=== PATIENT | male | born 1950 | race Caucasian/White ===

== ENCOUNTER 2017-02-06 16:23 | Emergency (ER) | payer MEDICARE ==
[2017-02-06] MEDS ORDERED: PANTOPRAZOLE 40 MG/10 ML VIAL IVP STA (17:04)
[2017-02-06] MEDS ORDERED: SODIUM CHLORIDE 0.9% 1,000 ML IV STA (17:04)
[2017-02-06] MEDS ORDERED: SODIUM CHLORIDE 0.9% 500 ML IV STA (17:04)
[2017-02-06] MEDS ORDERED: ONDANSETRON 4 MG/2 ML VIAL IVP STA (17:04)
[2017-02-06 17:19] LABS: Basophils % (A) 1 %; CH 29.4; CHCM 33.3; Eosinophils # (A) 0.2 k/uL (0-0.7); Eosinophils % (A) 2 %; HCT 31.4 % (39.0-53.0); HDW 3.28; HGB 10.1 gm/dL (13.0-17.5); Luc # (Auto) 0.22; Luc % (Auto) 4; Lymphocytes # (A) 1.2 k/uL (1.0-4.8); Lymphocytes % (A) 19 %; MCH 28.5 pg (25.0-35.0); MCHC 32.2 g/dL (31.0-37.0); MCV 88.4 fL (80.0-100.0); Mean Platelet Volume 10.5; Monocytes # (A) 0.4 k/uL (0-1.0); Monocytes % (A) 7 %; Neutrophils # (A) 4.3 k/uL (1.3-7.7); Neutrophils % (A) 68 %; RBC 3.55 m/uL (4.30-5.90); RDW 14.8 % (11.5-15.5); WBC 6.3 k/uL (3.8-10.6); WBC (Perox) 6.31
[2017-02-06 17:27] LABS: ALT 29 U/L (21-72); AST 24 U/L (17-59); Alkaline Phosphatase 73 U/L (38-126); Anion Gap 9 mmol/L; Blood Urea Nitrogen 15 mg/dL (9-20); Calcium 9.2 mg/dL (8.4-10.2); Carbon Dioxide 25 mmol/L (22-30); Chloride 107 mmol/L (98-107); Glucose 209 mg/dL (74-99); Non-African American GFR(MDRD) >60 (>60 ml/min/1.73 sqM); Potassium 4.3 mmol/L (3.5-5.1); Sodium 141 mmol/L (137-145); Total Bilirubin 0.2 mg/dL (0.2-1.3); Total Protein 6.6 g/dL (6.3-8.2)
[2017-02-06 17:33] LABS: INR 0.9 (<1.2); Prothrombin Time 9.7 sec (9.0-12.0)
[2017-02-06 17:42] LABS: Partial Thromboplastin Time 21.7 sec (22.0-30.0)
[2017-02-06 17:44] LABS: Creatine Kinase 50 U/L (55-170)
[2017-02-06 17:57] LABS: Creatine Kinase MB 0.3 ng/mL (0.0-2.4); Troponin I <0.012 ng/mL (0.000-0.034)
[2017-02-06 18:50] VITALS: RESP 18
[2017-02-06 20:03] VITALS: BP 155/94; PULSE 93; TEMP 97.7
--- NOTE | 2017-02-06 20:08 | ED ---
GI Bleed HPI - General Chief complaint: GI Bleed Stated complaint: Rectal Bleeding Time Seen by Provider: 02/06/17 17:03 Source: patient Mode of arrival: ambulatory Limitations: no limitations - History of Present Illness Initial comments: This 66-year-old white male presents complaining of a GI bleed. He apparently started having blood in his J-tube approximately 3-4 days ago. He states that he lost a fairly significant amount of blood but it is difficult to quantify. He stopped his Plavix and the bleeding stopped yesterday. He apparently has had several incidents that were quite similar stopped once he stopped his Plavix. He is on his Plavix due to previous CVA. He does have a history of previous colitis requiring colectomy and that is why he has the J-tube. He apparently has an appointment with Dr. Webb from gastroenterology tomorrow morning. He apparently has had some fatigue and has been sleeping more than normal. He is somewhat lightheaded with standing. He denies any chest pain or shortness of breath. He has not had any further bleeding since yesterday. No other complaints or modifying factors. - Related Data Home Medications Medication Instructions Recorded Confirmed Atorvastatin [Lipitor] 40 mg PO DAILY 02/06/17 02/06/17 Calcium Polycarbophil [Fibercon] 625 mg PO HS 02/06/17 02/06/17 DULoxetine HCL [Cymbalta] 60 mg PO DAILY 02/06/17 02/06/17 Fexofenadine HCl [Lu Allergy] 180 mg PO DAILY 02/06/17 02/06/17 Finasteride [Proscar] 5 mg PO DAILY 02/06/17 02/06/17 Insulin Glargine [Lantus] 36 unit SQ 02/06/17 02/06/17 L.acidoph,Paracasei, B.lactis 1 cap PO DAILY 02/06/17 02/06/17 [Probiotic] Linagliptin [Tradjenta] 5 mg PO DAILY 02/06/17 02/06/17 Losartan [Cozaar] 50 mg PO DAILY 02/06/17 02/06/17 Metoprolol Succinate [Toprol XL] 100 mg PO QAM 02/06/17 02/06/17 Multivit-Min/FA/Lycopen/Lutein 1 cap PO DAILY 02/06/17 02/06/17 [Centrum Silver Men Tablet] Tamsulosin [Flomax] 0.4 mg PO HS 02/06/17 02/06/17 Trospium Chloride [Sanctura] 20 mg PO BID 02/06/17 02/06/17 amLODIPine [Norvasc] 10 mg PO HS 02/06/17 02/06/17 Allergies Allergy/AdvReac Type Severity Reaction Status Date / Time codeine Allergy Rash/Hives Verified 02/06/17 16:46 morphine Allergy Rash/Hives Verified 02/06/17 16:46 Review of Systems ROS Statement: Those systems with pertinent positive or pertinent negative responses have been documented in the HPI. ROS Other: All systems not noted in ROS Statement are negative. Past Medical History Past Medical History: CVA/TIA, Diabetes Mellitus, Hypertension History of Any Multi-Drug Resistant Organisms: None Reported Past Surgical History: Joint Replacement Additional Past Surgical History / Comment(s): J pouch, left partial knee replacement Past Psychological History: Depression Smoking Status: Former smoker Past Alcohol Use History: Rare Past Drug Use History: None Reported General Exam - General Exam Comments Initial Comments: GENERAL: The patient is well nourished and well hydrated. VITAL SIGNS: Heart rate, blood pressure, respiratory rate reviewed as recorded in nurse's notes. EYES: Pupils are round and reactive. Extraocular movements are intact. No conjunctival / lid redness or swelling. ENT: No external evidence of injury, swelling, or ecchymosis. Airway is patent. Throat is clear. NECK: Nontender. No swelling or evidence of injury. No subcutaneous emphysema. Trachea is midline. No thyroid mass. HEART: Regular rate and rhythm. Good peripheral pulses. LUNGS/CHEST: Breath sounds clear and equal bilaterally. No rales, rhonchi, or wheezes. No ecchymosis, subcutaneous emphysema, or tenderness. ABDOMEN: Abdomen soft without tenderness. No palpable masses or organomegaly. No peritoneal signs. No abdominal wall swelling or ecchymosis. The patient has a J-tube in the right abdomen. EXTREMITIES: No extremity tenderness. Normal muscle tone and function. No thoracolumbar tenderness. NEUROLOGIC: Sensation is grossly intact. Cranial nerve exam reveals face is symmetrical, tongue is midline, speech is clear. SKIN: No abrasions or ecchymosis is noted. No induration or masses noted. PSYCHIATRIC: Alert and oriented. Appropriate behavior and judgment. Limitations: no limitations Course Vital Signs 02/06/17 02/06/17 02/06/17 16:33 18:50 20:00 Temperature 97.9 F 97.7 F Pulse Rate 86 74 93 Respiratory 16 18 18 Rate Blood Pressure 111/75 140/81 155/94 O2 Sat by Pulse 97 95 95 Oximetry Medical Decision Making - Medical Decision Making The patient was seen and examined. All diagnostics were reviewed. The laboratory does show an anemia with a hemoglobin of 10.1. There are no old for comparison. The family is unsure of what his previous hemoglobin was. He does receive some fluids in the emergency department and is feeling much improved. He is requesting to be discharged from the ER. Admission was discussed but he states that he does not want to stay in the hospital and has an appointment with a specialist in the morning. Overall, it is felt as though this is fairly reasonable. Return parameters are discussed. It is felt as though he would need a workup as to why he is having this GI bleeding. He is to discuss further Plavix dosing with his specialist and her primary doctor. He leaves in no identifiable distress. - Lab Data Result diagrams: 02/06/17 17:08 02/06/17 17:08 Lab Results 02/06/17 02/06/17 02/06/17 Range/Units 17:08 17:08 17:08 WBC 6.3 (3.8-10.6) k/uL RBC 3.55 L (4.30-5.90) m/uL Hgb 10.1 L (13.0-17.5) gm/dL Hct 31.4 L (39.0-53.0) % MCV 88.4 (80.0-100.0) fL MCH 28.5 (25.0-35.0) pg MCHC 32.2 (31.0-37.0) g/dL RDW 14.8 (11.5-15.5) % Plt Count 185 (150-450) k/uL Neutrophils % 68 % Lymphocytes % 19 % Monocytes % 7 % Eosinophils % 2 % Basophils % 1 % Neutrophils # 4.3 (1.3-7.7) k/uL Lymphocytes # 1.2 (1.0-4.8) k/uL Monocytes # 0.4 (0-1.0) k/uL Eosinophils # 0.2 (0-0.7) k/uL Basophils # 0.0 (0-0.2) k/uL PT (9.0-12.0) sec INR (<1.2) APTT (22.0-30.0) sec Sodium 141 (137-145) mmol/L Potassium 4.3 (3.5-5.1) mmol/L Chloride 107 (98-107) mmol/L Carbon Dioxide 25 (22-30) mmol/L Anion Gap 9 mmol/L BUN 15 (9-20) mg/dL Creatinine 0.90 (0.66-1.25) mg/dL Est GFR (MDRD) Af Amer >60 (>60 ml/min/1.73 sqM) Est GFR (MDRD) Non-Af >60 (>60 ml/min/1.73 sqM) Glucose 209 H (74-99) mg/dL Calcium 9.2 (8.4-10.2) mg/dL Total Bilirubin 0.2 (0.2-1.3) mg/dL AST 24 (17-59) U/L ALT 29 (21-72) U/L Alkaline Phosphatase 73 (38-126) U/L Total Creatine Kinase 50 L (55-170) U/L CK-MB (CK-2) 0.3 (0.0-2.4) ng/mL CK-MB (CK-2) Rel Index 0.6 Troponin I <0.012 (0.000-0.034) ng/mL Total Protein 6.6 (6.3-8.2) g/dL Albumin 4.1 (3.5-5.0) g/dL TSH (0.465-4.680) mIU/L 02/06/17 02/06/17 Range/Units 17:08 17:08 WBC (3.8-10.6) k/uL RBC (4.30-5.90) m/uL Hgb (13.0-17.5) gm/dL Hct (39.0-53.0) % MCV (80.0-100.0) fL MCH (25.0-35.0) pg MCHC (31.0-37.0) g/dL RDW (11.5-15.5) % Plt Count (150-450) k/uL Neutrophils % % Lymphocytes % % Monocytes % % Eosinophils % % Basophils % % Neutrophils # (1.3-7.7) k/uL Lymphocytes # (1.0-4.8) k/uL Monocytes # (0-1.0) k/uL Eosinophils # (0-0.7) k/uL Basophils # (0-0.2) k/uL PT 9.7 (9.0-12.0) sec INR 0.9 (<1.2) APTT 21.7 L (22.0-30.0) sec Sodium (137-145) mmol/L Potassium (3.5-5.1) mmol/L Chloride (98-107) mmol/L Carbon Dioxide (22-30) mmol/L Anion Gap mmol/L BUN (9-20) mg/dL Creatinine (0.66-1.25) mg/dL Est GFR (MDRD) Af Amer (>60 ml/min/1.73 sqM) Est GFR (MDRD) Non-Af (>60 ml/min/1.73 sqM) Glucose (74-99) mg/dL Calcium (8.4-10.2) mg/dL Total Bilirubin (0.2-1.3) mg/dL AST (17-59) U/L ALT (21-72) U/L Alkaline Phosphatase (38-126) U/L Total Creatine Kinase (55-170) U/L CK-MB (CK-2) (0.0-2.4) ng/mL CK-MB (CK-2) Rel Index Troponin I (0.000-0.034) ng/mL Total Protein (6.3-8.2) g/dL Albumin (3.5-5.0) g/dL TSH 1.820 (0.465-4.680) mIU/L Disposition Clinical Impression: GI bleed, Anemia, Fatigue Disposition: HOME SELF-CARE Condition: Fair Instructions: Gastrointestinal Bleeding (ED) Additional Instructions: Please follow-up with your GI specialist tomorrow as scheduled and return if symptoms do reoccur or worsen. Referrals: Miguel Bautista MD [Primary Care Provider] - 1-2 days Leonora Escoto MD [STAFF PHYSICIAN] - 1-2 days Time of Disposition: 20:07 Decision Date: 02/06/17 Decision Time: 20:07
== END 2017-02-06 20:20 | disposition home or self-care (01) ==
LOC: EC 16:23
DX: K92.2 Gastrointestinal hemorrhage, unspecified (principal); D64.9 Anemia, unspecified; I10 Essential (primary) hypertension; E11.9 Type 2 diabetes mellitus without complications; F32.9 Major depressive disorder, single episode, unspecified; Z87.891 Personal history of nicotine dependence; Z79.02 Long term (current) use of antithrombotics/antiplatelets; Z79.4 Long term (current) use of insulin; Z79.84 Long term (current) use of oral hypoglycemic drugs; Z79.899 Other long term (current) drug therapy; Z88.5 Allergy status to narcotic agent; Z86.73 Personal history of transient ischemic attack (TIA), and cerebral infarction without residual deficits; Z93.4 Other artificial openings of gastrointestinal tract status; Z53.20 Procedure and treatment not carried out because of patient's decision for unspecified reasons
CPT/HCPCS: 36415; 80053; 84443; 82550; 82553; 84484; 85025; 85610; 85730; 99284; 96374; 96361 ×3; C9113

== ENCOUNTER → 2017-02-09 | Outpatient (CLI) | payer MEDICARE ==
[2017-02-09 12:34] LABS: CH 28.1; CHCM 32.5; HCT 30.5 % (39.0-53.0); HDW 3.47; HGB 10.1 gm/dL (13.0-17.5); Hypochromasia Slight; MCH 28.7 pg (25.0-35.0); MCHC 33.1 g/dL (31.0-37.0); MCV 86.8 fL (80.0-100.0); Mean Platelet Volume 9.9; Poikilocytosis Slight; RBC 3.52 m/uL (4.30-5.90); WBC 6.5 k/uL (3.8-10.6)
[2017-02-09 12:50] LABS: % Iron Saturation 9.2 % (20-50)
[2017-02-09 13:21] LABS: Erythrocyte Sedimentation Rate 21 mm/hr (0-15)
== END | disposition home or self-care (01) ==
LOC: LABWHC1 11:50
PROVIDERS: ATTEND Physician Assistant
DX: D64.9 Anemia, unspecified (principal)
CPT/HCPCS: 36415; 82728; 83540; 83550; 85027; 85652

== ENCOUNTER 2017-02-28 01:23 | Emergency (ER) | payer MEDICARE, OTHER ==
[2017-02-28 01:32] VITALS: RESP 18; TEMP 97.1
[2017-02-28] MEDS ORDERED: RX INFO: IV CONTRAST WAS GIVEN 1 EACH MISC MISCELLANE PRN (01:34)
[2017-02-28] MEDS ORDERED: SODIUM CHLORIDE 0.9% 1,000 ML IV STA (01:34)
--- NOTE | 2017-02-28 01:58 | ED ---
Abdominal Pain HPI - General Chief Complaint: Abdominal Pain Stated Complaint: abd pain Time Seen by Provider: 02/28/17 01:33 Source: patient, family, RN notes reviewed Mode of arrival: ambulatory Limitations: no limitations - History of Present Illness Initial Comments: This is a 66-year-old male presents emergency Department with chief complaint of abdominal pain, unable to urinate or have a bowel movement. Patient states that he is not fully urinated since 2:00 issue afternoon. Patient states that he has to frequently go her only gets a few dribbles out. Patient went of severe right-sided abdominal pain. Patient is concerned that she's had a bowel resection 20 years ago and has a J-pouch. Patient states he normally has frequent bowel movements but states he has not had any bowel movement. Patient' s had a bowel obstruction shortly after his initial surgery was states that he has not had any recent complications. Patient states that he has been admitted to Hospital recently and is currently seen GI physician for rectal bleeding. Patient states that he scheduled this Monday for an upper and lower scope. Patient states that the bleeding has not worsened usual states it comes and goes. - Related Data Home Medications Medication Instructions Recorded Confirmed Atorvastatin [Lipitor] 40 mg PO DAILY 02/06/17 02/28/17 Calcium Polycarbophil [Fibercon] 625 mg PO HS 02/06/17 02/28/17 DULoxetine HCL [Cymbalta] 60 mg PO DAILY 02/06/17 02/28/17 Fexofenadine HCl [Lu Allergy] 180 mg PO DAILY 02/06/17 02/28/17 Finasteride [Proscar] 5 mg PO DAILY 02/06/17 02/28/17 Insulin Glargine [Lantus] 36 unit SQ HS 02/06/17 02/28/17 L.acidoph,Paracasei, B.lactis 1 cap PO DAILY 02/06/17 02/28/17 [Probiotic] Linagliptin [Tradjenta] 5 mg PO DAILY 02/06/17 02/28/17 Losartan [Cozaar] 50 mg PO DAILY 02/06/17 02/28/17 Metoprolol Succinate [Toprol XL] 100 mg PO QAM 02/06/17 02/28/17 Multivit-Min/FA/Lycopen/Lutein 1 cap PO DAILY 02/06/17 02/28/17 [Centrum Silver Men Tablet] Tamsulosin [Flomax] 0.4 mg PO HS 02/06/17 02/28/17 Trospium Chloride [Sanctura] 20 mg PO BID 02/06/17 02/28/17 amLODIPine [Norvasc] 10 mg PO HS 02/06/17 02/28/17 Dicyclomine [Bentyl] 10 mg PO TID 02/28/17 02/28/17 Previous Rx's Medication Instructions Recorded Hydrocodone/Acetaminophen [Banks 1 tab PO Q6HR PRN #20 tab 02/28/17 5-325] Ondansetron Odt [Zofran Odt] 4 mg PO Q8HR PRN #10 tab 02/28/17 Tamsulosin [Flomax] 0.4 mg PO DAILY #7 cap 02/28/17 Allergies Allergy/AdvReac Type Severity Reaction Status Date / Time codeine Allergy Rash/Hives Verified 02/28/17 01:31 morphine Allergy Rash/Hives Verified 02/28/17 01:31 Review of Systems ROS Statement: Those systems with pertinent positive or pertinent negative responses have been documented in the HPI. ROS Other: All systems not noted in ROS Statement are negative. Past Medical History Past Medical History: CVA/TIA, Diabetes Mellitus, Hypertension History of Any Multi-Drug Resistant Organisms: None Reported Past Surgical History: Appendectomy, Hernia Repair, Joint Replacement Additional Past Surgical History / Comment(s): J pouch, left partial knee replacement Past Psychological History: Depression Smoking Status: Former smoker Past Alcohol Use History: Rare Past Drug Use History: None Reported General Exam Limitations: no limitations General appearance: alert, in no apparent distress Head exam: Present: atraumatic, normocephalic, normal inspection Respiratory exam: Present: normal lung sounds bilaterally. Absent: respiratory distress, wheezes, rales, rhonchi, stridor Cardiovascular Exam: Present: regular rate, normal rhythm, normal heart sounds. Absent: systolic murmur, diastolic murmur, rubs, gallop, clicks GI/Abdominal exam: Present: soft, tenderness (Moderate right-sided abdominal tenderness), normal bowel sounds. Absent: distended, guarding, rebound, rigid Back exam: Absent: CVA tenderness (R), CVA tenderness (L) Neurological exam: Present: alert, oriented X3, CN II-XII intact Skin exam: Present: warm, dry, intact, normal color. Absent: rash Course Vital Signs 02/28/17 02/28/17 01:26 03:42 Temperature 97.1 F L Pulse Rate 85 81 Respiratory 18 18 Rate Blood Pressure 156/95 130/80 O2 Sat by Pulse 99 97 Oximetry Medical Decision Making - Medical Decision Making 66-year-old male presented for right abdominal pain, unable to urinate. Patient has a 7 mm UVJ stone. Patient states his painimproved at this time. Patient will need to follow up with urology secondary to size of the stone along with the hydronephrosis. Patient was informed that he had slight acute kidney injury related to the stone. Patient states he feels much improved after IV fluids. Patient will return if symptoms worsen. - Lab Data Result diagrams: 02/28/17 02:03 02/28/17 02:03 Lab Results 02/28/17 02/28/17 02/28/17 Range/Units 02:03 02:03 02:03 WBC 9.9 (3.8-10.6) k/uL RBC 3.75 L (4.30-5.90) m/uL Hgb 10.3 L (13.0-17.5) gm/dL Hct 31.2 L (39.0-53.0) % MCV 83.2 (80.0-100.0) fL MCH 27.3 (25.0-35.0) pg MCHC 32.9 (31.0-37.0) g/dL RDW 14.8 (11.5-15.5) % Plt Count 182 (150-450) k/uL Neutrophils % 81 % Lymphocytes % 9 % Monocytes % 6 % Eosinophils % 2 % Basophils % 1 % Neutrophils # 8.0 H (1.3-7.7) k/uL Lymphocytes # 0.9 L (1.0-4.8) k/uL Monocytes # 0.6 (0-1.0) k/uL Eosinophils # 0.2 (0-0.7) k/uL Basophils # 0.1 (0-0.2) k/uL Hypochromasia Slight Poikilocytosis Slight PT (9.0-12.0) sec INR (<1.2) APTT (22.0-30.0) sec Sodium 140 (137-145) mmol/L Potassium 4.0 (3.5-5.1) mmol/L Chloride 107 (98-107) mmol/L Carbon Dioxide 22 (22-30) mmol/L Anion Gap 11 mmol/L BUN 21 H (9-20) mg/dL Creatinine 1.50 H (0.66-1.25) mg/dL Est GFR (MDRD) Af Amer 56 (>60 ml/min/1.73 sqM) Est GFR (MDRD) Non-Af 47 (>60 ml/min/1.73 sqM) Glucose 157 H (74-99) mg/dL Plasma Lactic Acid Chris 1.0 (0.7-2.0) mmol/L Calcium 9.1 (8.4-10.2) mg/dL Total Bilirubin 0.3 (0.2-1.3) mg/dL AST 24 (17-59) U/L ALT 36 (21-72) U/L Alkaline Phosphatase 94 (38-126) U/L Total Protein 6.9 (6.3-8.2) g/dL Albumin 4.2 (3.5-5.0) g/dL Amylase 49 (30-110) U/L Lipase 153 (23-300) U/L Urine Color Urine Appearance (Clear) Urine pH (5.0-8.0) Ur Specific Unity (1.001-1.035) Urine Protein (Negative) Urine Glucose (UA) (Negative) Urine Ketones (Negative) Urine Blood (Negative) Urine Nitrite (Negative) Urine Bilirubin (Negative) Urine Urobilinogen (<2.0) mg/dL Ur Leukocyte Esterase (Negative) Urine RBC (0-5) /hpf Urine WBC (0-5) /hpf Urine Mucus (None) /hpf 02/28/17 02/28/17 Range/Units 02:03 02:51 WBC (3.8-10.6) k/uL RBC (4.30-5.90) m/uL Hgb (13.0-17.5) gm/dL Hct (39.0-53.0) % MCV (80.0-100.0) fL MCH (25.0-35.0) pg MCHC (31.0-37.0) g/dL RDW (11.5-15.5) % Plt Count (150-450) k/uL Neutrophils % % Lymphocytes % % Monocytes % % Eosinophils % % Basophils % % Neutrophils # (1.3-7.7) k/uL Lymphocytes # (1.0-4.8) k/uL Monocytes # (0-1.0) k/uL Eosinophils # (0-0.7) k/uL Basophils # (0-0.2) k/uL Hypochromasia Poikilocytosis PT 10.0 (9.0-12.0) sec INR 1.0 (<1.2) APTT 22.7 (22.0-30.0) sec Sodium (137-145) mmol/L Potassium (3.5-5.1) mmol/L Chloride (98-107) mmol/L Carbon Dioxide (22-30) mmol/L Anion Gap mmol/L BUN (9-20) mg/dL Creatinine (0.66-1.25) mg/dL Est GFR (MDRD) Af Amer (>60 ml/min/1.73 sqM) Est GFR (MDRD) Non-Af (>60 ml/min/1.73 sqM) Glucose (74-99) mg/dL Plasma Lactic Acid Chris (0.7-2.0) mmol/L Calcium (8.4-10.2) mg/dL Total Bilirubin (0.2-1.3) mg/dL AST (17-59) U/L ALT (21-72) U/L Alkaline Phosphatase (38-126) U/L Total Protein (6.3-8.2) g/dL Albumin (3.5-5.0) g/dL Amylase (30-110) U/L Lipase (23-300) U/L Urine Color Yellow Urine Appearance Clear (Clear) Urine pH 6.0 (5.0-8.0) Ur Specific Unity 1.009 (1.001-1.035) Urine Protein Negative (Negative) Urine Glucose (UA) Negative (Negative) Urine Ketones Negative (Negative) Urine Blood Moderate H (Negative) Urine Nitrite Negative (Negative) Urine Bilirubin Negative (Negative) Urine Urobilinogen <2.0 (<2.0) mg/dL Ur Leukocyte Esterase Negative (Negative) Urine RBC 64 H (0-5) /hpf Urine WBC 2 (0-5) /hpf Urine Mucus Rare H (None) /hpf Disposition Clinical Impression: Ureteral calculi, Acute kidney injury Disposition: HOME SELF-CARE Condition: Stable Instructions: Kidney Stones (ED) Additional Instructions: Please return to the Emergency Department if symptoms worsen or any other concerns. Prescriptions: Hydrocodone/Acetaminophen [Banks 5-325] 1 tab PO Q6HR PRN #20 tab PRN Reason: Pain Ondansetron Odt [Zofran Odt] 4 mg PO Q8HR PRN #10 tab PRN Reason: Nausea Tamsulosin [Flomax] 0.4 mg PO DAILY #7 cap Referrals: Miguel Bautista MD [Primary Care Provider] - 1-2 days Suleman David MD [STAFF PHYSICIAN] - 1-2 days Time of Disposition: 04:06
[2017-02-28 02:12] LABS: Basophils # (A) 0.1 k/uL (0-0.2); Basophils % (A) 1 %; CH 27.7; CHCM 33.4; Eosinophils # (A) 0.2 k/uL (0-0.7); Eosinophils % (A) 2 %; HCT 31.2 % (39.0-53.0); HDW 3.59; HGB 10.3 gm/dL (13.0-17.5); Hypochromasia Slight; Luc # (Auto) 0.18; Luc % (Auto) 2; Lymphocytes # (A) 0.9 k/uL (1.0-4.8); Lymphocytes % (A) 9 %; MCH 27.3 pg (25.0-35.0); MCHC 32.9 g/dL (31.0-37.0); MCV 83.2 fL (80.0-100.0); Monocytes # (A) 0.6 k/uL (0-1.0); Monocytes % (A) 6 %; Neutrophils % (A) 81 %; Poikilocytosis Slight; RBC 3.75 m/uL (4.30-5.90); RDW 14.8 % (11.5-15.5); WBC 9.9 k/uL (3.8-10.6); WBC (Perox) 10.16
[2017-02-28 02:20] LABS: Calcium 9.1 mg/dL (8.4-10.2); Partial Thromboplastin Time 22.7 sec (22.0-30.0); Total Bilirubin 0.3 mg/dL (0.2-1.3); Total Protein 6.9 g/dL (6.3-8.2)
[2017-02-28 03:04] LABS: Appearance,Urine Clear (Clear); Bilirubin,Urine Negative (Negative); Glucose,Urine (UA) Negative (Negative); Ketones,Urine Negative (Negative); Leukocyte Esterase,Urine Negative (Negative); Mucus,Urine Rare /hpf; Nitrite,Urine Negative (Negative); Particle Count 584; Protein,Urine Negative (Negative); RBC,Urine 64 /hpf (0-5); Specific Gravity,Urine 1.009 (1.001-1.035); UA Billing (MACRO vs. MICRO) MICRO; Urobilinogen,Urine <2.0 mg/dL (<2.0); WBC,Urine 2 /hpf (0-5)
[2017-02-28 03:44] VITALS: BP 130/80; PULSE 81
--- NOTE | 2017-02-28 04:03 | CT ---
EXAM: CT Abdomen and Pelvis Without Intravenous Contrast CLINICAL HISTORY: Right flank pain. TECHNIQUE: Axial computed tomography images of the abdomen and pelvis without intravenous contrast. DLP is 793.70 mGy-cm. This CT exam was performed using one or more of the following dose reduction techniques: automated exposure control, adjustment of the mA and/or kV according to patient size, and/or use of iterative reconstruction technique. COMPARISON: No relevant prior studies available. FINDINGS: Lower thorax: Dependent and linear atelectatic changes are seen involving both lower lobes and the lingula. ABDOMEN: Liver: Unremarkable. Gallbladder and bile ducts: Unremarkable. No calcified stones. No ductal dilation. Pancreas: Unremarkable. No ductal dilation. Spleen: Unremarkable. No splenomegaly. Adrenals: Unremarkable. No mass. Kidneys and ureters: There is a 0.7 cm stone in the distal right UVJ resulting in mild right-sided hydroureteronephrosis and perinephric fat stranding (series 3, image 145). A 0.7 cm nonobstructing stone is seen in the lower pole of the right kidney. At least 2 hypodense lesions are seen in the left kidney, measuring up to 2.5 cm, likely representing cysts. Stomach and bowel: Postoperative changes are seen involving the bowel, suboptimally evaluated on this noncontrast study. Correlate clinically with patient's surgical history. No obstruction. No mucosal thickening. PELVIS: Bladder: Unremarkable. No stones. Reproductive: Unremarkable as visualized. ABDOMEN and PELVIS: Intraperitoneal space: Unremarkable. No free air. No significant fluid collection. Bones/joints: Mild/moderate degenerative changes are seen throughout the osseous structures. No acute fracture. No dislocation. Soft tissues: Postoperative changes are seen involving anterior abdominal wall. Vasculature: Moderate atherosclerotic vascular calcifications involving the intra-abdominal aorta and its branches. No abdominal aortic aneurysm. Lymph nodes: Prominent right lower quadrant mesenteric lymph nodes are seen, measuring up to 1.5 cm in short axis, of unknown significance. Prominent portal caval and cathy hepatic lymph nodes, measuring up to 1.6 cm in diameter, of unknown significance. Lymph nodes are suboptimally evaluated on non-IV contrast studies. IMPRESSION: 1. A 0.7 cm stone in the distal right UVJ resulting in mild right-sided hydroureteronephrosis and perinephric fat stranding. 2. Right nephrolithiasis. 3. Postoperative changes involving the bowel and anterior abdominal wall, suboptimally evaluate on this noncontrast study. Correlate clinically with patient's surgical history. 4. Other nonacute findings, as above.
[2017-02-28] MEDS ORDERED: traMADol 50 MG STARTER PACK 3 TAB BTL PO STA (04:10)
== END 2017-02-28 04:18 | disposition home or self-care (01) ==
LOC: EC 01:23
DX: N20.1 Calculus of ureter (principal); N17.9 Acute kidney failure, unspecified; E11.9 Type 2 diabetes mellitus without complications; I10 Essential (primary) hypertension; F32.9 Major depressive disorder, single episode, unspecified; Z90.49 Acquired absence of other specified parts of digestive tract; Z87.891 Personal history of nicotine dependence; Z98.890 Other specified postprocedural states; Z88.5 Allergy status to narcotic agent; Z79.4 Long term (current) use of insulin; Z79.84 Long term (current) use of oral hypoglycemic drugs; Z79.899 Other long term (current) drug therapy
CPT/HCPCS: 36415; 51798; 74176; 80053; 81001; 82150; 83605; 83690; 85025; 85610; 85730; 96360; 96361; 99284

== ENCOUNTER 2017-03-03 07:04 | Day surgery (SDC) | payer MEDICARE, OTHER ==
[2017-03-02 08:44] VITALS: BMI 28.7
[~2017-03-03 07:04] MED LIST: LACTATED RINGERS 1,000 ML IV SCH; LIDOCAINE 1% 20 ML VIAL (10MG/ML) FOR IV START INTRADERMA PRN
[2017-03-03 07:16] VITALS: RESP 18; TEMP 98
[2017-03-03] MEDS ORDERED: LIDOCAINE 1% 20 ML VIAL (10MG/ML) FOR IV START INTRADERMA ONE (07:18)
[2017-03-03] MEDS ORDERED: LACTATED RINGERS 1,000 ML IV ONE (07:18)
[2017-03-03 07:28] LABS: Glucose,Whole Blood 111 mg/dL (75-99)
[2017-03-03] MEDS ORDERED: LIDOCAINE 1% INJ 10MG/ML (20 ML MDV) ONE (09:10)
[2017-03-03] MEDS ORDERED: PROPOFOL 10 MG/ML 20 ML VIAL IV ONE (09:10)
--- NOTE | 2017-03-03 09:44 | P.PCN ---
Date of Procedure: 03/03/17 Procedure(s) Performed: Brief history: Patient is a pleasant 66-year-old white male, scheduled for an elective upper endoscopy as well as pouchoscopy as a part of evaluation of abdominal pain and intermittent rectal bleeding. 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 Recently has been having rectal bleeding and about 2 weeks ago at significant amount of rectal bleeding that lasted for 2 days. His last pouchoscopy was done at [facility] a year ago and was told that he has a polyp that is being watched closely. Procedure performed: Esophagogastroduodenoscopy with biopsy Pouchoscopy with snare polypectomy and biopsy Preoperative diagnosis: Abdominal pain Rectal bleeding Anesthesia: MAC Procedure: After informed consent was obtained from the patient was brought into the endoscopy unit and IV sedation was administered by anesthesia under continuous monitoring. Initially upper endoscopy was done. The Olympus GF 160 video endoscope was inserted inserted into the mouth and esophagus intubated without any difficulty and was gradually advanced into the stomach and duodenum and carefully examined. The bulb and second part of the duodenum appeared normal. The scope was then withdrawn into the stomach adequately insufflated with air and upon careful examination the antrum had mild gastritis and biopsies were done from this area. The body, cardia and fundus appeared normal. The scope was then withdrawn into the esophagus. The GE junction was located at 40 cm to the incisors. It appeared regular with no erythema erosions or ulcerations. Rest of the esophagus appeared normal. Patient tolerated the procedure well. At this time the patient continued to remain sedation. Initial digital rectal examination was normal. Olympus CF 160 video colonoscope was then inserted into the and there was 5 cm of rectum identified. The anastomosis was identified at this area that appeared slightly narrowed. The ileal pouch was noted which appeared normal. It was a 2-3 cm polyp noted in the distal part of the ileal pouch with some oozing which is partially removed by snare polypectomy admission there was significant oozing and subsequent to stop by placement of a resolution clip. Adjacent to this area there were several small polyps measuring 5-6 cm in size all of which were removed by snare polypectomy. Scope was advanced with a 6 cm into the distal ileum that appeared normal except in one area which was in the distal part of the pouch with is some mild inflammation identified and biopsies were done from this area. Retroflexion was performed in the rectum and no lesions were noted. Patient tolerated the procedure well. Impression: 1.Upper endoscopy revealed mild antral gastritis but no evidence of esophagitis or peptic ulcer disease 2.Pouchoscopy revealed a 2-3 cm polyp in the distal part of the pouch with some oozing status post partial snare polypectomy followed by resolution clip placement to stop the bleeding also there were several small polyps measuring 5- 6 mm in size which were removed by snare polypectomy. 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 He was advised to follow with the biopsy results and he'll be seen in the office in 2 weeks. We'll plan a repeat pouchoscopy in one year based on the biopsy results
[2017-03-03 10:13] LABS: Glucose,Whole Blood 99 mg/dL (75-99)
[2017-03-03] MEDS ORDERED: ONDANSETRON 4 MG/2 ML VIAL IVP ONE (10:30)
[2017-03-03 10:55] VITALS: BP 123/75; PULSE 69
== END 2017-03-03 11:10 | disposition home or self-care (01) ==
LOC: ORWHC2ENDO 07:04
PROVIDERS: ATTEND Internal Medicine Gastroenterology
DX: K63.3 Ulcer of intestine (principal); K51.90 Ulcerative colitis, unspecified, without complications; Z90.49 Acquired absence of other specified parts of digestive tract; Z98.0 Intestinal bypass and anastomosis status; Z86.73 Personal history of transient ischemic attack (TIA), and cerebral infarction without residual deficits; E11.9 Type 2 diabetes mellitus without complications; Z79.4 Long term (current) use of insulin; Z87.19 Personal history of other diseases of the digestive system; Z79.899 Other long term (current) drug therapy
CPT/HCPCS: 88305; 88342; 43239; 44386; J2405; J2001; J2704; C1819; 45331; 45334; 45338

== ENCOUNTER → 2017-06-20 | Outpatient (CLI) | payer MEDICARE ==
[2017-06-20 16:24] LABS: ALT 33 U/L (21-72); AST 23 U/L (17-59); Albumin 4.4 g/dL (3.5-5.0); Alkaline Phosphatase 91 U/L (38-126); Anion Gap 13 mmol/L; Blood Urea Nitrogen 23 mg/dL (9-20); Calcium 9.8 mg/dL (8.4-10.2); Carbon Dioxide 26 mmol/L (22-30); Chloride 105 mmol/L (98-107); Glucose 99 mg/dL (74-99); Potassium 4.7 mmol/L (3.5-5.1); Sodium 144 mmol/L (137-145); Total Bilirubin 0.3 mg/dL (0.2-1.3); Total Protein 7.5 g/dL (6.3-8.2)
[2017-06-20 17:40] LABS: Anisocytosis Slight; HCT 39.8 % (39.0-53.0); HGB 12.2 gm/dL (13.0-17.5); Hypochromasia Moderate; MCH 25.8 pg (25.0-35.0); MCHC 30.6 g/dL (31.0-37.0); MCV 84.5 fL (80.0-100.0); Mean Platelet Volume 11.3; Microcytosis Slight; Platelet Count 176 k/uL (150-450); RBC 4.71 m/uL (4.30-5.90); RDW 19.6 % (11.5-15.5); WBC 6.7 k/uL (3.8-10.6)
[2017-06-20 18:38] LABS: Band Neutrophils % 1 %; Eosinophils # (M) 0.13 k/uL (0-0.7); Lymphocytes # (M) 1.41 k/uL (1.0-4.8); Monocytes # (M) 0.47 k/uL (0-1.0); Neutrophils % (M) 69 %; Nucleated Red Blood Cells 0 /100 WBC (0-0); Ovalocytes Present; Total Cells Counted 100
[2017-06-20 19:50] LABS: Erythrocyte Sedimentation Rate 16 mm/hr (0-15)
[2017-06-21 11:34] LABS: Iron Saturation 7.69 (15.00-50.00)
== END | disposition home or self-care (01) ==
LOC: LABWHC1 15:32
PROVIDERS: ATTEND Internal Medicine Gastroenterology
DX: D50.9 Iron deficiency anemia, unspecified (principal)
CPT/HCPCS: 36415; 80053; 82728; 83516; 83540; 83550; 85025; 85652; 86141

== ENCOUNTER 2017-07-21 08:01 | Day surgery (SDC) | payer MEDICARE, OTHER ==
[2017-07-20 14:14] VITALS: BMI 26.8
[~2017-07-21 08:01] MED LIST changes: -LIDOCAINE 1% 20 ML VIAL (10MG/ML) FOR IV START INTRADERMA PRN
[2017-07-21 08:28] VITALS: RESP 18; TEMP 98.5
[2017-07-21] MEDS ORDERED: LIDOCAINE 1% 20 ML VIAL (10MG/ML) FOR IV START INTRADERMA ONE (08:50)
[2017-07-21] MEDS ORDERED: LIDOCAINE 1% INJ 10MG/ML (20 ML MDV) ONE (08:53)
[2017-07-21] MEDS ORDERED: PROPOFOL 10 MG/ML 20 ML VIAL IV ONE (08:53)
[2017-07-21 08:55] LABS: Glucose,Whole Blood 151 mg/dL (75-99)
--- NOTE | 2017-07-21 09:36 | P.PCN ---
Date of Procedure: 07/21/17 Procedure(s) Performed: BRIEF HISTORY: Patient is a 67-year-old pleasant white male scheduled for an elective pouchoscopy as a part of evaluation of severe rectal bleeding for the last 2 weeks' duration. Patient has a history of ulcerative colitis for which she underwent total proctocolectomy with ileal pouch anal anastomosis several years ago. He had a fpouchoscopy performed in February 2017 and was noted to havea 2-3 cm friable polyp in the distal part of the pouch which was partially removed and the biopsy revealed inflammatory polyp. 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 Because of the severe bleeding is scheduled for repeat Pouchoscopy today. PROCEDURE PERFORMED: Pouchoscopy with snare polypectomy and argon plasma coagulation. PREOPERATIVE DIAGNOSIS: severe rectal bleeding of 2 days' duration. IV sedation per Anesthesia. PROCEDURE: After informed consent was obtained, the patient, was brought into the endoscopy unit. IV sedation was administered by Anesthesia under continuous monitoring. Digital rectal examination was normal. Initially the Olympus CF- 160 flexible video colonoscope was then inserted into the pouch and the scope was advanced at least 30 cm into the distal ileum. There was no active bleeding identified. At 15 cm from the anal verge there was some friability noted with mucosal erythema at the anastomosis and this was coagulated with argon plasma. At 10 cm from the anal verge there was a 2-3 cm very friable polyp with no active bleeding identified. As this was thought to be the source of bleeding I proceeded with snare polypectomy. Following polypectomy there was small oozing identified but it stopped spontaneously. The distal pouch appeared normal. There was no evidence of active pouchitis.. The patient tolerated the procedure well. IMPRESSION: 2- 3 cm polyp in the distal pouch at approximately 10 cm from the anal verge status post snare polypectomy. Mild erythema with friability noted at the anastomosis at 15 cm from the anal verge status post argon plasma coagulation RECOMMENDATIONS: Findings of this examination were discussed with the patient as well as his family. He was advised to hold off on aspirin for 2 weeks. He will notify me if he has any rectal bleeding. 67
[2017-07-21 10:44] VITALS: BP 144/77; PULSE 76
[2017-07-21 11:10] LABS: Anisocytosis Slight; Basophils % (A) 0 %; Eosinophils % (A) 0 %; HCT 31.8 % (39.0-53.0); Hypochromasia Marked; Lymphocytes # (A) 1.2 k/uL (1.0-4.8); Lymphocytes % (A) 14 %; MCH 25.1 pg (25.0-35.0); MCHC 29.8 g/dL (31.0-37.0); MCV 84.2 fL (80.0-100.0); Mean Platelet Volume 9.6; Monocytes # (A) 0.9 k/uL (0-1.0); Monocytes % (A) 10 %; Neutrophils # (A) 6.2 k/uL (1.3-7.7); Neutrophils % (A) 72 %; Platelet Count 222 k/uL (150-450); RBC 3.78 m/uL (4.30-5.90); RDW 17.5 % (11.5-15.5); WBC 8.5 k/uL (3.8-10.6)
[2017-07-21 11:24] LABS: HGB 9.5 gm/dL (13.0-17.5)
== END 2017-07-21 11:03 | disposition home or self-care (01) ==
LOC: ORWHC2ENDO 08:01
PROVIDERS: ATTEND Internal Medicine Gastroenterology
DX: K63.5 Polyp of colon (principal); K91.850 Pouchitis; Z90.49 Acquired absence of other specified parts of digestive tract; Z87.19 Personal history of other diseases of the digestive system; I10 Essential (primary) hypertension; E78.5 Hyperlipidemia, unspecified; E11.9 Type 2 diabetes mellitus without complications; Z86.73 Personal history of transient ischemic attack (TIA), and cerebral infarction without residual deficits; Z79.82 Long term (current) use of aspirin; Z79.4 Long term (current) use of insulin; Z79.899 Other long term (current) drug therapy; Z88.5 Allergy status to narcotic agent
CPT/HCPCS: 88305; 85025; 44799; 44386; J2001; J2704; 45338; 45346; 45386

== ENCOUNTER 2017-11-19 13:17 | Inpatient (IN) | payer MEDICARE, OTHER ==
[2017-11-19] MEDS ORDERED: cefTRIAXone IN SWFI 2,000 MG/20 ML SYRINGE IVP STA (14:18)
[2017-11-19] MEDS: SODIUM CHLORIDE 0.9% 500 ML IV SCH ×3 (14:55→15:00)
[2017-11-19 15:00] LABS: Basophils % (A) 0 %; Eosinophils # (A) 0.1 k/uL (0-0.7); Eosinophils % (A) 1 %; HCT 35.6 % (39.0-53.0); Lymphocytes # (A) 0.5 k/uL (1.0-4.8); Lymphocytes % (A) 3 %; MCH 28.9 pg (25.0-35.0); MCHC 33.7 g/dL (31.0-37.0); MCV 85.8 fL (80.0-100.0); Mean Platelet Volume 8.5; Monocytes # (A) 0.4 k/uL (0-1.0); Monocytes % (A) 3 %; Neutrophils # (A) 13.7 k/uL (1.3-7.7); Neutrophils % (A) 93 %; Platelet Count 130 k/uL (150-450); RBC 4.15 m/uL (4.30-5.90); RDW 15.7 % (11.5-15.5); WBC 14.8 k/uL (3.8-10.6)
[2017-11-19 15:08] LABS: ALT 32 U/L (21-72); AST 22 U/L (17-59); Albumin 3.9 g/dL (3.5-5.0); Alkaline Phosphatase 58 U/L (38-126); Anion Gap 15 mmol/L; Blood Urea Nitrogen 17 mg/dL (9-20); Calcium 9.5 mg/dL (8.4-10.2); Carbon Dioxide 21 mmol/L (22-30); Chloride 104 mmol/L (98-107); Glucose 146 mg/dL (74-99); Potassium 3.7 mmol/L (3.5-5.1); Sodium 140 mmol/L (137-145); Total Bilirubin 0.5 mg/dL (0.2-1.3); Total Protein 5.9 g/dL (6.3-8.2)
[2017-11-19 15:08] LABS: Appearance,Urine Turbid (Clear); Bacteria,Urine Rare /hpf; Bilirubin,Urine Negative (Negative); Blood,Urine Moderate (Negative); Color,Urine Yellow; Glucose,Urine (UA) Negative (Negative); Ketones,Urine Trace (Negative); Leukocyte Esterase,Urine Large (Negative); Mucus,Urine Many /hpf; Nitrite,Urine Negative (Negative); PH, Urine 5.5 (5.0-8.0); Protein,Urine 2+ (Negative); RBC,Urine 62 /hpf (0-5); Specific Gravity,Urine 1.024 (1.001-1.035); WBC,Urine >182 /hpf (0-5)
[2017-11-19 15:15] LABS: Prothrombin Time 9.6 sec (9.0-12.0)
[2017-11-19 15:23] LABS: Partial Thromboplastin Time 20.7 sec (22.0-30.0)
--- NOTE | 2017-11-19 15:39 | XR ---
EXAMINATION TYPE: XR abdomen acute w cxr DATE OF EXAM: 11/19/2017 COMPARISON: NONE HISTORY: Chest pain and abdominal pain with fever TECHNIQUE: Single view chest radiograph and 2 view abdominal radiographs were performed FINDINGS: Chest: No focal consolidation, pleural effusion or pneumothorax. Left basilar subsegmental linear atelectasis is seen. Descending thoracic aorta is tortuous. Cardiomediastinal silhouette is wi thin normal limits. Osseous structures appear intact. ABDOMEN: The cecum is mildly enlarged measuring 10.0 cm. Surgical clips are scattered throughout the right lower quadrant and right mid abdomen as well as the left upper quadrant with surgical sutures i n the right mid abdomen. There is lack of haustration of the colon with mild prominence. No dilated c olon. No dilated loops of small bowel. Surgical sutures are noted within the pelvis. 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 Nonspecific sclerotic focus within the right femur. IMPRESSION: 1. Minimal left basilar subsegmental atelectasis. 2. Mildly enlarged cecum and lack of haustration within the nondilated colon. Findings could represen t underlying colitis colonic ileus.
[2017-11-19] MEDS ORDERED: ONDANSETRON 4 MG/2 ML VIAL IVP PRN (16:13)
[2017-11-19] MEDS ORDERED: NALOXONE 0.4 MG/ML 1 ML VIAL IV PRN (16:13)
--- NOTE | 2017-11-19 16:13 | ED ---
General Adult HPI - General Chief complaint: Urogenital Stated complaint: Male Gu, Fever Time Seen by Provider: 11/19/17 13:42 Source: patient Mode of arrival: wheelchair Limitations: no limitations - History of Present Illness Initial comments: 67 years old gentleman comes in with difficulty voiding headache generalized weakness dysuria and he noticed some violent kind of shakes, rigors. He has a quite a complex medical history he had ulcerative colitis him he had a colectomy done he is diabetic her multiple abdominal surgeries and history of bowel obstruction transient atrial fibrillation. He headache earlier now it has resolved no neck stiffness no chest pain or shortness of breath no abdominal pain as such fever or chills right worse no signs of any TIA or CVA - Related Data Home Medications Medication Instructions Recorded Confirmed Atorvastatin [Lipitor] 40 mg PO HS 02/06/17 11/19/17 DULoxetine HCL [Cymbalta] 60 mg PO DAILY 02/06/17 11/19/17 Fexofenadine HCl [Lu Allergy] 180 mg PO BID PRN 02/06/17 11/19/17 Finasteride [Proscar] 5 mg PO DAILY 02/06/17 11/19/17 Linagliptin [Tradjenta] 5 mg PO DAILY 02/06/17 11/19/17 Losartan [Cozaar] 25 mg PO DAILY 02/06/17 11/19/17 Metoprolol Succinate [Toprol XL] 100 mg PO QAM 02/06/17 11/19/17 Multivit-Min/FA/Lycopen/Lutein 1 cap PO DAILY 02/06/17 11/19/17 [Centrum Silver Men Tablet] Tamsulosin [Flomax] 0.4 mg PO HS 02/06/17 11/19/17 Trospium Chloride [Sanctura] 20 mg PO BID 02/06/17 11/19/17 amLODIPine [Norvasc] 10 mg PO HS 02/06/17 11/19/17 Dicyclomine [Bentyl] 10 mg PO QID PRN 02/28/17 11/19/17 Aspirin [Adult Low Dose Aspirin EC] 81 mg PO MOWEFR 07/20/17 11/19/17 Diphenox-Atrop 2.5-0.025 mg 1 - 2 tab PO QID PRN 07/20/17 11/19/17 [Lomotil] Meloxicam 15 mg PO DAILY 07/20/17 11/19/17 Omeprazole 20 mg PO DAILY 07/20/17 11/19/17 Cholecalciferol [Vitamin D3] 5,000 unit PO DAILY 11/19/17 11/19/17 Ferrous Sulfate [Iron (65 MG 325 mg PO HS 11/19/17 11/19/17 Elemental)] Insulin Glargine,Hum.rec.anlog 15 unit SQ HS 11/19/17 11/19/17 [Basaglar Kwikpen U-100] Allergies Allergy/AdvReac Type Severity Reaction Status Date / Time codeine Allergy Rash/Hives Verified 11/19/17 14:02 morphine Allergy Rash/Hives Verified 11/19/17 14:02 Review of Systems ROS Statement: Those systems with pertinent positive or pertinent negative responses have been documented in the HPI. ROS Other: All systems not noted in ROS Statement are negative. Past Medical History Past Medical History: CVA/TIA, Diabetes Mellitus, Eye Disorder, Hearing Disorder / Deafness, Hyperlipidemia, Hypertension, Prostate Disorder Additional Past Medical History / Comment(s): 05/2015 CVA, continues to have occasional balance issues. BLOOD IN STOOL ON/OFF., Ulcerative Colitis, hx kidney stone. BPH. hs J-pouch. History of Any Multi-Drug Resistant Organisms: None Reported Past Surgical History: Appendectomy, Bowel Resection, Hernia Repair, Joint Replacement Additional Past Surgical History / Comment(s): APPENDEX RUPTURE, HAS J pouch. Left partial knee replacement. COLONOSCOPY, bilateral cataract extraction with lens implants Past Anesthesia/Blood Transfusion Reactions: No Reported Reaction Past Psychological History: Depression Smoking Status: Former smoker Past Alcohol Use History: Rare Past Drug Use History: None Reported - Past Family History Mother Family Medical History: Cancer Additional Family Medical History / Comment(s): COLON CA General Exam Limitations: no limitations Course Vital Signs 11/19/17 11/19/17 13:26 15:40 Temperature 98.5 F Pulse Rate 105 H 94 Respiratory 18 16 Rate Blood Pressure 115/75 119/70 O2 Sat by Pulse 98 97 Oximetry Upon reassessment noticed white count is 16 with a left shift lactate is 2.2 urinalysis is significant with a severe cystitis probably this is what caused the urosepsis or sepsis. Chest x-ray and abdominal x-rays were unremarkable these findings were discussed with the patient and was advised that we admit him with the IV antibiotics and IV fluids she agreed with the patient be admitted to Dr. Chavez service EKG Findings - EKG Comments: EKG Findings:: EKG is sinus tachycardia ventricular rate 75 NM interval is 190 QRS duration is 90 QT/QTC 320/422 and aVF this EKG does not reveal any ST elevation or ST depression Medical Decision Making - Lab Data Result diagrams: 11/19/17 14:45 11/19/17 14:45 Lab Results 11/19/17 11/19/17 11/19/17 Range/Units 14:45 14:45 14:45 WBC 14.8 H (3.8-10.6) k/uL RBC 4.15 L (4.30-5.90) m/uL Hgb 12.0 L (13.0-17.5) gm/dL Hct 35.6 L (39.0-53.0) % MCV 85.8 (80.0-100.0) fL MCH 28.9 (25.0-35.0) pg MCHC 33.7 (31.0-37.0) g/dL RDW 15.7 H (11.5-15.5) % Plt Count 130 L (150-450) k/uL Neutrophils % 93 % Lymphocytes % 3 % Monocytes % 3 % Eosinophils % 1 % Basophils % 0 % Neutrophils # 13.7 H (1.3-7.7) k/uL Lymphocytes # 0.5 L (1.0-4.8) k/uL Monocytes # 0.4 (0-1.0) k/uL Eosinophils # 0.1 (0-0.7) k/uL Basophils # 0.0 (0-0.2) k/uL PT (9.0-12.0) sec INR (<1.2) APTT (22.0-30.0) sec Sodium 140 (137-145) mmol/L Potassium 3.7 (3.5-5.1) mmol/L Chloride 104 (98-107) mmol/L Carbon Dioxide 21 L (22-30) mmol/L Anion Gap 15 mmol/L BUN 17 (9-20) mg/dL Creatinine 0.70 (0.66-1.25) mg/dL Est GFR (CKD-EPI)AfAm >90 (>60 ml/min/1.73 sqM) Est GFR (CKD-EPI)NonAf >90 (>60 ml/min/1.73 sqM) Glucose 146 H (74-99) mg/dL Plasma Lactic Acid Chris 2.2 H* (0.7-2.0) mmol/L Calcium 9.5 (8.4-10.2) mg/dL Total Bilirubin 0.5 (0.2-1.3) mg/dL AST 22 (17-59) U/L ALT 32 (21-72) U/L Alkaline Phosphatase 58 (38-126) U/L Troponin I (0.000-0.034) ng/mL Total Protein 5.9 L (6.3-8.2) g/dL Albumin 3.9 (3.5-5.0) g/dL Urine Color Urine Appearance (Clear) Urine pH (5.0-8.0) Ur Specific [place] (1.001-1.035) Urine Protein (Negative) Urine Glucose (UA) (Negative) Urine Ketones (Negative) Urine Blood (Negative) Urine Nitrite (Negative) Urine Bilirubin (Negative) Urine Urobilinogen (<2.0) mg/dL Ur Leukocyte Esterase (Negative) Urine RBC (0-5) /hpf Urine WBC (0-5) /hpf Urine WBC Clumps (None) /hpf Urine Bacteria (None) /hpf Urine Mucus (None) /hpf 11/19/17 11/19/17 11/19/17 Range/Units 14:45 14:45 14:57 WBC (3.8-10.6) k/uL RBC (4.30-5.90) m/uL Hgb (13.0-17.5) gm/dL Hct (39.0-53.0) % MCV (80.0-100.0) fL MCH (25.0-35.0) pg MCHC (31.0-37.0) g/dL RDW (11.5-15.5) % Plt Count (150-450) k/uL Neutrophils % % Lymphocytes % % Monocytes % % Eosinophils % % Basophils % % Neutrophils # (1.3-7.7) k/uL Lymphocytes # (1.0-4.8) k/uL Monocytes # (0-1.0) k/uL Eosinophils # (0-0.7) k/uL Basophils # (0-0.2) k/uL PT 9.6 (9.0-12.0) sec INR 1.0 (<1.2) APTT 20.7 L (22.0-30.0) sec Sodium (137-145) mmol/L Potassium (3.5-5.1) mmol/L Chloride (98-107) mmol/L Carbon Dioxide (22-30) mmol/L Anion Gap mmol/L BUN (9-20) mg/dL Creatinine (0.66-1.25) mg/dL Est GFR (CKD-EPI)AfAm (>60 ml/min/1.73 sqM) Est GFR (CKD-EPI)NonAf (>60 ml/min/1.73 sqM) Glucose (74-99) mg/dL Plasma Lactic Acid Chris (0.7-2.0) mmol/L Calcium (8.4-10.2) mg/dL Total Bilirubin (0.2-1.3) mg/dL AST (17-59) U/L ALT (21-72) U/L Alkaline Phosphatase (38-126) U/L Troponin I <0.012 (0.000-0.034) ng/mL Total Protein (6.3-8.2) g/dL Albumin (3.5-5.0) g/dL Urine Color Yellow Urine Appearance Turbid (Clear) Urine pH 5.5 (5.0-8.0) Ur Specific [place] 1.024 (1.001-1.035) Urine Protein 2+ H (Negative) Urine Glucose (UA) Negative (Negative) Urine Ketones Trace H (Negative) Urine Blood Moderate H (Negative) Urine Nitrite Negative (Negative) Urine Bilirubin Negative (Negative) Urine Urobilinogen 3.0 (<2.0) mg/dL Ur Leukocyte Esterase Large H (Negative) Urine RBC 62 H (0-5) /hpf Urine WBC >182 H (0-5) /hpf Urine WBC Clumps Few H (None) /hpf Urine Bacteria Rare H (None) /hpf Urine Mucus Many H (None) /hpf Disposition Clinical Impression: Sepsis, UTI (urinary tract infection), Generalized weakness Disposition: ADMITTED IP TO THIS [facility] Condition: Good Referrals: Miguel Bautista MD [Primary Care Provider] - 1-2 days
[2017-11-19] MEDS ORDERED: DICYCLOMINE 10 MG CAP PO PRN (16:17)
[2017-11-19] MEDS ORDERED: DIPHENOX-ATROP 2.5-0.025 MG 1 EACH TAB PO PRN (16:17)
[2017-11-19] MEDS ORDERED: LORATADINE 10 MG TAB PO PRN (16:17)
[2017-11-19] MEDS: ACETAMINOPHEN TAB 325 MG TAB PO PRN (16:43)
[2017-11-19] MEDS: SODIUM CHLORIDE 0.9% 1,000 ML IV SCH (17:00)
[2017-11-19 17:18] LABS: Glucose,Whole Blood 100 mg/dL (75-99)
[2017-11-19 20:58] LABS: Glucose,Whole Blood 193 mg/dL (75-99)
[2017-11-19] MEDS: ATORVASTATIN 40 MG TAB PO SCH (21:13)
[2017-11-19] MEDS: FERROUS SULFATE 325 MG TAB PO SCH (21:13)
[2017-11-19] MEDS: TAMSULOSIN 0.4 MG CAP.ER.24H PO SCH (21:13)
[2017-11-19] MEDS: amLODIPine 10 MG TAB PO SCH (21:14)
[2017-11-19] MEDS: INSULIN DETEMIR 100 UNIT/ML 10 ML VIAL SQ SCH (21:15)
[2017-11-20] MEDS ORDERED: SODIUM CHLORIDE 0.65% NASAL SPRAY 44 ML BTL NASAL PRN (05:56)
[2017-11-20] MEDS: ACETAMINOPHEN TAB 325 MG TAB PO PRN ×2 (06:16→20:01)
[2017-11-20] MEDS: SODIUM CHLORIDE 0.9% 1,000 ML IV SCH ×3 (06:17→21:45)
[2017-11-20 07:35] LABS: Glucose,Whole Blood 134 mg/dL (75-99)
[2017-11-20] MEDS: METOPROLOL SUCCINATE (ER) 100 MG TAB.ER.24H PO SCH (08:32)
[2017-11-20] MEDS: MELOXICAM 7.5 MG TAB PO SCH (08:32)
[2017-11-20] MEDS: LINAGLIPTIN 5 MG TABLET PO SCH (08:32)
[2017-11-20] MEDS: OXYBUTYNIN XL 5 MG TAB.ER.24 PO SCH (08:32)
[2017-11-20] MEDS: FINASTERIDE 5 MG TAB PO SCH (08:33)
[2017-11-20] MEDS: DULoxetine HCL 60 MG CAPSULE.DR PO SCH (08:33)
[2017-11-20] MEDS: LOSARTAN 25 MG TAB PO SCH (08:33)
[2017-11-20] MEDS: CHOLECALCIFEROL 1,000 UNIT TAB PO SCH (08:33)
[2017-11-20] MEDS: PANTOPRAZOLE 40 MG TABLET PO SCH (08:33)
[2017-11-20] MEDS ORDERED: ASPIRIN 81 MG PO SCH (09:00)
[2017-11-20] MEDS: cefTRIAXone IN SWFI 1,000 MG/10 ML SYRINGE IVP SCH ×2 (10:12→21:44)
--- NOTE | 2017-11-20 11:16 | US ---
EXAMINATION TYPE: US renals and bladder DATE OF EXAM: 11/20/2017 COMPARISON: CT 2017 CLINICAL HISTORY: pyelonephritis. Pyelonephritis, history of kidney stones EXAM MEASUREMENTS: Right Kidney: 10.8 x 5.9 x 5.6 cm Left Kidney: 11.8 x 6.3 x 6.1 cm Right Kidney: 0.9cm echogenic shadowing focus inferior pole Left Kidney: multiple hypoechoic simple appearing cystic areas seen with largest in lateral mid pole measuring 2.6 x 2.6 x 2.3cm Bladder: not fully distended, appears wnl as seen Bilateral Jets seen: no IMPRESSION: 1. Left renal cysts. 2. Shadowing echogenic foci within the right kidney may be a inferior pole right renal stone without hydronephrosis.
[2017-11-20] MEDS ORDERED: MULTIVITAMINS, THERA 1 EACH TAB PO SCH (12:00)
[2017-11-20 12:33] LABS: Glucose,Whole Blood 110 mg/dL (75-99)
--- NOTE | 2017-11-20 14:26 | P.HPIM ---
History of Present Illness H&P Date: 11/20/17 Chief Complaint: Difficulty voiding, dysuria, fever and rigors This is a 67-year-old male patient of Dr. Bautista with past medical history of benign prostatic hypertrophy, CVA in 2015 and 2018, diabetes mellitus type 2, hyperlipidemia, hypertension, ulcerative colitis, history of kidney stones. Patient complains of difficulty starting urine flow, painful urination was very severe as well as fever, chills, rigors, back discomfort. He states his left for about one hour his symptoms started at that time. He is never had these symptoms before. He came into [facility] emergency center for evaluation. He was found to have a white count of 14.8, hemoglobin 12, platelet count 130, creatinine 17 and BUN 0.7. Blood sugar was 146. Initial lactic acid is 2.2 and repeat of 1.4. Troponin was negative. Urinalysis was turbid, blood moderate, nitrate negative, leukoesterase large, RBC 62, WBC greater than 182, bacteria rare. Abdominal x- ray showed minimal left basilar subsegmental atelectasis. Mildly enlarged cecum and lack of haustration within the nondilated colon. Findings could represent colitis, colonic ileus. EKG was sinus tachycardia. Patient was given a dose of ceftriaxone and 3 L of IV fluid. Patient was admitted to the [facility] floor and started on 1 dose of IV ceftriaxone in the emergency center. Temperature max has been 100.3. He subsequently underwent ultrasound of the renals and bladder that showed left renal cyst. Shadowing echogenic foci within the left kidney may represent inferior pole right renal stone without hydronephrosis.Patient now states he has no flank pain, burning with urination has resolved. He does feel weak and tired. Review of Systems All systems: negative Constitutional: Reports chills, Reports fatigue, Reports fever, Reports lethargy , Reports malaise, Reports poor appetite Eyes: denies blurred vision, denies pain Ears, nose, mouth and throat: Denies dental pain, Denies headache, Denies mouth pain, Denies sore throat Cardiovascular: Denies chest pain, Denies decreased exercise tolerance, Denies dyspnea on exertion, Denies edema, Denies leg edema, Denies lightheadedness, Denies shortness of breath, Denies syncope Respiratory: Denies cough, Denies cough with sputum, Denies dyspnea, Denies excessive sputum, Denies hemoptysis, Denies home oxygen, Denies wheezing Gastrointestinal: Denies abdominal pain, Denies diarrhea, Denies nausea, Denies vomiting Genitourinary: Reports dysuria, Reports flank pain, Reports urinary frequency, Reports urinary hesitancy, Denies urinary retention Musculoskeletal: Denies myalgias Integumentary: Denies pruritus, Denies rash, Denies wounds Neurological: Denies numbness, Denies weakness Psychiatric: Denies anxiety, Denies depression Endocrine: Denies fatigue, Denies weight change Past Medical History Past Medical History: CVA/TIA, Diabetes Mellitus, Eye Disorder, Hearing Disorder / Deafness, Hyperlipidemia, Hypertension, Prostate Disorder Additional Past Medical History / Comment(s): 05/2015 CVA and 08/2017, continues to have occasional balance issues. BLOOD IN STOOL ON/OFF., Ulcerative Colitis, hx kidney stone. BPH. hs J-pouch. History of Any Multi-Drug Resistant Organisms: None Reported Past Surgical History: Appendectomy, Bowel Resection, Hernia Repair, Joint Replacement Additional Past Surgical History / Comment(s): APPENDEX RUPTURE, HAS J pouch. Left partial knee replacement. COLONOSCOPY, bilateral cataract extraction with lens implants, mesh with hernia repair Past Anesthesia/Blood Transfusion Reactions: No Reported Reaction Past Psychological History: Depression Smoking Status: Former smoker Past Alcohol Use History: Rare Additional Past Alcohol Use History / Comment(s): SMOKED BRIEFLY, QUIT 1974. No illicit drug use. Patient lives at home with his . Past Drug Use History: None Reported - Past Family History Mother Family Medical History: Cancer, Diabetes Mellitus Additional Family Medical History / Comment(s): COLON CA Father Additional Family Medical History / Comment(s): Father is with history of coronary artery disease. Patient has 4 children that are healthy with no major medical problems. Medications and Allergies Home Medications Medication Instructions Recorded Confirmed Type Atorvastatin [Lipitor] 40 mg PO HS 02/06/17 11/19/17 History DULoxetine HCL [Cymbalta] 60 mg PO DAILY 02/06/17 11/19/17 History Fexofenadine HCl [Lu Allergy] 180 mg PO BID PRN 02/06/17 11/19/17 History Finasteride [Proscar] 5 mg PO DAILY 02/06/17 11/19/17 History Linagliptin [Tradjenta] 5 mg PO DAILY 02/06/17 11/19/17 History Losartan [Cozaar] 25 mg PO DAILY 02/06/17 11/19/17 History Metoprolol Succinate [Toprol XL] 100 mg PO QAM 02/06/17 11/19/17 History Multivit-Min/FA/Lycopen/Lutein 1 cap PO DAILY 02/06/17 11/19/17 History [Centrum Silver Men Tablet] Tamsulosin [Flomax] 0.4 mg PO HS 02/06/17 11/19/17 History Trospium Chloride [Sanctura] 20 mg PO BID 02/06/17 11/19/17 History amLODIPine [Norvasc] 10 mg PO HS 02/06/17 11/19/17 History Dicyclomine [Bentyl] 10 mg PO QID PRN 02/28/17 11/19/17 History Aspirin [Adult Low Dose Aspirin EC] 81 mg PO MOWEFR 07/20/17 11/19/17 History Diphenox-Atrop 2.5-0.025 mg 1 - 2 tab PO QID PRN 07/20/17 11/19/17 History [Lomotil] Meloxicam 15 mg PO DAILY 07/20/17 11/19/17 History Budesonide [Budesonide EC] 9 mg PO QAM 11/19/17 11/19/17 History Cholecalciferol [Vitamin D3] 5,000 unit PO DAILY 11/19/17 11/19/17 History Ferrous Sulfate [Iron (65 MG 325 mg PO HS 11/19/17 11/19/17 History Elemental)] Insulin Glargine,Hum.rec.anlog 15 unit SQ 11/19/17 11/19/17 History [Basaglar Kwikpen U-100] Allergies Allergy/AdvReac Type Severity Reaction Status Date / Time codeine Allergy Rash/Hives Verified 11/19/17 14:02 morphine Allergy Rash/Hives Verified 11/19/17 14:02 Physical Exam Vitals: Vital Signs Temp Pulse Pulse Resp BP BP BP 11/20/17 06:12 99.5 F 96 20 143/77 11/19/17 23:00 99 F 89 20 103/59 11/19/17 21:24 97.0 F L 11/19/17 17:22 99.4 F 98 16 119/66 11/19/17 16:40 100.3 F H 97 16 108/65 11/19/17 15:40 94 16 119/70 11/19/17 13:26 98.5 F 105 H 18 115/75 Pulse Ox 11/20/17 06:12 92 L 11/19/17 23:00 96 11/19/17 21:24 11/19/17 17:22 96 11/19/17 16:40 95 11/19/17 15:40 97 11/19/17 13:26 98 Intake and Output 11/19/17 11/20/17 11/20/17 22:59 06:59 14:59 Intake Total 200 100 Balance 200 100 Intake: Oral 200 100 Other: # Voids 3 4 - Constitutional General appearance: average body habitus - EENT Eyes: PERRLA, no poor dentition, normal appearance - Neck Neck: no lymphadenopathy, normal ROM, no rigidity, no stridor, no thyromegaly - Respiratory Respiratory: bilateral: CTA, negative: diminished, dullness, rales, rhonchi, wheezing, prolonged expiration, prolonged inspiration - Cardiovascular Heart sounds: normal: S1, S2 - Gastrointestinal General gastrointestinal: no absent bowel sounds, no decreased bowel sounds, no distended, no hepatomegaly, no hyperactive bowel sounds, normal bowel sounds, no organomegaly, no rigid, soft, no splenomegaly, no tenderness - Integumentary Integumentary: no ulcer - Neurologic Neurologic: CNII-XII intact - Musculoskeletal Musculoskeletal: gait normal, no generalized weakness, strength equal bilaterally - Psychiatric Psychiatric: A&O x's 3, appropriate affect, intact judgment & insight Results CBC & Chem 7: 11/19/17 14:45 11/19/17 14:45 Labs: Abnormal Lab Results - Last 24 Hours (Table) 11/19/17 11/19/17 11/19/17 Range/Units 14:45 14:45 14:45 WBC 14.8 H (3.8-10.6) k/uL RBC 4.15 L (4.30-5.90) m/uL Hgb 12.0 L (13.0-17.5) gm/dL Hct 35.6 L (39.0-53.0) % RDW 15.7 H (11.5-15.5) % Plt Count 130 L (150-450) k/uL Neutrophils # 13.7 H (1.3-7.7) k/uL Lymphocytes # 0.5 L (1.0-4.8) k/uL APTT (22.0-30.0) sec Carbon Dioxide 21 L (22-30) mmol/L Glucose 146 H (74-99) mg/dL POC Glucose (mg/dL) (75-99) mg/dL Plasma Lactic Acid Chris 2.2 H* (0.7-2.0) mmol/L Total Protein 5.9 L (6.3-8.2) g/dL Urine Protein (Negative) Urine Ketones (Negative) Urine Blood (Negative) Ur Leukocyte Esterase (Negative) Urine RBC (0-5) /hpf Urine WBC (0-5) /hpf Urine WBC Clumps (None) /hpf Urine Bacteria (None) /hpf Urine Mucus (None) /hpf 11/19/17 11/19/17 11/19/17 Range/Units 14:45 14:57 17:14 WBC (3.8-10.6) k/uL RBC (4.30-5.90) m/uL Hgb (13.0-17.5) gm/dL Hct (39.0-53.0) % RDW (11.5-15.5) % Plt Count (150-450) k/uL Neutrophils # (1.3-7.7) k/uL Lymphocytes # (1.0-4.8) k/uL APTT 20.7 L (22.0-30.0) sec Carbon Dioxide (22-30) mmol/L Glucose (74-99) mg/dL POC Glucose (mg/dL) 100 H (75-99) mg/dL Plasma Lactic Acid Chris (0.7-2.0) mmol/L Total Protein (6.3-8.2) g/dL Urine Protein 2+ H (Negative) Urine Ketones Trace H (Negative) Urine Blood Moderate H (Negative) Ur Leukocyte Esterase Large H (Negative) Urine RBC 62 H (0-5) /hpf Urine WBC >182 H (0-5) /hpf Urine WBC Clumps Few H (None) /hpf Urine Bacteria Rare H (None) /hpf Urine Mucus Many H (None) /hpf 11/19/17 11/19/17 11/20/17 Range/Units 18:15 20:53 07:29 WBC (3.8-10.6) k/uL RBC (4.30-5.90) m/uL Hgb (13.0-17.5) gm/dL Hct (39.0-53.0) % RDW (11.5-15.5) % Plt Count (150-450) k/uL Neutrophils # (1.3-7.7) k/uL Lymphocytes # (1.0-4.8) k/uL APTT (22.0-30.0) sec Carbon Dioxide (22-30) mmol/L Glucose (74-99) mg/dL POC Glucose (mg/dL) 193 H 134 H (75-99) mg/dL Plasma Lactic Acid Chris 2.1 H* (0.7-2.0) mmol/L Total Protein (6.3-8.2) g/dL Urine Protein (Negative) Urine Ketones (Negative) Urine Blood (Negative) Ur Leukocyte Esterase (Negative) Urine RBC (0-5) /hpf Urine WBC (0-5) /hpf Urine WBC Clumps (None) /hpf Urine Bacteria (None) /hpf Urine Mucus (None) /hpf Microbiology - Last 24 Hours (Table) 11/19/17 14:57 Urine Culture - Preliminary Urine,Voided Thrombosis Risk Factor Assmnt - DVT/VTE Prophylaxis DVT/VTE Prophylaxis: Pharmacologic Prophylaxis ordered - Choose All That Apply Each Factor Represents 1 point: Obesity (BMI >25) Each Risk Factor Represents 2 Points: Age 61-74 years Thrombosis Risk Factor Assessment Total Risk Factor Score: 3 Thrombosis Risk Factor Assessment Level: Moderate Risk Assessment and Plan Plan: 1. Pyelonephritis. Patient will be continued on Rocephin 1 g every 12 hours. Urine culture is in process. 2. Benign prostatic hypertrophy. Continue finasteride 5 mg daily and Flomax 0.4 mg daily. 3. Diabetes mellitus type 2. Continue Claritin on insulin 15 units at bedtime , try gentle 5 mg daily and Humalog scale before meals and at bedtime. 4. Hyperlipidemia. Continue atorvastatin daily. 5. History of ulcerative colitis. Continue Lomotil as needed and trospium 20mg twice daily. 6. Hypertension. Continue Toprol-XL 100 mg daily, losartan 25 mg daily, Norvasc 10 mg at bedtime. 7. Recurrent depression. Continue Cymbalta 60 mg daily. 8. History of CVA. Continue aspirin 81 mg daily, Lipitor 40 mg at bedtime for secondary prevention. 9. Gastric intestinal prophylaxis. Protonix. 10. DVT prophylaxis. Lovenox subcu. Patient will be admitted to the hospital for a minimum of 2 night stay. Discharge plan: Return home Impression and plan of care have been directed as dictated by the signing physician. Azucena Goode nurse practitioner acting as scribe for signing physician.
[2017-11-20 17:12] LABS: Glucose,Whole Blood 122 mg/dL (75-99)
[2017-11-20] MEDS: INSULIN ASPART 100 UNIT/ML 1 ML 10 ML VIAL SQ SCH ×2 (17:17→21:45)
[2017-11-20] MEDS: FERROUS SULFATE 325 MG TAB PO SCH (20:03)
[2017-11-20] MEDS: ATORVASTATIN 40 MG TAB PO SCH (20:03)
[2017-11-20] MEDS: amLODIPine 10 MG TAB PO SCH (20:03)
[2017-11-20] MEDS: TAMSULOSIN 0.4 MG CAP.ER.24H PO SCH (20:03)
[2017-11-20 20:41] LABS: Hemoglobin A1C 6.5 % (4.0-6.0)
[2017-11-20 21:29] LABS: Glucose,Whole Blood 153 mg/dL (75-99)
[2017-11-20] MEDS: INSULIN DETEMIR 100 UNIT/ML 10 ML VIAL SQ SCH (21:45)
[2017-11-21 01:52] VITALS: RESP 18
[2017-11-21] MEDS: ACETAMINOPHEN TAB 325 MG TAB PO PRN (03:42)
[2017-11-21 06:11] VITALS: BP 117/67; PULSE 86; TEMP 98.9
[2017-11-21 07:16] LABS: Glucose,Whole Blood 118 mg/dL (75-99)
[2017-11-21] MEDS: INSULIN ASPART 100 UNIT/ML 1 ML 10 ML VIAL SQ SCH (08:14)
[2017-11-21] MEDS: PANTOPRAZOLE 40 MG TABLET PO SCH (08:16)
[2017-11-21] MEDS: cefTRIAXone IN SWFI 1,000 MG/10 ML SYRINGE IVP SCH (08:16)
[2017-11-21] MEDS: FINASTERIDE 5 MG TAB PO SCH (08:17)
[2017-11-21] MEDS: OXYBUTYNIN XL 5 MG TAB.ER.24 PO SCH (08:17)
[2017-11-21] MEDS: DULoxetine HCL 60 MG CAPSULE.DR PO SCH (08:17)
[2017-11-21] MEDS: MELOXICAM 7.5 MG TAB PO SCH (08:17)
[2017-11-21] MEDS: LINAGLIPTIN 5 MG TABLET PO SCH (08:17)
[2017-11-21] MEDS: LOSARTAN 25 MG TAB PO SCH (08:18)
[2017-11-21] MEDS: METOPROLOL SUCCINATE (ER) 100 MG TAB.ER.24H PO SCH (08:18)
[2017-11-21] MEDS: CHOLECALCIFEROL 1,000 UNIT TAB PO SCH (08:34)
[2017-11-21] MEDS: SODIUM CHLORIDE 0.9% 1,000 ML IV SCH (08:36)
--- NOTE | 2017-11-21 09:33 | P.DS ---
Providers Date of admission: 11/19/17 16:13 Expected date of discharge: 11/21/17 Attending physician: Miguel Bautista Primary care physician: [facility] Course: This is a 67-year-old male patient of Dr. Bautista with past medical history of benign prostatic hypertrophy, CVA in 2015 and 2018, diabetes mellitus type 2, hyperlipidemia, hypertension, ulcerative colitis, history of kidney stones. Patient complains of difficulty starting urine flow, painful urination was very severe as well as fever, chills, rigors, back discomfort. He states his left for about one hour his symptoms started at that time. He is never had these symptoms before. He came into [facility] emergency center for evaluation. He was found to have a white count of 14.8, hemoglobin 12, platelet count 130, creatinine 17 and BUN 0.7. Blood sugar was 146. Initial lactic acid is 2.2 and repeat of 1.4. Troponin was negative. Urinalysis was turbid, blood moderate, nitrate negative, leukoesterase large, RBC 62, WBC greater than 182, bacteria rare. Abdominal x- ray showed minimal left basilar subsegmental atelectasis. Mildly enlarged cecum and lack of haustration within the nondilated colon. Findings could represent colitis, colonic ileus. EKG was sinus tachycardia. Patient was given a dose of ceftriaxone and 3 L of IV fluid. [facility] and started on 1 dose of IV ceftriaxone in the emergency center. Temperature max has been 100.3. He subsequently underwent ultrasound of the renals and bladder that showed left renal cyst. Shadowing echogenic foci within the left kidney may represent inferior pole right renal stone without hydronephrosis.Patient now states he has no flank pain, burning with urination has resolved. He does feel weak and tired. 11/21: Urine culture is showing gram-negative bacilli. Patient is currently symptom free. He denies any pain or burning with urination. No flank pain. He is anxious to be discharged home. Patient has received ceftriaxone with improvement of his symptoms. We'll plan to use cefuroxime until urine culture is finalized most likely will be tomorrow. Patient will be discharged home today in stable condition. Discharge diagnoses: 1. Pyelonephritis. 2. Benign prostatic hypertrophy. 3. Diabetes mellitus type 2. 4. Hyperlipidemia. 5. History of ulcerative colitis. 6. Hypertension. 7. Recurrent depression. 8. History of CVA. Discharge plan: Return home Impression and plan of care have been directed as dictated by the signing physician. Azucena Goode nurse practitioner acting as scribe for signing physician. Patient Condition at Discharge: Good Plan - Discharge Summary New Discharge Prescriptions: New Cefuroxime Axetil [Cefuroxime] 500 mg PO BID #24 tab Continue Multivit-Min/FA/Lycopen/Lutein [Centrum Silver Men Tablet] 1 cap PO DAILY Fexofenadine HCl [Lu Allergy] 180 mg PO BID PRN PRN Reason: Allergy Symptoms DULoxetine HCL [Cymbalta] 60 mg PO DAILY Trospium Chloride [Sanctura] 20 mg PO BID Tamsulosin [Flomax] 0.4 mg PO HS Finasteride [Proscar] 5 mg PO DAILY amLODIPine [Norvasc] 10 mg PO HS Metoprolol Succinate [Toprol XL] 100 mg PO QAM Losartan [Cozaar] 25 mg PO DAILY Linagliptin [Tradjenta] 5 mg PO DAILY Atorvastatin [Lipitor] 40 mg PO HS Dicyclomine [Bentyl] 10 mg PO QID PRN PRN Reason: Gi Upset Aspirin [Adult Low Dose Aspirin EC] 81 mg PO MOWEFR Meloxicam 15 mg PO DAILY Diphenox-Atrop 2.5-0.025 mg [Lomotil] 1 - 2 tab PO QID PRN PRN Reason: Diarrhea Ferrous Sulfate [Iron (65 MG Elemental)] 325 mg PO HS Cholecalciferol [Vitamin D3] 5,000 unit PO DAILY Insulin Glargine,Hum.rec.anlog [Basaglar Kwikpen U-100] 15 unit SQ HS Budesonide [Budesonide EC] 9 mg PO QAM Discharge Medication List Atorvastatin [Lipitor] 40 mg PO HS 02/06/17 [History] DULoxetine HCL [Cymbalta] 60 mg PO DAILY 02/06/17 [History] Fexofenadine HCl [Lu Allergy] 180 mg PO BID PRN 02/06/17 [History] Finasteride [Proscar] 5 mg PO DAILY 02/06/17 [History] Linagliptin [Tradjenta] 5 mg PO DAILY 02/06/17 [History] Losartan [Cozaar] 25 mg PO DAILY 02/06/17 [History] Metoprolol Succinate [Toprol XL] 100 mg PO QAM 02/06/17 [History] Multivit-Min/FA/Lycopen/Lutein [Centrum Silver Men Tablet] 1 cap PO DAILY [History] Tamsulosin [Flomax] 0.4 mg PO HS 02/06/17 [History] Trospium Chloride [Sanctura] 20 mg PO BID 02/06/17 [History] amLODIPine [Norvasc] 10 mg PO HS 02/06/17 [History] Dicyclomine [Bentyl] 10 mg PO QID PRN 02/28/17 [History] Aspirin [Adult Low Dose Aspirin EC] 81 mg PO MOWEFR 07/20/17 [History] Diphenox-Atrop 2.5-0.025 mg [Lomotil] 1 - 2 tab PO QID PRN 07/20/17 [History] Meloxicam 15 mg PO DAILY 07/20/17 [History] Budesonide [Budesonide EC] 9 mg PO QAM 11/19/17 [History] Cholecalciferol [Vitamin D3] 5,000 unit PO DAILY 11/19/17 [History] Ferrous Sulfate [Iron (65 MG Elemental)] 325 mg PO HS 11/19/17 [History] Insulin Glargine,Hum.rec.anlog [Basaglar Kwikpen U-100] 15 unit SQ HS 11/19/17 [ History] Cefuroxime Axetil [Cefuroxime] 500 mg PO BID #24 tab 11/21/17 [Rx] Follow up Appointment(s)/Referral(s): Miguel Bautista MD [Primary Care Provider] - 1 Week Discharge Disposition: HOME SELF-CARE
--- NOTE | 2017-11-30 12:56 | CDI ---
Last Revision, May 2017 Documentation Clarification Form Date: 11/30/17 From: Effie Tyson Keyanna Galindo, [employer] Hours-8:30 am & 5 pm M-F Admit Date: 11/19/2017 4:13:00 PM Patient Name: Steve Morse Visit Number: [id number] Discharge Date: 11/21/17 ATTENTION: The Clinical Documentation Specialists (CDI) and [facility] Coding Staff appreciate your assistance in clarifying documentation. Please respond to the clarification below the line at the bottom and electronically sign. The CDI & [facility] Coding staff will review the response and follow-up if needed. Please note: Queries are made part of the Legal Health Record. If you have any questions, please contact the author of this message via ITS. Dr. Lucas Cast Conflicting documentation has been found in the medical record. EDNote documents under Course: Upon reassessment noticed white count is 16 with a left shift, lactate is 2.2, urinalysis is significant with severe cystitis probably this is what caused the urosepsis or sepsis. Admitted for IV antibiotics. In your opinion what is the most clinically appropriate diagnosis for this patient? Sepsis ruled in Sepsis ruled out Other explanation of clinical findings Unable to determine (no explanation for clinical findings) Please continue to document in your progress notes and discharge summary in order to capture severity of illness and risk of mortality. Include clinical findings that support your diagnosis. sepsis ruled in ___ MTDD
== END 2017-11-21 11:05 | disposition home or self-care (01) | DRG 872 ==
LOC: EC 13:17 → 4MS4W 16:13
PROVIDERS: ADMIT Internal Medicine Geriatric Medicine; ATTEND Internal Medicine Geriatric Medicine
DX: A41.9 Sepsis, unspecified organism (principal); N12 Tubulo-interstitial nephritis, not specified as acute or chronic; K51.90 Ulcerative colitis, unspecified, without complications; F33.9 Major depressive disorder, recurrent, unspecified; N40.0 Benign prostatic hyperplasia without lower urinary tract symptoms; E78.5 Hyperlipidemia, unspecified; I10 Essential (primary) hypertension; H91.90 Unspecified hearing loss, unspecified ear; N28.1 Cyst of kidney, acquired; E11.9 Type 2 diabetes mellitus without complications; Z79.82 Long term (current) use of aspirin; Z79.4 Long term (current) use of insulin; Z79.899 Other long term (current) drug therapy; Z96.1 Presence of intraocular lens; Z86.73 Personal history of transient ischemic attack (TIA), and cerebral infarction without residual deficits; Z98.41 Cataract extraction status, right eye; Z98.42 Cataract extraction status, left eye; Z87.891 Personal history of nicotine dependence; Z87.442 Personal history of urinary calculi; Z96.659 Presence of unspecified artificial knee joint; Z90.49 Acquired absence of other specified parts of digestive tract; Z88.5 Allergy status to narcotic agent; Z80.0 Family history of malignant neoplasm of digestive organs; Z82.49 Family history of ischemic heart disease and other diseases of the circulatory system; Z83.3 Family history of diabetes mellitus
CPT/HCPCS: 36415; 74022; 76770; 80053; 81001; 83036; 83605; 84484; 85025; 85610; 85730; 87040; 87077; 87086; 87186; 87324; 93005; 96361; 96374; 99284

== ENCOUNTER → 2017-12-05 | Outpatient (CLI) | payer MEDICARE, OTHER ==
[2017-12-05 17:13] LABS: Hepatitis B Core IgM Non-Reactive (Non-Reactive); Hepatitis B Surface AB- Quant 3.5 mIU/mL; Hepatitis C IgG Antibody Non-Reactive (Non-Reactive)
== END | disposition home or self-care (01) ==
LOC: LABWHC1 10:28
PROVIDERS: ATTEND Internal Medicine
DX: K52.9 Noninfective gastroenteritis and colitis, unspecified (principal)
CPT/HCPCS: 36415; 86704; 86705; 86706; 86803; 87340

== ENCOUNTER → 2017-12-18 | Outpatient (CLI) | payer MEDICARE, OTHER ==
[~2017-12-18] MED LIST changes: +INFLIXIMAB-DYYB 400 MG in SODIUM CHLORIDE 0.9% 250 ML IV NR; -LACTATED RINGERS 1,000 ML IV SCH; +SODIUM CHLORIDE 0.9% 500 ML in EMPTY BAG 1 BAG IV PRN
[2017-12-18 08:36] VITALS: RESP 16; TEMP 98.2
[2017-12-18 10:19] VITALS: BP 137/81; PULSE 78
== END ==
LOC: PROCWHC3 08:03
PROVIDERS: ATTEND Physician Assistant
DX: K50.812 Crohn's disease of both small and large intestine with intestinal obstruction (principal)
CPT/HCPCS: 96361; 96413; 96415; 36415; Q5103

== ENCOUNTER → 2018-01-17 | Outpatient (CLI) | payer MEDICARE, OTHER ==
[2018-01-17 10:43] LABS: Basophils % (A) 1 %; Eosinophils # (A) 0.1 k/uL (0-0.7); Eosinophils % (A) 2 %; HCT 38.4 % (39.0-53.0); HGB 12.4 gm/dL (13.0-17.5); Lymphocytes # (A) 1.2 k/uL (1.0-4.8); Lymphocytes % (A) 22 %; MCH 29.2 pg (25.0-35.0); MCHC 32.4 g/dL (31.0-37.0); MCV 90.2 fL (80.0-100.0); Monocytes # (A) 0.6 k/uL (0-1.0); Monocytes % (A) 11 %; Neutrophils # (A) 3.4 k/uL (1.3-7.7); Neutrophils % (A) 61 %; Platelet Count 180 k/uL (150-450); RBC 4.26 m/uL (4.30-5.90); RDW 15.6 % (11.5-15.5); WBC 5.6 k/uL (3.8-10.6)
[2018-01-17 11:15] LABS: ALT 32 U/L (21-72); AST 24 U/L (17-59); Alkaline Phosphatase 69 U/L (38-126); Anion Gap 7 mmol/L; Blood Urea Nitrogen 13 mg/dL (9-20); C Reactive Protein 7.3 mg/L (<10.0); Calcium 9.3 mg/dL (8.4-10.2); Carbon Dioxide 28 mmol/L (22-30); Chloride 106 mmol/L (98-107); Glucose 101 mg/dL (74-99); Potassium 4.2 mmol/L (3.5-5.1); Sodium 141 mmol/L (137-145); Total Bilirubin 0.6 mg/dL (0.2-1.3); Total Protein 6.4 g/dL (6.3-8.2)
== END | disposition home or self-care (01) ==
LOC: LABWHC1 09:56
PROVIDERS: ATTEND Internal Medicine
DX: D58.2 Other hemoglobinopathies (principal); K50.812 Crohn's disease of both small and large intestine with intestinal obstruction
CPT/HCPCS: 36415; 80053; 85025; 86140

== ENCOUNTER 2018-01-30 01:37 | Inpatient (IN) | payer MEDICARE, OTHER ==
[2018-01-30] MEDS ORDERED: PANTOPRAZOLE 40 MG/10 ML VIAL IVP STA (02:17)
[2018-01-30] MEDS ORDERED: SODIUM CHLORIDE 0.9% 500 ML IV STA (02:17)
--- NOTE | 2018-01-30 02:21 | ED ---
GI Bleed HPI - General Chief complaint: GI Bleed Stated complaint: GI BLEED Time Seen by Provider: 01/30/18 02:06 Source: patient Mode of arrival: ambulatory Limitations: no limitations - History of Present Illness Initial comments: 67-year-old male patient presents to the emergency department today for evaluation of GI bleed. Patient states that for the last couple days he has been having small amounts of blood in his stool. Patient states that today he started to have large amounts of blood. Patient states he has been having diarrhea chronically over the last year. Patient states he has a history of ulcerative colitis and he's been having a flare since last January. States he is currently taking Remicade in an attempt to treat the flareup however doesn't seem to be helping. Patient is seeing a Building Operator at [facility]. Patient states he has been feeling weak and fatigued. He denies any chest pain or shortness of breath with this. He denies any dizziness. Patient states he does have some mild discomfort to his lower abdomen. Denies any nausea or vomiting. Patient denies any recent rash, fever, chills, back pain, numbness, tingling, dizziness, weakness, hematuria, dysuria, urinary urgency, urinary frequency, headache, visual changes, or any other complaints. He denies any use of anticoagulants. - Related Data Home Medications Medication Instructions Recorded Confirmed Atorvastatin [Lipitor] 40 mg PO HS 02/06/17 01/02/18 DULoxetine HCL [Cymbalta] 60 mg PO DAILY 02/06/17 01/02/18 Fexofenadine HCl [Lu Allergy] 180 mg PO BID PRN 02/06/17 01/02/18 Finasteride [Proscar] 5 mg PO DAILY 02/06/17 01/02/18 Linagliptin [Tradjenta] 5 mg PO DAILY 02/06/17 01/02/18 Losartan [Cozaar] 25 mg PO DAILY 02/06/17 01/02/18 Metoprolol Succinate [Toprol XL] 100 mg PO QA 02/06/17 01/02/18 Multivit-Min/FA/Lycopen/Lutein 1 cap PO DAILY 02/06/17 01/02/18 [Centrum Silver Men Tablet] Tamsulosin [Flomax] 0.4 mg PO HS 02/06/17 01/02/18 Trospium Chloride [Sanctura] 20 mg PO BID 02/06/17 01/02/18 Aspirin [Adult Low Dose Aspirin EC] 81 mg PO MOWEFR 07/20/17 01/02/18 Diphenox-Atrop 2.5-0.025 mg 1 - 2 tab PO QID PRN 07/20/17 01/02/18 [Lomotil] Meloxicam 15 mg PO DAILY 07/20/17 01/02/18 Budesonide [Budesonide EC] 9 mg PO QAM 11/19/17 01/02/18 Cholecalciferol [Vitamin D3] 5,000 unit PO DAILY 11/19/17 01/02/18 Insulin Glargine,Hum.rec.anlog 15 unit SQ HS 11/19/17 01/02/18 [Basaglar Kwikpen U-100] Apriso 0.375 mg PO DAILY 12/18/17 01/02/18 Ferrous Sulfate [Feosol] 325 mg PO HS 12/18/17 01/02/18 Allergies Allergy/AdvReac Type Severity Reaction Status Date / Time codeine Allergy Rash/Hives Verified 01/02/18 08:17 morphine Allergy Rash/Hives Verified 01/02/18 08:17 Review of Systems ROS Statement: Those systems with pertinent positive or pertinent negative responses have been documented in the HPI. ROS Other: All systems not noted in ROS Statement are negative. Past Medical History Past Medical History: CVA/TIA, Diabetes Mellitus, Eye Disorder, Hearing Disorder / Deafness, Hyperlipidemia, Hypertension, Prostate Disorder Additional Past Medical History / Comment(s): 05/2015 CVA and 08/2017, continues to have occasional balance issues. BLOOD IN STOOL ON/OFF., Ulcerative Colitis, hx kidney stone. BPH. hs J-pouch. Detached retina (gas bubble in eye) NO ANESTHESIA GAS History of Any Multi-Drug Resistant Organisms: None Reported Past Surgical History: Appendectomy, Bowel Resection, Hernia Repair, Joint Replacement Additional Past Surgical History / Comment(s): APPENDEX RUPTURE, HAS J pouch. Left partial knee replacement. COLONOSCOPY, bilateral cataract extraction with lens implants, mesh with hernia repair Past Anesthesia/Blood Transfusion Reactions: No Reported Reaction Past Psychological History: Depression Smoking Status: Former smoker - Past Family History Mother Family Medical History: Cancer, Diabetes Mellitus Additional Family Medical History / Comment(s): COLON CA Father Additional Family Medical History / Comment(s): Father is with history of coronary artery disease. Patient has 4 children that are healthy with no major medical problems. General Exam Limitations: no limitations General appearance: alert, in no apparent distress, other (This is a well- developed, well-nourished adult male patient in no acute distress. Vital signs upon presentation are temperature 98.3F, pulse 84, respirations 18, blood pressure 131/92, pulse ox 98% on room air.) Eye exam: Present: normal appearance, PERRL, EOMI. Absent: scleral icterus, conjunctival injection, periorbital swelling ENT exam: Present: normal exam, normal oropharynx, mucous membranes moist Respiratory exam: Present: normal lung sounds bilaterally. Absent: respiratory distress, wheezes, rales, rhonchi, stridor Cardiovascular Exam: Present: regular rate, normal rhythm, normal heart sounds. Absent: systolic murmur, diastolic murmur, rubs, gallop, clicks GI/Abdominal exam: Present: soft, normal bowel sounds. Absent: distended, tenderness, guarding, rebound, rigid Rectal exam: Present: heme (+) stool, bloody stool Neurological exam: Present: alert, oriented X3, CN II-XII intact Psychiatric exam: Present: normal affect, normal mood Skin exam: Present: warm, dry, intact, normal color. Absent: rash Course Vital Signs 01/30/18 01/30/18 01/30/18 01:56 02:51 04:02 Temperature 98.3 F Pulse Rate 84 75 Respiratory 18 16 16 Rate Blood Pressure 131/92 141/76 O2 Sat by Pulse 98 96 Oximetry Medical Decision Making - Medical Decision Making 67-year-old male patient with past medical history significant for ulcerative colitis presents the emergency department today for evaluation of GI bleeding. Patient states that he had a large amount of maroon colored diarrhea tonight. Physical examination was relatively unremarkable, abdomen soft and nontender. Stool was positive for blood. Labs reviewed and hemoglobin was 11.6. Patient is hemodynamically stable at this time. Patient will be admitted to the hospital for further evaluation. His GI specialist is at [facility] however patient agrees to be admitted here in to see Dr. Escoto who he has seen in the past. Patient be given protonix. Patient is due for Remicade dosing tomorrow. - Lab Data Result diagrams: 01/30/18 02:40 01/30/18 02:40 Lab Results 01/30/18 01/30/18 01/30/18 Range/Units 02:40 02:40 02:40 WBC 8.5 (3.8-10.6) k/uL RBC 4.05 L (4.30-5.90) m/uL Hgb 11.6 L (13.0-17.5) gm/dL Hct 36.9 L (39.0-53.0) % MCV 91.1 (80.0-100.0) fL MCH 28.6 (25.0-35.0) pg MCHC 31.4 (31.0-37.0) g/dL RDW 15.1 (11.5-15.5) % Plt Count 187 (150-450) k/uL Neutrophils % 76 % Lymphocytes % 12 % Monocytes % 9 % Eosinophils % 1 % Basophils % 0 % Neutrophils # 6.4 (1.3-7.7) k/uL Lymphocytes # 1.0 (1.0-4.8) k/uL Monocytes # 0.7 (0-1.0) k/uL Eosinophils # 0.1 (0-0.7) k/uL Basophils # 0.0 (0-0.2) k/uL PT (9.0-12.0) sec INR (<1.2) APTT (22.0-30.0) sec Sodium 143 (137-145) mmol/L Potassium 4.1 (3.5-5.1) mmol/L Chloride 111 H (98-107) mmol/L Carbon Dioxide 24 (22-30) mmol/L Anion Gap 8 mmol/L BUN 20 (9-20) mg/dL Creatinine 0.79 (0.66-1.25) mg/dL Est GFR (CKD-EPI)AfAm >90 (>60 ml/min/1.73 sqM) Est GFR (CKD-EPI)NonAf >90 (>60 ml/min/1.73 sqM) Glucose 101 H (74-99) mg/dL Calcium 9.3 (8.4-10.2) mg/dL Total Bilirubin 0.5 (0.2-1.3) mg/dL AST 24 (17-59) U/L ALT 30 (21-72) U/L Alkaline Phosphatase 64 (38-126) U/L Total Creatine Kinase 34 L (55-170) U/L CK-MB (CK-2) 0.5 (0.0-2.4) ng/mL CK-MB (CK-2) Rel Index 1.5 Troponin I <0.012 (0.000-0.034) ng/mL Total Protein 6.5 (6.3-8.2) g/dL Albumin 3.8 (3.5-5.0) g/dL Stool Occult Blood (Negative) Blood Type Blood Type Recheck Antibody Screen Spec Expiration Date 01/30/18 01/30/18 01/30/18 Range/Units 02:40 02:40 02:40 WBC (3.8-10.6) k/uL RBC (4.30-5.90) m/uL Hgb (13.0-17.5) gm/dL Hct (39.0-53.0) % MCV (80.0-100.0) fL MCH (25.0-35.0) pg MCHC (31.0-37.0) g/dL RDW (11.5-15.5) % Plt Count (150-450) k/uL Neutrophils % % Lymphocytes % % Monocytes % % Eosinophils % % Basophils % % Neutrophils # (1.3-7.7) k/uL Lymphocytes # (1.0-4.8) k/uL Monocytes # (0-1.0) k/uL Eosinophils # (0-0.7) k/uL Basophils # (0-0.2) k/uL PT 9.7 (9.0-12.0) sec INR 1.0 (<1.2) APTT 22.2 (22.0-30.0) sec Sodium (137-145) mmol/L Potassium (3.5-5.1) mmol/L Chloride (98-107) mmol/L Carbon Dioxide (22-30) mmol/L Anion Gap mmol/L BUN (9-20) mg/dL Creatinine (0.66-1.25) mg/dL Est GFR (CKD-EPI)AfAm (>60 ml/min/1.73 sqM) Est GFR (CKD-EPI)NonAf (>60 ml/min/1.73 sqM) Glucose (74-99) mg/dL Calcium (8.4-10.2) mg/dL Total Bilirubin (0.2-1.3) mg/dL AST (17-59) U/L ALT (21-72) U/L Alkaline Phosphatase (38-126) U/L Total Creatine Kinase (55-170) U/L CK-MB (CK-2) (0.0-2.4) ng/mL CK-MB (CK-2) Rel Index Troponin I (0.000-0.034) ng/mL Total Protein (6.3-8.2) g/dL Albumin (3.5-5.0) g/dL Stool Occult Blood Positive (Negative) Blood Type O Positive Blood Type Recheck CABO Indicated Antibody Screen NEGATIVE Spec Expiration Date 02/02/2018 5725 - EKG Data -: EKG Interpreted by Mo EKG Comments: EKG obtained at 02 50 shows sinus rhythm with first-degree AV block. The jugular to 77, W[place] interval 232, QRS duration 88, QT 366, QTC 414. No evidence of ST elevation or depression. Disposition Clinical Impression: GI bleed, Ulcerative colitis Disposition: ADMITTED IP TO THIS [facility] Condition: Serious Referrals: Miguel Bautista MD [Primary Care Provider] - 1-2 days Decision to Admit Reason: Admit from EC Decision Date: 01/30/18 Decision Time: 03:52
[2018-01-30 02:50] LABS: Basophils % (A) 0 %; Eosinophils # (A) 0.1 k/uL (0-0.7); Eosinophils % (A) 1 %; HCT 36.9 % (39.0-53.0); HGB 11.6 gm/dL (13.0-17.5); Lymphocytes % (A) 12 %; MCH 28.6 pg (25.0-35.0); MCHC 31.4 g/dL (31.0-37.0); MCV 91.1 fL (80.0-100.0); Monocytes # (A) 0.7 k/uL (0-1.0); Monocytes % (A) 9 %; Neutrophils # (A) 6.4 k/uL (1.3-7.7); Neutrophils % (A) 76 %; Platelet Count 187 k/uL (150-450); RBC 4.05 m/uL (4.30-5.90); RDW 15.1 % (11.5-15.5); WBC 8.5 k/uL (3.8-10.6)
[2018-01-30 02:58] LABS: ALT 30 U/L (21-72); AST 24 U/L (17-59); Albumin 3.8 g/dL (3.5-5.0); Alkaline Phosphatase 64 U/L (38-126); Anion Gap 8 mmol/L; Blood Urea Nitrogen 20 mg/dL (9-20); Calcium 9.3 mg/dL (8.4-10.2); Carbon Dioxide 24 mmol/L (22-30); Chloride 111 mmol/L (98-107); Glucose 101 mg/dL (74-99); Potassium 4.1 mmol/L (3.5-5.1); Sodium 143 mmol/L (137-145); Total Bilirubin 0.5 mg/dL (0.2-1.3); Total Protein 6.5 g/dL (6.3-8.2)
[2018-01-30 03:05] LABS: Partial Thromboplastin Time 22.2 sec (22.0-30.0); Prothrombin Time 9.7 sec (9.0-12.0)
[2018-01-30 03:10] LABS: Creatine Kinase 34 U/L (55-170)
[2018-01-30 03:23] LABS: Creatine Kinase MB 0.5 ng/mL (0.0-2.4); Troponin I <0.012 ng/mL (0.000-0.034)
[2018-01-30] MEDS ORDERED: NALOXONE 0.4 MG/ML 1 ML VIAL IV PRN (03:53)
[2018-01-30] MEDS: SODIUM CHLORIDE 0.9% 1,000 ML IV SCH (04:04)
[2018-01-30 07:04] LABS: Glucose,Whole Blood 112 mg/dL (75-99)
[2018-01-30] MEDS: PANTOPRAZOLE 40 MG/10 ML VIAL IVP SCH (09:01)
--- NOTE | 2018-01-30 09:51 | P.CONS ---
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 Bleeding is painless started yesterday past more than 10 blood tinged bowel movements describes them reddish orange in color. No fever or chills. Denies hematemesis or melena. Past 4-5-like blood tinged bowel movements through the night. Hospitalized at [facility]'s past spring followed by Dr. Faria with suspected obstruction and pouchitis colonoscopy was planned however not completed. Patient states there is concern he may have Crohn's. He has been maintained on mesalamine, Endocort and Remicade for several weeks has not seen improvement in his bowel movements normally averages 6-10 nonbloody bowel movements a day. Colonoscopy July [address] Escoto; 2-3 similar polyp in the distal pouch status post polypectomy with mild erythema friability noted at anastomosis at 15 cm from the anal verge status post APC. Admission hemoglobin 11.6 previously 12.4 2 weeks ago. White count 8.5. BUN 20 creatinine 0.7. INR 1.0. Stool occult blood positive. Review of Systems Constitutional: Denies fever, chills, sweats, weight gain, progressive weight loss last several months stabilized over the last few months.. HEENT: Negative for migraines, blurred vision or loss, earaches, drainage, tinnitus, oral mucosal lesions, dysphagia, or odynophagia. Cardiac: Negative for chest pain, arrhythmias, or palpitation. Respiratory: Negative for shortness of breath, hemoptysis, cough, or sputum production. Gastrointestinal: See HPI for pertinent findings. Genitourinary: Negative for hematuria, urgency, frequency, polyuria, dysuria, or penile discharge. Musculoskeletal: Negative for muscle aches, swelling, arthritis, and arthralgias. Neurologic: Negative for stroke or TIA. Endocrine: Negative for thyroid problems. Skin: Negative for rash or itching. Psychiatric: Negative history for depression and anxiety Past Medical History Past Medical History: CVA/TIA, Diabetes Mellitus, Eye Disorder, Hearing Disorder / Deafness, Hyperlipidemia, Hypertension, Prostate Disorder Additional Past Medical History / Comment(s): Ulcerative colitis with "flare" and has had chronic diarrhea since January 2017 (pt receiving remicade and due either today or tomorrow), pt follows with GE at [facility], bowel obstruction with surgery/Jpouch 30 yrs ago, 05/2015 and 08/2017 CVAs with balance issues, pyelonephritis, BPH, IDDM type II, nephrolithiasis (passed stones on his own), L eye detached retina with surgery and now has a gas bubble-visual disturbance, [place] L ear, sinus problems. History of Any Multi-Drug Resistant Organisms: None Reported Past Surgical History: Appendectomy, Bowel Resection, Hernia Repair, Joint Replacement Additional Past Surgical History / Comment(s): Bowel resection with J pouch, colonoscopies, ruptured appendix/surgery, abdominal hernia with mesh, L partial knee replacement, bilateral cataract removals with lens implants, L eye surgery for detached retina and now has gas bubble in eye. Past Anesthesia/Blood Transfusion Reactions: No Reported Reaction Additional Past Anesthesia/Blood Transfusion Reaction / Comm: PATIENT HAD SURGERY FOR LEFT EYE DETACHED RETINA AND DEVELOPED GAS BUBBLE IN L EYE. HE WAS INSTRUCTED TO NOT RECEIVE NITROUS OXIDE OR RIDE IN A PLANE UNTIL GAS BUBBLE IS GONE. Smoking Status: Former smoker - Past Family History Mother Family Medical History: Cancer, Diabetes Mellitus Additional Family Medical History / Comment(s): [place] Father Additional Family Medical History / Comment(s): Father is with history of coronary artery disease. Patient has 4 children that are healthy with no major medical problems. Brother(s) Additional Family Medical History / Comment(s): Patient has 4 brothers. Two at the age of 44 from coronary artery disease with history of tobacco use and alcohol dependence. One from aneurysm in the chest. Medications and Allergies Home Medications Medication Instructions Recorded Confirmed Type Atorvastatin [Lipitor] 40 mg PO HS 02/06/17 02/01/18 History DULoxetine HCL [Cymbalta] 60 mg PO DAILY 02/06/17 02/01/18 History Finasteride [Proscar] 5 mg PO DAILY 02/06/17 02/01/18 History Linagliptin [Tradjenta] 5 mg PO DAILY 02/06/17 02/01/18 History Losartan [Cozaar] 50 mg PO DAILY 02/06/17 02/01/18 History Metoprolol Succinate [Toprol XL] 100 mg PO DAILY 02/06/17 02/01/18 History Multivit-Min/FA/Lycopen/Lutein 1 cap PO DAILY 02/06/17 02/01/18 History [Centrum Silver Men Tablet] Tamsulosin [Flomax] 0.4 mg PO HS 02/06/17 02/01/18 History Trospium Chloride [Sanctura] 20 mg PO BID 02/06/17 02/01/18 History Diphenox-Atrop 2.5-0.025 mg 1 tab PO BID 07/20/17 02/01/18 History [Lomotil] Budesonide [Budesonide EC] 9 mg PO DAILY 11/19/17 02/01/18 History Cholecalciferol [Vitamin D3] 5,000 unit PO DAILY 11/19/17 02/01/18 History Insulin Glargine,Hum.rec.anlog 32 unit SQ HS 11/19/17 02/01/18 History [Basaglar Kwikpen U-100] Apriso 0.375 mg PO DAILY 12/18/17 02/01/18 History Ferrous Sulfate [Iron (65 MG 325 mg PO HS 12/18/17 02/01/18 History Elemental)] Calcium Polycarbophil [Fibercon] 625 mg PO DAILY 01/30/18 02/01/18 History Fexofenadine HCl [Lu Allergy] 60 mg PO BID PRN 01/30/18 02/01/18 History Menthol/Zinc Oxide [Calmoseptine 1 gm RECTAL DAILY PRN 01/30/18 02/01/18 History Ointment] Mesalamine [Asacol Hd] 800 mg PO DAILY 01/30/18 02/01/18 History Omeprazole 20 mg PO DAILY 01/30/18 02/01/18 History Vsl #3 112.5 1 cap PO DAILY 01/30/18 02/01/18 History amLODIPine [Norvasc] 5 mg PO DAILY 01/30/18 02/01/18 History Allergies Allergy/AdvReac Type Severity Reaction Status Date / Time codeine Allergy Rash/Hives Verified 02/01/18 10:29 morphine Allergy Rash/Hives Verified 02/01/18 10:29 Physical Exam Vitals: Vital Signs Temp Pulse Pulse Resp BP BP Pulse Ox 01/30/18 09:22 98.5 F 94 16 134/84 97 01/30/18 04:02 75 16 141/76 96 01/30/18 02:51 16 01/30/18 01:56 98.3 F 84 18 131/92 98 Intake and Output 01/29/18 01/30/18 01/30/18 22:59 06:59 14:59 Other: Weight 83.007 kg General appearance: The patient is alert, oriented, in no acute distress. HET: Head is normocephalic and atraumatic. Pupils are equal and reactive. Oropharynx is clear without lesions. Neck: Supple without lymphadenopathy. Trachea midline. Heart: S1 S2. Regular rate and rhythm. Lungs: No crackles or wheezes are heard. Abdomen: Soft, nontender, nondistended with bowel sounds. No peritoneal signs. No palpable organomegaly or masses. Extremities: Normal skin color and turgor. No cyanosis, rash, ulceration, clubbing, or edema. Radial and pedal pulses are 2/4 bilaterally. Neurological: No focal deficits. Strength and sensation are grossly intact. Results CBC & Chem 7: 01/31/18 01:07 01/31/18 01:07 Labs: Abnormal Lab Results - Last 24 Hours (Table) 01/30/18 01/30/18 01/30/18 Range/Units 02:40 02:40 02:40 RBC 4.05 L (4.30-5.90) m/uL Hgb 11.6 L (13.0-17.5) gm/dL Hct 36.9 L (39.0-53.0) % Chloride 111 H (98-107) mmol/L Glucose 101 H (74-99) mg/dL POC Glucose (mg/dL) (75-99) mg/dL Total Creatine Kinase 34 L (55-170) U/L 01/30/18 Range/Units 07:02 RBC (4.30-5.90) m/uL Hgb (13.0-17.5) gm/dL Hct (39.0-53.0) % Chloride (98-107) mmol/L Glucose (74-99) mg/dL POC Glucose (mg/dL) 112 H (75-99) mg/dL Total Creatine Kinase (55-170) U/L Assessment and Plan (1) GI bleed Narrative/Plan: 67-year-old gentleman with a long-standing history of ulcerative colitis subsequent total proctocolectomy ileal pouch anal anastamosis maintained on mesalamine Entocort and Remicade presents with painless rectal bleeding 1 day. Presently being followed in the outpatient setting at [facility]. Etiology of bleeding possible exacerbation of inflammatory bowel disease possible pouchitis possible bleeding from anastomosis previously seen in July 2017 per colonoscopy requiring APC. Status: Acute Code(s): K92.2 - GASTROINTESTINAL HEMORRHAGE, UNSPECIFIED SNOMED Code(s): 57722160 (2) Anemia Narrative/Plan: Component of acute blood loss Status: Acute Code(s): D64.9 - ANEMIA, UNSPECIFIED SNOMED Code(s): 677561033 (3) Ulcerative colitis Status: Chronic Code(s): K51.90 - ULCERATIVE COLITIS, UNSPECIFIED, WITHOUT COMPLICATIONS SNOMED Code(s): 36412353 Plan: 1. Patient has verbalized he wants to continue his Remicade on schedule and is open to discharge if agreeable with medicine and GI service. 2. From a GI standpoint agreeable for discharge if hemoglobin remains stable; abdomen is benign nontender. CBC monitoring in the outpatient setting. Reschedule Remicade in the next 24-48 hours. Continue with Endocort on discharge as it is not formulary inpatient. Mesalamine/Asacol as previously advised. Patient may benefit from topical therapy such as Rowasa enema or Canasa suppository daily; will discuss with him and his . Will follow with you. 3. General surgical consult. 4. Clear liquids. Thank you for this kind referral and the opportunity to participate in the care of your patient. This consultation was discussed with Dr. Lopez. The impression and plan of care have been directed as dictated. <Sergio Lopez - Last Filed: 02/02/18 10:25> Results CBC & Chem 7: 01/31/18 07:03 01/31/18 01:07 Assessment and Plan Plan: The patient has been seen and evaluated, and the plan of care discussed. I agree with the above recommendations and assessment and plan.
[2018-01-30 11:52] LABS: HCT 32.9 % (39.0-53.0); HGB 10.7 gm/dL (13.0-17.5); MCHC 32.4 g/dL (31.0-37.0); MCV 92.4 fL (80.0-100.0); Mean Platelet Volume 8.7; Platelet Count 158 k/uL (150-450); RBC 3.56 m/uL (4.30-5.90); RDW 14.9 % (11.5-15.5)
[2018-01-30 12:23] LABS: Glucose,Whole Blood 93 mg/dL (75-99)
[2018-01-30] MEDS: INSULIN ASPART 100 UNIT/ML 1 ML 10 ML VIAL SQ SCH ×3 (12:43→21:42)
--- NOTE | 2018-01-30 13:32 | P.HPIM ---
History of Present Illness H&P Date: 01/30/18 Chief Complaint: Rectal bleeding This is a 67-year-old male patient of Dr. Bautista with past medical history of benign prostatic hypertrophy, CVA in 2015 and TIA in 2018, diabetes mellitus type 2, hyperlipidemia, hypertension, ulcerative colitis, history of kidney stones. 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 Webb as well as [facility]. He was recently started on Remicade and has completed 2 doses which are given every 4 weeks. He is due for his next dose tomorrow. They have not noticed any significant improvement. His diarrhea is 15-20 times per day and he is incontinent 4-5 times per day and it significantly impacting his lifestyle. On they noticed bleeding in his stool just a little bit at that time and it worsened last evening and he came into [facility] emergency center for evaluation. He was found to have hemoglobin 11.6 , platelet count 187, creatinine 20 and BUN 0.79. Blood sugar was 101. Troponin was negative. Occult blood positive. Patient was started on IV fluids and [facility] with [facility] for GI. GI recommends discharge of the patient in order to receive Remicade infusion tomorrow. Patient and his are in agreement. Repeat hemoglobin this afternoon is 10.7. Plan to recheck lab work in the morning and discharge in time for Remicade infusion. Review of Systems All systems: negative Constitutional: Reports fatigue, Reports poor appetite, Reports weakness, Denies chills, Denies fever Eyes: denies blurred vision, denies pain Ears, nose, mouth and throat: Denies headache, Denies sore throat, Denies vertigo Cardiovascular: Denies chest pain, Denies shortness of breath Respiratory: Denies cough Gastrointestinal: Reports diarrhea, Reports loss of appetite, Reports melena, Denies abdominal pain, Denies nausea, Denies vomiting Musculoskeletal: Denies myalgias Integumentary: Denies pruritus, Denies rash Neurological: Denies numbness, Denies weakness Psychiatric: Denies anxiety, Denies depression Endocrine: Denies fatigue, Denies weight change Past Medical History Past Medical History: CVA/TIA, Diabetes Mellitus, Eye Disorder, Hearing Disorder / Deafness, Hyperlipidemia, Hypertension, Prostate Disorder Additional Past Medical History / Comment(s): Ulcerative colitis with "flare" and has had chronic diarrhea since January 2017 (pt receiving remicade and due either today or tomorrow), [facility] bowel obstruction with surgery/Jpouch 30 yrs ago, 05/2015 CVA and 08/2017 TIA with balance issues, pyelonephritis, BPH, IDDM type II, nephrolithiasis (passed stones on his own), L eye detached retina with surgery and now has a gas bubble-visual disturbance, [place] L ear, sinus problems. History of Any Multi-Drug Resistant Organisms: None Reported Past Surgical History: Appendectomy, Bowel Resection, Hernia Repair, Joint Replacement Additional Past Surgical History / Comment(s): Bowel resection with J pouch, colonoscopies, ruptured appendix/surgery, abdominal hernia with mesh, L partial knee replacement, bilateral cataract removals with lens implants, L eye surgery for detached retina and now has gas bubble in eye. Past Anesthesia/Blood Transfusion Reactions: No Reported Reaction Additional Past Anesthesia/Blood Transfusion Reaction / Comment(s): PATIENT HAD SURGERY FOR LEFT EYE DETACHED RETINA AND DEVELOPED GAS BUBBLE IN L EYE. HE WAS INSTRUCTED TO NOT RECEIVE NITROUS OXIDE OR RIDE IN A PLANE UNTIL GAS BUBBLE IS GONE. Smoking Status: Former smoker Additional Past Alcohol Use History / Comment(s): Patient was a smoker greater than 1 pack per day for only 3 years and quit in 1974. No illicit drug use. Patient lives at home with his . - Past Family History Mother Family Medical History: Cancer, Diabetes Mellitus Additional Family Medical History / Comment(s): Mother at age 84 from [place] Father Additional Family Medical History / Comment(s): Father is at age 67 from myocardial infarction. Patient has 4 children, 3 girls and one boy, healthy with no major medical problems. Brother(s) Additional Family Medical History / Comment(s): Patient has 4 brothers. Two at the age of 44 from coronary artery disease with history of tobacco use and alcohol dependence. One from aneurysm in the chest. Medications and Allergies Home Medications Medication Instructions Recorded Confirmed Type Atorvastatin [Lipitor] 40 mg PO HS 02/06/17 01/30/18 History DULoxetine HCL [Cymbalta] 60 mg PO DAILY 02/06/17 01/30/18 History Finasteride [Proscar] 5 mg PO DAILY 02/06/17 01/30/18 History Linagliptin [Tradjenta] 5 mg PO DAILY 02/06/17 01/30/18 History Losartan [Cozaar] 50 mg PO DAILY 02/06/17 01/30/18 History Metoprolol Succinate [Toprol XL] 100 mg PO DAILY 02/06/17 01/30/18 History Multivit-Min/FA/Lycopen/Lutein 1 cap PO DAILY 02/06/17 01/30/18 History [Centrum Silver Men Tablet] Tamsulosin [Flomax] 0.4 mg PO HS 02/06/17 01/30/18 History Trospium Chloride [Sanctura] 20 mg PO BID 02/06/17 01/30/18 History Aspirin [Adult Low Dose Aspirin EC] 81 mg PO DAILY 07/20/17 01/30/18 History Diphenox-Atrop 2.5-0.025 mg 1 tab PO BID 07/20/17 01/30/18 History [Lomotil] Meloxicam 15 mg PO DAILY 07/20/17 01/30/18 History Budesonide [Budesonide EC] 9 mg PO DAILY 11/19/17 01/30/18 History Cholecalciferol [Vitamin D3] 5,000 unit PO DAILY 11/19/17 01/30/18 History Insulin Glargine,Hum.rec.anlog 32 unit SQ HS 11/19/17 01/30/18 History [Basaglar Kwikpen U-100] Apriso 0.375 mg PO DAILY 12/18/17 01/30/18 History Ferrous Sulfate [Feosol] 325 mg PO HS 12/18/17 01/02/18 History Calcium Polycarbophil [Fibercon] 625 mg PO DAILY 01/30/18 01/30/18 History Fexofenadine HCl [Lu Allergy] 60 mg PO BID PRN 01/30/18 01/30/18 History Menthol/Zinc Oxide [Calmoseptine 1 gm RECTAL DAILY PRN 01/30/18 01/30/18 History Ointment] Mesalamine [Asacol Hd] 800 mg PO DAILY 01/30/18 01/30/18 History Omeprazole 20 mg PO DAILY 01/30/18 01/30/18 History Vsl #3 112.5 1 cap PO DAILY 01/30/18 01/30/18 History amLODIPine [Norvasc] 5 mg PO DAILY 01/30/18 01/30/18 History Allergies Allergy/AdvReac Type Severity Reaction Status Date / Time codeine Allergy Rash/Hives Verified 01/30/18 08:55 morphine Allergy Rash/Hives Verified 01/30/18 08:55 Physical Exam Vitals: Vital Signs Temp Pulse Pulse Resp BP BP Pulse Ox 01/30/18 09:22 98.5 F 94 16 134/84 97 01/30/18 04:02 75 16 141/76 96 01/30/18 02:51 16 01/30/18 01:56 98.3 F 84 18 131/92 98 Intake and Output 01/29/18 01/30/18 01/30/18 22:59 06:59 14:59 Other: Weight 83.007 kg General appearance: average body habitus - EENT Eyes: PERRLA, no poor dentition, normal appearance - Neck Neck: no lymphadenopathy, normal ROM, no rigidity, no stridor, no thyromegaly - Respiratory Respiratory: bilateral: CTA, negative: diminished, dullness, rales, rhonchi, wheezing, prolonged expiration, prolonged inspiration - Cardiovascular Heart sounds: normal: S1, S2 - Gastrointestinal General gastrointestinal: no absent bowel sounds, no decreased bowel sounds, no distended, no hepatomegaly, no hyperactive bowel sounds, normal bowel sounds, no organomegaly, no rigid, soft, no splenomegaly, no tenderness - Integumentary Integumentary: no ulcer - Neurologic Neurologic: CNII-XII intact - Musculoskeletal Musculoskeletal: gait normal, no generalized weakness, strength equal bilaterally - Psychiatric Psychiatric: A&O x's 3, appropriate affect, intact judgment & insight Results CBC & Chem 7: 01/30/18 11:41 01/30/18 02:40 Labs: Abnormal Lab Results - Last 24 Hours (Table) 01/30/18 01/30/18 01/30/18 Range/Units 02:40 02:40 02:40 RBC 4.05 L (4.30-5.90) m/uL Hgb 11.6 L (13.0-17.5) gm/dL Hct 36.9 L (39.0-53.0) % Chloride 111 H (98-107) mmol/L Glucose 101 H (74-99) mg/dL POC Glucose (mg/dL) (75-99) mg/dL Total Creatine Kinase 34 L (55-170) U/L 01/30/18 Range/Units 07:02 RBC (4.30-5.90) m/uL Hgb (13.0-17.5) gm/dL Hct (39.0-53.0) % Chloride (98-107) mmol/L Glucose (74-99) mg/dL POC Glucose (mg/dL) 112 H (75-99) mg/dL Total Creatine Kinase (55-170) U/L Thrombosis Risk Factor Assmnt - DVT/VTE Prophylaxis DVT/VTE Prophylaxis: Mechanical Prophylaxis ordered - Choose All That Apply Any of the Below Risk Factors Present?: Yes Each Factor Represents 1 point: Hx of IBD Other Risk Factors: Yes Each Risk Factor Represents 2 Points: Age 61-74 years Other congenital or acquired thrombophilia - If yes, enter type in comment: No Thrombosis Risk Factor Assessment Total Risk Factor Score: 3 Thrombosis Risk Factor Assessment Level: Moderate Risk Assessment and Plan Plan: 1. Acute GI bleed with stable hemoglobin. We will plan to recheck hemoglobin in the morning. Continue IV fluids, Protonix, GI consult appreciated. Aspirin and meloxicam on hold 2. Ulcerative colitis under the care of Dr. Webb and [facility]. Patient will be discharged tomorrow morning to receive his Remicade as scheduled. 3. Benign prostatic hypertrophy. Continue finasteride 5 mg daily and Flomax 0.4 mg daily. 4. Diabetes mellitus type 2. Hold insulin for now and continue Humalog scale before meals and at bedtime. 5. Hyperlipidemia. Continue atorvastatin daily. 6. Hypertension. Continue Toprol-XL 100 mg daily, losartan 50 mg daily, Norvasc 5 mg daily. 7. Recurrent depression. Continue Cymbalta 60 mg daily. 8. History of CVA and TIA. Hold aspirin. Continue Lipitor 40 mg at bedtime for secondary prevention. 9. Gastric intestinal prophylaxis. Protonix. 10. DVT prophylaxis. Lovenox subcu. Patient will be admitted to the hospital for a minimum of 2 night stay. Discharge plan: Return home in the morning Impression and plan of care have been directed as dictated by the signing physician. Azucena Goode nurse practitioner acting as scribe for signing physician.
[2018-01-30 16:52] LABS: Glucose,Whole Blood 102 mg/dL (75-99)
[2018-01-30] MEDS ORDERED: BALSALAZIDE DISODIUM 750 MG CAPSULE PO SCH (17:30)
[2018-01-30 20:12] LABS: Glucose,Whole Blood 188 mg/dL (75-99)
[2018-01-30] MEDS ORDERED: ATORVASTATIN 40 MG TAB PO SCH (21:00)
[2018-01-30] MEDS ORDERED: FERROUS SULFATE 325 MG TAB PO SCH (21:00)
[2018-01-30] MEDS ORDERED: TAMSULOSIN 0.4 MG CAP.ER.24H PO SCH (21:00)
[2018-01-30] MEDS: DIPHENOX-ATROP 2.5-0.025 MG 1 EACH TAB PO SCH (21:41)
[2018-01-30] MEDS: TROSPIUM CHLORIDE 20 MG TABLET PO SCH (22:37)
[2018-01-31 01:22] LABS: Glucose,Whole Blood 83 mg/dL (75-99)
[2018-01-31 01:51] LABS: Glucose,Whole Blood 136 mg/dL (75-99)
[2018-01-31] MEDS: TROSPIUM CHLORIDE 20 MG TABLET PO SCH ×2 (02:02→09:18)
[2018-01-31] MEDS: SODIUM CHLORIDE 0.9% 1,000 ML IV SCH (02:03)
[2018-01-31 02:15] LABS: HCT 36.6 % (39.0-53.0); HGB 11.8 gm/dL (13.0-17.5); MCH 29.6 pg (25.0-35.0); MCHC 32.3 g/dL (31.0-37.0); MCV 91.8 fL (80.0-100.0); Mean Platelet Volume 8.4; Platelet Count 171 k/uL (150-450); RBC 3.99 m/uL (4.30-5.90); RDW 14.9 % (11.5-15.5); WBC 5.7 k/uL (3.8-10.6)
[2018-01-31 02:38] LABS: Monocytes # (M) 0.57 k/uL (0-1.0); Neutrophils # (M) 3.93 k/uL (1.3-7.7); Neutrophils % (M) 69 %; Nucleated Red Blood Cells 0 /100 WBC (0-0); Total Cells Counted 100
[2018-01-31 02:39] LABS: Large Platelets Present
[2018-01-31 02:41] LABS: Anisocytosis (M) Present
[2018-01-31 06:47] LABS: Glucose,Whole Blood 101 mg/dL (75-99)
[2018-01-31 07:21] VITALS: BP 123/81; PULSE 97; RESP 16; TEMP 98.5
[2018-01-31 07:24] LABS: Basophils % (A) 1 %; Eosinophils # (A) 0.1 k/uL (0-0.7); Eosinophils % (A) 2 %; HCT 35.4 % (39.0-53.0); HGB 11.5 gm/dL (13.0-17.5); Lymphocytes % (A) 21 %; MCH 29.4 pg (25.0-35.0); MCHC 32.5 g/dL (31.0-37.0); MCV 90.6 fL (80.0-100.0); Mean Platelet Volume 8.7; Monocytes # (A) 0.4 k/uL (0-1.0); Monocytes % (A) 9 %; Neutrophils # (A) 2.8 k/uL (1.3-7.7); Neutrophils % (A) 63 %; Platelet Count 168 k/uL (150-450); RBC 3.91 m/uL (4.30-5.90); RDW 14.8 % (11.5-15.5); WBC 4.5 k/uL (3.8-10.6)
[2018-01-31] MEDS ORDERED: BALSALAZIDE DISODIUM 750 MG CAPSULE PO SCH (07:30)
--- NOTE | 2018-01-31 08:49 | P.PN ---
<Ashley Rosas - Last Filed: 01/31/18 08:46> Subjective Progress Note Date: 01/31/18 Principal diagnosis: GI bleed Bleeding subsided. Denies abdominal pain. Afebrile. Hemoglobin stable 11.5. Objective - Vital Signs Vital signs: Vital Signs Temp 98.5 F 01/31/18 07:20 Pulse 97 01/31/18 07:20 Resp 16 01/31/18 07:20 BP 123/81 01/31/18 07:20 Pulse Ox 97 01/31/18 07:20 Intake & Output 01/30/18 01/31/18 01/31/18 18:59 06:59 18:59 Intake Total 240 1560 Balance 240 1560 Intake: Intake, IV Titration 300 Amount Sodium Chloride 0.9% 1, 300 000 ml @ 50 mls/hr IV . Q20H KRISTIN Rx#:[id number] Oral 240 1260 Other: Voiding Method Toilet # Voids 1 3 # Bowel Movements 2 - Exam General appearance: The patient is alert, oriented, in no acute distress. Heart: S1 S2. Regular rate and rhythm. Lungs: No crackles or wheezes are heard. Abdomen: Soft, nontender, nondistended with bowel sounds. No peritoneal signs. No palpable organomegaly or masses. - Labs CBC & Chem 7: 01/31/18 07:03 01/31/18 01:07 Labs: Abnormal Lab Results - Last 24 Hours (Table) 01/30/18 01/30/18 01/30/18 Range/Units 11:41 16:44 20:04 RBC 3.56 L (4.30-5.90) m/uL Hgb 10.7 L (13.0-17.5) gm/dL Hct 32.9 L (39.0-53.0) % POC Glucose (mg/dL) 102 H 188 H (75-99) mg/dL 01/31/18 01/31/18 01/31/18 Range/Units 01:07 01:49 06:43 RBC 3.99 L (4.30-5.90) m/uL Hgb 11.8 L (13.0-17.5) gm/dL Hct 36.6 L (39.0-53.0) % POC Glucose (mg/dL) 136 H 101 H (75-99) mg/dL 01/31/18 Range/Units 07:03 RBC 3.91 L (4.30-5.90) m/uL Hgb 11.5 L (13.0-17.5) gm/dL Hct 35.4 L (39.0-53.0) % POC Glucose (mg/dL) (75-99) mg/dL Assessment and Plan (1) GI bleed Narrative/Plan: 67-year-old gentleman with a long-standing history of ulcerative colitis subsequent total proctocolectomy ileal pouch anal anastamosis maintained on mesalamine Entocort and Remicade presents with painless rectal bleeding 1 day. Presently being followed in the outpatient setting at [facility]. Etiology of bleeding possible exacerbation of inflammatory bowel disease possible pouchitis possible bleeding from anastomosis previously seen in July 2017 per colonoscopy requiring APC. Status: Acute Code(s): K92.2 - GASTROINTESTINAL HEMORRHAGE, UNSPECIFIED SNOMED Code(s): 56000408 (2) Anemia Narrative/Plan: Component of acute blood loss Status: Acute Code(s): D64.9 - ANEMIA, UNSPECIFIED SNOMED Code(s): 793567830 (3) Ulcerative colitis Status: Chronic Code(s): K51.90 - ULCERATIVE COLITIS, UNSPECIFIED, WITHOUT COMPLICATIONS SNOMED Code(s): 80267115 Plan: 1. Dr. Lopez spoke with [facility] automotive internet sales consultant GI physician yesterday evening regarding patient's clinical presentation and history. From a GI standpoint agreeable for discharge today. Bleeding seems to have subsided , denies abdominal pain. Continue with home medications as previously advised. Remicade rescheduled for tomorrow. Soft diet as tolerated. CBC monitoring in the outpatient setting. Patient verbalized he has a follow-up appointment at [facility] early February with Dr. Faria. Assessment and plan of care discussed with Dr. Lopez <Sergio Lopez - Last Filed: 02/02/18 10:26> Objective - Vital Signs Vital signs: Vital Signs Temp 98.5 F 01/31/18 07:20 Pulse 97 01/31/18 07:20 Resp 16 01/31/18 07:20 BP 123/81 01/31/18 07:20 Pulse Ox 97 01/31/18 07:20 - Labs CBC & Chem 7: 01/31/18 07:03 08/22/18 01:07 Assessment and Plan Plan: The patient has been seen and evaluated, and the plan of care discussed. I agree with the above recommendations and assessment and plan.
[2018-01-31] MEDS ORDERED: LOSARTAN 50 MG TAB PO SCH (09:00)
[2018-01-31] MEDS ORDERED: NON-FORMULARY DRUG (Omeprazole [Omeprazole] 20 MG) PO SCH (09:00)
[2018-01-31] MEDS ORDERED: FINASTERIDE 5 MG TAB PO SCH (09:00)
[2018-01-31] MEDS ORDERED: BUDESONIDE 9 MG PO SCH (09:00)
[2018-01-31] MEDS ORDERED: DULoxetine HCL 60 MG CAPSULE.DR PO SCH (09:00)
[2018-01-31] MEDS ORDERED: amLODIPine 10 MG TAB PO SCH (09:00)
[2018-01-31] MEDS ORDERED: METOPROLOL SUCCINATE (ER) 100 MG TAB.ER.24H PO SCH (09:00)
[2018-01-31] MEDS: INSULIN ASPART 100 UNIT/ML 1 ML 10 ML VIAL SQ SCH (09:17)
[2018-01-31] MEDS: DIPHENOX-ATROP 2.5-0.025 MG 1 EACH TAB PO SCH (09:18)
[2018-01-31] MEDS: PANTOPRAZOLE 40 MG/10 ML VIAL IVP SCH (09:20)
--- NOTE | 2018-01-31 14:04 | P.DS ---
Providers Date of admission: 01/30/18 03:52 Expected date of discharge: 01/31/18 Attending physician: Miguel Bautista Consults: 01/30/18 03:53 Consult Physician Routine Consulting Provider: Leonora Escoto Consult Reason/Comments: GI Bleed; Ulcerative Colitis Do you want consulting provider notified?: Yes Primary care physician: [facility] Course: This is a 67-year-old male patient of Dr. Bautista with past medical history of benign prostatic hypertrophy, CVA in 2015 and TIA in 2018, diabetes mellitus type 2, hyperlipidemia, hypertension, ulcerative colitis, history of kidney stones. 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 Webb as well as [facility]. He was recently started on Remicade and has completed 2 doses which are given every 4 weeks. He is due for his next dose tomorrow. They have not noticed any significant improvement. His diarrhea is 15-20 times per day and he is incontinent 4-5 times per day and it significantly impacting his lifestyle. On they noticed bleeding in his stool just a little bit at that time and it worsened last evening and he came into [facility] emergency center for evaluation. He was found to have hemoglobin 11.6 , platelet count 187, creatinine 20 and BUN 0.79. Blood sugar was 101. Troponin was negative. Occult blood positive. Patient was started on IV fluids and [facility] with consult for GI. GI recommends discharge of the patient in order to receive Remicade infusion tomorrow. Patient and his are in agreement. Repeat hemoglobin this afternoon is 10.7. Plan to recheck lab work in the morning and discharge in time for Remicade infusion. 01/31: Repeat hemoglobin this morning is 11.5. Patient will be discharged this morning as planned speak and follow up and have Remicade infusion today at the [facility]. Noted the patient's blood sugars continued to be on the low side running 83-136. Patient has been instructed to hold diabetic medications until blood sugars recover consistently. Patient will be discharged in stable condition. Discharge diagnoses: 1. Acute GI bleed with stable hemoglobin. 2. Ulcerative colitis under the care of Dr. Webb and [facility]. 3. Benign prostatic hypertrophy. 4. Diabetes mellitus type 2. 5. Hyperlipidemia. 6. Hypertension. 7. Recurrent depression. 8. History of CVA and TIA. Discharge plan: Return home Impression and plan of care have been directed as dictated by the signing physician. Azucena Goode nurse practitioner acting as scribe for signing physician. Patient Condition at Discharge: Good Plan - Discharge Summary Discharge Rx Participant: No New Discharge Prescriptions: Continue Multivit-Min/FA/Lycopen/Lutein [Centrum Silver Men Tablet] 1 cap PO DAILY DULoxetine HCL [Cymbalta] 60 mg PO DAILY Trospium Chloride [Sanctura] 20 mg PO BID Tamsulosin [Flomax] 0.4 mg PO HS Finasteride [Proscar] 5 mg PO DAILY Metoprolol Succinate [Toprol XL] 100 mg PO DAILY Losartan [Cozaar] 50 mg PO DAILY Linagliptin [Tradjenta] 5 mg PO DAILY Atorvastatin [Lipitor] 40 mg PO HS Diphenox-Atrop 2.5-0.025 mg [Lomotil] 1 tab PO BID Cholecalciferol [Vitamin D3] 5,000 unit PO DAILY Insulin Glargine,Hum.rec.anlog [Basaglar Kwikpen U-100] 32 unit SQ HS Budesonide [Budesonide EC] 9 mg PO DAILY Ferrous Sulfate [Iron (65 MG Elemental)] 325 mg PO HS Apriso 0.375 mg PO DAILY amLODIPine [Norvasc] 5 mg PO DAILY Calcium Polycarbophil [Fibercon] 625 mg PO DAILY Fexofenadine HCl [Lu Allergy] 60 mg PO BID PRN PRN Reason: Allergy Symptoms Menthol/Zinc Oxide [Calmoseptine Ointment] 1 gm RECTAL DAILY PRN PRN Reason: Pain Mesalamine [Asacol Hd] 800 mg PO DAILY Omeprazole 20 mg PO DAILY Vsl #3 112.5 1 cap PO DAILY Discontinued Aspirin [Adult Low Dose Aspirin EC] 81 mg PO DAILY Meloxicam 15 mg PO DAILY Discharge Medication List Atorvastatin [Lipitor] 40 mg PO HS 02/06/17 [History] DULoxetine HCL [Cymbalta] 60 mg PO DAILY 02/06/17 [History] Finasteride [Proscar] 5 mg PO DAILY 02/06/17 [History] Linagliptin [Tradjenta] 5 mg PO DAILY 02/06/17 [History] Losartan [Cozaar] 50 mg PO DAILY 02/06/17 [History] Metoprolol Succinate [Toprol XL] 100 mg PO DAILY 02/06/17 [History] Multivit-Min/FA/Lycopen/Lutein [Centrum Silver Men Tablet] 1 cap PO DAILY [History] Tamsulosin [Flomax] 0.4 mg PO HS 02/06/17 [History] Trospium Chloride [Sanctura] 20 mg PO BID 02/06/17 [History] Diphenox-Atrop 2.5-0.025 mg [Lomotil] 1 tab PO BID 07/20/17 [History] Budesonide [Budesonide EC] 9 mg PO DAILY 11/19/17 [History] Cholecalciferol [Vitamin D3] 5,000 unit PO DAILY 11/19/17 [History] Insulin Glargine,Hum.rec.anlog [Basaglar Kwikpen U-100] 32 unit SQ HS 11/19/17 [ History] Apriso 0.375 mg PO DAILY 12/18/17 [History] Ferrous Sulfate [Iron (65 MG Elemental)] 325 mg PO HS 12/18/17 [History] Calcium Polycarbophil [Fibercon] 625 mg PO DAILY 01/30/18 [History] Fexofenadine HCl [Lu Allergy] 60 mg PO BID PRN 01/30/18 [History] Menthol/Zinc Oxide [Calmoseptine Ointment] 1 gm RECTAL DAILY PRN 01/30/18 [ History] Mesalamine [Asacol Hd] 800 mg PO DAILY 01/30/18 [History] Omeprazole 20 mg PO DAILY 01/30/18 [History] Vsl #3 112.5 1 cap PO DAILY 01/30/18 [History] amLODIPine [Norvasc] 5 mg PO DAILY 01/30/18 [History] Follow up Appointment(s)/Referral(s): Miguel Bautista MD [Primary Care Provider] - 02/01/18 2:30 pm Patient Instructions/Handouts: Gastrointestinal Bleeding (DC), Low Fiber Diet ( DC), Low Fiber Diet (GEN) Activity/Diet/Wound Care/Special Instructions: Rony Chase and insulin at home until blood sugars are recovered. Discharge Disposition: HOME SELF-CARE
== END 2018-01-31 10:19 | disposition home or self-care (01) | DRG 386 ==
LOC: EC 01:37 → 3SUR 03:52
PROVIDERS: ADMIT Internal Medicine Geriatric Medicine; ATTEND Internal Medicine Geriatric Medicine
DX: K51.911 Ulcerative colitis, unspecified with rectal bleeding (principal); D62 Acute posthemorrhagic anemia; F33.9 Major depressive disorder, recurrent, unspecified; R15.9 Full incontinence of feces; I69.998 Other sequelae following unspecified cerebrovascular disease; E11.9 Type 2 diabetes mellitus without complications; E78.5 Hyperlipidemia, unspecified; H91.90 Unspecified hearing loss, unspecified ear; I10 Essential (primary) hypertension; N40.0 Benign prostatic hyperplasia without lower urinary tract symptoms; Z79.4 Long term (current) use of insulin; Z79.82 Long term (current) use of aspirin; Z79.899 Other long term (current) drug therapy; Z88.5 Allergy status to narcotic agent; Z87.442 Personal history of urinary calculi; Z87.891 Personal history of nicotine dependence; Z98.41 Cataract extraction status, right eye; Z98.42 Cataract extraction status, left eye; Z96.1 Presence of intraocular lens; Z96.652 Presence of left artificial knee joint; Z90.49 Acquired absence of other specified parts of digestive tract; Z80.0 Family history of malignant neoplasm of digestive organs; Z82.49 Family history of ischemic heart disease and other diseases of the circulatory system; Z83.3 Family history of diabetes mellitus
CPT/HCPCS: 36415; 80053; 82272; 82550; 82553; 82947; 83036; 84484; 85025; 85027; 85610; 85730; 86850; 86900; 86901; 87324; 93005; 96374; 99285

== ENCOUNTER 2018-05-15 01:15 | Emergency (ER) | payer MEDICARE, OTHER ==
[2018-05-15 01:22] VITALS: TEMP 98.5
[2018-05-15] MEDS: SODIUM CHLORIDE 0.9% 500 ML 500 ML IV SCH (02:31)
[2018-05-15 02:55] LABS: Basophils % (A) 0 %; Eosinophils # (A) 0.2 k/uL (0-0.7); Eosinophils % (A) 1 %; HCT 42.4 % (39.0-53.0); HGB 14.1 gm/dL (13.0-17.5); Lymphocytes # (A) 0.8 k/uL (1.0-4.8); Lymphocytes % (A) 5 %; MCH 30.1 pg (25.0-35.0); MCHC 33.3 g/dL (31.0-37.0); MCV 90.4 fL (80.0-100.0); Mean Platelet Volume 9.3; Monocytes # (A) 0.7 k/uL (0-1.0); Monocytes % (A) 5 %; Neutrophils # (A) 12.7 k/uL (1.3-7.7); Neutrophils % (A) 87 %; Platelet Count 141 k/uL (150-450); RBC 4.69 m/uL (4.30-5.90); WBC 14.6 k/uL (3.8-10.6)
[2018-05-15 03:00] LABS: Albumin 4.8 g/dL (3.5-5.0); Calcium 10.7 mg/dL (8.4-10.2); Potassium 4.7 mmol/L (3.5-5.1); Total Bilirubin 0.4 mg/dL (0.2-1.3); Total Protein 7.9 g/dL (6.3-8.2)
[2018-05-15 03:06] LABS: Partial Thromboplastin Time 24.4 sec (22.0-30.0); Prothrombin Time 9.6 sec (9.0-12.0)
--- NOTE | 2018-05-15 03:35 | ED ---
Abdominal Pain HPI - General Source: patient Mode of arrival: ambulatory Limitations: no limitations <Inez Oliveira - Last Filed: 05/15/18 04:04> <Micki Narayanan - Last Filed: 05/16/18 02:50> - General Chief Complaint: Abdominal Pain Stated Complaint: post-op complications Time Seen by Provider: 05/15/18 01:56 - History of Present Illness Initial Comments: 67-year-old male past medical history of CVA, GI bleed, ulcerative colitis status post ileostomy placement 03/19/2018 presenting today for chief complaint of increased watery ostomy output, and left upper quadrant abdominal pain. Patient states that he had an ileostomy placed following GI bleed in March at [facility] Dr. Rivas. Patient states surgery went well, he had upper endoscopy to evaluate ulcers of the duodenum last week, he has appointment Monday to review the results. Patient states that today around 6 :00 PM he began noticing watery profuse output from ostomy bag. 2000mL over course of ~3 hours. He states this is different from his usual oatmeal-like consistency. In addition patient had one episode of vomiting and noted left upper quadrant pain/cramping sensation. Patient denies hematemesis, blood or darkening of ostomy output. Patient denies fever, chills or night sweats. Patient states abdominal pain has resolved upon arrival. Patient denies any additional episodes of emesis. Upon arrival patient heart rate elevated, he appears well nontoxic. No signs of acute distress. Afebrile. Remainder of ROS negative, patient denies any recent shortness of breath, chest pain, back pain, numbness or tingling, dysuria or hematuria, headaches or visual changes, or any other complaints. (Inez Oliveira) - Related Data Home Medications Medication Instructions Recorded Confirmed Atorvastatin [Lipitor] 40 mg PO HS 02/06/17 02/01/18 DULoxetine HCL [Cymbalta] 60 mg PO DAILY 02/06/17 02/01/18 Finasteride [Proscar] 5 mg PO DAILY 02/06/17 02/01/18 Linagliptin [Tradjenta] 5 mg PO DAILY 02/06/17 02/01/18 Losartan [Cozaar] 50 mg PO DAILY 02/06/17 02/01/18 Metoprolol Succinate [Toprol XL] 100 mg PO DAILY 02/06/17 02/01/18 Multivit-Min/FA/Lycopen/Lutein 1 cap PO DAILY 02/06/17 02/01/18 [Centrum Silver Men Tablet] Tamsulosin [Flomax] 0.4 mg PO HS 02/06/17 02/01/18 Trospium Chloride [Sanctura] 20 mg PO BID 02/06/17 02/01/18 Diphenox-Atrop 2.5-0.025 mg 1 tab PO BID 07/20/17 02/01/18 [Lomotil] Budesonide [Budesonide EC] 9 mg PO DAILY 11/19/17 02/01/18 Cholecalciferol [Vitamin D3] 5,000 unit PO DAILY 11/19/17 02/01/18 Insulin Glargine,Hum.rec.anlog 32 unit SQ 11/19/17 02/01/18 [Basaglar Kwikpen U-100] Apriso 0.375 mg PO DAILY 12/18/17 02/01/18 Ferrous Sulfate [Iron (65 MG 325 mg PO HS 12/18/17 02/01/18 Elemental)] Calcium Polycarbophil [Fibercon] 625 mg PO DAILY 01/30/18 02/01/18 Fexofenadine HCl [Lu Allergy] 60 mg PO BID PRN 01/30/18 02/01/18 Menthol/Zinc Oxide [Calmoseptine 1 gm RECTAL DAILY PRN 01/30/18 02/01/18 Ointment] Mesalamine [Asacol Hd] 800 mg PO DAILY 01/30/18 02/01/18 Omeprazole 20 mg PO DAILY 01/30/18 02/01/18 Vsl #3 112.5 1 cap PO DAILY 01/30/18 02/01/18 amLODIPine [Norvasc] 5 mg PO DAILY 01/30/18 02/01/18 Allergies Allergy/AdvReac Type Severity Reaction Status Date / Time codeine Allergy Rash/Hives Verified 05/15/18 01:22 morphine Allergy Rash/Hives Verified 05/15/18 01:22 Review of Systems ROS Other: All systems not noted in ROS Statement are negative. Constitutional: Denies: fever, chills, night sweats Eyes: Denies: eye pain ENT: Denies: ear pain, throat pain Respiratory: Denies: as per HPI, cough, dyspnea, wheezes, hemoptysis, stridor Cardiovascular: Denies: chest pain, palpitations Endocrine: Denies: fatigue Gastrointestinal: Reports: abdominal pain, nausea, vomiting, diarrhea (ostomy output waterfy/profuse). Denies: constipation, hematemesis, melena, hematochezia Genitourinary: Denies: urgency, dysuria, frequency, hematuria Musculoskeletal: Denies: back pain Skin: Denies: rash, lesions Neurological: Denies: headache, numbness, paresthesias, confusion, abnormal gait <Inez Oliveira L - Last Filed: 05/15/18 04:04> ROS Other: All systems not noted in ROS Statement are negative. <Micki Narayanan P - Last Filed: 05/16/18 02:50> ROS Statement: Those systems with pertinent positive or pertinent negative responses have been documented in the HPI. Past Medical History Past Medical History: CVA/TIA, Diabetes Mellitus, Eye Disorder, Hearing Disorder / Deafness, Hyperlipidemia, Hypertension, Prostate Disorder Additional Past Medical History / Comment(s): 05/2015 CVA and 08/2017, continues to have occasional balance issues. BLOOD IN STOOL ON/OFF., Ulcerative Colitis, hx kidney stone. BPH. illeostomy placed March 19, 2018 History of Any Multi-Drug Resistant Organisms: None Reported Past Surgical History: Appendectomy, Bowel Resection, Hernia Repair, Joint Replacement Additional Past Surgical History / Comment(s): APPENDEX RUPTURE, HAS J pouch. Left partial knee replacement. 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 HE WAS INSTRUCTED TO NOT RECEIVE NITROUS OXIDE OR RIDE IN A PLANE UNTIL GAS BUBBLE IS GONE. Past Psychological History: Depression Smoking Status: Former smoker Past Alcohol Use History: Rare Past Drug Use History: None Reported - Past Family History Mother Family Medical History: Cancer, Diabetes Mellitus Additional Family Medical History / Comment(s): COLON CA Father Additional Family Medical History / Comment(s): Father is with history of coronary artery disease. Patient has 4 children that are healthy with no major medical problems. Brother(s) Additional Family Medical History / Comment(s): Patient has 4 brothers. Two at the age of 44 from coronary artery disease with history of tobacco use and alcohol dependence. One from aneurysm in the chest. <Inez Oliveira - Last Filed: 05/15/18 04:04> General Exam Limitations: no limitations <Inez Oliveira L - Last Filed: 05/15/18 04:04> <NarayananMicki P - Last Filed: 05/16/18 02:50> - General Exam Comments Initial Comments: General: The patient is awake and alert, in no distress, and does not appear acutely ill. Eye: Pupils are equal, round and reactive to light, extra-ocular movements are intact. No nystagmus. There is normal conjunctiva bilaterally. No signs of icterus. Ears, nose, mouth and throat: There are moist mucous membranes and no oral lesions. Neck: The neck is supple, there is no tenderness or JVD. Cardiovascular: There is a regular rate and rhythm. No murmur, rub or gallop is appreciated. Respiratory: Lungs are clear to auscultation, respirations are non-labored, breath sounds are equal. No wheezes, stridor, rales, or rhonchi. Gastrointestinal: No noted diaphoresis, jaundice, pallor, protecting postures or squirming. Symmetrical pigmentation of abdomen without signs of inflammation. Umbilicus mildline, inverted without swelling. The ostomy bag in place, no inflammatory changes of stoma noted. Watery output present in bag, no blood. No dilated veins. No noted abdominal distention. No visible masses. No peristalsis, aortic pulsations, or ventral hernia. Bowel sounds audible in all 4 quadrants, unremarkable. No friction rubs or venous hums. No epigastic, hepatic or abdominal bruits. No tenderness to light or deep palpation of the abdomen/ pelvis. Liver edge, not palpable. Spleen edge, right and left kidney not palpable. Superior bladder margin non-tender. Special Testing: Negative [place], Rovsing, McBurney, Ruddy, cutaneous hyperesthesia. Iliopsoas and obturator tests negative bilaterally. Negative Heel Jar test/ champ sign. No CVA tenderness. Digital rectal exam deferred. Negative booth turners or cullens sign Musculoskeletal: Normal ROM, no tenderness. Strength 5/5. Sensation intact. Radial pulses equal bilaterally 2+. Neurological: A&O x 3. CN II-XII intact, There are no obvious motor or sensory deficits. Coordination appears grossly intact. Speech is normal. Skin: Skin is warm and dry and no rashes or lesions are noted. Psychiatric: Cooperative, appropriate mood & affect, normal judgment. (Inez Oliveira) Vital Signs 05/15/18 05/15/18 05/15/18 01:18 03:00 03:30 Temperature 98.5 F Pulse Rate 114 H 101 H 102 H Respiratory 18 20 18 Rate Blood Pressure 128/87 126/89 112/87 O2 Sat by Pulse 99 95 96 Oximetry 05/15/18 05/15/18 05/15/18 04:00 04:30 06:08 Temperature Pulse Rate 96 Respiratory 16 Rate Blood Pressure 118/85 118/85 117/83 O2 Sat by Pulse 98 Oximetry 05/15/18 06:10 Temperature Pulse Rate Respiratory Rate Blood Pressure 117/83 O2 Sat by Pulse Oximetry Medical Decision Making - Lab Data Result diagrams: 05/15/18 02:30 05/15/18 02:30 <Inez Oliveira - Last Filed: 05/15/18 04:04> - Lab Data Result diagrams: 05/15/18 02:30 05/15/18 02:30 <Micki Narayanan - Last Filed: 05/16/18 02:50> - Medical Decision Making 67yo male with cc of increased watery output of ostomy bag, isolated episode of vomiting/LUQ pain concerning for infection, c. dif infection. Laboratory studies revealed elevated WBC and lactic. Lactic 3.8. Pt given 1L bolus. Stool culture pending. Pt started on PO vancymycin given suspicion for c. diff infection. CT pending, case discussed at this time with Dr. Narayanan who will continue pt care/evaluate patient. (Inez Oliveira) The history and physical exam were done by the midlevel provider. I was consulted for this patient's care. I reviewed the case with the midlevel provider and based on their presentation of the patient, I agree with the assessment, medical decision making and plan of care as documented. I reevaluated the patient after IV fluid bolus, patient reports feeling significantly improved, he reports his ileostomy output has decreased significantly. He reports his abdominal cramping is resolved. At this time the patient states he feels comfortable with the plan for discharge home as he doesn't feel there is any need to go to [facility] where he had his previous surgery. Based on my physical exam I do feel the patient is stable for discharge home. Repeat labs to reveal significant improvement in his lactic acidosis after IV fluids. All questions pertaining care were answered best my ability return parameters were discussed and the patient was discharged home in stable condition. (Micki Narayanan) - Lab Data Lab Results 05/15/18 05/15/18 05/15/18 Range/Units 02:30 02:30 02:30 WBC 14.6 H (3.8-10.6) k/uL RBC 4.69 (4.30-5.90) m/uL Hgb 14.1 (13.0-17.5) gm/dL Hct 42.4 (39.0-53.0) % MCV 90.4 (80.0-100.0) fL MCH 30.1 (25.0-35.0) pg MCHC 33.3 (31.0-37.0) g/dL RDW 15.0 (11.5-15.5) % Plt Count 141 L (150-450) k/uL Neutrophils % 87 % Lymphocytes % 5 % Monocytes % 5 % Eosinophils % 1 % Basophils % 0 % Neutrophils # 12.7 H (1.3-7.7) k/uL Lymphocytes # 0.8 L (1.0-4.8) k/uL Monocytes # 0.7 (0-1.0) k/uL Eosinophils # 0.2 (0-0.7) k/uL Basophils # 0.0 (0-0.2) k/uL PT (9.0-12.0) sec INR (<1.2) APTT (22.0-30.0) sec Sodium 139 (137-145) mmol/L Potassium 4.7 (3.5-5.1) mmol/L Chloride 108 H (98-107) mmol/L Carbon Dioxide 18 L (22-30) mmol/L Anion Gap 13 mmol/L BUN 18 (9-20) mg/dL Creatinine 1.07 (0.66-1.25) mg/dL Est GFR (CKD-EPI)AfAm 82 (>60 ml/min/1.73 sqM) Est GFR (CKD-EPI)NonAf 71 (>60 ml/min/1.73 sqM) Glucose 163 H (74-99) mg/dL Lactic Ac Sepsis Rflx Plasma Lactic Acid Chris 3.4 H* (0.7-2.0) mmol/L Calcium 10.7 H (8.4-10.2) mg/dL Total Bilirubin 0.4 (0.2-1.3) mg/dL AST 44 (17-59) U/L ALT 38 (21-72) U/L Alkaline Phosphatase 64 (38-126) U/L Total Protein 7.9 (6.3-8.2) g/dL Albumin 4.8 (3.5-5.0) g/dL C. difficile (EIA) Intrp (Negative) 05/15/18 05/15/18 05/15/18 Range/Units 02:30 03:06 03:10 WBC (3.8-10.6) k/uL RBC (4.30-5.90) m/uL Hgb (13.0-17.5) gm/dL Hct (39.0-53.0) % MCV (80.0-100.0) fL MCH (25.0-35.0) pg MCHC (31.0-37.0) g/dL RDW (11.5-15.5) % Plt Count (150-450) k/uL Neutrophils % % Lymphocytes % % Monocytes % % Eosinophils % % Basophils % % Neutrophils # (1.3-7.7) k/uL Lymphocytes # (1.0-4.8) k/uL Monocytes # (0-1.0) k/uL Eosinophils # (0-0.7) k/uL Basophils # (0-0.2) k/uL PT 9.6 (9.0-12.0) sec INR 1.0 (<1.2) APTT 24.4 (22.0-30.0) sec Sodium (137-145) mmol/L Potassium (3.5-5.1) mmol/L Chloride (98-107) mmol/L Carbon Dioxide (22-30) mmol/L Anion Gap mmol/L BUN (9-20) mg/dL Creatinine (0.66-1.25) mg/dL Est GFR (CKD-EPI)AfAm (>60 ml/min/1.73 sqM) Est GFR (CKD-EPI)NonAf (>60 ml/min/1.73 sqM) Glucose (74-99) mg/dL Lactic Ac Sepsis Rflx Y Plasma Lactic Acid Chris (0.7-2.0) mmol/L Calcium (8.4-10.2) mg/dL Total Bilirubin (0.2-1.3) mg/dL AST (17-59) U/L ALT (21-72) U/L Alkaline Phosphatase (38-126) U/L Total Protein (6.3-8.2) g/dL Albumin (3.5-5.0) g/dL C. difficile (EIA) Intrp Negative (Negative) 05/15/18 05/15/18 Range/Units 05:02 05:54 WBC (3.8-10.6) k/uL RBC (4.30-5.90) m/uL Hgb (13.0-17.5) gm/dL Hct (39.0-53.0) % MCV (80.0-100.0) fL MCH (25.0-35.0) pg MCHC (31.0-37.0) g/dL RDW (11.5-15.5) % Plt Count (150-450) k/uL Neutrophils % % Lymphocytes % % Monocytes % % Eosinophils % % Basophils % % Neutrophils # (1.3-7.7) k/uL Lymphocytes # (1.0-4.8) k/uL Monocytes # (0-1.0) k/uL Eosinophils # (0-0.7) k/uL Basophils # (0-0.2) k/uL PT (9.0-12.0) sec INR (<1.2) APTT (22.0-30.0) sec Sodium (137-145) mmol/L Potassium (3.5-5.1) mmol/L Chloride (98-107) mmol/L Carbon Dioxide (22-30) mmol/L Anion Gap mmol/L BUN (9-20) mg/dL Creatinine (0.66-1.25) mg/dL Est GFR (CKD-EPI)AfAm (>60 ml/min/1.73 sqM) Est GFR (CKD-EPI)NonAf (>60 ml/min/1.73 sqM) Glucose (74-99) mg/dL Lactic Ac Sepsis Rflx Y Plasma Lactic Acid Chris 2.1 H* (0.7-2.0) mmol/L Calcium (8.4-10.2) mg/dL Total Bilirubin (0.2-1.3) mg/dL AST (17-59) U/L ALT (21-72) U/L Alkaline Phosphatase (38-126) U/L Total Protein (6.3-8.2) g/dL Albumin (3.5-5.0) g/dL C. difficile (EIA) Intrp (Negative) - EKG Data EKG Comments: A 12-lead EKG was performed and shows the following: Rate is 103bpm, and rhythm is normal sinus. There are normal QRS complexes and normal R-wave progression. ST segments have no elevation or depression, and [place] segments appear normal. (Inez Oliveira) Disposition <Inez Oliveira - Last Filed: 05/15/18 04:04> Is patient prescribed a controlled substance at d/c from ED?: No Time of Disposition: 06:18 <Micki Narayanan - Last Filed: 05/16/18 02:50> Clinical Impression: Enteritis, Increased ileostomy output Disposition: HOME SELF-CARE Condition: Good Instructions: Ileostomy Care (ED), Ileostomy Diet (ED) Referrals: Miguel Bautista MD [Primary Care Provider] - 1-2 days
--- NOTE | 2018-05-15 04:17 | CT ---
EXAMINATION TYPE: CT abdomen pelvis w con DATE OF EXAM: 05/15/2018 COMPARISON: 02/28/2017 HISTORY: abd pain CT DLP: 883.1 mGycm Automated exposure control for dose reduction was used. TECHNIQUE: Helical acquisition of images was performed from the lung bases through the pelvis. CONTRAST: Performed without Oral Contrast and with IV Contrast, patient injected with 100 mL of Isovue 300. FINDINGS: Lung bases are clear of consolidation. There is no pleural effusion. There is small area of atelectas is in the lingula left upper lobe. There is no pericardial effusion. Liver appears normal. Gallbladder appears normal. Bile ducts are not dilated. Spleen appears normal. Stomach is normal. There is no pancreatic mass. There are clips in the right upper quadrant. There is some mild fat stranding in the right upper quadrant. There is ileostomy in the right upper quadrant. There is apparent total colectomy. There is postsurgical changes in the pelvis. There are multiple s urgical clips in the right mid abdomen. There is some mild small bowel distention with fluid-filled l oops that measure up to 3.5 cm in the lower abdomen. There is no adrenal mass. There are left renal cortical cysts that measure up to 2.6 cm. There is a 1 cm calculus in the lower pole right kidney. There is no hydronephrosis. Ureters are not dilated. Abd ominal aorta is atheromatous. There is no retroperitoneal adenopathy. Bladder distends smoothly. Ther e is prostatic calcification. There is no inguinal hernia. There is small ventral hernia in the mid a bdomen that contains fat. There are spondylotic changes in the lumbar spine. I see no bony destructiv e process. The bony pelvis appears intact. IMPRESSION: EXTENSIVE ABDOMINAL SURGERY WITH TOTAL COLECTOMY AND ADDITIONAL EXTENSIVE SMALL BOWEL SURGERY. THERE ARE SOME MILDLY DILATED SMALL BOWEL IN THE LOWER ABDOMEN BUT I DO NOT THINK THERE IS A MECHANICAL OBS TRUCTION. THIS IS MORE LIKELY RELATED TO ILEUS. POSTSURGICAL CHANGES AND FAT STRANDING IN THE PELVIS. THERE IS ALSO LOCALIZED FAT STRANDING IN THE RIGHT UPPER QUADRANT POSTERIOR TO THE DISTAL ILEUM NEAR THE ILEOSTOMY. CLINICAL SIGNIFICANCE IS NOT CLEAR.
[2018-05-15] MEDS ORDERED: VANCOMYCIN ORAL SOLUTION 250 MG/5 ML BOTTLE PO SCH (06:00)
[2018-05-15 06:08] VITALS: BP 117/83; PULSE 96; RESP 16
== END 2018-05-15 06:29 | disposition home or self-care (01) ==
LOC: EC 01:15
DX: K52.9 Noninfective gastroenteritis and colitis, unspecified (principal); K94.19 Other complications of enterostomy; D72.829 Elevated white blood cell count, unspecified; E87.2 Acidosis; R00.0 Tachycardia, unspecified; E11.9 Type 2 diabetes mellitus without complications; E78.5 Hyperlipidemia, unspecified; I10 Essential (primary) hypertension; F32.9 Major depressive disorder, single episode, unspecified; Z86.73 Personal history of transient ischemic attack (TIA), and cerebral infarction without residual deficits; Z87.19 Personal history of other diseases of the digestive system; Z87.442 Personal history of urinary calculi; Z87.438 Personal history of other diseases of male genital organs; Z90.49 Acquired absence of other specified parts of digestive tract; Z98.890 Other specified postprocedural states; Z96.652 Presence of left artificial knee joint; Z87.891 Personal history of nicotine dependence; Z79.52 Long term (current) use of systemic steroids; Z79.4 Long term (current) use of insulin; Z79.899 Other long term (current) drug therapy; Z88.5 Allergy status to narcotic agent
CPT/HCPCS: 99284; 36415; 93005; 80053; 83605; 85025; 85610; 85730; 87040; 87324; 74177; Q9967

== ENCOUNTER 2018-12-05 13:05 | Inpatient (IN) | payer MEDICARE, OTHER ==
[2018-12-05] MEDS ORDERED: SODIUM CHLORIDE 0.9% 1,000 ML IV STA ×2 (13:52→14:55)
[2018-12-05] MEDS ORDERED: ONDANSETRON 4 MG/2 ML VIAL IVP STA (13:52)
--- NOTE | 2018-12-05 13:55 | ED ---
General Adult HPI - General Chief complaint: Nausea/Vomiting/Diarrhea Stated complaint: vomiting Time Seen by Provider: 12/05/18 13:15 Source: patient Mode of arrival: wheelchair Limitations: no limitations - History of Present Illness Initial comments: Patient is a 68-year-old male presents emergency Department with nausea or vomiting x1 day. Patient reports he returned yesterday from a 5 day trip to [facility]. Patient states that he accidentally swallowed some ocean water while in the trip. Patient states that he has an ileostomy bag. Patient reports he was able to keep small amounts of liquids but no solid foods. Patient denies diarrhea but states the smell of feces has drastically changed. Patient denies taking any medication to alleviate the pain. Patient denies fever, abdominal pain, back pain, chest pain, chest palpitations, chest tightness or headache. - Related Data Home Medications Medication Instructions Recorded Confirmed Atorvastatin [Lipitor] 40 mg PO HS 02/06/17 12/05/18 DULoxetine HCL [Cymbalta] 60 mg PO DAILY 02/06/17 12/05/18 Finasteride [Proscar] 5 mg PO DAILY 02/06/17 12/05/18 Linagliptin [Tradjenta] 5 mg PO DAILY 02/06/17 12/05/18 Multivit-Min/FA/Lycopen/Lutein 1 cap PO DAILY 02/06/17 12/05/18 [Centrum Silver Men Tablet] Tamsulosin [Flomax] 0.4 mg PO HS 02/06/17 12/05/18 Trospium Chloride [Sanctura] 20 mg PO BID 02/06/17 12/05/18 Diphenox-Atrop 2.5-0.025 mg 1 tab PO BID 07/20/17 12/05/18 [Lomotil] Cholecalciferol [Vitamin D3 (25 5,000 unit PO DAILY 11/19/17 12/05/18 Mcg = 1000 Iu)] Insulin Glargine,Hum.rec.anlog 30 unit SQ HS 11/19/17 12/05/18 [Basaglar Kwikpen U-100] Ferrous Sulfate [Iron (65 MG 325 mg PO HS 12/18/17 12/05/18 Elemental)] Fexofenadine HCl [Lu Allergy] 60 mg PO DAILY 01/30/18 12/05/18 Baclofen [Lioresal] 10 mg PO QID PRN 12/05/18 12/05/18 Celecoxib [CeleBREX] 200 mg PO DAILY 12/05/18 12/05/18 Losartan [Cozaar] 25 mg PO DAILY 12/05/18 12/05/18 Metoprolol Succinate (ER) [Toprol 50 mg PO DAILY 12/05/18 12/05/18 Xl] Omeprazole 40 mg PO DAILY 12/05/18 12/05/18 amLODIPine [Norvasc] 5 mg PO DAILY 12/05/18 12/05/18 Allergies Allergy/AdvReac Type Severity Reaction Status Date / Time codeine Allergy Rash/Hives Verified 12/05/18 13:25 morphine Allergy Rash/Hives Verified 12/05/18 13:25 Review of Systems ROS Statement: Those systems with pertinent positive or pertinent negative responses have been documented in the HPI. ROS Other: All systems not noted in ROS Statement are negative. Past Medical History Past Medical History: CVA/TIA, Diabetes Mellitus, Eye Disorder, Hearing Disorder / Deafness, Hyperlipidemia, Hypertension, Prostate Disorder Additional Past Medical History / Comment(s): 05/2015 CVA and 08/2017, continues to have occasional balance issues. BLOOD IN STOOL ON/OFF., Ulcerative Colitis, hx kidney stone. BPH. illeostomy placed March 19, 2018 History of Any Multi-Drug Resistant Organisms: None Reported Past Surgical History: Appendectomy, Bowel Resection, Hernia Repair, Joint Replacement Additional Past Surgical History / Comment(s): APPENDEX RUPTURE, HAS J pouch. Left partial knee replacement. 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 HE WAS INSTRUCTED TO NOT RECEIVE NITROUS OXIDE OR RIDE IN A PLANE UNTIL GAS BUBBLE IS GONE. Past Psychological History: Depression Smoking Status: Former smoker Past Alcohol Use History: Rare Past Drug Use History: None Reported - Past Family History Mother Family Medical History: Cancer, Diabetes Mellitus Additional Family Medical History / Comment(s): COLON CA Father Additional Family Medical History / Comment(s): Father is with history of coronary artery disease. Patient has 4 children that are healthy with no major medical problems. Brother(s) Additional Family Medical History / Comment(s): Patient has 4 brothers. Two at the age of 44 from coronary artery disease with history of tobacco use and alcohol dependence. One from aneurysm in the chest. General Exam Limitations: no limitations General appearance: alert, in no apparent distress Head exam: Present: atraumatic, normocephalic, normal inspection Eye exam: Present: normal appearance, PERRL, EOMI Pupils: Present: normal accommodation ENT exam: Present: normal exam, normal oropharynx, mucous membranes moist, normal external ear exam Neck exam: Present: normal inspection, full ROM. Absent: tenderness, lymphadenopathy Respiratory exam: Present: normal lung sounds bilaterally Cardiovascular Exam: Present: regular rate, tachycardia, normal heart sounds GI/Abdominal exam: Present: soft, other (Ileostomy bag). Absent: distended Extremities exam: Present: normal inspection, full ROM Back exam: Present: normal inspection, full ROM. Absent: CVA tenderness (R), CVA tenderness (L) Neurological exam: Present: alert, oriented X3 Psychiatric exam: Present: normal affect, normal mood Skin exam: Present: warm, intact, normal color Course Vital Signs 12/05/18 12/05/18 12/05/18 13:09 15:02 15:24 Temperature 98.5 F Pulse Rate 119 H 110 H 103 H Respiratory 18 20 18 Rate Blood Pressure 92/65 99/62 107/52 O2 Sat by Pulse 99 92 L 97 Oximetry 12/05/18 17:19 Temperature Pulse Rate 72 Respiratory 18 Rate Blood Pressure 98/67 O2 Sat by Pulse 99 Oximetry Medical Decision Making - Medical Decision Making Patient is a 68-year-old male presents emergency Department with nausea or vomiting. Basic labs were collected which show an elevated potassium level (6.6). Calcium gluconate , 2 L of fluids, 10 mg of regular insulin, D50 and Zofran were administered. Repeat labs show potassium levels of 4.6. Patient will be admitted for further observation in telemetry. Potassium labs will be drawn every 6 hours. The admitting physician is Dr. Bautista. Case discussed with Dr. James was examine the patient and is in agreement with the treatment plan. - Lab Data Result diagrams: 12/05/18 14:00 12/05/18 16:13 Lab Results 12/05/18 12/05/18 12/05/18 Range/Units 14:00 14:00 16:13 WBC 8.5 (3.8-10.6) k/uL RBC 5.07 (4.30-5.90) m/uL Hgb 15.3 (13.0-17.5) gm/dL Hct 45.5 (39.0-53.0) % MCV 89.8 (80.0-100.0) fL MCH 30.2 (25.0-35.0) pg MCHC 33.6 (31.0-37.0) g/dL RDW 13.0 (11.5-15.5) % Plt Count 172 (150-450) k/uL Sodium 131 L 133 L (137-145) mmol/L Potassium 6.6 H* 4.9 (3.5-5.1) mmol/L Chloride 103 109 H (98-107) mmol/L Carbon Dioxide 11 L 14 L (22-30) mmol/L Anion Gap 17 10 mmol/L BUN 43 H 40 H (9-20) mg/dL Creatinine 1.93 H 1.54 H (0.66-1.25) mg/dL Est GFR (CKD-EPI)AfAm 40 52 (>60 ml/min/1.73 sqM) Est GFR (CKD-EPI)NonAf 34 45 (>60 ml/min/1.73 sqM) Glucose 207 H 136 H (74-99) mg/dL Calcium 9.9 9.0 (8.4-10.2) mg/dL Total Bilirubin 0.8 0.6 (0.2-1.3) mg/dL AST 45 38 (17-59) U/L ALT 46 34 (21-72) U/L Alkaline Phosphatase 85 64 (38-126) U/L Total Protein 8.3 H 6.5 (6.3-8.2) g/dL Albumin 5.1 H 4.0 (3.5-5.0) g/dL Disposition Clinical Impression: Hyperkalemia, Nausea & vomiting Disposition: ADMITTED IP TO THIS HOSP Condition: Stable Instructions (If sedation given, give patient instructions): Acute Nausea and Vomiting (ED) Additional Instructions: Patient will be admitted to telemetry. Is patient prescribed a controlled substance at d/c from ED?: No Referrals: Miguel Bautista MD [Primary Care Provider] - 1-2 days Time of Disposition: 18:17
[2018-12-05 14:25] LABS: HCT 45.5 % (39.0-53.0); HGB 15.3 gm/dL (13.0-17.5); MCH 30.2 pg (25.0-35.0); MCHC 33.6 g/dL (31.0-37.0); MCV 89.8 fL (80.0-100.0); Mean Platelet Volume 9.6; Platelet Count 172 k/uL (150-450); RBC 5.07 m/uL (4.30-5.90); WBC 8.5 k/uL (3.8-10.6)
[2018-12-05 14:32] LABS: Albumin 5.1 g/dL (3.5-5.0); Calcium 9.9 mg/dL (8.4-10.2); Total Bilirubin 0.8 mg/dL (0.2-1.3); Total Protein 8.3 g/dL (6.3-8.2)
[2018-12-05 14:41] LABS: Potassium 6.6 mmol/L (3.5-5.1)
[2018-12-05] MEDS ORDERED: INSULIN REGULAR 100 UNIT/ML VIAL IV ONE (14:57)
[2018-12-05] MEDS ORDERED: DEXTROSE 50% SYRINGE 50 ML IVP STA (14:58)
[2018-12-05] MEDS ORDERED: CALCIUM GLUCONATE 1 GM in SODIUM CHLORIDE 0.9% 100 ML IVPB ONE (15:15)
[2018-12-05 16:35] LABS: Potassium 4.9 mmol/L (3.5-5.1); Total Bilirubin 0.6 mg/dL (0.2-1.3); Total Protein 6.5 g/dL (6.3-8.2)
[2018-12-05] MEDS ORDERED: NALOXONE 0.4 MG/ML 1 ML VIAL IV PRN (17:58)
[2018-12-06 06:46] LABS: Glucose,Whole Blood 170 mg/dL (75-99)
[2018-12-06 09:40] LABS: Albumin 4.5 g/dL (3.5-5.0); Calcium 9.5 mg/dL (8.4-10.2); Total Bilirubin 0.8 mg/dL (0.2-1.3); Total Protein 7.4 g/dL (6.3-8.2)
[2018-12-06 09:43] LABS: Potassium 5.3 mmol/L (3.5-5.1)
[2018-12-06] MEDS ORDERED: BACLOFEN 10 MG TAB PO PRN (10:57)
[2018-12-06] MEDS ORDERED: DEXTROSE 5%-0.9% NACL 1,000 ML IV SCH (11:45)
[2018-12-06] MEDS: METOPROLOL SUCCINATE (ER) 50 MG TAB.ER.24H PO SCH (11:53)
[2018-12-06] MEDS: DULoxetine HCL 60 MG CAPSULE.DR PO SCH (11:53)
[2018-12-06] MEDS: amLODIPine 5 MG TAB PO SCH (11:53)
[2018-12-06 11:59] LABS: Glucose,Whole Blood 198 mg/dL (75-99)
[2018-12-06] MEDS: INSULIN ASPART (NovoLOG) 100 UNIT/ML VIAL SQ SCH ×3 (12:29→20:51)
[2018-12-06] MEDS: SODIUM BICARBONATE TAB 650 MG TAB PO SCH ×2 (12:30→20:43)
--- NOTE | 2018-12-06 14:03 | P.HPIM ---
History of Present Illness H&P Date: 12/06/18 Chief Complaint: Vomiting This is a 68-year-old male patient of with past medical history of ulcerative colitis with ileostomy, CVA in 2015 and TIA in 2018, diabetes mellitus type 2, benign prostatic hypertrophy, nephrolithiasis, hypertension, hyperlipidemia. The patient states that he was in the [place] for 5 days and was feeling fine while he was there. On his first night there, he did use local water brushes teeth but denies any other local water exposure. He returned to the [place] on Monday evening and started having vomiting. H e denies that any other traveler's have been sick. He does have chronic liquid stool from the ileostomy which did not seem to change. He denies any blood in his stools. He came into [facility] emergency center for evaluation. He was found to have a BUN of 43 creatinine of 1.93. Baseline creatinine is at 1. CBC was within normal limits. Sodium 131, potassium 6.6, chloride 103 and CO2 17. Repeat lab work this morning reveals a sodium of 136, potassium 5.3, chloride 108, CO2 14, BUN 35 and creatinine 1.45. Blood sugars up and running anywhere from 136-207. C. difficile toxin was negative. Patient is status post 50% dextrose, regular insulin and calcium gluconate. He has received 2 L of IV fluids in the emergency center. Patient was placed on the observation unit and we have requested consult with nephrology. Patient states at the time of this evaluation he is feeling well and vomiting has resolved. Review of Systems Constitutional: Reports fatigue, Reports malaise, Reports weakness, Denies anorexia, Denies chills, Denies fever, Denies poor appetite Ears, nose, mouth and throat: Denies dysphagia, Denies headache, Denies sore throat, Denies vertigo Cardiovascular: Denies chest pain, Denies decreased exercise tolerance, Denies dyspnea on exertion, Denies edema, Denies leg edema, Denies lightheadedness, Denies palpitations, Denies shortness of breath, Denies syncope Respiratory: Denies cough, Denies cough with sputum, Denies dyspnea, Denies excessive sputum, Denies hemoptysis, Denies home oxygen, Denies respiratory infections Gastrointestinal: Reports vomiting, Denies abdominal pain, Denies constipation, Denies diarrhea, Denies loss of appetite, Denies nausea Genitourinary: Denies dysuria, Denies urinary retention Musculoskeletal: Denies frequent falls, Denies gait dysfunction, Denies muscle weakness, Denies myalgias Integumentary: Denies pruritus, Denies rash, Denies wounds Neurological: Denies aphasia, Denies change in mentation, Denies change in speech, Denies numbness, Denies seizures, Denies weakness Psychiatric: Denies anxiety, Denies depression Endocrine: Denies fatigue, Denies weight change Past Medical History Past Medical History: CVA/TIA, Diabetes Mellitus, Eye Disorder, Hearing Disorder / Deafness, Hyperlipidemia, Hypertension, Prostate Disorder Additional Past Medical History / Comment(s): 05/2015 CVA and 08/2017, continues to have occasional balance issues. BLOOD IN STOOL ON/OFF., Ulcerative Colitis, hx kidney stone. BPH. illeostomy placed March 19, 2018 History of Any Multi-Drug Resistant Organisms: None Reported Past Surgical History: Appendectomy, Bowel Resection, Hernia Repair, Joint Replacement Additional Past Surgical History / Comment(s): APPENDEX RUPTURE, HAD J pouch. Left partial knee replacement. 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 HE WAS INSTRUCTED TO NOT RECEIVE NITROUS OXIDE OR RIDE IN A PLANE UNTIL GAS BUBBLE IS GONE. Smoking Status: Former smoker Additional Past Alcohol Use History / Comment(s): Patient was a smoker greater than 1 pack per day for only 3 years and quit in 1974. No illicit drug use. Patient lives at home with his . - Past Family History Mother Family Medical History: Cancer, Diabetes Mellitus Additional Family Medical History / Comment(s): Mother at age 84 from COLON [place] Father Additional Family Medical History / Comment(s): Father is with history of coronary artery disease. Patient has 4 children that are healthy with no umer or medical problems. Brother(s) Additional Family Medical History / Comment(s): Patient has 4 brothers. Two at the age of 44 from coronary artery disease with history of tobacco use and alcohol dependence. One from aneurysm in the chest. Medications and Allergies Home Medications Medication Instructions Recorded Confirmed Type Atorvastatin [Lipitor] 40 mg PO HS 08/28/17 06/26/19 History DULoxetine HCL [Cymbalta] 60 mg PO DAILY 02/06/17 12/05/18 History Finasteride [Proscar] 5 mg PO DAILY 02/06/17 12/05/18 History Linagliptin [Tradjenta] 5 mg PO DAILY 02/06/17 12/05/18 History Multivit-Min/FA/Lycopen/Lutein 1 cap PO DAILY 02/06/17 12/05/18 History [Centrum Silver Men Tablet] Tamsulosin [Flomax] 0.4 mg PO HS 02/06/17 12/05/18 History Trospium Chloride [Sanctura] 20 mg PO BID 02/06/17 12/05/18 History Diphenox-Atrop 2.5-0.025 mg 1 tab PO BID 07/20/17 12/05/18 History [Lomotil] Cholecalciferol [Vitamin D3 (25 5,000 unit PO DAILY 11/19/17 12/05/18 History Mcg = 1000 Iu)] Ferrous Sulfate [Iron (65 MG 65 mg PO HS 12/18/17 12/05/18 History Elemental)] Baclofen [Lioresal] 10 mg PO QID PRN 12/05/18 12/05/18 History Celecoxib [CeleBREX] 200 mg PO DAILY 12/05/18 12/05/18 History Losartan [Cozaar] 25 mg PO DAILY 12/05/18 12/05/18 History Metoprolol Succinate (ER) [Toprol 50 mg PO DAILY 12/05/18 12/05/18 History Xl] Omeprazole 20 mg PO DAILY 12/05/18 12/05/18 History amLODIPine [Norvasc] 5 mg PO DAILY 12/05/18 12/05/18 History Allergies Allergy/AdvReac Type Severity Reaction Status Date / Time codeine Allergy Rash/Hives Verified 12/05/18 21:39 morphine Allergy Rash/Hives Verified 12/05/18 21:39 Physical Exam Vitals: Vital Signs Temp Pulse Pulse Resp BP BP BP 12/06/18 07:35 97.4 F L 87 18 96/67 12/06/18 03:10 16 12/05/18 23:58 16 12/05/18 23:57 98.1 F 108 H 15 108/70 12/05/18 20:59 98.9 F 104 H 18 115/77 12/05/18 20:00 98.0 F 65 18 107/68 12/05/18 18:53 101 H 18 115/80 12/05/18 17:19 72 18 98/67 12/05/18 15:24 103 H 18 107/52 12/05/18 15:02 110 H 20 99/62 12/05/18 13:09 98.5 F 119 H 18 92/65 Pulse Ox 12/06/18 07:35 97 12/06/18 03:10 12/05/18 23:58 12/05/18 23:57 98 12/05/18 20:59 98 12/05/18 20:00 95 12/05/18 18:53 97 12/05/18 17:19 99 12/05/18 15:24 97 12/05/18 15:02 92 L 12/05/18 13:09 99 Intake and Output 12/05/18 12/06/18 12/06/18 22:59 06:59 14:59 Intake Total 240 Balance 240 Intake: Oral 240 Other: # Voids 1 General appearance: average body habitus - EENT Eyes: PERRLA, no poor dentition, normal appearance - Neck Neck: no lymphadenopathy, normal ROM, no rigidity, no stridor, no thyromegaly - Respiratory Respiratory: bilateral: CTA, negative: diminished, dullness, rales, rhonchi, wheezing, prolonged expiration, prolonged inspiration - Cardiovascular Heart sounds: normal: S1, S2 - Gastrointestinal General gastrointestinal: no absent bowel sounds, no decreased bowel sounds, no distended, no hepatomegaly, no hyperactive bowel sounds, normal bowel sounds, no organomegaly, no rigid, soft, no splenomegaly, no tenderness, ileostomy in place - Integumentary Integumentary: no ulcer, no rash - Neurologic Neurologic: CNII-XII intact - Musculoskeletal Musculoskeletal: gait normal, no generalized weakness, strength equal bilaterally - Psychiatric Psychiatric: A&O x's 3, appropriate affect, intact judgment & insight Results CBC & Chem 7: 12/05/18 14:00 12/06/18 08:17 Labs: Abnormal Lab Results - Last 24 Hours (Table) 06/26/19 06/26/19 06/27/19 Range/Units 14:00 16:13 06:43 Sodium 131 L 133 L (137-145) mmol/L Potassium 6.6 H* (3.5-5.1) mmol/L Chloride 109 H (98-107) mmol/L Carbon Dioxide 11 L 14 L (22-30) mmol/L BUN 43 H 40 H (9-20) mg/dL Creatinine 1.93 H 1.54 H (0.66-1.25) mg/dL Glucose 207 H 136 H (74-99) mg/dL POC Glucose (mg/dL) 170 H (75-99) mg/dL AST (17-59) U/L Total Protein 8.3 H (6.3-8.2) g/dL Albumin 5.1 H (3.5-5.0) g/dL 12/06/18 Range/Units 08:17 Sodium 136 L (137-145) mmol/L Potassium 5.3 H (3.5-5.1) mmol/L Chloride 108 H (98-107) mmol/L Carbon Dioxide 14 L (22-30) mmol/L BUN 35 H (9-20) mg/dL Creatinine 1.45 H (0.66-1.25) mg/dL Glucose 169 H (74-99) mg/dL POC Glucose (mg/dL) (75-99) mg/dL AST 60 H (17-59) U/L Total Protein (6.3-8.2) g/dL Albumin (3.5-5.0) g/dL Microbiology - Last 24 Hours (Table) 12/05/18 20:45 Stool Culture - Preliminary Stool Thrombosis Risk Factor Assmnt - DVT/VTE Prophylaxis DVT/VTE Prophylaxis: Pharmacologic Prophylaxis ordered - Choose All That Apply Each Risk Factor Represents 2 Points: Age 61-74 years Thrombosis Risk Factor Assessment Total Risk Factor Score: 2 Thrombosis Risk Factor Assessment Level: Low Risk Assessment and Plan Plan: 1. Acute kidney injury secondary to vomiting and poor oral intake. Continue IV fluids changed to D5 normal saline at 100 mL per hour. Hold losartan, Celebrex and Sanctura. Consult with nephrology. 2. Vomiting secondary to gastroenteritis, resolved. Continue IV fluids. 3. Ulcerative colitis under the care of Dr. Webb and [facility]. Patient is status post ileostomy 4. Benign prostatic hypertrophy. Continue finasteride 5 mg daily and Flomax 0.4 mg daily. 5. Diabetes mellitus type 2. Continue Tradjenta 5mg daily and continue Humalog scale before meals and at bedtime. 6. Hyperlipidemia. Continue atorvastatin daily. 7. Hypertension. Continue Toprol-XL 50 mg daily, Norvasc 5 mg daily. Losartan on hold. 8. Recurrent depression. Continue Cymbalta 60 mg daily. 9. History of CVA and TIA. Continue Lipitor 40 mg at bedtime for secondary prevention. 10. Gastric intestinal prophylaxis. Protonix. 11. DVT prophylaxis. Early ambulation, SCDs and BRADEN hose Patient will be admitted to the hospital for a minimum of 2 night stay. Discharge plan: Return home Impression and plan of care have been directed as dictated by the signing physician. Azucena Goode nurse practitioner acting as scribe for signing physician.
--- NOTE | 2018-12-06 15:47 | P.NPCON ---
History of Present Illness - Reason for Consult acute renal failure - History of Present Illness Reason for consultation: Acute kidney injury History of present illness: Patient is a 68-year-old male seen in renal consultation for acute kidney injury. His baseline creatinine is 1 and was elevated at 1.93 on admission yesterday. Patient is maintained on IV fluids to D5 normal saline running at 100 mL an hour. Patient was noted to be quite acidotic with a bicarb level of 11 and also hyperkalemic with a potassium level of 6.6 on admission. This was medically treated and potassium level subsequently normalized. He remains acidotic with a bicarbonate level of 14. Patient presented to the hospital with nausea and vomiting. Patient also has history of ulcerative colitis and has an ileostomy which was placed March 2018. Patient states he returned from [facility] last Monday. Since then he's developed nausea and vomiting and decided to come to the hospital. Patient denies sick contacts. He denies hematuria or dysuria. C. diff has been negative. Overall he started to feel better and is now tolerating oral intake. No significant abdominal pain. He does take Celebrex on a daily basis. Denies family history of renal disease. Hemodynamically stable. Patient was seen and examined in the observation unit. Vital signs are stable. General: The patient appeared well nourished and normally developed. HEENT: Head exam is unremarkable. Neck is without jugular venous distension. LUNGS: Lungs are clear to auscultation and percussion. Breath sounds decreased. HEART: Rate and Rhythm are regular. First and second heart sounds normal. No murmurs, rubs or gallops. ABDOMEN: Abdominal exam reveals normal bowel sounds. Non-tender and non- distended. No evidence of peritonitis. EXTREMITITES: No clubbing, cyanosis, or edema. Past Medical History Past Medical History: CVA/TIA, Diabetes Mellitus, Eye Disorder, Hearing Disorder / Deafness, Hyperlipidemia, Hypertension, Prostate Disorder Additional Past Medical History / Comment(s): 05/2015 CVA and 08/2017, continues to have occasional balance issues. BLOOD IN STOOL ON/OFF., Ulcerative Colitis, hx kidney stone. BPH. illeostomy placed March 19, 2018 History of Any Multi-Drug Resistant Organisms: None Reported Past Surgical History: Appendectomy, Bowel Resection, Hernia Repair, Joint Replacement Additional Past Surgical History / Comment(s): APPENDEX RUPTURE, HAD J pouch. Left partial knee replacement. 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 HE WAS INSTRUCTED TO NOT RECEIVE NITROUS OXIDE OR RIDE IN A PLANE UNTIL GAS BUBBLE IS GONE. Smoking Status: Former smoker Additional Past Alcohol Use History / Comment(s): Patient was a smoker greater than 1 pack per day for only 3 years and quit in 1974. No illicit drug use. Patient lives at home with his . - Past Family History Mother Family Medical History: Cancer, Diabetes Mellitus Additional Family Medical History / Comment(s): Mother at age 84 from [place] Father Additional Family Medical History / Comment(s): Father is with history of coronary artery disease. Patient has 4 children that are healthy with no major medical problems. Brother(s) Additional Family Medical History / Comment(s): Patient has 4 brothers. Two at the age of 44 from coronary artery disease with history of tobacco use and alcohol dependence. One from aneurysm in the chest. Medications and Allergies Home Medications Medication Instructions Recorded Confirmed Type Atorvastatin [Lipitor] 40 mg PO HS 02/06/17 12/05/18 History DULoxetine HCL [Cymbalta] 60 mg PO DAILY 02/06/17 12/05/18 History Finasteride [Proscar] 5 mg PO DAILY 02/06/17 12/05/18 History Linagliptin [Tradjenta] 5 mg PO DAILY 02/06/17 12/05/18 History Multivit-Min/FA/Lycopen/Lutein 1 cap PO DAILY 02/06/17 12/05/18 History [Centrum Silver Men Tablet] Tamsulosin [Flomax] 0.4 mg PO HS 02/06/17 12/05/18 History Trospium Chloride [Sanctura] 20 mg PO BID 02/06/17 12/05/18 History Diphenox-Atrop 2.5-0.025 mg 1 tab PO BID 07/20/17 12/05/18 History [Lomotil] Cholecalciferol [Vitamin D3 (25 5,000 unit PO DAILY 11/19/17 12/05/18 History Mcg = 1000 Iu)] Ferrous Sulfate [Iron (65 MG 65 mg PO HS 12/18/17 12/05/18 History Elemental)] Baclofen [Lioresal] 10 mg PO QID PRN 12/05/18 12/05/18 History Celecoxib [CeleBREX] 200 mg PO DAILY 12/05/18 12/05/18 History Losartan [Cozaar] 25 mg PO DAILY 12/05/18 12/05/18 History Metoprolol Succinate (ER) [Toprol 50 mg PO DAILY 12/05/18 12/05/18 History Xl] Omeprazole 20 mg PO DAILY 12/05/18 12/05/18 History amLODIPine [Norvasc] 5 mg PO DAILY 12/05/18 12/05/18 History Allergies Allergy/AdvReac Type Severity Reaction Status Date / Time codeine Allergy Rash/Hives Verified 12/05/18 21:39 morphine Allergy Rash/Hives Verified 12/05/18 21:39 Physical Exam Vitals: Vital Signs Temp Pulse Pulse Resp BP BP BP 12/06/18 07:35 97.4 F L 87 18 96/67 12/06/18 03:10 16 12/05/18 23:58 16 12/05/18 23:57 98.1 F 108 H 15 108/70 12/05/18 20:59 98.9 F 104 H 18 115/77 12/05/18 20:00 98.0 F 65 18 107/68 12/05/18 18:53 101 H 18 115/80 12/05/18 17:19 72 18 98/67 Pulse Ox 12/06/18 07:35 97 12/06/18 03:10 12/05/18 23:58 12/05/18 23:57 98 12/05/18 20:59 98 12/05/18 20:00 95 12/05/18 18:53 97 12/05/18 17:19 99 Intake and Output 12/06/18 12/06/18 12/06/18 06:59 14:59 22:59 Intake Total 440 Balance 440 Intake: Oral 240 Other 200 Other: # Voids 1 Results - Lab Results Most recent lab results Calcium 9.5 mg/dL (8.4-10.2) 12/06/18 08:17 12/05/18 14:00 12/06/18 08:17 Assessment and Plan Plan: Assessment: 1. Acute kidney injury mostly prerenal secondary to intravascular volume depletion from vomiting and further worsened with the use of nonsteroidals. Creatinine 1.93 on admission and is down to 1.45 today. Baseline creatinine near 1. 2. Nausea and vomiting. Possibly related to food poisoning versus just enteri tis. C. diff negative. 3. Metabolic acidosis secondary to acute kidney injury and GI losses. 4. Hyperkalemia secondary to acute kidney injury, metabolic acidosis and further worsened with the use of nonsteroidals as well as losartan. 5. Benign hypertension. Currently blood pressures are on the lower end. 6. History of ulcerative colitis status post ileostomy. Plan: I will change IV fluids to isotonic sodium bicarbonate drip to be run at 100 mL an hour. Check urinalysis. Hold antihypertensives for systolic blood pressure less than 120. Repeat electrolytes in the morning. Follow-up cultures. Thank you for the consultation. I will continue to follow the patient with you during his hospital stay.
[2018-12-06 17:08] LABS: Glucose,Whole Blood 163 mg/dL (75-99)
[2018-12-06] MEDS: DEXTROSE 5% IN WATER 1,000 ML with SODIUM BICARB (1 MEQ/ML) 150 ML IV SCH (17:54)
[2018-12-06 20:52] LABS: Glucose,Whole Blood 160 mg/dL (75-99)
[2018-12-06] MEDS ORDERED: ATORVASTATIN 40 MG TAB PO SCH (21:00)
[2018-12-06] MEDS ORDERED: TAMSULOSIN 0.4 MG CAP.ER.24H PO SCH (21:00)
[2018-12-06] MEDS ORDERED: FERROUS SULFATE 325 MG TAB PO SCH (21:00)
[2018-12-07] MEDS: DEXTROSE 5% IN WATER 1,000 ML with SODIUM BICARB (1 MEQ/ML) 150 ML IV SCH (01:19)
[2018-12-07 07:11] LABS: Glucose,Whole Blood 203 mg/dL (75-99)
[2018-12-07] MEDS ORDERED: PANTOPRAZOLE 40 MG TABLET PO SCH (07:30)
--- NOTE | 2018-12-07 07:59 | P.PN ---
Subjective Patient is seen in follow-up for acute kidney injury. Creatinine was 1.93 on admission and was down to 1.45 as of yesterday. Patient presented with nausea and vomiting after returning from [facility] 3 days ago. Patient states output from the ileostomy is more formed. He also denies any vomiting. Oral intake is good. Vital signs are stable. General: The patient appeared well nourished and normally developed. HEENT: Head exam is unremarkable. Neck is without jugular venous distension. LUNGS: Lungs are clear to auscultation and percussion. Breath sounds decreased. HEART: Rate and Rhythm are regular. First and second heart sounds normal. No murmurs, rubs or gallops. ABDOMEN: Abdominal exam reveals normal bowel sounds. Non-tender and non- distended. No evidence of peritonitis. EXTREMITITES: No clubbing, cyanosis, or edema. Objective - Vital Signs Vital signs: Vital Signs Temp 98.6 F 12/06/18 23:41 Pulse 89 12/06/18 23:41 Resp 18 12/07/18 03:15 BP 98/65 12/06/18 23:41 Pulse Ox 94 L 12/06/18 23:41 Intake & Output 12/06/18 12/07/18 12/07/18 18:59 06:59 18:59 Intake Total 860 Output Total 225 Balance 635 Intake: Oral 660 Other 200 Output: Urine 225 Other: # Voids 2 - Labs CBC & Chem 7: 12/05/18 14:00 12/06/18 08:17 Labs: Abnormal Lab Results - Last 24 Hours (Table) 12/06/18 12/06/18 12/06/18 Range/Units 08:17 11:47 16:32 Sodium 136 L (137-145) mmol/L Potassium 5.3 H (3.5-5.1) mmol/L Chloride 108 H (98-107) mmol/L Carbon Dioxide 14 L (22-30) mmol/L BUN 35 H (9-20) mg/dL Creatinine 1.45 H (0.66-1.25) mg/dL Glucose 169 H (74-99) mg/dL POC Glucose (mg/dL) 198 H 163 H (75-99) mg/dL AST 60 H (17-59) U/L 06/27/19 06/28/19 Range/Units 20:49 07:09 Sodium (137-145) mmol/L Potassium (3.5-5.1) mmol/L Chloride (98-107) mmol/L Carbon Dioxide (22-30) mmol/L BUN (9-20) mg/dL Creatinine (0.66-1.25) mg/dL Glucose (74-99) mg/dL POC Glucose (mg/dL) 160 H 203 H (75-99) mg/dL AST (17-59) U/L Assessment and Plan Plan: Assessment: 1. Acute kidney injury mostly prerenal secondary to intravascular volume depletion from vomiting and further worsened with the use of nonsteroidals. Creatinine 1.93 on admission and is down to 1.45 as of yesterday. Baseline creatinine near 1. 2. Nausea and vomiting. Possibly related to food poisoning versus viral gastroenteritis. C. diff negative. 3. Metabolic acidosis secondary to acute kidney injury and GI losses. 4. Hyperkalemia secondary to acute kidney injury, metabolic acidosis and further worsened with the use of nonsteroidals as well as losartan. Improved with medical management. 5. Benign hypertension. Currently blood pressures are on the lower end. 6. History of ulcerative colitis status post ileostomy. Plan: Maintain isotonic sodium bicarbonate drip at 100 mL an hour. Follow-up urinalysis. Hold antihypertensives for systolic blood pressure less than 120. If renal function is improved today, he can be discharged home from nephrology standpoint. Follow up outpatient in the next 2 weeks.
[2018-12-07 08:03] VITALS: BP 122/84; PULSE 101; RESP 16; TEMP 98.3
[2018-12-07] MEDS: DULoxetine HCL 60 MG CAPSULE.DR PO SCH (08:22)
[2018-12-07] MEDS: METOPROLOL SUCCINATE (ER) 50 MG TAB.ER.24H PO SCH (08:22)
[2018-12-07] MEDS: amLODIPine 5 MG TAB PO SCH (08:22)
[2018-12-07] MEDS: INSULIN ASPART (NovoLOG) 100 UNIT/ML VIAL SQ SCH (08:22)
[2018-12-07] MEDS: SODIUM BICARBONATE TAB 650 MG TAB PO SCH (08:23)
[2018-12-07 08:26] LABS: Magnesium 1.9 mg/dL (1.6-2.3); Potassium 4.3 mmol/L (3.5-5.1)
[2018-12-07] MEDS ORDERED: LINAGLIPTIN 5 MG TABLET PO SCH (09:00)
[2018-12-07] MEDS ORDERED: MULTIVITAMINS, THERA 1 EACH TAB PO SCH (09:00)
[2018-12-07] MEDS ORDERED: FINASTERIDE 5 MG TAB PO SCH (09:00)
[2018-12-07] MEDS ORDERED: SODIUM CHLORIDE 0.9% 1,000 ML IV SCH (10:00)
[2018-12-07 10:25] LABS: Appearance,Urine Clear (Clear); Bilirubin,Urine Negative (Negative); Blood,Urine Negative (Negative); Color,Urine Light Yellow; Glucose,Urine (UA) Trace (Negative); Ketones,Urine Negative (Negative); Leukocyte Esterase,Urine Negative (Negative); Nitrite,Urine Negative (Negative); Protein,Urine Negative (Negative); Specific Gravity,Urine 1.009 (1.001-1.035); Urobilinogen,Urine <2.0 mg/dL (<2.0)
--- NOTE | 2018-12-07 13:01 | P.DS ---
Providers Date of admission: 12/06/18 13:34 Expected date of discharge: 12/07/18 Attending physician: Miguel Bautista Consults: 12/06/18 11:31 Consult Physician Routine Consulting Provider: Roby Vogt Consult Reason/Comments: DOM Do you want consulting provider notified?: Yes Primary care physician: [facility] Course: This is a 68-year-old male patient of with past medical history of ulcerative colitis with ileostomy, CVA in 2015 and TIA in 2018, diabetes mellitus type 2, benign prostatic hypertrophy, nephrolithiasis, hypertension, hyperlipidemia. The patient states that he was in the [place] for 5 days and was feeling fine while he was there. On his first night there, he did use local water brushes teeth but denies any other local water exposure. He returned to the [place] on Monday evening and started having vomiting. He denies that any other traveler's have been sick. He does have chronic liquid stool from the ileostomy which did not seem to change. He denies any blood in his stools. He came into [facility] emergency center for evaluation. He was found to have a BUN of 43 creatinine of 1.93. Baseline creatinine is at 1. CBC was within normal limits. Sodium 131, potassium 6.6, chloride 103 and CO2 17. Repeat lab work this morning reveals a sodium of 136, potassium 5.3, chloride 108, CO2 14, BUN 35 and creatinine 1.45. Blood sugars up and running anywhere from 136-207. C. difficile toxin was negative. Patient is status post 50% dextrose, regular insulin and calcium gluconate. He has received 2 L of IV fluids in the emergency center. Patient was placed on the observation unit and we have requested consult with nephrology. Patient states at the time of this evaluation he is feeling well and vomiting has resolved. 12/07: The patient was seen by Dr. Vogt and initially placed on bicarb drip which has been transitioned to normal saline. He has been cleared for discharge home. Repeat labs this morning reveal BUN of 26 and creatinine 1.15. Blood sugars are running between 160 and 271, urinalysis was clear with trace glucose, magnesium 1.9. Patient will be discharged home today in stable condition. Discharge diagnoses: 1. Acute kidney injury secondary to vomiting and poor oral intake. 2. Vomiting secondary to gastroenteritis, resolved. 3. Ulcerative colitis under the care of Dr. Webb and [facility]. Patient is status post ileostomy 4. Benign prostatic hypertrophy. 5. Diabetes mellitus type 2. 6. Hyperlipidemia. 7. Hypertension. 8. Recurrent depression. 9. History of CVA and TIA. Discharge plan: Return home Impression and plan of care have been directed as dictated by the signing physician. Azucena Goode nurse practitioner acting as scribe for signing physician. Patient Condition at Discharge: Good Plan - Discharge Summary New Discharge Prescriptions: New Sodium Bicarbonate Tab 650 mg PO BID #60 tab Continue Multivit-Min/FA/Lycopen/Lutein [Centrum Silver Men Tablet] 1 cap PO DAILY DULoxetine HCL [Cymbalta] 60 mg PO DAILY Trospium Chloride [Sanctura] 20 mg PO BID Tamsulosin [Flomax] 0.4 mg PO HS Finasteride [Proscar] 5 mg PO DAILY Linagliptin [Tradjenta] 5 mg PO DAILY Atorvastatin [Lipitor] 40 mg PO HS Diphenox-Atrop 2.5-0.025 mg [Lomotil] 1 tab PO BID Cholecalciferol [Vitamin D3 (25 Mcg = 1000 Iu)] 5,000 unit PO DAILY Ferrous Sulfate [Iron (65 MG Elemental)] 65 mg PO HS amLODIPine [Norvasc] 5 mg PO DAILY Baclofen [Lioresal] 10 mg PO QID PRN PRN Reason: Muscle Spasm Metoprolol Succinate (ER) [Toprol XL] 50 mg PO DAILY Omeprazole 20 mg PO DAILY Discontinued Celecoxib [CeleBREX] 200 mg PO DAILY Losartan [Cozaar] 25 mg PO DAILY Discharge Medication List Atorvastatin [Lipitor] 40 mg PO HS 02/06/17 [History] DULoxetine HCL [Cymbalta] 60 mg PO DAILY 02/06/17 [History] Finasteride [Proscar] 5 mg PO DAILY 02/06/17 [History] Linagliptin [Tradjenta] 5 mg PO DAILY 02/06/17 [History] Multivit-Min/FA/Lycopen/Lutein [Centrum Silver Men Tablet] 1 cap PO DAILY 02/06/17 [History] Tamsulosin [Flomax] 0.4 mg PO HS 02/06/17 [History] Trospium Chloride [Sanctura] 20 mg PO BID 02/06/17 [History] Diphenox-Atrop 2.5-0.025 mg [Lomotil] 1 tab PO BID 07/20/17 [History] Cholecalciferol [Vitamin D3 (25 Mcg = 1000 Iu)] 5,000 unit PO DAILY 11/19/17 [History] Ferrous Sulfate [Iron (65 MG Elemental)] 65 mg PO HS 12/18/17 [History] Baclofen [Lioresal] 10 mg PO QID PRN 12/05/18 [History] Metoprolol Succinate (ER) [Toprol XL] 50 mg PO DAILY 12/05/18 [History] Omeprazole 20 mg PO DAILY 12/05/18 [History] amLODIPine [Norvasc] 5 mg PO DAILY 12/05/18 [History] Sodium Bicarbonate Tab 650 mg PO BID #60 tab 12/07/18 [Rx] Follow up Appointment(s)/Referral(s): Miguel Bautista MD [Primary Care Provider] - 1 Week Roby Vogt DO [STAFF PHYSICIAN] - 1 Week Patient Instructions/Handouts: Acute Kidney Injury (DC), Acute Nausea and Vomiting (ED) Discharge Disposition: HOME SELF-CARE
== END 2018-12-07 12:10 | disposition home or self-care (01) | DRG 683 ==
LOC: EC 13:05 → 1SOBS 18:21 → OBSVTOIN 12-06 13:34
PROVIDERS: ADMIT Internal Medicine Geriatric Medicine; ATTEND Internal Medicine Geriatric Medicine
DX: N17.9 Acute kidney failure, unspecified (principal); K51.90 Ulcerative colitis, unspecified, without complications; E87.2 Acidosis; F33.9 Major depressive disorder, recurrent, unspecified; I10 Essential (primary) hypertension; K52.9 Noninfective gastroenteritis and colitis, unspecified; H91.90 Unspecified hearing loss, unspecified ear; E78.5 Hyperlipidemia, unspecified; E11.9 Type 2 diabetes mellitus without complications; N42.9 Disorder of prostate, unspecified; E86.9 Volume depletion, unspecified; Z96.652 Presence of left artificial knee joint; Z96.1 Presence of intraocular lens; N40.0 Benign prostatic hyperplasia without lower urinary tract symptoms; E87.5 Hyperkalemia; T39.395A Adverse effect of other nonsteroidal anti-inflammatory drugs [NSAID], initial encounter; Z93.2 Ileostomy status; Z87.442 Personal history of urinary calculi; Z79.1 Long term (current) use of non-steroidal anti-inflammatories (NSAID); Z79.84 Long term (current) use of oral hypoglycemic drugs; Z79.899 Other long term (current) drug therapy; Z88.5 Allergy status to narcotic agent; Z90.49 Acquired absence of other specified parts of digestive tract; Z87.891 Personal history of nicotine dependence; Z86.73 Personal history of transient ischemic attack (TIA), and cerebral infarction without residual deficits; Z98.890 Other specified postprocedural states; Z98.42 Cataract extraction status, left eye; Z98.41 Cataract extraction status, right eye; Z83.3 Family history of diabetes mellitus; Z80.0 Family history of malignant neoplasm of digestive organs; Z82.49 Family history of ischemic heart disease and other diseases of the circulatory system
CPT/HCPCS: 36415; 80048; 80053; 81003; 83735; 85027; 87045; 87046; 87324; 96361; 96365; 96366; 96375; 99285

== ENCOUNTER → 2019-04-16 | Outpatient (CLI) | payer MEDICARE, OTHER ==
[2019-04-16 12:59] LABS: Appearance,Urine Clear (Clear); Bilirubin,Urine Negative (Negative); Blood,Urine Negative (Negative); Color,Urine Yellow; Glucose,Urine (UA) Negative (Negative); Ketones,Urine Negative (Negative); Leukocyte Esterase,Urine Negative (Negative); Nitrite,Urine Negative (Negative); PH, Urine 5.5 (5.0-8.0); Protein,Urine Trace (Negative); Specific Gravity,Urine 1.022 (1.001-1.035); Urobilinogen,Urine <2.0 mg/dL (<2.0)
[2019-04-16 13:42] LABS: HCT 44.2 % (39.0-53.0); HGB 14.8 gm/dL (13.0-17.5); MCH 31.2 pg (25.0-35.0); MCHC 33.6 g/dL (31.0-37.0); Mean Platelet Volume 9.8; Platelet Count 158 k/uL (150-450); RBC 4.75 m/uL (4.30-5.90); WBC 6.6 k/uL (3.8-10.6)
[2019-04-16 20:18] LABS: % Iron Saturation 27.78 (15.00-50.00); African American GFR (CKD) 58.6 (60.0-200.0); Albumin 5.2 g/dL (3.80-4.90); Albumin/Globulin Ratio 2.74 (1.60-3.17); Anion Gap 11.9 mmol/L (4.00-12.00); BUN/Creat Ratio 17.86 Ratio (12.00-20.00); Calcium 9.7 mg/dL (8.7-10.3); Carbon Dioxide 16.1 mmol/L (21.6-31.8); Globulin 1.9 g/dL (1.6-3.3); Magnesium 2.3 mg/dL (1.5-2.4); Phosphorus 3.6 mg/dL (2.4-5.1); Potassium 5.2 mmol/L (3.5-5.5); Total Bilirubin 0.6 mg/dL (0.3-1.2); Total Protein 7.1 g/dL (6.2-8.2); Uric Acid 8.7 mg/dL (3.7-8.7)
== END | disposition home or self-care (01) ==
LOC: LABWHC1 11:32
PROVIDERS: ATTEND Internal Medicine
DX: N17.9 Acute kidney failure, unspecified (principal); N18.9 Chronic kidney disease, unspecified; D63.1 Anemia in chronic kidney disease; N39.0 Urinary tract infection, site not specified; N25.81 Secondary hyperparathyroidism of renal origin; E55.9 Vitamin D deficiency, unspecified; M10.9 Gout, unspecified
CPT/HCPCS: 36415; 80053; 81003; 82043; 82570; 82728; 83540; 83550; 83735; 83970; 84100; 84550; 85027

== ENCOUNTER → 2020-03-11 | Outpatient (CLI) | payer MEDICARE, OTHER ==
[2020-03-11 10:17] LABS: Basophils % (A) 0 %; Eosinophils # (A) 0.2 k/uL (0-0.7); Eosinophils % (A) 3 %; HCT 43.9 % (39.0-53.0); HGB 14.5 gm/dL (13.0-17.5); Lymphocytes # (A) 1.2 k/uL (1.0-4.8); Lymphocytes % (A) 20 %; MCH 29.7 pg (25.0-35.0); Mean Platelet Volume 10.7; Monocytes # (A) 0.5 k/uL (0-1.0); Monocytes % (A) 8 %; Neutrophils # (A) 3.9 k/uL (1.3-7.7); Neutrophils % (A) 66 %; Platelet Count 124 k/uL (150-450); RBC 4.88 m/uL (4.30-5.90); WBC 5.9 k/uL (3.8-10.6)
[2020-03-11 22:21] LABS: African American GFR (CKD) 70.1 (60.0-200.0); Albumin 4.7 g/dL (3.80-4.90); Albumin/Globulin Ratio 2.61 (1.60-3.17); Anion Gap 12.9 mmol/L (4.00-12.00); BUN/Creat Ratio 15.83 Ratio (12.00-20.00); Calcium 9.3 mg/dL (8.7-10.3); Carbon Dioxide 18.1 mmol/L (21.6-31.8); Chol/HDL Ratio 3.47; Globulin 1.8 g/dL (1.6-3.3); LDL Cholesterol,Calculated 26.6 mg/dL (0.0-131.0); Non-African American GFR(CKD) 60.5 (60.0-200.0); Potassium 4.6 mmol/L (3.5-5.5); Total Bilirubin 0.5 mg/dL (0.2-1.2); Total Protein 6.5 g/dL (6.2-8.2); VLDL Calculation 52.4 mg/dL (5.00-40.00)
[2020-03-12 00:17] LABS: Hemoglobin A1C 7.8 % (4.0-6.0)
== END | disposition home or self-care (01) ==
LOC: LABWHC1 08:59
PROVIDERS: ATTEND Internal Medicine Geriatric Medicine
DX: E11.22 Type 2 diabetes mellitus with diabetic chronic kidney disease (principal); N18.9 Chronic kidney disease, unspecified; I48.91 Unspecified atrial fibrillation; I63.9 Cerebral infarction, unspecified; E78.2 Mixed hyperlipidemia; E11.65 Type 2 diabetes mellitus with hyperglycemia
CPT/HCPCS: 36415; 80053; 80061; 83036; 84443; 85025

== ENCOUNTER → 2020-03-13 | Outpatient (CLI) | payer MEDICARE, OTHER ==
--- NOTE | 2020-03-13 10:08 | ECHOF ---
Referral Reason:I48.91 A fib MEASUREMENTS -------- HEIGHT: 182.9 cm WEIGHT: 87.1 kg BP: RVIDd: 4.6 cm (< 3.3) IVSd: 1.7 cm (0.6 - 1.1) LVIDd: 3.7 cm (3.9 - 5.3) LVPWd: 1.9 cm (0.6 - 1.1) IVSs: 1.9 cm LVIDs: 2.7 cm LVPWs: 2.4 cm LAESV Index (A-L): 32.74 ml/m Ao Diam: 3.9 cm (2.0 - 3.7) AV Cusp: 2.0 cm (1.5 - 2.6) MV EXCURSION: 15.228 mm (> 18.000) MV EF SLOPE: 60 mm/s (70 - 150) EPSS: 1.0 cm MV E Cory: 0.87 m/s MV DecT: 150 ms MV A Cory: 1.42 m/s MV E/A Ratio: 0.61 RAP: 5.00 mmHg RVSP: 27.07 mmHg FINDINGS -------- This was a technically adequate study. The left ventricular size is normal. There is moderate concentric left ventricular hypertrophy. O verall left ventricular systolic function is low-normal with, an EF between 50 - 55 %. The right ventricle is mild to moderately enlarged. LA is midly dilated 29-33ml/m2. The right atrial size is normal. Interatrial and interventricular septum intact. The aortic valve is trileaflet and appears structurally normal. Trace amount of aortic regurgitatio n. There is no evidence of aortic stenosis. There is trace to mild mitral regurgitation. Mild tricuspid regurgitation present. There is no evidence of pulmonary hypertension. The right v entricular systolic pressure, as measured by Doppler, is 27.07mmHg. There is no pulmonic regurgitation present. The aortic root size is normal. IVC Not well visulized. There is no pericardial effusion. CONCLUSIONS -------- 1. The left ventricular size is normal. 2. There is moderate concentric left ventricular hypertrophy. 3. Overall left ventricular systolic function is low-normal with, an EF between 50 - 55 %. 4. The right ventricle is mild to moderately enlarged. 5. LA is midly dilated 29-33ml/m2. 6. Trace amount of aortic regurgitation. 7. There is trace to mild mitral regurgitation. 8. Mild tricuspid regurgitation present. [employer]: Kareen Lindsay RDCS
--- NOTE | 2020-03-13 11:29 | US ---
EXAMINATION TYPE: US carotid duplex BILAT DATE OF EXAM: 03/13/2020 COMPARISON: NONE CLINICAL HISTORY: I63.9 Stroke. EXAM MEASUREMENTS: RIGHT: Peak Systolic Velocity (PSV) cm/sec ----- Right CCA: 84.2 ----- Right ICA: 68.1 ----- Right ECA: 62.8 ICA/CCA ratio: 0.8 RIGHT: End Diastole cm/sec ----- Right CCA: 14.9 ----- Right ICA: 17.2 ----- Right ECA: 12.6 LEFT: Peak Systolic Velocity (PSV) cm/sec ----- Left CCA: 60.2 ----- Left ICA: 20.6 ----- Left ECA: 9.1 ICA/CCA ratio: 0.9 LEFT: End Diastole cm/sec ----- Left CCA: 14.8 ----- Left ICA: 20.6 ----- Left ECA: 9.1 VERTEBRALS (direction of flow): Right Vertebral: Antegrade Left Vertebral: Antegrade Rhythm: Normal Grayscale, color Doppler, spectral Doppler imaging performed of the carotid arteries. Waveform analys is does not show significant stenosis of the internal carotid arteries. Mild atherosclerotic changes, bilateral ICA's dive at 90 degree angle. No evidence of significant stenosis. IMPRESSION: No hemodynamic significant stenosis of the proximal internal carotid arteries bilaterall y by Doppler criteria, an indirect measurement of carotid stenosis Criteria for Assigning % of Stenosis / Diameter reduction (Estimation based on the indirect measurements of the internal carotid artery velocities (ICA PSV). 1. Normal (no stenosis)=ICA PSV < 125 cm/s: ratio < 2.0: ICA EDV<40 cm/s. 2. Less than 50% stenosis=ICA PSV < 125 cm/s: ratio < 2.0: ICA EDV<40 cm/s. 3. 50 to 69% stenosis=ICA PSV of 125 to 230 cm/s: ration 2.0 ? 4.0: ICA EDV 40-100 cm/s. 4. Greater than 70% stenosis to near occlusion= ICA PSV > 230 cm/s: ratio > 4.0: ICA EDV > 100 cm/s. 5. Near occlusion= ICA PSV velocities may be low or undetectable: variable ratio and ICA EDV. 6. Total occlusion=unable to detect flow.
== END | disposition home or self-care (01) ==
LOC: RADECHMAIN 08:28
PROVIDERS: ATTEND Internal Medicine Geriatric Medicine
DX: I08.1 Rheumatic disorders of both mitral and tricuspid valves (principal); I63.9 Cerebral infarction, unspecified
CPT/HCPCS: 93306; 93880

== ENCOUNTER → 2020-07-10 | Outpatient (CLI) | payer MEDICARE ==
[2020-07-10 15:12] LABS: Basophils # (A) 0.1 k/uL (0-0.2); Basophils % (A) 1 %; Eosinophils # (A) 0.2 k/uL (0-0.7); Eosinophils % (A) 3 %; HGB 13.9 gm/dL (13.0-17.5); Lymphocytes # (A) 1.5 k/uL (1.0-4.8); Lymphocytes % (A) 20 %; MCHC 33.2 g/dL (31.0-37.0); MCV 90.4 fL (80.0-100.0); Mean Platelet Volume 10.8; Monocytes # (A) 0.5 k/uL (0-1.0); Monocytes % (A) 7 %; Neutrophils # (A) 4.9 k/uL (1.3-7.7); Neutrophils % (A) 66 %; Platelet Count 157 k/uL (150-450); RBC 4.65 m/uL (4.30-5.90); RDW 13.9 % (11.5-15.5); WBC 7.3 k/uL (3.8-10.6)
== END | disposition home or self-care (01) ==
LOC: LABWHC1 13:47
PROVIDERS: ATTEND Internal Medicine Geriatric Medicine
DX: I48.0 Paroxysmal atrial fibrillation (principal)
CPT/HCPCS: 36415; 85025

== ENCOUNTER 2020-08-29 20:24 | Inpatient (IN) | payer MEDICARE, OTHER ==
[2020-08-29] MEDS ORDERED: ONDANSETRON 4 MG/2 ML VIAL IVP STA (20:47)
[2020-08-29] MEDS ORDERED: SODIUM CHLORIDE 0.9% 1,000 ML IV STA (20:47)
--- NOTE | 2020-08-29 20:50 | ED ---
Abdominal Pain HPI - General Chief Complaint: Abdominal Pain Stated Complaint: Bowel Obstruction Time Seen by Provider: 08/29/20 20:38 Source: patient Mode of arrival: ambulatory - History of Present Illness Initial Comments: 70-year-old male with history of ulcerative colitis presents to emergency Department with chief complaint abdominal pain. Patient states he feels like th ere is an abdominal obstruction. Patient has had a small bowel obstruction previously in feels exactly like it. Patient has a colostomy bag which has not been draining since 5:00. Patient reports he ate prior to 5:00. He also reports nausea with some vomiting prior to arrival. He reports mild right-sided abdominal pain. Denies any chest pain back pain shortness of breath. - Related Data Home Medications Medication Instructions Recorded Confirmed Atorvastatin [Lipitor] 40 mg PO HS 02/06/17 12/05/18 DULoxetine HCL [Cymbalta] 60 mg PO DAILY 02/06/17 12/05/18 Finasteride [Proscar] 5 mg PO DAILY 02/06/17 12/05/18 Linagliptin [Tradjenta] 5 mg PO DAILY 02/06/17 12/05/18 Multivit-Min/FA/Lycopen/Lutein 1 cap PO DAILY 02/06/17 12/05/18 [Centrum Silver Men Tablet] Tamsulosin [Flomax] 0.4 mg PO HS 02/06/17 12/05/18 Trospium Chloride [Sanctura] 20 mg PO BID 02/06/17 12/05/18 Diphenox-Atrop 2.5-0.025 mg 1 tab PO BID 07/20/17 12/05/18 [Lomotil] Cholecalciferol [Vitamin D3 (25 5,000 unit PO DAILY 11/19/17 12/05/18 Mcg = 1000 Iu)] Ferrous Sulfate [Iron (65 MG 65 mg PO HS 12/18/17 12/05/18 Elemental)] Baclofen [Lioresal] 10 mg PO QID PRN 12/05/18 12/05/18 Metoprolol Succinate (ER) [Toprol 50 mg PO DAILY 12/05/18 12/05/18 XL] Omeprazole 20 mg PO DAILY 12/05/18 12/05/18 amLODIPine [Norvasc] 5 mg PO DAILY 12/05/18 12/05/18 Previous Rx's Medication Instructions Recorded Sodium Bicarbonate Tab 650 mg PO BID #60 tab 12/07/18 Allergies Allergy/AdvReac Type Severity Reaction Status Date / Time codeine Allergy Rash/Hives Verified 08/29/20 20:34 morphine Allergy Rash/Hives Verified 08/29/20 20:34 Review of Systems ROS Statement: Those systems with pertinent positive or pertinent negative responses have been documented in the HPI. ROS Other: All systems not noted in ROS Statement are negative. Past Medical History Past Medical History: CVA/TIA, Diabetes Mellitus, Eye Disorder, Hearing Disorder / Deafness, Hyperlipidemia, Hypertension, Prostate Disorder Additional Past Medical History / Comment(s): 05/2015 CVA and 08/2017, continues to have occasional balance issues. BLOOD IN STOOL ON/OFF., Ulcerative Colitis, hx kidney stone. BPH. illeostomy placed March 19, 2018 History of Any Multi-Drug Resistant Organisms: None Reported Past Surgical History: Appendectomy, Bowel Resection, Hernia Repair, Joint Replacement Additional Past Surgical History / Comment(s): APPENDEX RUPTURE, HAD J pouch. Left partial knee replacement. COLONOSCOPY, bilateral cataract extraction with lens implants, mesh with hernia repair, exama, Past Anesthesia/Blood Transfusion Reactions: No Reported Reaction Additional Past Anesthesia/Blood Transfusion Reaction / Comment(s): PATIENT HAD SURGERY FOR LEFT EYE DETACHED RETINA AND DEVELOPED GAS BUBBLE IN L EYE. HE WAS INSTRUCTED TO NOT RECEIVE NITROUS OXIDE OR RIDE IN A PLANE UNTIL GAS BUBBLE IS GONE. Past Psychological History: Depression Smoking Status: Never smoker Past Alcohol Use History: Rare Past Drug Use History: None Reported - Past Family History Mother Family Medical History: Cancer, Diabetes Mellitus Additional Family Medical History / Comment(s): Mother at age 84 from [place] Father Additional Family Medical History / Comment(s): Father is with history of coronary artery disease. Patient has 4 children that are healthy with no major medical problems. Brother(s) Additional Family Medical History / Comment(s): Patient has 4 brothers. Two at the age of 44 from coronary artery disease with history of tobacco use and alcohol dependence. One from aneurysm in the chest. General Exam Limitations: no limitations General appearance: alert, in no apparent distress Head exam: Present: atraumatic, normocephalic, normal inspection Eye exam: Present: normal appearance, PERRL, EOMI Pupils: Present: normal accommodation ENT exam: Present: normal exam, normal oropharynx, mucous membranes moist Neck exam: Present: normal inspection, full ROM. Absent: tenderness Respiratory exam: Present: normal lung sounds bilaterally. Absent: respiratory distress, rhonchi, stridor, chest wall tenderness, accessory muscle use Cardiovascular Exam: Present: regular rate, normal rhythm, normal heart sounds GI/Abdominal exam: Present: soft, tenderness (Mild right-sided abdominal tenderness. Colostomy bag). Absent: distended, guarding, rebound, rigid Extremities exam: Present: normal inspection, full ROM. Absent: tenderness Back exam: Present: normal inspection, full ROM. Absent: tenderness Neurological exam: Present: alert, oriented X3, normal gait Psychiatric exam: Present: normal affect, normal mood Skin exam: Present: warm, dry, intact, normal color Course Vital Signs 08/29/20 20:32 Temperature 99.3 F Pulse Rate 98 Respiratory 18 Rate Blood Pressure 186/108 O2 Sat by Pulse 98 Oximetry Medical Decision Making - Medical Decision Making 70-year-old male presents to emergency Department with a chief complaint of abdominal pain. On physical examination, right-sided abdominal tenderness. Right CVA tenderness. Laboratory work reveals mild leukocytosis which I suspect is secondary to vomiting. UA reveals blood in the urine but no signs of urinary tract infection. Trace amount of ketones. Acetone pending. Anion gap of 13 likely due to Lactic acid of 2.6. I do not suspect this is infectious at this time. CMP reveals increased BUN and creatinine which I suspect is secondary to hydroureter. Patient also has a blood glucose of 300. Will be started on sliding scale. CT of abdomen and pelvis reveals a large 13 mm stone in the right mid ureter. Hydroureter noted. I spoke with Dr.Rahabar zapienrding the case. Dr Arana spoke to Dr Andre who will admit with Dr Wilson on consult. - Lab Data Result diagrams: 08/29/20 20:58 08/29/20 20:58 Lab Results 08/29/20 08/29/20 08/29/20 Range/Units 20:58 20:58 20:58 WBC 11.2 H (3.8-10.6) k/uL RBC 4.82 (4.30-5.90) m/uL Hgb 15.1 (13.0-17.5) gm/dL Hct 43.2 (39.0-53.0) % MCV 89.5 (80.0-100.0) fL MCH 31.4 (25.0-35.0) pg MCHC 35.1 (31.0-37.0) g/dL RDW 13.6 (11.5-15.5) % Plt Count 128 L (150-450) k/uL MPV 10.6 Neutrophils % 80 % Lymphocytes % 9 % Monocytes % 7 % Eosinophils % 1 % Basophils % 0 % Neutrophils # 9.0 H (1.3-7.7) k/uL Lymphocytes # 1.0 (1.0-4.8) k/uL Monocytes # 0.8 (0-1.0) k/uL Eosinophils # 0.2 (0-0.7) k/uL Basophils # 0.0 (0-0.2) k/uL Sodium 136 L (137-145) mmol/L Potassium 4.8 (3.5-5.1) mmol/L Chloride 101 (98-107) mmol/L Carbon Dioxide 22 (22-30) mmol/L Anion Gap 13 mmol/L BUN 23 H (9-20) mg/dL Creatinine 1.36 H (0.66-1.25) mg/dL Est GFR (CKD-EPI)AfAm 60 (>60 ml/min/1.73 sqM) Est GFR (CKD-EPI)NonAf 52 (>60 ml/min/1.73 sqM) Glucose 302 H (74-99) mg/dL POC Glucose (mg/dL) (75-99) mg/dL POC Glu Optical Instrument Assembly Supervisor ID Plasma Lactic Acid Chris 2.6 H* (0.7-2.0) mmol/L Calcium 9.7 (8.4-10.2) mg/dL Total Bilirubin 0.8 (0.2-1.3) mg/dL AST 70 H (17-59) U/L ALT 52 H (4-49) U/L Alkaline Phosphatase 77 (38-126) U/L Total Protein 7.6 (6.3-8.2) g/dL Albumin 4.8 (3.5-5.0) g/dL Lipase 114 (23-300) U/L Urine Color Urine Appearance (Clear) Urine pH (5.0-8.0) Ur Specific [place]ford (1.001-1.035) Urine Protein (Negative) Urine Glucose (UA) (Negative) Urine Ketones (Negative) Urine Blood (Negative) Urine Nitrite (Negative) Urine Bilirubin (Negative) Urine Urobilinogen (<2.0) mg/dL Ur Leukocyte Esterase (Negative) Urine RBC (0-5) /hpf Urine WBC (0-5) /hpf Urine Mucus (None) /hpf 08/29/20 08/29/20 Range/Units 20:58 22:23 WBC (3.8-10.6) k/uL RBC (4.30-5.90) m/uL Hgb (13.0-17.5) gm/dL Hct (39.0-53.0) % MCV (80.0-100.0) fL MCH (25.0-35.0) pg MCHC (31.0-37.0) g/dL RDW (11.5-15.5) % Plt Count (150-450) k/uL MPV Neutrophils % % Lymphocytes % % Monocytes % % Eosinophils % % Basophils % % Neutrophils # (1.3-7.7) k/uL Lymphocytes # (1.0-4.8) k/uL Monocytes # (0-1.0) k/uL Eosinophils # (0-0.7) k/uL Basophils # (0-0.2) k/uL Sodium (137-145) mmol/L Potassium (3.5-5.1) mmol/L Chloride (98-107) mmol/L Carbon Dioxide (22-30) mmol/L Anion Gap mmol/L BUN (9-20) mg/dL Creatinine (0.66-1.25) mg/dL Est GFR (CKD-EPI)AfAm (>60 ml/min/1.73 sqM) Est GFR (CKD-EPI)NonAf (>60 ml/min/1.73 sqM) Glucose (74-99) mg/dL POC Glucose (mg/dL) 312 H (75-99) mg/dL POC Glu Optical Instrument Assembly Supervisor ID Lilia Turner Plasma Lactic Acid Chris (0.7-2.0) mmol/L Calcium (8.4-10.2) mg/dL Total Bilirubin (0.2-1.3) mg/dL AST (17-59) U/L ALT (4-49) U/L Alkaline Phosphatase (38-126) U/L Total Protein (6.3-8.2) g/dL Albumin (3.5-5.0) g/dL Lipase (23-300) U/L Urine Color Yellow Urine Appearance Clear (Clear) Urine pH 5.0 (5.0-8.0) Ur Specific [place] 1.009 (1.001-1.035) Urine Protein Negative (Negative) Urine Glucose (UA) 4+ H (Negative) Urine Ketones Trace H (Negative) Urine Blood Moderate H (Negative) Urine Nitrite Negative (Negative) Urine Bilirubin Negative (Negative) Urine Urobilinogen <2.0 (<2.0) mg/dL Ur Leukocyte Esterase Negative (Negative) Urine RBC 39 H (0-5) /hpf Urine WBC <1 (0-5) /hpf Urine Mucus Rare H (None) /hpf Disposition Clinical Impression: Abdominal pain, Renal stone, Hydroureter Disposition: ADMITTED IP TO THIS [facility] Condition: Good Instructions (If sedation given, give patient instructions): Abdominal Pain (ED) Is patient prescribed a controlled substance at d/c from ED?: No Referrals: Miguel Bautista MD [Primary Care Provider] - 1-2 days Time of Disposition: 23:30
[2020-08-29 21:00] LABS: Glucose,Whole Blood 312 mg/dL (75-99)
[2020-08-29 21:18] LABS: Basophils % (A) 0 %; Eosinophils # (A) 0.2 k/uL (0-0.7); Eosinophils % (A) 1 %; HCT 43.2 % (39.0-53.0); HGB 15.1 gm/dL (13.0-17.5); Lymphocytes % (A) 9 %; MCH 31.4 pg (25.0-35.0); MCHC 35.1 g/dL (31.0-37.0); MCV 89.5 fL (80.0-100.0); Mean Platelet Volume 10.6; Monocytes # (A) 0.8 k/uL (0-1.0); Monocytes % (A) 7 %; Neutrophils % (A) 80 %; Platelet Count 128 k/uL (150-450); RBC 4.82 m/uL (4.30-5.90); RDW 13.6 % (11.5-15.5); WBC 11.2 k/uL (3.8-10.6)
--- NOTE | 2020-08-29 21:32 | XR ---
EXAMINATION TYPE: XR KUB DATE OF EXAM: 08/29/2020 COMPARISON: 11/19/2017 HISTORY: Abdominal pain TECHNIQUE: FINDINGS: There is no evidence of intestinal obstruction or pneumoperitoneum. There is however a rela tive lack of bowel gas. Fecal pattern is normal. There is no sign of a mass. There are clips in the r ight lower quadrant. Lung bases are clear. IMPRESSION: Nonacute abdomen. No significant bowel gas seen of uncertain significance.
[2020-08-29 21:36] LABS: Albumin 4.8 g/dL (3.5-5.0); Calcium 9.7 mg/dL (8.4-10.2); Potassium 4.8 mmol/L (3.5-5.1); Total Bilirubin 0.8 mg/dL (0.2-1.3); Total Protein 7.6 g/dL (6.3-8.2)
[2020-08-29] MEDS ORDERED: HYDROmorphone 0.5 MG/0.5 ML SYRINGE IVP STA (22:12)
--- NOTE | 2020-08-29 22:53 | CT ---
EXAMINATION TYPE: CT abdomen pelvis w con DATE OF EXAM: 08/29/2020 COMPARISON: 05/15/2018 HISTORY: Right lower quadrant abdominal pain. CT DLP: 1382 mGycm Automated exposure control for dose reduction was used. CONTRAST: Performed with IV Contrast, patient injected with 80ml mL of Isovue 300. The lung bases are clear. There is no pleural effusion. There is mild fatty infiltration of the liver . Heart size is normal. There is no pericardial effusion. Spleen is intact. There is no pancreatic ma ss. The stomach is intact. Gallbladder appears normal. There is no adrenal mass. The right kidney shows hydronephrosis with perinephric edema. There is righ t-sided hydroureter. There is 13 mm calculus in the mid right ureter. Bladder distends smoothly. Ther e is no free fluid in the pelvis. There is no evidence of a pelvic mass. There is previous surgery on the: Left rectal stump. There is ileostomy on the right side of the abdomen. There is apparent total colectomy. There are left side renal cysts measuring up to 3 cm. Lumbar vertebra have normal alignment. Posterior elements are intact. There is no compression fractur e. Facet joints are intact. The bony pelvis is intact. There is no evidence of a bowel obstruction. There is no mesenteric edema. There is no ascites or amilcar e air. IMPRESSION: Large obstructing calculus in the mid right ureter with hydronephrosis and hydroureter. Obstruction i s new compared to old exam.
[2020-08-29 23:06] LABS: Appearance,Urine Clear (Clear); Bilirubin,Urine Negative (Negative); Blood,Urine Moderate (Negative); Color,Urine Yellow; Glucose,Urine (UA) 4+ (Negative); Ketones,Urine Trace (Negative); Leukocyte Esterase,Urine Negative (Negative); Mucus,Urine Rare /hpf; Nitrite,Urine Negative (Negative); Protein,Urine Negative (Negative); RBC,Urine 39 /hpf (0-5); Specific Gravity,Urine 1.009 (1.001-1.035); Urobilinogen,Urine <2.0 mg/dL (<2.0); WBC,Urine <1 /hpf (0-5)
[2020-08-29] MEDS ORDERED: LORazepam 2 MG/ML INJ IV PRN (23:14)
[2020-08-29] MEDS ORDERED: NALOXONE 0.4 MG/ML 1 ML VIAL IV PRN (23:14)
[2020-08-30] MEDS: SODIUM CHLORIDE 0.9% 1,000 ML IV SCH ×2 (00:07→15:53)
[2020-08-30 01:58] LABS: Glucose,Whole Blood 264 mg/dL (75-99)
[2020-08-30] MEDS: HYDROmorphone 1 MG/ML 1 ML SYRINGE IVP PRN ×2 (03:02→07:24)
[2020-08-30 07:36] LABS: Glucose,Whole Blood 205 mg/dL (75-99)
[2020-08-30] MEDS ORDERED: PROPOFOL 10 MG/ML 20 ML VIAL IV ONE (08:11)
[2020-08-30] MEDS ORDERED: PHENYLEPHRINE-0.9% NACL SYG 1,000 MCG/10 ML SYRINGE ONE (08:11)
[2020-08-30] MEDS ORDERED: LIDOCAINE 1% INJ 10MG/ML (20 ML MDV) ONE (08:11)
[2020-08-30] MEDS ORDERED: fentaNYL (PF) 50 MCG/ML 2 ML AMP ONE (08:11)
[2020-08-30] MEDS ORDERED: SUCCINYLCHOLINE CHLORIDE 100 MG/5 ML SYR IV ONE (08:11)
[2020-08-30] MEDS ORDERED: DEXAMETHASONE SOD PHOS (MDV) 100 MG/10 ML VIAL ONE (08:11)
[2020-08-30] MEDS ORDERED: ONDANSETRON 4 MG/2 ML VIAL ONE (08:11)
--- NOTE | 2020-08-30 08:15 | P.GSCN ---
History of Present Illness Consult date: 08/30/20 Reason for Consult: right sided ureteral stone History of present illness: Mr Allen is a 70 yo male that presented to the ED with right-sided abdominal pain. He underwent a CT on presentation that showed an evidence of 1.3 cm right midureteral stone with hydronephrosis. Denies any dysuria, gross hematuria, fevers or chills this a.m. he still symptomatic from his stone. His vital signs are within normal limits, his UA is negative for a UTI. Discussed with him given his symptoms and the size of the stone I recommend proceeding with s urgical intervention. Discussed with him given his negative UA stable vitals we can proceed with a right-sided ureteroscopy. If there is signs of infection or impaction that we will only be able to proceed with stent placement. Discussed potential that given the size of the stone and if we are not able to advance a wire past the stone then he might need a nephrostomy tube. Discussed with him t he risk and benefit of the procedure. He understood all the risk and agreed to proceed with a cystoscopy, right ureteroscopy, holmium laser lithotripsy, stone basketing and stent placement Review of Systems - Constitutional Denies fever, Denies weight loss - EENT Ears, nose, mouth and throat: Reports as per HPI - Cardiovascular Denies chest pain, Denies shortness of breath - Respiratory Denies cough, Denies 7 - Gastrointestinal Reports as per HPI - Genitourinary Reports flank pain, Reports kidney stones - Integumentary Denies rash, Denies unusual bruising - Neurological Denies headaches, Denies syncope Past Medical History Past Medical History: Atrial Fibrillation, CVA/TIA, Diabetes Mellitus, Eye Disor harmeet, Hearing Disorder / Deafness, Hyperlipidemia, Hypertension, Sleep Apnea/CPAP/BIPAP Additional Past Medical History / Comment(s): 05/2015 CVA and 08/2017, continues to have occasional balance issues. ., Ulcerative Colitis, hx kidney stone. BPH. illeostomy placed March 19, 2018 uses cpap at home for sleep apnea History of Any Multi-Drug Resistant Organisms: None Reported Past Surgical History: Appendectomy, Bowel Resection, Hernia Repair, Joint Replacement Additional Past Surgical History / Comment(s): APPENDEX RUPTURE, HAD J pouch. Left partial knee replacement. COLONOSCOPY, bilateral cataract extraction with lens implants, mesh with hernia repair, exama, colectomy with ileostomy Past Anesthesia/Blood Transfusion Reactions: No Reported Reaction Additional Past Anesthesia/Blood Transfusion Reaction / Comm: PATIENT HAD SURGERY FOR LEFT EYE DETACHED RETINA AND DEVELOPED GAS BUBBLE IN L EYE. HE WAS INSTRUCTED TO NOT RECEIVE NITROUS OXIDE OR RIDE IN A PLANE UNTIL GAS BUBBLE IS GONE. Past Psychological History: Depression Additional Psychological History / Comment(s): Pt resides with his spouse. He is independent. Smoking Status: Never smoker Past Alcohol Use History: Rare Additional Past Alcohol Use History / Comment(s): Patient was a smoker greater than 1 pack per day for only 3 years and quit in 1974. No illicit drug use. Patient lives at home with his . Past Drug Use History: None Reported - Past Family History Mother Family Medical History: Cancer, Diabetes Mellitus Additional Family Medical History / Comment(s): Mother at age 84 from [place] Father Additional Family Medical History / Comment(s): Father is with history of coronary artery disease. Patient has 4 children that are healthy with no major medical problems. Brother(s) Additional Family Medical History / Comment(s): Patient has 4 brothers. Two at the age of 44 from coronary artery disease with history of tobacco use and alcohol dependence. One from aneurysm in the chest. Medications and Allergies Home Medications Medication Instructions Recorded Confirmed Type Atorvastatin [Lipitor] 40 mg PO HS 02/06/17 08/29/20 History DULoxetine HCL [Cymbalta] 60 mg PO DAILY 02/06/17 08/29/20 History Finasteride [Proscar] 5 mg PO DAILY 02/06/17 08/29/20 History Multivit-Min/FA/Lycopen/Lutein 1 cap PO DAILY 02/06/17 08/29/20 History [Centrum Silver Men Tablet] Tamsulosin [Flomax] 0.4 mg PO HS 02/06/17 08/29/20 History Trospium Chloride [Sanctura] 20 mg PO BID 02/06/17 08/29/20 History Cholecalciferol [Vitamin D3 (25 1,000 unit PO DAILY 11/19/17 08/29/20 History Mcg = 1000 Iu)] Ferrous Sulfate [Iron (65 MG 65 mg PO HS 12/18/17 08/29/20 History Elemental)] Metoprolol Succinate (ER) [Toprol 50 mg PO HS 12/05/18 08/29/20 History XL] Omeprazole 40 mg PO DAILY 12/05/18 08/29/20 History Apixaban [Eliquis] 5 mg PO BID 08/29/20 08/29/20 History Ascorbic Acid [Vitamin C] 1,000 mg PO DAILY 08/29/20 08/29/20 History Cranberry 450mg 1 tab PO HS 08/29/20 08/29/20 History Guar Gum (Unknown Strength) 1 tab PO BID@0200,1400 08/29/20 08/29/20 History Insulin Glargine,Hum.rec.anlog 60 unit SQ HS 08/29/20 08/29/20 History [Toujeo Max Solostar] Loratadine [Claritin] 10 mg PO BID PRN 08/29/20 08/29/20 History Pioglitazone [Actos] 30 mg PO DAILY 08/29/20 08/29/20 History Turmeric Root Extract [Turmeric] 2,000 mg PO BID 08/29/20 08/29/20 History Allergies Allergy/AdvReac Type Severity Reaction Status Date / Time codeine Allergy Rash/Hives Verified 08/29/20 23:42 morphine Allergy Rash/Hives Verified 08/29/20 23:42 Surgical - Exam Vital Signs Temp Pulse Resp BP Pulse Ox 99.3 F 98 18 186/108 98 08/29/20 20:32 08/29/20 20:32 08/29/20 20:32 08/29/20 20:32 08/29/20 20:32 - General well developed, well nourished, no distress, moderate pain - Eyes PERRL, normal ocular movement - ENT normal nares, normal mucosa - Respiratory normal expansion, normal respiratory effort - Psychiatric oriented to time, oriented to person, oriented to place, speech is normal Results - Labs 08/29/20 20:58 08/29/20 20:58 Abnormal Lab Results - Last 24 Hours (Table) 08/29/20 08/29/20 08/29/20 Range/Units 20:58 20:58 20:58 WBC 11.2 H (3.8-10.6) k/uL Plt Count 128 L (150-450) k/uL Neutrophils # 9.0 H (1.3-7.7) k/uL Sodium 136 L (137-145) mmol/L BUN 23 H (9-20) mg/dL Creatinine 1.36 H (0.66-1.25) mg/dL Glucose 302 H (74-99) mg/dL POC Glucose (mg/dL) (75-99) mg/dL Plasma Lactic Acid Chris 2.6 H* (0.7-2.0) mmol/L AST 70 H (17-59) U/L ALT 52 H (4-49) U/L Urine Glucose (UA) (Negative) Urine Ketones (Negative) Urine Blood (Negative) Urine RBC (0-5) /hpf Urine Mucus (None) /hpf 08/29/20 08/29/20 08/30/20 Range/Units 20:58 22:23 00:20 WBC (3.8-10.6) k/uL Plt Count (150-450) k/uL Neutrophils # (1.3-7.7) k/uL Sodium (137-145) mmol/L BUN (9-20) mg/dL Creatinine (0.66-1.25) mg/dL Glucose (74-99) mg/dL POC Glucose (mg/dL) 312 H (75-99) mg/dL Plasma Lactic Acid Chris 2.8 H* (0.7-2.0) mmol/L AST (17-59) U/L ALT (4-49) U/L Urine Glucose (UA) 4+ H (Negative) Urine Ketones Trace H (Negative) Urine Blood Moderate H (Negative) Urine RBC 39 H (0-5) /hpf Urine Mucus Rare H (None) /hpf 08/30/20 08/30/20 08/30/20 Range/Units 01:53 04:08 06:07 WBC (3.8-10.6) k/uL Plt Count (150-450) k/uL Neutrophils # (1.3-7.7) k/uL Sodium (137-145) mmol/L BUN (9-20) mg/dL Creatinine (0.66-1.25) mg/dL Glucose (74-99) mg/dL POC Glucose (mg/dL) 264 H (75-99) mg/dL Plasma Lactic Acid Chris 2.4 H* 2.4 H* (0.7-2.0) mmol/L AST (17-59) U/L ALT (4-49) U/L Urine Glucose (UA) (Negative) Urine Ketones (Negative) Urine Blood (Negative) Urine RBC (0-5) /hpf Urine Mucus (None) /hpf 08/30/20 Range/Units 07:33 WBC (3.8-10.6) k/uL Plt Count (150-450) k/uL Neutrophils # (1.3-7.7) k/uL Sodium (137-145) mmol/L BUN (9-20) mg/dL Creatinine (0.66-1.25) mg/dL Glucose (74-99) mg/dL POC Glucose (mg/dL) 205 H (75-99) mg/dL Plasma Lactic Acid Chris (0.7-2.0) mmol/L AST (17-59) U/L ALT (4-49) U/L Urine Glucose (UA) (Negative) Urine Ketones (Negative) Urine Blood (Negative) Urine RBC (0-5) /hpf Urine Mucus (None) /hpf Diabetes panel 08/29/20 Range/Units 20:58 Sodium 136 L (137-145) mmol/L Potassium 4.8 (3.5-5.1) mmol/L Chloride 101 (98-107) mmol/L Carbon Dioxide 22 (22-30) mmol/L BUN 23 H (9-20) mg/dL Creatinine 1.36 H (0.66-1.25) mg/dL Glucose 302 H (74-99) mg/dL Calcium 9.7 (8.4-10.2) mg/dL AST 70 H (17-59) U/L ALT 52 H (4-49) U/L Alkaline Phosphatase 77 (38-126) U/L Total Protein 7.6 (6.3-8.2) g/dL Albumin 4.8 (3.5-5.0) g/dL Calcium panel 08/29/20 Range/Units 20:58 Calcium 9.7 (8.4-10.2) mg/dL Albumin 4.8 (3.5-5.0) g/dL Pituitary panel 08/29/20 Range/Units 20:58 Sodium 136 L (137-145) mmol/L Potassium 4.8 (3.5-5.1) mmol/L Chloride 101 (98-107) mmol/L Carbon Dioxide 22 (22-30) mmol/L BUN 23 H (9-20) mg/dL Creatinine 1.36 H (0.66-1.25) mg/dL Glucose 302 H (74-99) mg/dL Calcium 9.7 (8.4-10.2) mg/dL Adrenal panel 08/29/20 Range/Units 20:58 Sodium 136 L (137-145) mmol/L Potassium 4.8 (3.5-5.1) mmol/L Chloride 101 (98-107) mmol/L Carbon Dioxide 22 (22-30) mmol/L BUN 23 H (9-20) mg/dL Creatinine 1.36 H (0.66-1.25) mg/dL Glucose 302 H (74-99) mg/dL Calcium 9.7 (8.4-10.2) mg/dL Total Bilirubin 0.8 (0.2-1.3) mg/dL AST 70 H (17-59) U/L ALT 52 H (4-49) U/L Alkaline Phosphatase 77 (38-126) U/L Total Protein 7.6 (6.3-8.2) g/dL Albumin 4.8 (3.5-5.0) g/dL Assessment and Plan Assessment: 70 yo male with hx of 1.3 cm right sided ureteral stone -OR for right sided ureteroscopy with holmium laser, stone basketting and stent placement
[2020-08-30] MEDS ORDERED: IV FLUID CONTINUATION 1,000 ML IV ONE (08:16)
[2020-08-30] MEDS ORDERED: SODIUM CHLORIDE 0.9% 100 ML with GENTAMICIN 80 MG IV ONE ×2 (08:34)
[2020-08-30] MEDS ORDERED: IOPAMIDOL-370 50ML BTL MISCELLANE ONE (08:43)
[2020-08-30] MEDS ORDERED: SODIUM CHLORIDE 0.9% 1,000 ML IV ONE (09:12)
[2020-08-30] MEDS ORDERED: LORATADINE 10 MG TAB PO PRN (09:39)
[2020-08-30 10:17] LABS: Glucose,Whole Blood 203 mg/dL (75-99)
--- NOTE | 2020-08-30 10:21 | FL ---
Fluoroscopy INDICATION: Pain FINDINGS: Fluoroscopy time: 0 seconds. Images obtained: 1. IMPRESSIONS: 1. Documentation of fluoroscopy.
--- NOTE | 2020-08-30 10:42 | P.OP ---
Date of Procedure: 08/30/20 Preoperative Diagnosis: Right-sided ureteral stone Postoperative Diagnosis: Same Procedure(s) Performed: Cystoscopy, right retrograde pyelogram ureteroscopy, holmium laser lithotripsy, stone basketing and stent placement Implants: 6-Filipino by 26 cm stent Anesthesia: DEMETRI Surgeon: Mitesh Wilson Estimated Blood Loss (ml): 5 Pathology: other (right ureteral stone) Condition: stable Disposition: PACU Indications for Procedure: Mr Allen is a 70 yo male that presented to the ED with right-sided abdominal pain. He underwent a CT on presentation that showed an evidence of 1.3 cm right midureteral stone with hydronephrosis. Denies any dysuria, gross hematuria, fevers or chills this a.m. he still symptomatic from his stone. His vital signs are within normal limits, his UA is negative for a UTI. Discussed with him given his symptoms and the size of the stone I recommend proceeding with surgical intervention. Discussed with him given his negative UA stable vitals we can proceed with a right-sided ureteroscopy. If there is signs of infection or impaction that we will only be able to proceed with stent placement. Discussed potential that given the size of the stone and if we are not able to advance a wire past the stone then he might need a nephrostomy tube. Discussed with him the risk and benefit of the procedure. He understood all the risk and agreed to proceed with a cystoscopy, right ureteroscopy, holmium laser lithotripsy, stone basketing and stent placement Operative Findings: 2 large right-sided ureteral stone impacted in the mid ureter Description of Procedure: Patient was brought to the operating room, general anesthesia was induced. He was prepped and draped in sterile fashion a placemed in dorsal lithotimy position. Cystoscopy was performed which showed no abnormality within the bladder. Of note patient had bilateral obstructive prostate Lateral lobes. Attention was then carried to the right ureteral orifice, attempted to advance the wire through the ureteral orifice but resistance was met at the level of the stone. At this time an open-ended catheter was passed in retrograde pyelogram was performed which showed minimal contrast going up past stone. At this time the cystoscope was withdrawn and a semirigid ureteroscope was inserted. I was able to advance scope to the level of stone, at this time I was able to navigate a wire past the stone and up into the collecting system. I attempted to laser the stone using the rigid ureteroscope but the angle of the scope did not allow lasering of the stone. At this time a second wire was advanced past the stone into the collecting system and the ureteroscope was withdrawn with the wire in place. Next an open-ended catheter was passed over the wire and there was a clear urine return from the open ended catheter. Next a flexible ureteroscope was passed over the wire and the stone was visualized. Using the holmium laser the stone was fragmented into small fragments, it appeared to be two stones in the mid ureter . Sizable fragments were removed using the stone basket. One of the larger fragments migrated up to the kidney. At this time the ureteroscope was withdrawn and a ureteral access sheath was passed over the wire under fluoroscopy. The proximal ureteroscope was reinserted and using the holmium laser the fragments was dusted into small fragments, sizable fragments were removed using a stone basket. Repeat renoscopy showed no sizable fragments or injury to the kidney. Pullback ureteroscopy showed no injury to the ureter or any evidence of ureteral stone. At this time a ureteroscope was withdrawn and a cystoscope was inserted, the right ureteral orifice was intubated with a sensor wire. Next a ureteral stent was passed over the wire, the proximal curl was visualized on fluoroscopy and distal curl was visualized using the cystoscope. The bladder was emptied at the end of the case. Patient tolerated the procedure well was taken to PACU in stable condition
[2020-08-30] MEDS: INSULIN ASPART (NovoLOG) 100 UNIT/ML VIAL SQ SCH ×4 (11:06→20:39)
[2020-08-30 11:57] LABS: Glucose,Whole Blood 264 mg/dL (75-99)
[2020-08-30] MEDS: DULoxetine HCL 60 MG CAPSULE.DR PO SCH (12:09)
[2020-08-30] MEDS: FINASTERIDE 5 MG TAB PO SCH (12:10)
--- NOTE | 2020-08-30 14:50 | P.HPIM ---
History of Present Illness H&P Date: 08/30/20 Chief Complaint: Right lower abdominal pain This is a 70-year-old male patient of Dr. Bautista with past medical history of ulcerative colitis with ileostomy 2018 , CVA in 2015 and TIA in 2018, diabetes mellitus type 2, benign prostatic hypertrophy, nephrolithiasis, hypertension, hyperlipidemia. He presented to the emergency room secondary to right lower quadrant abdominal pain, which started a few hours prior to admission, this was nonradiating, not accompanied by any dysuria hematuria, has some nausea and vomiting, pain persisted for which now he was seen in emergency room. He does have a chronic ileostomy bag which hasn't been emptying since 5 PM, and he feels like he has a small bowel obstruction similar to the previous episodes. Incidentally when he imaged in the emergency room CAT scan shows a large obstructing 13 mm right mid ureteral stone he does have microscopic hematuria. There is no gross hematuria, next Emergency room, CAT scan shows large obstructing calculus right midureter, with hydronephrosis hydroureter, 13 mm, with no bladder distention, there is no free fluid in the pelvis, no evidence of pelvic mass. Ileostomy on the right side of the abdomen without any evidence of bowel obstruction. Patient was seen by Dr. Wilson for which she underwent on August 30 day laser lithotripsy. Right-sided uresteroscopy with baskeing of stone, and stent placement right side t. He is on adequate, we have discontinued the Jai for the next few days, and monitor for ongoing gross hematuria. IV for hydration, most likely to be ischarged in morning, Review of Systems Constitutional: Reports as per HPI, Denies anorexia, Denies chills, Denies chronic headaches, Denies chronic pain, Denies daytime sleepiness, Denies fatigue, Denies fever, Denies lethargy, Denies malaise, Denies night sweats, Denies poor appetite, Denies sweats, Denies weakness, Denies weight gain, Denies weight loss Ears, nose, mouth and throat: Reports as per HPI, Denies ant. neck pain, Denies bleeding gums, Denies dental pain, Denies dysphagia, Denies epistaxis, Denies headache, Denies hoarseness, Denies mouth pain, Denies nasal congestion, Denies nasal discharge, Denies neck fullness/pressure, Denies neck lump, Denies nose pain, Denies odynophagia, Denies post-nasal drip, Denies sinus pain, Denies sinus pressure, Denies swelling in mouth, Denies swelling in throat, Denies sore throat, Denies vertigo, Denies voice changes Cardiovascular: Reports as per HPI, Denies chest pain, Denies claudication, Denies decreased exercise tolerance, Denies dyspnea on exertion, Denies edema, Denies high blood pressure, Denies irregular heart beat, Denies leg edema, Denies lightheadedness, Denies orthopnea, Denies palpitations, Denies paroxysmal nocturnal dyspnea, Denies phlebitis, Denies rapid heart beat, Denies shortness of breath, Denies syncope Respiratory: Reports as per HPI Gastrointestinal: Reports as per HPI Genitourinary: Reports as per HPI, Reports hematuria Musculoskeletal: Reports as per HPI, Denies arm numbness/tingling, Denies atrophy, Denies fractures, Denies frequent falls, Denies gait dysfunction, Denies hot joints, Denies leg numbness/tingling, Denies limitation of motion, Denies loss of height, Denies low back pain, Denies morning stiffness, Denies muscle cramps, Denies muscle weakness, Denies myalgias, Denies neck pain, Denies neck stiffness, Denies prior amputations, Denies redness of joints, Denies shooting arm pain, Denies shooting leg pain Integumentary: Reports as per HPI Neurological: Reports as per HPI Psychiatric: Reports as per HPI, Denies anhedonia, Denies anxiety, Denies anxiety attacks, Denies change in appetite, Denies change in libido, Denies ch albina in sleep habits, Denies confusion, Denies depression, Denies difficulty concentrating, Denies disorientation, Denies hallucinations, Denies hopelessness, Denies hypersomnia, Denies insomnia, Denies irritability, Denies memory loss, Denies mood swings, Denies paranoia, Denies sadness/tearfulness, Denies sleep disturbances, Denies suicidal ideation Endocrine: Reports as per HPI, Denies cold intolerance, Denies deepening of the voice, Denies excessive sweating, Denies excessive thirst, Denies fatigue, Denies flushing, Denies heat intolerance, Denies high blood sugars, Denies increase in ring/shoe/hat size, Denies low blood sugars, Denies nocturia, Denies palpitations, Denies polydipsia, Denies polyphagia, Denies polyuria, Denies proptosis, Denies recent glucocorticoid use, Denies thyroid mass, Denies weight change Hematologic/Lymphatic: Reports as per HPI Allergic/Immunologic: Reports as per HPI, Denies allergic rhinitis, Denies anaphylaxis, Denies angioedema, Denies gluten intolerance, Denies persistent inf ections, Denies seasonal allergies, Denies urticaria, Denies wheezing Past Medical History Past Medical History: Atrial Fibrillation, CVA/TIA, Diabetes Mellitus, Eye Disorder, Hearing Disorder / Deafness, Hyperlipidemia, Hypertension, Sleep Apnea/CPAP/BIPAP Additional Past Medical History / Comment(s): 05/2015 CVA and 08/2017, continues to have occasional balance issues. ., Ulcerative Colitis, hx kidney stone. BPH. illeostomy placed March 19, 2018 uses cpap at home for sleep apnea History of Any Multi-Drug Resistant Organisms: None Reported Past Surgical History: Appendectomy, Bowel Resection, Hernia Repair, Joint Replacement Additional Past Surgical History / Comment(s): APPENDEX RUPTURE, HAD J pouch. Left partial knee replacement. 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 HE WAS INSTRUCTED TO NOT RECEIVE NITROUS OXIDE OR RIDE IN A PLANE UNTIL GAS BUBBLE IS GONE. Past Psychological History: Depression Additional Psychological History / Comment(s): Pt resides with his spouse. He is independent. Smoking Status: Never smoker Past Alcohol Use History: Rare Additional Past Alcohol Use History / Comment(s): Patient was a smoker greater than 1 pack per day for only 3 years and quit in 1974. No illicit drug use. Patient lives at home with his . Past Drug Use History: None Reported - Past Family History Mother Family Medical History: Cancer, Diabetes Mellitus Additional Family Medical History / Comment(s): Mother at age 84 from [place] Father Additional Family Medical History / Comment(s): Father is with history of coronary artery disease. Patient has 4 children that are healthy with no major medical problems. Brother(s) Additional Family Medical History / Comment(s): Patient has 4 brothers. Two at the age of 44 from coronary artery disease with history of tobacco use and alcohol dependence. One from aneurysm in the chest. Medications and Allergies Home Medications Medication Instructions Recorded Confirmed Type Atorvastatin [Lipitor] 40 mg PO HS 02/06/17 08/29/20 History DULoxetine HCL [Cymbalta] 60 mg PO DAILY 02/06/17 08/29/20 History Finasteride [Proscar] 5 mg PO DAILY 02/06/17 08/29/20 History Multivit-Min/FA/Lycopen/Lutein 1 cap PO DAILY 02/06/17 08/29/20 History [Centrum Silver Men Tablet] Tamsulosin [Flomax] 0.4 mg PO HS 02/06/17 08/29/20 History Trospium Chloride [Sanctura] 20 mg PO BID 02/06/17 08/29/20 History Cholecalciferol [Vitamin D3 (25 1,000 unit PO DAILY 11/19/17 08/29/20 History Mcg = 1000 Iu)] Ferrous Sulfate [Iron (65 MG 65 mg PO HS 12/18/17 08/29/20 History Elemental)] Metoprolol Succinate (ER) [Toprol 50 mg PO HS 12/05/18 08/29/20 History XL] Omeprazole 40 mg PO DAILY 12/05/18 08/29/20 History Apixaban [Eliquis] 5 mg PO BID 08/29/20 08/29/20 History Ascorbic Acid [Vitamin C] 1,000 mg PO DAILY 08/29/20 08/29/20 History Cranberry 450mg 1 tab PO HS 08/29/20 08/29/20 History Guar Gum (Unknown Strength) 1 tab PO BID@0200,1400 08/29/20 08/29/20 History Insulin Glargine,Hum.rec.anlog 60 unit SQ HS 08/29/20 08/29/20 History [Toujeo Max Solostar] Loratadine [Claritin] 10 mg PO BID PRN 08/29/20 08/29/20 History Pioglitazone [Actos] 30 mg PO DAILY 08/29/20 08/29/20 History Turmeric Root Extract [Turmeric] 2,000 mg PO BID 03/20/21 03/20/21 History Allergies Allergy/AdvReac Type Severity Reaction Status Date / Time codeine Allergy Rash/Hives Verified 08/29/20 23:42 morphine Allergy Rash/Hives Verified 08/29/20 23:42 Physical Exam Vitals: Vital Signs Temp Pulse Pulse Pulse Resp BP BP 08/30/20 10:37 84 16 149/82 08/30/20 10:24 87 16 150/84 08/30/20 10:09 97.3 F L 94 16 143/83 08/30/20 05:39 98.4 F 99 20 156/85 08/30/20 02:00 98.4 F 58 L 20 144/99 08/29/20 23:56 98.1 F 93 16 149/91 08/29/20 23:44 98.1 F 72 18 164/107 08/29/20 20:32 99.3 F 98 18 186/108 Pulse Ox 08/30/20 10:37 98 08/30/20 10:24 96 08/30/20 10:09 94 L 08/30/20 05:39 94 L 08/30/20 02:00 94 L 08/29/20 23:56 95 08/29/20 23:44 95 08/29/20 20:32 98 Intake and Output 08/29/20 08/30/20 08/30/20 22:59 06:59 14:59 Intake Total 0 902 Output Total 5 Balance 0 897 Intake: IV 902 Oral 0 Output: Estimated Blood Loss 5 Other: # Voids 1 Weight 92.986 kg 92.986 kg - Constitutional General appearance: cooperative - EENT Eyes: anicteric sclerae, dentition normal ENT: hearing grossly normal, NA/AT, normal oropharynx - Neck Neck: normal ROM - Respiratory Respiratory: bilateral: CTA, negative: diminished, dullness - Cardiovascular Rhythm: regular Heart sounds: normal: S1, S2 Abnormal Heart Sounds: no systolic murmur, no diastolic murmur, no rub, no S3 Gallop, no S4 Gallop, no click, no other - Gastrointestinal General gastrointestinal: normal bowel sounds, soft - Integumentary Integumentary: decreased turgor, normal - Neurologic Neurologic: CNII-XII intact - Musculoskeletal Musculoskeletal: gait normal, strength equal bilaterally - Psychiatric Psychiatric: A&O x's 3, appropriate affect Results CBC & Chem 7: 08/29/20 20:58 08/29/20 20:58 Labs: Abnormal Lab Results - Last 24 Hours (Table) 08/29/20 08/29/20 08/29/20 Range/Units 20:58 20:58 20:58 WBC 11.2 H (3.8-10.6) k/uL Plt Count 128 L (150-450) k/uL Neutrophils # 9.0 H (1.3-7.7) k/uL Sodium 136 L (137-145) mmol/L BUN 23 H (9-20) mg/dL Creatinine 1.36 H (0.66-1.25) mg/dL Glucose 302 H (74-99) mg/dL POC Glucose (mg/dL) (75-99) mg/dL Plasma Lactic Acid Chris 2.6 H* (0.7-2.0) mmol/L AST 70 H (17-59) U/L ALT 52 H (4-49) U/L Urine Glucose (UA) (Negative) Urine Ketones (Negative) Urine Blood (Negative) Urine RBC (0-5) /hpf Urine Mucus (None) /hpf 08/29/20 08/29/20 08/30/20 Range/Units 20:58 22:23 00:20 WBC (3.8-10.6) k/uL Plt Count (150-450) k/uL Neutrophils # (1.3-7.7) k/uL Sodium (137-145) mmol/L BUN (9-20) mg/dL Creatinine (0.66-1.25) mg/dL Glucose (74-99) mg/dL POC Glucose (mg/dL) 312 H (75-99) mg/dL Plasma Lactic Acid Chris 2.8 H* (0.7-2.0) mmol/L AST (17-59) U/L ALT (4-49) U/L Urine Glucose (UA) 4+ H (Negative) Urine Ketones Trace H (Negative) Urine Blood Moderate H (Negative) Urine RBC 39 H (0-5) /hpf Urine Mucus Rare H (None) /hpf 08/30/20 08/30/20 08/30/20 Range/Units 01:53 04:08 06:07 WBC (3.8-10.6) k/uL Plt Count (150-450) k/uL Neutrophils # (1.3-7.7) k/uL Sodium (137-145) mmol/L BUN (9-20) mg/dL Creatinine (0.66-1.25) mg/dL Glucose (74-99) mg/dL POC Glucose (mg/dL) 264 H (75-99) mg/dL Plasma Lactic Acid Chris 2.4 H* 2.4 H* (0.7-2.0) mmol/L AST (17-59) U/L ALT (4-49) U/L Urine Glucose (UA) (Negative) Urine Ketones (Negative) Urine Blood (Negative) Urine RBC (0-5) /hpf Urine Mucus (None) /hpf 08/30/20 08/30/20 08/30/20 Range/Units 07:33 10:14 11:20 WBC (3.8-10.6) k/uL Plt Count (150-450) k/uL Neutrophils # (1.3-7.7) k/uL Sodium (137-145) mmol/L BUN (9-20) mg/dL Creatinine (0.66-1.25) mg/dL Glucose (74-99) mg/dL POC Glucose (mg/dL) 205 H 203 H (75-99) mg/dL Plasma Lactic Acid Chris 2.7 H* (0.7-2.0) mmol/L AST (17-59) U/L ALT (4-49) U/L Urine Glucose (UA) (Negative) Urine Ketones (Negative) Urine Blood (Negative) Urine RBC (0-5) /hpf Urine Mucus (None) /hpf Laboratory Results WBC 11.2 k/uL (3.8-10.6) H 08/29/20 20:58 RBC 4.82 m/uL (4.30-5.90) 08/29/20 20:58 Hgb 15.1 gm/dL (13.0-17.5) 08/29/20 20:58 Hct 43.2 % (39.0-53.0) 08/29/20 20:58 MCV 89.5 fL (80.0-100.0) 08/29/20 20:58 MCH 31.4 pg (25.0-35.0) 08/29/20 20:58 MCHC 35.1 g/dL (31.0-37.0) 08/29/20 20:58 RDW 13.6 % (11.5-15.5) 08/29/20 20:58 Plt Count 128 k/uL (150-450) L 08/29/20 20:58 MPV 10.6 08/29/20 20:58 Neutrophils % 80 % 08/29/20 20:58 Lymphocytes % 9 % 08/29/20 20:58 Monocytes % 7 % 08/29/20 20:58 Eosinophils % 1 % 08/29/20 20:58 Basophils % 0 % 08/29/20 20:58 Neutrophils # 9.0 k/uL (1.3-7.7) H 08/29/20 20:58 Lymphocytes # 1.0 k/uL (1.0-4.8) 08/29/20 20:58 Monocytes # 0.8 k/uL (0-1.0) 08/29/20 20:58 Eosinophils # 0.2 k/uL (0-0.7) 08/29/20 20:58 Basophils # 0.0 k/uL (0-0.2) 08/29/20 20:58 Sodium 136 mmol/L (137-145) L 08/29/20 20:58 Potassium 4.8 mmol/L (3.5-5.1) 08/29/20 20:58 Chloride 101 mmol/L (98-107) 08/29/20 20:58 Carbon Dioxide 22 mmol/L (22-30) 08/29/20 20:58 Anion Gap 13 mmol/L 08/29/20 20:58 BUN 23 mg/dL (9-20) H 08/29/20 20:58 Creatinine 1.36 mg/dL (0.66-1.25) H 08/29/20 20:58 Est GFR (CKD-EPI)AfAm 60 (>60 ml/min/1.73 sqM) 08/29/20 20:58 Est GFR (CKD-EPI)NonAf 52 (>60 ml/min/1.73 sqM) 08/29/20 20:58 Glucose 302 mg/dL (74-99) H 08/29/20 20:58 POC Glucose (mg/dL) 264 mg/dL (75-99) H 08/30/20 11:56 POC Glu [employer] ID Micki Jones 08/30/20 11:56 Lactic Ac Sepsis Rflx Y 08/30/20 11:47 Plasma Lactic Acid Chris 2.7 mmol/L (0.7-2.0) H* 08/30/20 11:20 Calcium 9.7 mg/dL (8.4-10.2) 08/29/20 20:58 Total Bilirubin 0.8 mg/dL (0.2-1.3) 08/29/20 20:58 AST 70 U/L (17-59) H 08/29/20 20:58 ALT 52 U/L (4-49) H 08/29/20 20:58 Alkaline Phosphatase 77 U/L (38-126) 08/29/20 20:58 Total Protein 7.6 g/dL (6.3-8.2) 08/29/20 20:58 Albumin 4.8 g/dL (3.5-5.0) 08/29/20 20:58 Lipase 114 U/L (23-300) 08/29/20 20:58 Urine Color Yellow 08/29/20 22:23 Urine Appearance Clear (Clear) 08/29/20 22:23 Urine pH 5.0 (5.0-8.0) 08/29/20 22:23 Ur Specific [place] 1.009 (1.001-1.035) 08/29/20 22:23 Urine Protein Negative (Negative) 08/29/20 22:23 Urine Glucose (UA) 4+ (Negative) H 08/29/20 22:23 Urine Ketones Trace (Negative) H 08/29/20 22:23 Urine Blood Moderate (Negative) H 08/29/20 22:23 Urine Nitrite Negative (Negative) 08/29/20 22:23 Urine Bilirubin Negative (Negative) 08/29/20 22:23 Urine Urobilinogen <2.0 mg/dL (<2.0) 08/29/20 22:23 Ur Leukocyte Esterase Negative (Negative) 08/29/20 22:23 Urine RBC 39 /hpf (0-5) H 08/29/20 22:23 Urine WBC <1 /hpf (0-5) 08/29/20 22:23 Urine Mucus Rare /hpf (None) H 08/29/20 22:23 Acetone, Qual Negative (Negative) 08/29/20 20:58 Coronavirus (PCR) Not Detected (Not Detectd) 08/29/20 23:44 Thrombosis Risk Factor Assmnt - DVT/VTE Prophylaxis DVT/VTE Prophylaxis: Pharmacologic Prophylaxis ordered - Choose All That Apply Each Risk Factor Represents 3 Points: Age 75 years or older Thrombosis Risk Factor Assessment Total Risk Factor Score: 3 Thrombosis Risk Factor Assessment Level: Moderate Risk Assessment and Plan Plan: 1. Acute obstructive uropathy secondary to a large obstructing stone with hydronephrosis, right mid ureter, status post laser lithotripsy, on 08/30/2020, by Dr. Wilson, along with urethroscopy, and stent placement right side. IV fluids for hydration, monitor for gross hematuria as the patient is on factor X a inhibition. 2. Acute kidney insufficiency secondary to obstructive uropathy right side, with current creatinine of 1.3, baseline is 1.15 IV hydration, status post laser ablation of the right ureteral stone as above. 3. Prior history of nephrolithiasis, this will be his second episode of renal colic , follows with urology, outpatient follow-up for renal stone management 4. Chronic atrial fibrillation, onliquis these is currently held 5Long-term anticoagulation for atrial fibrillation, Ahlquist is on hold starting today, August 30, and will be helpful daily secondary to urology procedure 6. Presence of right-sided ileostomy bag, no evidence of obstruction 7 Ulcerative colitis under the care of Dr. Webb and [facility]. Patient is status post ileostomy status post total colectomy 8 Benign prostatic hypertrophy. Continue finasteride 5 mg daily and Flomax 0.4 mg daily. 9 Diabetes mellitus type 2. Continue Tradjenta 5mg daily and continue Humalog scale before meals and at bedtime. 10 Hyperlipidemia. Continue atorvastatin daily. 11. Hypertension. Continue Toprol-XL 50 mg daily, Norvasc 5 mg daily. Losartan on hold. 12 Recurrent depression. Continue Cymbalta 60 mg daily. 13 History of CVA and TIA. Continue Lipitor 40 mg at bedtime for secondary prevention. 14 Gastric intestinal prophylaxis. Protonix. 15. DVT prophylaxis. Early ambulation, SCDs and BRADEN hose Patient will be admitted to the hospital for a minimum of 2 night stay. Discharge plan: Return home
[2020-08-30 17:39] LABS: Glucose,Whole Blood 333 mg/dL (75-99)
[2020-08-30 20:22] VITALS: RESP 16
[2020-08-30 20:25] LABS: Glucose,Whole Blood 368 mg/dL (75-99)
[2020-08-30] MEDS: TROSPIUM CHLORIDE 20 MG TABLET PO SCH (20:39)
[2020-08-30] MEDS ORDERED: INSULIN DETEMIR (LEVEMIR) 100 UNIT/ML SYR SQ SCH (21:00)
[2020-08-30] MEDS ORDERED: TAMSULOSIN 0.4 MG CAP.ER.24H PO SCH (21:00)
[2020-08-30] MEDS ORDERED: APIXABAN 5 MG TAB PO SCH (21:00)
[2020-08-30] MEDS ORDERED: METOPROLOL SUCCINATE (ER) 50 MG TAB.ER.24H PO SCH (21:00)
[2020-08-30] MEDS ORDERED: ATORVASTATIN 40 MG TAB PO SCH (21:00)
[2020-08-30] MEDS ORDERED: FERROUS SULFATE 325 MG TAB PO SCH (21:00)
[2020-08-31 05:09] VITALS: BP 127/72; PULSE 78; TEMP 97.9
[2020-08-31 07:04] LABS: Glucose,Whole Blood 87 mg/dL (75-99)
[2020-08-31] MEDS: INSULIN ASPART (NovoLOG) 100 UNIT/ML VIAL SQ SCH (07:30)
[2020-08-31] MEDS ORDERED: PANTOPRAZOLE 40 MG TABLET PO SCH (07:30)
[2020-08-31] MEDS: DULoxetine HCL 60 MG CAPSULE.DR PO SCH (07:34)
[2020-08-31] MEDS: TROSPIUM CHLORIDE 20 MG TABLET PO SCH (07:35)
[2020-08-31] MEDS: FINASTERIDE 5 MG TAB PO SCH (07:35)
[2020-08-31] MEDS ORDERED: CHOLECALCIFEROL 25 MCG (1000 IU) TABLET PO SCH (09:00)
[2020-08-31] MEDS ORDERED: MULTIVITAMINS, THERA 1 EACH TAB PO SCH (09:00)
[2020-08-31] MEDS ORDERED: ASCORBIC ACID 500 MG TAB PO SCH (09:00)
[2020-08-31] MEDS ORDERED: PIOGLITAZONE 30 MG TAB PO SCH (09:00)
[2020-08-31 09:27] LABS: African American GFR (CKD) 86.8 (60.0-200.0); Anion Gap 12.2 mmol/L (4.00-12.00); Calcium 8.7 mg/dL (8.7-10.3); Carbon Dioxide 22.8 mmol/L (21.6-31.8); Non-African American GFR(CKD) 74.9 (60.0-200.0); Potassium 3.8 mmol/L (3.5-5.5)
--- NOTE | 2020-08-31 09:32 | P.DS ---
Providers Date of admission: 08/29/20 23:07 Expected date of discharge: 08/31/20 Attending physician: Miguel Bautista Consults: 08/29/20 23:14 Consult Physician Stat Consulting Provider: Mitesh Wilson Consult Reason/Comments: 13 mm renal stone, hydroureter Do you want consulting provider notified?: Yes Primary care physician: [facility] Course: This is a 70-year-old male patient of Dr. Bautista with past medical history of ulcerative colitis with ileostomy 2018 , CVA in 2015 and TIA in 2018, diabetes mellitus type 2, benign prostatic hypertrophy, nephrolithiasis, hypertension, hyperlipidemia. He presented to the emergency room secondary to right lower quadrant abdominal pain, which started a few hours prior to admission, this was nonradiating, not accompanied by any dysuria hematuria, has some nausea and vomiting, pain persisted for which now he was seen in emergency room. He does have a chronic ileostomy bag which hasn't been emptying since 5 PM, and he feels like he has a small bowel obstruction similar to the previous episodes. Incidentally when he imaged in the emergency room CAT scan shows a large obstructing 13 mm right mid ureteral stone he does have microscopic hematuria. There is no gross hematuria, next Emergency room, CAT scan shows large obstructing calculus right midureter, with hydronephrosis hydroureter, 13 mm, with no bladder distention, there is no free fluid in the pelvis, no evidence of pelvic mass. Ileostomy on the right side of the abdomen without any evidence of bowel obstruction. Patient was seen by Dr. Wilson for which she underwent on August 30 day laser lithotripsy. Right-sided uresteroscopy with baskeing of stone, and stent placement right side t. He is on adequate, we have discontinued the Jai for the next few days, and monitor for ongoing gross hematuria. IV for hydration, most likely to be ischarged in morning, 08/31: Patient has been seen by urology this morning cleared for discharge. H ematuria has also cleared and patient will be resumed on eliquis at home. Patient has been afebrile, heart rate 78, blood pressure 122/72, pulse ox 95% on room air. Repeat blood work reveals W BC 9.8, hemoglobin 12.5, platelet count 116. Electrolytes normal, BUN 18 and creatinine 1. Patient will be discharged home today in stable condition. DISCHARGE DIAGNOSES 1. Acute obstructive uropathy secondary to a large obstructing stone with hydronephrosis, right mid ureter, status post laser lithotripsy, on 08/30/2020, by Dr. Wilson, along with urethroscopy, and stent placement right side. 2. Acute kidney injury, ckd 2. 3. Prior history of nephrolithiasis, this will be his second episode of renal colic 4. Chronic atrial fibrillation 5. Long-term anticoagulation for atrial fibrillation, 6. Presence of right-sided ileostomy bag, no evidence of obstruction 7. Ulcerative colitis under the care of Dr. Escoto and [facility]. 8. Benign prostatic hypertrophy. 9. Diabetes mellitus type 2. 10 Hyperlipidemia. 11. Hypertension. 12. Recurrent depression. 13. History of CVA and TIA. 14. Thrombocytopenia. DISCHARGE PLAN Home Impression and plan of care have been directed as dictated by the signing physician. Azucena Goode nurse practitioner acting as scribe for signing physician. Patient Condition at Discharge: Good Plan - Discharge Summary Discharge Rx Participant: Yes New Discharge Prescriptions: Continue Multivit-Min/FA/Lycopen/Lutein [Centrum Silver Men Tablet] 1 cap PO DAILY DULoxetine HCL [Cymbalta] 60 mg PO DAILY Trospium Chloride [Sanctura] 20 mg PO BID Tamsulosin [Flomax] 0.4 mg PO HS Finasteride [Proscar] 5 mg PO DAILY Atorvastatin [Lipitor] 40 mg PO HS Cholecalciferol [Vitamin D3 (25 Mcg = 1000 Iu)] 1,000 unit PO DAILY Ferrous Sulfate [Iron (65 MG Elemental)] 65 mg PO HS Metoprolol Succinate (ER) [Toprol XL] 50 mg PO HS Omeprazole 40 mg PO DAILY Cranberry 450mg 1 tab PO HS Ascorbic Acid [Vitamin C] 1,000 mg PO DAILY Insulin Glargine,Hum.rec.anlog [Toujeo Max Solostar] 60 unit SQ HS Apixaban [Eliquis] 5 mg PO BID Loratadine [Claritin] 10 mg PO BID PRN PRN Reason: Allergy Symptoms Guar Gum (Unknown Strength) 1 tab PO BID@0200,1400 Pioglitazone [Actos] 30 mg PO DAILY Turmeric Root Extract [Turmeric] 2,000 mg PO BID Discharge Medication List Atorvastatin [Lipitor] 40 mg PO HS 02/06/17 [History] DULoxetine HCL [Cymbalta] 60 mg PO DAILY 02/06/17 [History] Finasteride [Proscar] 5 mg PO DAILY 02/06/17 [History] Multivit-Min/FA/Lycopen/Lutein [Centrum Silver Men Tablet] 1 cap PO DAILY 02/06/17 [History] Tamsulosin [Flomax] 0.4 mg PO HS 02/06/17 [History] Trospium Chloride [Sanctura] 20 mg PO BID 02/06/17 [History] Cholecalciferol [Vitamin D3 (25 Mcg = 1000 Iu)] 1,000 unit PO DAILY 11/19/17 [History] Ferrous Sulfate [Iron (65 MG Elemental)] 65 mg PO HS 12/18/17 [History] Metoprolol Succinate (ER) [Toprol XL] 50 mg PO HS 12/05/18 [History] Omeprazole 40 mg PO DAILY 12/05/18 [History] Apixaban [Eliquis] 5 mg PO BID 08/29/20 [History] Ascorbic Acid [Vitamin C] 1,000 mg PO DAILY 08/29/20 [History] Cranberry 450mg 1 tab PO HS 08/29/20 [History] Guar Gum (Unknown Strength) 1 tab PO BID@0200,1400 08/29/20 [History] Insulin Glargine,Hum.rec.anlog [Toujeo Max Solostar] 60 unit SQ HS 08/29/20 [History] Loratadine [Claritin] 10 mg PO BID PRN 08/29/20 [History] Pioglitazone [Actos] 30 mg PO DAILY 08/29/20 [History] Turmeric Root Extract [Turmeric] 2,000 mg PO BID 08/29/20 [History] Follow up Appointment(s)/Referral(s): Mitesh Wilson MD [STAFF PHYSICIAN] - 09/07/20 11:00 am (Stent removal September 07 11:00) Miguel Bautista MD [Primary Care Provider] - 09/10/20 11:15 am Patient Instructions/Handouts: Kidney Stones (DC), Abdominal Pain (ED), Ure teral Stones (DC) Activity/Diet/Wound Care/Special Instructions: per Dr. Wilson, may restart eliquis tomorrow Discharge Disposition: HOME SELF-CARE
[2020-08-31] MEDS: SODIUM CHLORIDE 0.9% 1,000 ML IV SCH (09:33)
[2020-08-31 10:44] LABS: Basophils # (A) 0.02 X 10*3/uL (0.00-0.10); Basophils % (A) 0.2 %; Eosinophils # (A) 0.01 X 10*3/uL (0.04-0.35); Eosinophils % (A) 0.1 %; HCT 37.6 % (39.6-50.0); HGB 12.5 g/dL (13.0-17.0); Lymphocytes # (A) 1.01 X 10*3/uL (0.90-5.00); Lymphocytes % (A) 10.3 %; MCH 30.6 pg (27.0-32.0); MCHC 33.2 g/dL (32.0-37.0); MCV 91.9 fL (80.0-97.0); Mean Platelet Volume 13.8 fL (9.5-12.2); Monocytes # (A) 1.19 X 10*3/uL (0.20-1.00); Monocytes % (A) 12.1 %; Neutrophils # (A) 7.53 X 10*3/uL (1.80-7.70); Neutrophils % (A) 76.7 %; Platelet Count 116 X 10*3/uL (140-440); RBC 4.09 X 10*6/uL (4.40-5.60); RDW 13.5 % (11.5-14.5); WBC 9.82 X 10*3/uL (4.50-10.00)
--- NOTE | 2020-08-31 12:47 | P.PN ---
Subjective Progress Note Date: 08/31/20 POD #1 S/P right ureteroscopy with holmium laser and stent placement. Pain is controlled this am, indicates his hematuria is resolving. Objective - Vital Signs Vital signs: Vital Signs Temp 97.9 F 08/31/20 02:00 Pulse 78 08/31/20 02:00 Resp 16 08/31/20 02:00 BP 127/72 08/31/20 02:00 Pulse Ox 95 08/31/20 02:00 Intake & Output 08/30/20 08/31/20 08/31/20 18:59 06:59 18:59 Intake Total 902 Output Total 5 Balance 897 Intake: IV 902 Output: Estimated Blood Loss 5 Other: Voiding Method Urinal Toilet # Voids 3 2 - Constitutional General appearance: Present: no acute distress - Psychiatric Psychiatric: Present: A&O x's 3 - Labs CBC & Chem 7: 08/31/20 04:46 08/31/20 04:46 Labs: Abnormal Lab Results - Last 24 Hours (Table) 08/30/20 08/30/20 08/30/20 Range/Units 15:27 17:36 19:40 RBC (4.40-5.60) X 10*6/uL Hgb (13.0-17.0) g/dL Hct (39.6-50.0) % Plt Count (140-440) X 10*3/uL Plt Count Comment MPV (9.5-12.2) fL Immature Gran # (0.00-0.04) X 10*3/uL Monocytes # (0.20-1.00) X 10*3/uL Eosinophils # (0.04-0.35) X 10*3/uL Anion Gap (4.00-12.00) mmol/L POC Glucose (mg/dL) 333 H (75-99) mg/dL Plasma Lactic Acid Chris 4.7 H* 4.4 H* (0.7-2.0) mmol/L 08/30/20 08/30/20 08/31/20 Range/Units 20:23 22:51 04:46 RBC 4.09 L (4.40-5.60) X 10*6/uL Hgb 12.5 L (13.0-17.0) g/dL Hct 37.6 L (39.6-50.0) % Plt Count 116 L (140-440) X 10*3/uL Plt Count Comment DECREASED A MPV 13.8 H (9.5-12.2) fL Immature Gran # 0.06 H (0.00-0.04) X 10*3/uL Monocytes # 1.19 H (0.20-1.00) X 10*3/uL Eosinophils # 0.01 L (0.04-0.35) X 10*3/uL Anion Gap (4.00-12.00) mmol/L POC Glucose (mg/dL) 368 H (75-99) mg/dL Plasma Lactic Acid Chris 3.4 H* (0.7-2.0) mmol/L 08/31/ Range/Units 04:46 RBC (4.40-5.60) X 10*6/uL Hgb (13.0-17.0) g/dL Hct (39.6-50.0) % Plt Count (140-440) X 10*3/uL Plt Count Comment MPV (9.5-12.2) fL Immature Gran # (0.00-0.04) X 10*3/uL Monocytes # (0.20-1.00) X 10*3/uL Eosinophils # (0.04-0.35) X 10*3/uL Anion Gap 12.20 H (4.00-12.00) mmol/L POC Glucose (mg/dL) (75-99) mg/dL Plasma Lactic Acid Chris (0.7-2.0) mmol/L Assessment and Plan Assessment: 70 yo male with hx of 1.3 cm right sided ureteral stone S/P right URS -Ok for discharge from urology standpoint -F/U 1-2 weeks for stent removal
== END 2020-08-31 10:41 | disposition home or self-care (01) | DRG 660 ==
LOC: EC 20:24 → 5NMEDONC 23:07
PROVIDERS: ADMIT Internal Medicine Geriatric Medicine; ATTEND Internal Medicine Geriatric Medicine
PROC: BT1D1ZZ Fluoroscopy of Right Kidney, Ureter and Bladder using Low Osmolar Contrast (ICD-10-PCS; principal; 2020-08-30 08:30)
PROC: 0TC68ZZ Extirpation of Matter from Right Ureter, Via Natural or Artificial Opening Endoscopic (ICD-10-PCS; principal; 2020-08-30 08:30)
PROC: 0T768DZ Dilation of Right Ureter with Intraluminal Device, Via Natural or Artificial Opening Endoscopic (ICD-10-PCS; principal; 2020-08-30 08:30)
DX: N13.2 Hydronephrosis with renal and ureteral calculous obstruction (principal); I48.20 Chronic atrial fibrillation, unspecified; F33.9 Major depressive disorder, recurrent, unspecified; K51.90 Ulcerative colitis, unspecified, without complications; N17.9 Acute kidney failure, unspecified; D69.6 Thrombocytopenia, unspecified; Z43.2 Encounter for attention to ileostomy; Z79.4 Long term (current) use of insulin; E11.22 Type 2 diabetes mellitus with diabetic chronic kidney disease; Z20.822 Contact with and (suspected) exposure to COVID-19; N18.2 Chronic kidney disease, stage 2 (mild); I12.9 Hypertensive chronic kidney disease with stage 1 through stage 4 chronic kidney disease, or unspecified chronic kidney disease; N40.0 Benign prostatic hyperplasia without lower urinary tract symptoms; E78.5 Hyperlipidemia, unspecified; G47.30 Sleep apnea, unspecified; H91.90 Unspecified hearing loss, unspecified ear; Z79.01 Long term (current) use of anticoagulants; Z79.899 Other long term (current) drug therapy; Z87.442 Personal history of urinary calculi; Z87.891 Personal history of nicotine dependence; Z87.19 Personal history of other diseases of the digestive system; Z90.49 Acquired absence of other specified parts of digestive tract; Z86.73 Personal history of transient ischemic attack (TIA), and cerebral infarction without residual deficits; Z96.1 Presence of intraocular lens; Z98.41 Cataract extraction status, right eye; Z98.42 Cataract extraction status, left eye; Z96.652 Presence of left artificial knee joint; Z86.69 Personal history of other diseases of the nervous system and sense organs; Z98.890 Other specified postprocedural states; Z88.5 Allergy status to narcotic agent; Z83.3 Family history of diabetes mellitus; Z80.0 Family history of malignant neoplasm of digestive organs; Z82.49 Family history of ischemic heart disease and other diseases of the circulatory system; Z81.1 Family history of alcohol abuse and dependence; Z81.2 Family history of tobacco abuse and dependence
CPT/HCPCS: 36415; 74018; 74177; 74420; 80048; 80053; 81001; 82009; 83605; 83690; 85025; 87635; 96374; 96375; 99285

== ENCOUNTER → 2020-09-04 | Outpatient (CLI) | payer MEDICARE ==
[2020-09-04 16:59] LABS: Bacteria,Urine Moderate /hpf; RBC,Urine >182 /hpf (0-5); WBC,Urine 66 /hpf (0-5)
[2020-09-04 17:00] LABS: Appearance,Urine Bloody (Clear); Color,Urine Red
[2020-09-05 02:14] LABS: African American GFR (CKD) 69.6 (60.0-200.0); Albumin 4.8 g/dL (3.80-4.90); Albumin/Globulin Ratio 2.4 (1.60-3.17); Anion Gap 11.9 mmol/L (4.00-12.00); Calcium 9.7 mg/dL (8.7-10.3); Carbon Dioxide 19.1 mmol/L (21.6-31.8); Non-African American GFR(CKD) 60.1 (60.0-200.0); Potassium 4.4 mmol/L (3.5-5.5); Total Bilirubin 0.6 mg/dL (0.2-1.2); Total Protein 6.8 g/dL (6.2-8.2)
[2020-09-05 02:17] LABS: HCT 41.7 % (39.6-50.0); MCH 30.5 pg (27.0-32.0); MCHC 33.6 g/dL (32.0-37.0); MCV 90.8 fL (80.0-97.0); Mean Platelet Volume 14.2 fL (9.5-12.2); Platelet Count 145 X 10*3/uL (140-440); RBC 4.59 X 10*6/uL (4.40-5.60); RDW 13.3 % (11.5-14.5); WBC 7.37 X 10*3/uL (4.50-10.00)
== END | disposition home or self-care (01) ==
LOC: LABWHC1 15:55
PROVIDERS: ATTEND Nurse Practitioner Gerontology
DX: N18.9 Chronic kidney disease, unspecified (principal); R30.0 Dysuria
CPT/HCPCS: 36415; 80053; 81001; 85027; 87086

== ENCOUNTER → 2020-10-27 | Outpatient (CLI) | payer MEDICARE ==
--- NOTE | 2020-10-27 09:10 | MR ---
EXAMINATION TYPE: MR brain wo/w con DATE OF EXAM: 10/27/2020 8:37 AM COMPARISON: NONE HISTORY: Memory loss, Lt side weakness, Loss of balance CONTRAST: Patient received 9 mL intravenous Gadavist gadolinium contrast. Multiplanar and multispin-echo imaging of the brain was performed . Pre and post contrast enhanced i mages are obtained. The ventricles, basal cisterns and sulci overlying the cerebral convexities are mildly enlarged. There is evidence of moderate periventricular white matter ischemic demyelination. Moderate Remote deep white matter insults are also noted. No acute edema is seen on diffusion weighted imaging. There is no evidence for midline shift or mass effect. Acute intracranial hemorrhage or extra-axial collection is not evident. No enhancing lesions are seen. The paranasal sinuses and mastoid air cells are well-aerated. IMPRESSION: Age-related atrophic and chronic small vessel ischemic change. No acute intracranial process at this time. No enhancing lesions are seen.
== END | disposition home or self-care (01) ==
LOC: RADMRIMAIN 07:29
PROVIDERS: ATTEND Nurse Practitioner Family
DX: I67.82 Cerebral ischemia (principal); G31.9 Degenerative disease of nervous system, unspecified
CPT/HCPCS: 70553; A9585

== ENCOUNTER → 2021-01-27 | Outpatient (CLI) | payer MEDICARE ==
[2021-01-27 11:02] LABS: HCT 45.5 % (39.0-53.0); HGB 15.3 gm/dL (13.0-17.5); MCHC 33.6 g/dL (31.0-37.0); MCV 95.1 fL (80.0-100.0); Mean Platelet Volume 10.5; Platelet Count 135 k/uL (150-450); RBC 4.79 m/uL (4.30-5.90); RDW 13.3 % (11.5-15.5); WBC 7.2 k/uL (3.8-10.6)
[2021-01-27 11:21] LABS: Potassium 5.2 mmol/L (3.5-5.1)
== END | disposition home or self-care (01) ==
LOC: LABPAT 10:16
PROVIDERS: ATTEND Internal Medicine Interventional Cardiology
DX: Z01.812 Encounter for preprocedural laboratory examination (principal); R07.9 Chest pain, unspecified; R06.02 Shortness of breath
CPT/HCPCS: 36415; 80051; 82565; 84520; 85027

== ENCOUNTER 2021-02-03 10:27 | Day surgery (SDC) | payer MEDICARE ==
[2021-02-01 10:19] VITALS: BMI 25.7
[~2021-02-03 10:27] MED LIST changes: +ALPRAZolam 0.25 MG TAB PO PRN; +ALPRAZolam 0.5 MG TAB PO PRN; +ASPIRIN 325 MG TAB PO STA; +ATORVASTATIN 80 MG TAB PO STA; -INFLIXIMAB-DYYB 400 MG in SODIUM CHLORIDE 0.9% 250 ML IV NR; +NITROGLYCERIN SL TABS 0.4 MG TAB SUBLINGUAL PRN; +SODIUM CHLORIDE 0.9% 1,000 ML in EMPTY BAG 1 BAG IV ONE; -SODIUM CHLORIDE 0.9% 500 ML in EMPTY BAG 1 BAG IV PRN
[2021-02-03] MEDS ORDERED: SODIUM CHLORIDE 0.9% 1,000 ML IV ONE (10:45)
[2021-02-03 10:56] LABS: Glucose,Whole Blood 151 mg/dL (75-99)
[2021-02-03 11:00] LABS: Mean Platelet Volume 10.3; Platelet Count 167 k/uL (150-450)
[2021-02-03] MEDS ORDERED: VERAPAMIL 2.5 MG/ML 2 ML AMP ONE (11:03)
[2021-02-03] MEDS ORDERED: HEPARIN SODIUM 1,000 UN/ML (10ML VL) ONE (11:04)
[2021-02-03] MEDS ORDERED: LIDOCAINE 1% INJ 10MG/ML (20 ML MDV) ONE (11:04)
[2021-02-03 11:10] VITALS: RESP 18; TEMP 98.5
[2021-02-03] MEDS ORDERED: MIDAZOLAM 2 MG/2 ML VIAL IV ONE (11:34)
[2021-02-03] MEDS ORDERED: LIDOCAINE 1% INJ 10MG/ML (20 ML MDV) SQ ONE (11:35)
[2021-02-03] MEDS: VERAPAMIL SYRINGE (5 MG/10 ML) INTRAARTER ONE ×2 (11:38→12:00)
[2021-02-03] MEDS ORDERED: HEPARIN SODIUM 1,000 UN/ML (10ML VL) IV ONE (11:39)
[2021-02-03] MEDS ORDERED: IOPAMIDOL-370 100ML BTL INJ ONE (12:01)
[2021-02-03] MEDS ORDERED: RX INFO: IV CONTRAST WAS GIVEN 1 EACH MISC MISCELLANE PRN (12:19)
[2021-02-03] MEDS ORDERED: SODIUM CHLORIDE 0.9% 1,000 ML IV SCH (12:30)
--- NOTE | 2021-02-03 12:48 | CC ---
CARDIAC CATHETERIZATION REPORT DATE OF SERVICE: 02/03/2021 PROCEDURE: Left heart catheterization and coronary angiography. PERFORMED BY: Dr. Israel Gaitan. Moderate conscious sedation time was 27 minutes. Patient was administered Versed. Oxygen saturation, hemodynamics and EKG were monitored closely. 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 He has ulcerative colitis, for which he had a J- pouch for a long time, and in 2017 he went on to have an ileostomy, which he is very much adjusted to, and it is functioning well. He has had episodes of dehydration from time to time. He had a TIA in Jul 2017 of unclear etiology. He did not have any documented atrial fibrillation, but he has been on Eliquis 5 mg b.i.d. He had episodes of unstable angina and a recent echo revealed wall motion abnormality in the anterior wall with ejection fraction in the 40% range. He was advised cardiac catheterization because of a high suspicion index for significant CAD, given his symptoms and wall motion abnormality. Risks, benefits, options and rationale were explained to the patient and his , and he was brought in for the procedure electively. PROCEDURE NOTE: Under local anesthesia and strict aseptic precautions, a 6-Serbian introducer was placed in the right radial artery. Using JL3.5 and JR4 catheters, I performed coronary angiography. The same right catheter was used to check LV pressures, but LV gram was not performed. Patient tolerated the procedure well. The sheath was taken out and TR band applied as per protocol. Saturation in the fingers of the right hand was 96%. CARDIAC CATHETERIZATION FINDINGS: The left ventricular end-diastolic pressure was 6 mmHg without any gradient across the aortic valve. CORONARY ANGIOGRAPHY FINDINGS: RIGHT CORONARY ARTERY: This is a very dominant vessel, has no significant disease in the proximal portion. In the mid portion there is a 30% to 40% narrowing. The caliber then improves and bifurcates into a larger PLV and small PDA. The PLV is a large- caliber vessel. In the mid portion of the PLV there is an 80% narrowing noted, best seen in the AP cranial projection. This seems to be a significant lesion, and beyond it the caliber of the vessel is good and appears to be graftable. LEFT MAIN CORONARY ARTERY: This is a short patent vessel. At the ostium there is no significant disease. Distally before bifurcation there is a 60% to 70% narrowing of the left main and then it trifurcates into circumflex, LAD and ramus intermedius. The ramus in some views looks almost like a diagonal branch as well. The left main therefore has a 65% to 70% distal lesion before bifurcation. LEFT ANTERIOR DESCENDING CORONARY ARTERY: Good-caliber vessel, has a mid lesion of about 80% which is camouflaged by a septal branch and appears to be a significant lesion which is long, and there is a long area of calcification as well. Proximal LAD gives off very small diagonal and septal branch, then there is a long lesion of about 80%, and septal branch comes off from this. Then the vessel runs all the way to the apex. The caliber of the vessel is somewhat small and appears to be diffusely diseased. The diagonal branch that comes off from the LAD which almost looks like a ramus also has some diffuse disease in it and appears to be graftable. LEFT POSTERIOR CIRCUMFLEX CORONARY ARTERY: Technically this is a nondominant vessel that runs in the AV groove and gives off a small distal posterolateral branch. The circumflex does not appear to be an easily graftable vessel and appears to run posteriorly. Left ventriculogram was not performed. FINAL IMPRESSION: This patient has normal filling pressures. No gradient across the aortic valve. He has a right-dominant system with a PLV branch of RCA having 80% stenosis. Left main has about a 65% to 70% narrowing. LAD has a mid 80% lesion. The diagonal has diffuse 60% disease proximally. Circumflex that runs in the AV groove has diffuse disease but no focal stenosis. LV gram was not performed. RECOMMENDATIONS: I am recommending aortocoronary bypass surgery with a graft to the LAD, diagonal/ramus, possibly to the circumflex and to the PLV branch of RCA. Details were discussed with the patient and his and family members. He will have a carotid Doppler and a limited echo again today, and I have spoken to Dr. Ajay Dhillon, who will see him in the office tomorrow. MMODL / KALEYN: [id number] / MTDD
[2021-02-03] MEDS ORDERED: [UNRECOGNIZED DRUG - OTHER] PO SCH (14:00)
[2021-02-03 14:20] LABS: Basophils % (A) 0 %; Eosinophils # (A) 0.2 k/uL (0-0.7); Eosinophils % (A) 3 %; HCT 41.2 % (39.0-53.0); HGB 14.3 gm/dL (13.0-17.5); Lymphocytes # (A) 1.2 k/uL (1.0-4.8); Lymphocytes % (A) 18 %; MCH 32.6 pg (25.0-35.0); MCHC 34.6 g/dL (31.0-37.0); MCV 94.5 fL (80.0-100.0); Mean Platelet Volume 10.1; Monocytes # (A) 0.4 k/uL (0-1.0); Monocytes % (A) 7 %; Neutrophils # (A) 4.6 k/uL (1.3-7.7); Neutrophils % (A) 70 %; Platelet Count 116 k/uL (150-450); RBC 4.37 m/uL (4.30-5.90); WBC 6.5 k/uL (3.8-10.6)
[2021-02-03 14:35] LABS: Partial Thromboplastin Time 25.7 sec (22.0-30.0); Prothrombin Time 10.6 sec (9.0-12.0)
[2021-02-03 14:40] LABS: Albumin 4.3 g/dL (3.5-5.0); Calcium 9.4 mg/dL (8.4-10.2); Magnesium 2.2 mg/dL (1.6-2.3); Potassium 4.6 mmol/L (3.5-5.1); Total Bilirubin 0.5 mg/dL (0.2-1.3); Total Protein 6.9 g/dL (6.3-8.2)
[2021-02-03 15:55] LABS: Appearance,Urine Clear (Clear); Bilirubin,Urine Negative (Negative); Blood,Urine Negative (Negative); Color,Urine Yellow; Glucose,Urine (UA) Negative (Negative); Ketones,Urine Negative (Negative); Leukocyte Esterase,Urine Negative (Negative); Nitrite,Urine Negative (Negative); PH, Urine 5.5 (5.0-8.0); Protein,Urine Negative (Negative); Specific Gravity,Urine 1.051 (1.001-1.035); Urobilinogen,Urine <2.0 mg/dL (<2.0)
--- NOTE | 2021-02-03 16:09 | US ---
EXAMINATION TYPE: US carotid duplex BILAT DATE OF EXAM: 02/03/2021 COMPARISON: NONE CLINICAL HISTORY: R/O Stenosis. pre op cardiac surgery. dizziness EXAM MEASUREMENTS: RIGHT: Peak Systolic Velocity (PSV) cm/sec ----- Right CCA: 87.7 ----- Right ICA: 86.4 ----- Right ECA: 84.3 ICA/CCA ratio: 0.76 RIGHT: End Diastole cm/sec ----- Right CCA: 26.0 ----- Right ICA: 24.2 ----- Right ECA: 7.2 LEFT: Peak Systolic Velocity (PSV) cm/sec ----- Left CCA: 101 ----- Left ICA: 70.8 ----- Left ECA: 87.7 ICA/CCA ratio: 0.74 LEFT: End Diastole cm/sec ----- Left CCA: 27.5 ----- Left ICA: 75.2 ----- Left ECA: 24.0 VERTEBRALS (direction of flow): Right Vertebral: Antegrade Left Vertebral: Antegrade Rhythm: Normal A scale, color Doppler, spectral Doppler imaging performed of the carotid arteries. Waveform analysis does not show significant stenosis of the internal carotid arteries. Mild plaque bilateral bifurcati ons. No evidence of increased velocities IMPRESSION: No hemodynamic significant stenosis of the proximal internal carotid arteries by Doppler criteria, an indirect measurement of carotid stenosis NASCET criteria was used in interpretation of this exam? Criteria for Assigning % of Stenosis / Diameter reduction (Estimation based on the indirect measurements of the internal carotid artery velocities (ICA PSV). 1. Normal (no stenosis)=ICA PSV < 125 cm/s: ratio < 2.0: ICA EDV<40 cm/s. 2. Less than 50% stenosis=ICA PSV < 125 cm/s: ratio < 2.0: ICA EDV<40 cm/s. 3. 50 to 69% stenosis=ICA PSV of 125 to 230 cm/s: ration 2.0 ? 4.0: ICA EDV 40-100 cm/s. 4. Greater than 70% stenosis to near occlusion= ICA PSV > 230 cm/s: ratio > 4.0: ICA EDV > 100 cm/s. 5. Near occlusion= ICA PSV velocities may be low or undetectable: variable ratio and ICA EDV. 6. Total occlusion=unable to detect flow.
[2021-02-03 17:44] VITALS: BP 100/70; PULSE 78
[2021-02-03] MEDS ORDERED: ATORVASTATIN 40 MG TAB PO SCH (21:00)
[2021-02-03] MEDS ORDERED: FERROUS SULFATE 325 MG TAB PO SCH (21:00)
[2021-02-03] MEDS ORDERED: METOPROLOL SUCCINATE (ER) 50 MG TAB.ER.24H PO SCH (21:00)
[2021-02-03] MEDS ORDERED: NON FORMULARY DRUG (Turmeric Root Extract [Turmeric] 500 MG Capsule) PO SCH (21:00)
[2021-02-03] MEDS ORDERED: TROSPIUM CHLORIDE 20 MG TABLET PO SCH (21:00)
[2021-02-03] MEDS ORDERED: TAMSULOSIN 0.4 MG CAP.ER.24H PO SCH (21:00)
[2021-02-03] MEDS ORDERED: INSULIN DETEMIR (LEVEMIR) 100 UNIT/ML SYR SQ SCH (21:00)
--- NOTE | 2021-02-03 22:30 | XR ---
EXAMINATION TYPE: XR chest 2V DATE OF EXAM: 02/03/2021 CLINICAL HISTORY: PreOp Cardiac Surgery. TECHNIQUE: Frontal and lateral view of the chest. COMPARISON: None FINDINGS: The cardiomediastinal silhouette is within normal limits for size. Pulmonary vasculature i s normal. There is no focal air space opacity. No pleural effusion. No pneumothorax seen. No acute d isplaced osseous fracture. IMPRESSION: No acute cardiopulmonary process.
[2021-02-03 22:48] LABS: Hemoglobin A1C 8.6 % (4.0-6.0)
[2021-02-04 00:49] LABS: Hepatitis A Antibody IgM Non-Reactive (Non-Reactive); Hepatitis B Core IgM Non-Reactive (Non-Reactive); Hepatitis B Surface Antigen Non-Reactive (Non-Reactive); Hepatitis C IgG Antibody Non-Reactive (Non-Reactive)
[2021-02-04] MEDS ORDERED: PANTOPRAZOLE 40 MG TABLET PO SCH (07:30)
--- NOTE | 2021-02-04 07:44 | ECHOF ---
Referral Reason:MR and Wall Motion MEASUREMENTS -------- HEIGHT: 182.9 cm WEIGHT: 85.3 kg BP: 116/81 IVSd: 1.4 cm (0.6 - 1.1) LVIDd: 4.0 cm (3.9 - 5.3) LVPWd: 1.4 cm (0.6 - 1.1) IVSs: 1.8 cm LVIDs: 3.2 cm LVPWs: 1.7 cm FINDINGS -------- Sinus rhythm. This was a technically difficult study with suboptimal apical views. Limited Study The left ventricular size is normal. There is moderate concentric left ventricular hypertrophy. O verall left ventricular systolic function is mild-moderately impaired with, an EF between 40 - 45 %. Apical anterior LV wall motion is hypokinetic. Apical septum LV wall motion is hypokinetic. There is trace mitral regurgitation. There is no pericardial effusion. CONCLUSIONS -------- 1. The left ventricular size is normal. 2. There is moderate concentric left ventricular hypertrophy. 3. Overall left ventricular systolic function is mild-moderately impaired with, an EF between 40 - 45 %. 4. Apical anterior LV wall motion is hypokinetic. 5. Apical septum LV wall motion is hypokinetic. 6. There is trace mitral regurgitation. [employer]: Katrin Sawant RDCS
[2021-02-04] MEDS ORDERED: FINASTERIDE 5 MG TAB PO SCH (09:00)
[2021-02-04] MEDS ORDERED: LORATADINE 10 MG TAB PO SCH (09:00)
[2021-02-04] MEDS ORDERED: MULTIVITAMINS, THERA 1 EACH TAB PO SCH (09:00)
[2021-02-04] MEDS ORDERED: ASCORBIC ACID 500 MG TAB PO SCH (09:00)
[2021-02-04] MEDS ORDERED: CHOLECALCIFEROL 25 MCG (1000 IU) TABLET PO SCH (09:00)
[2021-02-04] MEDS ORDERED: NON FORMULARY DRUG (Cranberry Fruit Extract [Cranberry] 200 MG Capsule) PO SCH (09:00)
[2021-02-04] MEDS ORDERED: Dulaglutide [Trulicity] 1.5 MG/0.5 ML Each SQ SCH (09:00)
[2021-02-04] MEDS ORDERED: DULoxetine HCL 30 MG CAPSULE.DR PO SCH (09:00)
--- NOTE | 2021-02-04 10:52 | P.GSCN ---
History of Present Illness Consult date: 02/03/21 Reason for Consult: Coronary artery disease with left main disease, evaluation for myocardial revascularization surgery. Requesting physician: Nadeen Gaitan History of present illness: This is a 70-year-old gentleman who follows with Dr. Miguel Bautista on an outpatient basis for his primary care service. He also follows with Dr. DEDE Gaitan for his cardiology care. He has a complex past medical history significant for hypertension, hyperlipidemia, insulin-dependent diabetes mellitus type 2, ulcerative colitis with colectomy and ileostomy pouch placement, obstructive sleep apnea with home CPAP use, a family history of early onset coronary artery disease with his father having a heart attack less than 55 years of age, 2 previous CVA, his first CVA was in 2014 in which he had speech disturbance and a second CVA in 2018 where he developed left-sided weakness. He denies any further residual deficits from the stroke. The patient also takes Eliquis 5 mg by mouth twice a day, although the patient is unclear why he is taking the Eliquis. Recently, the patient has had complaints of feeling fatigued and while doing yardwork around one week ago developed complaints of dizziness with feeling like he was going to pass out, shortness of breath and became diaphoretic. The patient reports that the episode of shortness of breath lasted for 2-3 minutes and resolved with rest. He denies any complaints of chest pain, chest pressure, recent fever, chills, nausea, vomiting, headache, diarrhea, orthopnea or syncope. Subsequently, due to the above-mentioned symptoms he was seen and examined by Dr. DEDE Gaitan and the patient underwent a transthoracic 2-D echocardiogram. The results of the 2-D echocardiogram are not available but according to Dr. Gaitan's notes it showed severe hypokinesia of the mid to distal anterior septal wall and adjoining apex with an ejection fraction of 40%, with moderate concentric left hypertrophy noted. For further evaluation the patient underwent a cardiac catheterization today 02/03/2021 which demonstrated a 60-70% stenosis to his left main coronary artery, and 80% stenosis to his mid left anterior descending coronary artery, a 40% stenosis to his proximal left anterior descending coronary artery, and an 80% stenosis to his PLV branch of his right coronary artery. Due to the findings on the heart catheterization and the patient's presenting symptoms a consult was placed to Dr. Ajay Dhillon from cardiothoracic surgery for further evaluation and treatment recommendations including myocardial revascularization surgery. Review of Systems A 14 point review of systems was completed was negative except as mentioned in the HPI. Past Medical History Past Medical History: Atrial Fibrillation, CVA/TIA, Diabetes Mellitus, Eye Disorder, GI Bleed, Hearing Disorder / Deafness, Hyperlipidemia, Hypertension, O steoarthritis (OA), Renal Disease, Sleep Apnea/CPAP/BIPAP Additional Past Medical History / Comment(s): 05/2015 CVA and 08/2017, continues to have occasional balance issues, Ulcerative Colitis, hx kidney stone. BPH. illeostomy placed March 19, 2018 uses cpap at home for sleep apnea, SOB w/exertion & fatigue History of Any Multi-Drug Resistant Organisms: None Reported Past Surgical History: Appendectomy, Bowel Resection, Heart Catheterization, Hernia Repair, Joint Replacement Additional Past Surgical History / Comment(s): APPENDEX RUPTURE, HAD J pouch. Left partial knee replacement. repair detached retina left eye, COLONOSCOPY, bilateral cataract extraction with lens implants, mesh with hernia repair, colectomy with ileostomy Past Anesthesia/Blood Transfusion Reactions: No Reported Reaction Additional Past Anesthesia/Blood Transfusion Reaction / Comm: PATIENT HAD SURGERY FOR LEFT EYE DETACHED RETINA AND DEVELOPED GAS BUBBLE IN L EYE. HE WAS INSTRUCTED TO NOT RECEIVE NITROUS OXIDE OR RIDE IN A PLANE UNTIL GAS BUBBLE IS GONE. Past Psychological History: No Psychological Hx Reported Smoking Status: Former smoker (Quit smoking over 40 years ago.) Past Alcohol Use History: Rare Past Drug Use History: None Reported - Past Family History Mother Family Medical History: Cancer, Diabetes Mellitus Additional Family Medical History / Comment(s): Mother at age 84 from [place] Father Additional Family Medical History / Comment(s): Father is with history of coronary artery disease. Patient has 4 children that are healthy with no major medical problems. Brother(s) Additional Family Medical History / Comment(s): Patient has 4 brothers. Two at the age of 44 from coronary artery disease with history of tobacco use and alcohol dependence. One from aneurysm in the chest. Medications and Allergies Home Medications Medication Instructions Recorded Confirmed Type Atorvastatin [Lipitor] 40 mg PO HS 02/06/17 02/03/21 History DULoxetine HCL [Cymbalta] 90 mg PO DAILY 02/06/17 02/03/21 History Finasteride [Proscar] 5 mg PO DAILY 02/06/17 02/03/21 History Multivit-Min/FA/Lycopen/Lutein 1 cap PO DAILY 02/06/17 02/03/21 History [Centrum Silver Men Tablet] Tamsulosin [Flomax] 0.4 mg PO HS 02/06/17 02/03/21 History Trospium Chloride [Sanctura] 20 mg PO BID 02/06/17 02/03/21 History Cholecalciferol [Vitamin D3 (25 1,000 unit PO DAILY 11/19/17 02/03/21 History Mcg = 1000 Iu)] Ferrous Sulfate [Iron (65 MG 25 mg PO HS 12/18/17 02/03/21 History Elemental)] Metoprolol Succinate (ER) [Toprol 50 mg PO HS 12/05/18 02/03/21 History XL] Omeprazole 40 mg PO DAILY 12/05/18 02/03/21 History Apixaban [Eliquis] 5 mg PO BID 08/29/20 02/03/21 History Ascorbic Acid [Vitamin C] 1,000 mg PO DAILY 08/29/20 02/03/21 History Cranberry Fruit Extract [Cranberry] 450 mg PO DAILY #0 08/29/20 02/03/21 History Guar Gum (Unknown Strength) 2 tab PO BID@0200,1400 08/29/20 02/03/21 History Loratadine [Claritin] 10 mg PO DAILY 08/29/20 02/03/21 History Turmeric Root Extract [Turmeric] 1,000 mg PO BID 08/29/20 02/03/21 History Dulaglutide [Trulicity] 1.5 mg SQ 02/01/21 02/03/21 History Insulin Glargine,Hum.rec.anlog 60 unit SQ 02/01/21 02/03/21 History [Basaglar Kwikpen U-100] Allergies Allergy/AdvReac Type Severity Reaction Status Date / Time codeine Allergy Rash/Hives Verified 02/03/21 10:48 morphine Allergy Rash/Hives Verified 02/03/21 10:48 Surgical - Exam Vital Signs Temp Pulse Resp BP Pulse Ox 98.5 F 90 18 116/81 96 02/03/21 10:45 02/03/21 10:45 02/03/21 10:45 02/03/21 10:45 02/03/21 10:45 - General well developed, well nourished, no distress, no pain - Eyes PERRL, normal ocular movement, no pale, no icteric - ENT normal pinna, normal nares, normal mucosa, no hearing loss, no congestion - Neck Neck is supple, No lymphadenopathy. no masses, no bruits, trachea midline, no venous distension - Respiratory Lung sounds essentially clear throughout. Respirations are symmetrical and nonlabored. No wheezes, rhonchi or crackles. - Cardiovascular Regular rhythm and rate. S1 and S2 present, negative for S3, gallop or murmur. No edema present. Peripheral pulses palpable. - Abdomen Abdomen is soft, nontender and nondistended. Active bowel sounds all 4 abdominal quadrants. No guarding or rigidity. Right lower quadrant abdomen ileostomy. - Genitourinary Deferred - Rectum Deferred - Integumentary no rash, no growths, no abnormal pigmentation - Neurologic Cranial nerves II through XII intact. No focal deficits. normal coordination, normal sensation - Musculoskeletal Moves all 4 extremities with equal strength bilateral. - Psychiatric oriented to time, oriented to person, oriented to place, speech is normal, memory intact Results - Labs 02/03/21 14:06 02/03/21 14:06 Abnormal Lab Results - Last 24 Hours (Table) 02/03/21 02/03/21 Range/Units 10:45 10:45 Potassium 5.2 H (3.5-5.1) mmol/L POC Glucose (mg/dL) 151 H (75-99) mg/dL Diabetes panel 02/03/21 Range/Units 10:45 Potassium 5.2 H (3.5-5.1) mmol/L Pituitary panel 02/03/21 Range/Units 10:45 Potassium 5.2 H (3.5-5.1) mmol/L Adrenal panel 02/03/21 Range/Units 10:45 Potassium 5.2 H (3.5-5.1) mmol/L - Imaging Additional studies: Cardiac catheterization results reviewed. Assessment and Plan Assessment: 1. Coronary artery disease with left main disease 2. Hypertension 3. Insulin-dependent diabetes mellitus type 2 4. Dyslipidemia 5. Family history of coronary artery disease less than 55 years of age 6. History of ulcerative colitis with colectomy and ileostomy pouch placement 7. Obstructive sleep apnea with home CPAP use 8. History of GI bleed 9. 2 previous CVAs in 2015 and in 2018 with no residual deficits Plan: The patient was seen and examined has bedside in the extended stay unit. His chart and diagnostics were reviewed. His case was discussed in detail with Dr. Ajay Dhillon from cardiothoracic surgery. Preoperative testing and preoperative teaching has been initiated. The patient has been scheduled follow-up as an outpatient with Dr. Dhillon in the office tomorrow 02/04/2021 at 5 PM. A bedside FEV1 was completed which showed a predicted value of 89% with a volume of 2.61 L. A 5 m walk test will be completed preoperatively. Continue to optimize medical management with aspirin, statin and beta oscar. Once the patient's preoperative testing has been completed an STS risk score will be calculated and discussed with the patient. More recommendations to follow based on patient's clinical course with his follow-up appointment with Dr. Ajay Dhillon. Thank you Dr. Gaitan for this consult and we look forward to working with you in the care of this patient. Time with Patient: Greater than 30
[2021-02-04 12:16] LABS: Chol/HDL Ratio 2.96; LDL Cholesterol,Calculated 7.8 mg/dL (0.0-131.0); VLDL Calculation 47.2 mg/dL (5.00-40.00)
== END 2021-02-03 17:56 | disposition home or self-care (01) ==
LOC: CATHCVL 10:27
PROVIDERS: ATTEND Internal Medicine Interventional Cardiology
DX: R07.9 Chest pain, unspecified (principal); R06.02 Shortness of breath; E11.9 Type 2 diabetes mellitus without complications; I10 Essential (primary) hypertension; E78.00 Pure hypercholesterolemia, unspecified; G47.33 Obstructive sleep apnea (adult) (pediatric); E78.5 Hyperlipidemia, unspecified; I48.91 Unspecified atrial fibrillation; I25.110 Atherosclerotic heart disease of native coronary artery with unstable angina pectoris; N40.1 Benign prostatic hyperplasia with lower urinary tract symptoms; R35.1 Nocturia; I34.0 Nonrheumatic mitral (valve) insufficiency; K51.90 Ulcerative colitis, unspecified, without complications; M19.90 Unspecified osteoarthritis, unspecified site; Z93.2 Ileostomy status; Z79.01 Long term (current) use of anticoagulants; Z79.82 Long term (current) use of aspirin; Z79.4 Long term (current) use of insulin; Z79.899 Other long term (current) drug therapy; Z86.73 Personal history of transient ischemic attack (TIA), and cerebral infarction without residual deficits; Z83.3 Family history of diabetes mellitus; Z87.442 Personal history of urinary calculi; Z87.891 Personal history of nicotine dependence; Z90.49 Acquired absence of other specified parts of digestive tract; Z82.49 Family history of ischemic heart disease and other diseases of the circulatory system
CPT/HCPCS: 93458; 94150; 80061; 80053; 80074; 84443; 83735; 84132; 85025; 85049; 85610; 85730; 81003; 87070; 83036; 71046; 93970; 93922; 93880; C8924; C1894; J2250; J2001; J1644; Q9950; Q9967; 93308

== ENCOUNTER 2021-02-09 05:39 | Inpatient (IN) | payer MEDICARE ==
[~2021-02-09 05:39] MED LIST changes: +ALBUMIN HUMAN 25% 50 ML IV ONE; +ALBUMIN HUMAN 5% 500 ML IVPB ONE; -ALPRAZolam 0.25 MG TAB PO PRN; -ALPRAZolam 0.5 MG TAB PO PRN; +ASPIRIN 325 MG TAB PO ONE; -ASPIRIN 325 MG TAB PO STA; +ATORVASTATIN 10 MG TAB PO ONE; -ATORVASTATIN 80 MG TAB PO STA; +CALCIUM CHLORIDE 100 MG/ML 10 ML SYRINGE IV ONE; +CARDIOPLEGIC SOLN (K+ 16 MEQ/L 1,000 ML with SODIUM BICARB (1 MEQ/ML) 20 ML, LIDOCAINE ... PERFUSION ONE; +CHLORHEXIDINE GLUCONATE 15 ML CUP MUCOUS MEM ONE; +CLEVIDIPINE BUTYRATE 25 MG in EMPTY BAG 1 BAG IV ONE; +HEPARIN SODIUM 1,000 UN/ML (10ML VL) IV ONE; +HEPARIN SODIUM,PORCINE 5,000 UNIT in SODIUM CHLORIDE 0.9% 500 ML 500 ML IV ONE; +INSULIN REGULAR 100 UNIT in SODIUM CHLORIDE 0.9% 100 ML IV ONE; +LACTATED RINGERS 1,000 ML IV ONE; +LACTATED RINGERS 1,000 ML IV SCH; +MAGNESIUM SULFATE MG 500 MG/ML IV ONE; +MANNITOL 25% 12.5 GM/50 ML VIAL IV ONE; +METOPROLOL TARTRATE 12.5 MG TAB PO ONE; +MIDAZOLAM 2 MG/2 ML VIAL IV PRN; +NITROGLYCERIN SL TABS 0.4 MG TAB SUBLINGUAL ONE; -NITROGLYCERIN SL TABS 0.4 MG TAB SUBLINGUAL PRN; +NITROGLYCERIN-D5W PMX 25 MG/250 ML BTL IV ONE; +NITROGLYCERIN-D5W PMX 50 MG in DEXTROSE/WATER 1 250ML.BAG IV ONE; +NOREPINEPHRINE 4 MG in SODIUM CHLORIDE 0.9% 250 ML IV ONE; +PAPAVERINE 360 MG in SODIUM CHLORIDE 0.9% 90 ML IV ONE; +PHENYLEPHRINE 10 MG/ML VIAL IV ONE; +PHENYLEPHRINE 40 MG in SODIUM CHLORIDE 0.9% 250 ML IV ONE; +PROTAMINE SULFATE 10 MG/ML 25 ML VIAL IV ONE; +PROTAMINE SULFATE 250 MG in EMPTY BAG 1 BAG IV ONE; +SODIUM BICARB 8.4% 50 ML SYR (1 MEQ/ML) IV ONE; +SODIUM CHLORIDE 0.9% 1,000 ML IV ONE; -SODIUM CHLORIDE 0.9% 1,000 ML in EMPTY BAG 1 BAG IV ONE; +TRANEXAMIC ACID 2,000 MG in SODIUM CHLORIDE 0.9% 80 ML IV ONE; +ceFAZolin 1,000 MG in SODIUM CHLORIDE 0.9% IRRIGATIO 1,000 ML IRRIGATION ONE; +propofoL 1,000 MG/100 ML VIAL IV ONE
[2021-02-09] MEDS ORDERED: LIDOCAINE 1% (10MG/ML) FOR IV START INTRADERMA ONE (06:20)
[2021-02-09 06:25] LABS: Glucose,Whole Blood 164 mg/dL (75-99)
[2021-02-09] MEDS ORDERED: SODIUM CHLORIDE 0.9% 100 ML BAG ONE (07:50)
[2021-02-09] MEDS ORDERED: ALBUMIN HUMAN 5% (25gm) 500 ML VIAL IVPB ONE (07:50)
[2021-02-09] MEDS ORDERED: SODIUM CHLORIDE 0.9% IRRIG 1,000 ML BTL IRRIGATION ONE (07:50)
[2021-02-09] MEDS ORDERED: PROPOFOL 10 MG/ML 20 ML VIAL IV ONE (07:50)
[2021-02-09] MEDS ORDERED: ceFAZolin 1,000 MG VIAL ONE (07:50)
[2021-02-09] MEDS ORDERED: VECURONIUM 10 MG VIAL IV ONE (07:50)
[2021-02-09] MEDS ORDERED: fentaNYL (PF) 50 MCG/ML 50 ML VIAL ONE (07:50)
[2021-02-09] MEDS ORDERED: NITROGLYCERIN-D5W PMX 50 MG/250 ML BOTTLE IV ONE (07:50)
[2021-02-09] MEDS ORDERED: MIDAZOLAM 2 MG/2 ML VIAL ONE (07:50)
[2021-02-09] MEDS ORDERED: HEPARIN SODIUM,PORCINE 10,000 UNIT/ML 1 ML VIAL ONE (07:50)
[2021-02-09] MEDS ORDERED: PHENYLEPHRINE-0.9% NACL SYG 1,000 MCG/10 ML SYRINGE ONE (07:50)
[2021-02-09] MEDS ORDERED: PROTAMINE SULFATE 10 MG/ML 5 ML VIAL IV ONE (07:50)
[2021-02-09] MEDS ORDERED: SODIUM BICARB 8.4% 50 ML SYR (1 MEQ/ML) ONE (07:50)
[2021-02-09] MEDS ORDERED: AMIODARONE 360 MG in DEXTROSE 5% IN WATER 200 ML IV PRN ×2 (13:12)
[2021-02-09] MEDS ORDERED: ONDANSETRON 4 MG/2 ML VIAL IVP PRN (13:12)
[2021-02-09] MEDS ORDERED: BENZOCAINE/MENTHOL LOZENG 1 EACH LOZENGE MUCOUS MEM PRN (13:12)
[2021-02-09] MEDS ORDERED: AMIODARONE 450 MG in DEXTROSE 5% IN WATER 250 ML IV PRN ×2 (13:12)
[2021-02-09] MEDS ORDERED: CALCIUM GLUCONATE 2 GM in SODIUM CHLORIDE 0.9% 100 ML IVPB PRN (13:12)
[2021-02-09] MEDS ORDERED: Phosphorus Replacement Protoco 1 EACH MISC MISCELLANE PRN (13:12)
[2021-02-09] MEDS ORDERED: Magnesium Replacement Protocol 1 EACH MISC MISCELLANE PRN (13:12)
[2021-02-09] MEDS ORDERED: Potassium Replacement Protocol 1 EACH MISC MISCELLANE PRN (13:12)
[2021-02-09] MEDS ORDERED: DEXTROSE 5% IN WATER 100 ML with AMIODARONE 150 MG IV PRN (13:12)
[2021-02-09] MEDS ORDERED: hydrALAZINE HCL 20 MG/ML 1 ML VIAL IVP PRN (13:12)
[2021-02-09] MEDS ORDERED: METOCLOPRAMIDE 5 MG/ML 2 ML VIAL IVP PRN (13:12)
[2021-02-09] MEDS ORDERED: IPRATROPIUM-ALBUTEROL 3 ML NEB INHALATION PRN (13:12)
[2021-02-09] MEDS ORDERED: INSULIN REGULAR 100 UNIT in SODIUM CHLORIDE 0.9% 100 ML IV SCH (13:30)
[2021-02-09] MEDS ORDERED: NITROGLYCERIN-D5W PMX 50 MG in DEXTROSE/WATER 1 250ML.BAG IV SCH (13:30)
[2021-02-09] MEDS ORDERED: DEXMEDETOMIDINE/0.9% NACL(PMX) 400 MCG in EMPTY BAG 1 BAG IV SCH (13:30)
[2021-02-09 13:43] LABS: Glucose,Whole Blood 139 mg/dL (75-99)
[2021-02-09 13:59] LABS: Basophils % (A) 0 %; Eosinophils # (A) 0.1 k/uL (0-0.7); Eosinophils % (A) 1 %; HCT 29.1 % (39.0-53.0); HGB 10.5 gm/dL (13.0-17.5); Lymphocytes # (A) 1.1 k/uL (1.0-4.8); Lymphocytes % (A) 11 %; MCH 32.8 pg (25.0-35.0); MCV 91.2 fL (80.0-100.0); Mean Platelet Volume 10.9; Monocytes # (A) 0.6 k/uL (0-1.0); Monocytes % (A) 6 %; Neutrophils # (A) 8.5 k/uL (1.3-7.7); Neutrophils % (A) 81 %; Platelet Count 102 k/uL (150-450); RBC 3.19 m/uL (4.30-5.90); RDW 13.9 % (11.5-15.5); WBC 10.5 k/uL (3.8-10.6)
[2021-02-09 13:59] LABS: Glucose,Whole Blood 157 mg/dL (75-99)
--- NOTE | 2021-02-09 14:01 | P.OP ---
Date of Procedure: 02/09/21 Preoperative Diagnosis: coronary artery disease Postoperative Diagnosis: same Procedure(s) Performed: off-pump CABG 4 with ABBOTT to LAD, vein graft ABBOTT to high diagonal, sequential vein graft to PDA and SANDRA. Epi-aortic ultrasound. Ligation of the left atrial appendage with a 35 mm AtriCure clip. Endovascular vein harvest. Implants: 35mm AtriCure clamp Anesthesia: GETA Surgeon: Ajay Dhillon Book Editor #1: Maurilio Jolley Estimated Blood Loss (ml): 300 IV fluids (ml): 2,000 Urine output (ml): 500 Pathology: none sent Condition: stable Disposition: ICU Indications for Procedure: 70-year-old male presents with fatigue and anginal symptomatology. He is noted to have left main and right coronary artery disease. The right coronary artery is dominant and the circumflex is very small. Coronary bypass grafting was recommended by Dr. Gaitan. Dr. Gaitan also requested we clipped his left atrial appendage due to history of stroke in the past. Operative Findings: left ventricular function was normal. There was no evidence of intracardiac thrombus by JULIAN. Coronaries were diffusely diseased particularly the diagonal and posterior descending coronary arteries. Circumflex coronary artery did not lead to a significant obtuse marginal branch. Conduit was excellent. Epi- aortic ultrasound revealed no significant atheroma in the ascending aorta. Description of Procedure: patient was brought to the operating room, placed supine on the operating table, anesthetized and intubated. [place] catheter and arterial line had been placed in the preop holding area. General anesthesia was induced and Melvin catheter was placed in JULIAN probe was placed. The anterior torso and lower extremities were sterilely prepped and draped in standard fashion. Greater saphenous vein was harvested from mid calf to groin on the left. It was an excellent conduit. Simultaneous sternotomy was performed a left hemisternum was retracted upwards and the left internal mammary artery was harvested on a vascularized pedicle left intact on its origin from the subclavian and divided distally. It was a good conduit. Left pleural space was drained with a 32- [place] chest tube. Standard sternal retractor was placed and the pericardium was opened in the midline. Heart was exposed with pericardial sutures. Patient was systemically heparinizedand ACTs were maintained greater than 250 during grafting. Left atrial appendage was exposed. A 35 mm AtriCure clip was placed on the base of the left atrial appendage. ABBOTT was tunneled into the pericardium from the pleural space. We began by examining the LAD and diagonal. The diagonal was a diseased vessel which was very high on the anterior wall.given the angulation of diagonal and the LAD did not appear to sequential graft would lie well. Rather we decided to cut the BEV to appropriately to reach the mid LAD and then junk the remaining portion of the ABBOTT off the main body of the ABBOTT as a T graft for the diagonal. Bulldog clamps were placed proximally and distally on the ABBOTT after preparing the distal LAD and the distal most portion and divided ABBOTT was anastomosed side to end to the main body of the ABBOTT right as it entered the pericardium.this was performed with running 8-0 Prolene suture. On completion of the anastomosis excellent pulsatile flow was noted out both branches of the resultant T graft. We now proceeded to the ABBOTT to LAD anastomosis. The LAD was stabilized at the junction of the proximal and middle third. Here it was a 2 mm soft vessel. It was opened and blood flow control with a 2 mm flow through. End to side anastomosis between the main body of the ABBOTT and the LAD was performed with running 8-0 Prolene suture. Completion of the anastomosis the flow through was removed effectively probing the proximal distal portion of the anastomosis. Suture was tied with good result and hemostasis and the inflow was open. I made pedicle was tacked surrounding epicardium with 6-0 silk sutures. Next the diagonal coronary artery was stabilized and opened. It was a 1.5 mm vessel with diffuse disease present. Flow was controlled 1.5 mm flow through. End to side anastomosis between the T graft portion of the ABBOTT to the diagonal was performed with running 8-0 Prolene suture. Completion anastomosis flow through was removed 50 probe the proximal distal portion of the anastomosis. Suture was tied with good resultant hemostasis. Inflow was open and the graft was noted to lay well and there were no leaks present. Next the inferior wall of the heart was exposed. The posterior lateral branch was very large vessel that ran right along the obtuse margin of the heart. There was stabilized and opened proximally. It accepted a 2 mm probe and blood flow was controlled with a 2 mm flow through. Saphenous vein was anastomosed in end-to-side fashion with running 7-0 Prolene suture. The anastomosisflow through was removed 50 probe t he proximal distal portion anastomosis. Suture was tied with good result and hemostasis. Good backbleeding was noted into the vein graft. This was controlled with a bulldog clamp. Next the posterior descending coronary artery was stabilized and explored. This was a diseased vessel with a good size lumen. It was opened and blood flow control with a 1.5 mm flow through. [id number] anastomosis between the saphenous vein to the posterior descending coronary artery was performed with 7-0 Prolene suture. On completion anastomosis the flow through was removed 50 probe the proximal distal portion anastomosis. Good backbleeding was noted into the vein graft. Bulldog clamp was removed from distally proximally the heart was lowered into anatomic position. The vein was cut to appropriately to reach the mid ascending aorta. Epi-aortic ultrasonography was performed with findings as noted above. Partial-occlusion clamp was placed on the ascending aorta after careful control of blood pressure by anesthesia. 4 mm punch hole was created in the ascending aorta and the proximal anastomosis constructed with running 6-0 Prolene suture. Completion anastomosis it was de-aired by backbleeding suture was tied and the partial occlusion clamp was removed. Good hemostasis was now noted in all surgical sites throughout. Heparin was reversed with protamine. Mediastinum was drained with 36-[place] chest tube. Mediastinum was irrigated with antibiotic solution. After assuring good hemostasis and good lie of all the grafts sternum was closed with 8 sternal wires. Fascia was closed with 0 Ethibond. Subcutaneous and subcuticular layers of malignant chest were closed with layers of Vicryl suture. Dry sterile dressings were applied the patient was transferred to the ICU in stable condition.
[2021-02-09 14:03] LABS: ABG Base Excess -3.1 mmol/L; ABG HCO3 23 mmol/L (21-25); ABG Oxygen Saturation 99.9 % (94-97); ABG PCO2 48 mmHg (35-45); ABG PO2 397 mmHg (83-108); ABG TCO2 25 mmol/L (19-24)
[2021-02-09 14:03] LABS: INR 1.2 (<1.2); Ionized Calcium 5.1 mg/dL (4.5-5.3); Partial Thromboplastin Time 24.8 sec (22.0-30.0); Prothrombin Time 12.5 sec (9.0-12.0)
[2021-02-09 14:05] LABS: Allen Test Performed? no
[2021-02-09 14:09] LABS: ABG PCO2 40 mmHg (35-45); ABG PH 7.28 (7.35-7.45); ABG PO2 364 mmHg (83-108); Allen Test Performed? Yes
[2021-02-09 14:10] LABS: ABG HCO3 19 mmol/L (21-25); ABG TCO2 20 mmol/L (19-24)
[2021-02-09 14:11] LABS: ABG Base Excess -7.5 mmol/L
[2021-02-09 14:12] LABS: ABG HCO3 21 mmol/L (21-25); ABG PCO2 42 mmHg (35-45); ABG PO2 119 mmHg (83-108); Allen Test Performed? Yes
[2021-02-09 14:13] LABS: ALT 30 U/L (4-49); AST 56 U/L (17-59); African American GFR (CKD) >90 (>60 ml/min/1.73 sqM); Albumin 3.4 g/dL (3.5-5.0); Alkaline Phosphatase 36 U/L (38-126); Anion Gap 8 mmol/L; Blood Urea Nitrogen 27 mg/dL (9-20); Calcium 8.4 mg/dL (8.4-10.2); Carbon Dioxide 21 mmol/L (22-30); Chloride 109 mmol/L (98-107); Glucose 128 mg/dL (74-99); Magnesium 1.8 mg/dL (1.6-2.3); Non-African American GFR(CKD) 80 (>60 ml/min/1.73 sqM); Potassium 4.2 mmol/L (3.5-5.1); Sodium 138 mmol/L (137-145); Total Bilirubin 0.9 mg/dL (0.2-1.3); Total Protein 5.3 g/dL (6.3-8.2)
[2021-02-09 14:13] LABS: ABG Base Excess -5.3 mmol/L; ABG Oxygen Saturation 98.8 % (94-97); ABG TCO2 22 mmol/L (19-24)
[2021-02-09 14:14] LABS: ABG HCO3 23 mmol/L (21-25); ABG PCO2 39 mmHg (35-45); ABG PH 7.38 (7.35-7.45); ABG PO2 84 mmHg (83-108); Allen Test Performed? Yes
[2021-02-09 14:15] LABS: Allen Test Performed? Yes
[2021-02-09 14:15] LABS: ABG Base Excess -1.7 mmol/L; ABG TCO2 24 mmol/L (19-24)
[2021-02-09 14:16] LABS: ABG Base Excess -3.3 mmol/L; ABG HCO3 21 mmol/L (21-25); ABG Oxygen Saturation 98.3 % (94-97); ABG PCO2 35 mmHg (35-45); ABG PH 7.39 (7.35-7.45); ABG PO2 95 mmHg (83-108); ABG TCO2 22 mmol/L (19-24)
[2021-02-09 14:17] LABS: ABG HCO3 21 mmol/L (21-25); ABG PCO2 36 mmHg (35-45); ABG PH 7.38 (7.35-7.45); ABG PO2 110 mmHg (83-108); ABG TCO2 22 mmol/L (19-24); Allen Test Performed? Yes
[2021-02-09 14:18] LABS: ABG Base Excess -3.7 mmol/L; ABG Oxygen Saturation 98.8 % (94-97)
[2021-02-09 14:20] LABS: Allen Test Performed? Yes
[2021-02-09 14:21] LABS: ABG Base Excess -3.5 mmol/L; ABG HCO3 21 mmol/L (21-25); ABG PCO2 37 mmHg (35-45); ABG PH 7.37 (7.35-7.45); ABG PO2 112 mmHg (83-108); ABG TCO2 23 mmol/L (19-24)
[2021-02-09] MEDS: LACTATED RINGERS 1,000 ML IV SCH (14:21)
[2021-02-09 14:22] LABS: ABG HCO3 20 mmol/L (21-25); ABG PCO2 38 mmHg (35-45); ABG PH 7.33 (7.35-7.45); ABG PO2 89 mmHg (83-108); Allen Test Performed? Yes
[2021-02-09 14:23] LABS: ABG Base Excess -5.4 mmol/L; ABG Ionized Calcium 4.8 mg/dL (4.5-5.3); ABG Oxygen Saturation 97.3 % (94-97); ABG TCO2 21 mmol/L (19-24)
[2021-02-09 14:23] LABS: ABG Ionized Calcium 4.7 mg/dL (4.5-5.3)
[2021-02-09 14:24] LABS: ABG Ionized Calcium 4.5 mg/dL (4.5-5.3)
[2021-02-09 14:24] LABS: ABG Ionized Calcium 4.7 mg/dL (4.5-5.3)
[2021-02-09 14:24] LABS: ABG Ionized Calcium 4.4 mg/dL (4.5-5.3)
[2021-02-09 14:25] LABS: ABG Ionized Calcium 4.5 mg/dL (4.5-5.3)
[2021-02-09 14:26] LABS: ABG Base Excess -7.5 mmol/L; ABG HCO3 19 mmol/L (21-25); ABG PCO2 40 mmHg (35-45); ABG PH 7.28 (7.35-7.45); ABG PO2 364 mmHg (83-108); ABG TCO2 20 mmol/L (19-24); Allen Test Performed? Yes
--- NOTE | 2021-02-09 14:38 | XR ---
EXAMINATION TYPE: XR chest 1V portable DATE OF EXAM: 02/09/2021 COMPARISON: Chest x-ray 02/03/2021 HISTORY: Postop cardiac surgery TECHNIQUE: Single frontal view of the chest is obtained. FINDINGS: Patient is post median sternotomy and left atrial appendage clip placement. Endotracheal t ube, NG tube, left chest tube, right jugular central venous sheath and coaxial [place]-Ken[place] catheter, me diastinal drain are overlying appropriate positions, the side port of the NG tube is cephalad to the gastroesophageal junction. Subsegmental basilar atelectatic changes are present. There is no sizable pneumothorax or pleural effusion. Cardiomediastinal silhouette within normal limits for postop change . Aorta is dense. Exam is expiratory. IMPRESSION: NG tube shows the side port cephalad to the gastroesophageal junction. Subsegmental basi lar atelectatic changes, postop change as described.
[2021-02-09 14:43] LABS: Glucose,Whole Blood 175 mg/dL (75-99)
[2021-02-09] MEDS: CLEVIDIPINE BUTYRATE 25 MG in EMPTY BAG 1 BAG IV SCH (14:54)
[2021-02-09] MEDS ORDERED: IPRATROPIUM-ALBUTEROL 3 ML NEB INHALATION SCH (16:00)
[2021-02-09 16:03] LABS: Glucose,Whole Blood 165 mg/dL (75-99)
[2021-02-09 16:42] LABS: Basophils % (A) 0 %; Eosinophils % (A) 0 %; HCT 31.4 % (39.0-53.0); HGB 11.1 gm/dL (13.0-17.5); Lymphocytes # (A) 0.8 k/uL (1.0-4.8); Lymphocytes % (A) 7 %; MCH 32.4 pg (25.0-35.0); MCHC 35.3 g/dL (31.0-37.0); MCV 91.8 fL (80.0-100.0); Mean Platelet Volume 10.9; Monocytes # (A) 0.7 k/uL (0-1.0); Monocytes % (A) 6 %; Neutrophils # (A) 10.6 k/uL (1.3-7.7); Neutrophils % (A) 85 %; Platelet Count 133 k/uL (150-450); RBC 3.43 m/uL (4.30-5.90); RDW 14.1 % (11.5-15.5); WBC 12.4 k/uL (3.8-10.6)
[2021-02-09 17:04] LABS: Glucose,Whole Blood 150 mg/dL (75-99)
[2021-02-09] MEDS: HEPARIN SODIUM,PORCINE/PF 5,000 UNIT/0.5 ML SYRINGE SQ SCH (17:11)
[2021-02-09] MEDS: ACETAMINOPHEN IV (For NPO) 1,000 MG in EMPTY BAG 1 BAG IVPB SCH (17:33)
[2021-02-09 17:35] LABS: ABG Base Excess -3.1 mmol/L; ABG HCO3 23 mmol/L (21-25); ABG Oxygen Saturation 99.6 % (94-97); ABG PCO2 44 mmHg (35-45); ABG PH 7.33 (7.35-7.45); ABG PO2 170 mmHg (83-108); ABG TCO2 24 mmol/L (19-24); Allen Test Performed? Yes
[2021-02-09 18:05] LABS: Glucose,Whole Blood 138 mg/dL (75-99)
[2021-02-09 18:58] LABS: Glucose,Whole Blood 139 mg/dL (75-99)
[2021-02-09 20:03] LABS: Basophils % (A) 0 %; Eosinophils % (A) 0 %; HCT 33.1 % (39.0-53.0); HGB 11.1 gm/dL (13.0-17.5); Lymphocytes # (A) 0.5 k/uL (1.0-4.8); Lymphocytes % (A) 4 %; MCH 31.7 pg (25.0-35.0); MCHC 33.6 g/dL (31.0-37.0); MCV 94.3 fL (80.0-100.0); Mean Platelet Volume 11.5; Monocytes # (A) 0.8 k/uL (0-1.0); Monocytes % (A) 7 %; Neutrophils # (A) 10.5 k/uL (1.3-7.7); Neutrophils % (A) 88 %; Platelet Count 103 k/uL (150-450); Poikilocytosis Slight; RBC 3.51 m/uL (4.30-5.90); RDW 14.6 % (11.5-15.5); WBC 11.9 k/uL (3.8-10.6)
[2021-02-09 20:05] LABS: Glucose,Whole Blood 135 mg/dL (75-99)
[2021-02-09] MEDS ORDERED: METOPROLOL TARTRATE 25 MG TAB PO STA (21:00)
[2021-02-09] MEDS: IPRATROPIUM-ALBUTEROL 3 ML NEB INHALATION SCH (21:10)
[2021-02-09 21:12] LABS: Glucose,Whole Blood 134 mg/dL (75-99)
[2021-02-09] MEDS ORDERED: MUPIROCIN 2% OINT 22 GM TUBE NASAL ONE (21:15)
[2021-02-09] MEDS: FERROUS SULFATE 325 MG TAB PO SCH (21:46)
[2021-02-09] MEDS: PANTOPRAZOLE 40 MG/10 ML VIAL IVP SCH (21:46)
[2021-02-09] MEDS: ATORVASTATIN 40 MG TAB PO SCH (21:46)
[2021-02-09 22:24] LABS: Glucose,Whole Blood 132 mg/dL (75-99)
[2021-02-09 23:06] LABS: Glucose,Whole Blood 142 mg/dL (75-99)
[2021-02-10] MEDS: HEPARIN SODIUM,PORCINE/PF 5,000 UNIT/0.5 ML SYRINGE SQ SCH ×3 (00:26→16:07)
[2021-02-10] MEDS: ACETAMINOPHEN IV (For NPO) 1,000 MG in EMPTY BAG 1 BAG IVPB SCH (00:26)
[2021-02-10 00:27] LABS: Glucose,Whole Blood 126 mg/dL (75-99)
[2021-02-10 01:04] LABS: Glucose,Whole Blood 120 mg/dL (75-99)
[2021-02-10] MEDS ORDERED: HYDROcodone/APAP 5-325MG 1 EACH TAB PO PRN (01:07)
[2021-02-10] MEDS: HYDROcodone/APAP 5-325MG 1 EACH TAB PO PRN ×4 (01:56→22:03)
[2021-02-10 02:07] LABS: Glucose,Whole Blood 123 mg/dL (75-99)
[2021-02-10 03:19] LABS: Glucose,Whole Blood 121 mg/dL (75-99)
[2021-02-10 04:10] LABS: Glucose,Whole Blood 121 mg/dL (75-99)
[2021-02-10 04:32] LABS: Basophils % (A) 0 %; Eosinophils % (A) 0 %; HCT 30.3 % (39.0-53.0); HGB 10.7 gm/dL (13.0-17.5); Lymphocytes # (A) 0.7 k/uL (1.0-4.8); Lymphocytes % (A) 7 %; MCH 33.5 pg (25.0-35.0); MCHC 35.5 g/dL (31.0-37.0); MCV 94.4 fL (80.0-100.0); Mean Platelet Volume 10.4; Monocytes # (A) 0.8 k/uL (0-1.0); Monocytes % (A) 8 %; Neutrophils # (A) 8.6 k/uL (1.3-7.7); Neutrophils % (A) 83 %; Platelet Count 124 k/uL (150-450); Poikilocytosis Slight; RBC 3.21 m/uL (4.30-5.90); RDW 14.5 % (11.5-15.5); WBC 10.3 k/uL (3.8-10.6)
[2021-02-10 04:41] LABS: Ionized Calcium 4.9 mg/dL (4.5-5.3)
[2021-02-10 05:12] LABS: Glucose,Whole Blood 127 mg/dL (75-99)
[2021-02-10 05:23] LABS: ALT 28 U/L (4-49); AST 52 U/L (17-59); African American GFR (CKD) >90 (>60 ml/min/1.73 sqM); Albumin 3.3 g/dL (3.5-5.0); Alkaline Phosphatase 34 U/L (38-126); Anion Gap 9 mmol/L; Blood Urea Nitrogen 19 mg/dL (9-20); Calcium 8.4 mg/dL (8.4-10.2); Carbon Dioxide 22 mmol/L (22-30); Chloride 105 mmol/L (98-107); Glucose 116 mg/dL (74-99); Magnesium 1.7 mg/dL (1.6-2.3); Non-African American GFR(CKD) 84 (>60 ml/min/1.73 sqM); Potassium 4.2 mmol/L (3.5-5.1); Sodium 136 mmol/L (137-145); Total Bilirubin 0.7 mg/dL (0.2-1.3); Total Protein 5.3 g/dL (6.3-8.2)
[2021-02-10] MEDS: MAGNESIUM SULFATE-D5W PMX 1 GM in DEXTROSE/WATER 1 100ML.BAG IVPB SCH ×2 (06:19→09:38)
[2021-02-10] MEDS: ALBUMIN HUMAN 5% 250 ML in EMPTY BAG 1 BAG IVPB PRN ×5 (06:34→17:05)
[2021-02-10 07:15] LABS: Glucose,Whole Blood 145 mg/dL (75-99)
--- NOTE | 2021-02-10 08:26 | P.PN ---
Subjective Progress Note Date: 02/10/21 Principal diagnosis: Coronary artery disease with left main disease. Previous medical history of hypertension, hyperlipidemia, insulin-dependent diabetes, CVA in 2015 and 2018 without residual deficits, previous tobacco dependence, obstructive sleep apnea with home CPAP use, GI bleed, ulcerative colitis with colectomy and ileostomy pouch placement, remote history of pneumonia, preoperative thrombocytopenia, and family history of premature coronary artery disease. Vaccinated against coated with Moderna vaccine POD #1 off-pump coronary artery bypass graft 4 with left internal mammary artery to the left anterior descending artery, reverse saphenous vein graft from the left internal mammary artery to the high diagonal, sequential vein graft to the PDA and SANDRA. Epi-aortic ultrasound. Ligation of the left atrial appendage with a 35 mm AtriCure clip. Endovascular vein harvest of the right greater saphenous vein from the mid calf to the groin Postoperative acute blood loss anemia and thrombocytopenia, expected given the hemodilution and preoperative thrombocytopenia The patient's currently sitting up in a recliner in the intensive care unit in no acute distress. He was successfully extubated last night at 18:20. States pain is controlled on current medication regimen, denies shortness of breath. Currently in normal sinus rhythm and hemodynamically stable on no inotropes or pressors. Attempting incentive spirometry use but only achieving 500 mL. Oxyge nating in the mid 90s on 4 L nasal cannula. Right internal jugular [place]ord[place], right radial arterial line, mediastinal and left pleural chest tubes all remain. Urine output adequate. No other new concerns. Objective - Vital Signs Vital signs: Vital Signs Temp 96.9 F L 02/09/21 06:10 Pulse 90 02/10/21 07:00 Resp 19 02/10/21 07:00 BP 114/71 02/10/21 07:00 Pulse Ox 96 02/10/21 07:00 Intake & Output 02/09/21 02/10/21 02/10/21 18:59 06:59 18:59 Intake Total 326.012 7959.906 59 Output Total 2215 948 95 Balance -1671.630 254.906 -36 Weight 88.1 kg Intake: IV 518 888 59 .9 NS pressure bag 45 108 9 CO/CI 170 180 Lactated Ringers 1,000 ml 250 600 50 @ 20 mls/hr IV .Q24H [facility] Rx#:[id number] Intake, IV Titration 25.370 14.906 Amount Insulin Regular 100 unit 12.036 14.906 In Sodium Chloride 0.9% 100 ml @ Per Protocol IV .Q0M [facility] Rx#:[id number] propofoL 1,000 mg In 13.334 Empty Bag 1 bag @ Titrate IV .Q0M [facility] Rx#: [id number] Oral 300 Output: Chest Tube Drainage 210 305 70 Chest Tube Left Pleural/ 210 305 70 Mediastinal Drainage 60 Right Calf 60 Urine 1045 493 25 Stool 150 Estimated Blood Loss 900 Other: Voiding Method Indwelling Catheter Indwelling Catheter ABP, PAP, CO, CI - Last Documented Arterial Blood Pressure 108/49 Pulmonary Artery Pressure 26/7 Cardiac Output 4.6 Cardiac Index 2.2 - Exam CONSTITUTIONAL: Appears comfortable, cooperative, no acute distress RESPIRATORY: Lungs sounds diminished bilaterally. Respirations even, nonlabored. Currently on 4 L nasal cannula with oxygen saturation 96%. Only able to achieve 500 mL on incentive spirometry. Weak nonproductive cough. CARDIOVASCULAR: S1, S2 present. Regular rate and rhythm, sinus rhythm on telemetry. Sternum stable. Palpable peripheral pulses bilaterally. No edema present. No calf pain or tenderness noted. Heart hugger in place with patient demonstrating appropriate use. Antiembolism stockings, SCDs present. GASTROINTESTINAL: Abdomen soft, nontender, nondistended. Active bowel sounds present 4 quadrants. Tolerating clear liquid diet. Positive stool in right sided ileostomy. GENITOURINARY: Melvin present draining clear, yellow urine. Output overnight 35-70 mL per hour INTEGUMENTARY: Skin is warm and dry with evidence of good perfusion. Anterior chest incision well approximated and covered with dry intact dressing. Right lower extremity EVH site well approximated, BRE drain present with minimal drainage NEUROLOGIC: Cranial nerves II through XII intact MUSKULOSKELETAL: Able to move all extremities, strength equal bilaterally PSYCHIATRIC: Alert and oriented to person place and time, appropriate affect, intact judgment and insight INVASIVE LINES AND TUBES: Mediastinal/left pleural chest tubes present and connected to wall suction, no air leaks present, 155 mL serosanguineous drainage overnight, 600 mL since surgery. Right internal jugular [place]ord[place], right radial arterial line present. Last CO/CI 4.6/2.2, PA 23/8, CVP 4. - Allied health notes Allied health notes reviewed: nursing - Labs CBC & Chem 7: 02/10/21 04:00 02/10/21 04:00 Labs: Abnormal Lab Results - Last 24 Hours (Table) 02/08/21 02/09/21 02/09/21 Range/Units 10:04 08:34 08:34 WBC (3.8-10.6) k/uL RBC (4.30-5.90) m/uL Hgb (13.0-17.5) gm/dL Hct (39.0-53.0) % Plt Count (150-450) k/uL Neutrophils # (1.3-7.7) k/uL Lymphocytes # (1.0-4.8) k/uL PT (9.0-12.0) sec INR (<1.2) ABG pH 7.28 L 7.28 L (7.35-7.45) ABG pCO2 (35-45) mmHg ABG pO2 364 H 364 H (83-108) mmHg ABG HCO3 19 L 19 L (21-25) mmol/L ABG Total CO2 (19-24) mmol/L ABG O2 Saturation 100.0 H 100.0 H (94-97) % ABG Ionized Calcium (4.5-5.3) mg/dL Sodium (137-145) mmol/L Chloride (98-107) mmol/L Carbon Dioxide (22-30) mmol/L BUN (9-20) mg/dL Glucose (74-99) mg/dL POC Glucose (mg/dL) (75-99) mg/dL Alkaline Phosphatase (38-126) U/L Total Protein (6.3-8.2) g/dL Albumin (3.5-5.0) g/dL Crossmatch See Detail 02/09/21 02/09/21 02/09/21 Range/Units 09:27 10:35 11:04 WBC (3.8-10.6) k/uL RBC (4.30-5.90) m/uL Hgb (13.0-17.5) gm/dL Hct (39.0-53.0) % Plt Count (150-450) k/uL Neutrophils # (1.3-7.7) k/uL Lymphocytes # (1.0-4.8) k/uL PT (9.0-12.0) sec INR (<1.2) ABG pH 7.30 L (7.35-7.45) ABG pCO2 (35-45) mmHg ABG pO2 119 H 110 H (83-108) mmHg ABG HCO3 (21-25) mmol/L ABG Total CO2 (19-24) mmol/L ABG O2 Saturation 98.8 H 98.3 H 98.8 H (94-97) % ABG Ionized Calcium 4.4 L (4.5-5.3) mg/dL Sodium (137-145) mmol/L Chloride (98-107) mmol/L Carbon Dioxide (22-30) mmol/L BUN (9-20) mg/dL Glucose (74-99) mg/dL POC Glucose (mg/dL) (75-99) mg/dL Alkaline Phosphatase (38-126) U/L Total Protein (6.3-8.2) g/dL Albumin (3.5-5.0) g/dL Crossmatch 02/09/21 02/09/21 02/09/21 Range/Units 11:36 12:33 13:41 WBC (3.8-10.6) k/uL RBC 3.19 L (4.30-5.90) m/uL Hgb 10.5 L D (13.0-17.5) gm/dL Hct 29.1 L (39.0-53.0) % Plt Count 102 L (150-450) k/uL Neutrophils # 8.5 H (1.3-7.7) k/uL Lymphocytes # (1.0-4.8) k/uL PT (9.0-12.0) sec INR (<1.2) ABG pH 7.33 L (7.35-7.45) ABG pCO2 (35-45) mmHg ABG pO2 112 H (83-108) mmHg ABG HCO3 20 L (21-25) mmol/L ABG Total CO2 (19-24) mmol/L ABG O2 Saturation 99.0 H 97.3 H (94-97) % ABG Ionized Calcium (4.5-5.3) mg/dL Sodium (137-145) mmol/L Chloride (98-107) mmol/L Carbon Dioxide (22-30) mmol/L BUN (9-20) mg/dL Glucose (74-99) mg/dL POC Glucose (mg/dL) (75-99) mg/dL Alkaline Phosphatase (38-126) U/L Total Protein (6.3-8.2) g/dL Albumin (3.5-5.0) g/dL Crossmatch 02/09/21 02/09/21 02/09/21 Range/Units 13:41 13:41 13:42 WBC (3.8-10.6) k/uL RBC (4.30-5.90) m/uL Hgb (13.0-17.5) gm/dL Hct (39.0-53.0) % Plt Count (150-450) k/uL Neutrophils # (1.3-7.7) k/uL Lymphocytes # (1.0-4.8) k/uL PT 12.5 H (9.0-12.0) sec INR 1.2 H (<1.2) ABG pH (7.35-7.45) ABG pCO2 (35-45) mmHg ABG pO2 (83-108) mmHg ABG HCO3 (21-25) mmol/L ABG Total CO2 (19-24) mmol/L ABG O2 Saturation (94-97) % ABG Ionized Calcium (4.5-5.3) mg/dL Sodium (137-145) mmol/L Chloride 109 H (98-107) mmol/L Carbon Dioxide 21 L (22-30) mmol/L BUN 27 H (9-20) mg/dL Glucose 128 H (74-99) mg/dL POC Glucose (mg/dL) 139 H (75-99) mg/dL Alkaline Phosphatase 36 L (38-126) U/L Total Protein 5.3 L (6.3-8.2) g/dL Albumin 3.4 L (3.5-5.0) g/dL Crossmatch 02/09/21 02/09/21 02/09/21 Range/Units 13:58 13:59 14:42 WBC (3.8-10.6) k/uL RBC (4.30-5.90) m/uL Hgb (13.0-17.5) gm/dL Hct (39.0-53.0) % Plt Count (150-450) k/uL Neutrophils # (1.3-7.7) k/uL Lymphocytes # (1.0-4.8) k/uL PT (9.0-12.0) sec INR (<1.2) ABG pH 7.30 L (7.35-7.45) ABG pCO2 48 H (35-45) mmHg ABG pO2 397 H (83-108) mmHg ABG HCO3 (21-25) mmol/L ABG Total CO2 25 H (19-24) mmol/L ABG O2 Saturation 99.9 H (94-97) % ABG Ionized Calcium (4.5-5.3) mg/dL Sodium (137-145) mmol/L Chloride (98-107) mmol/L Carbon Dioxide (22-30) mmol/L BUN (9-20) mg/dL Glucose (74-99) mg/dL POC Glucose (mg/dL) 157 H 175 H (75-99) mg/dL Alkaline Phosphatase (38-126) U/L Total Protein (6.3-8.2) g/dL Albumin (3.5-5.0) g/dL Crossmatch 02/09/21 02/09/21 02/09/21 Range/Units 16:01 16:30 17:02 WBC 12.4 H (3.8-10.6) k/uL RBC 3.43 L (4.30-5.90) m/uL Hgb 11.1 L (13.0-17.5) gm/dL Hct 31.4 L (39.0-53.0) % Plt Count 133 L (150-450) k/uL Neutrophils # 10.6 H (1.3-7.7) k/uL Lymphocytes # 0.8 L (1.0-4.8) k/uL PT (9.0-12.0) sec INR (<1.2) ABG pH (7.35-7.45) ABG pCO2 (35-45) mmHg ABG pO2 (83-108) mmHg ABG HCO3 (21-25) mmol/L ABG Total CO2 (19-24) mmol/L ABG O2 Saturation (94-97) % ABG Ionized Calcium (4.5-5.3) mg/dL Sodium (137-145) mmol/L Chloride (98-107) mmol/L Carbon Dioxide (22-30) mmol/L BUN (9-20) mg/dL Glucose (74-99) mg/dL POC Glucose (mg/dL) 165 H 150 H (75-99) mg/dL Alkaline Phosphatase (38-126) U/L Total Protein (6.3-8.2) g/dL Albumin (3.5-5.0) g/dL Crossmatch 02/09/21 02/09/21 02/09/21 Range/Units 17:32 18:04 18:56 WBC (3.8-10.6) k/uL RBC (4.30-5.90) m/uL Hgb (13.0-17.5) gm/dL Hct (39.0-53.0) % Plt Count (150-450) k/uL Neutrophils # (1.3-7.7) k/uL Lymphocytes # (1.0-4.8) k/uL PT (9.0-12.0) sec INR (<1.2) ABG pH 7.33 L (7.35-7.45) ABG pCO2 (35-45) mmHg ABG pO2 170 H (83-108) mmHg ABG HCO3 (21-25) mmol/L ABG Total CO2 (19-24) mmol/L ABG O2 Saturation 99.6 H (94-97) % ABG Ionized Calcium (4.5-5.3) mg/dL Sodium (137-145) mmol/L Chloride (98-107) mmol/L Carbon Dioxide (22-30) mmol/L BUN (9-20) mg/dL Glucose (74-99) mg/dL POC Glucose (mg/dL) 138 H 139 H (75-99) mg/dL Alkaline Phosphatase (38-126) U/L Total Protein (6.3-8.2) g/dL Albumin (3.5-5.0) g/dL Crossmatch 02/09/21 02/09/21 02/09/21 Range/Units 19:58 20:03 21:10 WBC 11.9 H (3.8-10.6) k/uL RBC 3.51 L (4.30-5.90) m/uL Hgb 11.1 L (13.0-17.5) gm/dL Hct 33.1 L (39.0-53.0) % Plt Count 103 L (150-450) k/uL Neutrophils # 10.5 H (1.3-7.7) k/uL Lymphocytes # 0.5 L (1.0-4.8) k/uL PT (9.0-12.0) sec INR (<1.2) ABG pH (7.35-7.45) ABG pCO2 (35-45) mmHg ABG pO2 (83-108) mmHg ABG HCO3 (21-25) mmol/L ABG Total CO2 (19-24) mmol/L ABG O2 Saturation (94-97) % ABG Ionized Calcium (4.5-5.3) mg/dL Sodium (137-145) mmol/L Chloride (98-107) mmol/L Carbon Dioxide (22-30) mmol/L BUN (9-20) mg/dL Glucose (74-99) mg/dL POC Glucose (mg/dL) 135 H 134 H (75-99) mg/dL Alkaline Phosphatase (38-126) U/L Total Protein (6.3-8.2) g/dL Albumin (3.5-5.0) g/dL Crossmatch 02/09/21 02/09/21 02/10/21 Range/Units 22:23 23:04 00:25 WBC (3.8-10.6) k/uL RBC (4.30-5.90) m/uL Hgb (13.0-17.5) gm/dL Hct (39.0-53.0) % Plt Count (150-450) k/uL Neutrophils # (1.3-7.7) k/uL Lymphocytes # (1.0-4.8) k/uL PT (9.0-12.0) sec INR (<1.2) ABG pH (7.35-7.45) ABG pCO2 (35-45) mmHg ABG pO2 (83-108) mmHg ABG HCO3 (21-25) mmol/L ABG Total CO2 (19-24) mmol/L ABG O2 Saturation (94-97) % ABG Ionized Calcium (4.5-5.3) mg/dL Sodium (137-145) mmol/L Chloride (98-107) mmol/L Carbon Dioxide (22-30) mmol/L BUN (9-20) mg/dL Glucose (74-99) mg/dL POC Glucose (mg/dL) 132 H 142 H 126 H (75-99) mg/dL Alkaline Phosphatase (38-126) U/L Total Protein (6.3-8.2) g/dL Albumin (3.5-5.0) g/dL Crossmatch 02/10/21 02/10/21 02/10/21 Range/Units 01:04 02:06 03:16 WBC (3.8-10.6) k/uL RBC (4.30-5.90) m/uL Hgb (13.0-17.5) gm/dL Hct (39.0-53.0) % Plt Count (150-450) k/uL Neutrophils # (1.3-7.7) k/uL Lymphocytes # (1.0-4.8) k/uL PT (9.0-12.0) sec INR (<1.2) ABG pH (7.35-7.45) ABG pCO2 (35-45) mmHg ABG pO2 (83-108) mmHg ABG HCO3 (21-25) mmol/L ABG Total CO2 (19-24) mmol/L ABG O2 Saturation (94-97) % ABG Ionized Calcium (4.5-5.3) mg/dL Sodium (137-145) mmol/L Chloride (98-107) mmol/L Carbon Dioxide (22-30) mmol/L BUN (9-20) mg/dL Glucose (74-99) mg/dL POC Glucose (mg/dL) 120 H 123 H 121 H (75-99) mg/dL Alkaline Phosphatase (38-126) U/L Total Protein (6.3-8.2) g/dL Albumin (3.5-5.0) g/dL Crossmatch 02/10/21 02/10/21 02/10/21 Range/Units 04:00 04:00 04:08 WBC (3.8-10.6) k/uL RBC 3.21 L (4.30-5.90) m/uL Hgb 10.7 L (13.0-17.5) gm/dL Hct 30.3 L (39.0-53.0) % Plt Count 124 L (150-450) k/uL Neutrophils # 8.6 H (1.3-7.7) k/uL Lymphocytes # 0.7 L (1.0-4.8) k/uL PT (9.0-12.0) sec INR (<1.2) ABG pH (7.35-7.45) ABG pCO2 (35-45) mmHg ABG pO2 (83-108) mmHg ABG HCO3 (21-25) mmol/L ABG Total CO2 (19-24) mmol/L ABG O2 Saturation (94-97) % ABG Ionized Calcium (4.5-5.3) mg/dL Sodium 136 L (137-145) mmol/L Chloride (98-107) mmol/L Carbon Dioxide (22-30) mmol/L BUN (9-20) mg/dL Glucose 116 H (74-99) mg/dL POC Glucose (mg/dL) 121 H (75-99) mg/dL Alkaline Phosphatase 34 L (38-126) U/L Total Protein 5.3 L (6.3-8.2) g/dL Albumin 3.3 L (3.5-5.0) g/dL Crossmatch 02/10/21 02/10/21 Range/Units 05:10 07:12 WBC (3.8-10.6) k/uL RBC (4.30-5.90) m/uL Hgb (13.0-17.5) gm/dL Hct (39.0-53.0) % Plt Count (150-450) k/uL Neutrophils # (1.3-7.7) k/uL Lymphocytes # (1.0-4.8) k/uL PT (9.0-12.0) sec INR (<1.2) ABG pH (7.35-7.45) ABG pCO2 (35-45) mmHg ABG pO2 (83-108) mmHg ABG HCO3 (21-25) mmol/L ABG Total CO2 (19-24) mmol/L ABG O2 Saturation (94-97) % ABG Ionized Calcium (4.5-5.3) mg/dL Sodium (137-145) mmol/L Chloride (98-107) mmol/L Carbon Dioxide (22-30) mmol/L BUN (9-20) mg/dL Glucose (74-99) mg/dL POC Glucose (mg/dL) 127 H 145 H (75-99) mg/dL Alkaline Phosphatase (38-126) U/L Total Protein (6.3-8.2) g/dL Albumin (3.5-5.0) g/dL Crossmatch - Imaging and Cardiology Chest x-ray: image reviewed Assessment and Plan Assessment: 1. Coronary artery disease with left main disease, status post off-pump three- vessel CABG 2. History of hypertension 3. Hyperlipidemia, treated, cholesterol 83, LDL 8 4. Insulin-dependent diabetes, uncontrolled with hyperglycemia, preop hemoglobin A1c 8.6% 5. CVA in 2015 and 2018 without residual deficits 6. Previous tobacco dependence, preoperative FEV1 89% of predicted 7. Ostructive sleep apnea with home CPAP use 8. GI bleed 9. Ulcerative colitis with colectomy and ileostomy pouch placement 10. Remote history of pneumonia 11. Preoperative thrombocytopenia 12. Family history of premature coronary artery disease. Vaccinated against coated with Moderna vaccine 13. Postoperative acute blood loss anemia and thrombocytopenia, expected Plan: 1. Continue aspirin, statin, Plavix, beta oscar therapy. Will increase beta oscar as tolerated. 2. Wean O2 as tolerated. Encourage incentive spirometry 10 times every hour while awake. Bronchodilators per pulmonology 3. Increase activity, ambulate as tolerated. PT/OT/cardiac rehab consulted 4. Will monitor daily labs and x-rays. Electrolyte replacement per protocol 5. GI/DVT prophylaxis 6. Pain control with current medication regimen 7. Insulin management per primary care service. Patient needs tight blood sugar control to promote sternal union and prevent infection 8. Discontinue [place]. Connect Cordis to continuous CVP monitoring 9. Discontinue right EVH BRE 10. Continue mediastinal, left pleural chest tubes for another 24 hours 11. Continue Melvin catheter for another 24 hours for strict accurate intake and output. Daily weights 12. Will add home meds as tolerated 13. More recommendations to follow Time with Patient: Greater than 30
[2021-02-10] MEDS: METOPROLOL TARTRATE 25 MG TAB PO SCH ×2 (08:27→22:03)
[2021-02-10] MEDS: CLOPIDOGREL 75 MG TAB PO SCH (08:27)
[2021-02-10] MEDS: ASCORBIC ACID 500 MG TAB PO SCH (08:29)
[2021-02-10] MEDS: CHOLECALCIFEROL 25 MCG (1000 IU) TABLET PO SCH (08:29)
[2021-02-10] MEDS: MULTIVITAMINS, THERA 1 EACH TAB PO SCH (08:29)
[2021-02-10 08:33] LABS: Glucose,Whole Blood 200 mg/dL (75-99)
[2021-02-10] MEDS: PANTOPRAZOLE 40 MG/10 ML VIAL IVP SCH ×2 (08:39→22:03)
[2021-02-10] MEDS: ASPIRIN 81 MG PO SCH (08:40)
[2021-02-10] MEDS: FINASTERIDE 5 MG TAB PO SCH (08:41)
[2021-02-10] MEDS: DULoxetine HCL 30 MG CAPSULE.DR PO SCH (08:42)
[2021-02-10] MEDS ORDERED: METOPROLOL TARTRATE 12.5 MG TAB PO SCH (09:00)
[2021-02-10] MEDS ORDERED: PANTOPRAZOLE 40 MG/10 ML VIAL IVP SCH (09:00)
[2021-02-10] MEDS ORDERED: ASPIRIN 325 MG TAB PO SCH (09:00)
[2021-02-10] MEDS ORDERED: MAGNESIUM HYDROXIDE 2,400 MG/10 ML CUP PO PRN (09:00)
[2021-02-10] MEDS ORDERED: bisacodyL 10 MG SUPP RECTAL PRN (09:00)
[2021-02-10] MEDS: IPRATROPIUM-ALBUTEROL 3 ML NEB INHALATION SCH ×4 (09:14→19:49)
--- NOTE | 2021-02-10 09:15 | XR ---
EXAMINATION TYPE: XR chest 1V portable DATE OF EXAM: 02/10/2021 COMPARISON: Chest x-ray 02/09/2021 HISTORY: Postop cardiac surgery, chest tube TECHNIQUE: Single frontal view of the chest is obtained. FINDINGS: Endotracheal tube and NG tube have been removed. Patient is post median sternotomy and lef t atrial appendage clip placement. Left chest tube, right jugular central venous catheter are again n oted, distal tip of the catheter is overlying the interlobar artery. Heart is enlarged. Prominence of the region of the thoracic aorta, patient is rotated. Patchy basilar density is noted. There are ove rlying artifacts. No sizable pneumothorax. Median sternal drain is in place. IMPRESSION: Interval extubation. Probable atelectasis, postop changes
[2021-02-10] MEDS: TROSPIUM CHLORIDE 20 MG TABLET PO SCH ×2 (09:23→22:02)
[2021-02-10 09:28] LABS: Glucose,Whole Blood 156 mg/dL (75-99)
[2021-02-10] MEDS: KETOROLAC 15 MG/ML 1 ML VIAL IVP SCH ×3 (09:28→18:00)
[2021-02-10] MEDS: LACTATED RINGERS 1,000 ML IV SCH (09:33)
--- NOTE | 2021-02-10 09:35 | P.CNPUL ---
History of Present Illness Consult date: 02/10/21 Requesting physician: Ajay Dhillon Reason for consult: other Chief complaint: Coronary artery disease, off-pump CABG 4 History of present illness: This is a 70-year-old white male of Dr. Bautista, with past medical history of hypertension, hyperlipidemia, diabetes mellitus2 on insulin, ulcerative colitis with history of colectomy and ileostomy placement, obstructive sleep apnea on home CPAP, family history of early onset coronary artery disease, history of 2 previous CVA in 2014 and 2018, with residual left-sided weakness. Patient was recently hospitalized when she came in for evaluation cough with fatigue, shortness of breath, and diaphoresis. Patient had a cardiac catheterization on 02/03/2021 which demonstrated a 60-70% stenosis of his left main coronary artery, 80% stenosis to his mid LAD, 40% stenosis to his proximal LAD, 80% stenosis to his PLV branch of the right coronary artery. Outpatient echocardiogram showed severe hypokinesia of the mid to distal anterior septal wall and adjoining apex with an ejection fraction of 40% and moderate concentric LVH. Patient was referred to cardiothoracic surgery for surgical intervention. FEV1 was completed showing a predicted value of 89% of predicted with a volume of 2.61 L. On 02/09/2021. Patient underwent off-pump CABG 4 with ABBOTT to the LAD, vein graft ABBOTT to high diagonal, sequential vein graft to PDA and SANDRA, appendectomy aortic ultrasound, and ligation of the left atrial appendage with a 35 mm AtriCure clip. Postoperative chest x-ray showed endotracheal tube, NG tube, left chest, right IJ Cordis, [place] catheter, and mediastinal chest tube in appropriate position. Subsegmental basilar atelectatic changes were present, there was no sizable pneumothorax or pleural effusion. Postoperative blood gas showed pO2 of 397, pCO2 40, and pH 7.30. Stop her blood work has been reviewed, Levoxyl, was 10.5, hemoglobin is 10.5, INR is 1.2, sodium is 138, potassium is 4.2, chloride is 109, CO2 is 21, BUN is 27, creatinine 0.95. Hemodynamically patient has been stable. He was successfully weaned and extubated within 5 hours of OR exit time. This morning he seen in intensive care unit. He is awake and alert, oriented 3, he sitting up in a recliner, he is on 2 L of oxygen pulse ox of 97%, he is on lactated Ringer's at 30 mL an hour, insulin infusion is at 4 units per hour, no other drips. Hemodynamically he is stable, in sinus mechanism with a rate of 89. His PEEP pressure is 20 over 4. CVP is 1, he received 15% albumin. Cardiac output is 4.6 and cardiac index is 2.2. He is breathing comfortably, he is working on her incentive spirometer, 1 mediastinal and left pleural chest tube connected together, with a total of 600 mL of thin serosanguineous output since surgery. No air leak. Today's chest x-ray shows interval extubation, and probable atelectasis. Today's blood work was reviewed, hemoglobin is 10.7, white blood cell count is 10.3, electrolytes and renal profile were unremarkable. Review of Systems All systems: negative Constitutional: Denies chills, Denies fever Eyes: denies blurred vision, denies pain Ears, nose, mouth and throat: Denies headache, Denies sore throat Cardiovascular: Denies chest pain, Denies shortness of breath Respiratory: Reports dyspnea, Denies cough Gastrointestinal: Denies abdominal pain, Denies diarrhea, Denies nausea, Denies vomiting Musculoskeletal: Denies myalgias Integumentary: Denies pruritus, Denies rash Neurological: Denies numbness, Denies weakness Psychiatric: Denies anxiety, Denies depression Endocrine: Denies fatigue, Denies weight change Past Medical History Past Medical History: Atrial Fibrillation, CVA/TIA, Diabetes Mellitus, Eye Disorder, Hearing Disorder / Deafness, Hyperlipidemia, Hypertension, Sleep Apnea/CPAP/BIPAP Additional Past Medical History / Comment(s): 05/2015 CVA and 08/2017, continues to have occasional balance issues. ., Ulcerative Colitis, hx kidney stone. BPH. illeostomy placed March 19, 2018 uses cpap at home for sleep apnea History of Any Multi-Drug Resistant Organisms: None Reported Past Surgical History: Appendectomy, Bowel Resection, Heart Catheterization, Hernia Repair, Joint Replacement Additional Past Surgical History / Comment(s): APPENDEX RUPTURE, HAD J pouch. Left partial knee replacement. 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 HE WAS INSTRUCTED TO NOT RECEIVE NITROUS OXIDE OR RIDE IN A PLANE UNTIL GAS BUBBLE IS GONE. Smoking Status: Former smoker - Past Family History Mother Family Medical History: Cancer, Diabetes Mellitus Additional Family Medical History / Comment(s): Mother at age 84 from [place] Father Additional Family Medical History / Comment(s): Father is with history of coronary artery disease. Patient has 4 children that are healthy with no major medical problems. Brother(s) Additional Family Medical History / Comment(s): Patient has 4 brothers. Two at the age of 44 from coronary artery disease with history of tobacco use and alcohol dependence. One from aneurysm in the chest. Medications and Allergies Home Medications Medication Instructions Recorded Confirmed Type Atorvastatin [Lipitor] 40 mg PO HS 02/06/17 02/09/21 History DULoxetine HCL [Cymbalta] 90 mg PO DAILY 02/06/17 02/09/21 History Finasteride [Proscar] 5 mg PO DAILY 02/06/17 02/09/21 History Multivit-Min/FA/Lycopen/Lutein 1 cap PO DAILY 02/06/17 02/09/21 History [Centrum Silver Men Tablet] Tamsulosin [Flomax] 0.4 mg PO HS 02/06/17 02/09/21 History Trospium Chloride [Sanctura] 20 mg PO BID 02/06/17 02/09/21 History Cholecalciferol [Vitamin D3 (25 1,000 unit PO DAILY 11/19/17 02/09/21 History Mcg = 1000 Iu)] Ferrous Sulfate [Iron (65 MG 25 mg PO HS 12/18/17 02/09/21 History Elemental)] Metoprolol Succinate (ER) [Toprol 50 mg PO QAM 12/05/18 02/09/21 History XL] Omeprazole 40 mg PO DAILY 12/05/18 02/09/21 History Ascorbic Acid [Vitamin C] 1,000 mg PO DAILY 08/29/20 02/09/21 History Cranberry Fruit Extract [Cranberry] 450 mg PO DAILY #0 08/29/20 02/09/21 History Guar Gum (Unknown Strength) 2 tab PO BID@0200,1400 08/29/20 02/09/21 History Loratadine [Claritin] 10 mg PO DAILY 08/29/20 02/09/21 History Turmeric Root Extract [Turmeric] 1,000 mg PO BID 08/29/20 02/09/21 History Dulaglutide [Trulicity] 1.5 mg SQ TH 02/01/21 02/09/21 History Insulin Glargine,Hum.rec.anlog 45 unit SQ HS 02/01/21 02/09/21 History [Basaglar Kwikpen U-100] Aspirin 81 mg PO DAILY 02/08/21 02/09/21 History INSULIN LISPRO (HumaLOG) [humaLOG] 4 units SQ AC-BID 02/08/21 02/09/21 History Allergies Allergy/AdvReac Type Severity Reaction Status Date / Time codeine Allergy Rash/Hives Verified 02/09/21 06:12 morphine Allergy Rash/Hives Verified 02/09/21 06:12 Physical Exam Vitals: Vital Signs Pulse Resp BP Pulse Ox 02/10/21 09:00 85 19 97 02/10/21 08:00 88 20 95 02/10/21 07:00 90 19 114/71 96 02/10/21 06:00 89 27 H 97 02/10/21 05:00 90 12 98 02/10/21 04:00 88 13 108/75 96 02/10/21 03:00 90 17 98 02/10/21 02:00 96 12 95 02/10/21 01:00 96 16 108/75 97 02/10/21 00:28 98 02/10/21 00:00 100 14 116/79 97 02/09/21 23:00 105 H 15 97 02/09/21 22:00 106 H 18 98 02/09/21 21:19 110 H 02/09/21 21:10 109 H 02/09/21 21:00 108 H 16 97 02/09/21 20:00 108 H 14 108/70 97 02/09/21 19:00 106 H 15 108/70 97 02/09/21 18:30 106 H 16 98 02/09/21 18:00 106 H 12 97 02/09/21 17:30 108 H 18 96 02/09/21 17:00 107 H 15 96 02/09/21 16:45 107 H 15 96 02/09/21 16:30 108 H 17 96 02/09/21 16:21 104 H 02/09/21 16:15 106 H 11 L 98 02/09/21 16:04 105 H 02/09/21 16:00 106 H 22 108/72 96 02/09/21 15:45 106 H 12 96 02/09/21 15:30 106 H 24 99/78 98 02/09/21 15:15 103 H 17 97 02/09/21 15:00 104 H 17 97 02/09/21 14:45 103 H 17 98 02/09/21 14:30 102 H 12 97 02/09/21 14:15 102 H 12 98 02/09/21 14:00 102 H 12 97 02/09/21 13:45 101 H 12 122/82 99 Intake and Output 02/09/21 02/10/21 02/10/21 22:59 06:59 14:59 Intake Total 1014.004 576.906 108.858 Output Total 913 655 200 Balance 101.004 -78.094 -91.142 Intake: IV 702 562 98 .9 NS pressure bag 72 72 18 CO/CI 230 90 Lactated Ringers 1,000 ml 400 400 80 @ 20 mls/hr IV .Q24H KRISTIN Rx#:[id number] Intake, IV Titration 12.004 14.906 10.858 Amount Insulin Regular 100 unit 11.001 14.906 10.858 In Sodium Chloride 0.9% 100 ml @ Per Protocol IV .Q0M KRISTIN Rx#:[id number] propofoL 1,000 mg In 1.003 Empty Bag 1 bag @ Titrate IV .Q0M KRISTIN Rx#: [id number] Oral 300 Output: Chest Tube Drainage 285 155 150 Chest Tube Left Pleural/ 285 155 150 Mediastinal Drainage 60 Right Calf 60 Urine 568 350 50 Stool 150 Other: Voiding Method Indwelling Catheter Indwelling Catheter Weight 88.1 kg ABP, PAP, CO, CI - Last 8 Hours Arterial Blood Pressure 107/50 Arterial Blood Pressure 111/50 Arterial Blood Pressure 108/49 Arterial Blood Pressure 103/56 Arterial Blood Pressure 111/57 Arterial Blood Pressure 116/58 Arterial Blood Pressure 125/63 Arterial Blood Pressure 121/63 Pulmonary Artery Pressure 20/3 Pulmonary Artery Pressure 23/5 Pulmonary Artery Pressure 26/7 Pulmonary Artery Pressure 26/9 Pulmonary Artery Pressure 35/17 Pulmonary Artery Pressure 25/9 Pulmonary Artery Pressure 25/9 Pulmonary Artery Pressure 34/17 Cardiac Output 6.5 Cardiac Output 4.6 Cardiac Output 5 Cardiac Index 3.2 Cardiac Index 2.2 Cardiac Index 2.4 GENERAL EXAM: Alert, very pleasant, 70-year-old white male, sitting up in the recliner, on 2 L oxygen pulse ox of 97% comfortable in no apparent distress. HEAD: Normocephalic/atraumatic. EYES: Normal reaction of pupils, equal size. Conjunctiva pink, sclera white. NOSE: Clear with pink turbinates. THROAT: No erythema or exudates. NECK: No masses, no JVD, no thyroid enlargement, no adenopathy. Right IJ Cordis and [place] catheter present CHEST: No chest wall deformity. Symmetrical expansion. Midsternal incision is clean dry and intact, 1 pleural and one mediastinal chest tubes connected together, with total of 600 mL of thin sero-sanguineous output in the Pleur- evac. Chest tubes connected to suction, there is no evidence of air leak. LUNGS: Equal air entry with no crackles, wheeze, rhonchi or dullness. CVS: Regular rate and rhythm, normal S1 and S2, no gallops, no murmurs, no rubs ABDOMEN: Soft, nontender. No hepatosplenomegaly, normal bowel sounds, no guarding or rigidity. EXTREMITIES: No clubbing, no edema, no cyanosis, 2+ pulses and upper and lower extremities. he has SCDs on bilateral lower extremities MUSCULOSKELETAL: Muscle strength and tone normal. SPINE: No scoliosis or deformity SKIN: No rashes, right lower leg incision is clean dry and intact CENTRAL NERVOUS SYSTEM: Alert and oriented -3. No focal deficits, tone is normal in all 4 extremities. PSYCHIATRIC: Alert and oriented -3. Appropriate affect. Intact judgment and insight. Results - Laboratory Findings CBC and BMP: 02/10/21 04:00 02/10/21 04:00 ABG ABG pH 7.33 (7.35-7.45) L 02/09/21 17:32 ABG pCO2 44 mmHg (35-45) 02/09/21 17:32 ABG pO2 170 mmHg (83-108) H 02/09/21 17:32 ABG O2 Saturation 99.6 % (94-97) H 02/09/21 17:32 PT/INR, D-dimer PT 12.5 sec (9.0-12.0) H 02/09/21 13:41 INR 1.2 (<1.2) H 02/09/21 13:41 Abnormal lab findings: Abnormal Labs 02/08/21 02/09/21 02/09/21 10:04 06:22 08:34 WBC RBC Hgb Hct Plt Count Neutrophils # Lymphocytes # PT INR ABG pH 7.28 L ABG pCO2 ABG pO2 364 H ABG HCO3 19 L ABG Total CO2 ABG O2 Saturation 100.0 H ABG Ionized Calcium Sodium Chloride Carbon Dioxide BUN Glucose POC Glucose (mg/dL) 164 H Alkaline Phosphatase Total Protein Albumin Crossmatch See Detail 02/09/21 02/09/21 02/09/21 08:34 09:27 10:35 WBC RBC Hgb Hct Plt Count Neutrophils # Lymphocytes # PT INR ABG pH 7.28 L 7.30 L ABG pCO2 ABG pO2 364 H 119 H ABG HCO3 19 L ABG Total CO2 ABG O2 Saturation 100.0 H 98.8 H 98.3 H ABG Ionized Calcium Sodium Chloride Carbon Dioxide BUN Glucose POC Glucose (mg/dL) Alkaline Phosphatase Total Protein Albumin Crossmatch 02/09/21 02/09/21 02/09/21 11:04 11:36 12:33 WBC RBC Hgb Hct Plt Count Neutrophils # Lymphocytes # PT INR ABG pH 7.33 L ABG pCO2 ABG pO2 110 H 112 H ABG HCO3 20 L ABG Total CO2 ABG O2 Saturation 98.8 H 99.0 H 97.3 H ABG Ionized Calcium 4.4 L Sodium Chloride Carbon Dioxide BUN Glucose POC Glucose (mg/dL) Alkaline Phosphatase Total Protein Albumin Crossmatch 02/09/21 02/09/21 02/09/21 13:41 13:41 13:41 WBC RBC 3.19 L Hgb 10.5 L D Hct 29.1 L Plt Count 102 L Neutrophils # 8.5 H Lymphocytes # PT 12.5 H INR 1.2 H ABG pH ABG pCO2 ABG pO2 ABG HCO3 ABG Total CO2 ABG O2 Saturation ABG Ionized Calcium Sodium Chloride 109 H Carbon Dioxide 21 L BUN 27 H Glucose 128 H POC Glucose (mg/dL) Alkaline Phosphatase 36 L Total Protein 5.3 L Albumin 3.4 L Crossmatch 02/09/21 02/09/21 02/09/21 13:42 13:58 13:59 WBC RBC Hgb Hct Plt Count Neutrophils # Lymphocytes # PT INR ABG pH 7.30 L ABG pCO2 48 H ABG pO2 397 H ABG HCO3 ABG Total CO2 25 H ABG O2 Saturation 99.9 H ABG Ionized Calcium Sodium Chloride Carbon Dioxide BUN Glucose POC Glucose (mg/dL) 139 H 157 H Alkaline Phosphatase Total Protein Albumin Crossmatch 02/09/21 02/09/21 02/09/21 14:42 16:01 16:30 WBC 12.4 H RBC 3.43 L Hgb 11.1 L Hct 31.4 L Plt Count 133 L Neutrophils # 10.6 H Lymphocytes # 0.8 L PT INR ABG pH ABG pCO2 ABG pO2 ABG HCO3 ABG Total CO2 ABG O2 Saturation ABG Ionized Calcium Sodium Chloride Carbon Dioxide BUN Glucose POC Glucose (mg/dL) 175 H 165 H Alkaline Phosphatase Total Protein Albumin Crossmatch 02/09/21 02/09/21 02/09/21 17:02 17:32 18:04 WBC RBC Hgb Hct Plt Count Neutrophils # Lymphocytes # PT INR ABG pH 7.33 L ABG pCO2 ABG pO2 170 H ABG HCO3 ABG Total CO2 ABG O2 Saturation 99.6 H ABG Ionized Calcium Sodium Chloride Carbon Dioxide BUN Glucose POC Glucose (mg/dL) 150 H 138 H Alkaline Phosphatase Total Protein Albumin Crossmatch 02/09/21 02/09/21 02/09/21 18:56 19:58 20:03 WBC 11.9 H RBC 3.51 L Hgb 11.1 L Hct 33.1 L Plt Count 103 L Neutrophils # 10.5 H Lymphocytes # 0.5 L PT INR ABG pH ABG pCO2 ABG pO2 ABG HCO3 ABG Total CO2 ABG O2 Saturation ABG Ionized Calcium Sodium Chloride Carbon Dioxide BUN Glucose POC Glucose (mg/dL) 139 H 135 H Alkaline Phosphatase Total Protein Albumin Crossmatch 02/09/21 02/09/21 02/09/21 21:10 22:23 23:04 WBC RBC Hgb Hct Plt Count Neutrophils # Lymphocytes # PT INR ABG pH ABG pCO2 ABG pO2 ABG HCO3 ABG Total CO2 ABG O2 Saturation ABG Ionized Calcium Sodium Chloride Carbon Dioxide BUN Glucose POC Glucose (mg/dL) 134 H 132 H 142 H Alkaline Phosphatase Total Protein Albumin Crossmatch 02/10/21 02/10/21 02/10/21 00:25 01:04 02:06 WBC RBC Hgb Hct Plt Count Neutrophils # Lymphocytes # PT INR ABG pH ABG pCO2 ABG pO2 ABG HCO3 ABG Total CO2 ABG O2 Saturation ABG Ionized Calcium Sodium Chloride Carbon Dioxide BUN Glucose POC Glucose (mg/dL) 126 H 120 H 123 H Alkaline Phosphatase Total Protein Albumin Crossmatch 02/10/21 02/10/21 02/10/21 03:16 04:00 04:00 WBC RBC 3.21 L Hgb 10.7 L Hct 30.3 L Plt Count 124 L Neutrophils # 8.6 H Lymphocytes # 0.7 L PT INR ABG pH ABG pCO2 ABG pO2 ABG HCO3 ABG Total CO2 ABG O2 Saturation ABG Ionized Calcium Sodium 136 L Chloride Carbon Dioxide BUN Glucose 116 H POC Glucose (mg/dL) 121 H Alkaline Phosphatase 34 L Total Protein 5.3 L Albumin 3.3 L Crossmatch 02/10/21 02/10/21 02/10/21 04:08 05:10 07:12 WBC RBC Hgb Hct Plt Count Neutrophils # Lymphocytes # PT INR ABG pH ABG pCO2 ABG pO2 ABG HCO3 ABG Total CO2 ABG O2 Saturation ABG Ionized Calcium Sodium Chloride Carbon Dioxide BUN Glucose POC Glucose (mg/dL) 121 H 127 H 145 H Alkaline Phosphatase Total Protein Albumin Crossmatch 02/10/21 08:13 WBC RBC Hgb Hct Plt Count Neutrophils # Lymphocytes # PT INR ABG pH ABG pCO2 ABG pO2 ABG HCO3 ABG Total CO2 ABG O2 Saturation ABG Ionized Calcium Sodium Chloride Carbon Dioxide BUN Glucose POC Glucose (mg/dL) 200 H Alkaline Phosphatase Total Protein Albumin Crossmatch - Diagnostic Findings Chest x-ray: report reviewed, image reviewed Assessment and Plan Plan: Assessment: #1. Coronary artery disease, symptomatic, status post off-pump CABG 4, with the ABBOTT to LAD, vein graft ABBOTT to high diagonal, sequential vein graft to PDA and SANDRA. Ligation of the left atrial appendage with a 35 mm AtriCure clip on 0 02/09/2021 #2. Routine postop ventilator management, patient was successfully weaned and extubated on postoperative day #0, on 02/09/2021 within 5 hours of OR exit time #3. Hypertension #4. Hyperlipidemia #5. Diabetes mellitus type 2 #6. Family history of early onset coronary artery disease #7. Previous history of CVA 2 with residual left-sided weakness and balance issues #8. Ulcerative colitis, with history of bowel resection and ileostomy on 03/19/2018 #9. Obstructive sleep apnea on home CPAP #10. Former smoker, with preop FEV1 value of 2.61 L #11. Osteoarthritis Plan: Patient tolerating extubation quite well so far This morning's chest x-ray has been reviewed showing atelectasis Encourage deep breathing and coughing Incentive spirometry use Hemodynamically stable Increase activity as tolerated No acute issues overnight We'll continue to follow I performed a history & physical examination of the patient and discussed their management with my nurse practitioner, Pamela Dumont. I reviewed the nurse practitioner's note and agree with the documented findings and plan of care. Lung sounds are positive for clear breath sounds throughout the lung galo. The findings and the impression was discussed with the patient. I attest to the documentation by the nurse practitioner. Time with Patient: Greater than 30
[2021-02-10 09:55] VITALS: BMI 26.3
[2021-02-10 10:07] LABS: Glucose,Whole Blood 137 mg/dL (75-99)
--- NOTE | 2021-02-10 10:16 | P.CRDCN ---
History of Present Illness History of present illness: HISTORY OF PRESENTING ILLNESS This is a pleasant 70-year-old male past medical history significant for type 2 diabetes requiring insulin, hypertension, hyperlipidemia, ulcerative colitis s/p ileostomy at [facility] in 2018, previous total colectomy and lysis of adhesions, CVA with speech disturbance in 2014, CVA with left sided weakness in 2018 unclear etiology (started on Eliquis 5mg BID no documented atrial fibrillation). He follows in the office with Dr. Gaitan. We have been asked to see in consultation for post operative management. Patient had episodes of unstable angina and recent echocardiogram on 01/26/2021 revealed EF 40%, severe hypokinesia of mid to distal anteroseptal wall and joining apex, no pulmonary hypertension, moderate concentric LVH. Cardiac catheterization was advised. He underwent cardiac catheterization with Dr. Gaitan on 02/03, which revealed 60-70% stenosis to his left main coronary artery, and 80% stenosis to his mid left anterior descending coronary artery, a 40% stenosis to his proximal left anterior descending coronary artery, and an 80% stenosis to his PLV branch of his right coronary artery. Coronary artery bypass graft was recommended and patient followed up with CT surgery. On 02/09/21 patient underwent off-pump CABG 4 with ABBOTT to LAD, vein graft ABBOTT to high diagonal, sequential vein graft to PDA and SANDRA, Ligation of the left atrial appendage with a 35 mm AtriCure clip, Endovascular vein harvest with Dr. Dhillon. 02/10/21 Patient seen and examined in the intensive care unit. He is POD #1. He is sitting up in the bedside chair, he is doing well. He was extubated 02/09 night. His pain is controlled. He is maintaining sinus mechanism. He is hemodynamically stable. He is using his incentive spirometer with volumes around 500mL. Laborat ory data WBC 23, hemoglobin 10.7, platelets 124, sodium 136, potassium 4.2, BUN 19, serum creatinine 0.91, magnesium 1.7. He's currently maintained on aspirin 81mg daily, atorvastatin 40 mg nightly, Plavix 75 mg daily, metoprolol tartrate 25 mg twice a day which was increased today. Patient also receiving IV albumin. REVIEW OF SYSTEMS At the time of my exam: CONSTITUTIONAL: Denies fever or chills. CARDIOVASCULAR: +incisional pain. Denies chest pain, shortness of breath, orthopnea, PND or palpitations. RESPIRATORY: Denies cough. GASTROINTESTINAL: Denies abdominal pain, diarrhea, constipation, nausea or vomiting. MUSCULOSKELETAL: Denies myalgias. NEUROLOGIC: Denies numbness, tingling, headacbe or weakness. ENDOCRINE: Denies fatigue, weight change, polydipsia or polyurina. GENITOURINARY: Denies burning, hematuria or urgency with micturation. HEMATOLOGIC: Denies history of anemia or bleeding. PHYSICAL EXAMINATION Blood pressure 107/50 heart rate 85 afebrile and maintaining oxygen saturation 97% on 3L nasal cannula CONSTITUTIONAL: No apparent distress. HEENT: Head is normocephalic. Pupils are equal, round. Sclerae anicteric. Mucous membranes of the mouth are moist. No JVD. No carotid bruit. CHEST EXAMINATION: Lungs are diminished bases bilaterally to auscultation. No chest wall tenderness is noted on palpation or with deep breathing. Right internal jugular Mifflin/Cordis, mediastinal and left pleural chest tubes present. HEART EXAMINATION: Regular rate and rhythm. S1, S2 heard. No murmurs, gallops or rub. ABDOMEN: Soft, nontender. Positive bowel sounds. : Melvin with yellow urine. 3.1L urine output over the past 24 hours. EXTREMITIES: 2+ peripheral pulses, no lower extremity edema and no calf tenderness. Right radial arterial line in place. NEUROLOGIC EXAMINATION: Patient is awake, alert and oriented x3. ASSESSMENT Coronary artery disease Status post coronary artery bypass graft x 4 with ABBOTT to LAD, vein graft ABBOTT to high diagonal, sequential vein graft to PDA and SANDRA and Ligation of the left atrial appendage Type 2 diabetes requiring insulin Hypertension Hyperlipidemia History of ulcerative colitis s/p ileostomy at [facility] in 2018, previous total colectomy and lysis of adhesions History of CVA with speech disturbance in 2015 and CVA with left sided weakness in 2018 PLAN No acute events overnight, patient is hemodynamically stable Beta oscar increased today Continue aspirin, statin, Plavix, beta oscar therapy Encourage incentive spirometry 10 times every hour while awake. Wean O2 as tolerated Post operative management per CT surgery Will continue to follow On discharge, patient will follow up with Dr. Gaitan Further recommendations based on clinical course Nurse Practitioner note has been reviewed, I agree with a documented findings and plan of care. Patient was seen and examined. Past Medical History Past Medical History: Atrial Fibrillation, CVA/TIA, Diabetes Mellitus, Eye Disorder, Hearing Disorder / Deafness, Hyperlipidemia, Hypertension, Sleep Apnea/CPAP/BIPAP Additional Past Medical History / Comment(s): 05/2015 CVA and 08/2017, continues to have occasional balance issues. ., Ulcerative Colitis, hx kidney stone. BPH. illeostomy placed March 19, 2018 uses cpap at home for sleep apnea History of Any Multi-Drug Resistant Organisms: None Reported Past Surgical History: Appendectomy, Bowel Resection, Heart Catheterization, Hernia Repair, Joint Replacement Additional Past Surgical History / Comment(s): APPENDEX RUPTURE, HAD J pouch. Left partial knee replacement. 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 HE WAS INSTRUCTED TO NOT RECEIVE NITROUS OXIDE OR RIDE IN A PLANE UNTIL GAS BUBBLE IS GONE. Smoking Status: Former smoker - Past Family History Mother Family Medical History: Cancer, Diabetes Mellitus Additional Family Medical History / Comment(s): Mother at age 84 from [place] Father Additional Family Medical History / Comment(s): Father is with history of coronary artery disease. Patient has 4 children that are healthy with no major medical problems. Brother(s) Additional Family Medical History / Comment(s): Patient has 4 brothers. Two at the age of 44 from coronary artery disease with history of tobacco use and alcohol dependence. One from aneurysm in the chest. Medications and Allergies Home Medications Medication Instructions Recorded Confirmed Type Atorvastatin [Lipitor] 40 mg PO HS 02/06/17 02/09/21 History DULoxetine HCL [Cymbalta] 90 mg PO DAILY 02/06/17 02/09/21 History Finasteride [Proscar] 5 mg PO DAILY 02/06/17 02/09/21 History Multivit-Min/FA/Lycopen/Lutein 1 cap PO DAILY 02/06/17 02/09/21 History [Centrum Silver Men Tablet] Tamsulosin [Flomax] 0.4 mg PO HS 02/06/17 02/09/21 History Trospium Chloride [Sanctura] 20 mg PO BID 02/06/17 02/09/21 History Cholecalciferol [Vitamin D3 (25 1,000 unit PO DAILY 11/19/17 02/09/21 History Mcg = 1000 Iu)] Ferrous Sulfate [Iron (65 MG 25 mg PO HS 12/18/17 02/09/21 History Elemental)] Metoprolol Succinate (ER) [Toprol 50 mg PO QAM 12/05/18 02/09/21 History XL] Omeprazole 40 mg PO DAILY 12/05/18 02/09/21 History Ascorbic Acid [Vitamin C] 1,000 mg PO DAILY 08/29/20 02/09/21 History Cranberry Fruit Extract [Cranberry] 450 mg PO DAILY #0 08/29/20 02/09/21 History Guar Gum (Unknown Strength) 2 tab PO BID@0200,1400 08/29/20 02/09/21 History Loratadine [Claritin] 10 mg PO DAILY 08/29/20 02/09/21 History Turmeric Root Extract [Turmeric] 1,000 mg PO BID 08/29/20 02/09/21 History Dulaglutide [Trulicity] 1.5 mg SQ TH 02/01/21 02/09/21 History Insulin Glargine,Hum.rec.anlog 45 unit SQ HS 02/01/21 02/09/21 History [Basaglar Kwikpen U-100] Aspirin 81 mg PO DAILY 02/08/21 02/09/21 History INSULIN LISPRO (HumaLOG) [humaLOG] 4 units SQ AC-BID 02/08/21 02/09/21 History Allergies Allergy/AdvReac Type Severity Reaction Status Date / Time codeine Allergy Rash/Hives Verified 02/09/21 06:12 morphine Allergy Rash/Hives Verified 02/09/21 06:12 Physical Exam Vitals: Vital Signs Temp Pulse Resp BP BP Pulse Ox 02/09/21 06:10 96.9 F L 96 16 119/87 125/83 97 Intake and Output 02/08/21 02/09/21 02/09/21 22:59 06:59 14:59 Intake Total 100 53 Output Total 1500 Balance 100 -1447 Intake: IV 100 53 Output: Urine 600 Estimated Blood Loss 900 Other: Weight 83.6 kg Results 02/10/21 04:00 02/10/21 04:00 Current Medications Generic Name Dose Route Start Last Admin Trade Name Freq PRN Reason Stop Dose Admin Hydrocodone Bitart/Acetaminophen 2 each 02/10/21 01:07 Hydrocodone/Apap 5-325mg 1 Each Tab PO Q4HR PRN Severe Pain Hydrocodone Bitart/Acetaminophen 1 each 02/10/21 01:07 Hydrocodone/Apap 5-325mg 1 Each Tab PO Q4HR PRN Moderate Pain Albuterol/Ipratropium 3 ml 02/09/21 13:12 Ipratropium-Albuterol 3 Ml Neb INHALATION RT-Q2H PRN Shortness Of Breath Or Wheezing Albuterol/Ipratropium 3 ml 02/09/21 16:00 Ipratropium-Albuterol 3 Ml Neb INHALATION 02/09/21 19:08 RT-Q4H KRISTIN Albuterol/Ipratropium 3 ml 02/09/21 20:00 Ipratropium-Albuterol 3 Ml Neb INHALATION RT-QID [facility] Ascorbic Acid 1,000 mg 02/10/21 09:00 Ascorbic Acid 500 Mg Tab PO DAILY [facility] Aspirin 325 mg 02/10/21 09:00 Aspirin 325 Mg Tab PO DAILY [facility] Atorvastatin Calcium 40 mg 02/09/21 21:00 Atorvastatin 40 Mg Tab PO HS [facility] Benzocaine/Menthol 1 each 02/09/21 13:12 Benzocaine/Menthol Lozeng 1 Each Lozenge MUCOUS MEM Q2H PRN Sore Throat Bisacodyl 10 mg 02/10/21 09:00 Bisacodyl 10 Mg Supp RECTAL DAILY PRN Constipation Cholecalciferol 25 mcg 02/10/21 09:00 Cholecalciferol 25 Mcg (1000 Iu) Tablet PO DAILY [facility] Clopidogrel Bisulfate 75 mg 02/10/21 09:00 Clopidogrel 75 Mg Tab PO DAILY [facility] Duloxetine HCl 90 mg 02/10/21 09:00 Duloxetine Hcl 30 Mg Capsule.Dr PO DAILY [facility] Ferrous Sulfate 325 mg 02/09/21 21:00 Ferrous Sulfate 325 Mg Tab PO HS [facility] Finasteride 5 mg 02/10/21 09:00 Finasteride 5 Mg Tab PO DAILY [facility] Heparin Sodium (Porcine) 5,000 unit 02/09/21 16:00 Heparin Sodium,Porcine/Pf 5,000 Unit/0.5 Ml Syringe SQ Q8HR [facility] Hydralazine HCl 10 mg 02/09/21 13:12 Hydralazine Hcl 20 Mg/Ml 1 Ml Vial IVP Q1H PRN Blood Pressure - High Amiodarone HCl 150 mg/ 103 mls @ 618 mls/hr 02/09/21 13:12 Dextrose/Water IV .Q10M PRN A.FIB/FLUTTER Protocol Amiodarone HCl 360 mg/ 207.2 mls @ 34.533 mls/hr 02/09/21 13:12 Dextrose/Water IV .Q6H PRN A.FIB/FLUTTER Protocol 1 MG/MIN Albumin Human 250 ml/ IV 250 mls @ 250 mls/hr 02/09/21 13:12 Solution IVPB 02/11/21 13:13 Q1HR PRN For Volume Acetaminophen 1,000 mg/ IV 100 mls @ 400 mls/hr 02/09/21 18:00 Solution IVPB 02/10/21 00:14 Q6HR KRISTIN Clevidipine 25 mg/ IV Solution 50 mls @ 2 mls/hr 02/09/21 13:30 IV .Q24H KRISTIN Protocol 1 MG/HR Nitroglycerin/Dextrose 50 mg/ 250 mls @ 1.5 mls/hr 02/09/21 13:30 IV Solution IV .Q24H KRISTIN 5 MCG/MIN Amiodarone HCl 450 mg/ 250 mls @ 16.667 mls/hr 02/09/21 13:12 Dextrose/Water IV .Q15H PRN A.FIB/FLUTTER Protocol 0.5 MG/MIN Lactated Ringer's 1,000 mls @ 50 mls/hr 02/09/21 13:15 Lactated Ringers IV .Q20H KRISTIN Propofol 1,000 mg/ IV Solution 100 mls @ 0 mls/hr 02/09/21 13:30 IV .Q0M KRISTIN Protocol Titrate Dexmedetomidine HCl 400 mcg/ 100 mls @ 0 mls/hr 02/09/21 13:30 IV Solution IV 02/10/21 13:31 .Q0M KRISTIN Protocol Titrate Cefazolin Sodium 2 gm/ Sodium 50 mls @ 100 mls/hr 02/09/21 16:00 Chloride IVPB 02/10/21 08:29 Q8HR KRISTIN Calcium Gluconate 2 gm/ Sodium 120 mls @ 100 mls/hr 02/09/21 13:12 Chloride IVPB 02/16/21 13:13 ONCE PRN Ionized Calcium less than 4.4 Insulin Human Regular 100 unit 101 mls @ 0 mls/hr 02/09/21 13:30 / Sodium Chloride IV .Q0M KRISTIN Protocol Per Protocol Magnesium Hydroxide 2,400 mg 02/10/21 09:00 Magnesium Hydroxide 2,400 Mg/10 Ml Cup PO BID PRN Constipation Metoclopramide HCl 10 mg 02/09/21 13:12 Metoclopramide 5 Mg/Ml 2 Ml Vial IVP Q4H PRN Nausea And Vomiting Metoprolol Tartrate 12.5 mg 02/10/21 09:00 Metoprolol Tartrate 12.5 Mg Tab PO BID [facility] Miscellaneous Information 1 each 02/09/21 13:12 Potassium Replacement Protocol 1 Each Misc MISCELLANE DAILY PRN Per Protocol Protocol Miscellaneous Information 1 each 02/09/21 13:12 Magnesium Replacement Protocol 1 Each Misc MISCELLANE DAILY PRN Per Protocol Protocol Miscellaneous Information 1 each 02/09/21 13:12 Phosphorus Replacement Protoco 1 Each Misc MISCELLANE DAILY PRN Per Protocol Protocol Multivitamins 1 each 02/10/21 09:00 Multivitamins, Thera 1 Each Tab PO DAILY KRISTIN Ondansetron HCl 4 mg 02/09/21 13:12 Ondansetron 4 Mg/2 Ml Vial IVP Q6HR PRN Nausea And Vomiting Oxycodone HCl 10 mg 02/09/21 13:12 Oxycodone Hcl 5 Mg Tab PO 02/10/21 01:07 Q4H PRN Severe Pain Oxycodone HCl 5 mg 02/09/21 13:12 Oxycodone Hcl 5 Mg Tab PO 02/10/21 01:07 Q4H PRN Moderate Pain Pantoprazole Sodium 40 mg 02/10/21 09:00 Pantoprazole 40 Mg/10 Ml Vial IVP DAILY KRISTIN Senna/Docusate Sodium 2 each 02/10/21 21:00 Sennosides-Docusate Sodium 1 Each Tab PO HS KRISTIN Sodium Chloride 10 ml 02/09/21 21:00 Sodium Chloride 0.9% Flush 10 Ml Syringe IV BID KRISTIN Tamsulosin HCl 0.4 mg 02/10/21 21:00 Tamsulosin 0.4 Mg Cap.Er.24h PO HS [facility] Trospium 20 mg 02/10/21 09:00 Trospium Chloride 20 Mg Tablet PO BID [facility] Intake and Output 02/08/21 02/09/21 02/09/21 22:59 06:59 14:59 Intake Total 100 53 Output Total 1500 Balance 100 -1447 Intake: IV 100 53 Output: Urine 600 Estimated Blood Loss 900 Other: Weight 83.6 kg
[2021-02-10 11:40] LABS: Glucose,Whole Blood 122 mg/dL (75-99)
--- NOTE | 2021-02-10 12:00 | P.CONS ---
History of Present Illness - Reason for Consult Consult date: 02/09/21 Medical management, CAD, type 2 diabetes on insulin, coagulopathy and quest Requesting physician: Ajay Dhillon - Chief Complaint History of CAD post CABG, question blood A. fib, type 2 diabetes and coliti - History of Present Illness HISTORY OF PRESENT ILLNESS 70-year-old male one of my office patient known to me for many years with history of ulcerative colitis, recurrent kidney stone, hypertension, hyperlipidemia and type 2 diabetes on insulin with the blood to have recurrent sinus symptom of shortness of breath along with chest pain and tightness. Patient was scheduled for stress test originally his symptom becomes slightly worse was seen Dr. DEDE blum and decision to go for heart cath was done and shows three-vessel disease. Patient was seen Dr. Dhillon and scheduled for elective bypass surgery which was done successfully today patient was extubated in intensive care unit feeling well with no pain and hemodynamically stable. Blood sugar has been slightly but elevated patient was seen his neighbor Dr. Asha blum who started him on shorter acting insulin before meals meals plus continue glucose monitor was placed last week and showing his blood sugar running below 200. Patient also still on long acting insulin around 44 units daily along with Trulicity 1.5 mg injection a week. Patient had CVA in 2018 and the time had atypical arrhythmia with his recurrent blood clot and having more than 2 DVT along with arrhythmia was started on anticoagulation which patient has been on since. Apparently cardiology are planning to take him off anticoagulation completely and do coagulopathy study if need. With Dr. Dhillon patient had 4 vessel bypass which is ABBOTT to the LAD, vein graft ABBOTT to high diagonal, vein graft to PDA and SANDRA also patient had left atrial appendage with 35mm AtrialCure clip to reduce any type of thrombus from A. fib if it ever happened. Patient was transferred to the ICU as I mentioned shortly was extubated successfully doing well able to answer his question properly. Blood sugar is mildly elevated patient required 2 unit of insulin drip and hour to keep his blood sugar below 120. REVIEW OF SYSTEMS Constitutional: No fever, no chills, no night sweats. No weight change. Mild weakness fatigue and lethargy following his surgery and extubation. EENT: No headache. No blurred vision or double vision, no loss of vision. No loss of Hearing, no ringing in the ears, no dizziness. No nasal drainage or congestion. No epistaxis. No sore throat. Lungs: Slight shortness of breath still have chest tube in no major cough and mild dyspnea. Cardiovascular: Positive chest pain from his incision from his surgery no lower extremity edema no PND or orthopnea still have slight dyspnea on and off no palpitation pulse rate is running well and no major change in blood pressure currently. Abdominal: No abdominal pain. No nausea, vomiting. No diarrhea. No constipation. No bloody or tarry stools.. No loss of appetite. Genitourinary: No dysuria, increased frequency, urgency. No urinary retention, still have catheter at this point. Musculoskeletal: No myalgias. No muscle weakness, no gait dysfunction, no frequent falls. No back pain. No neck pain. Integumentary: No wounds, no lesions. No rash or pruritus. No unusual bruising. No change in hair or nails. Neurologic: No aphasia. No facial droop. No change in mentation. No head injury. No headache. No paralysis. No paresthesia. Psychiatric: No depression. No anxiety. No mood swings. Endocrine: No abnormal blood sugars. No weight change. No excessive sweating or thirst. No cold intolerance. SOCIAL HISTORY Patient smokes for few years he quit back in 1974, no alcohol abuse, no illicit drug use, no use of marijuana does not use oxygen at home the patient has obstructive sleep apnea his using CPAP since 2018. FAMILY HISTORY His mother age 84 from colon cancer she was diabetic, father from coronary artery disease, patient had 4 brothers 2 of them had has one at age 44 from coronary artery disease and one from a thoracic aneurysm rupture. Patient has 4 children with no major medical problem. PHYSICAL EXAMINATION Gen: This is a well-developed laying in bed shortly after extubation mildly exha usted does not look in any respiratory distress still have nasal cannula for oxygen running around 4 L at the time. HEENT: Head is atraumatic, normocephalic. Pupils equal, round. Sclerae is anicteric. NECK: Supple. No JVD. No lymphadenopathy. No thyromegaly. Hanover-Kenyatta catheter in the right side. LUNGS: Decreased expansion bilaterally specially in the left side positive fine rhonchi with no crackles chest wall incision looks fine with 2 chest tube. . HEART: Regular rate and rhythm. No murmur. ABDOMEN: Soft. Bowel sounds are present. No masses. No tenderness. EXTREMITIES: No pedal edema. No calf tenderness. NEUROLOGICAL: Patient is awake, alert and oriented x3. Cranial nerves 2 through 12 are grossly intact. ASSESSMENT AND PLAN 1. CAD with multiple coronary artery disease post 4 vessel bypass surgery patient is doing well continue current management still in the ICU was extubated successfully he is not on any vasopressors at this point. 2 history of atrophy fibrillation: Post at 3L appendage with AtrialCure clip doing well so far pulse rates under control with no sign of A. fib. 3 type 2 diabetes: Has been on insulin and Tradjenta along with Trulicity, continue insulin drip through the night with switch him tomorrow to 25 units of Lantus at night along with 5 units of NovoLog before meals meals plus sliding scales coverage every 4 hours and try to titrate Lantus to keep the blood sugar below 120. Patient apparently has continue glucose monitor which will be place back on tomorrow. 4 history of ulcerative colitis with multiple complication up till patient had subtotal colectomy and has been doing well since no sign of anemia or any active bleed. 5 history of hypertension: Has been on losartan 25 mg a day along with amlodipine 5 mg daily and Toprol-XL 50 mg a day we will start patient medication tomorrow. 6 BPH: Remain on Proscar and Flomax watch for any urinary retention. 7 hyperlipidemia: Remain on atorvastatin 40 mg a day. 8 chronic diarrhea: Patient had short bowel syndrome along with lifelong history of colitis has been on Lomotil on as-needed basis. 9 chronic history of iron deficiency anemia: Remain on iron supplement daily. 10 severe GERD: Resume omeprazole at 20 mg daily. 11 history of sleep apnea: Has been using CPAP. 12 GI prophylaxis: Remain on omeprazole. CODE STATUS: Full code. Dr. Dhillon thank you very much for the consult if I can be any further help to please let me know. Past Medical History Past Medical History: Atrial Fibrillation, CVA/TIA, Diabetes Mellitus, Eye Disorder, Hearing Disorder / Deafness, Hyperlipidemia, Hypertension, Sleep Apnea/CPAP/BIPAP Additional Past Medical History / Comment(s): 05/2015 CVA and 08/2017, continues to have occasional balance issues. ., Ulcerative Colitis, hx kidney stone. BPH. illeostomy placed March 19, 2018 uses cpap at home for sleep apnea History of Any Multi-Drug Resistant Organisms: None Reported Past Surgical History: Appendectomy, Bowel Resection, Heart Catheterization, Hernia Repair, Joint Replacement Additional Past Surgical History / Comment(s): APPENDEX RUPTURE, HAD J pouch. Left partial knee replacement. COLONOSCOPY, bilateral cataract extraction with lens implants, mesh with hernia repair, exama, colectomy with ileostomy Past Anesthesia/Blood Transfusion Reactions: No Reported Reaction Additional Past Anesthesia/Blood Transfusion Reaction / Comm: PATIENT HAD SURGERY FOR LEFT EYE DETACHED RETINA AND DEVELOPED GAS BUBBLE IN L EYE. HE WAS INSTRUCTED TO NOT RECEIVE NITROUS OXIDE OR RIDE IN A PLANE UNTIL GAS BUBBLE IS GONE. Smoking Status: Former smoker - Past Family History Mother Family Medical History: Cancer, Diabetes Mellitus Additional Family Medical History / Comment(s): Mother at age 84 from COLON CA Father Additional Family Medical History / Comment(s): Father is with history of coronary artery disease. Patient has 4 children that are healthy with no major medical problems. Brother(s) Additional Family Medical History / Comment(s): Patient has 4 brothers. Two at the age of 44 from coronary artery disease with history of tobacco use and alcohol dependence. One from aneurysm in the chest. Medications and Allergies Home Medications Medication Instructions Recorded Confirmed Type Atorvastatin [Lipitor] 40 mg PO HS 02/06/17 02/09/21 History DULoxetine HCL [Cymbalta] 90 mg PO DAILY 02/06/17 02/09/21 History Finasteride [Proscar] 5 mg PO DAILY 02/06/17 02/09/21 History Multivit-Min/FA/Lycopen/Lutein 1 cap PO DAILY 02/06/17 02/09/21 History [Centrum Silver Men Tablet] Tamsulosin [Flomax] 0.4 mg PO HS 02/06/17 02/09/21 History Trospium Chloride [Sanctura] 20 mg PO BID 02/06/17 02/09/21 History Cholecalciferol [Vitamin D3 (25 1,000 unit PO DAILY 11/19/17 02/09/21 History Mcg = 1000 Iu)] Ferrous Sulfate [Iron (65 MG 25 mg PO HS 12/18/17 02/09/21 History Elemental)] Metoprolol Succinate (ER) [Toprol 50 mg PO QAM 12/05/18 02/09/21 History XL] Omeprazole 40 mg PO DAILY 12/05/18 02/09/21 History Ascorbic Acid [Vitamin C] 1,000 mg PO DAILY 08/29/20 02/09/21 History Cranberry Fruit Extract [Cranberry] 450 mg PO DAILY #0 08/29/20 02/09/21 History Guar Gum (Unknown Strength) 2 tab PO BID@0200,1400 08/29/20 02/09/21 History Loratadine [Claritin] 10 mg PO DAILY 08/29/20 02/09/21 History Turmeric Root Extract [Turmeric] 1,000 mg PO BID 08/29/20 02/09/21 History Dulaglutide [Trulicity] 1.5 mg SQ TH 02/01/21 02/09/21 History Insulin Glargine,Hum.rec.anlog 45 unit SQ HS 02/01/21 02/09/21 History [Basaglar Kwikpen U-100] Aspirin 81 mg PO DAILY 02/08/21 02/09/21 History INSULIN LISPRO (HumaLOG) [humaLOG] 4 units SQ AC-BID 02/08/21 02/09/21 History Allergies Allergy/AdvReac Type Severity Reaction Status Date / Time codeine Allergy Rash/Hives Verified 02/09/21 06:12 morphine Allergy Rash/Hives Verified 02/09/21 06:12 Physical Exam Vitals: Vital Signs Temp Pulse Pulse Resp BP BP BP 02/09/21 23:00 105 H 15 02/09/21 22:00 106 H 18 02/09/21 21:19 110 H 02/09/21 21:10 109 H 02/09/21 21:00 108 H 16 02/09/21 20:00 108 H 14 108/70 02/09/21 19:00 106 H 15 108/70 02/09/21 18:30 106 H 16 02/09/21 18:00 106 H 12 02/09/21 17:30 108 H 18 02/09/21 17:00 107 H 15 02/09/21 16:45 107 H 15 02/09/21 16:30 108 H 17 02/09/21 16:21 104 H 02/09/21 16:15 106 H 11 L 02/09/21 16:04 105 H 02/09/21 16:00 106 H 22 108/72 02/09/21 15:45 106 H 12 02/09/21 15:30 106 H 24 99/78 02/09/21 15:15 103 H 17 02/09/21 15:00 104 H 17 02/09/21 14:45 103 H 17 02/09/21 14:30 102 H 12 02/09/21 14:15 102 H 12 02/09/21 14:00 102 H 12 02/09/21 13:45 101 H 12 122/82 02/09/21 06:10 96.9 F L 96 16 119/87 125/83 Pulse Ox 02/09/21 23:00 97 02/09/21 22:00 98 02/09/21 21:19 02/09/21 21:10 02/09/21 21:00 97 02/09/21 20:00 97 02/09/21 19:00 97 02/09/21 18:30 98 02/09/21 18:00 97 02/09/21 17:30 96 02/09/21 17:00 96 02/09/21 16:45 96 02/09/21 16:30 96 02/09/21 16:21 02/09/21 16:15 98 02/09/21 16:04 02/09/21 16:00 96 02/09/21 15:45 96 02/09/21 15:30 98 02/09/21 15:15 97 02/09/21 15:00 97 02/09/21 14:45 98 02/09/21 14:30 97 02/09/21 14:15 98 02/09/21 14:00 97 02/09/21 13:45 99 02/09/21 06:10 97 Intake and Output 02/09/21 02/09/21 02/10/21 14:59 22:59 06:59 Intake Total 011.978 5480.004 69.201 Output Total 1595 913 90 Balance -1439.634 101.004 -20.799 Intake: IV 142 702 59 .9 NS pressure bag 9 72 9 CO/CI 30 230 Lactated Ringers 1,000 ml 50 400 50 @ 50 mls/hr IV .Q20H ON LICENSE OF [facility] Rx#:[id number] Intake, IV Titration 13.366 12.004 10.201 Amount Insulin Regular 100 unit 1.035 11.001 10.201 In Sodium Chloride 0.9% 100 ml @ Per Protocol IV .Q0M ON LICENSE OF [facility] Rx#:[id number] propofoL 1,000 mg In 12.331 1.003 Empty Bag 1 bag @ Titrate IV .Q0M ON LICENSE OF [facility] Rx#: [id number] Oral 300 Output: Chest Tube Drainage 75 285 20 Chest Tube Left Pleural/ 75 285 20 Mediastinal Drainage 60 Right Calf 60 Urine 620 568 70 Estimated Blood Loss 900 Other: Voiding Method Indwelling Catheter ABP, PAP, CO, CI - Last 8 Hours Arterial Blood Pressure 111/61 Arterial Blood Pressure 123/65 Arterial Blood Pressure 109/65 Arterial Blood Pressure 105/62 Arterial Blood Pressure 94/57 Arterial Blood Pressure 109/63 Arterial Blood Pressure 96/62 Arterial Blood Pressure 104/67 Arterial Blood Pressure 101/65 Arterial Blood Pressure 107/64 Arterial Blood Pressure 94/64 Arterial Blood Pressure 99/66 Pulmonary Artery Pressure 23/8 Pulmonary Artery Pressure 22/12 Pulmonary Artery Pressure 23/10 Pulmonary Artery Pressure 23/11 Pulmonary Artery Pressure 21/7 Pulmonary Artery Pressure 24/10 Pulmonary Artery Pressure 27/15 Pulmonary Artery Pressure 27/17 Pulmonary Artery Pressure 28/16 Pulmonary Artery Pressure 28/15 Pulmonary Artery Pressure 28/15 Pulmonary Artery Pressure 26/15 Cardiac Output 4.8 Cardiac Output 5 Cardiac Output 5.2 Cardiac Output 5.4 Cardiac Output 5.7 Cardiac Index 2.3 Cardiac Index 2.4 Cardiac Index 2.5 Cardiac Index 2.6 Cardiac Index 2.8 Results CBC & Chem 7: 02/10/21 04:00 02/10/21 04:00 Labs: Abnormal Lab Results - Last 24 Hours (Table) 02/08/21 02/09/21 02/09/21 Range/Units 10:04 06:22 08:34 WBC (3.8-10.6) k/uL RBC (4.30-5.90) m/uL Hgb (13.0-17.5) gm/dL Hct (39.0-53.0) % Plt Count (150-450) k/uL Neutrophils # (1.3-7.7) k/uL Lymphocytes # (1.0-4.8) k/uL PT (9.0-12.0) sec INR (<1.2) ABG pH 7.28 L (7.35-7.45) ABG pCO2 (35-45) mmHg ABG pO2 364 H (83-108) mmHg ABG HCO3 19 L (21-25) mmol/L ABG Total CO2 (19-24) mmol/L ABG O2 Saturation 100.0 H (94-97) % ABG Ionized Calcium (4.5-5.3) mg/dL Chloride (98-107) mmol/L Carbon Dioxide (22-30) mmol/L BUN (9-20) mg/dL Glucose (74-99) mg/dL POC Glucose (mg/dL) 164 H (75-99) mg/dL Alkaline Phosphatase (38-126) U/L Total Protein (6.3-8.2) g/dL Albumin (3.5-5.0) g/dL Crossmatch See Detail 02/09/21 02/09/21 02/09/21 Range/Units 08:34 09:27 10:35 WBC (3.8-10.6) k/uL RBC (4.30-5.90) m/uL Hgb (13.0-17.5) gm/dL Hct (39.0-53.0) % Plt Count (150-450) k/uL Neutrophils # (1.3-7.7) k/uL Lymphocytes # (1.0-4.8) k/uL PT (9.0-12.0) sec INR (<1.2) ABG pH 7.28 L 7.30 L (7.35-7.45) ABG pCO2 (35-45) mmHg ABG pO2 364 H 119 H (83-108) mmHg ABG HCO3 19 L (21-25) mmol/L ABG Total CO2 (19-24) mmol/L ABG O2 Saturation 100.0 H 98.8 H 98.3 H (94-97) % ABG Ionized Calcium (4.5-5.3) mg/dL Chloride (98-107) mmol/L Carbon Dioxide (22-30) mmol/L BUN (9-20) mg/dL Glucose (74-99) mg/dL POC Glucose (mg/dL) (75-99) mg/dL Alkaline Phosphatase (38-126) U/L Total Protein (6.3-8.2) g/dL Albumin (3.5-5.0) g/dL Crossmatch 02/09/21 02/09/21 02/09/21 Range/Units 11:04 11:36 12:33 WBC (3.8-10.6) k/uL RBC (4.30-5.90) m/uL Hgb (13.0-17.5) gm/dL Hct (39.0-53.0) % Plt Count (150-450) k/uL Neutrophils # (1.3-7.7) k/uL Lymphocytes # (1.0-4.8) k/uL PT (9.0-12.0) sec INR (<1.2) ABG pH 7.33 L (7.35-7.45) ABG pCO2 (35-45) mmHg ABG pO2 110 H 112 H (83-108) mmHg ABG HCO3 20 L (21-25) mmol/L ABG Total CO2 (19-24) mmol/L ABG O2 Saturation 98.8 H 99.0 H 97.3 H (94-97) % ABG Ionized Calcium 4.4 L (4.5-5.3) mg/dL Chloride (98-107) mmol/L Carbon Dioxide (22-30) mmol/L BUN (9-20) mg/dL Glucose (74-99) mg/dL POC Glucose (mg/dL) (75-99) mg/dL Alkaline Phosphatase (38-126) U/L Total Protein (6.3-8.2) g/dL Albumin (3.5-5.0) g/dL Crossmatch 02/09/21 02/09/21 02/09/21 Range/Units 13:41 13:41 13:41 WBC (3.8-10.6) k/uL RBC 3.19 L (4.30-5.90) m/uL Hgb 10.5 L D (13.0-17.5) gm/dL Hct 29.1 L (39.0-53.0) % Plt Count 102 L (150-450) k/uL Neutrophils # 8.5 H (1.3-7.7) k/uL Lymphocytes # (1.0-4.8) k/uL PT 12.5 H (9.0-12.0) sec INR 1.2 H (<1.2) ABG pH (7.35-7.45) ABG pCO2 (35-45) mmHg ABG pO2 (83-108) mmHg ABG HCO3 (21-25) mmol/L ABG Total CO2 (19-24) mmol/L ABG O2 Saturation (94-97) % ABG Ionized Calcium (4.5-5.3) mg/dL Chloride 109 H (98-107) mmol/L Carbon Dioxide 21 L (22-30) mmol/L BUN 27 H (9-20) mg/dL Glucose 128 H (74-99) mg/dL POC Glucose (mg/dL) (75-99) mg/dL Alkaline Phosphatase 36 L (38-126) U/L Total Protein 5.3 L (6.3-8.2) g/dL Albumin 3.4 L (3.5-5.0) g/dL Crossmatch 02/09/21 02/09/21 02/09/21 Range/Units 13:42 13:58 13:59 WBC (3.8-10.6) k/uL RBC (4.30-5.90) m/uL Hgb (13.0-17.5) gm/dL Hct (39.0-53.0) % Plt Count (150-450) k/uL Neutrophils # (1.3-7.7) k/uL Lymphocytes # (1.0-4.8) k/uL PT (9.0-12.0) sec INR (<1.2) ABG pH 7.30 L (7.35-7.45) ABG pCO2 48 H (35-45) mmHg ABG pO2 397 H (83-108) mmHg ABG HCO3 (21-25) mmol/L ABG Total CO2 25 H (19-24) mmol/L ABG O2 Saturation 99.9 H (94-97) % ABG Ionized Calcium (4.5-5.3) mg/dL Chloride (98-107) mmol/L Carbon Dioxide (22-30) mmol/L BUN (9-20) mg/dL Glucose (74-99) mg/dL POC Glucose (mg/dL) 139 H 157 H (75-99) mg/dL Alkaline Phosphatase (38-126) U/L Total Protein (6.3-8.2) g/dL Albumin (3.5-5.0) g/dL Crossmatch 02/09/21 02/09/21 02/09/21 Range/Units 14:42 16:01 16:30 WBC 12.4 H (3.8-10.6) k/uL RBC 3.43 L (4.30-5.90) m/uL Hgb 11.1 L (13.0-17.5) gm/dL Hct 31.4 L (39.0-53.0) % Plt Count 133 L (150-450) k/uL Neutrophils # 10.6 H (1.3-7.7) k/uL Lymphocytes # 0.8 L (1.0-4.8) k/uL PT (9.0-12.0) sec INR (<1.2) ABG pH (7.35-7.45) ABG pCO2 (35-45) mmHg ABG pO2 (83-108) mmHg ABG HCO3 (21-25) mmol/L ABG Total CO2 (19-24) mmol/L ABG O2 Saturation (94-97) % ABG Ionized Calcium (4.5-5.3) mg/dL Chloride (98-107) mmol/L Carbon Dioxide (22-30) mmol/L BUN (9-20) mg/dL Glucose (74-99) mg/dL POC Glucose (mg/dL) 175 H 165 H (75-99) mg/dL Alkaline Phosphatase (38-126) U/L Total Protein (6.3-8.2) g/dL Albumin (3.5-5.0) g/dL Crossmatch 02/09/21 02/09/21 02/09/21 Range/Units 17:02 17:32 18:04 WBC (3.8-10.6) k/uL RBC (4.30-5.90) m/uL Hgb (13.0-17.5) gm/dL Hct (39.0-53.0) % Plt Count (150-450) k/uL Neutrophils # (1.3-7.7) k/uL Lymphocytes # (1.0-4.8) k/uL PT (9.0-12.0) sec INR (<1.2) ABG pH 7.33 L (7.35-7.45) ABG pCO2 (35-45) mmHg ABG pO2 170 H (83-108) mmHg ABG HCO3 (21-25) mmol/L ABG Total CO2 (19-24) mmol/L ABG O2 Saturation 99.6 H (94-97) % ABG Ionized Calcium (4.5-5.3) mg/dL Chloride (98-107) mmol/L Carbon Dioxide (22-30) mmol/L BUN (9-20) mg/dL Glucose (74-99) mg/dL POC Glucose (mg/dL) 150 H 138 H (75-99) mg/dL Alkaline Phosphatase (38-126) U/L Total Protein (6.3-8.2) g/dL Albumin (3.5-5.0) g/dL Crossmatch 02/09/21 02/09/21 02/09/21 Range/Units 18:56 19:58 20:03 WBC 11.9 H (3.8-10.6) k/uL RBC 3.51 L (4.30-5.90) m/uL Hgb 11.1 L (13.0-17.5) gm/dL Hct 33.1 L (39.0-53.0) % Plt Count 103 L (150-450) k/uL Neutrophils # 10.5 H (1.3-7.7) k/uL Lymphocytes # 0.5 L (1.0-4.8) k/uL PT (9.0-12.0) sec INR (<1.2) ABG pH (7.35-7.45) ABG pCO2 (35-45) mmHg ABG pO2 (83-108) mmHg ABG HCO3 (21-25) mmol/L ABG Total CO2 (19-24) mmol/L ABG O2 Saturation (94-97) % ABG Ionized Calcium (4.5-5.3) mg/dL Chloride (98-107) mmol/L Carbon Dioxide (22-30) mmol/L BUN (9-20) mg/dL Glucose (74-99) mg/dL POC Glucose (mg/dL) 139 H 135 H (75-99) mg/dL Alkaline Phosphatase (38-126) U/L Total Protein (6.3-8.2) g/dL Albumin (3.5-5.0) g/dL Crossmatch 02/09/21 02/09/21 02/09/21 Range/Units 21:10 22:23 23:04 WBC (3.8-10.6) k/uL RBC (4.30-5.90) m/uL Hgb (13.0-17.5) gm/dL Hct (39.0-53.0) % Plt Count (150-450) k/uL Neutrophils # (1.3-7.7) k/uL Lymphocytes # (1.0-4.8) k/uL PT (9.0-12.0) sec INR (<1.2) ABG pH (7.35-7.45) ABG pCO2 (35-45) mmHg ABG pO2 (83-108) mmHg ABG HCO3 (21-25) mmol/L ABG Total CO2 (19-24) mmol/L ABG O2 Saturation (94-97) % ABG Ionized Calcium (4.5-5.3) mg/dL Chloride (98-107) mmol/L Carbon Dioxide (22-30) mmol/L BUN (9-20) mg/dL Glucose (74-99) mg/dL POC Glucose (mg/dL) 134 H 132 H 142 H (75-99) mg/dL Alkaline Phosphatase (38-126) U/L Total Protein (6.3-8.2) g/dL Albumin (3.5-5.0) g/dL Crossmatch
[2021-02-10] MEDS ORDERED: INSULIN ASPART (NovoLOG) 100 UNIT/ML VIAL SQ SCH (12:30)
[2021-02-10 13:11] LABS: Glucose,Whole Blood 215 mg/dL (75-99)
[2021-02-10] MEDS: CLEVIDIPINE BUTYRATE 25 MG in EMPTY BAG 1 BAG IV SCH (13:35)
[2021-02-10 14:15] LABS: Glucose,Whole Blood 209 mg/dL (75-99)
[2021-02-10 15:10] LABS: Glucose,Whole Blood 167 mg/dL (75-99)
--- NOTE | 2021-02-10 15:27 | P.PN ---
Subjective Progress Note Date: 02/10/21 HISTORY OF PRESENT ILLNESS 70-year-old male one of my office patient known to me for many years with history of ulcerative colitis, recurrent kidney stone, hypertension, hyperlipi demia and type 2 diabetes on insulin with the blood to have recurrent sinus symptom of shortness of breath along with chest pain and tightness. Patient was scheduled for stress test originally his symptom becomes slightly worse was seen Dr. DEDE blum and decision to go for heart cath was done and shows three-vessel disease. Patient was seen Dr. Dhillon and scheduled for elective bypass surgery which was done successfully today patient was extubated in intensive care unit feeling well with no pain and hemodynamically stable. Blood sugar has been slightly but elevated patient was seen his neighbor Dr. Asha blum who started him on shorter acting insulin before meals meals plus continue glucose monitor was placed last week and showing his blood sugar running below 200. Patient also still on long acting insulin around 44 units daily along with Trulicity 1.5 mg injection a week. Patient had CVA in 2018 and the time had atypical arrhythmia with his recurrent blood clot and having more than 2 DVT along with arrhythmia was started on anticoagulation which patient has been on since. Apparently cardiology are planning to take him off anticoagulation completely and do coagulopathy study if need. With Dr. Dhillon patient had 4 vessel bypass which is ABBOTT to the LAD, vein graft ABBOTT to high diagonal, vein graft to PDA and SANDRA also patient had left atrial appendage with 35mm AtrialCure clip to reduce any type of thrombus from A. fib if it ever happened. Patient was transferred to the ICU as I mentioned shortly was extubated successfully doing well able to answer his question properly. Blood sugar is mildly elevated patient required 2 unit of insulin drip and hour to keep his blood sugar below 120. 02/10: Patient is seen today in the intensive care unit. Patient has gotten up to the bedside chair and is seen ambulating in the hallway with physical therapy. Patient states that this is the first time he has been up out of bed. He remains with one mediastinal and left pleural chest tubes in place with serosanguineous output. No air leak. Sodium 136, potassium 4.2, chloride 105, CO2 22, BUN 19 and creatinine 0.91. Blood sugars are running in the 120s to 160s. Repeat chest x-ray reveals REVIEW OF SYSTEMS Constitutional: No fever, no chills, no night sweats. No weight change. Mild weakness fatigue and lethargy following his surgery and extubation. EENT: No headache. No blurred vision or double vision, no loss of vision. No loss of Hearing, no ringing in the ears, no dizziness. No nasal drainage or congestion. No epistaxis. No sore throat. Lungs: Slight shortness of breath still have chest tube in no major cough and mild dyspnea. Cardiovascular: Positive chest pain from his incision from his surgery no lower extremity edema no PND or orthopnea still have slight dyspnea on and off no palpitation pulse rate is running well and no major change in blood pressure currently. Abdominal: No abdominal pain. No nausea, vomiting. No diarrhea. No constipation. No bloody or tarry stools.. No loss of appetite. Genitourinary: No dysuria, increased frequency, urgency. No urinary retention, still have catheter at this point. Musculoskeletal: No myalgias. No muscle weakness, no gait dysfunction, no frequent falls. No back pain. No neck pain. Integumentary: No wounds, no lesions. No rash or pruritus. No unusual bruising. No change in hair or nails. Neurologic: No aphasia. No facial droop. No change in mentation. No head injury. No headache. No paralysis. No paresthesia. Psychiatric: No depression. No anxiety. No mood swings. Endocrine: No abnormal blood sugars. No weight change. No excessive sweating or thirst. No cold intolerance. PHYSICAL EXAMINATION Gen: This is a well-developed 70-year-old male. Patient is resting in chair at the bedside and appears to be comfortable. Patient is observed ambulating in the hallway with physical therapy as well. HEENT: Head is atraumatic, normocephalic. Pupils equal, round. Sclerae is anicteric. NECK: Supple. No JVD. No lymphadenopathy. No thyromegaly. Standish-Kenyatta catheter in the right side. LUNGS: Decreased expansion bilaterally specially in the left side positive fine rhonchi with no crackles chest wall incision looks fine with 2 chest tube. HEART: Regular rate and rhythm. No murmur. ABDOMEN: Soft. Bowel sounds are present. No masses. No tenderness. EXTREMITIES: No pedal edema. No calf tenderness. Dorsalis pedis +[address] NEUROLOGICAL: Patient is awake, alert and oriented x3. Cranial nerves 2 through 12 are grossly intact. ASSESSMENT AND PLAN 1. CAD with multiple coronary artery disease post 4 vessel bypass surgery patient is doing well continue current management still in the ICU was extubated successfully he is not on any vasopressors at this point. 2 history of atrial fibrillation: Post AtrialCure clip doing well so far pulse rates under control with no sign of A. fib. 3 type 2 diabetes: Has been on insulin and Tradjenta along with fran Blackinue insulin drip transitioned to Levemir 20 g at bedtime, NovoLog 4 units scheduled before meals and at bedtime along with scale. 4 history of ulcerative colitis with multiple complication up till patient had subtotal colectomy and has been doing well since no sign of anemia or any active bleed. 5 history of hypertension: Has been on losartan 25 mg a day along with amlodipine 5 mg daily and Toprol-XL 50 mg a day we will start patient medication tomorrow. 6 BPH: Remain on Proscar and Flomax watch for any urinary retention. 7 hyperlipidemia: Remain on atorvastatin 40 mg a day. 8 chronic diarrhea: Patient had short bowel syndrome along with lifelong history of colitis has been on Lomotil on as-needed basis. 9 chronic history of iron deficiency anemia: Remain on iron supplement daily. 10 severe GERD: Resume omeprazole at 20 mg daily. 11 history of sleep apnea: Has been using CPAP. 12 GI prophylaxis: Remain on omeprazole. CODE STATUS: Full code. Dr. Dhillon thank you very much for the consult if I can be any further help to please let me know. Impression and plan of care have been directed as dictated by the signing physician. Azucena Goode nurse practitioner acting as scribe for signing physician. Objective - Vital Signs Vital signs: Vital Signs Temp 96.9 F L 02/09/21 06:10 Pulse 80 02/10/21 10:00 Resp 21 02/10/21 10:00 BP 114/71 02/10/21 07:00 Pulse Ox 98 02/10/21 10:00 Intake & Output 02/09/21 02/10/21 02/10/21 18:59 06:59 18:59 Intake Total 345.369 3158.906 265.138 Output Total 2215 948 270 Balance -1671.630 254.906 -4.862 Weight 88.1 kg 88.1 kg Intake: IV 518 888 147 .9 NS pressure bag 45 108 27 CO/CI 170 180 10 Lactated Ringers 1,000 ml 250 600 110 @ 20 mls/hr IV .Q24H KRISTIN Rx#:[id number] Intake, IV Titration 25.370 14.906 118.138 Amount Insulin Regular 100 unit 12.036 14.906 18.138 In Sodium Chloride 0.9% 100 ml @ Per Protocol IV .Q0M KRISTIN Rx#:[id number] Magnesium Sulfate-D5w Pmx 100 1 gm In Dextrose/Water 1 100ml.bag @ 100 mls/hr IVPB Q1H KRISTIN Rx#: [id number] propofoL 1,000 mg In 13.334 Empty Bag 1 bag @ Titrate IV .Q0M KRISTIN Rx#: [id number] Oral 300 Output: Chest Tube Drainage 210 305 180 Chest Tube Left Pleural/ 210 305 180 Mediastinal Drainage 60 Right Calf 60 Urine 1045 493 90 Stool 150 Estimated Blood Loss 900 Other: Voiding Method Indwelling Catheter Indwelling Catheter ABP, PAP, CO, CI - Last Documented Arterial Blood Pressure 102/49 Pulmonary Artery Pressure 20/5 Cardiac Output 6.5 Cardiac Index 3.2 - Labs CBC & Chem 7: 02/10/21 04:00 02/10/21 04:00 Labs: Abnormal Lab Results - Last 24 Hours (Table) 02/08/21 02/09/21 02/09/21 Range/Units 10:04 08:34 08:34 WBC (3.8-10.6) k/uL RBC (4.30-5.90) m/uL Hgb (13.0-17.5) gm/dL Hct (39.0-53.0) % Plt Count (150-450) k/uL Neutrophils # (1.3-7.7) k/uL Lymphocytes # (1.0-4.8) k/uL PT (9.0-12.0) sec INR (<1.2) ABG pH 7.28 L 7.28 L (7.35-7.45) ABG pCO2 (35-45) mmHg ABG pO2 364 H 364 H (83-108) mmHg ABG HCO3 19 L 19 L (21-25) mmol/L ABG Total CO2 (19-24) mmol/L ABG O2 Saturation 100.0 H 100.0 H (94-97) % ABG Ionized Calcium (4.5-5.3) mg/dL Sodium (137-145) mmol/L Chloride (98-107) mmol/L Carbon Dioxide (22-30) mmol/L BUN (9-20) mg/dL Glucose (74-99) mg/dL POC Glucose (mg/dL) (75-99) mg/dL Alkaline Phosphatase (38-126) U/L Total Protein (6.3-8.2) g/dL Albumin (3.5-5.0) g/dL Crossmatch See Detail 02/09/21 02/09/21 02/09/21 Range/Units 09:27 10:35 11:04 WBC (3.8-10.6) k/uL RBC (4.30-5.90) m/uL Hgb (13.0-17.5) gm/dL Hct (39.0-53.0) % Plt Count (150-450) k/uL Neutrophils # (1.3-7.7) k/uL Lymphocytes # (1.0-4.8) k/uL PT (9.0-12.0) sec INR (<1.2) ABG pH 7.30 L (7.35-7.45) ABG pCO2 (35-45) mmHg ABG pO2 119 H 110 H (83-108) mmHg ABG HCO3 (21-25) mmol/L ABG Total CO2 (19-24) mmol/L ABG O2 Saturation 98.8 H 98.3 H 98.8 H (94-97) % ABG Ionized Calcium 4.4 L (4.5-5.3) mg/dL Sodium (137-145) mmol/L Chloride (98-107) mmol/L Carbon Dioxide (22-30) mmol/L BUN (9-20) mg/dL Glucose (74-99) mg/dL POC Glucose (mg/dL) (75-99) mg/dL Alkaline Phosphatase (38-126) U/L Total Protein (6.3-8.2) g/dL Albumin (3.5-5.0) g/dL Crossmatch 02/09/21 02/09/21 02/09/21 Range/Units 11:36 12:33 13:41 WBC (3.8-10.6) k/uL RBC 3.19 L (4.30-5.90) m/uL Hgb 10.5 L D (13.0-17.5) gm/dL Hct 29.1 L (39.0-53.0) % Plt Count 102 L (150-450) k/uL Neutrophils # 8.5 H (1.3-7.7) k/uL Lymphocytes # (1.0-4.8) k/uL PT (9.0-12.0) sec INR (<1.2) ABG pH 7.33 L (7.35-7.45) ABG pCO2 (35-45) mmHg ABG pO2 112 H (83-108) mmHg ABG HCO3 20 L (21-25) mmol/L ABG Total CO2 (19-24) mmol/L ABG O2 Saturation 99.0 H 97.3 H (94-97) % ABG Ionized Calcium (4.5-5.3) mg/dL Sodium (137-145) mmol/L Chloride (98-107) mmol/L Carbon Dioxide (22-30) mmol/L BUN (9-20) mg/dL Glucose (74-99) mg/dL POC Glucose (mg/dL) (75-99) mg/dL Alkaline Phosphatase (38-126) U/L Total Protein (6.3-8.2) g/dL Albumin (3.5-5.0) g/dL Crossmatch 02/09/21 02/09/21 02/09/21 Range/Units 13:41 13:41 13:42 WBC (3.8-10.6) k/uL RBC (4.30-5.90) m/uL Hgb (13.0-17.5) gm/dL Hct (39.0-53.0) % Plt Count (150-450) k/uL Neutrophils # (1.3-7.7) k/uL Lymphocytes # (1.0-4.8) k/uL PT 12.5 H (9.0-12.0) sec INR 1.2 H (<1.2) ABG pH (7.35-7.45) ABG pCO2 (35-45) mmHg ABG pO2 (83-108) mmHg ABG HCO3 (21-25) mmol/L ABG Total CO2 (19-24) mmol/L ABG O2 Saturation (94-97) % ABG Ionized Calcium (4.5-5.3) mg/dL Sodium (137-145) mmol/L Chloride 109 H (98-107) mmol/L Carbon Dioxide 21 L (22-30) mmol/L BUN 27 H (9-20) mg/dL Glucose 128 H (74-99) mg/dL POC Glucose (mg/dL) 139 H (75-99) mg/dL Alkaline Phosphatase 36 L (38-126) U/L Total Protein 5.3 L (6.3-8.2) g/dL Albumin 3.4 L (3.5-5.0) g/dL Crossmatch 02/09/21 02/09/21 02/09/21 Range/Units 13:58 13:59 14:42 WBC (3.8-10.6) k/uL RBC (4.30-5.90) m/uL Hgb (13.0-17.5) gm/dL Hct (39.0-53.0) % Plt Count (150-450) k/uL Neutrophils # (1.3-7.7) k/uL Lymphocytes # (1.0-4.8) k/uL PT (9.0-12.0) sec INR (<1.2) ABG pH 7.30 L (7.35-7.45) ABG pCO2 48 H (35-45) mmHg ABG pO2 397 H (83-108) mmHg ABG HCO3 (21-25) mmol/L ABG Total CO2 25 H (19-24) mmol/L ABG O2 Saturation 99.9 H (94-97) % ABG Ionized Calcium (4.5-5.3) mg/dL Sodium (137-145) mmol/L Chloride (98-107) mmol/L Carbon Dioxide (22-30) mmol/L BUN (9-20) mg/dL Glucose (74-99) mg/dL POC Glucose (mg/dL) 157 H 175 H (75-99) mg/dL Alkaline Phosphatase (38-126) U/L Total Protein (6.3-8.2) g/dL Albumin (3.5-5.0) g/dL Crossmatch 0802/09/21 02/09/21 Range/Units 16:01 16:30 17:02 WBC 12.4 H (3.8-10.6) k/uL RBC 3.43 L (4.30-5.90) m/uL Hgb 11.1 L (13.0-17.5) gm/dL Hct 31.4 L (39.0-53.0) % Plt Count 133 L (150-450) k/uL Neutrophils # 10.6 H (1.3-7.7) k/uL Lymphocytes # 0.8 L (1.0-4.8) k/uL PT (9.0-12.0) sec INR (<1.2) ABG pH (7.35-7.45) ABG pCO2 (35-45) mmHg ABG pO2 (83-108) mmHg ABG HCO3 (21-25) mmol/L ABG Total CO2 (19-24) mmol/L ABG O2 Saturation (94-97) % ABG Ionized Calcium (4.5-5.3) mg/dL Sodium (137-145) mmol/L Chloride (98-107) mmol/L Carbon Dioxide (22-30) mmol/L BUN (9-20) mg/dL Glucose (74-99) mg/dL POC Glucose (mg/dL) 165 H 150 H (75-99) mg/dL Alkaline Phosphatase (38-126) U/L Total Protein (6.3-8.2) g/dL Albumin (3.5-5.0) g/dL Crossmatch 02/09/21 02/09/21 02/09/21 Range/Units 17:32 18:04 18:56 WBC (3.8-10.6) k/uL RBC (4.30-5.90) m/uL Hgb (13.0-17.5) gm/dL Hct (39.0-53.0) % Plt Count (150-450) k/uL Neutrophils # (1.3-7.7) k/uL Lymphocytes # (1.0-4.8) k/uL PT (9.0-12.0) sec INR (<1.2) ABG pH 7.33 L (7.35-7.45) ABG pCO2 (35-45) mmHg ABG pO2 170 H (83-108) mmHg ABG HCO3 (21-25) mmol/L ABG Total CO2 (19-24) mmol/L ABG O2 Saturation 99.6 H (94-97) % ABG Ionized Calcium (4.5-5.3) mg/dL Sodium (137-145) mmol/L Chloride (98-107) mmol/L Carbon Dioxide (22-30) mmol/L BUN (9-20) mg/dL Glucose (74-99) mg/dL POC Glucose (mg/dL) 138 H 139 H (75-99) mg/dL Alkaline Phosphatase (38-126) U/L Total Protein (6.3-8.2) g/dL Albumin (3.5-5.0) g/dL Crossmatch 02/09/21 02/09/21 02/09/21 Range/Units 19:58 20:03 21:10 WBC 11.9 H (3.8-10.6) k/uL RBC 3.51 L (4.30-5.90) m/uL Hgb 11.1 L (13.0-17.5) gm/dL Hct 33.1 L (39.0-53.0) % Plt Count 103 L (150-450) k/uL Neutrophils # 10.5 H (1.3-7.7) k/uL Lymphocytes # 0.5 L (1.0-4.8) k/uL PT (9.0-12.0) sec INR (<1.2) ABG pH (7.35-7.45) ABG pCO2 (35-45) mmHg ABG pO2 (83-108) mmHg ABG HCO3 (21-25) mmol/L ABG Total CO2 (19-24) mmol/L ABG O2 Saturation (94-97) % ABG Ionized Calcium (4.5-5.3) mg/dL Sodium (137-145) mmol/L Chloride (98-107) mmol/L Carbon Dioxide (22-30) mmol/L BUN (9-20) mg/dL Glucose (74-99) mg/dL POC Glucose (mg/dL) 135 H 134 H (75-99) mg/dL Alkaline Phosphatase (38-126) U/L Total Protein (6.3-8.2) g/dL Albumin (3.5-5.0) g/dL Crossmatch 02/09/21 02/09/21 02/10/21 Range/Units 22:23 23:04 00:25 WBC (3.8-10.6) k/uL RBC (4.30-5.90) m/uL Hgb (13.0-17.5) gm/dL Hct (39.0-53.0) % Plt Count (150-450) k/uL Neutrophils # (1.3-7.7) k/uL Lymphocytes # (1.0-4.8) k/uL PT (9.0-12.0) sec INR (<1.2) ABG pH (7.35-7.45) ABG pCO2 (35-45) mmHg ABG pO2 (83-108) mmHg ABG HCO3 (21-25) mmol/L ABG Total CO2 (19-24) mmol/L ABG O2 Saturation (94-97) % ABG Ionized Calcium (4.5-5.3) mg/dL Sodium (137-145) mmol/L Chloride (98-107) mmol/L Carbon Dioxide (22-30) mmol/L BUN (9-20) mg/dL Glucose (74-99) mg/dL POC Glucose (mg/dL) 132 H 142 H 126 H (75-99) mg/dL Alkaline Phosphatase (38-126) U/L Total Protein (6.3-8.2) g/dL Albumin (3.5-5.0) g/dL Crossmatch 02/10/21 02/10/21 02/10/21 Range/Units 01:04 02:06 03:16 WBC (3.8-10.6) k/uL RBC (4.30-5.90) m/uL Hgb (13.0-17.5) gm/dL Hct (39.0-53.0) % Plt Count (150-450) k/uL Neutrophils # (1.3-7.7) k/uL Lymphocytes # (1.0-4.8) k/uL PT (9.0-12.0) sec INR (<1.2) ABG pH (7.35-7.45) ABG pCO2 (35-45) mmHg ABG pO2 (83-108) mmHg ABG HCO3 (21-25) mmol/L ABG Total CO2 (19-24) mmol/L ABG O2 Saturation (94-97) % ABG Ionized Calcium (4.5-5.3) mg/dL Sodium (137-145) mmol/L Chloride (98-107) mmol/L Carbon Dioxide (22-30) mmol/L BUN (9-20) mg/dL Glucose (74-99) mg/dL POC Glucose (mg/dL) 120 H 123 H 121 H (75-99) mg/dL Alkaline Phosphatase (38-126) U/L Total Protein (6.3-8.2) g/dL Albumin (3.5-5.0) g/dL Crossmatch 02/10/21 02/10/21 02/10/21 Range/Units 04:00 04:00 04:08 WBC (3.8-10.6) k/uL RBC 3.21 L (4.30-5.90) m/uL Hgb 10.7 L (13.0-17.5) gm/dL Hct 30.3 L (39.0-53.0) % Plt Count 124 L (150-450) k/uL Neutrophils # 8.6 H (1.3-7.7) k/uL Lymphocytes # 0.7 L (1.0-4.8) k/uL PT (9.0-12.0) sec INR (<1.2) ABG pH (7.35-7.45) ABG pCO2 (35-45) mmHg ABG pO2 (83-108) mmHg ABG HCO3 (21-25) mmol/L ABG Total CO2 (19-24) mmol/L ABG O2 Saturation (94-97) % ABG Ionized Calcium (4.5-5.3) mg/dL Sodium 136 L (137-145) mmol/L Chloride (98-107) mmol/L Carbon Dioxide (22-30) mmol/L BUN (9-20) mg/dL Glucose 116 H (74-99) mg/dL POC Glucose (mg/dL) 121 H (75-99) mg/dL Alkaline Phosphatase 34 L (38-126) U/L Total Protein 5.3 L (6.3-8.2) g/dL Albumin 3.3 L (3.5-5.0) g/dL Crossmatch 02/10/21 02/10/21 02/10/21 Range/Units 05:10 07:12 08:13 WBC (3.8-10.6) k/uL RBC (4.30-5.90) m/uL Hgb (13.0-17.5) gm/dL Hct (39.0-53.0) % Plt Count (150-450) k/uL Neutrophils # (1.3-7.7) k/uL Lymphocytes # (1.0-4.8) k/uL PT (9.0-12.0) sec INR (<1.2) ABG pH (7.35-7.45) ABG pCO2 (35-45) mmHg ABG pO2 (83-108) mmHg ABG HCO3 (21-25) mmol/L ABG Total CO2 (19-24) mmol/L ABG O2 Saturation (94-97) % ABG Ionized Calcium (4.5-5.3) mg/dL Sodium (137-145) mmol/L Chloride (98-107) mmol/L Carbon Dioxide (22-30) mmol/L BUN (9-20) mg/dL Glucose (74-99) mg/dL POC Glucose (mg/dL) 127 H 145 H 200 H (75-99) mg/dL Alkaline Phosphatase (38-126) U/L Total Protein (6.3-8.2) g/dL Albumin (3.5-5.0) g/dL Crossmatch 02/10/21 02/10/21 Range/Units 09:26 10:05 WBC (3.8-10.6) k/uL RBC (4.30-5.90) m/uL Hgb (13.0-17.5) gm/dL Hct (39.0-53.0) % Plt Count (150-450) k/uL Neutrophils # (1.3-7.7) k/uL Lymphocytes # (1.0-4.8) k/uL PT (9.0-12.0) sec INR (<1.2) ABG pH (7.35-7.45) ABG pCO2 (35-45) mmHg ABG pO2 (83-108) mmHg ABG HCO3 (21-25) mmol/L ABG Total CO2 (19-24) mmol/L ABG O2 Saturation (94-97) % ABG Ionized Calcium (4.5-5.3) mg/dL Sodium (137-145) mmol/L Chloride (98-107) mmol/L Carbon Dioxide (22-30) mmol/L BUN (9-20) mg/dL Glucose (74-99) mg/dL POC Glucose (mg/dL) 156 H 137 H (75-99) mg/dL Alkaline Phosphatase (38-126) U/L Total Protein (6.3-8.2) g/dL Albumin (3.5-5.0) g/dL Crossmatch
[2021-02-10 16:06] LABS: Glucose,Whole Blood 180 mg/dL (75-99)
[2021-02-10 17:12] LABS: Glucose,Whole Blood 205 mg/dL (75-99)
[2021-02-10 18:08] LABS: Glucose,Whole Blood 193 mg/dL (75-99)
[2021-02-10 19:10] LABS: Glucose,Whole Blood 158 mg/dL (75-99)
[2021-02-10] MEDS ORDERED: METOPROLOL TARTRATE 25 MG TAB PO SCH (21:00)
[2021-02-10] MEDS ORDERED: SENNOSIDES-DOCUSATE SODIUM 1 EACH TAB PO SCH (21:00)
[2021-02-10] MEDS ORDERED: INSULIN DETEMIR (LEVEMIR) 100 UNIT/ML SYR SQ SCH (21:00)
[2021-02-10 21:01] LABS: Glucose,Whole Blood 206 mg/dL (75-99)
[2021-02-10] MEDS: TAMSULOSIN 0.4 MG CAP.ER.24H PO SCH (22:03)
[2021-02-10] MEDS: ATORVASTATIN 40 MG TAB PO SCH (22:03)
[2021-02-10] MEDS: FERROUS SULFATE 325 MG TAB PO SCH (22:03)
[2021-02-10 22:15] LABS: Glucose,Whole Blood 276 mg/dL (75-99)
[2021-02-10] MEDS: INSULIN ASPART (NovoLOG) 100 UNIT/ML VIAL SQ SCH ×2 (22:22)
[2021-02-11] MEDS: HEPARIN SODIUM,PORCINE/PF 5,000 UNIT/0.5 ML SYRINGE SQ SCH (00:33)
[2021-02-11] MEDS: KETOROLAC 15 MG/ML 1 ML VIAL IVP SCH (00:33)
[2021-02-11] MEDS: HYDROcodone/APAP 5-325MG 1 EACH TAB PO PRN (03:27)
[2021-02-11 05:18] LABS: HCT 20.3 % (39.0-53.0); MCH 33.6 pg (25.0-35.0); MCHC 35.6 g/dL (31.0-37.0); MCV 94.3 fL (80.0-100.0); Mean Platelet Volume 11.4; Poikilocytosis Slight; RBC 2.16 m/uL (4.30-5.90); RDW 14.8 % (11.5-15.5); WBC 5.7 k/uL (3.8-10.6)
[2021-02-11 05:19] LABS: HGB 7.2 gm/dL (13.0-17.5)
[2021-02-11 05:41] LABS: Band Neutrophils % 2 %; Eosinophils # (M) 0.17 k/uL (0-0.7); Lymphocytes # (M) 0.51 k/uL (1.0-4.8); Monocytes # (M) 0.57 k/uL (0-1.0); Neutrophils % (M) 76 %; Nucleated Red Blood Cells 0 /100 WBC (0-0); Total Cells Counted 100
[2021-02-11 05:42] LABS: Platelet Count 68 k/uL (150-450)
[2021-02-11 06:04] LABS: Albumin 3.2 g/dL (3.5-5.0); Calcium 8.3 mg/dL (8.4-10.2); Magnesium 2.1 mg/dL (1.6-2.3); Total Bilirubin 0.4 mg/dL (0.2-1.3)
[2021-02-11 06:30] LABS: HGB 7.6 gm/dL (13.0-17.5); MCH 32.5 pg (25.0-35.0); MCHC 34.4 g/dL (31.0-37.0); MCV 94.4 fL (80.0-100.0); Mean Platelet Volume 11.7; RBC 2.33 m/uL (4.30-5.90); RDW 14.1 % (11.5-15.5)
[2021-02-11 06:32] LABS: Platelet Count 70 k/uL (150-450)
[2021-02-11] MEDS ORDERED: SENNOSIDES-DOCUSATE SODIUM 1 EACH TAB PO PRN (06:50)
[2021-02-11 07:20] LABS: Glucose,Whole Blood 186 mg/dL (75-99)
[2021-02-11] MEDS: INSULIN ASPART (NovoLOG) 100 UNIT/ML VIAL SQ SCH ×8 (07:28→20:42)
[2021-02-11] MEDS: IPRATROPIUM-ALBUTEROL 3 ML NEB INHALATION SCH ×4 (07:40→19:03)
[2021-02-11] MEDS: CLOPIDOGREL 75 MG TAB PO SCH ×2 (08:16→15:59)
--- NOTE | 2021-02-11 08:16 | XR ---
EXAMINATION TYPE: XR chest 1V portable DATE OF EXAM: 02/11/2021 COMPARISON: Chest x-ray 02/10/2021 HISTORY: Chest tube, postop cardiac surgery TECHNIQUE: Single frontal view of the chest is obtained. FINDINGS: Left-sided chest tube, median sternal drain remain in place, patient is post median sterno asad and left atrial appendage clip placement. The right jugular central venous catheter has been rem ward, sheath remains in place. There is no evident pneumothorax. There are overlying artifacts. Cardi ac mediastinal silhouette shows a similar appearance. There is some mild prominence and central vascu larity and interstitium, patchy bibasilar density again noted. IMPRESSION: Correlate for interstitial edema, subsegmental basilar atelectatic changes.
[2021-02-11] MEDS: CHOLECALCIFEROL 25 MCG (1000 IU) TABLET PO SCH (08:20)
[2021-02-11] MEDS: ASCORBIC ACID 500 MG TAB PO SCH (08:20)
[2021-02-11] MEDS: ASPIRIN 81 MG PO SCH (08:20)
[2021-02-11] MEDS: MULTIVITAMINS, THERA 1 EACH TAB PO SCH (08:20)
[2021-02-11] MEDS: METOPROLOL TARTRATE 25 MG TAB PO SCH ×3 (08:21→20:41)
[2021-02-11] MEDS: DULoxetine HCL 30 MG CAPSULE.DR PO SCH (08:21)
[2021-02-11] MEDS: FINASTERIDE 5 MG TAB PO SCH (08:21)
[2021-02-11] MEDS: FONDAPARINUX 2.5 MG/0.5 ML SYRINGE SQ SCH (08:27)
[2021-02-11] MEDS: PANTOPRAZOLE 40 MG/10 ML VIAL IVP SCH (08:27)
--- NOTE | 2021-02-11 08:28 | P.PN ---
Subjective Progress Note Date: 02/11/21 Principal diagnosis: Coronary artery disease with left main disease. Previous medical history of hypertension, hyperlipidemia, insulin-dependent diabetes, CVA in 2015 and 2018 without residual deficits, previous tobacco dependence, obstructive sleep apnea with home CPAP use, history of GI bleed, ulcerative colitis with colectomy and ileostomy pouch placement, remote history of pneumonia, preoperative thrombocytopenia, and family history of premature coronary artery disease. Vaccinated against coated with Moderna vaccine POD #2 off-pump coronary artery bypass graft 4 with left internal mammary artery to the left anterior descending artery, reverse saphenous vein graft from the left internal mammary artery to the high diagonal, sequential vein graft to the PDA and SANDRA. Epi-aortic ultrasound. Ligation of the left atrial appendage with a 35 mm AtriCure clip. Endovascular vein harvest of the right greater saphenous vein from the mid calf to the groin Postoperative acute blood loss anemia and thrombocytopenia, expected given the hemodilution and preoperative thrombocytopenia The patient's currently sitting up in a recliner in the intensive care unit in no acute distress eating breakfast. States pain is controlled on current medication regimen, denies shortness of breath. Currently in normal sinus rhythm to sinus tach, systolic blood pressure has been a bit on the low side but mean pressure has been adequate, on no inotropes or pressors. Attempting in centive spirometry use but only achieving 750 mL. Oxygenating in the mid 90s on 3 L nasal cannula. Right internal jugular Cordis, right radial arterial line, mediastinal and left pleural chest tubes all remain. Urine output adequate. Hemoglobin 7.6 this morning was 10.7 yesterday, platelet count 70,000, was 1 24,000 yesterday. Patient has no evidence of acute bleed. He did get several IV albumin boluses and was given IV Toradol yesterday for better pain control. He did ambulate in the hallway yesterday with assistance by physical therapy, denies any weakness or dizziness. Objective - Vital Signs Vital signs: Vital Signs Temp 36.5 F L 02/11/21 04:00 Pulse 92 02/11/21 06:00 Resp 20 02/11/21 06:00 BP 101/58 02/11/21 06:00 Pulse Ox 96 02/11/21 06:00 Intake & Output 02/10/21 02/11/21 02/11/21 18:59 06:59 18:59 Intake Total 1337.758 558.893 Output Total 730 1000 Balance 607.758 -441.107 Weight 88.1 kg 89.7 kg Intake: IV 1184 432 .9 NS pressure bag 84 72 Albumin Human 5% 250 ml 750 In Empty Bag 1 bag @ 250 mls/hr IVPB Q1HR PRN Rx#: [id number] CO/CI 10 Lactated Ringers 1,000 ml 340 360 @ 20 mls/hr IV .Q24H KRISTIN Rx#:[id number] Intake, IV Titration 153.758 6.893 Amount Insulin Regular 100 unit 53.758 6.893 In Sodium Chloride 0.9% 100 ml @ Per Protocol IV .Q0M KRISTIN Rx#:[id number] Magnesium Sulfate-D5w Pmx 100 1 gm In Dextrose/Water 1 100ml.bag @ 100 mls/hr IVPB Q1H KRISTIN Rx#: [id number] Oral 120 Output: Chest Tube Drainage 300 180 Chest Tube Left Pleural/ 300 180 Mediastinal Drainage 80 Right Calf 80 Urine 430 740 Other: Voiding Method Indwelling Catheter Indwelling Catheter ABP, PAP, CO, CI - Last Documented Arterial Blood Pressure 116/53 Pulmonary Artery Pressure 20/5 Cardiac Output 6.5 Cardiac Index 3.2 - Exam CONSTITUTIONAL: Appears comfortable, cooperative, no acute distress RESPIRATORY: Lungs sounds diminished bilaterally. Respirations even, nonlabored. Currently on 3 L nasal cannula with oxygen saturation 95%. Able to achieve 750 mL on incentive spirometry. Strong cough. CARDIOVASCULAR: S1, S2 present. Regular rate and rhythm, sinus rhythm to sinus tach on telemetry with heart rate in the high 90s to low 100s. Sternum stable. Palpable peripheral pulses bilaterally. No edema present. No calf pain or tenderness noted. Heart hugger in place with patient demonstrating appropriate use. Antiembolism stockings, SCDs present. GASTROINTESTINAL: Abdomen soft, nontender, nondistended. Active bowel sounds present 4 quadrants. Tolerating clear liquid diet. Positive stool in right sided ileostomy. GENITOURINARY: Melvin present draining clear, yellow urine. Output overnight 35-75 mL per hour, 1170 mL in the last 24 hours INTEGUMENTARY: Skin is warm and dry with evidence of good perfusion. Anterior chest incision well approximated and covered with dry intact dressing. Right lower extremity EVH site well approximated NEUROLOGIC: Cranial nerves II through XII intact MUSKULOSKELETAL: Able to move all extremities, strength equal bilaterally PSYCHIATRIC: Alert and oriented to person place and time, appropriate affect, intact judgment and insight INVASIVE LINES AND TUBES: Mediastinal/left pleural chest tubes present and connected to wall suction, intermittent air leak was present yesterday but no longer present, 120 mL serosanguineous drainage overnight, 300 mL in the last 24 hours. Right internal jugular cordis, right radial arterial line present. CVP 8-10. - Allied health notes Allied health notes reviewed: nursing - Labs CBC & Chem 7: 02/11/21 11:53 02/11/21 04:40 Labs: Abnormal Lab Results - Last 24 Hours (Table) 02/10/21 02/10/21 02/10/21 Range/Units 08:13 09:26 10:05 RBC (4.30-5.90) m/uL Hgb (13.0-17.5) gm/dL Hct (39.0-53.0) % Plt Count (150-450) k/uL Lymphocytes # (Manual) (1.0-4.8) k/uL Sodium (137-145) mmol/L BUN (9-20) mg/dL Glucose (74-99) mg/dL POC Glucose (mg/dL) 200 H 156 H 137 H (75-99) mg/dL Calcium (8.4-10.2) mg/dL Alkaline Phosphatase (38-126) U/L Total Protein (6.3-8.2) g/dL Albumin (3.5-5.0) g/dL 02/10/21 02/10/21 02/10/21 Range/Units 11:37 13:09 14:12 RBC (4.30-5.90) m/uL Hgb (13.0-17.5) gm/dL Hct (39.0-53.0) % Plt Count (150-450) k/uL Lymphocytes # (Manual) (1.0-4.8) k/uL Sodium (137-145) mmol/L BUN (9-20) mg/dL Glucose (74-99) mg/dL POC Glucose (mg/dL) 122 H 215 H 209 H (75-99) mg/dL Calcium (8.4-10.2) mg/dL Alkaline Phosphatase (38-126) U/L Total Protein (6.3-8.2) g/dL Albumin (3.5-5.0) g/dL 02/10/21 02/10/21 02/10/21 Range/Units 15:08 16:03 17:10 RBC (4.30-5.90) m/uL Hgb (13.0-17.5) gm/dL Hct (39.0-53.0) % Plt Count (150-450) k/uL Lymphocytes # (Manual) (1.0-4.8) k/uL Sodium (137-145) mmol/L BUN (9-20) mg/dL Glucose (74-99) mg/dL POC Glucose (mg/dL) 167 H 180 H 205 H (75-99) mg/dL Calcium (8.4-10.2) mg/dL Alkaline Phosphatase (38-126) U/L Total Protein (6.3-8.2) g/dL Albumin (3.5-5.0) g/dL 02/10/21 02/10/21 02/10/21 Range/Units 18:06 19:08 20:58 RBC (4.30-5.90) m/uL Hgb (13.0-17.5) gm/dL Hct (39.0-53.0) % Plt Count (150-450) k/uL Lymphocytes # (Manual) (1.0-4.8) k/uL Sodium (137-145) mmol/L BUN (9-20) mg/dL Glucose (74-99) mg/dL POC Glucose (mg/dL) 193 H 158 H 206 H (75-99) mg/dL Calcium (8.4-10.2) mg/dL Alkaline Phosphatase (38-126) U/L Total Protein (6.3-8.2) g/dL Albumin (3.5-5.0) g/dL 02/10/21 02/11/21 02/11/21 Range/Units 22:14 04:40 04:40 RBC 2.16 L (4.30-5.90) m/uL Hgb 7.2 L D (13.0-17.5) gm/dL Hct 20.3 L (39.0-53.0) % Plt Count 68 L (150-450) k/uL Lymphocytes # (Manual) 0.51 L (1.0-4.8) k/uL Sodium 131 L (137-145) mmol/L BUN 22 H (9-20) mg/dL Glucose 157 H (74-99) mg/dL POC Glucose (mg/dL) 276 H (75-99) mg/dL Calcium 8.3 L (8.4-10.2) mg/dL Alkaline Phosphatase 32 L (38-126) U/L Total Protein 5.0 L (6.3-8.2) g/dL Albumin 3.2 L (3.5-5.0) g/dL 02/11/21 02/11/21 Range/Units 06:12 07:19 RBC 2.33 L (4.30-5.90) m/uL Hgb 7.6 L (13.0-17.5) gm/dL Hct 22.0 L (39.0-53.0) % Plt Count 70 L (150-450) k/uL Lymphocytes # (Manual) (1.0-4.8) k/uL Sodium (137-145) mmol/L BUN (9-20) mg/dL Glucose (74-99) mg/dL POC Glucose (mg/dL) 186 H (75-99) mg/dL Calcium (8.4-10.2) mg/dL Alkaline Phosphatase (38-126) U/L Total Protein (6.3-8.2) g/dL Albumin (3.5-5.0) g/dL - Imaging and Cardiology Chest x-ray: image reviewed Assessment and Plan Assessment: 1. Coronary artery disease with left main disease, status post off-pump three- vessel CABG 2. History of hypertension 3. Hyperlipidemia, treated, cholesterol 83, LDL 8 4. Insulin-dependent diabetes, uncontrolled with hyperglycemia, preop hemoglobin A1c 8.6% 5. CVA in 2015 and 2018 without residual deficits 6. Previous tobacco dependence, preoperative FEV1 89% of predicted 7. Ostructive sleep apnea with home CPAP use 8. History of GI bleed 9. Ulcerative colitis with colectomy and ileostomy pouch placement 10. Remote history of pneumonia 11. Preoperative thrombocytopenia 12. Family history of premature coronary artery disease. 13. Postoperative acute blood loss anemia and thrombocytopenia, expected Plan: 1. Continue low-dose aspirin, statin, Plavix, beta oscar therapy. Will increase beta oscar as tolerated. 2. Wean O2 as tolerated. Encourage incentive spirometry 10 times every hour while awake. Bronchodilators per pulmonology 3. Increase activity, ambulate as tolerated. PT/OT/cardiac rehab consulted 4. Will monitor daily labs and x-rays. Electrolyte replacement per protocol. No transfusion today. Monitor for signs of active bleed 5. GI/DVT prophylaxis, will discontinue subcu heparin, Arixtra ordered. HIT panel ordered. Continue Protonix IV twice a day 6. Pain control with current medication regimen. Toradol discontinued 7. Insulin management per primary care service. Patient needs tight blood sugar control to promote sternal union and prevent infection 8. Continue Cordis to continuous CVP monitoring 9. Will discontinue chest tubes 10. Discontinue Melvin catheter. May bladder scan and straight cath for greater then 300 mL residual 11. Strict accurate intake and output. Daily weights 12. More recommendations to follow Time with Patient: Greater than 30
--- NOTE | 2021-02-11 08:48 | P.PN ---
Subjective Progress Note Date: 02/11/21 Principal diagnosis: This is a very pleasant 70-year-old gentleman who was admitted to the hospital and underwent elective CABG 4 with ABBOTT to LAD and vein graft to diagonal and a lso vein graft to PDA and PLV. This is postoperative elevation day #2. The patient remains hemodynamically stable. His hemoglobin dropped 3 g but still above 7. His platelets also dropped down. For that reason I will suggest holding the Plavix at this point. Hit to be ruled out. The patient clinically is looking good. The chest x-ray was reviewed and showed small left pleural effusion. He is maintaining normal sinus mechanism. Objective - Vital Signs Vital signs: Vital Signs Temp 36.5 F L 02/11/21 04:00 Pulse 92 02/11/21 06:00 Resp 20 02/11/21 06:00 BP 101/58 02/11/21 06:00 Pulse Ox 96 02/11/21 06:00 Intake & Output 02/10/21 02/11/21 02/11/21 18:59 06:59 18:59 Intake Total 1337.758 558.893 Output Total 730 1000 Balance 607.758 -441.107 Weight 88.1 kg 89.7 kg Intake: IV 1184 432 .9 NS pressure bag 84 72 Albumin Human 5% 250 ml 750 In Empty Bag 1 bag @ 250 mls/hr IVPB Q1HR PRN Rx#: [id number] CO/CI 10 Lactated Ringers 1,000 ml 340 360 @ 20 mls/hr IV .Q24H KRISTIN Rx#:[id number] Intake, IV Titration 153.758 6.893 Amount Insulin Regular 100 unit 53.758 6.893 In Sodium Chloride 0.9% 100 ml @ Per Protocol IV .Q0M KRISTIN Rx#:[id number] Magnesium Sulfate-D5w Pmx 100 1 gm In Dextrose/Water 1 100ml.bag @ 100 mls/hr IVPB Q1H KRISTIN Rx#: [id number] Oral 120 Output: Chest Tube Drainage 300 180 Chest Tube Left Pleural/ 300 180 Mediastinal Drainage 80 Right Calf 80 Urine 430 740 Other: Voiding Method Indwelling Catheter Indwelling Catheter ABP, PAP, CO, CI - Last Documented Arterial Blood Pressure 116/53 Pulmonary Artery Pressure 20/5 Cardiac Output 6.5 Cardiac Index 3.2 - Constitutional General appearance: Present: no acute distress - Respiratory Respiratory: bilateral: CTA - Cardiovascular Rhythm: regular Heart sounds: normal: S1, S2 - Labs CBC & Chem 7: 02/11/21 06:12 02/11/21 04:40 Labs: Abnormal Lab Results - Last 24 Hours (Table) 02/10/21 02/10/21 02/10/21 Range/Units 09:26 10:05 11:37 RBC (4.30-5.90) m/uL Hgb (13.0-17.5) gm/dL Hct (39.0-53.0) % Plt Count (150-450) k/uL Lymphocytes # (Manual) (1.0-4.8) k/uL Sodium (137-145) mmol/L BUN (9-20) mg/dL Glucose (74-99) mg/dL POC Glucose (mg/dL) 156 H 137 H 122 H (75-99) mg/dL Calcium (8.4-10.2) mg/dL Alkaline Phosphatase (38-126) U/L Total Protein (6.3-8.2) g/dL Albumin (3.5-5.0) g/dL 02/10/21 02/10/21 02/10/21 Range/Units 13:09 14:12 15:08 RBC (4.30-5.90) m/uL Hgb (13.0-17.5) gm/dL Hct (39.0-53.0) % Plt Count (150-450) k/uL Lymphocytes # (Manual) (1.0-4.8) k/uL Sodium (137-145) mmol/L BUN (9-20) mg/dL Glucose (74-99) mg/dL POC Glucose (mg/dL) 215 H 209 H 167 H (75-99) mg/dL Calcium (8.4-10.2) mg/dL Alkaline Phosphatase (38-126) U/L Total Protein (6.3-8.2) g/dL Albumin (3.5-5.0) g/dL 02/10/21 02/10/21 02/10/21 Range/Units 16:03 17:10 18:06 RBC (4.30-5.90) m/uL Hgb (13.0-17.5) gm/dL Hct (39.0-53.0) % Plt Count (150-450) k/uL Lymphocytes # (Manual) (1.0-4.8) k/uL Sodium (137-145) mmol/L BUN (9-20) mg/dL Glucose (74-99) mg/dL POC Glucose (mg/dL) 180 H 205 H 193 H (75-99) mg/dL Calcium (8.4-10.2) mg/dL Alkaline Phosphatase (38-126) U/L Total Protein (6.3-8.2) g/dL Albumin (3.5-5.0) g/dL 02/10/21 02/10/21 02/10/21 Range/Units 19:08 20:58 22:14 RBC (4.30-5.90) m/uL Hgb (13.0-17.5) gm/dL Hct (39.0-53.0) % Plt Count (150-450) k/uL Lymphocytes # (Manual) (1.0-4.8) k/uL Sodium (137-145) mmol/L BUN (9-20) mg/dL Glucose (74-99) mg/dL POC Glucose (mg/dL) 158 H 206 H 276 H (75-99) mg/dL Calcium (8.4-10.2) mg/dL Alkaline Phosphatase (38-126) U/L Total Protein (6.3-8.2) g/dL Albumin (3.5-5.0) g/dL 02/11/21 02/11/21 02/11/21 Range/Units 04:40 04:40 06:12 RBC 2.16 L 2.33 L (4.30-5.90) m/uL Hgb 7.2 L D 7.6 L (13.0-17.5) gm/dL Hct 20.3 L 22.0 L (39.0-53.0) % Plt Count 68 L 70 L (150-450) k/uL Lymphocytes # (Manual) 0.51 L (1.0-4.8) k/uL Sodium 131 L (137-145) mmol/L BUN 22 H (9-20) mg/dL Glucose 157 H (74-99) mg/dL POC Glucose (mg/dL) (75-99) mg/dL Calcium 8.3 L (8.4-10.2) mg/dL Alkaline Phosphatase 32 L (38-126) U/L Total Protein 5.0 L (6.3-8.2) g/dL Albumin 3.2 L (3.5-5.0) g/dL 02/11/21 Range/Units 07:19 RBC (4.30-5.90) m/uL Hgb (13.0-17.5) gm/dL Hct (39.0-53.0) % Plt Count (150-450) k/uL Lymphocytes # (Manual) (1.0-4.8) k/uL Sodium (137-145) mmol/L BUN (9-20) mg/dL Glucose (74-99) mg/dL POC Glucose (mg/dL) 186 H (75-99) mg/dL Calcium (8.4-10.2) mg/dL Alkaline Phosphatase (38-126) U/L Total Protein (6.3-8.2) g/dL Albumin (3.5-5.0) g/dL Assessment and Plan Assessment: Assessment #1 coronary artery disease and status post CABG #2 multiple comorbid conditions including diabetes and hypertension and dyslip idemia #3 history of CVA Plan #1 continue the current medical regimen #2 I will suggest holding the Plavix at this point #3 continue monitoring the hemoglobin #4 blood transfusion if the hemoglobin drop below 7 #5 follow-up with the patient
--- NOTE | 2021-02-11 10:30 | P.PN ---
Subjective Progress Note Date: 02/11/21 Principal diagnosis: CAD, status post off-pump CABG This is a 70-year-old white male of Dr. Bautista, with past medical history of hypertension, hyperlipidemia, diabetes mellitus2 on insulin, ulcerative colitis with history of colectomy and ileostomy placement, obstructive sleep apnea on home CPAP, family history of early onset coronary artery disease, history of 2 previous CVA in 2015 and 2018, with residual left-sided weakness. Patient was recently hospitalized when she came in for evaluation cough with fatigue, shortness of breath, and diaphoresis. Patient had a cardiac catheterization on 02/03/2021 which demonstrated a 60-70% stenosis of his left main coronary artery, 80% stenosis to his mid LAD, 40% stenosis to his proximal LAD, 80% stenosis to his PLV branch of the right coronary artery. Outpatient echocardiogram showed severe hypokinesia of the mid to distal anterior septal wall and adjoining apex with an ejection fraction of 40% and moderate concentric LVH. Patient was referred to cardiothoracic surgery for surgical intervention. FEV1 was completed showing a predicted value of 89% of predicted with a volume of 2.61 L. On 02/09/2021. Patient underwent off-pump CABG 4 with ABBOTT to the LAD, vein graft ABBOTT to high diagonal, sequential vein graft to PDA and SANDRA, appendectomy aortic ultrasound, and ligation of the left atrial appendage with a 35 mm AtriCure clip. Postoperative chest x-ray showed endotracheal tube, NG tube, left chest, right IJ Cordis, Anthony-Kenyatta catheter, and mediastinal chest tube in appropriate position. Subsegmental basilar atelectatic changes were present, there was no sizable pneumothorax or pleural effusion. Postoperative blood gas showed pO2 of 397, pCO2 40, and pH 7.30. Stop her blood work has been reviewed, Levoxyl, was 10.5, hemoglobin is 10.5, INR is 1.2, sodium is 138, potassium is 4.2, chloride is 109, CO2 is 21, BUN is 27, creatinine 0.95. Hemodynamically patient has been stable. He was successfully weaned and extubated within 5 hours of OR exit time. This morning he seen in intensive care unit. He is awake and alert, oriented 3, he sitting up in a recliner, he is on 2 L of oxygen pulse ox of 97%, he is on lactated Ringer's at 30 mL an hour, insulin infusion is at 4 units per hour, no other drips. Hemodynamically he is stable, in sinus mechanism with a rate of 89. His PEEP pressure is 20 o ti 4. CVP is 1, he received 15% albumin. Cardiac output is 4.6 and cardiac index is 2.2. He is breathing comfortably, he is working on her incentive spirometer, 1 mediastinal and left pleural chest tube connected together, with a total of 600 mL of thin serosanguineous output since surgery. No air leak. Today's chest x-ray shows interval extubation, and probable atelectasis. Today's blood work was reviewed, hemoglobin is 10.7, white blood cell count is 10.3, electrolytes and renal profile were unremarkable. On 02/11/2021 patient seen in follow-up in intensive care unit, today is postop erative day #2, status post off-pump CABG 4. Patient is doing well, sitting up in the recliner, he is on 3 L of oxygen, breathing comfortably socks is 98%. He is working on incentive spirometer, there is no other drips other than lactated Ringer's at 30 ML per hour, hemodynamically patient is stable, he is in sinus mechanism the rate is controlled. PA catheter was removed. He still has medias tinal and left pleural chest tube in place, with 480 mL of thin serosanguineous output in the last 24 hours. No evidence of air leak, today's chest x-ray showing interstitial edema, subsegmental basilar atelectatic changes. Patient denies any pain, denies any complaints. Midsternal incision, chest tube sites, right lower leg saphenous venous graft incision site clean dry and intact. His labs have been reviewed, we'll globin is 7.6, platelet count is 70. Sodium is 131, depressive electrolytes are within normal limits, BUN is 22, and creatinine is 1.23. Objective - Vital Signs Vital signs: Vital Signs Temp 36.5 F L 02/11/21 04:00 Pulse 91 02/11/21 10:00 Resp 22 02/11/21 10:00 BP 91/64 02/11/21 10:00 Pulse Ox 97 02/11/21 10:00 Intake & Output 09/01/21 09/02/21 09/02/21 18:59 06:59 18:59 Intake Total 1337.758 558.893 344 Output Total 730 1000 530 Balance 607.758 -441.107 -186 Weight 88.1 kg 89.7 kg Intake: IV 1184 432 144 .9 NS pressure bag 84 72 24 Albumin Human 5% 250 ml 750 In Empty Bag 1 bag @ 250 mls/hr IVPB Q1HR PRN Rx#: [id number] CO/CI 10 Lactated Ringers 1,000 ml 340 360 120 @ 20 mls/hr IV .Q24H KRISTIN Rx#:[id number] Intake, IV Titration 153.758 6.893 Amount Insulin Regular 100 unit 53.758 6.893 In Sodium Chloride 0.9% 100 ml @ Per Protocol IV .Q0M KRISTIN Rx#:[id number] Magnesium Sulfate-D5w Pmx 100 1 gm In Dextrose/Water 1 100ml.bag @ 100 mls/hr IVPB Q1H KRISTIN Rx#: [id number] Oral 120 200 Output: Chest Tube Drainage 300 180 Chest Tube Left Pleural/ 300 180 Mediastinal Drainage 80 Right Calf 80 Urine 430 740 180 Stool 350 Other: Voiding Method Indwelling Catheter Indwelling Catheter Indwelling Catheter ABP, PAP, CO, CI - Last Documented Arterial Blood Pressure 116/53 Pulmonary Artery Pressure 20/5 Cardiac Output 6.5 Cardiac Index 3.2 - Exam GENERAL EXAM: Alert, very pleasant, 70-year-old white male, sitting up in the recliner, on 3 L oxygen pulse ox of 97% comfortable in no apparent distress. HEAD: Normocephalic/atraumatic. EYES: Normal reaction of pupils, equal size. Conjunctiva pink, sclera white. NOSE: Clear with pink turbinates. THROAT: No erythema or exudates. NECK: No masses, no JVD, no thyroid enlargement, no adenopathy. Right IJ Cordis and Anthony-Kenyatta catheter present CHEST: No chest wall deformity. Symmetrical expansion. Midsternal incision is clean dry and intact, 1 pleural and one mediastinal chest tubes connected together, with total of 600 mL of thin sero-sanguineous output in the Pleur- evac. Chest tubes connected to suction, there is no evidence of air leak. LUNGS: Equal air entry with no crackles, wheeze, rhonchi or dullness. CVS: Regular rate and rhythm, normal S1 and S2, no gallops, no murmurs, no rubs ABDOMEN: Soft, nontender. No hepatosplenomegaly, normal bowel sounds, no guarding or rigidity. EXTREMITIES: No clubbing, no edema, no cyanosis, 2+ pulses and upper and lower extremities. he has SCDs on bilateral lower extremities MUSCULOSKELETAL: Muscle strength and tone normal. SPINE: No scoliosis or deformity SKIN: No rashes, right lower leg incision is clean dry and intact CENTRAL NERVOUS SYSTEM: Alert and oriented -3. No focal deficits, tone is normal in all 4 extremities. PSYCHIATRIC: Alert and oriented -3. Appropriate affect. Intact judgment and insight. - Labs CBC & Chem 7: 02/11/21 06:12 02/11/21 04:40 Labs: Abnormal Lab Results - Last 24 Hours (Table) 02/10/21 02/10/21 02/10/21 Range/Units 11:37 13:09 14:12 RBC (4.30-5.90) m/uL Hgb (13.0-17.5) gm/dL Hct (39.0-53.0) % Plt Count (150-450) k/uL Lymphocytes # (Manual) (1.0-4.8) k/uL Sodium (137-145) mmol/L BUN (9-20) mg/dL Glucose (74-99) mg/dL POC Glucose (mg/dL) 122 H 215 H 209 H (75-99) mg/dL Calcium (8.4-10.2) mg/dL Alkaline Phosphatase (38-126) U/L Total Protein (6.3-8.2) g/dL Albumin (3.5-5.0) g/dL 02/10/21 02/10/21 02/10/21 Range/Units 15:08 16:03 17:10 RBC (4.30-5.90) m/uL Hgb (13.0-17.5) gm/dL Hct (39.0-53.0) % Plt Count (150-450) k/uL Lymphocytes # (Manual) (1.0-4.8) k/uL Sodium (137-145) mmol/L BUN (9-20) mg/dL Glucose (74-99) mg/dL POC Glucose (mg/dL) 167 H 180 H 205 H (75-99) mg/dL Calcium (8.4-10.2) mg/dL Alkaline Phosphatase (38-126) U/L Total Protein (6.3-8.2) g/dL Albumin (3.5-5.0) g/dL 02/10/21 02/10/21 02/10/21 Range/Units 18:06 19:08 20:58 RBC (4.30-5.90) m/uL Hgb (13.0-17.5) gm/dL Hct (39.0-53.0) % Plt Count (150-450) k/uL Lymphocytes # (Manual) (1.0-4.8) k/uL Sodium (137-145) mmol/L BUN (9-20) mg/dL Glucose (74-99) mg/dL POC Glucose (mg/dL) 193 H 158 H 206 H (75-99) mg/dL Calcium (8.4-10.2) mg/dL Alkaline Phosphatase (38-126) U/L Total Protein (6.3-8.2) g/dL Albumin (3.5-5.0) g/dL 02/10/21 02/11/21 02/11/21 Range/Units 22:14 04:40 04:40 RBC 2.16 L (4.30-5.90) m/uL Hgb 7.2 L D (13.0-17.5) gm/dL Hct 20.3 L (39.0-53.0) % Plt Count 68 L (150-450) k/uL Lymphocytes # (Manual) 0.51 L (1.0-4.8) k/uL Sodium 131 L (137-145) mmol/L BUN 22 H (9-20) mg/dL Glucose 157 H (74-99) mg/dL POC Glucose (mg/dL) 276 H (75-99) mg/dL Calcium 8.3 L (8.4-10.2) mg/dL Alkaline Phosphatase 32 L (38-126) U/L Total Protein 5.0 L (6.3-8.2) g/dL Albumin 3.2 L (3.5-5.0) g/dL 02/11/21 02/11/21 Range/Units 06:12 07:19 RBC 2.33 L (4.30-5.90) m/uL Hgb 7.6 L (13.0-17.5) gm/dL Hct 22.0 L (39.0-53.0) % Plt Count 70 L (150-450) k/uL Lymphocytes # (Manual) (1.0-4.8) k/uL Sodium (137-145) mmol/L BUN (9-20) mg/dL Glucose (74-99) mg/dL POC Glucose (mg/dL) 186 H (75-99) mg/dL Calcium (8.4-10.2) mg/dL Alkaline Phosphatase (38-126) U/L Total Protein (6.3-8.2) g/dL Albumin (3.5-5.0) g/dL Assessment and Plan Plan: Assessment: #1. Coronary artery disease, symptomatic, status post off-pump CABG 4, with the ABBOTT to LAD, vein graft ABBOTT to high diagonal, sequential vein graft to PDA and SANDRA. Ligation of the left atrial appendage with a 35 mm AtriCure clip on 02/09/2021 #2. Routine postop ventilator management, patient was successfully weaned and extubated on postoperative day #0, on 02/09/2021 within 5 hours of OR exit time #3. Hypertension #4. Hyperlipidemia #5. Diabetes mellitus type 2 #6. Family history of early onset coronary artery disease #7. Previous history of CVA 2 with residual left-sided weakness and balance issues #8. Ulcerative colitis, with history of bowel resection and ileostomy on 03/19/2018 #9. Obstructive sleep apnea on home CPAP #10. Former smoker, with preop FEV1 value of 2.61 L #11. Osteoarthritis Plan: This morning's chest x-ray has been reviewed showing subsegmental basilar atelectasis Encourage deep breathing and coughing Incentive spirometry use Hemodynamically stable Increase activity as tolerated No acute issues overnight We'll continue to follow I performed a history & physical examination of the patient and discussed their management with my nurse practitioner, Pamela Dumont. I reviewed the nurse practitioner's note and agree with the documented findings and plan of care. Lung sounds are positive for clear breath sounds throughout the lung galo. The findings and the impression was discussed with the patient. I attest to the documentation by the nurse practitioner. Time with Patient: Less than 30
[2021-02-11] MEDS: ACETAMINOPHEN TAB 325 MG TAB PO PRN ×2 (11:05→15:48)
[2021-02-11 11:48] LABS: Glucose,Whole Blood 211 mg/dL (75-99)
[2021-02-11] MEDS: LACTATED RINGERS 1,000 ML IV SCH (12:12)
--- NOTE | 2021-02-11 12:30 | P.PN ---
Subjective Progress Note Date: 02/11/21 HISTORY OF PRESENT ILLNESS 70-year-old male one of my office patient known to me for many years with history of ulcerative colitis, recurrent kidney stone, hypertension, hyperlipi demia and type 2 diabetes on insulin with the blood to have recurrent sinus symptom of shortness of breath along with chest pain and tightness. Patient was scheduled for stress test originally his symptom becomes slightly worse was seen Dr. DEDE blum and decision to go for heart cath was done and shows three-vessel disease. Patient was seen Dr. Dhillon and scheduled for elective bypass surgery which was done successfully today patient was extubated in intensive care unit feeling well with no pain and hemodynamically stable. Blood sugar has been slightly but elevated patient was seen his neighbor Dr. Asha blum who started him on shorter acting insulin before meals meals plus continue glucose monitor was placed last week and showing his blood sugar running below 200. Patient also still on long acting insulin around 44 units daily along with Trulicity 1.5 mg injection a week. Patient had CVA in 2018 and the time had atypical arrhythmia with his recurrent blood clot and having more than 2 DVT along with arrhythmia was started on anticoagulation which patient has been on since. Apparently cardiology are planning to take him off anticoagulation completely and do coagulopathy study if need. With Dr. Dhillon patient had 4 vessel bypass which is ABBOTT to the LAD, vein graft ABBOTT to high diagonal, vein graft to PDA and SANDRA also patient had left atrial appendage with 35mm AtrialCure clip to reduce any type of thrombus from A. fib if it ever happened. Patient was transferred to the ICU as I mentioned shortly was extubated successfully doing well able to answer his question properly. Blood sugar is mildly elevated patient required 2 unit of insulin drip and hour to keep his blood sugar below 120. 02/10: Patient is seen today in the intensive care unit. Patient has gotten up to the bedside chair and is seen ambulating in the hallway with physical therapy. Patient states that this is the first time he has been up out of bed. He remains with one mediastinal and left pleural chest tubes in place with serosanguineous output. No air leak. Sodium 136, potassium 4.2, chloride 105, CO2 22, BUN 19 and creatinine 0.91. Blood sugars are running in the 120s to 160s. Repeat chest x-ray reveals 02/11: Patient remains in the intensive care unit, chest tubes are in place, he is seen today sitting up in a recliner and appears to be comfortable. Blood sugars are on the higher side and Levemir will be increased to 25 units at bedtime. Repeat chest x-ray reveals considered for interstitial edema, subsegmental basilar atelectatic changes. Cardiology is suggesting holding Plavix at this time due to hemoglobin drop. Repeat blood work reveals hemoglobin 7.6, platelet count 70, wbc's 6. Sodium 131, potassium 4, chloride 102, CO2 23, BUN 22 and creatinine 1.23. Blood sugars are running between 157 and 276. Liver function tests are normal. REVIEW OF SYSTEMS Constitutional: No fever, no chills, no night sweats. No weight change. Mild weakness fatigue and lethargy following his surgery and extubation. EENT: No headache. No blurred vision or double vision, no loss of vision. No loss of Hearing, no ringing in the ears, no dizziness. No nasal drainage or congestion. No epistaxis. No sore throat. Lungs: Slight shortness of breath still have chest tube in no major cough and mild dyspnea. Cardiovascular: Positive chest pain from his incision from his surgery no lower extremity edema no PND or orthopnea still have slight dyspnea on and off no palpitation pulse rate is running well and no major change in blood pressure currently. Abdominal: No abdominal pain. No nausea, vomiting. No diarrhea. No constipation. No bloody or tarry stools.. No loss of appetite. Genitourinary: No dysuria, increased frequency, urgency. No urinary retention, still have catheter at this point. Musculoskeletal: No myalgias. No muscle weakness, no gait dysfunction, no frequent falls. No back pain. No neck pain. Integumentary: Surgical wounds, no lesions. No rash or pruritus. No unusual bruising. No change in hair or nails. Neurologic: No aphasia. No facial droop. No change in mentation. No head injury. No headache. No paralysis. No paresthesia. Psychiatric: No depression. No anxiety. No mood swings. Endocrine: No abnormal blood sugars. No weight change. No excessive sweating or thirst. No cold intolerance. PHYSICAL EXAMINATION Gen: This is a well-developed 70-year-old male. Patient is resting in chair at the bedside and appears to be comfortable. HEENT: Head is atraumatic, normocephalic. Pupils equal, round. Sclerae is anicteric. NECK: Supple. No JVD. No lymphadenopathy. No thyromegaly. LUNGS: Decreased expansion bilaterally specially in the left side positive fine rhonchi with no crackles chest wall incision looks fine with 2 chest tube. HEART: Regular rate and rhythm. No murmur. ABDOMEN: Soft. Bowel sounds are present. No masses. No tenderness. EXTREMITIES: No pedal edema. No calf tenderness. Dorsalis pedis +[address] NEUROLOGICAL: Patient is awake, alert and oriented x3. Cranial nerves 2 through 12 are grossly intact. ASSESSMENT AND PLAN 1. CAD with multiple coronary artery disease post 4 vessel bypass surgery patient is doing well continue current management still in the ICU was extubated successfully. 2 history of atrial fibrillation: Post AtrialCure clip doing well so far pulse rates under control with no sign of A. fib. 3 type 2 diabetes: Has been on insulin and Tradjenta along with Trulicity, con tinue Levemir increased to 25 units at bedtime, continue NovoLog 4 units scheduled before meals and at bedtime along with scale. 4 history of ulcerative colitis with multiple complication up till patient had subtotal colectomy and has been doing well since no sign of anemia or any active bleed. 5 history of hypertension. Continue Lopressor 25 mg every 12 hours. 6 BPH: Remain on Proscar and Flomax watch for any urinary retention. 7 hyperlipidemia: Remain on atorvastatin 40 mg a day. 8 chronic diarrhea: Patient had short bowel syndrome along with lifelong history of colitis has been on Lomotil on as-needed basis. 9 chronic history of iron deficiency anemia: Remain on iron supplement daily. 10 severe GERD: Resume omeprazole at 20 mg daily. 11 history of sleep apnea: Has been using CPAP. 12 GI prophylaxis: Remain on omeprazole. CODE STATUS: Full code. Dr. Dhillon thank you very much for the consult if I can be any further help to please let me know. DISCHARGE PLAN tbd Impression and plan of care have been directed as dictated by the signing physician. Azucena Goode nurse practitioner acting as scribe for signing physician. Objective - Vital Signs Vital signs: Vital Signs Temp 97.9 F 02/11/21 08:00 Pulse 90 02/11/21 11:04 Resp 28 H 02/11/21 11:04 BP 100/62 02/11/21 11:04 Pulse Ox 96 02/11/21 11:04 Intake & Output 02/10/21 02/11/21 02/11/21 18:59 06:59 18:59 Intake Total 1337.758 558.893 580 Output Total 730 1000 650 Balance 607.758 -441.107 -70 Weight 88.1 kg 89.7 kg Intake: IV 1184 432 180 .9 NS pressure bag 84 72 30 Albumin Human 5% 250 ml 750 In Empty Bag 1 bag @ 250 mls/hr IVPB Q1HR PRN Rx#: [id number] CO/CI 10 Lactated Ringers 1,000 ml 340 360 150 @ 20 mls/hr IV .Q24H KRISTIN Rx#:[id number] Intake, IV Titration 153.758 6.893 Amount Insulin Regular 100 unit 53.758 6.893 In Sodium Chloride 0.9% 100 ml @ Per Protocol IV .Q0M KRISTIN Rx#:[id number] Magnesium Sulfate-D5w Pmx 100 1 gm In Dextrose/Water 1 100ml.bag @ 100 mls/hr IVPB Q1H KRISTIN Rx#: [id number] Oral 120 400 Output: Chest Tube Drainage 300 180 60 Chest Tube Left Pleural/ 300 180 60 Mediastinal Drainage 80 Right Calf 80 Urine 430 740 240 Stool 350 Other: Voiding Method Indwelling Catheter Indwelling Catheter Indwelling Catheter ABP, PAP, CO, CI - Last Documented Arterial Blood Pressure 110/49 Pulmonary Artery Pressure 20/5 Cardiac Output 6.5 Cardiac Index 3.2 - Labs CBC & Chem 7: 02/11/21 06:12 02/11/21 04:40 Labs: Abnormal Lab Results - Last 24 Hours (Table) 02/10/21 02/10/21 02/10/21 Range/Units 13:09 14:12 15:08 RBC (4.30-5.90) m/uL Hgb (13.0-17.5) gm/dL Hct (39.0-53.0) % Plt Count (150-450) k/uL Lymphocytes # (Manual) (1.0-4.8) k/uL Sodium (137-145) mmol/L BUN (9-20) mg/dL Glucose (74-99) mg/dL POC Glucose (mg/dL) 215 H 209 H 167 H (75-99) mg/dL Calcium (8.4-10.2) mg/dL Alkaline Phosphatase (38-126) U/L Total Protein (6.3-8.2) g/dL Albumin (3.5-5.0) g/dL 02/10/21 02/10/21 02/10/21 Range/Units 16:03 17:10 18:06 RBC (4.30-5.90) m/uL Hgb (13.0-17.5) gm/dL Hct (39.0-53.0) % Plt Count (150-450) k/uL Lymphocytes # (Manual) (1.0-4.8) k/uL Sodium (137-145) mmol/L BUN (9-20) mg/dL Glucose (74-99) mg/dL POC Glucose (mg/dL) 180 H 205 H 193 H (75-99) mg/dL Calcium (8.4-10.2) mg/dL Alkaline Phosphatase (38-126) U/L Total Protein (6.3-8.2) g/dL Albumin (3.5-5.0) g/dL 02/10/21 02/10/21 02/10/21 Range/Units 19:08 20:58 22:14 RBC (4.30-5.90) m/uL Hgb (13.0-17.5) gm/dL Hct (39.0-53.0) % Plt Count (150-450) k/uL Lymphocytes # (Manual) (1.0-4.8) k/uL Sodium (137-145) mmol/L BUN (9-20) mg/dL Glucose (74-99) mg/dL POC Glucose (mg/dL) 158 H 206 H 276 H (75-99) mg/dL Calcium (8.4-10.2) mg/dL Alkaline Phosphatase (38-126) U/L Total Protein (6.3-8.2) g/dL Albumin (3.5-5.0) g/dL 02/11/21 02/11/21 02/11/21 Range/Units 04:40 04:40 06:12 RBC 2.16 L 2.33 L (4.30-5.90) m/uL Hgb 7.2 L D 7.6 L (13.0-17.5) gm/dL Hct 20.3 L 22.0 L (39.0-53.0) % Plt Count 68 L 70 L (150-450) k/uL Lymphocytes # (Manual) 0.51 L (1.0-4.8) k/uL Sodium 131 L (137-145) mmol/L BUN 22 H (9-20) mg/dL Glucose 157 H (74-99) mg/dL POC Glucose (mg/dL) (75-99) mg/dL Calcium 8.3 L (8.4-10.2) mg/dL Alkaline Phosphatase 32 L (38-126) U/L Total Protein 5.0 L (6.3-8.2) g/dL Albumin 3.2 L (3.5-5.0) g/dL 02/11/21 Range/Units 07:19 RBC (4.30-5.90) m/uL Hgb (13.0-17.5) gm/dL Hct (39.0-53.0) % Plt Count (150-450) k/uL Lymphocytes # (Manual) (1.0-4.8) k/uL Sodium (137-145) mmol/L BUN (9-20) mg/dL Glucose (74-99) mg/dL POC Glucose (mg/dL) 186 H (75-99) mg/dL Calcium (8.4-10.2) mg/dL Alkaline Phosphatase (38-126) U/L Total Protein (6.3-8.2) g/dL Albumin (3.5-5.0) g/dL
[2021-02-11 12:46] LABS: HCT 21.6 % (39.0-53.0); HGB 7.5 gm/dL (13.0-17.5); MCH 32.6 pg (25.0-35.0); MCHC 34.7 g/dL (31.0-37.0); MCV 94.1 fL (80.0-100.0); Mean Platelet Volume 11.5; RDW 14.3 % (11.5-15.5); WBC 6.8 k/uL (3.8-10.6)
[2021-02-11 14:21] LABS: Platelet Count 87 k/uL (150-450)
[2021-02-11] MEDS: SODIUM FERRIC GLUCONAT-SUCROSE 125 MG in SODIUM CHLORIDE 0.9% 100 ML IVPB SCH (15:48)
[2021-02-11 16:52] LABS: Glucose,Whole Blood 218 mg/dL (75-99)
[2021-02-11] MEDS: PANTOPRAZOLE 40 MG TABLET PO SCH (17:25)
[2021-02-11 20:38] LABS: Glucose,Whole Blood 261 mg/dL (75-99)
[2021-02-11] MEDS: TAMSULOSIN 0.4 MG CAP.ER.24H PO SCH (20:41)
[2021-02-11] MEDS: ATORVASTATIN 40 MG TAB PO SCH (20:41)
[2021-02-11] MEDS: FERROUS SULFATE 325 MG TAB PO SCH (20:41)
[2021-02-11] MEDS ORDERED: INSULIN DETEMIR (LEVEMIR) 100 UNIT/ML SYR SQ SCH (21:00)
[2021-02-12 04:11] LABS: Basophils % (A) 0 %; Eosinophils # (A) 0.1 k/uL (0-0.7); Eosinophils % (A) 1 %; HGB 7.3 gm/dL (13.0-17.5); Hypochromasia Slight; Lymphocytes # (A) 0.7 k/uL (1.0-4.8); Lymphocytes % (A) 10 %; MCH 33.2 pg (25.0-35.0); MCHC 34.8 g/dL (31.0-37.0); MCV 95.5 fL (80.0-100.0); Mean Platelet Volume 11.2; Monocytes # (A) 0.6 k/uL (0-1.0); Monocytes % (A) 8 %; Neutrophils # (A) 5.5 k/uL (1.3-7.7); Neutrophils % (A) 78 %; Poikilocytosis Moderate; RDW 15.3 % (11.5-15.5); WBC 7.1 k/uL (3.8-10.6)
[2021-02-12 04:15] LABS: Platelet Count 81 k/uL (150-450)
[2021-02-12 04:29] LABS: Albumin 3.2 g/dL (3.5-5.0); Calcium 8.9 mg/dL (8.4-10.2); Potassium 4.4 mmol/L (3.5-5.1); Total Bilirubin 0.6 mg/dL (0.2-1.3); Total Protein 5.3 g/dL (6.3-8.2)
[2021-02-12 06:09] LABS: Glucose,Whole Blood 176 mg/dL (75-99)
[2021-02-12] MEDS: INSULIN ASPART (NovoLOG) 100 UNIT/ML VIAL SQ SCH ×8 (06:18→20:33)
[2021-02-12] MEDS: PANTOPRAZOLE 40 MG TABLET PO SCH ×2 (06:18→18:07)
[2021-02-12] MEDS ORDERED: MELATONIN 5 MG TABLET PO PRN (07:09)
--- NOTE | 2021-02-12 07:21 | P.PN ---
Subjective Progress Note Date: 02/12/21 Principal diagnosis: Coronary artery disease with left main disease. Previous medical history of hypertension, hyperlipidemia, insulin-dependent diabetes, CVA in 2015 and 2018 without residual deficits, previous tobacco dependence, obstructive sleep apnea with home CPAP use, history of GI bleed, ulcerative colitis with colectomy and ileostomy pouch placement, remote history of pneumonia, preoperative thrombocytopenia, and family history of premature coronary artery disease. Vaccinated against coated with Moderna vaccine POD #3 off-pump coronary artery bypass graft 4 with left internal mammary artery to the left anterior descending artery, reverse saphenous vein graft from the left internal mammary artery to the high diagonal, sequential vein graft to the PDA and SANDRA. Epi-aortic ultrasound. Ligation of the left atrial appendage with a 35 mm AtriCure clip. Endovascular vein harvest of the right greater saphenous vein from the mid calf to the groin Postoperative acute blood loss anemia and thrombocytopenia, expected given the hemodilution and preoperative thrombocytopenia The patient's currently sitting up in a recliner in the intensive care unit in no acute distress. States pain is controlled on current medication regimen, has taken no narcotics in >24 hours, denies shortness of breath. Does complain of being tired this morning, states he didn't sleep well last night. Currently in normal sinus rhythm to sinus tach, systolic blood pressure continues to be on the low side but mean pressure have been adequate, on no inotropes or pressors. Attempting incentive spirometry use but only achieving 750 mL. Oxygenating in the mid 90s on 2 L nasal cannula. Right internal jugular Cordis, right radial arterial line remain. Urine output adequate, voiding after hall removal yesterday. Hemaglobin 7.3, platelet 81,000, HIT panel pending. IV iron x [address] Gaitan. He has ambulated in the hallway several times with assistance, denies any weakness or dizziness. Objective - Vital Signs Vital signs: Vital Signs Temp 98.5 F 02/12/21 04:00 Pulse 111 H 02/12/21 06:00 Resp 15 02/12/21 06:00 BP 85/69 02/12/21 06:00 Pulse Ox 95 02/12/21 06:00 Intake & Output 02/11/21 02/12/21 02/12/21 18:59 06:59 18:59 Intake Total 1182 682 Output Total 1025 1490 Balance 157 -808 Weight 90.5 kg Intake: IV 432 432 .9 NS pressure bag 72 72 Lactated Ringers 1,000 ml 360 360 @ 20 mls/hr IV .Q[facility]H [facility] Rx#:[id number] Oral 750 250 Output: Chest Tube Drainage 60 Chest Tube Left Pleural/ 60 Mediastinal Urine 615 1090 Stool 350 400 Other: Voiding Method Indwelling Catheter Urinal # Voids 0 ABP, PAP, CO, CI - Last Documented Arterial Blood Pressure 108/77 Pulmonary Artery Pressure 20/5 Cardiac Output 6.5 Cardiac Index 3.2 - Exam CONSTITUTIONAL: Appears comfortable, cooperative, no acute distress RESPIRATORY: Lungs sounds diminished bilaterally. Respirations even, nonlabored. Currently on 2 L nasal cannula with oxygen saturation 95%. Able to achieve 750 mL on incentive spirometry. Strong cough. CARDIOVASCULAR: S1, S2 present. Regular rate and rhythm, sinus rhythm to sinus tach on telemetry with heart rate in the high 90s to low 100s. Sternum stable. Palpable peripheral pulses bilaterally. Trace right lower extremity edema present. No calf pain or tenderness noted. Heart hugger in place with patient demonstrating appropriate use. Antiembolism stockings, SCDs present. GASTROINTESTINAL: Abdomen soft, nontender, nondistended. Active bowel sounds present 4 quadrants. Tolerating diet. Positive stool in right sided ileostomy, 400 mL overnight. GENITOURINARY: Hall discontinued yesterday, patient has been voiding 200-500 mL at a time. Output 1705 mL in the last 24 hours INTEGUMENTARY: Skin is warm and dry with evidence of good perfusion. Anterior chest incision well approximated and covered with dry intact dressing. Right lower extremity EVH site well approximated, very eccymotic and sore proximal medial thigh, outlined and josh wrapped NEUROLOGIC: Cranial nerves II through XII intact MUSKULOSKELETAL: Able to move all extremities, strength equal bilaterally PSYCHIATRIC: Alert and oriented to person place and time, appropriate affect, intact judgment and insight INVASIVE LINES AND TUBES: Right internal jugular cordis, right radial arterial line present. - Allied health notes Allied health notes reviewed: nursing - Labs CBC & Chem 7: 02/12/21 03:27 02/12/21 03:27 Labs: Abnormal Lab Results - Last 24 Hours (Table) 02/11/21 02/11/21 02/11/21 Range/Units 07:19 11:46 11:53 RBC 2.30 L (4.30-5.90) m/uL Hgb 7.5 L (13.0-17.5) gm/dL Hct 21.6 L (39.0-53.0) % Plt Count 87 L (150-450) k/uL Lymphocytes # (1.0-4.8) k/uL Sodium (137-145) mmol/L Glucose (74-99) mg/dL POC Glucose (mg/dL) 186 H 211 H (75-99) mg/dL Total Protein (6.3-8.2) g/dL Albumin (3.5-5.0) g/dL 02/11/21 02/11/21 02/12/21 Range/Units 16:50 20:36 03:27 RBC 2.20 L (4.30-5.90) m/uL Hgb 7.3 L (13.0-17.5) gm/dL Hct 21.0 L (39.0-53.0) % Plt Count 81 L (150-450) k/uL Lymphocytes # 0.7 L (1.0-4.8) k/uL Sodium (137-145) mmol/L Glucose (74-99) mg/dL POC Glucose (mg/dL) 218 H 261 H (75-99) mg/dL Total Protein (6.3-8.2) g/dL Albumin (3.5-5.0) g/dL 02/12/21 02/12/21 Range/Units 03:27 06:07 RBC (4.30-5.90) m/uL Hgb (13.0-17.5) gm/dL Hct (39.0-53.0) % Plt Count (150-450) k/uL Lymphocytes # (1.0-4.8) k/uL Sodium 132 L (137-145) mmol/L Glucose 149 H (74-99) mg/dL POC Glucose (mg/dL) 176 H (75-99) mg/dL Total Protein 5.3 L (6.3-8.2) g/dL Albumin 3.2 L (3.5-5.0) g/dL - Imaging and Cardiology Chest x-ray: image reviewed Assessment and Plan Assessment: 1. Coronary artery disease with left main disease, status post off-pump three-vessel CABG 2. History of hypertension 3. Hyperlipidemia, treated, cholesterol 83, LDL 8 4. Insulin-dependent diabetes, uncontrolled with hyperglycemia, preop hemoglobin A1c 8.6% 5. CVA in 2015 and 2018 without residual deficits 6. Previous tobacco dependence, preoperative FEV1 89% of predicted 7. Ostructive sleep apnea with home CPAP use 8. History of GI bleed 9. Ulcerative colitis with colectomy and ileostomy pouch placement 10. Remote history of pneumonia 11. Preoperative thrombocytopenia 12. Family history of premature coronary artery disease. 13. Postoperative acute blood loss anemia and thrombocytopenia, expected Plan: 1. Continue low-dose aspirin, statin, Plavix, beta oscar therapy. Will increase beta oscar as tolerated, increased to 50 mg BID today 2. Wean O2 as tolerated. Encourage incentive spirometry 10 times every hour while awake. Bronchodilators per pulmonology 3. Increase activity, ambulate as tolerated. PT/OT/cardiac rehab following 4. Will monitor daily labs and x-rays. Electrolyte replacement per protocol. No transfusion today. 5. GI/DVT prophylaxis. HIT panel pending. Continue Protonix IV twice a day 6. Pain control with current medication regimen. Narcotics discontinued 7. Insulin management per primary care service. Patient needs tight blood sugar control to promote sternal union and prevent infection 8. Will discontinue cordis, arterial line 9. Keep right lower extremity josh-wrapped, may use heat packs, monitor eccymosis 10. Strict accurate intake and output. Daily weights 11. Will place transfer orders for [address] [place] [address] cardiac step down unit. May transfer when bed available 12. Discharge planning in progress. Anticipate discharge to home with home care soon 13. More recommendations to follow Time with Patient: Greater than 30
[2021-02-12] MEDS: IPRATROPIUM-ALBUTEROL 3 ML NEB INHALATION SCH ×4 (07:37→19:50)
--- NOTE | 2021-02-12 07:41 | P.PN ---
Subjective Progress Note Date: 02/12/21 Principal diagnosis: Coronary artery disease and status post CABG This is a very pleasant 70-year-old gentleman who was admitted to the hospital and underwent elective CABG 4 with ABBOTT to LAD and vein graft to diagonal and also vein graft to PDA and PLV. This is postoperative patient day #3. The platelets are slightly lower. HIT antibody sent yesterday. Otherwise clinically he is stable and not on any vasopressors. He continues to be on dual antiplatelet therapy. He is on a statin as well. He is also on beta oscar. The chest x-ray was reviewed and showed left pleural effusion. He is feeling slightly tired today compared to yesterday. Objective - Vital Signs Vital signs: Vital Signs Temp 98.5 F 02/12/21 04:00 Pulse 96 02/12/21 07:00 Resp 26 H 02/12/21 07:00 BP 104/67 02/12/21 07:00 Pulse Ox 95 02/12/21 07:36 Intake & Output 02/11/21 02/12/21 02/12/21 18:59 06:59 18:59 Intake Total 1182 682 36 Output Total 1025 1490 0 Balance 157 -808 36 Weight 90.5 kg Intake: IV 432 432 36 .9 NS pressure bag 72 72 6 Lactated Ringers 1,000 ml 360 360 30 @ 20 mls/hr IV .Q24H [facility] Rx#:[id number] Oral 750 250 Output: Chest Tube Drainage 60 Chest Tube Left Pleural/ 60 Mediastinal Urine 615 1090 0 Stool 350 400 Other: Voiding Method Indwelling Catheter Urinal # Voids 0 0 ABP, PAP, CO, CI - Last Documented Arterial Blood Pressure 101/42 Pulmonary Artery Pressure 20/5 Cardiac Output 6.5 Cardiac Index 3.2 - Constitutional General appearance: Present: no acute distress - Respiratory Respiratory: bilateral: diminished - Cardiovascular Rhythm: regular Heart sounds: normal: S1, S2 - Labs CBC & Chem 7: 02/12/21 03:27 02/12/21 03:27 Labs: Abnormal Lab Results - Last 24 Hours (Table) 02/11/21 02/11/21 02/11/21 Range/Units 11:46 11:53 16:50 RBC 2.30 L (4.30-5.90) m/uL Hgb 7.5 L (13.0-17.5) gm/dL Hct 21.6 L (39.0-53.0) % Plt Count 87 L (150-450) k/uL Lymphocytes # (1.0-4.8) k/uL Sodium (137-145) mmol/L Glucose (74-99) mg/dL POC Glucose (mg/dL) 211 H 218 H (75-99) mg/dL Total Protein (6.3-8.2) g/dL Albumin (3.5-5.0) g/dL 02/11/21 02/12/21 02/12/21 Range/Units 20:36 03:27 03:27 RBC 2.20 L (4.30-5.90) m/uL Hgb 7.3 L (13.0-17.5) gm/dL Hct 21.0 L (39.0-53.0) % Plt Count 81 L (150-450) k/uL Lymphocytes # 0.7 L (1.0-4.8) k/uL Sodium 132 L (137-145) mmol/L Glucose 149 H (74-99) mg/dL POC Glucose (mg/dL) 261 H (75-99) mg/dL Total Protein 5.3 L (6.3-8.2) g/dL Albumin 3.2 L (3.5-5.0) g/dL 02/12/21 Range/Units 06:07 RBC (4.30-5.90) m/uL Hgb (13.0-17.5) gm/dL Hct (39.0-53.0) % Plt Count (150-450) k/uL Lymphocytes # (1.0-4.8) k/uL Sodium (137-145) mmol/L Glucose (74-99) mg/dL POC Glucose (mg/dL) 176 H (75-99) mg/dL Total Protein (6.3-8.2) g/dL Albumin (3.5-5.0) g/dL Assessment and Plan Assessment: Assessment #1 coronary artery disease and status post CABG #2 multiple comorbid conditions including diabetes and hypertension and dyslipidemia #3 history of CVA Plan #1 continue the current medical regimen #2 continue monitor the platelet as well as hemoglobin #3 consider blood transfusion the hemoglobin drop below 7 #4 follow-up with the patient
--- NOTE | 2021-02-12 08:37 | XR ---
EXAMINATION TYPE: XR chest 1V portable DATE OF EXAM: 02/12/2021 COMPARISON: Chest x-ray 02/11/2021 HISTORY: Status post cardiac surgery, chest tube removal TECHNIQUE: Single frontal view of the chest is obtained. FINDINGS: Left-sided chest tube has been removed in the interval. There is no evident pneumothorax. Postop changes are again noted. There are overlying artifacts. Probable subsegmental basilar atelecta tic changes are noted, cardiomediastinal silhouette shows no significant change accounting for differ ences in technique. Central venous sheath remains in place in the right jugular location. Median ster nal drain is no longer seen. IMPRESSION: No evident complication status post chest tubes removed
[2021-02-12] MEDS: ASCORBIC ACID 500 MG TAB PO SCH (09:13)
[2021-02-12] MEDS: METOPROLOL TARTRATE 50 MG TAB PO SCH ×2 (09:13→20:32)
[2021-02-12] MEDS: ASPIRIN 81 MG PO SCH (09:13)
[2021-02-12] MEDS: SODIUM FERRIC GLUCONAT-SUCROSE 125 MG in SODIUM CHLORIDE 0.9% 100 ML IVPB SCH (09:13)
[2021-02-12] MEDS: FINASTERIDE 5 MG TAB PO SCH (09:14)
[2021-02-12] MEDS: DULoxetine HCL 30 MG CAPSULE.DR PO SCH (09:14)
[2021-02-12] MEDS: FONDAPARINUX 2.5 MG/0.5 ML SYRINGE SQ SCH (09:14)
[2021-02-12] MEDS: CHOLECALCIFEROL 25 MCG (1000 IU) TABLET PO SCH (09:19)
[2021-02-12] MEDS: MULTIVITAMINS, THERA 1 EACH TAB PO SCH (09:19)
[2021-02-12] MEDS: CLOPIDOGREL 75 MG TAB PO SCH (09:19)
--- NOTE | 2021-02-12 10:57 | P.PN ---
Subjective Progress Note Date: 02/12/21 Principal diagnosis: CAD, status post off-pump CABG This is a 70-year-old white male of Dr. Bautista, with past medical history of hypertension, hyperlipidemia, diabetes mellitus2 on insulin, ulcerative colitis with history of colectomy and ileostomy placement, obstructive sleep apnea on home CPAP, family history of early onset coronary artery disease, history of 2 previous CVA in 2015 and 2018, with residual left-sided weakness. Patient was recently hospitalized when she came in for evaluation cough with fatigue, shortness of breath, and diaphoresis. Patient had a cardiac catheterization on 02/03/2021 which demonstrated a 60-70% stenosis of his left main coronary artery, 80% stenosis to his mid LAD, 40% stenosis to his proximal LAD, 80% stenosis to his PLV branch of the right coronary artery. Outpatient echocardiogram showed severe hypokinesia of the mid to distal anterior septal wall and adjoining apex with an ejection fraction of 40% and moderate concentric LVH. Patient was referred to cardiothoracic surgery for surgical intervention. FEV1 was completed showing a predicted value of 89% of predicted with a volume of 2.61 L. On 02/09/2021. Patient underwent off-pump CABG 4 with ABBOTT to the LAD, vein graft ABBOTT to high diagonal, sequential vein graft to PDA and SANDRA, appendectomy aortic ultrasound, and ligation of the left atrial appendage with a 35 mm AtriCure clip. Postoperative chest x-ray showed endotracheal tube, NG tube, left chest, right IJ Cordis, Bivalve-Kenyatta catheter, and mediastinal chest tube in appropriate position. Subsegmental basilar atelectatic changes were present, there was no sizable pneumothorax or pleural effusion. Postoperative blood gas showed pO2 of 397, pCO2 40, and pH 7.30. Stop her blood work has been reviewed, Levoxyl, was 10.5, hemoglobin is 10.5, INR is 1.2, sodium is 138, potassium is 4.2, chloride is 109, CO2 is 21, BUN is 27, creatinine 0.95. Hemodynamically patient has been stable. He was successfully weaned and extubated within 5 hours of OR exit time. This morning he seen in intensive care unit. He is awake and alert, oriented 3, he sitting up in a recliner, he is on 2 L of oxygen pulse ox of 97%, he is on lactated Ringer's at 30 mL an hour, insulin infusion is at 4 units per hour, no other drips. Hemodynamically he is stable, in sinus mechanism with a rate of 89. His PEEP pressure is 20 o ti 4. CVP is 1, he received 15% albumin. Cardiac output is 4.6 and cardiac index is 2.2. He is breathing comfortably, he is working on her incentive spirometer, 1 mediastinal and left pleural chest tube connected together, with a total of 600 mL of thin serosanguineous output since surgery. No air leak. Today's chest x-ray shows interval extubation, and probable atelectasis. Today's blood work was reviewed, hemoglobin is 10.7, white blood cell count is 10.3, electrolytes and renal profile were unremarkable. On 02/11/2021 patient seen in follow-up in intensive care unit, today is postop erative day #2, status post off-pump CABG 4. Patient is doing well, sitting up in the recliner, he is on 3 L of oxygen, breathing comfortably socks is 98%. He is working on incentive spirometer, there is no other drips other than lactated Ringer's at 30 ML per hour, hemodynamically patient is stable, he is in sinus mechanism the rate is controlled. PA catheter was removed. He still has medias tinal and left pleural chest tube in place, with 480 mL of thin serosanguineous output in the last 24 hours. No evidence of air leak, today's chest x-ray showing interstitial edema, subsegmental basilar atelectatic changes. Patient denies any pain, denies any complaints. Midsternal incision, chest tube sites, right lower leg saphenous venous graft incision site clean dry and intact. His labs have been reviewed, we'll globin is 7.6, platelet count is 70. Sodium is 131, depressive electrolytes are within normal limits, BUN is 22, and creatinine is 1.23. On 02/13/2021 patient seen in follow-up in the intensive care unit, today's postoperative day #3, status post four-vessel off-pump CABG. Patient is doing very well, sitting up in the recliner, currently on 2 L of oxygen pulse ox 95%, incentive spirometer effort is 500 mL. His breathing comfortably, chest tubes have been discontinued, right IJ Cordis discontinued. He still has a line in place. Melvin catheter has been discontinued, and patient has been voiding. Is in -432 mL net fluid balance over the last 24 hours. Reports no acute events overnight, today's chest x-ray has been reviewed showing no thorax, there is some probable subsegmental basilar atelectatic changes. His labs have been noted. Objective - Vital Signs Vital signs: Vital Signs Temp 98.0 F 02/12/21 08:00 Pulse 100 02/12/21 08:00 Resp 15 02/12/21 08:00 BP 106/75 02/12/21 08:00 Pulse Ox 95 02/12/21 08:00 Intake & Output 02/11/21 02/12/21 02/12/21 18:59 06:59 18:59 Intake Total 1182 682 72 Output Total 1025 1490 0 Balance 157 -808 72 Weight 90.5 kg Intake: IV 432 432 72 .9 NS pressure bag 72 72 12 Lactated Ringers 1,000 ml 360 360 60 @ 20 mls/hr IV .Q24H [facility] Rx#:[id number] Oral 750 250 Output: Chest Tube Drainage 60 Chest Tube Left Pleural/ 60 Mediastinal Urine 615 1090 0 Stool 350 400 Other: Voiding Method Indwelling Catheter Urinal # Voids 0 0 ABP, PAP, CO, CI - Last Documented Arterial Blood Pressure 107/54 Pulmonary Artery Pressure 20/5 Cardiac Output 6.5 Cardiac Index 3.2 - Exam GENERAL EXAM: Alert, very pleasant, 70-year-old white male, sitting up in the recliner, on 2 L oxygen pulse ox of 95% comfortable in no apparent distress. HEAD: Normocephalic/atraumatic. EYES: Normal reaction of pupils, equal size. Conjunctiva pink, sclera white. NOSE: Clear with pink turbinates. THROAT: No erythema or exudates. NECK: No masses, no JVD, no thyroid enlargement, no adenopathy. Right IJ Cordis and Bivalve-Kenyatta catheter present CHEST: No chest wall deformity. Symmetrical expansion. Midsternal incision is clean dry and intact, pleural and mediastinal chest tubes have been disco ntinued. LUNGS: Equal air entry with no crackles, wheeze, rhonchi or dullness. CVS: Regular rate and rhythm, normal S1 and S2, no gallops, no murmurs, no rubs ABDOMEN: Soft, nontender. No hepatosplenomegaly, normal bowel sounds, no guarding or rigidity. EXTREMITIES: No clubbing, no edema, no cyanosis, 2+ pulses and upper and lower extremities. he has SCDs on bilateral lower extremities MUSCULOSKELETAL: Muscle strength and tone normal. SPINE: No scoliosis or deformity SKIN: No rashes, right lower leg incision is clean dry and intact CENTRAL NERVOUS SYSTEM: Alert and oriented -3. No focal deficits, tone is normal in all 4 extremities. PSYCHIATRIC: Alert and oriented -3. Appropriate affect. Intact judgment and insight. - Labs CBC & Chem 7: 02/12/21 03:27 02/12/21 03:27 Labs: Abnormal Lab Results - Last 24 Hours (Table) 02/11/21 02/11/21 02/11/21 Range/Units 11:46 11:53 16:50 RBC 2.30 L (4.30-5.90) m/uL Hgb 7.5 L (13.0-17.5) gm/dL Hct 21.6 L (39.0-53.0) % Plt Count 87 L (150-450) k/uL Lymphocytes # (1.0-4.8) k/uL Sodium (137-145) mmol/L Glucose (74-99) mg/dL POC Glucose (mg/dL) 211 H 218 H (75-99) mg/dL Total Protein (6.3-8.2) g/dL Albumin (3.5-5.0) g/dL 02/11/21 02/12/21 02/12/21 Range/Units 20:36 03:27 03:27 RBC 2.20 L (4.30-5.90) m/uL Hgb 7.3 L (13.0-17.5) gm/dL Hct 21.0 L (39.0-53.0) % Plt Count 81 L (150-450) k/uL Lymphocytes # 0.7 L (1.0-4.8) k/uL Sodium 132 L (137-145) mmol/L Glucose 149 H (74-99) mg/dL POC Glucose (mg/dL) 261 H (75-99) mg/dL Total Protein 5.3 L (6.3-8.2) g/dL Albumin 3.2 L (3.5-5.0) g/dL 02/12/21 Range/Units 06:07 RBC (4.30-5.90) m/uL Hgb (13.0-17.5) gm/dL Hct (39.0-53.0) % Plt Count (150-450) k/uL Lymphocytes # (1.0-4.8) k/uL Sodium (137-145) mmol/L Glucose (74-99) mg/dL POC Glucose (mg/dL) 176 H (75-99) mg/dL Total Protein (6.3-8.2) g/dL Albumin (3.5-5.0) g/dL Assessment and Plan Plan: Assessment: #1. Coronary artery disease, symptomatic, status post off-pump CABG 4, with the ABBOTT to LAD, vein graft ABBOTT to high diagonal, sequential vein graft to PDA and SANDRA. Ligation of the left atrial appendage with a 35 mm AtriCure clip on 02/09/2021 #2. Routine postop ventilator management, patient was successfully weaned and extubated on postoperative day #0, on 02/09/2021 within 5 hours of OR exit time #3. Hypertension #4. Hyperlipidemia #5. Diabetes mellitus type 2 #6. Family history of early onset coronary artery disease #7. Previous history of CVA 2 with residual left-sided weakness and balance issues #8. Ulcerative colitis, with history of bowel resection and ileostomy on 03/19 #9. Obstructive sleep apnea on home CPAP #10. Former smoker, with preop FEV1 value of 2.61 L #11. Osteoarthritis #12. Acute blood loss anemia, expected outcome of sternotomy, and coronary artery bypass grafting surgery. Plan: This morning's chest x-ray has been reviewed showing subsegmental basilar atelectasis Chest tubes have been discontinued, No evidence of pneumothorax Encourage deep breathing and coughing Incentive spirometry use Hemodynamically stable Increase activity as tolerated No acute issues overnight We'll continue to follow I performed a history & physical examination of the patient and discussed their management with my nurse practitioner, Pamela Dumont. I reviewed the nurse practitioner's note and agree with the documented findings and plan of care. Lung sounds are positive for clear breath sounds throughout the lung galo. The findings and the impression was discussed with the patient. I attest to the documentation by the nurse practitioner. Time with Patient: Less than 30
[2021-02-12 11:56] LABS: Glucose,Whole Blood 206 mg/dL (75-99)
--- NOTE | 2021-02-12 12:01 | P.PN ---
Subjective Progress Note Date: 02/12/21 HISTORY OF PRESENT ILLNESS 70-year-old male one of my office patient known to me for many years with history of ulcerative colitis, recurrent kidney stone, hypertension, hyperlipi demia and type 2 diabetes on insulin with the blood to have recurrent sinus symptom of shortness of breath along with chest pain and tightness. Patient was scheduled for stress test originally his symptom becomes slightly worse was seen Dr. DEDE blum and decision to go for heart cath was done and shows three-vessel disease. Patient was seen Dr. Dhillon and scheduled for elective bypass surgery which was done successfully today patient was extubated in intensive care unit feeling well with no pain and hemodynamically stable. Blood sugar has been slightly but elevated patient was seen his neighbor Dr. Asha blum who started him on shorter acting insulin before meals meals plus continue glucose monitor was placed last week and showing his blood sugar running below 200. Patient also still on long acting insulin around 44 units daily along with Trulicity 1.5 mg injection a week. Patient had CVA in 2018 and the time had atypical arrhythmia with his recurrent blood clot and having more than 2 DVT along with arrhythmia was started on anticoagulation which patient has been on since. Apparently cardiology are planning to take him off anticoagulation completely and do coagulopathy study if need. With Dr. Dhillon patient had 4 vessel bypass which is ABBOTT to the LAD, vein graft ABBOTT to high diagonal, vein graft to PDA and SANDRA also patient had left atrial appendage with 35mm AtrialCure clip to reduce any type of thrombus from A. fib if it ever happened. Patient was transferred to the ICU as I mentioned shortly was extubated successfully doing well able to answer his question properly. Blood sugar is mildly elevated patient required 2 unit of insulin drip and hour to keep his blood sugar below 120. 02/10: Patient is seen today in the intensive care unit. Patient has gotten up to the bedside chair and is seen ambulating in the hallway with physical therapy. Patient states that this is the first time he has been up out of bed. He remains with one mediastinal and left pleural chest tubes in place with serosanguineous output. No air leak. Sodium 136, potassium 4.2, chloride 105, CO2 22, BUN 19 and creatinine 0.91. Blood sugars are running in the 120s to 160s. Repeat chest x-ray reveals 02/11: Patient remains in the intensive care unit, chest tubes are in place, he is seen today sitting up in a recliner and appears to be comfortable. Blood sugars are on the higher side and Levemir will be increased to 25 units at bedtime. Repeat chest x-ray reveals considered for interstitial edema, subsegmental basilar atelectatic changes. Cardiology is suggesting holding Plavix at this time due to hemoglobin drop. Repeat blood work reveals hemoglobin 7.6, platelet count 70, wbc's 6. Sodium 131, potassium 4, chloride 102, CO2 23, BUN 22 and creatinine 1.23. Blood sugars are running between 157 and 276. Liver function tests are normal. 02/12: Patient remains in the intensive care unit. Repeat chest x-ray reveals no complication from chest tube removal. He has been afebrile, heart rate 100, blood pressure 106/75, pulse ox 95% on 2 L nasal cannula. He is reaching 500 ML's on incentive spirometry. Patient has had chest tubes, right IJ Cordis, Melvin catheter removed. Patient states he is feeling tired last night and did not sleep well because coughing kept him awake. He does complain of some chest pain with deep breathing. Melatonin has been added. Repeat blood work reveals WBC 7.1, hemoglobin 7.3, platelet count 81. Sodium 132, creatinine 1.05. Blood sugars are running between 176 and 261. Levemir increased to 35 units at bedtime, home dose is 40 units. HIT antibody was ordered yesterday. REVIEW OF SYSTEMS Constitutional: No fever, no chills, no night sweats. No weight change. Mild weakness fatigue and lethargy following his surgery and extubation. EENT: No headache. No blurred vision or double vision, no loss of vision. No loss of Hearing, no ringing in the ears, no dizziness. No nasal drainage or congestion. No epistaxis. No sore throat. Lungs: Denies shortness of breath. Positive cough nonproductive. Cardiovascular: Positive chest pain from his incision from his surgery no lower extremity edema no PND or orthopnea no palpitation pulse rate is running well and no major change in blood pressure currently. Abdominal: No abdominal pain. No nausea, vomiting. No diarrhea. No constipation. No bloody or tarry stools.. No loss of appetite. Genitourinary: No dysuria, increased frequency, urgency. No urinary retention, no urinary retention. Musculoskeletal: No myalgias. No muscle weakness, no gait dysfunction, no frequent falls. No back pain. No neck pain. Integumentary: Surgical wounds, no lesions. No rash or pruritus. No unusual bruising. No change in hair or nails. Neurologic: No aphasia. No facial droop. No change in mentation. No head injury. No headache. No paralysis. No paresthesia. Psychiatric: No depression. No anxiety. No mood swings. Endocrine: No abnormal blood sugars. No weight change. No excessive sweating or thirst. No cold intolerance. PHYSICAL EXAMINATION Gen: This is a well-developed 70-year-old male. Patient is resting in bed and appears to be comfortable. HEENT: Head is atraumatic, normocephalic. Pupils equal, round. Sclerae is anicteric. NECK: Supple. No JVD. No lymphadenopathy. No thyromegaly. LUNGS: Decreased expansion bilaterally specially in the left side positive fine rhonchi with no crackles chest wall incision looks fine with 2 chest tube. HEART: Regular rate and rhythm. No murmur. ABDOMEN: Soft. Bowel sounds are present. No masses. No tenderness. EXTREMITIES: No pedal edema. No calf tenderness. Dorsalis pedis +[address] NEUROLOGICAL: Patient is awake, alert and oriented x3. Cranial nerves 2 through 12 are grossly intact. ASSESSMENT AND PLAN 1. CAD with multiple coronary artery disease post 4 vessel bypass surgery patient is doing well continue current management still in the ICU was extubated successfully. 2 history of atrial fibrillation: Post AtrialCure clip doing well so far pulse rates under control with no sign of A. fib. 3 type 2 diabetes: Has been on insulin and Tradjenta along with Trulicity, continue Levemir increased to 35 units at bedtime, continue NovoLog 4 units scheduled before meals and at bedtime along with scale. 4 history of ulcerative colitis with multiple complication up till patient had subtotal colectomy and has been doing well since no sign of anemia or any active bleed. 5 history of hypertension. Continue Lopressor increased to 50 mg every 12 hours. 6 BPH: Remain on Proscar and Flomax watch for any urinary retention. 7 hyperlipidemia: Remain on atorvastatin 40 mg a day. 8 chronic diarrhea: Patient had short bowel syndrome along with lifelong history of colitis has been on Lomotil on as-needed basis. 9 chronic history of iron deficiency anemia: Remain on iron supplement daily. 10 severe GERD: Resume omeprazole at 20 mg daily. 11 history of sleep apnea: Has been using CPAP. 12 GI prophylaxis: Remain on omeprazole. CODE STATUS: Full code. Dr. Dhillon thank you very much for the consult if I can be any further help to please let me know. DISCHARGE PLAN Home with [facility] Impression and plan of care have been directed as dictated by the signing physician. Azucena Goode nurse practitioner acting as scribe for signing physician. Objective - Vital Signs Vital signs: Vital Signs Temp 98.0 F 02/12/21 08:00 Pulse 100 02/12/21 08:00 Resp 15 02/12/21 08:00 BP 106/75 02/12/21 08:00 Pulse Ox 95 02/12/21 08:00 Intake & Output 02/11/21 02/12/21 02/12/21 18:59 06:59 18:59 Intake Total 1182 682 72 Output Total 1025 1490 0 Balance 157 -808 72 Weight 90.5 kg Intake: IV 432 432 72 .9 NS pressure bag 72 72 12 Lactated Ringers 1,000 ml 360 360 60 @ 20 mls/hr IV .Q24H [facility] Rx#:[id number] Oral 750 250 Output: Chest Tube Drainage 60 Chest Tube Left Pleural/ 60 Mediastinal Urine 615 1090 0 Stool 350 400 Other: Voiding Method Indwelling Catheter Urinal # Voids 0 0 ABP, PAP, CO, CI - Last Documented Arterial Blood Pressure 107/54 Pulmonary Artery Pressure 20/5 Cardiac Output 6.5 Cardiac Index 3.2 - Labs CBC & Chem 7: 02/12/21 03:27 02/12/21 03:27 Labs: Abnormal Lab Results - Last 24 Hours (Table) 02/11/21 02/11/21 02/11/21 Range/Units 11:46 11:53 16:50 RBC 2.30 L (4.30-5.90) m/uL Hgb 7.5 L (13.0-17.5) gm/dL Hct 21.6 L (39.0-53.0) % Plt Count 87 L (150-450) k/uL Lymphocytes # (1.0-4.8) k/uL Sodium (137-145) mmol/L Glucose (74-99) mg/dL POC Glucose (mg/dL) 211 H 218 H (75-99) mg/dL Total Protein (6.3-8.2) g/dL Albumin (3.5-5.0) g/dL 02/11/21 02/12/21 02/12/21 Range/Units 20:36 03:27 03:27 RBC 2.20 L (4.30-5.90) m/uL Hgb 7.3 L (13.0-17.5) gm/dL Hct 21.0 L (39.0-53.0) % Plt Count 81 L (150-450) k/uL Lymphocytes # 0.7 L (1.0-4.8) k/uL Sodium 132 L (137-145) mmol/L Glucose 149 H (74-99) mg/dL POC Glucose (mg/dL) 261 H (75-99) mg/dL Total Protein 5.3 L (6.3-8.2) g/dL Albumin 3.2 L (3.5-5.0) g/dL 02/12/21 Range/Units 06:07 RBC (4.30-5.90) m/uL Hgb (13.0-17.5) gm/dL Hct (39.0-53.0) % Plt Count (150-450) k/uL Lymphocytes # (1.0-4.8) k/uL Sodium (137-145) mmol/L Glucose (74-99) mg/dL POC Glucose (mg/dL) 176 H (75-99) mg/dL Total Protein (6.3-8.2) g/dL Albumin (3.5-5.0) g/dL
[2021-02-12] MEDS: ACETAMINOPHEN TAB 325 MG TAB PO PRN (15:05)
[2021-02-12 17:01] LABS: Glucose,Whole Blood 201 mg/dL (75-99)
[2021-02-12 20:17] LABS: Glucose,Whole Blood 220 mg/dL (75-99)
[2021-02-12] MEDS: TAMSULOSIN 0.4 MG CAP.ER.24H PO SCH (20:32)
[2021-02-12] MEDS: ATORVASTATIN 40 MG TAB PO SCH (20:32)
[2021-02-12] MEDS: FERROUS SULFATE 325 MG TAB PO SCH (20:32)
[2021-02-12] MEDS ORDERED: INSULIN DETEMIR (LEVEMIR) 100 UNIT/ML SYR SQ SCH ×2 (21:00)
[2021-02-13 04:20] LABS: HGB 7.2 gm/dL (13.0-17.5); MCH 33.1 pg (25.0-35.0); MCHC 34.4 g/dL (31.0-37.0); MCV 96.2 fL (80.0-100.0); Mean Platelet Volume 10.8; RBC 2.19 m/uL (4.30-5.90); RDW 14.8 % (11.5-15.5); WBC 7.8 k/uL (3.8-10.6)
[2021-02-13 04:28] LABS: Platelet Count 129 k/uL (150-450)
[2021-02-13 04:34] LABS: African American GFR (CKD) >90 (>60 ml/min/1.73 sqM); Anion Gap 7 mmol/L; Blood Urea Nitrogen 19 mg/dL (9-20); Calcium 8.9 mg/dL (8.4-10.2); Carbon Dioxide 23 mmol/L (22-30); Chloride 102 mmol/L (98-107); Glucose 205 mg/dL (74-99); Non-African American GFR(CKD) 82 (>60 ml/min/1.73 sqM); Potassium 4.4 mmol/L (3.5-5.1); Sodium 132 mmol/L (137-145)
[2021-02-13 06:23] LABS: Glucose,Whole Blood 187 mg/dL (75-99)
[2021-02-13] MEDS: INSULIN ASPART (NovoLOG) 100 UNIT/ML VIAL SQ SCH ×8 (06:51→21:21)
[2021-02-13] MEDS: PANTOPRAZOLE 40 MG TABLET PO SCH ×2 (06:51→17:05)
--- NOTE | 2021-02-13 07:21 | XR ---
EXAMINATION TYPE: XR chest 2V DATE OF EXAM: 02/13/2021 COMPARISON: 02/12/2021 HISTORY: 70 years Male. STUDY INDICATION GIVEN: post cardiac surgery . TECHNIQUE: Frontal and lateral chest radiographs FINDINGS AND IMPRESSION: There is bilateral left greater than right pleural effusion slightly decreased compared to prior. No evidence for pneumothorax. Mild interstitial edema slightly improved. Bibasilar subsegmental atelectasis also improved. Stable prominence of the cardiac silhouette with postsurgical changes. Right jugular CVC not seen.
--- NOTE | 2021-02-13 07:25 | P.PN ---
Subjective Progress Note Date: 02/13/21 Principal diagnosis: Coronary artery disease and status post CABG This is a very pleasant 70-year-old gentleman who was admitted to the hospital and underwent elective CABG 4 with ABBOTT to LAD and vein graft to diagonal and also vein graft to PDA and PLV. The patient was seen this morning. This is postoperative operation day #4. Overall he seems to be clinically stable. His pressure has been marginal but he is tachycardic with frequent PVCs. I would suggest increasing the dose of metoprolol at this point. He is not on any vasopressors. His platelet has improved. The hemoglobin is stable at 7.2. The chest x-ray was reviewed and seems to be also better. The patient potentially can be transferred to selective unit. Objective - Vital Signs Vital signs: Vital Signs Temp 98.2 F 02/13/21 04:00 Pulse 99 02/13/21 04:00 Resp 20 02/13/21 04:00 BP 104/67 02/13/21 04:00 Pulse Ox 95 02/13/21 04:00 Intake & Output 02/12/21 02/13/21 02/13/21 18:59 06:59 18:59 Intake Total 280 Output Total 1100 700 Balance -820 -700 Weight 89.5 kg Intake: IV 180 .9 NS pressure bag 30 Lactated Ringers 1,000 ml 150 @ 20 mls/hr IV .Q24H [facility] Rx#:[id number] Intake, IV Titration 100 Amount Sodium Ferric Gluconat- 100 Sucrose 125 mg In Sodium Chloride 0.9% 100 ml @ 100 mls/hr IVPB DAILY [facility] Rx#:[id number] Output: Urine 800 700 Stool 300 Other: Voiding Method Urinal Urinal # Voids 0 ABP, PAP, CO, CI - Last Documented Arterial Blood Pressure 117/58 Pulmonary Artery Pressure 20/5 Cardiac Output 6.5 Cardiac Index 3.2 - Constitutional General appearance: Present: no acute distress - Respiratory Respiratory: bilateral: CTA - Cardiovascular Rhythm: regular Heart sounds: normal: S1, S2 - Labs CBC & Chem 7: 02/13/21 03:56 02/13/21 03:56 Labs: Abnormal Lab Results - Last 24 Hours (Table) 02/12/21 02/12/21 02/12/21 Range/Units 11:55 16:59 20:15 RBC (4.30-5.90) m/uL Hgb (13.0-17.5) gm/dL Hct (39.0-53.0) % Plt Count (150-450) k/uL Sodium (137-145) mmol/L Glucose (74-99) mg/dL POC Glucose (mg/dL) 206 H 201 H 220 H (75-99) mg/dL 02/13/21 02/13/21 02/13/21 Range/Units 03:56 03:56 06:22 RBC 2.19 L (4.30-5.90) m/uL Hgb 7.2 L (13.0-17.5) gm/dL Hct 21.0 L (39.0-53.0) % Plt Count 129 L D (150-450) k/uL Sodium 132 L (137-145) mmol/L Glucose 205 H (74-99) mg/dL POC Glucose (mg/dL) 187 H (75-99) mg/dL Assessment and Plan Assessment: Assessment #1 coronary artery disease and status post CABG #2 multiple comorbid conditions including diabetes and hypertension and dyslipidemia #3 history of CVA Plan #1 continue the current medical regimen #2 continue monitor the platelet as well as hemoglobin #3 the patient can be transferred out of the ICU
[2021-02-13] MEDS: IPRATROPIUM-ALBUTEROL 3 ML NEB INHALATION SCH ×4 (07:27→19:22)
[2021-02-13] MEDS: METOPROLOL TARTRATE 25 MG TAB PO SCH ×2 (08:41→21:21)
[2021-02-13] MEDS: MULTIVITAMINS, THERA 1 EACH TAB PO SCH (08:41)
[2021-02-13] MEDS: ASPIRIN 81 MG PO SCH (08:41)
[2021-02-13] MEDS: ASCORBIC ACID 500 MG TAB PO SCH (08:41)
[2021-02-13] MEDS: CHOLECALCIFEROL 25 MCG (1000 IU) TABLET PO SCH (08:41)
[2021-02-13] MEDS: CLOPIDOGREL 75 MG TAB PO SCH (08:42)
[2021-02-13] MEDS: DULoxetine HCL 30 MG CAPSULE.DR PO SCH (08:42)
[2021-02-13] MEDS: FONDAPARINUX 2.5 MG/0.5 ML SYRINGE SQ SCH (08:43)
[2021-02-13] MEDS: FINASTERIDE 5 MG TAB PO SCH (08:43)
--- NOTE | 2021-02-13 09:31 | P.PN ---
Subjective Progress Note Date: 02/13/21 Principal diagnosis: Coronary artery disease with left main disease. Previous medical history of hypertension, hyperlipidemia, insulin-dependent diabetes, CVA in 2015 and 2018 without residual deficits, previous tobacco dependence, obstructive sleep apnea with home CPAP use, history of GI bleed, ulcerative colitis with colectomy and ileostomy pouch placement, remote history of pneumonia, preoperative thrombocytopenia, and family history of premature coronary artery disease. Vaccinated against coated with Moderna vaccine POD #4 off-pump coronary artery bypass graft 4 with left internal mammary artery to the left anterior descending artery, reverse saphenous vein graft from the left internal mammary artery to the high diagonal, sequential vein graft to the PDA and SANDRA. Epi-aortic ultrasound. Ligation of the left atrial appendage with a 35 mm AtriCure clip. Endovascular vein harvest of the right greater saphenous vein from the mid calf to the groin Postoperative acute blood loss anemia and thrombocytopenia, expected given the hemodilution and preoperative thrombocytopenia The patient's currently sitting up in a recliner in the intensive care unit in no acute distress. States pain is controlled on current medication regimen, denies shortness of breath. States he slept better last night and is feeling pretty good this morning. Currently in normal sinus rhythm to sinus tach with occasional PVCs, otherwise hemodynamically stable. Attempting incentive spirometry use and achieving 750-1000 mL. Oxygenating in the mid 90s on room air. Urine output adequate. Hemaglobin stable 7.2, platelet 129,000, HIT panel negative. He has ambulated in the hallway several times with assistance, denies any weakness or dizziness. Transfer orders placed yesterday for 3 S. cardiac stepdown unit, no beds available. No other new concerns Objective - Vital Signs Vital signs: Vital Signs Temp 98.2 F 02/13/21 04:00 Pulse 99 02/13/21 04:00 Resp 20 02/13/21 04:00 BP 104/67 02/13/21 04:00 Pulse Ox 95 02/13/21 04:00 Intake & Output 02/12/21 02/13/21 02/13/21 18:59 06:59 18:59 Intake Total 280 Output Total 1100 700 Balance -820 -700 Weight 89.5 kg Intake: IV 180 .9 NS pressure bag 30 Lactated Ringers 1,000 ml 150 @ 20 mls/hr IV .Q24H [facility] Rx#:[id number] Intake, IV Titration 100 Amount Sodium Ferric Gluconat- 100 Sucrose 125 mg In Sodium Chloride 0.9% 100 ml @ 100 mls/hr IVPB DAILY [facility] Rx#:[id number] Output: Urine 800 700 Stool 300 Other: Voiding Method Urinal Urinal # Voids 0 ABP, PAP, CO, CI - Last Documented Arterial Blood Pressure 117/58 Pulmonary Artery Pressure 20/5 Cardiac Output 6.5 Cardiac Index 3.2 - Exam CONSTITUTIONAL: Appears comfortable, cooperative, no acute distress RESPIRATORY: Lungs sounds diminished bilaterally. Respirations even, nonlabored. Currently on room air with oxygen saturation 95%. Able to achieve 750-1000 mL on incentive spirometry. Strong cough. CARDIOVASCULAR: S1, S2 present. Regular rate and rhythm, sinus rhythm to sinus tach with occasional PVCs on telemetry with heart rate in the high 90s to low 100s. Sternum stable. Palpable peripheral pulses bilaterally. Trace right lower extremity edema present. No calf pain or tenderness noted. Heart hugger in place with patient demonstrating appropriate use. Antiembolism stockings, SCDs present. GASTROINTESTINAL: Abdomen soft, nontender, nondistended. Active bowel sounds present 4 quadrants. Tolerating diet. Positive stool in right sided ileostomy GENITOURINARY: Continues to void 100-400 mL at a time. Output 1500 mL in the last 24 hours INTEGUMENTARY: Skin is warm and dry with evidence of good perfusion. Anterior chest incision well approximated. Right lower extremity EVH site well approximated, very eccymotic and sore proximal medial thigh, outlined without any spread and josh wrapped NEUROLOGIC: Cranial nerves II through XII intact MUSKULOSKELETAL: Able to move all extremities, strength equal bilaterally PSYCHIATRIC: Alert and oriented to person place and time, appropriate affect, intact judgment and insight - Allied health notes Allied health notes reviewed: nursing - Labs CBC & Chem 7: 02/13/21 03:56 02/13/21 03:56 Labs: Abnormal Lab Results - Last 24 Hours (Table) 02/12/21 02/12/21 02/12/21 Range/Units 11:55 16:59 20:15 RBC (4.30-5.90) m/uL Hgb (13.0-17.5) gm/dL Hct (39.0-53.0) % Plt Count (150-450) k/uL Sodium (137-145) mmol/L Glucose (74-99) mg/dL POC Glucose (mg/dL) 206 H 201 H 220 H (75-99) mg/dL 02/13/21 02/13/21 02/13/21 Range/Units 03:56 03:56 06:22 RBC 2.19 L (4.30-5.90) m/uL Hgb 7.2 L (13.0-17.5) gm/dL Hct 21.0 L (39.0-53.0) % Plt Count 129 L D (150-450) k/uL Sodium 132 L (137-145) mmol/L Glucose 205 H (74-99) mg/dL POC Glucose (mg/dL) 187 H (75-99) mg/dL - Imaging and Cardiology Chest x-ray: report reviewed, image reviewed Assessment and Plan Assessment: 1. Coronary artery disease with left main disease, status post off-pump three- vessel CABG 2. History of hypertension 3. Hyperlipidemia, treated, cholesterol 83, LDL 8 4. Insulin-dependent diabetes, uncontrolled with hyperglycemia, preop hemoglobin A1c 8.6% 5. CVA in 2014 and 2018 without residual deficits 6. Previous tobacco dependence, preoperative FEV1 89% of predicted 7. Ostructive sleep apnea with home CPAP use 8. History of GI bleed 9. Ulcerative colitis with colectomy and ileostomy pouch placement 10. Remote history of pneumonia 11. Preoperative thrombocytopenia 12. Family history of premature coronary artery disease. 13. Postoperative acute blood loss anemia and thrombocytopenia, expected Plan: 1. Continue low-dose aspirin, statin, Plavix, beta oscar therapy. Will increase beta oscar as tolerated, increased to 75 mg BID today 2. Encourage incentive spirometry 10 times every hour while awake. Bronchodilators per pulmonology 3. Increase activity, ambulate as tolerated. PT/OT/cardiac rehab following 4. Will monitor daily labs and x-rays. Electrolyte replacement per protocol. No transfusion today. No Lasix 5. GI/DVT prophylaxis. HIT panel negative. 6. Pain control with current medication regimen. 7. Insulin management per primary care service. Patient needs tight blood sugar control to promote sternal union and prevent infection. Appreciate recommendations for discharge insulin 8. Keep right lower extremity josh-wrapped, may use heat packs, monitor eccymosis 9. Strict accurate intake and output. Daily weights 10. Transfer orders placed for [address] [place] [address] cardiac step down unit. May transfer when bed available 11. Discharge planning in progress. Anticipate discharge to home with home care in the next 24 hours 12. More recommendations to follow Time with Patient: Greater than 30
[2021-02-13 11:19] LABS: Glucose,Whole Blood 187 mg/dL (75-99)
--- NOTE | 2021-02-13 12:43 | P.PN ---
Subjective Progress Note Date: 02/13/21 Principal diagnosis: Coronary artery disease status post coronary artery bypass grafting This is a 70-year-old white male of Dr. Bautista, with past medical history of hypertension, hyperlipidemia, diabetes mellitus2 on insulin, ulcerative colitis with history of colectomy and ileostomy placement, obstructive sleep apnea on home CPAP, family history of early onset coronary artery disease, history of 2 previous CVA in 2015 and 2018, with residual left-sided weakness. Patient was recently hospitalized when she came in for evaluation cough with fatigue, shortness of breath, and diaphoresis. Patient had a cardiac catheterization on 02/03/2021 which demonstrated a 60-70% stenosis of his left main coronary artery, 80% stenosis to his mid LAD, 40% stenosis to his proximal LAD, 80% stenosis to his PLV branch of the right coronary artery. Outpatient echocardiogram showed severe hypokinesia of the mid to distal anterior septal wall and adjoining apex with an ejection fraction of 40% and moderate concentric LVH. Patient was referred to cardiothoracic surgery for surgical intervention. FEV1 was completed showing a predicted value of 89% of predicted with a volume of 2.61 L. On 02/09/2021. Patient underwent off-pump CABG 4 with ABBOTT to the LAD, vein graft ABBOTT to high diagonal, sequential vein graft to PDA and SANDRA, appendectomy aortic ultrasound, and ligation of the left atrial appendage with a 35 mm AtriCure clip. Postoperative chest x-ray showed endotracheal tube, NG tube, left chest, right IJ Cordis, [place] catheter, and mediastinal chest tube in appropriate position. Subsegmental basilar atelectatic changes were present, there was no sizable pneumothorax or pleural effusion. Postoperative blood gas showed pO2 of 397, pCO2 40, and pH 7.30. Stop her blood work has been reviewed, Levoxyl, was 10.5, hemoglobin is 10.5, INR is 1.2, sodium is 138, po tassium is 4.2, chloride is 109, CO2 is 21, BUN is 27, creatinine 0.95. Hemodynamically patient has been stable. He was successfully weaned and extubated within 5 hours of OR exit time. This morning he seen in intensive care unit. He is awake and alert, oriented 3, he sitting up in a recliner, he is on 2 L of oxygen pulse ox of 97%, he is on lactated Ringer's at 30 mL an hour, insulin infusion is at 4 units per hour, no other drips. Hemodynamically he is stable, in sinus mechanism with a rate of 89. His PEEP pressure is 20 over 4. CVP is 1, he received 15% albumin. Cardiac output is 4.6 and cardiac index is 2.2. He is breathing comfortably, he is working on her incentive spirometer, 1 mediastinal and left pleural chest tube connected together, with a total of 600 mL of thin serosanguineous output since surgery. No air leak. Today's chest x-ray shows interval extubation, and probable atelectasis. Today's blood work was reviewed, hemoglobin is 10.7, white blood cell count is 10.3, electrolytes and renal profile were unremarkable. On 02/11/2021 patient seen in follow-up in intensive care unit, today is postoperative day #2, status post off-pump CABG 4. Patient is doing well, sitting up in the recliner, he is on 3 L of oxygen, breathing comfortably socks is 98%. He is working on incentive spirometer, there is no other drips other than lactated Ringer's at 30 ML per hour, hemodynamically patient is stable, he is in sinus mechanism the rate is controlled. PA catheter was removed. He still has mediastinal and left pleural chest tube in place, with 480 mL of thin serosanguineous output in the last 24 hours. No evidence of air leak, today's chest x-ray showing interstitial edema, subsegmental basilar atelectatic changes. Patient denies any pain, denies any complaints. Midsternal incision, chest tube sites, right lower leg saphenous venous graft incision site clean dry and intact. His labs have been reviewed, we'll globin is 7.6, platelet count is 70. Sodium is 131, depressive electrolytes are within normal limits, BUN is 22, and creatinine is 1.23. On 02/13/2021 patient seen in follow-up in the intensive care unit, today's postoperative day #3, status post four-vessel off-pump CABG. Patient is doing very well, sitting up in the recliner, currently on 2 L of oxygen pulse ox 95%, incentive spirometer effort is 500 mL. His breathing comfortably, chest tubes have been discontinued, right IJ Cordis discontinued. He still has a line in place. Melvin catheter has been discontinued, and patient has been voiding. Is in -432 mL net fluid balance over the last 24 hours. Reports no acute events overnight, today's chest x-ray has been reviewed showing no thorax, there is some probable subsegmental basilar atelectatic changes. His labs have been noted. The patient is seen today 02/14/2021 in follow-up on the intensive care unit. Postoperative day #4. Status post coronary artery bypass grafting 4. He is currently sitting up in the recliner. Doing very well. No complaints. His pain is well controlled. He is maintaining good O2 saturations in the 90s on room air. No IV fluids running. Appetite is good. Working well with the i ncentive spirometer. Chest x-ray reveals minimal bilateral effusions left greater than right. Improving mild interstitial edema. Improving basilar atelectasis. White count 7.8. Hemoglobin 7.2. Platelet count 129. Sodium 132. Potassium 4.4. Creatinine 0.93. Glucose 187. Objective - Vital Signs Vital signs: Vital Signs Temp 98.2 F 02/13/21 04:00 Pulse 99 02/13/21 04:00 Resp 20 02/13/21 04:00 BP 104/67 02/13/21 04:00 Pulse Ox 95 02/13/21 04:00 Intake & Output 02/12/21 02/13/21 02/13/21 18:59 06:59 18:59 Intake Total 280 Output Total 1100 700 Balance -820 -700 Weight 89.5 kg Intake: IV 180 .9 NS pressure bag 30 Lactated Ringers 1,000 ml 150 @ 20 mls/hr IV .Q24H KRISTIN Rx#:[id number] Intake, IV Titration 100 Amount Sodium Ferric Gluconat- 100 Sucrose 125 mg In Sodium Chloride 0.9% 100 ml @ 100 mls/hr IVPB DAILY KRISTIN Rx#:[id number] Output: Urine 800 700 Stool 300 Other: Voiding Method Urinal Urinal # Voids 0 ABP, PAP, CO, CI - Last Documented Arterial Blood Pressure 117/58 Pulmonary Artery Pressure 20/5 Cardiac Output 6.5 Cardiac Index 3.2 - Exam GENERAL EXAM: Alert, very pleasant, 70-year-old male patient, sitting up in the recliner, on room air, comfortable in no apparent distress. HEAD: Normocephalic/atraumatic. EYES: Normal reaction of pupils, equal size. Conjunctiva pink, sclera white. NOSE: Clear with pink turbinates. THROAT: No erythema or exudates. NECK: No masses, no JVD, no thyroid enlargement, no adenopathy. CHEST: No chest wall deformity. Symmetrical expansion. Midsternal incision is clean dry and intact, Heart Hugger in place. LUNGS: Equal air entry with faint crackles in the posterior bases. CVS: Regular rate and rhythm, normal S1 and S2, no gallops, no murmurs, no rubs ABDOMEN: Soft, nontender. No hepatosplenomegaly, normal bowel sounds, no guarding or rigidity. EXTREMITIES: No clubbing, no edema, no cyanosis, 2+ pulses and upper and lower extremities. he has SCDs on bilateral lower extremities MUSCULOSKELETAL: Muscle strength and tone normal. SPINE: No scoliosis or deformity SKIN: No rashes, right lower leg incision is clean dry and intact CENTRAL NERVOUS SYSTEM: No focal deficits, tone is normal in all 4 extremities. PSYCHIATRIC: Alert and oriented -3. Appropriate affect. Intact judgment and insight. - Labs CBC & Chem 7: 02/13/21 03:56 02/13/21 03:56 Labs: Abnormal Lab Results - Last 24 Hours (Table) 02/12/21 02/12/21 02/13/21 Range/Units 16:59 20:15 03:56 RBC 2.19 L (4.30-5.90) m/uL Hgb 7.2 L (13.0-17.5) gm/dL Hct 21.0 L (39.0-53.0) % Plt Count 129 L D (150-450) k/uL Sodium (137-145) mmol/L Glucose (74-99) mg/dL POC Glucose (mg/dL) 201 H 220 H (75-99) mg/dL 02/13/21 02/13/21 02/13/21 Range/Units 03:56 06:22 11:19 RBC (4.30-5.90) m/uL Hgb (13.0-17.5) gm/dL Hct (39.0-53.0) % Plt Count (150-450) k/uL Sodium 132 L (137-145) mmol/L Glucose 205 H (74-99) mg/dL POC Glucose (mg/dL) 187 H 187 H (75-99) mg/dL Assessment and Plan Assessment: 1 Coronary artery disease, symptomatic, status post off-pump CABG 4, with the ABBOTT to LAD, vein graft ABBOTT to high diagonal, sequential vein graft to PDA and SANDRA. Ligation of the left atrial appendage with a 35 mm AtriCure clip on 02/09/2021 2 Routine postop ventilator management, patient was successfully weaned and extubated on postoperative day #0, on 02/09/2021 within 5 hours of OR exit time. Currently on room air 3 Hypertension 4 Hyperlipidemia 5 Diabetes mellitus type 2 6 Family history of early onset coronary artery disease 7 Previous history of CVA 2 with residual left-sided weakness and balance issues 8 Ulcerative colitis, with history of bowel resection and ileostomy on 03/19/2018 9 Obstructive sleep apnea on home CPAP 10 Former smoker, with preop FEV1 value of 2.61 L 11 Osteoarthritis 12 Acute blood loss anemia, expected outcome of sternotomy, and coronary artery bypass grafting surgery. Plan: The patient was seen and evaluated by Dr. Henley Chest x-ray and labs reviewed Stable from the pulmonary and critical care standpoint Currently on room air and doing well Continue to utilize the incentive spirometer Increase his activity as tolerated Transfer to [address] [facility] Possible home in a.m. per CT services I, the cosigning physician, performed a history & physical examination of the patient. Lungs sounds faint crackles in the posterior. Maintaining good O2 saturations in the 90s on room air. I discussed the assessment and plan of care with my nurse practitioner, Carin Gonzalez. I attest to the above note as dictated by her.
[2021-02-13] MEDS: ACETAMINOPHEN TAB 325 MG TAB PO PRN ×2 (13:11→21:22)
[2021-02-13 16:43] LABS: Glucose,Whole Blood 221 mg/dL (75-99)
--- NOTE | 2021-02-13 17:19 | P.PN ---
Subjective Progress Note Date: 02/13/21 HISTORY OF PRESENT ILLNESS 70-year-old male one of my office patient known to me for many years with history of ulcerative colitis, recurrent kidney stone, hypertension, hyperlipi demia and type 2 diabetes on insulin with the blood to have recurrent sinus symptom of shortness of breath along with chest pain and tightness. Patient was scheduled for stress test originally his symptom becomes slightly worse was seen Dr. DEDE blum and decision to go for heart cath was done and shows three-vessel disease. Patient was seen Dr. Dhillon and scheduled for elective bypass surgery which was done successfully today patient was extubated in intensive care unit feeling well with no pain and hemodynamically stable. Blood sugar has been slightly but elevated patient was seen his neighbor Dr. Asha blum who started him on shorter acting insulin before meals meals plus continue glucose monitor was placed last week and showing his blood sugar running below 200. Patient also still on long acting insulin around 44 units daily along with Trulicity 1.5 mg injection a week. Patient had CVA in 2018 and the time had atypical arrhythmia with his recurrent blood clot and having more than 2 DVT along with arrhythmia was started on anticoagulation which patient has been on since. Apparently cardiology are planning to take him off anticoagulation completely and do coagulopathy study if need. With Dr. Dhillon patient had 4 vessel bypass which is ABBOTT to the LAD, vein graft ABBOTT to high diagonal, vein graft to PDA and SANDRA also patient had left atrial appendage with 35mm AtrialCure clip to reduce any type of thrombus from A. fib if it ever happened. Patient was transferred to the ICU as I mentioned shortly was extubated successfully doing well able to answer his question properly. Blood sugar is mildly elevated patient required 2 unit of insulin drip and hour to keep his blood sugar below 120. 02/10: Patient is seen today in the intensive care unit. Patient has gotten up to the bedside chair and is seen ambulating in the hallway with physical therapy. Patient states that this is the first time he has been up out of bed. He remains with one mediastinal and left pleural chest tubes in place with serosanguineous output. No air leak. Sodium 136, potassium 4.2, chloride 105, CO2 22, BUN 19 and creatinine 0.91. Blood sugars are running in the 120s to 160s. Repeat chest x-ray reveals 02/11: Patient remains in the intensive care unit, chest tubes are in place, he is seen today sitting up in a recliner and appears to be comfortable. Blood sugars are on the higher side and Levemir will be increased to 25 units at bedtime. Repeat chest x-ray reveals considered for interstitial edema, subsegmental basilar atelectatic changes. Cardiology is suggesting holding Plavix at this time due to hemoglobin drop. Repeat blood work reveals hemoglobin 7.6, platelet count 70, wbc's 6. Sodium 131, potassium 4, chloride 102, CO2 23, BUN 22 and creatinine 1.23. Blood sugars are running between 157 and 276. Liver function tests are normal. 02/12: Patient remains in the intensive care unit. Repeat chest x-ray reveals no complication from chest tube removal. He has been afebrile, heart rate 100, blood pressure 106/75, pulse ox 95% on 2 L nasal cannula. He is reaching 500 ML's on incentive spirometry. Patient has had chest tubes, right IJ Cordis, Melvin catheter removed. Patient states he is feeling tired last night and did not sleep well because coughing kept him awake. He does complain of some chest pain with deep breathing. Melatonin has been added. Repeat blood work reveals WBC 7.1, hemoglobin 7.3, platelet count 81. Sodium 132, creatinine 1.05. Blood sugars are running between 176 and 261. Levemir increased to 35 units at bedtime, home dose is 40 units. HIT antibody was ordered yesterday. 02/13, patient remains in ICU, he is comfortable without any chest pain patient has flank pain since last night, no dysuria, no gross hematuria, most likely mus culoskeletal spasm. Patient has moved hemoglobin is 97.2 currently, electrolytes are okay except for sodium of 132, creatinine 0.9, glucose (between 187-220). We can increase glargine to 40 units, from a current dose of 35. Change NovoLog to 4 units 3 times a day breakfast lunch the night not ACHS iron studies to be done, lidocaine for the low back pain, and cyclobenzaprine when necessary. REVIEW OF SYSTEMS Constitutional: No fever, no chills, no night sweats. No weight change. Mild weakness fatigue and lethargy following his surgery and extubation. EENT: No headache. No blurred vision or double vision, no loss of vision. No loss of Hearing, no ringing in the ears, no dizziness. No nasal drainage or congestion. No epistaxis. No sore throat. Lungs: Denies shortness of breath. Positive cough nonproductive. Cardiovascular: Positive chest pain from his incision from his surgery no lower extremity edema no PND or orthopnea no palpitation pulse rate is running well and no major change in blood pressure currently. Abdominal: No abdominal pain. No nausea, vomiting. No diarrhea. No constipation. No bloody or tarry stools.. No loss of appetite. Genitourinary: No dysuria, increased frequency, urgency. No urinary retention, no urinary retention. Musculoskeletal: No myalgias. No muscle weakness, no gait dysfunction, no frequent falls. No back pain. No neck pain. Integumentary: Surgical wounds, no lesions. No rash or pruritus. No unusual bruising. No change in hair or nails. Neurologic: No aphasia. No facial droop. No change in mentation. No head injury. No headache. No paralysis. No paresthesia. Psychiatric: No depression. No anxiety. No mood swings. Endocrine: No abnormal blood sugars. No weight change. No excessive sweating or thirst. No cold intolerance. Objective - Vital Signs Vital signs: Vital Signs Temp 98.2 F 02/13/21 04:00 Pulse 99 02/13/21 04:00 Resp 20 02/13/21 04:00 BP 104/67 02/13/21 04:00 Pulse Ox 95 02/13/21 04:00 Intake & Output 02/12/21 02/13/21 02/13/21 18:59 06:59 18:59 Intake Total 280 Output Total 1100 700 Balance -820 -700 Weight 89.5 kg Intake: IV 180 .9 NS pressure bag 30 Lactated Ringers 1,000 ml 150 @ 20 mls/hr IV .Q24H KRISTIN Rx#:[id number] Intake, IV Titration 100 Amount Sodium Ferric Gluconat- 100 Sucrose 125 mg In Sodium Chloride 0.9% 100 ml @ 100 mls/hr IVPB DAILY KRISTIN Rx#:[id number] Output: Urine 800 700 Stool 300 Other: Voiding Method Urinal Urinal # Voids 0 ABP, PAP, CO, CI - Last Documented Arterial Blood Pressure 117/58 Pulmonary Artery Pressure 20/5 Cardiac Output 6.5 Cardiac Index 3.2 - Constitutional General appearance: Present: cooperative, no acute distress - EENT Eyes: Present: EOMI, PERRLA, dentition normal ENT: Present: NA/AT - Neck Neck: Present: normal ROM - Respiratory Respiratory: bilateral: CTA, negative: diminished, dullness - Cardiovascular Rhythm: regular Heart sounds: normal: S1, S2 Abnormal Heart Sounds: Absent: systolic murmur, diastolic murmur, rub, S3 Gallop, S4 Gallop, click, other - Gastrointestinal General gastrointestinal: Present: normal bowel sounds, soft - Integumentary Integumentary: Present: decreased turgor, normal - Musculoskeletal Musculoskeletal: Present: generalized weakness, strength equal bilaterally - Psychiatric Psychiatric: Present: A&O x's 3, appropriate affect - Labs CBC & Chem 7: 02/13/21 03:56 02/13/21 03:56 Labs: Abnormal Lab Results - Last 24 Hours (Table) 02/12/21 02/12/21 02/12/21 Range/Units 11:55 16:59 20:15 RBC (4.30-5.90) m/uL Hgb (13.0-17.5) gm/dL Hct (39.0-53.0) % Plt Count (150-450) k/uL Sodium (137-145) mmol/L Glucose (74-99) mg/dL POC Glucose (mg/dL) 206 H 201 H 220 H (75-99) mg/dL 02/13/21 02/13/21 02/13/21 Range/Units 03:56 03:56 06:22 RBC 2.19 L (4.30-5.90) m/uL Hgb 7.2 L (13.0-17.5) gm/dL Hct 21.0 L (39.0-53.0) % Plt Count 129 L D (150-450) k/uL Sodium 132 L (137-145) mmol/L Glucose 205 H (74-99) mg/dL POC Glucose (mg/dL) 187 H (75-99) mg/dL Assessment and Plan Plan: 1. CAD with multiple coronary artery disease post 4 vessel bypass surgery patient is doing well continue current management still in the ICU was extubated successfully. 2 history of atrial fibrillation: Post AtrialCure clip doing well so far pulse rates under control with no sign of A. fib. 3 type 2 diabetes: Has been on insulin and Tradjenta along with Trulicity, continue Levemir increased to 40 units at bedtime, continue NovoLog 4 units scheduled before meals only not at bedtime along with scale. 4 history of ulcerative colitis with multiple complication up till patient had s ubtotal colectomy and has been doing well since no sign of anemia or any active bleed. 5 history of hypertension. Continue Lopressor increased to 50 mg every 12 hours. 6 BPH: Remain on Proscar and Flomax watch for any urinary retention. 7 hyperlipidemia: Remain on atorvastatin 40 mg a day. 8 chronic diarrhea: Patient had short bowel syndrome along with lifelong history of colitis has been on Lomotil on as-needed basis. 9 chronic history of iron deficiency anemia: Remain on iron supplement daily. 10 severe GERD: Resume omeprazole at 20 mg daily. 11 history of sleep apnea: Has been using CPAP. 12 GI prophylaxis: Remain on omeprazole. CODE STATUS: Full code. Dr. Dhillon thank you very much for the consult if I can be any further help to please let me know. DISCHARGE PLAN Home with [facility]
[2021-02-13] MEDS ORDERED: INSULIN DETEMIR (LEVEMIR) 100 UNIT/ML SYR SQ SCH (21:00)
[2021-02-13 21:10] LABS: Glucose,Whole Blood 182 mg/dL (75-99)
[2021-02-13] MEDS: TAMSULOSIN 0.4 MG CAP.ER.24H PO SCH (21:20)
[2021-02-13] MEDS: FERROUS SULFATE 325 MG TAB PO SCH (21:20)
[2021-02-13] MEDS: ATORVASTATIN 40 MG TAB PO SCH (21:21)
[2021-02-13] MEDS: LIDOCAINE 4% CREAM 5 GM TUBE TOPICAL SCH (21:21)
[2021-02-13] MEDS: CYCLOBENZAPRINE 5 MG TAB PO PRN (22:22)
[2021-02-14 03:46] LABS: HCT 21.3 % (39.0-53.0); HGB 7.4 gm/dL (13.0-17.5); MCH 33.6 pg (25.0-35.0); MCHC 34.5 g/dL (31.0-37.0); MCV 97.4 fL (80.0-100.0); Mean Platelet Volume 9.5; Platelet Count 150 k/uL (150-450); RBC 2.19 m/uL (4.30-5.90); RDW 15.2 % (11.5-15.5)
[2021-02-14 04:03] LABS: African American GFR (CKD) >90 (>60 ml/min/1.73 sqM); Anion Gap 8 mmol/L; Blood Urea Nitrogen 20 mg/dL (9-20); Carbon Dioxide 26 mmol/L (22-30); Chloride 101 mmol/L (98-107); Glucose 138 mg/dL (74-99); Magnesium 2.1 mg/dL (1.6-2.3); Non-African American GFR(CKD) 79 (>60 ml/min/1.73 sqM); Potassium 4.2 mmol/L (3.5-5.1); Sodium 135 mmol/L (137-145)
[2021-02-14 04:24] VITALS: TEMP 98.2
--- NOTE | 2021-02-14 06:01 | P.PN ---
Subjective Progress Note Date: 02/14/21 Principal diagnosis: Coronary artery disease and status post CABG This is a very pleasant 70-year-old gentleman who was admitted to the hospital and underwent elective CABG 4 with ABBOTT to LAD and vein graft to diagonal and also vein graft to PDA and PLV. The patient was seen this morning. He is definitely doing better clinically. He denies any symptoms. He has been maintaining normal sinus mechanism and the heart rate has improved as well as ectopy after the dose of metoprolol was increased yesterday. Beside that the hemoglobin is a stable and the platelet number has improved as well. Objective - Vital Signs Vital signs: Vital Signs Temp 98.2 F 02/14/21 04:00 Pulse 94 02/14/21 04:00 Resp 18 02/14/21 04:00 BP 104/66 02/14/21 04:00 Pulse Ox 94 L 02/14/21 04:00 Intake & Output 02/13/21 02/13/21 02/14/21 06:59 18:59 06:59 Intake Total 400 Output Total 700 950 250 Balance -700 -550 -250 Weight 89.5 kg 92.9 kg Intake: Oral 400 Output: Urine 700 350 250 Stool 600 Other: Voiding Method Urinal Urinal Urinal # Voids 1 # Bowel Movements 2 ABP, PAP, CO, CI - Last Documented Arterial Blood Pressure 117/58 Pulmonary Artery Pressure 20/5 Cardiac Output 6.5 Cardiac Index 3.2 - Constitutional General appearance: Present: no acute distress - Respiratory Respiratory: bilateral: diminished - Cardiovascular Rhythm: regular - Labs CBC & Chem 7: 02/14/21 03:27 02/14/21 03:27 Labs: Abnormal Lab Results - Last 24 Hours (Table) 02/13/21 02/13/21 02/13/21 Range/Units 06:22 11:19 16:41 RBC (4.30-5.90) m/uL Hgb (13.0-17.5) gm/dL Hct (39.0-53.0) % Sodium (137-145) mmol/L Glucose (74-99) mg/dL POC Glucose (mg/dL) 187 H 187 H 221 H (75-99) mg/dL 02/13/21 02/14/21 02/14/21 Range/Units 21:08 03:27 03:27 RBC 2.19 L (4.30-5.90) m/uL Hgb 7.4 L (13.0-17.5) gm/dL Hct 21.3 L (39.0-53.0) % Sodium 135 L (137-145) mmol/L Glucose 138 H (74-99) mg/dL POC Glucose (mg/dL) 182 H (75-99) mg/dL Assessment and Plan Assessment: Assessment #1 coronary artery disease and status post CABG #2 multiple comorbid conditions including diabetes and hypertension and dysli pidemia #3 history of CVA Plan #1 continue the current medical regimen #2 continue monitor the platelet as well as hemoglobin #3 the patient can be transferred out of the ICU
[2021-02-14 06:55] LABS: Glucose,Whole Blood 148 mg/dL (75-99)
[2021-02-14] MEDS: PANTOPRAZOLE 40 MG TABLET PO SCH (06:58)
[2021-02-14] MEDS: INSULIN ASPART (NovoLOG) 100 UNIT/ML VIAL SQ SCH ×2 (06:58→06:59)
--- NOTE | 2021-02-14 07:38 | XR ---
EXAMINATION TYPE: XR chest 2V DATE OF EXAM: 02/14/2021 COMPARISON: Chest radiograph February 11, 2021 HISTORY: Status post cardiac surgery. TECHNIQUE: Frontal and lateral views of the chest are obtained. FINDINGS: Median sternotomy wires. Left atrial appendage clip. The cardiomediastinal silhouette is stable. Pulmonary vasculature is within normal limits. Opacification at the medial left base. Blunting of the bilateral costophrenic angles. No pneumothorax . IMPRESSION: Small bilateral effusions and atelectasis/airspace disease at the medial left base.
[2021-02-14] MEDS: ASCORBIC ACID 500 MG TAB PO SCH (08:04)
[2021-02-14] MEDS: MULTIVITAMINS, THERA 1 EACH TAB PO SCH (08:04)
[2021-02-14] MEDS: METOPROLOL TARTRATE 25 MG TAB PO SCH (08:04)
[2021-02-14] MEDS: ASPIRIN 81 MG PO SCH (08:04)
[2021-02-14] MEDS: CLOPIDOGREL 75 MG TAB PO SCH (08:04)
[2021-02-14] MEDS: CHOLECALCIFEROL 25 MCG (1000 IU) TABLET PO SCH (08:04)
[2021-02-14] MEDS: DULoxetine HCL 30 MG CAPSULE.DR PO SCH (08:05)
[2021-02-14] MEDS: FONDAPARINUX 2.5 MG/0.5 ML SYRINGE SQ SCH (08:05)
[2021-02-14] MEDS: FINASTERIDE 5 MG TAB PO SCH (08:05)
[2021-02-14] MEDS: LIDOCAINE 4% CREAM 5 GM TUBE TOPICAL SCH (08:05)
[2021-02-14] MEDS: IPRATROPIUM-ALBUTEROL 3 ML NEB INHALATION SCH (08:09)
[2021-02-14 08:25] VITALS: BP 117/69; PULSE 101; RESP 15
--- NOTE | 2021-02-14 08:36 | P.PN ---
Subjective Progress Note Date: 02/14/21 Principal diagnosis: Coronary artery disease with left main disease. Previous medical history of hypertension, hyperlipidemia, insulin-dependent diabetes, CVA in 2015 and 2018 without residual deficits, previous tobacco dependence, obstructive sleep apnea with home CPAP use, history of GI bleed, ulcerative colitis with colectomy and ileostomy pouch placement, remote history of pneumonia, preoperative thrombocytopenia, and family history of premature coronary artery disease. Vaccinated against coated with Moderna vaccine POD #5 off-pump coronary artery bypass graft 4 with left internal mammary artery to the left anterior descending artery, reverse saphenous vein graft from the left internal mammary artery to the high diagonal, sequential vein graft to the PDA and SANDRA. Epi-aortic ultrasound. Ligation of the left atrial appendage with a 35 mm AtriCure clip. Endovascular vein harvest of the right greater saphenous vein from the mid calf to the groin Postoperative acute blood loss anemia and thrombocytopenia, expected given the hemodilution and preoperative thrombocytopenia The patient's currently sitting up in bed in the intensive care unit in no acute distress. States pain is controlled on current medication regimen, denies shortness of breath. Does complain of some right flank pain which is not at all like previous kidney stones, lidocaine cream and Flexeril ordered yesterday by primary which patient states helps with his pain. Currently in normal sinus rhythm, hemodynamically stable. Attempting incentive spirometry use and achieving 1000 mL. Oxygenating in the mid 90s on room air. Urine output adequate. Hemaglobin stable 7.4, platelet 150,000, HIT panel negative. He has ambulated in the hallway several times with assistance, has showered the last 2 days, denies any weakness or dizziness. Transfer orders placed yesterday for 3 S. cardiac stepdown unit, no beds available. No other new concerns, patient states he wants to go home today Objective - Vital Signs Vital signs: Vital Signs Temp 98.2 F 02/14/21 08:00 Pulse 101 H 02/14/21 08:00 Resp 15 02/14/21 08:00 BP 117/69 02/14/21 08:00 Pulse Ox 96 02/14/21 08:00 Intake & Output 02/13/21 02/14/21 02/14/21 18:59 06:59 18:59 Intake Total 400 Output Total 950 450 Balance -550 -450 Weight 92.9 kg 88.3 kg Intake: Oral 400 Output: Urine 350 450 Stool 600 Other: Voiding Method Urinal Urinal # Voids 1 # Bowel Movements 2 ABP, PAP, CO, CI - Last Documented Arterial Blood Pressure 117/58 Pulmonary Artery Pressure 20/5 Cardiac Output 6.5 Cardiac Index 3.2 - Exam CONSTITUTIONAL: Appears comfortable, cooperative, no acute distress RESPIRATORY: Lungs sounds diminished bilaterally. Respirations even, nonlabored. Currently on room air with oxygen saturation 94%. Able to achieve 1000 mL on incentive spirometry. Strong cough. CARDIOVASCULAR: S1, S2 present. Regular rate and rhythm, sinus rhythm on telemetry with heart rate in the high 90s. Sternum stable. Palpable peripheral pulses bilaterally. Trace right lower extremity edema remains, common for the leg with vein removal. No calf pain or tenderness noted. Heart hugger in place with patient demonstrating appropriate use. Antiembolism stockings, SCDs present. GASTROINTESTINAL: Abdomen soft, nontender, nondistended. Active bowel sounds present 4 quadrants. Tolerating diet. Positive stool in right sided ileostomy GENITOURINARY: Continues to void 200-350 mL at a time. INTEGUMENTARY: Skin is warm and dry with evidence of good perfusion. Anterior chest incision well approximated. Right lower extremity EVH site well approximated, eccymotic NEUROLOGIC: Cranial nerves II through XII intact MUSKULOSKELETAL: Able to move all extremities, strength equal bilaterally PSYCHIATRIC: Alert and oriented to person place and time, appropriate affect, intact judgment and insight - Allied health notes Allied health notes reviewed: nursing - Labs CBC & Chem 7: 02/14/21 03:27 02/14/21 03:27 Labs: Abnormal Lab Results - Last 24 Hours (Table) 02/13/21 02/13/21 02/13/21 Range/Units 11:19 16:41 21:08 RBC (4.30-5.90) m/uL Hgb (13.0-17.5) gm/dL Hct (39.0-53.0) % Sodium (137-145) mmol/L Glucose (74-99) mg/dL POC Glucose (mg/dL) 187 H 221 H 182 H (75-99) mg/dL 02/14/21 02/14/21 02/14/21 Range/Units 03:27 03:27 06:54 RBC 2.19 L (4.30-5.90) m/uL Hgb 7.4 L (13.0-17.5) gm/dL Hct 21.3 L (39.0-53.0) % Sodium 135 L (137-145) mmol/L Glucose 138 H (74-99) mg/dL POC Glucose (mg/dL) 148 H (75-99) mg/dL - Imaging and Cardiology Chest x-ray: report reviewed, image reviewed Assessment and Plan Assessment: 1. Coronary artery disease with left main disease, status post off-pump three- vessel CABG 2. History of hypertension 3. Hyperlipidemia, treated, cholesterol 83, LDL 8 4. Insulin-dependent diabetes, uncontrolled with hyperglycemia, preop hemoglobin A1c 8.6% 5. CVA in 2015 and 2018 without residual deficits 6. Previous tobacco dependence, preoperative FEV1 89% of predicted 7. Ostructive sleep apnea with home CPAP use 8. History of GI bleed 9. Ulcerative colitis with colectomy and ileostomy pouch placement 10. Remote history of pneumonia 11. Preoperative thrombocytopenia 12. Family history of premature coronary artery disease. 13. Postoperative acute blood loss anemia and thrombocytopenia, expected Plan: 1. Continue low-dose aspirin, statin, Plavix, beta oscar therapy. 2. Encourage incentive spirometry 10 times every hour while awake. Bronchodilators per pulmonology 3. Increase activity, ambulate as tolerated. PT/OT/cardiac rehab following 4. Will monitor daily labs and x-rays. Electrolyte replacement per protocol. No transfusion today. No Lasix 5. GI/DVT prophylaxis. HIT panel negative. 6. Pain control with current medication regimen. 7. Insulin management per primary care service. Patient needs tight blood sugar control to promote sternal union and prevent infection. 8. Strict accurate intake and output. Daily weights 9. Discharge planning in progress. Anticipate discharge to home with home care today Time with Patient: Greater than 30
[2021-02-14] MEDS: CYCLOBENZAPRINE 5 MG TAB PO PRN (08:39)
--- NOTE | 2021-02-14 09:16 | P.DS ---
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 Coronary artery disease with left main disease 2. History of hypertension 3. Hyperlipidemia, treated, cholesterol 83, LDL 8 4. Insulin-dependent diabetes, uncontrolled with hyperglycemia, preop hemoglobin A1c 8.6% 5. CVA in 2015 in 2018 without residual deficits 6. Previous tobacco dependence, preoperative FEV1 89% of predicted 7. Obstructive sleep apnea with home CPAP use 8. History of GI bleed 9. Ulcerative colitis with colectomy and ileostomy pouch placement 10. Remote history of pneumonia 11. Preoperative thrombocytopenia 12. Family history of premature coronary artery disease 13. Postoperative acute blood loss anemia and thrombocytopenia, expected PRINCIPAL PROCEDURE: 1. Off-pump coronary artery bypass graft 4 with left internal mammary artery to the left anterior descending artery, reverse saphenous vein graft from the left internal mammary artery to the high diagonal, sequential vein graft to the PDA and SANDRA 2. Epi-aortic ultrasound 3. Ligation of the left atrial appendage with a 35 mm AtriCure clip 4. Endovascular vein harvest of the right greater saphenous vein from the mid calf to the groin HISTORY OF PRESENT ILLNESS: This is a 70-year-old active gentleman who follows on an outpatient basis with Dr. Bautista for primary care and Dr. Gaitan for cardiology. Recently he has been experiencing feelings of fatigue while doing yardwork as well as an episode of presyncope, shortness of breath, and diaphoresis. His symptoms are relieved with rest. He has continued to deny any chest pain or pressure or any other symptomatology. He presented for examination to Dr. Gaitan, transthoracic echocardiogram was completed which demonstrated severe hypokinesia of the mid to distal anterior septal wall and adjoining apex with ejection fraction 40%, moderate concentric left ventricular hypertrophy. He was recommended to undergo heart catheterization which demonstrated 60-70% stenosis to the left main coronary artery, 80% stenosis to the mid left anterior descending coronary artery, 40% stenosis of the proximal LAD, and 80% stenosis to the PLV branch of the right coronary artery. The patient was referred to Dr. Dhillon from cardiothoracic surgery. He was recommended to undergo off-pump coronary artery bypass surgery. The usual perioperative course was discussed in detail with the patient and his family, all risks and benefits were explained, all questions were answered, and consent was obtained to proceed with surgery. The patient was scheduled for surgery at the earliest possible date. HOSPITAL COURSE: The patient was brought to the hospital on 02/09/2021, taken to the preoperative area, prepared in the usual fashion, and subsequently taken to the operating room where Dr. Dhillon performed four-vessel off-pump CABG. Upon completion of surgery the patient was transferred to the cardiovascular intensive care unit where he was recovered and monitored hemodynamically. He was extubated, all lines, tubes, and drips were discontinued when appropriate, and transfer orders were placed for 3 S. cardiac stepdown unit, however there was no bed availability and the patient remained on ICU as a stepdown patient until discharge. His oxygen was titrated down, he continued to work with physical and occupational therapy, he was tolerating oral diet, his pain was controlled, and he was ready to be discharged to home with [facility] care on postoperative day #5. He received written and verbal instruction regarding his medications, activity restrictions, signs and symptoms requiring physician notification, and follow-up appointments. Patient Condition at Discharge: Stable Plan - Discharge Summary Discharge Rx Participant: Yes New Discharge Prescriptions: New Acetaminophen Tab [Tylenol] 650 mg PO Q4HR PRN tab PRN Reason: Fever And/ Or Pain Cyclobenzaprine [Flexeril] 5 mg PO TID PRN #90 tab PRN Reason: Muscle Spasm Lidocaine 4% Cream [Lmx 4] 1 applic TOPICAL TID Metoprolol Tartrate [Lopressor] 75 mg PO BID #120 tab Melatonin 5 mg PO HS PRN tablet PRN Reason: Insomnia Clopidogrel [Plavix] 75 mg PO DAILY #30 tab Continue Multivit-Min/FA/Lycopen/Lutein [Centrum Silver Men Tablet] 1 cap PO DAILY DULoxetine HCL [Cymbalta] 90 mg PO DAILY Trospium Chloride [Sanctura] 20 mg PO BID Tamsulosin [Flomax] 0.4 mg PO HS Finasteride [Proscar] 5 mg PO DAILY Atorvastatin [Lipitor] 40 mg PO HS Cholecalciferol [Vitamin D3 (25 Mcg = 1000 Iu)] 1,000 unit PO DAILY Ferrous Sulfate [Iron (65 MG Elemental)] 25 mg PO HS Omeprazole 40 mg PO DAILY Cranberry Fruit Extract [Cranberry] 450 mg PO DAILY #0 Ascorbic Acid [Vitamin C] 1,000 mg PO DAILY Loratadine [Claritin] 10 mg PO DAILY Turmeric Root Extract [Turmeric] 1,000 mg PO BID Dulaglutide [Trulicity] 1.5 mg SQ TH Aspirin 81 mg PO DAILY Changed Insulin Glargine,Hum.rec.anlog [Basaglar Kwikpen U-100] 40 unit SQ HS #0 INSULIN LISPRO (HumaLOG) [humaLOG] 4 units SQ TID-W/MEALS #0 Discontinued Metoprolol Succinate (ER) [Toprol XL] 50 mg PO QAM Guar Gum (Unknown Strength) 2 tab PO BID@0200,1400 Discharge Medication List Atorvastatin [Lipitor] 40 mg PO HS 02/06/17 [History] DULoxetine HCL [Cymbalta] 90 mg PO DAILY 02/06/17 [History] Finasteride [Proscar] 5 mg PO DAILY 02/06/17 [History] Multivit-Min/FA/Lycopen/Lutein [Centrum Silver Men Tablet] 1 cap PO DAILY 02/06/17 [History] Tamsulosin [Flomax] 0.4 mg PO HS 02/06/17 [History] Trospium Chloride [Sanctura] 20 mg PO BID 02/06/17 [History] Cholecalciferol [Vitamin D3 (25 Mcg = 1000 Iu)] 1,000 unit PO DAILY 11/19/17 [History] Ferrous Sulfate [Iron (65 MG Elemental)] 25 mg PO HS 12/18/17 [History] Omeprazole 40 mg PO DAILY 12/05/18 [History] Ascorbic Acid [Vitamin C] 1,000 mg PO DAILY 08/29/20 [History] Cranberry Fruit Extract [Cranberry] 450 mg PO DAILY #0 08/29/20 [History] Loratadine [Claritin] 10 mg PO DAILY 08/29/20 [History] Turmeric Root Extract [Turmeric] 1,000 mg PO BID 08/29/20 [History] Dulaglutide [Trulicity] 1.5 mg SQ TH 02/01/21 [History] Aspirin 81 mg PO DAILY 02/08/21 [History] Acetaminophen Tab [Tylenol] 650 mg PO Q4HR PRN tab 02/14/21 [Rx] Clopidogrel [Plavix] 75 mg PO DAILY #30 tab 02/14/21 [Rx] Cyclobenzaprine [Flexeril] 5 mg PO TID PRN #90 tab 02/14/21 [Rx] INSULIN LISPRO (HumaLOG) [humaLOG] 4 units SQ TID-W/MEALS #0 02/14/21 [Rx] Insulin Glargine,Hum.rec.anlog [Basaglar Kwikpen U-100] 40 unit SQ HS #0 02/14/21 [Rx] Lidocaine 4% Cream [Lmx 4] 1 applic TOPICAL TID 02/14/21 [Rx] Melatonin 5 mg PO HS PRN tablet 02/14/21 [Rx] Metoprolol Tartrate [Lopressor] 75 mg PO BID #120 tab 02/14/21 [Rx] Follow up Appointment(s)/Referral(s): Kareen Mtz NPC [Nurse Practitioner] - 02/19/21 11:00 am (Come to the surgeon's office after appointment with Dr. Gaitan to see Kareen) Nadeen Gaitan MD [STAFF PHYSICIAN] - 02/19/21 9:15 am () [facility],Cardiac [NON-STAFF] - 4 Weeks (You will be called in 4-6 weeks for evaluation for cardiac rehab) Miguel Bautista MD [Primary Care Provider] - 02/25/21 1:30 pm (Appointment will be with Nurse Practitioner Maryann) Ajay Dhillon MD [STAFF PHYSICIAN] - 03/11/21 1:00 pm Rinku Henley DO [Doctor of Osteopathic Medicine] - 03/11/21 1:45 pm [facility], [NON-STAFF] - 1-2 Days Priya Don MD [STAFF PHYSICIAN] - 1 Week Ambulatory/Diagnostic Orders: Complete Blood Count w/diff [LAB.AMB] Time Frame: 3 Days, Location: None Selected Comprehensive Metabolic Panel [LAB.AMB] Time Frame: 3 Days, Location: None Selected Magnesium [LAB.AMB] Time Frame: 3 Days, Location: None Selected Activity/Diet/Wound Care/Special Instructions: DISCHARGE INSTRUCTIONS: 1. No driving for 4 weeks, or until physician gives their ok. 2. The patient should sleep in their own bed, no medical bed needed. 3. Stairs are not an issue. If the bedroom is upstairs, it is advised that the patient go up at night and down in the morning for the first week. Go slowly, using handrail and take 1 step at a time. 4. BRADEN hose are to be worn for 30 days or until physician discontinues. 5. Heart hugger is to be worn 100% of the time until physician discontinues.(except when showering) 6. No lifting, pushing, or pulling more than 10 pounds for 12 weeks. The physician will advise of any restriction changes. 7. The patient is expected to continue the prescribed walking program. 8. Continue pain control per as needed orders. 9. Continue with incentive spirometry and splinting/heart hugger until otherwise directed by the physician. 10. Must shower daily using liquid antibacterial soap and a separate white washcloth for each individual incision. 11. Routine sternal incision care. No powders, lotions, ointments on incisions. No dressings are necessary on incisions unless they are draining. Dermabond tape is to remain on sternal incision until surgeon follow-up. 12. Please call surgeon/MACHINE TOOL ELECTRICIAN for temp greater than 101 F or purulent drainage from incisions. 13. All prescriptions given by surgeon for 30 days. Refills need to be filled through enrichment teacher/primary care physician. 14. A Red armband has been placed on the patient. It should be worn for 30 days post surgery and will be removed by the cardiac surgeons. If an ER visit is necessary, please make sure the number on the Red armband is called. 15. You have been referred to and are expected to begin Cardiac Rehab in approximately 4-6 weeks. 16. You should keep a log of your blood sugars and bring with you to your appointment with Dr. Bautista as well as follow up with Dr. Don [facility] TO PROVIDE: RN SKILLED HOME CARE SERVICES FOR POST-OP SURGICAL PATIENTS WITH THE FOLLOWING: Coronary Artery Bypass Surgery (CABG), Mitral Valve Replacement/Repair ( MVR), Aortic Valve Replacement/Repair (AVR) RN TO CONTINUE EDUCATION FROM ``ROAD TO A HEALTH HEART PATIENT EDUCATION MANUAL (GIVEN TO PATIENT IN THE HOSPITAL) MEDICATION RECONCILIATION WITH EDUCATION NEEDED ON FIRST HOME VISIT EMPHASIZE IMPORTANCE OF WEARING BREAST SUPPORT/HEART HUGGER ENCOURAGE USE OF INCENTIVE SPIROMETER 10 X EVERY HOUR WHILE AWAKE ENCOURAGE UTILIZATION OF LOWER EXTREMITY COMPRESSION STOCKINGS/BRADEN HOSE and ELEVATE LEGS ABOVE LEVEL OF HEART WHILE AT REST. ENCOURAGE AMBULATION 3-5x/day INCREASING TOLERATES, WHILE AVOIDING EXTREMES IN TEMPERATURE FREQUENCY: RN TO OPEN THE PATIENT WITHIN 24 HOURS OF DISCHARGE FROM THE HOSPITAL WITH TELEHEALTH INSTALLED AT [facility] [place], RN TO VISIT 2-3 X A WEEK FOR 4 WEEKS ESTABLISHED BY PATIENT NEEDS. LABORATORY: CBC, CMP TO BE DRAWN ON THE THIRD DAY HOME, (RAN STAT) FAX RESULTS TO [phone]. TELEHEALTH PARAMETERS: WEIGHT: NOTIFY MD OF WEIGHT GAIN OF 2 LBS IN 24 HOURS OR 5 LBS IN ONE WEEK HR: NOTIFY MD OF HR <55 BPM OR HR>100 BPM BP: NOTIFY MD IF BP <90/55 OR BP>140/100 O2 SAT: NOTIFY MD IF PO2<93% ON ROOM AIR SEND TELEHEALTH REPORT TO SENIOR INSTRUCTIONAL DESIGNER AND CARDIOVASCULAR SURGEON THE FIRST WEEK OF CARE AND THEN BI-WEEKLY. PLEASE ADDITIONALLY COMMUNICATE ANY ABNORMALS AND NEW FINDINGS TO THE SURGEONS OFFICE. Discharge Disposition: HOME WITH HOME HEALTH SERVICES
[2021-02-14 09:39] LABS: Iron 43 ug/dL (65-175); Total Iron Binding Capacity 250 ug/dL (228-460)
--- NOTE | 2021-02-14 11:15 | P.PN ---
Subjective Progress Note Date: 02/14/21 Principal diagnosis: Coronary artery disease status post coronary artery bypass grafting This is a 70-year-old white male of Dr. Bautista, with past medical history of hypertension, hyperlipidemia, diabetes mellitus2 on insulin, ulcerative colitis with history of colectomy and ileostomy placement, obstructive sleep apnea on home CPAP, family history of early onset coronary artery disease, history of 2 previous CVA in 2015 and 2018, with residual left-sided weakness. Patient was recently hospitalized when she came in for evaluation cough with fatigue, shortness of breath, and diaphoresis. Patient had a cardiac catheterization on 02/03/2021 which demonstrated a 60-70% stenosis of his left main coronary artery, 80% stenosis to his mid LAD, 40% stenosis to his proximal LAD, 80% stenosis to his PLV branch of the right coronary artery. Outpatient echocardiogram showed severe hypokinesia of the mid to distal anterior septal wall and adjoining apex with an ejection fraction of 40% and moderate concentric LVH. Patient was referred to cardiothoracic surgery for surgical intervention. FEV1 was completed showing a predicted value of 89% of predicted with a volume of 2.61 L. On 02/09/2021. Patient underwent off-pump CABG 4 with ABBOTT to the LAD, vein graft ABBOTT to high diagonal, sequential vein graft to PDA and SANDRA, appendectomy aortic ultrasound, and ligation of the left atrial appendage with a 35 mm AtriCure clip. Postoperative chest x-ray showed endotracheal tube, NG tube, left chest, right IJ Cordis, [place] catheter, and mediastinal chest tube in appropriate position. Subsegmental basilar atelectatic changes were present, there was no sizable pneumothorax or pleural effusion. Postoperative blood gas showed pO2 of 397, pCO2 40, and pH 7.30. Stop her blood work has been reviewed, Levoxyl, was 10.5, hemoglobin is 10.5, INR is 1.2, sodium is 138, po tassium is 4.2, chloride is 109, CO2 is 21, BUN is 27, creatinine 0.95. Hemodynamically patient has been stable. He was successfully weaned and extubated within 5 hours of OR exit time. This morning he seen in intensive care unit. He is awake and alert, oriented 3, he sitting up in a recliner, he is on 2 L of oxygen pulse ox of 97%, he is on lactated Ringer's at 30 mL an hour, insulin infusion is at 4 units per hour, no other drips. Hemodynamically he is stable, in sinus mechanism with a rate of 89. His PEEP pressure is 20 over 4. CVP is 1, he received 15% albumin. Cardiac output is 4.6 and cardiac index is 2.2. He is breathing comfortably, he is working on her incentive spirometer, 1 mediastinal and left pleural chest tube connected together, with a total of 600 mL of thin serosanguineous output since surgery. No air leak. Today's chest x-ray shows interval extubation, and probable atelectasis. Today's blood work was reviewed, hemoglobin is 10.7, white blood cell count is 10.3, electrolytes and renal profile were unremarkable. On 02/11/2021 patient seen in follow-up in intensive care unit, today is postoperative day #2, status post off-pump CABG 4. Patient is doing well, sitting up in the recliner, he is on 3 L of oxygen, breathing comfortably socks is 98%. He is working on incentive spirometer, there is no other drips other than lactated Ringer's at 30 ML per hour, hemodynamically patient is stable, he is in sinus mechanism the rate is controlled. PA catheter was removed. He still has mediastinal and left pleural chest tube in place, with 480 mL of thin serosanguineous output in the last 24 hours. No evidence of air leak, today's chest x-ray showing interstitial edema, subsegmental basilar atelectatic changes. Patient denies any pain, denies any complaints. Midsternal incision, chest tube sites, right lower leg saphenous venous graft incision site clean dry and intact. His labs have been reviewed, we'll globin is 7.6, platelet count is 70. Sodium is 131, depressive electrolytes are within normal limits, BUN is 22, and creatinine is 1.23. On 02/12/2021 patient seen in follow-up in the intensive care unit, today's postoperative day #3, status post four-vessel off-pump CABG. Patient is doing very well, sitting up in the recliner, currently on 2 L of oxygen pulse ox 95%, incentive spirometer effort is 500 mL. His breathing comfortably, chest tubes have been discontinued, right IJ Cordis discontinued. He still has a line in place. Melvin catheter has been discontinued, and patient has been voiding. Is in -432 mL net fluid balance over the last 24 hours. Reports no acute events overnight, today's chest x-ray has been reviewed showing no thorax, there is some probable subsegmental basilar atelectatic changes. His labs have been noted. The patient is seen today 02/13/2021 in follow-up on the intensive care unit. Postoperative day #4. Status post coronary artery bypass grafting 4. He is currently sitting up in the recliner. Doing very well. No complaints. His pain is well controlled. He is maintaining good O2 saturations in the 90s on room air. No IV fluids running. Appetite is good. Working well with the i ncentive spirometer. Chest x-ray reveals minimal bilateral effusions left greater than right. Improving mild interstitial edema. Improving basilar atelectasis. White count 7.8. Hemoglobin 7.2. Platelet count 129. Sodium 132. Potassium 4.4. Creatinine 0.93. Glucose 187. The patient is seen today 02/14/2021 in follow-up in the intensive care unit. Postoperative day #5. He is currently sitting up in a chair at the bedside. Awake and alert in no acute distress. He is maintaining good O2 saturations in the 90s on room air. He is working well with the incentive spirometer. Chest x -ray shows small bilateral effusions with atelectasis at the left lung base. No IV fluids. White count 8.0. Hemoccult and 7.4. Sodium 135. Potassium 4.2. Creatinine 0.96. Glucose 138. He's been up ambulating with assistance. Objective - Vital Signs Vital signs: Vital Signs Temp 98.2 F 02/14/21 08:00 Pulse 101 H 02/14/21 08:00 Resp 15 02/14/21 08:00 BP 117/69 02/14/21 08:00 Pulse Ox 96 02/14/21 08:00 Intake & Output 02/13/21 02/14/21 02/14/21 18:59 06:59 18:59 Intake Total 400 Output Total 950 450 Balance -550 -450 Weight 92.9 kg 88.3 kg Intake: Oral 400 Output: Urine 350 450 Stool 600 Other: Voiding Method Urinal Urinal Urinal # Voids 1 # Bowel Movements 2 ABP, PAP, CO, CI - Last Documented Arterial Blood Pressure 117/58 Pulmonary Artery Pressure 20/5 Cardiac Output 6.5 Cardiac Index 3.2 - Exam GENERAL EXAM: Alert, very pleasant, 70-year-old male patient, on room air, comfortable in no apparent distress. HEAD: Normocephalic/atraumatic. EYES: Normal reaction of pupils, equal size. Conjunctiva pink, sclera white. NOSE: Clear with pink turbinates. THROAT: No erythema or exudates. NECK: No masses, no JVD, no thyroid enlargement, no adenopathy. CHEST: No chest wall deformity. Symmetrical expansion. Midsternal incision is clean dry and intact, Heart Hugger in place. LUNGS: Equal air entry with faint crackles in theleft base. CVS: Regular rate and rhythm, normal S1 and S2, no gallops, no murmurs, no rubs ABDOMEN: Soft, nontender. No hepatosplenomegaly, normal bowel sounds, no guarding or rigidity. EXTREMITIES: No clubbing, no edema, no cyanosis, 2+ pulses and upper and lower extremities. MUSCULOSKELETAL: Muscle strength and tone normal. SPINE: No scoliosis or deformity SKIN: No rashes, right lower leg incision is clean dry and intact CENTRAL NERVOUS SYSTEM: No focal deficits, tone is normal in all 4 extremities. PSYCHIATRIC: Alert and oriented -3. Appropriate affect. Intact judgment and insight. - Labs CBC & Chem 7: 02/14/21 03:27 02/14/21 03:27 Labs: Abnormal Lab Results - Last 24 Hours (Table) 02/13/21 02/13/21 02/13/21 Range/Units 11:19 16:41 21:08 RBC (4.30-5.90) m/uL Hgb (13.0-17.5) gm/dL Hct (39.0-53.0) % Sodium (137-145) mmol/L Glucose (74-99) mg/dL POC Glucose (mg/dL) 187 H 221 H 182 H (75-99) mg/dL Iron (65-175) ug/dL 02/14/21 02/14/21 02/14/21 Range/Units 03:27 03:27 06:54 RBC 2.19 L (4.30-5.90) m/uL Hgb 7.4 L (13.0-17.5) gm/dL Hct 21.3 L (39.0-53.0) % Sodium 135 L (137-145) mmol/L Glucose 138 H (74-99) mg/dL POC Glucose (mg/dL) 148 H (75-99) mg/dL Iron 43 L (65-175) ug/dL Assessment and Plan Assessment: 1 Coronary artery disease, symptomatic, status post CABG 4, with the ABBOTT to LAD, vein graft ABBOTT to high diagonal, sequential vein graft to PDA and SANDRA. Ligation of the left atrial appendage with a 35 mm AtriCure clip on 02/09/2021 2 Routine postop ventilator management, patient was successfully weaned and extubated on postoperative day #0, on 02/09/2021 within 5 hours of OR exit time. Currently on room air 3 Hypertension 4 Hyperlipidemia 5 Diabetes mellitus type 2 6 Family history of early onset coronary artery disease 7 Previous history of CVA 2 with residual left-sided weakness and balance issues 8 Ulcerative colitis, with history of bowel resection and ileostomy on 03/19/2018 9 Obstructive sleep apnea on home CPAP 10 Former smoker, with preop FEV1 value of 2.61 L 11 Osteoarthritis 12 Acute blood loss anemia, expected outcome of sternotomy, and coronary artery bypass grafting surgery. Plan: The patient was seen and evaluated by Dr. Henley Chest x-ray and labs reviewed Stable from the pulmonary standpoint Currently on room air and doing well Continue to utilize the incentive spirometer Plan is for home today Follow-up in the office in 1-2 weeks' I, the cosigning physician, performed a history & physical examination of the patient. Lungs sounds faint crackles in the left lung base. Maintaining good O2 saturations in the 90s on room air. I discussed the assessment and plan of care with my nurse practitioner, Carin Gonzalez. I attest to the above note as dictated by her.
== END 2021-02-14 11:10 | disposition home or self-care (01) | DRG 236 ==
LOC: 2ORMAIN 05:39 → 2SICU 13:13
PROVIDERS: ADMIT Thoracic Surgery (Cardiothoracic Vascular Surgery); ATTEND Thoracic Surgery (Cardiothoracic Vascular Surgery)
PROC: 02L70CK Occlusion of Left Atrial Appendage with Extraluminal Device, Open Approach (ICD-10-PCS; 2021-02-09)
PROC: 5A1935Z Respiratory Ventilation, Less than 24 Consecutive Hours (ICD-10-PCS; 2021-02-09)
PROC: 5A1221Z Performance of Cardiac Output, Continuous (ICD-10-PCS; 2021-02-09)
PROC: 5A1223Z Performance of Cardiac Pacing, Continuous (ICD-10-PCS; 2021-02-09)
PROC: B244ZZ4 Ultrasonography of Right Heart, Transesophageal (ICD-10-PCS; 2021-02-09)
PROC: 0W9C30Z Drainage of Mediastinum with Drainage Device, Percutaneous Approach (ICD-10-PCS; 2021-02-09)
PROC: 0W9B30Z Drainage of Left Pleural Cavity with Drainage Device, Percutaneous Approach (ICD-10-PCS; 2021-02-09)
PROC: 4A133B1 Monitoring of Arterial Pressure, Peripheral, Percutaneous Approach (ICD-10-PCS; 2021-02-09)
PROC: 4A133J1 Monitoring of Arterial Pulse, Peripheral, Percutaneous Approach (ICD-10-PCS; 2021-02-09)
PROC: 3E033XZ Introduction of Vasopressor into Peripheral Vein, Percutaneous Approach (ICD-10-PCS; 2021-02-09)
PROC: 4A033BC Measurement of Arterial Pressure, Coronary, Percutaneous Approach (ICD-10-PCS; 2021-02-09)
PROC: 02100Z9 Bypass Coronary Artery, One Artery from Left Internal Mammary, Open Approach (ICD-10-PCS; principal; 2021-02-09 08:00)
PROC: 021209W Bypass Coronary Artery, Three Arteries from Aorta with Autologous Venous Tissue, Open Approach (ICD-10-PCS; 2021-02-09 08:00)
PROC: 06BP4ZZ Excision of Right Saphenous Vein, Percutaneous Endoscopic Approach (ICD-10-PCS; 2021-02-09 08:00)
DX: I25.119 Atherosclerotic heart disease of native coronary artery with unspecified angina pectoris (principal); D62 Acute posthemorrhagic anemia; D68.9 Coagulation defect, unspecified; I69.354 Hemiplegia and hemiparesis following cerebral infarction affecting left non-dominant side; J90 Pleural effusion, not elsewhere classified; J98.11 Atelectasis; K51.90 Ulcerative colitis, unspecified, without complications; K91.2 Postsurgical malabsorption, not elsewhere classified; D69.6 Thrombocytopenia, unspecified; E11.65 Type 2 diabetes mellitus with hyperglycemia; E78.5 Hyperlipidemia, unspecified; G47.33 Obstructive sleep apnea (adult) (pediatric); H91.90 Unspecified hearing loss, unspecified ear; I69.328 Other speech and language deficits following cerebral infarction; I11.9 Hypertensive heart disease without heart failure; I48.91 Unspecified atrial fibrillation; I49.3 Ventricular premature depolarization; K21.9 Gastro-esophageal reflux disease without esophagitis; M19.90 Unspecified osteoarthritis, unspecified site; N40.0 Benign prostatic hyperplasia without lower urinary tract symptoms; Z79.02 Long term (current) use of antithrombotics/antiplatelets; Z79.82 Long term (current) use of aspirin; Z79.899 Other long term (current) drug therapy; Z87.01 Personal history of pneumonia (recurrent); Z87.442 Personal history of urinary calculi; Z87.891 Personal history of nicotine dependence; Z90.49 Acquired absence of other specified parts of digestive tract; Z93.2 Ileostomy status; Z96.1 Presence of intraocular lens; Z98.41 Cataract extraction status, right eye; Z98.42 Cataract extraction status, left eye; Z96.652 Presence of left artificial knee joint; Z87.19 Personal history of other diseases of the digestive system; Z86.59 Personal history of other mental and behavioral disorders
CPT/HCPCS: 36415; 71045; 71046; 80048; 80053; 82330; 82805; 83540; 83550; 83735; 85025; 85027; 85520; 85610; 85730; 86022; 86850; 86891; 86900; 86901; 86920; 94002; 94640

== ENCOUNTER 2021-02-15 19:25 | Observation (INO) | payer MEDICARE ==
[2021-02-15 20:51] LABS: Anisocytosis Slight; Basophils % (A) 0 %; Eosinophils # (A) 0.2 k/uL (0-0.7); Eosinophils % (A) 2 %; HCT 21.8 % (39.0-53.0); HGB 7.1 gm/dL (13.0-17.5); Hypochromasia Slight; Lymphocytes % (A) 11 %; MCH 32.5 pg (25.0-35.0); MCHC 32.8 g/dL (31.0-37.0); MCV 99.1 fL (80.0-100.0); Macrocytosis Slight; Mean Platelet Volume 9.5; Monocytes # (A) 0.6 k/uL (0-1.0); Monocytes % (A) 7 %; Neutrophils # (A) 7.5 k/uL (1.3-7.7); Neutrophils % (A) 78 %; Platelet Count 224 k/uL (150-450); Poikilocytosis Slight; RDW 16.6 % (11.5-15.5); WBC 9.6 k/uL (3.8-10.6)
[2021-02-15 21:01] LABS: ALT 20 U/L (4-49); AST 42 U/L (17-59); African American GFR (CKD) >90 (>60 ml/min/1.73 sqM); Albumin 3.4 g/dL (3.5-5.0); Alkaline Phosphatase 74 U/L (38-126); Anion Gap 7 mmol/L; Blood Urea Nitrogen 22 mg/dL (9-20); Calcium 8.8 mg/dL (8.4-10.2); Carbon Dioxide 25 mmol/L (22-30); Chloride 101 mmol/L (98-107); Glucose 209 mg/dL (74-99); Magnesium 2.1 mg/dL (1.6-2.3); Non-African American GFR(CKD) 80 (>60 ml/min/1.73 sqM); Potassium 4.2 mmol/L (3.5-5.1); Sodium 133 mmol/L (137-145); Total Bilirubin 1.2 mg/dL (0.2-1.3); Total Protein 5.7 g/dL (6.3-8.2)
[2021-02-15 21:12] LABS: INR 0.9 (<1.2); Partial Thromboplastin Time 22.4 sec (22.0-30.0)
--- NOTE | 2021-02-15 21:20 | ED ---
General Adult HPI - General Chief complaint: Dizziness Stated complaint: DIMITRI Time Seen by Provider: 02/15/21 19:44 Source: patient, EMS Mode of arrival: EMS Limitations: no limitations - History of Present Illness Initial comments: 70 year-old male patient who had quadruple bypass with Dr. Dhillon 6 days ago presents to the emergency department for evaluation of shortness of breath and weakness. States he gets dizzy whenever he stands up. States he is having episodes where it suddenly feels like he cannot breath and he is gasping for air. States it has happened several times today and seemed to be worsening. He did have elevated heart rate and was instructed to take an additional Metoprolol by Dr. Gaitan this afternoon. Patient denies any chest pain. Reports dry cough, no sputum production. States the weakness worsened to the point where he could barely stand this evening. He was discharged from the hospital yesterday and was doing much better then. He denies any fever or chills. Denies nausea, vomiting, or diarrhea. Denies any increased swelling to lower extremities. Patient denies any recent rash, constipation, back pain, numbness, tingling, dizziness, weakness, hematuria, dysuria, urinary urgency, urinary frequency, headache, visual changes, or any other complaints. - Related Data Home Medications Medication Instructions Recorded Confirmed Atorvastatin [Lipitor] 40 mg PO HS 02/06/17 02/15/21 DULoxetine HCL [Cymbalta] 60 mg PO DAILY 02/06/17 02/15/21 Finasteride [Proscar] 5 mg PO DAILY 02/06/17 02/15/21 Multivit-Min/FA/Lycopen/Lutein 1 cap PO DAILY 02/06/17 02/15/21 [Centrum Silver Men Tablet] Tamsulosin [Flomax] 0.4 mg PO HS 02/06/17 02/15/21 Trospium Chloride [Sanctura] 20 mg PO BID 02/06/17 02/15/21 Cholecalciferol [Vitamin D3 (25 1,000 unit PO DAILY 11/19/17 02/15/21 Mcg = 1000 Iu)] Ferrous Sulfate [Iron (65 MG 325 mg PO HS 12/18/17 02/15/21 Elemental)] Omeprazole 40 mg PO DAILY 12/05/18 02/15/21 Ascorbic Acid [Vitamin C] 1,000 mg PO DAILY 08/29/20 02/15/21 Cranberry Fruit Extract [Cranberry] 450 mg PO DAILY #0 08/29/20 02/15/21 Loratadine [Claritin] 10 mg PO DAILY 08/29/20 02/15/21 Turmeric Root Extract [Turmeric] 1,000 mg PO BID 08/29/20 02/15/21 Dulaglutide [Trulicity] 1.5 mg SQ TH 02/01/21 02/15/21 Aspirin 81 mg PO DAILY 02/08/21 02/15/21 DULoxetine HCL [Cymbalta] 30 mg PO DAILY 02/15/21 02/15/21 Previous Rx's Medication Instructions Recorded Acetaminophen Tab [Tylenol] 650 mg PO Q4HR PRN tab 02/14/21 Clopidogrel [Plavix] 75 mg PO DAILY #30 tab 02/14/21 Cyclobenzaprine [Flexeril] 5 mg PO TID PRN #90 tab 02/14/21 INSULIN LISPRO (HumaLOG) [humaLOG] 4 units SQ TID-W/MEALS #0 02/14/21 Insulin Glargine,Hum.rec.anlog 40 unit SQ HS #0 02/14/21 [Basaglar Kwikpen U-100] Lidocaine 4% Cream [Lmx 4] 1 applic TOPICAL TID 02/14/21 Melatonin 5 mg PO HS PRN tablet 02/14/21 Metoprolol Tartrate [Lopressor] 75 mg PO BID #120 tab 02/14/21 Allergies Allergy/AdvReac Type Severity Reaction Status Date / Time codeine Allergy Rash/Hives Verified 02/15/21 21:39 morphine Allergy Rash/Hives Verified 02/15/21 21:39 Review of Systems ROS Statement: Those systems with pertinent positive or pertinent negative responses have been documented in the HPI. ROS Other: All systems not noted in ROS Statement are negative. Past Medical History Past Medical History: Atrial Fibrillation, CVA/TIA, Diabetes Mellitus, Eye Disorder, Hearing Disorder / Deafness, Hyperlipidemia, Hypertension, Sleep Apnea/CPAP/BIPAP Additional Past Medical History / Comment(s): 05/2015 CVA and 08/2017, continues to have occasional balance issues. ., Ulcerative Colitis, hx kidney stone. BPH. illeostomy placed March 19, 2018 uses cpap at home for sleep apnea History of Any Multi-Drug Resistant Organisms: None Reported Past Surgical History: Appendectomy, Bowel Resection, Heart Catheterization, Hernia Repair, Joint Replacement Additional Past Surgical History / Comment(s): APPENDEX RUPTURE, HAD J pouch. Left partial knee replacement. COLONOSCOPY, bilateral cataract extraction with lens implants, mesh with hernia repair, exama, colectomy with ileostomy, quadrupal bypass, Past Anesthesia/Blood Transfusion Reactions: No Reported Reaction Additional Past Anesthesia/Blood Transfusion Reaction / Comment(s): PATIENT HAD SURGERY FOR LEFT EYE DETACHED RETINA AND DEVELOPED GAS BUBBLE IN L EYE. HE WAS INSTRUCTED TO NOT RECEIVE NITROUS OXIDE OR RIDE IN A PLANE UNTIL GAS BUBBLE IS GONE. Past Psychological History: Depression Smoking Status: Former smoker Past Alcohol Use History: Occasional, Rare Past Drug Use History: None Reported - Past Family History Mother Family Medical History: Cancer, Diabetes Mellitus Additional Family Medical History / Comment(s): Mother at age 84 from [place] Father Additional Family Medical History / Comment(s): Father is with history of coronary artery disease. Patient has 4 children that are healthy with no major medical problems. Brother(s) Additional Family Medical History / Comment(s): Patient has 4 brothers. Two at the age of 44 from coronary artery disease with history of tobacco use and alcohol dependence. One from aneurysm in the chest. General Exam Limitations: no limitations General appearance: alert, in no apparent distress, other (This is a well- developed, well-nourished elderly male patient in no acute distress. Vital signs upon presentation temperature 98.1F, pulse 88, respirations 18, blood pressure 114/70, pulse ox 98% on room air.) Eye exam: Present: normal appearance, PERRL, EOMI. Absent: scleral icterus, conjunctival injection, periorbital swelling ENT exam: Present: normal exam, normal oropharynx, mucous membranes moist Respiratory exam: Present: normal lung sounds bilaterally, other (Sternal incision is well approximated with surrounding ecchymosis.). Absent: respiratory distress, wheezes, rales, rhonchi, stridor Cardiovascular Exam: Present: regular rate, normal rhythm, normal heart sounds. Absent: systolic murmur, diastolic murmur, rubs, gallop, clicks GI/Abdominal exam: Present: soft, normal bowel sounds. Absent: distended, tenderness, guarding, rebound, rigid Extremities exam: Present: full ROM, normal capillary refill, other (Extensive ecchymosis, hematoma to the right medial groin and thigh, various stages of healing, yellow to purple in color. Mild generalized swelling. No calf tenderness. ). Absent: tenderness, pedal edema, joint swelling, calf tenderness Neurological exam: Present: alert, oriented X3, CN II-XII intact Psychiatric exam: Present: normal affect, normal mood Skin exam: Present: warm, dry, intact, normal color. Absent: rash Course Vital Signs 02/15/21 02/15/21 02/16/21 19:30 21:38 00:00 Temperature 98.1 F Pulse Rate 88 89 92 Respiratory 18 16 18 Rate Blood Pressure 114/70 116/83 116/83 O2 Sat by Pulse 98 96 Oximetry EKG Findings - EKG Comments: EKG Findings:: EKG obtained at 1955 shows normal sinus rhythm with a ventricular rate of 89, PA interval 204, QRS duration 88, QT 364, QTC 442. No evidence of ST elevation or depression. Medical Decision Making - Medical Decision Making 70-year-old male patient who is postop day #6 after having quadruple bypass with Dr. Dhillon here, presents for evaluation of shortness of breath episodes. Also reporting generalized weakness. Physical examination did reveal clear equal lung sounds. He did have right lower extremity swelling, large hematoma to the right medial thigh. Labs reviewed and did reveal hemoglobin of 7.1, sodium 133, BUN 22, glucose 209, lactic acid 2.6, troponin 0.218, BNP of 555. EKG showed sinus rhythm. Chest xray showed small left pleural effusion and atelectasis vs infiltrate on the left. He is afebrile with no elevated white blood cell count so atelectasis is favored. Dr. Gaitan was in to see the patient. He wanted 1 unit of packed red blood cells to be infused. 10mg Lasix IVP. And CT chest angio. CT chest angio showed mild biltaeral pleural effusions, mild ascending aortic aneurysm, and small pericardial effusion. I did discuss findings results with the patient. He'll be admitted to the hospital for further evaluation and monitoring. We'll consult Dr. Dhillon. He will have limited echo in the morning. Patient is agreeable this plan. Case has been discussed with my attending Dr. Cummins. - Lab Data Result diagrams: 02/15/21 20:31 02/15/21 20:31 Lab Results 02/15/21 02/15/21 02/15/21 Range/Units 20:05 20:31 20:31 WBC 9.6 (3.8-10.6) k/uL RBC 2.20 L (4.30-5.90) m/uL Hgb 7.1 L (13.0-17.5) gm/dL Hct 21.8 L (39.0-53.0) % MCV 99.1 (80.0-100.0) fL MCH 32.5 (25.0-35.0) pg MCHC 32.8 (31.0-37.0) g/dL RDW 16.6 H (11.5-15.5) % Plt Count 224 (150-450) k/uL MPV 9.5 Neutrophils % 78 % Lymphocytes % 11 % Monocytes % 7 % Eosinophils % 2 % Basophils % 0 % Neutrophils # 7.5 (1.3-7.7) k/uL Lymphocytes # 1.0 (1.0-4.8) k/uL Monocytes # 0.6 (0-1.0) k/uL Eosinophils # 0.2 (0-0.7) k/uL Basophils # 0.0 (0-0.2) k/uL Hypochromasia Slight Poikilocytosis Slight Anisocytosis Slight Macrocytosis Slight PT 10.0 (9.0-12.0) sec INR 0.9 (<1.2) APTT 22.4 (22.0-30.0) sec Sodium (137-145) mmol/L Potassium (3.5-5.1) mmol/L Chloride (98-107) mmol/L Carbon Dioxide (22-30) mmol/L Anion Gap mmol/L BUN (9-20) mg/dL Creatinine (0.66-1.25) mg/dL Est GFR (CKD-EPI)AfAm (>60 ml/min/1.73 sqM) Est GFR (CKD-EPI)NonAf (>60 ml/min/1.73 sqM) Glucose (74-99) mg/dL Lactic Ac Sepsis Rflx Plasma Lactic Acid Chris (0.7-2.0) mmol/L Calcium (8.4-10.2) mg/dL Magnesium (1.6-2.3) mg/dL Total Bilirubin (0.2-1.3) mg/dL AST (17-59) U/L ALT (4-49) U/L Alkaline Phosphatase (38-126) U/L Troponin I (0.000-0.034) ng/mL NT-Pro-B Natriuret Pep 555 pg/mL Total Protein (6.3-8.2) g/dL Albumin (3.5-5.0) g/dL Blood Type Blood Type Recheck Bld Type Recheck Status Antibody Screen Crossmatch Spec Expiration Date 02/15/21 02/15/21 02/15/21 Range/Units 20:31 20:31 20:31 WBC (3.8-10.6) k/uL RBC (4.30-5.90) m/uL Hgb (13.0-17.5) gm/dL Hct (39.0-53.0) % MCV (80.0-100.0) fL MCH (25.0-35.0) pg MCHC (31.0-37.0) g/dL RDW (11.5-15.5) % Plt Count (150-450) k/uL MPV Neutrophils % % Lymphocytes % % Monocytes % % Eosinophils % % Basophils % % Neutrophils # (1.3-7.7) k/uL Lymphocytes # (1.0-4.8) k/uL Monocytes # (0-1.0) k/uL Eosinophils # (0-0.7) k/uL Basophils # (0-0.2) k/uL Hypochromasia Poikilocytosis Anisocytosis Macrocytosis PT (9.0-12.0) sec INR (<1.2) APTT (22.0-30.0) sec Sodium 133 L (137-145) mmol/L Potassium 4.2 (3.5-5.1) mmol/L Chloride 101 (98-107) mmol/L Carbon Dioxide 25 (22-30) mmol/L Anion Gap 7 mmol/L BUN 22 H (9-20) mg/dL Creatinine 0.95 (0.66-1.25) mg/dL Est GFR (CKD-EPI)AfAm >90 (>60 ml/min/1.73 sqM) Est GFR (CKD-EPI)NonAf 80 (>60 ml/min/1.73 sqM) Glucose 209 H (74-99) mg/dL Lactic Ac Sepsis Rflx Plasma Lactic Acid Chris 2.6 H* (0.7-2.0) mmol/L Calcium 8.8 (8.4-10.2) mg/dL Magnesium 2.1 (1.6-2.3) mg/dL Total Bilirubin 1.2 (0.2-1.3) mg/dL AST 42 (17-59) U/L ALT 20 (4-49) U/L Alkaline Phosphatase 74 (38-126) U/L Troponin I 0.218 H* (0.000-0.034) ng/mL NT-Pro-B Natriuret Pep pg/mL Total Protein 5.7 L (6.3-8.2) g/dL Albumin 3.4 L (3.5-5.0) g/dL Blood Type Blood Type Recheck Bld Type Recheck Status Antibody Screen Crossmatch Spec Expiration Date 02/15/21 02/15/21 02/15/21 Range/Units 21:16 22:55 22:55 WBC (3.8-10.6) k/uL RBC (4.30-5.90) m/uL Hgb (13.0-17.5) gm/dL Hct (39.0-53.0) % MCV (80.0-100.0) fL MCH (25.0-35.0) pg MCHC (31.0-37.0) g/dL RDW (11.5-15.5) % Plt Count (150-450) k/uL MPV Neutrophils % % Lymphocytes % % Monocytes % % Eosinophils % % Basophils % % Neutrophils # (1.3-7.7) k/uL Lymphocytes # (1.0-4.8) k/uL Monocytes # (0-1.0) k/uL Eosinophils # (0-0.7) k/uL Basophils # (0-0.2) k/uL Hypochromasia Poikilocytosis Anisocytosis Macrocytosis PT (9.0-12.0) sec INR (<1.2) APTT (22.0-30.0) sec Sodium (137-145) mmol/L Potassium (3.5-5.1) mmol/L Chloride (98-107) mmol/L Carbon Dioxide (22-30) mmol/L Anion Gap mmol/L BUN (9-20) mg/dL Creatinine (0.66-1.25) mg/dL Est GFR (CKD-EPI)AfAm (>60 ml/min/1.73 sqM) Est GFR (CKD-EPI)NonAf (>60 ml/min/1.73 sqM) Glucose (74-99) mg/dL Lactic Ac Sepsis Rflx Y Plasma Lactic Acid Chris (0.7-2.0) mmol/L Calcium (8.4-10.2) mg/dL Magnesium (1.6-2.3) mg/dL Total Bilirubin (0.2-1.3) mg/dL AST (17-59) U/L ALT (4-49) U/L Alkaline Phosphatase (38-126) U/L Troponin I 0.213 H* (0.000-0.034) ng/mL NT-Pro-B Natriuret Pep pg/mL Total Protein (6.3-8.2) g/dL Albumin (3.5-5.0) g/dL Blood Type O Positive Blood Type Recheck O Pos Bld Type Recheck Status No Antibody Screen NEGATIVE Crossmatch See Detail Spec Expiration Date 02/18/2021 - 7676 - Radiology Data Radiology results: report reviewed, image reviewed CT chest angiography for PE was obtained. Report was reviewed in its entirety. Impression by Dr. Soto shows no evidence of pulmonary embolism. Mild aneurysm of the ascending aorta. Cardiomegaly with pleural effusions and basilar pulmonary infiltrate and atelectasis. This could relate to congestive heart failure. Mild pericardial effusion. Two-view x-ray of the chest is obtained. Report was reviewed in its entirety. Impression by Dr. Foreman shows small left pleural effusion with adjacent atelectasis and/or infiltrate. Slightly improved trace right pleural effusion. Disposition Clinical Impression: Shortness of breath, Hematoma of right thigh, Pleural effusion, left, Weakness Disposition: ADMITTED IP TO THIS [facility] Condition: Serious Decision to Admit Reason: Admit from EC Decision Date: 02/15/21 Decision Time: 22:57
--- NOTE | 2021-02-15 22:12 | XR ---
EXAMINATION TYPE: XR chest 2V DATE OF EXAM: 02/15/2021 COMPARISON: Chest radiograph most recently dated 02/14/2021 HISTORY: Difficulty breathing, shortness of breath TECHNIQUE: Frontal and lateral views of the chest are obtained. FINDINGS: Unchanged cardiomegaly. Small left pleural effusion with adjacent atelectasis and/or infiltrate. Trac e right pleural effusion. No pneumothorax. Multiple intact sternotomy wires and valve replacement are again seen. No acute osseous abnormality. IMPRESSION: Small left pleural effusion with adjacent atelectasis and/or infiltrate. Slightly improved trace righ t pleural effusion.
[2021-02-15] MEDS ORDERED: MELATONIN 3 MG TABLET PO STA (22:33)
[2021-02-15] MEDS ORDERED: FUROSEMIDE 10 MG/ML 2 ML VIAL IV ONE (22:33)
[2021-02-15] MEDS ORDERED: ONDANSETRON 4 MG/2 ML VIAL IVP PRN (22:53)
[2021-02-15] MEDS ORDERED: NALOXONE 0.4 MG/ML 1 ML VIAL IV PRN (22:53)
[2021-02-15] MEDS ORDERED: ACETAMINOPHEN TAB 325 MG TAB PO PRN (22:53)
[2021-02-15] MEDS ORDERED: SODIUM CHLORIDE 0.9% 1,000 ML IV SCH (23:00)
--- NOTE | 2021-02-16 00:06 | CT ---
EXAMINATION TYPE: None DATE OF EXAM: 02/15/2021 COMPARISON: None HISTORY: R/O PE CT DLP: 487.6 mGycm Automated exposure control for dose reduction was used. CONTRAST: Performed with IV Contrast, patient injected with 80 mL of Isovue 370. There are 3-D post processed images. Images obtained from the thoracic inlet to the diaphragm with IV contrast. Heart is enlarged. There is small pericardial effusion. There are bilateral pleural effusions. There is some linear infiltrate and atelectasis at both lung bases. Thoracic aorta is atheromatous. There is 4.27 mm aneurysm of the ascending aorta. There is no dissect ion. There is no evidence of filling defect in the pulmonary arteries. There are no hilar masses. The re is no mediastinal adenopathy. The thoracic spine is intact. There is no compression fracture. Ster num is intact. There are sternal wires. Upper abdominal soft tissues are intact. IMPRESSION: No evidence of pulmonary embolism. Mild aneurysm of the ascending aorta. Cardiomegaly with pleural effusions and basilar pulmonary infiltrate and atelectasis. This could rela te to congestive heart failure. Mild pericardial effusion.
[2021-02-16] MEDS ORDERED: ACETAMINOPHEN TAB 325 MG TAB PO PRN (07:27)
[2021-02-16] MEDS ORDERED: CYCLOBENZAPRINE 5 MG TAB PO PRN (07:27)
[2021-02-16 07:52] LABS: Glucose,Whole Blood 168 mg/dL (75-99)
[2021-02-16 08:25] LABS: Anisocytosis Slight; Basophils # (A) 0.1 k/uL (0-0.2); Basophils % (A) 1 %; Eosinophils # (A) 0.3 k/uL (0-0.7); Eosinophils % (A) 3 %; HCT 27.1 % (39.0-53.0); Hypochromasia Slight; Lymphocytes # (A) 1.1 k/uL (1.0-4.8); Lymphocytes % (A) 11 %; MCH 33.3 pg (25.0-35.0); MCHC 33.9 g/dL (31.0-37.0); MCV 98.2 fL (80.0-100.0); Macrocytosis Slight; Mean Platelet Volume 8.8; Monocytes # (A) 0.7 k/uL (0-1.0); Monocytes % (A) 7 %; Neutrophils # (A) 7.5 k/uL (1.3-7.7); Neutrophils % (A) 75 %; Platelet Count 255 k/uL (150-450); Poikilocytosis Slight; RBC 2.76 m/uL (4.30-5.90); RDW 16.6 % (11.5-15.5); WBC 9.9 k/uL (3.8-10.6)
[2021-02-16 08:27] LABS: HGB 9.2 gm/dL (13.0-17.5)
[2021-02-16] MEDS: INSULIN ASPART (NovoLOG) 100 UNIT/ML VIAL SQ SCH ×7 (08:58→21:21)
[2021-02-16] MEDS: FINASTERIDE 5 MG TAB PO SCH (09:04)
[2021-02-16] MEDS: DULoxetine HCL 60 MG CAPSULE.DR PO SCH (09:04)
[2021-02-16] MEDS: ASPIRIN 81 MG PO SCH (09:04)
[2021-02-16] MEDS: DULoxetine HCL 30 MG CAPSULE.DR PO SCH (09:04)
[2021-02-16] MEDS: METOPROLOL TARTRATE 25 MG TAB PO SCH ×2 (09:05→21:21)
[2021-02-16] MEDS: MULTIVITAMINS, THERA 1 EACH TAB PO SCH (09:05)
[2021-02-16] MEDS: LORATADINE 10 MG TAB PO SCH (09:05)
[2021-02-16] MEDS: CLOPIDOGREL 75 MG TAB PO SCH (09:05)
[2021-02-16] MEDS: CHOLECALCIFEROL 25 MCG (1000 IU) TABLET PO SCH (09:05)
[2021-02-16] MEDS: PANTOPRAZOLE 40 MG TABLET PO SCH (09:05)
[2021-02-16] MEDS: ASCORBIC ACID 500 MG TAB PO SCH (09:05)
[2021-02-16] MEDS: TROSPIUM CHLORIDE 20 MG TABLET PO SCH ×2 (09:06→22:34)
--- NOTE | 2021-02-16 09:57 | US ---
EXAMINATION TYPE: US chest DATE OF EXAM: 02/16/2021 COMPARISON: CT & CXR CLINICAL HISTORY: tiny for thoracentesis. SOB TECHNIQUE: Targeted ultrasound of the posterior lower bilateral hemithoraces EXAM MEASUREMENTS: Right Pleural Effusion pocket size: 6.8 cm Right skin surface to fluid distance: 3.9 cm Left Pleural Effusion pocket size: 7.3 cm Left skin surface to fluid distance: 3.8 cm Right side marked for possible thoracentesis outside the dept. Please note that lung remained persi stent in images during inspiration Left side marked for possible thoracentesis outside the dept. Please note that lung remained persis tent in images during inspiration Pulmonologists are able to review the images in the patient?s EMR. IMPRESSIONS: Bilateral small pleural effusions.
--- NOTE | 2021-02-16 10:21 | P.GSCN ---
History of Present Illness Consult date: 02/16/21 Reason for Consult: Known to our service from recent open heart surgery Requesting physician: Nadeen Gaitan History of present illness: This is a 70-year-old active gentleman who follows on an outpatient basis with Leonel Bautista for primary care and Dr. Gaitan for cardiology. He has a previous medical history of coronary artery disease, hypertension, hyperlipidemia, insulin-dependent diabetes, CVA 2, previous tobacco dependence, ANGEL with home CPAP use, GI bleed, ulcerative colitis with colectomy and ileostomy pouch placement, thrombocytopenia, and family history of premature coronary artery disease. He was recently hospitalized for open heart surgery after heart catheterization demonstrated coronary artery disease with left main disease. He underwent off pump 4 vessel CABG on 02/09/[address] Dhillon. He did have expected acute blood loss anemia after surgery with hematoma formation in the right upper medial thigh where the greater saphenous vein was taken from. This was outlined and has not increased in size and was Jemal wrapped while the patient was in the hospital. Otherwise he had an uneventful recovery and was discharged to home with home care on postoperative day #5. Unfortunately his local pharmacy was out of stock of metoprolol so he missed his nighttime dose as well as the following morning dose. When home care visited yesterday the patient was found to be tachycardic in the 120s to 130s, and was short of breath and feeling weak. His was eventually able to obtain Lopressor which he took at home. The family did contact Dr. Gaitan who requested the patient be transported to [facility] for further observation as there was concern for atrial fibrillation as well as the patient's symptoms. Upon arrival to [facility] emergency room the patient was found to be in sinus rhythm with heart rate in the 80s to 90s and no acute ischemic changes. The rest of his vital signs were stable. His oxygen saturation was 98% on room air. Chest x-ray demonstrated small left pleural effusion with atelectasis, and improved trace right pleural effusion. Chest CTA was also completed demonstrating no pulmonary embolism, as well as small bilateral pleural effusions, left greater than right. Hemoglobin was 7.1 (it was 7.4 on discharge), creatinine 0.95, troponins were mildly elevated at 0.2 however this is common after open heart surgery and there was no evidence of acute cardiac ischemia, lactic acid was 2.6 which came down to 1.9 after fluid administration, the patient was afebrile with WBC 9.6, proBNP 555. The patient was ordered to have 1 unit packed red blood cells followed by 10 mg IV Lasix by Dr. Gaitan. He was admitted to medicine for observation with consultation placed to cardiology, pulmonology for possible thoracentesis, and cardiothoracic surgery. Review of Systems Review of systems was completed and was negative except as noted - Cardiovascular Cardiovascular Comment(s): Weakness Reports as per HPI, Reports rapid heart beat, Reports shortness of breath Past Medical History Past Medical History: Atrial Fibrillation, Coronary Artery Disease (CAD), CVA/TIA, Diabetes Mellitus, Eye Disorder, Hearing Disorder / Deafness, Hyperlip idemia, Hypertension, Sleep Apnea/CPAP/BIPAP Additional Past Medical History / Comment(s): 05/2015 CVA and 08/2017, continues to have occasional balance issues. ., Ulcerative Colitis, hx kidney stone. BPH. illeostomy placed March 19, 2018 uses cpap at home for sleep apnea History of Any Multi-Drug Resistant Organisms: None Reported Past Surgical History: Appendectomy, Bowel Resection, Coronary Bypass/CABG, Heart Catheterization, Hernia Repair, Joint Replacement Additional Past Surgical History / Comment(s): APPENDEX RUPTURE, HAD J pouch. Left partial knee replacement. COLONOSCOPY, bilateral cataract extraction with lens implants, mesh with hernia repair, exama, colectomy with ileostomy, off- pump four-vessel CABG 02/09/2021 Past Anesthesia/Blood Transfusion Reactions: No Reported Reaction Additional Past Anesthesia/Blood Transfusion Reaction / Comm: PATIENT HAD SURGERY FOR LEFT EYE DETACHED RETINA AND DEVELOPED GAS BUBBLE IN L EYE. HE WAS INSTRUCTED TO NOT RECEIVE NITROUS OXIDE OR RIDE IN A PLANE UNTIL GAS BUBBLE IS GONE. Past Psychological History: Depression Smoking Status: Former smoker Past Alcohol Use History: Occasional, Rare Past Drug Use History: None Reported - Past Family History Mother Family Medical History: Cancer, Diabetes Mellitus Additional Family Medical History / Comment(s): Mother at age 84 from [place] Father Additional Family Medical History / Comment(s): Father is with history of coronary artery disease. Patient has 4 children that are healthy with no major medical problems. Brother(s) Additional Family Medical History / Comment(s): Patient has 4 brothers. Two at the age of 44 from coronary artery disease with history of tobacco use and alcohol dependence. One from aneurysm in the chest. Medications and Allergies Home Medications Medication Instructions Recorded Confirmed Type Atorvastatin [Lipitor] 40 mg PO HS 02/06/17 02/15/21 History DULoxetine HCL [Cymbalta] 60 mg PO DAILY 02/06/17 02/15/21 History Finasteride [Proscar] 5 mg PO DAILY 02/06/17 02/15/21 History Multivit-Min/FA/Lycopen/Lutein 1 cap PO DAILY 02/06/17 02/15/21 History [Centrum Silver Men Tablet] Tamsulosin [Flomax] 0.4 mg PO HS 02/06/17 02/15/21 History Trospium Chloride [Sanctura] 20 mg PO BID 02/06/17 02/15/21 History Cholecalciferol [Vitamin D3 (25 1,000 unit PO DAILY 11/19/17 02/15/21 History Mcg = 1000 Iu)] Ferrous Sulfate [Iron (65 MG 325 mg PO HS 12/18/17 02/15/21 History Elemental)] Omeprazole 40 mg PO DAILY 12/05/18 02/15/21 History Ascorbic Acid [Vitamin C] 1,000 mg PO DAILY 08/29/20 02/15/21 History Cranberry Fruit Extract [Cranberry] 450 mg PO DAILY #0 08/29/20 02/15/21 History Loratadine [Claritin] 10 mg PO DAILY 08/29/20 02/15/21 History Turmeric Root Extract [Turmeric] 1,000 mg PO BID 08/29/20 02/15/21 History Dulaglutide [Trulicity] 1.5 mg SQ TH 02/01/21 02/15/21 History Aspirin 81 mg PO DAILY 02/08/21 02/15/21 History Acetaminophen Tab [Tylenol] 650 mg PO Q4HR PRN tab 02/14/21 02/15/21 Rx Clopidogrel [Plavix] 75 mg PO DAILY #30 tab 02/14/21 02/15/21 Rx Cyclobenzaprine [Flexeril] 5 mg PO TID PRN #90 tab 02/14/21 02/15/21 Rx INSULIN LISPRO (HumaLOG) [humaLOG] 4 units SQ TID-W/MEALS #0 02/14/21 02/15/21 Rx Insulin Glargine,Hum.rec.anlog 40 unit SQ HS #0 02/14/21 02/15/21 Rx [Basaglar Kwikpen U-100] Lidocaine 4% Cream [Lmx 4] 1 applic TOPICAL TID 02/14/21 02/15/21 Rx Melatonin 5 mg PO HS PRN tablet 02/14/21 02/15/21 Rx Metoprolol Tartrate [Lopressor] 75 mg PO BID #120 tab 02/14/21 02/15/21 Rx DULoxetine HCL [Cymbalta] 30 mg PO DAILY 02/15/21 02/15/21 History Allergies Allergy/AdvReac Type Severity Reaction Status Date / Time codeine Allergy Rash/Hives Verified 02/15/21 21:39 morphine Allergy Rash/Hives Verified 02/15/21 21:39 Surgical - Exam Vital Signs Temp Pulse Resp BP Pulse Ox 98.1 F 88 18 114/70 98 02/15/21 19:30 02/15/21 19:30 02/15/21 19:30 02/15/21 19:30 02/15/21 19:30 CONSTITUTIONAL: Awake and alert, appears comfortable, cooperative, well- developed, well-nourished, no pain, no acute distress EYES: Pupils equal, round, reactive to light, normal ocular movement ENT: Moist mucous membranes without oral lesions present NECK: No masses, no bruits, trachea midline RESPIRATORY: Lungs sounds diminished in the bases bilaterally. Respirations even, nonlabored. Was placed on 2 L nasal cannula despite oxygen saturations in the mid 90s on room air. Strong cough. CARDIOVASCULAR: S1, S2 present. Regular rate and rhythm, sinus rhythm on telemetry. Sternum stable. Palpable peripheral pulses bilaterally. Right thigh edema present. No calf pain or tenderness noted. GASTROINTESTINAL: Abdomen soft, nontender, nondistended without masses or organ omegaly noted. There is no rebound or guarding present. Active bowel sounds present 4 quadrants. Right-sided ileostomy present GENITOURINARY: Deferred INTEGUMENTARY: Skin is warm and dry. Sternal incision well approximated without redness or drainage. Right thigh area very ecchymotic and tender to the touch, ecchymosis still outlined without significant increase NEUROLOGIC: Cranial nerves II through XII intact, normal coordination, no obvious motor or sensory deficits, speech is normal MUSKULOSKELETAL: Able to move all extremities, strength equal bilaterally, normal posture PSYCHIATRIC: Alert and oriented to person place and time, appropriate affect, intact judgment and insight Results - Labs 02/16/21 08:01 02/15/21 20:31 Abnormal Lab Results - Last 24 Hours (Table) 02/15/21 02/15/21 02/15/21 Range/Units 20:31 20:31 20:31 RBC 2.20 L (4.30-5.90) m/uL Hgb 7.1 L (13.0-17.5) gm/dL Hct 21.8 L (39.0-53.0) % RDW 16.6 H (11.5-15.5) % Sodium 133 L (137-145) mmol/L BUN 22 H (9-20) mg/dL Glucose 209 H (74-99) mg/dL POC Glucose (mg/dL) (75-99) mg/dL Plasma Lactic Acid Chris 2.6 H* (0.7-2.0) mmol/L Troponin I (0.000-0.034) ng/mL Total Protein 5.7 L (6.3-8.2) g/dL Albumin 3.4 L (3.5-5.0) g/dL Crossmatch 02/15/21 02/15/21 02/15/21 Range/Units 20:31 22:55 22:55 RBC (4.30-5.90) m/uL Hgb (13.0-17.5) gm/dL Hct (39.0-53.0) % RDW (11.5-15.5) % Sodium (137-145) mmol/L BUN (9-20) mg/dL Glucose (74-99) mg/dL POC Glucose (mg/dL) (75-99) mg/dL Plasma Lactic Acid Chris (0.7-2.0) mmol/L Troponin I 0.218 H* 0.213 H* (0.000-0.034) ng/mL Total Protein (6.3-8.2) g/dL Albumin (3.5-5.0) g/dL Crossmatch See Detail 02/16/21 02/16/21 02/16/21 Range/Units 03:00 07:51 08:01 RBC 2.76 L (4.30-5.90) m/uL Hgb 9.2 L D (13.0-17.5) gm/dL Hct 27.1 L (39.0-53.0) % RDW 16.6 H (11.5-15.5) % Sodium (137-145) mmol/L BUN (9-20) mg/dL Glucose (74-99) mg/dL POC Glucose (mg/dL) 168 H (75-99) mg/dL Plasma Lactic Acid Chris (0.7-2.0) mmol/L Troponin I 0.202 H* (0.000-0.034) ng/mL Total Protein (6.3-8.2) g/dL Albumin (3.5-5.0) g/dL Crossmatch Diabetes panel 02/15/21 Range/Units 20:31 Sodium 133 L (137-145) mmol/L Potassium 4.2 (3.5-5.1) mmol/L Chloride 101 (98-107) mmol/L Carbon Dioxide 25 (22-30) mmol/L BUN 22 H (9-20) mg/dL Creatinine 0.95 (0.66-1.25) mg/dL Glucose 209 H (74-99) mg/dL Calcium 8.8 (8.4-10.2) mg/dL AST 42 (17-59) U/L ALT 20 (4-49) U/L Alkaline Phosphatase 74 (38-126) U/L Total Protein 5.7 L (6.3-8.2) g/dL Albumin 3.4 L (3.5-5.0) g/dL Calcium panel 02/15/21 Range/Units 20:31 Calcium 8.8 (8.4-10.2) mg/dL Albumin 3.4 L (3.5-5.0) g/dL Pituitary panel 02/15/21 Range/Units 20:31 Sodium 133 L (137-145) mmol/L Potassium 4.2 (3.5-5.1) mmol/L Chloride 101 (98-107) mmol/L Carbon Dioxide 25 (22-30) mmol/L BUN 22 H (9-20) mg/dL Creatinine 0.95 (0.66-1.25) mg/dL Glucose 209 H (74-99) mg/dL Calcium 8.8 (8.4-10.2) mg/dL Adrenal panel 02/15/21 Range/Units 20:31 Sodium 133 L (137-145) mmol/L Potassium 4.2 (3.5-5.1) mmol/L Chloride 101 (98-107) mmol/L Carbon Dioxide 25 (22-30) mmol/L BUN 22 H (9-20) mg/dL Creatinine 0.95 (0.66-1.25) mg/dL Glucose 209 H (74-99) mg/dL Calcium 8.8 (8.4-10.2) mg/dL Total Bilirubin 1.2 (0.2-1.3) mg/dL AST 42 (17-59) U/L ALT 20 (4-49) U/L Alkaline Phosphatase 74 (38-126) U/L Total Protein 5.7 L (6.3-8.2) g/dL Albumin 3.4 L (3.5-5.0) g/dL - Imaging Chest x-ray: report reviewed, image reviewed CT scan - chest: report reviewed, image reviewed EKG: image reviewed Assessment and Plan Assessment: 1. Tachycardia, shortness of breath at home, patient missed 2 doses of metoprolol 2. History of coronary artery disease with left main disease, status post off- pump three-vessel CABG 02/09/21 3. History of hypertension 4. Hyperlipidemia, treated, cholesterol 83, LDL 8 5. Insulin-dependent diabetes, uncontrolled with hyperglycemia, preop hemoglobin A1c 8.6% 6. CVA in 2015 and 2018 without residual deficits 7. Previous tobacco dependence, preoperative FEV1 89% of predicted 8. Ostructive sleep apnea with home CPAP use 9. History of GI bleed 10. Ulcerative colitis with colectomy and ileostomy pouch placement 11. Family history of premature coronary artery disease. 12. Postoperative acute blood loss anemia, expected 13. Right upper medial thigh hematoma, known potential after endoscopic vein harvesting Plan: The patient was seen at the bedside in the emergency room. Chart/diagnostics reviewed. The case we discussed in detail with Dr. Dhillon. The patient states he feels much better, denies shortness of breath, does complain of some typical post-open heart associated pain. At this time we recommend continuing current medication therapy, continue sternal precautions. No further blood transfusion necessary. Right medial thigh may be Jemal wrapped to compress fluid, alternating heat and ice packs may be applied for comfort. Wean O2, encourage incentive spirometry use. Increase activity, ambulate as tolerated. Ultrasound of the chest was ordered for possible thoracentesis, was discussed with Dr. Martinez. All of patient's symptoms are known and somewhat expected immediately post open heart surgery. This was discussed in detail with the patient and his son-in-law at the bedside. We expect to be able to monitor the patient overnight and he should be discharged to home in the morning with home care. Follow-up appointments remain for primary care, cardiology, pulmonology, surgery. Open- heart discharge instructions placed on the patient's discharge plan. Thank you for this consult. We will follow along with you while patient is hos pitalized. Time with Patient: Greater than 30
--- NOTE | 2021-02-16 10:48 | CONS ---
CONSULTATION CHIEF COMPLAINT: Shortness of breath, fatigue, tiredness and dizziness. HISTORY OF PRESENT ILLNESS: This is a 70-year-old gentleman with history of coronary artery disease, status post recent CABG, hypertension, diabetes, dyslipidemia, who presented to the hospital complaining of shortness of breath. The patient was discharged home just on the and came into the hospital because he felt short of breath, fatigued, dizzy and tired. The patient has known severe obstructive coronary artery disease and had multivessel CABG including ABBOTT to LAD, vein graft to diagonal, PDA and PLV with the ligation of the left atrial appendage. Since coming to hospital, patient is doing well. His blood pressures have been normal. He is afebrile and hemoglobin is 9.2. Troponin is mildly elevated without any definite pattern to it. His creatinine is normal at 0.95. EKG shows sinus rhythm with nonspecific ST-T wave changes. His CT chest is negative for pulmonary embolism. The exact etiology for patient's symptoms is unclear. We will watch him on a monitored bed and see how his symptoms evolve. At the time of my evaluation this morning, he appears comfortable. He states that he missed some of his medications including Plavix and Lopressor. PAST MEDICAL HISTORY: Past medical history significant for coronary artery disease status post CABG, hypertension, dyslipidemia. MEDICATIONS: Current medications include Flomax, omeprazole, Lopressor 75 b.i.d., insulin, Cymbalta, aspirin, atorvastatin. ALLERGIES: ALLERGIC TO CODEINE AND MORPHINE. FAMILY HISTORY: Negative for premature coronary artery disease. SOCIAL HISTORY: Negative for current smoking, EtOH abuse, or drug abuse. REVIEW OF SYSTEMS: HEENT is unremarkable. CARDIAC as described above. RESPIRATORY as described above. GI negative. negative. ALLERGY/IMMUNOLOGY: Negative. SKIN negative. MUSCULOSKELETAL significant for arthritis. PSYCHOSOCIAL negative. DERM negative. CONSTITUTIONAL as described above. Rest of the system review is not relevant. PHYSICAL EXAMINATION: Patient is afebrile. Heart rate is 88 beats. Blood pressure is 130/80. Respiratory is 18, O2 saturation is 95% on 2 L. NECK: There is no jugular venous distention. Carotid upstroke is normal. There is no bruit. CHEST exam reveals diminished air entry at the bases. There are no crackles or rhonchi. HEART exam reveals first and second heart sounds. No gallop. Has a systolic murmur at the left lower sternal border. ABDOMEN is soft. Exam of EXTREMITIES did not reveal any edema. Peripheral pulses are felt. LABS: As described above. EKG is normal. CT chest is negative. ASSESSMENT: 1. Coronary artery disease status post coronary artery bypass grafting. 2. Shortness of breath. PLAN: So far cardiac workup is negative. We will resume his medications and watch him on a telemetry bed. MMODL / IJN: [id number] /
--- NOTE | 2021-02-16 11:11 | ECHOF ---
Referral Reason:Pleural effusion; weakness; check LV function MEASUREMENTS -------- HEIGHT: 182.9 cm WEIGHT: 85.3 kg BP: FINDINGS -------- Limited Study to check lv function & pericardial effusion. Overall left ventricular systolic function is mild-moderately impaired with, an EF between 40 - 45 %. Distal Septal Hypokinesis. There is no pericardial effusion. CONCLUSIONS -------- 1. Limited Study to check lv function & pericardial effusion. 2. Overall left ventricular systolic function is mild-moderately impaired with, an EF between 40 - 45 %. 3. Distal Septal Hypokinesis. 4. There is no pericardial effusion. LINE CLEANER: Julee Shirley RDCS
--- NOTE | 2021-02-16 11:16 | US ---
EXAMINATION TYPE: US venous doppler duplex LE RT DATE OF EXAM: 02/16/2021 10:59 AM COMPARISON: CTA 02/16/21 CLINICAL HISTORY: swelling. Pain/swelling right leg since open heart surgery 1 week ago. SIDE PERFORMED: Right TECHNIQUE: The lower extremity deep venous system is examined utilizing real time linear array sonog tami with graded compression, doppler sonography and color-flow sonography. VESSELS IMAGED: Common Femoral Vein Deep Femoral Vein Greater Saphenous Vein * Femoral Vein Popliteal Vein Small Saphenous Vein * Proximal Calf Veins (* superficial vessels) Right Leg: Negative for DVT IMPRESSION: Grayscale, color doppler, spectral doppler imaging performed of the deep veins of the lo wer extremities. There is normal flow, compressibility, vascular waveforms.
--- NOTE | 2021-02-16 13:50 | P.HPIM ---
History of Present Illness H&P Date: 02/16/21 HISTORY OF PRESENT ILLNESS 70-year-old male a shunt of Dr. Bautista with history of ulcerative colitis, recurrent kidney stone, hypertension, hyperlipidemia and type 2 diabetes on insulin, CVA in 2018, do DVTs, arrhythmia and started on anticoagulation. Patient was recently hospitalized with Dr. Dhiloln 4 vessel bypass, ABBOTT to the LAD, vein graft ABBOTT to high diagonal, vein graft to PDA and SANDRA also patient had left atrial appendage with 35mm AtrialCure clip to reduce any type of thrombus from A. fib if it ever happened. A shunt did well in the postop period and was discharged home on February 14. Patient now states that he has increasing shortness of breath as well as lightheadedness when he stands up. He does complain of orthopnea. He does not require home O2 and has not been set up yet for cardiac rehab. He denies any syncopal episode at home. He does have a cough, no fever or chills. No new lower extremity edema. He is utilizing incentive spirometry. Patient presented to [facility] emergency center for evaluation and found to be afebrile, heart rate 88, blood pressure 114/70, pulse ox 98%. EKG was a sinus rhythm with no acute ST changes. WBC 9.6, hemoglobin 7.1, platelet count 224. Sodium 133, potassium 4.2, chloride 101, CO2 25, BUN 22 and creatinine 0.95. Blood sugar 209. Troponin 0.218. BNP 555. Patient was found to have large hematoma on the right medial thigh and ordered for 1 unit of packed RBCs transfused today. Chest x-ray showed small left pleural effusion and atelectasis versus infiltrate on the left. Ultrasound of the right lower extremity negative for DVT CT of the chest revealed no evidence of pulmonary embolism. Mild aneurysm of the ascending aorta. Cardiomegaly with pleural effusions and basilar pulmonary infiltrate and atelectasis. This could relate to congestive heart failure. Mild pericardial effusion. Limited echocardiogram reveals EF 40-45%, distal septal hypokinesia, no pericard ial effusion. Ultrasound of the chest reveals bilateral small pleural effusions, right pleural effusion 6.8 cm, left pleural effusion 7.3 cm. Patient is seen today in the emergency center waiting for a bed on the observation unit. Consults in place with pulmonary medicine, cardiothoracic surgery. REVIEW OF SYSTEMS Constitutional: No fever, no chills, no night sweats. No weight change. Mild weakness fatigue and no lethargy. EENT: No headache. No blurred vision or double vision, no loss of vision. No loss of Hearing, no ringing in the ears, no dizziness. No nasal drainage or congestion. No epistaxis. No sore throat. Lungs: Reports shortness of breath, reports cough. Cardiovascular: No chest pain, reports lower extremity edema no PND or reports orthopnea. Abdominal: No abdominal pain. No nausea, vomiting. No diarrhea. No constipation. No bloody or tarry stools.. No loss of appetite. Genitourinary: No dysuria, increased frequency, urgency. No urinary retention, still have catheter at this point. Musculoskeletal: No myalgias. No muscle weakness, no gait dysfunction, no frequent falls. No back pain. No neck pain. Integumentary: No wounds, no lesions. No rash or pruritus. No unusual bruising. Neurologic: No aphasia. No facial droop. No change in mentation. No head injury. No headache. No paralysis. No paresthesia. Psychiatric: No depression. No anxiety. No mood swings. Endocrine: No abnormal blood sugars. No weight change. No excessive sweating or thirst. No cold intolerance. SOCIAL HISTORY Patient smokes for few years he quit back in 1974, no alcohol abuse, no illicit drug use, no use of marijuana does not use oxygen at home the patient has obstructive sleep apnea his using CPAP since 2018. FAMILY HISTORY His mother age 84 from colon cancer she was diabetic, father from coronary artery disease, patient had 4 brothers 2 of them had has one at age 44 from coronary artery disease and one from a thoracic aneurysm rupture. Patient has 4 children with no major medical problem. PHYSICAL EXAMINATION Gen: This is a 70-year-old male, resting on the ER stretcher and appears to be comfortable at rest. HEENT: Head is atraumatic, normocephalic. Pupils equal, round. Sclerae is anicteric. NECK: Supple. No JVD. No lymphadenopathy. No thyromegaly. LUNGS: Decreased expansion bilaterally specially in the left side positive fine rhonchi,chest wall incision looks fine. HEART: Regular rate and rhythm. Systolic murmur. ABDOMEN: Soft. Bowel sounds are present. No masses. No tenderness. Right-sided ileostomy. EXTREMITIES: Ecchymotic area to the right thigh. Right lower extremity edema. Right-sided calf tenderness. NEUROLOGICAL: Patient is awake, alert and oriented x3. Cranial nerves 2 through 12 are grossly intact. ASSESSMENT AND PLAN 1. Shortness of breath secondary to pleural effusions. Consult with pulmonary medicine, ultrasound has been completed and chest marked. 2. CAD with multiple coronary artery disease post 4 vessel bypass surgery, stable. 3. History of atrial fibrillation with previous CVA, stable, status post Atrial clip. 4. Right thigh hematoma secondary to endoscopy vein harvesting, stable. 5. Acute blood loss anemia expected. Patient has been transfused 1 unit of packed RBCs. 6. Diabetes mellitus type 2. Continue Levemir 40 units at bedtime, NovoLog 4 units 3 times daily with meals and scale, Truliciy 1.5 milligrams sub-every on . 7. History of ulcerative colitis with multiple complication up till patient had subtotal colectomy and has been doing well since. 8. History of hypertension. Continue Lopressor 75 mg twice daily. 9. BPH. Continue Proscar and Flomax watch for any urinary retention. 10. Hyperlipidemia. Continue Lipitor 40 mg at bedtime. 11. 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 12. Chronic iron deficiency anemia, continue ferrous sulfate 325 mg at bedtime. 13. Gastroesophageal reflux disease. Continue Protonix. 14. Obstructive sleep apnea on CPAP. CODE STATUS: Full code. Patient placed as an observation status. DISCHARGE PLAN home with [facility] Impression and plan of care have been directed as dictated by the signing physician. Azucena Goode nurse practitioner acting as scribe for signing physician. Past Medical History Past Medical History: Atrial Fibrillation, Coronary Artery Disease (CAD), CVA/TIA, Diabetes Mellitus, Eye Disorder, Hearing Disorder / Deafness, Hyperlipidemia, Hypertension, Sleep Apnea/CPAP/BIPAP Additional Past Medical History / Comment(s): 05/2015 CVA and 08/2017, continues to have occasional balance issues. ., Ulcerative Colitis, hx kidney stone. BPH. illeostomy placed March 19, 2018 uses cpap at home for sleep apnea History of Any Multi-Drug Resistant Organisms: None Reported Past Surgical History: Appendectomy, Bowel Resection, Coronary Bypass/CABG, Heart Catheterization, Hernia Repair, Joint Replacement Additional Past Surgical History / Comment(s): APPENDEX RUPTURE, HAD J pouch. Left partial knee replacement. COLONOSCOPY, bilateral cataract extraction with lens implants, mesh with hernia repair, exama, colectomy with ileostomy, off- pump four-vessel CABG 02/09/2021 Past Anesthesia/Blood Transfusion Reactions: No Reported Reaction Additional Past Anesthesia/Blood Transfusion Reaction / Comment(s): PATIENT HAD SURGERY FOR LEFT EYE DETACHED RETINA AND DEVELOPED GAS BUBBLE IN L EYE. HE WAS INSTRUCTED TO NOT RECEIVE NITROUS OXIDE OR RIDE IN A PLANE UNTIL GAS BUBBLE IS GONE. Past Psychological History: Depression Smoking Status: Former smoker Past Alcohol Use History: Occasional, Rare Past Drug Use History: None Reported - Past Family History Mother Family Medical History: Cancer, Diabetes Mellitus Additional Family Medical History / Comment(s): Mother at age 84 from COLON CA Father Additional Family Medical History / Comment(s): Father is with history of coronary artery disease. Patient has 4 children that are healthy with no major medical problems. Brother(s) Additional Family Medical History / Comment(s): Patient has 4 brothers. Two at the age of 44 from coronary artery disease with history of tobacco use and alcohol dependence. One from aneurysm in the chest. Medications and Allergies Home Medications Medication Instructions Recorded Confirmed Type Atorvastatin [Lipitor] 40 mg PO HS 02/06/17 02/15/21 History DULoxetine HCL [Cymbalta] 60 mg PO DAILY 02/06/17 02/15/21 History Finasteride [Proscar] 5 mg PO DAILY 02/06/17 02/15/21 History Multivit-Min/FA/Lycopen/Lutein 1 cap PO DAILY 02/06/17 02/15/21 History [Centrum Silver Men Tablet] Tamsulosin [Flomax] 0.4 mg PO HS 02/06/17 02/15/21 History Trospium Chloride [Sanctura] 20 mg PO BID 02/06/17 02/15/21 History Cholecalciferol [Vitamin D3 (25 1,000 unit PO DAILY 11/19/17 02/15/21 History Mcg = 1000 Iu)] Ferrous Sulfate [Iron (65 MG 325 mg PO HS 12/18/17 02/15/21 History Elemental)] Omeprazole 40 mg PO DAILY 12/05/18 02/15/21 History Ascorbic Acid [Vitamin C] 1,000 mg PO DAILY 08/29/20 02/15/21 History Cranberry Fruit Extract [Cranberry] 450 mg PO DAILY #0 08/29/20 02/15/21 History Loratadine [Claritin] 10 mg PO DAILY 08/29/20 02/15/21 History Turmeric Root Extract [Turmeric] 1,000 mg PO BID 08/29/20 02/15/21 History Dulaglutide [Trulicity] 1.5 mg SQ TH 02/01/21 02/15/21 History Aspirin 81 mg PO DAILY 02/08/21 02/15/21 History Acetaminophen Tab [Tylenol] 650 mg PO Q4HR PRN tab 02/14/21 02/15/21 Rx Clopidogrel [Plavix] 75 mg PO DAILY #30 tab 02/14/21 02/15/21 Rx Cyclobenzaprine [Flexeril] 5 mg PO TID PRN #90 tab 02/14/21 02/15/21 Rx INSULIN LISPRO (HumaLOG) [humaLOG] 4 units SQ TID-W/MEALS #0 02/14/21 02/15/21 Rx Insulin Glargine,Hum.rec.anlog 40 unit SQ HS #0 02/14/21 02/15/21 Rx [Basaglar Kwikpen U-100] Lidocaine 4% Cream [Lmx 4] 1 applic TOPICAL TID 02/14/21 02/15/21 Rx Melatonin 5 mg PO HS PRN tablet 02/14/21 02/15/21 Rx Metoprolol Tartrate [Lopressor] 75 mg PO BID #120 tab 02/14/21 02/15/21 Rx DULoxetine HCL [Cymbalta] 30 mg PO DAILY 02/15/21 02/15/21 History Allergies Allergy/AdvReac Type Severity Reaction Status Date / Time codeine Allergy Rash/Hives Verified 02/15/21 21:39 morphine Allergy Rash/Hives Verified 02/15/21 21:39 Physical Exam Vitals: Vital Signs Temp Pulse Resp BP Pulse Ox 02/16/21 09:09 94 18 134/80 96 02/16/21 08:20 95 02/16/21 06:30 98.0 F 88 18 129/80 94 L 02/16/21 06:00 90 18 126/80 95 02/16/21 05:00 89 20 121/78 96 02/16/21 03:25 98.2 F 92 20 111/66 95 02/16/21 02:55 98.4 F 95 18 113/75 96 02/16/21 02:45 98.3 F 93 18 100/64 02/16/21 00:00 92 18 116/83 96 02/15/21 21:38 89 16 116/83 02/15/21 19:30 98.1 F 88 18 114/70 98 Intake and Output 02/15/21 02/16/21 02/16/21 22:59 06:59 14:59 Intake Total 276 Balance 276 Intake: Blood Product 276 Rc Pheresis 2 As3 Unit 276 [id number] Other: Weight 85.275 kg Results CBC & Chem 7: 02/16/21 08:01 02/15/21 20:31 Labs: Abnormal Lab Results - Last 24 Hours (Table) 02/15/21 02/15/21 02/15/21 Range/Units 20:31 20:31 20:31 RBC 2.20 L (4.30-5.90) m/uL Hgb 7.1 L (13.0-17.5) gm/dL Hct 21.8 L (39.0-53.0) % RDW 16.6 H (11.5-15.5) % Sodium 133 L (137-145) mmol/L BUN 22 H (9-20) mg/dL Glucose 209 H (74-99) mg/dL POC Glucose (mg/dL) (75-99) mg/dL Plasma Lactic Acid Chris 2.6 H* (0.7-2.0) mmol/L Troponin I (0.000-0.034) ng/mL Total Protein 5.7 L (6.3-8.2) g/dL Albumin 3.4 L (3.5-5.0) g/dL Crossmatch 02/15/21 02/15/21 02/15/21 Range/Units 20:31 22:55 22:55 RBC (4.30-5.90) m/uL Hgb (13.0-17.5) gm/dL Hct (39.0-53.0) % RDW (11.5-15.5) % Sodium (137-145) mmol/L BUN (9-20) mg/dL Glucose (74-99) mg/dL POC Glucose (mg/dL) (75-99) mg/dL Plasma Lactic Acid Chris (0.7-2.0) mmol/L Troponin I 0.218 H* 0.213 H* (0.000-0.034) ng/mL Total Protein (6.3-8.2) g/dL Albumin (3.5-5.0) g/dL Crossmatch See Detail 02/16/21 02/16/21 02/16/21 Range/Units 03:00 07:51 08:01 RBC 2.76 L (4.30-5.90) m/uL Hgb 9.2 L D (13.0-17.5) gm/dL Hct 27.1 L (39.0-53.0) % RDW 16.6 H (11.5-15.5) % Sodium (137-145) mmol/L BUN (9-20) mg/dL Glucose (74-99) mg/dL POC Glucose (mg/dL) 168 H (75-99) mg/dL Plasma Lactic Acid Chris (0.7-2.0) mmol/L Troponin I 0.202 H* (0.000-0.034) ng/mL Total Protein (6.3-8.2) g/dL Albumin (3.5-5.0) g/dL Crossmatch
[2021-02-16 15:35] LABS: Glucose,Whole Blood 245 mg/dL (75-99)
[2021-02-16 17:28] LABS: Anisocytosis Slight; Basophils # (A) 0.1 k/uL (0-0.2); Basophils % (A) 1 %; Eosinophils # (A) 0.4 k/uL (0-0.7); Eosinophils % (A) 3 %; HCT 28.5 % (39.0-53.0); HGB 9.5 gm/dL (13.0-17.5); Hypochromasia Slight; Lymphocytes # (A) 1.3 k/uL (1.0-4.8); Lymphocytes % (A) 11 %; MCH 33.2 pg (25.0-35.0); MCHC 33.3 g/dL (31.0-37.0); MCV 99.8 fL (80.0-100.0); Macrocytosis Slight; Mean Platelet Volume 9.1; Monocytes # (A) 0.6 k/uL (0-1.0); Monocytes % (A) 5 %; Neutrophils # (A) 9.7 k/uL (1.3-7.7); Neutrophils % (A) 78 %; Platelet Count 265 k/uL (150-450); Poikilocytosis Slight; RBC 2.86 m/uL (4.30-5.90); RDW 16.9 % (11.5-15.5); WBC 12.4 k/uL (3.8-10.6)
--- NOTE | 2021-02-16 17:47 | P.CNPUL ---
History of Present Illness Consult date: 02/16/21 History of present illness: 71-year-old male patient, coming into the hospital because of some increased shortness of breath and tachycardia and a low hemoglobin. Note that the patient has multivessel coronary artery disease. The patient underwent recent coronary artery bypass surgery after he had a cardiac catheterization that showed a left main disease. The patient underwent a four-vessel bypass surgery on 02/09/[address] Ajay Dhillon. The patient postop developed some anemia and the patient also developed a hematoma in the right upper thigh area. Note that the patient reported some increase in size of right upper extremity hematoma. The patient had some bruising and swelling and pain in the involved area specially in the middle thigh area. He came in to the emergency department and the patient was found to have a hemoglobin of 7.1 and note that the patient time of discharge his hemoglobin was at 7.4. Renal function was stable with a creatinine of 0.9. Troponins were minimally elevated. Based on the that, the patient was given a CT angiogram that showed small bilateral pleural effusions more so on the left which was an expected outcome of surgery. The white cells noted at 9.5 with a proBNP level of 555. The patient already received 2 units of packed RBC in the emergency department followed by 10 mg of IV Lasix. He was admitted to the hospital for further care. His comorbid conditions include CAD, diabetes mellitus with insulin dependence, hypertension and hyperlipidemia. History of CVA 2 and the patient has obstructive sleep apnea maintained on home CPAP therapy. He also has history of ulcerative colitis and the patient undergone previous colectomy and has a diverticulectomy which was functional postop without any major issues. No altered mentation. No focal neurological deficit. He is an ex-smoker. Review of Systems Constitutional: Reports fatigue, Reports weakness Eyes: denies as per HPI, denies blurred vision, denies bulging eye, denies decreased vision, denies diplopia, denies discharge, denies dry eye, denies irritation, denies itching, denies pain, denies photophobia, denies loss of peripheral vision, denies loss of vision, denies tunnel vision/blind spots Ears: deny: decreased hearing, ear discharge, earache, tinnitus Ears, nose, mouth and throat: Reports as per HPI Breasts: absent: as per HPI, gynecomastia Cardiovascular: Reports decreased exercise tolerance, Reports dyspnea on exertion, Reports shortness of breath Respiratory: Reports dyspnea Gastrointestinal: Reports as per HPI Genitourinary: Reports as per HPI Musculoskeletal: Reports as per HPI Musculoskeletal: right: hip swelling, absent: ankle pain, ankle stiffness, ankle swelling, as per HPI, elbow pain, elbow stiffness, elbow swelling, foot pain, foot stiffness, foot swelling, hand pain, hand stiffness, hand swelling, hip pain, hip stiffness, knee pain, knee stiffness, knee swelling, shoulder pain, shoulder stiffness, shoulder swelling, wrist pain, wrist stiffness, wrist swelling Integumentary: Reports as per HPI, Reports color changes, Reports wounds Neurological: Reports as per HPI Psychiatric: Reports as per HPI Endocrine: Reports as per HPI, Reports fatigue Hematologic/Lymphatic: Reports easy bleeding Allergic/Immunologic: Reports as per HPI Past Medical History Past Medical History: Coronary Artery Disease (CAD), CVA/TIA, Diabetes Mellitus, Eye Disorder, Hearing Disorder / Deafness, Hyperlipidemia, Hypertension, Sleep Apnea/CPAP/BIPAP Additional Past Medical History / Comment(s): 05/2015 CVA and 08/2017, continues to have occasional balance issues. ., Ulcerative Colitis, hx kidney stone. BPH. illeostomy placed March 19, 2018 uses cpap at home for sleep apnea History of Any Multi-Drug Resistant Organisms: None Reported Past Surgical History: Appendectomy, Bowel Resection, Coronary Bypass/CABG, Heart Catheterization, Hernia Repair, Joint Replacement Additional Past Surgical History / Comment(s): APPENDEX RUPTURE, HAD J pouch. Left partial knee replacement. COLONOSCOPY, bilateral cataract extraction with lens implants, mesh with hernia repair, exama, colectomy with ileostomy, off- pump four-vessel CABG 02/09/2021 Past Anesthesia/Blood Transfusion Reactions: No Reported Reaction Additional Past Anesthesia/Blood Transfusion Reaction / Comment(s): PATIENT HAD SURGERY FOR LEFT EYE DETACHED RETINA AND DEVELOPED GAS BUBBLE IN L EYE. HE WAS INSTRUCTED TO NOT RECEIVE NITROUS OXIDE OR RIDE IN A PLANE UNTIL GAS BUBBLE IS GONE. Past Psychological History: Depression Smoking Status: Former smoker Past Alcohol Use History: Occasional, Rare Past Drug Use History: None Reported - Past Family History Mother Family Medical History: Cancer, Diabetes Mellitus Additional Family Medical History / Comment(s): Mother at age 84 from [place] Father Additional Family Medical History / Comment(s): Father is with history of coronary artery disease. Patient has 4 children that are healthy with no major medical problems. Brother(s) Additional Family Medical History / Comment(s): Patient has 4 brothers. Two at the age of 44 from coronary artery disease with history of tobacco use and alcohol dependence. One from aneurysm in the chest. Medications and Allergies Home Medications Medication Instructions Recorded Confirmed Type Atorvastatin [Lipitor] 40 mg PO HS 02/06/17 02/15/21 History DULoxetine HCL [Cymbalta] 60 mg PO DAILY 02/06/17 02/15/21 History Finasteride [Proscar] 5 mg PO DAILY 02/06/17 02/15/21 History Multivit-Min/FA/Lycopen/Lutein 1 cap PO DAILY 02/06/17 02/15/21 History [Centrum Silver Men Tablet] Tamsulosin [Flomax] 0.4 mg PO HS 02/06/17 02/15/21 History Trospium Chloride [Sanctura] 20 mg PO BID 02/06/17 02/15/21 History Cholecalciferol [Vitamin D3 (25 1,000 unit PO DAILY 11/19/17 02/15/21 History Mcg = 1000 Iu)] Ferrous Sulfate [Iron (65 MG 325 mg PO HS 12/18/17 02/15/21 History Elemental)] Omeprazole 40 mg PO DAILY 12/05/18 02/15/21 History Ascorbic Acid [Vitamin C] 1,000 mg PO DAILY 08/29/20 02/15/21 History Cranberry Fruit Extract [Cranberry] 450 mg PO DAILY #0 08/29/20 02/15/21 History Loratadine [Claritin] 10 mg PO DAILY 08/29/20 02/15/21 History Turmeric Root Extract [Turmeric] 1,000 mg PO BID 08/29/20 02/15/21 History Dulaglutide [Trulicity] 1.5 mg SQ TH 02/01/21 02/15/21 History Aspirin 81 mg PO DAILY 02/08/21 02/15/21 History Acetaminophen Tab [Tylenol] 650 mg PO Q4HR PRN tab 02/14/21 02/15/21 Rx Clopidogrel [Plavix] 75 mg PO DAILY #30 tab 02/14/21 02/15/21 Rx Cyclobenzaprine [Flexeril] 5 mg PO TID PRN #90 tab 02/14/21 02/15/21 Rx INSULIN LISPRO (HumaLOG) [humaLOG] 4 units SQ TID-W/MEALS #0 02/14/21 02/15/21 Rx Insulin Glargine,Hum.rec.anlog 40 unit SQ HS #0 02/14/21 02/15/21 Rx [Basaglar Kwikpen U-100] Lidocaine 4% Cream [Lmx 4] 1 applic TOPICAL TID 02/14/21 02/15/21 Rx Melatonin 5 mg PO HS PRN tablet 02/14/21 02/15/21 Rx Metoprolol Tartrate [Lopressor] 75 mg PO BID #120 tab 02/14/21 02/15/21 Rx DULoxetine HCL [Cymbalta] 30 mg PO DAILY 02/15/21 02/15/21 History Allergies Allergy/AdvReac Type Severity Reaction Status Date / Time codeine Allergy Rash/Hives Verified 02/15/21 21:39 morphine Allergy Rash/Hives Verified 02/15/21 21:39 Physical Exam Vitals: Vital Signs Temp Pulse Resp BP Pulse Ox 02/16/21 17:00 86 18 131/80 97 02/16/21 09:09 94 18 134/80 96 02/16/21 08:20 95 02/16/21 06:30 98.0 F 88 18 129/80 94 L 02/16/21 06:00 90 18 126/80 95 02/16/21 05:00 89 20 121/78 96 02/16/21 03:25 98.2 F 92 20 111/66 95 02/16/21 02:55 98.4 F 95 18 113/75 96 02/16/21 02:45 98.3 F 93 18 100/64 02/16/21 00:00 92 18 116/83 96 02/15/21 21:38 89 16 116/83 02/15/21 19:30 98.1 F 88 18 114/70 98 Intake and Output 02/16/21 02/16/21 02/16/21 06:59 14:59 22:59 Intake Total 276 Balance 276 Intake: Blood Product 276 Rc Pheresis 2 As3 Unit 276 [id number] CONSTITUTIONAL: Awake and alert, appears comfortable, cooperative, well- developed, well-nourished, no pain, no acute distress EYES: Pupils equal, round, reactive to light, normal ocular movement ENT: Moist mucous membranes without oral lesions present NECK: No masses, no bruits, trachea midline RESPIRATORY: Lungs sounds diminished in the bases bilaterally. Respirations even, nonlabored. Was placed on 2 L nasal cannula despite oxygen saturations in the mid 90s on room air. Strong cough. CARDIOVASCULAR: S1, S2 present. Regular rate and rhythm, sinus rhythm on telemetry. Sternum stable. Palpable peripheral pulses bilaterally. Right thigh edema present. No calf pain or tenderness noted. GASTROINTESTINAL: Abdomen soft, nontender, nondistended without masses or organomegaly noted. There is no rebound or guarding present. Active bowel sounds present 4 quadrants. Right-sided ileostomy present GENITOURINARY: Deferred INTEGUMENTARY: Skin is warm and dry. Sternal incision well approximated without redness or drainage. Right thigh area very ecchymotic and tender to the touch, ecchymosis still outlined without significant increase NEUROLOGIC: Cranial nerves II through XII intact, normal coordination, no obvious motor or sensory deficits, speech is normal MUSKULOSKELETAL: Able to move all extremities, strength equal bilaterally, normal posture PSYCHIATRIC: Alert and oriented to person place and time, appropriate affect, intact judgment and insight Results - Laboratory Findings CBC and BMP: 02/16/21 16:55 02/15/21 20:31 PT/INR, D-dimer PT 10.0 sec (9.0-12.0) 02/15/21 20:31 INR 0.9 (<1.2) 02/15/21 20:31 Abnormal lab findings: Abnormal Labs 02/15/21 02/15/21 02/15/21 20:31 20:31 20:31 WBC RBC 2.20 L Hgb 7.1 L Hct 21.8 L RDW 16.6 H Neutrophils # Sodium 133 L BUN 22 H Glucose 209 H POC Glucose (mg/dL) Plasma Lactic Acid Chris 2.6 H* Troponin I Total Protein 5.7 L Albumin 3.4 L Procalcitonin Crossmatch 02/15/21 02/15/21 02/15/21 20:31 22:55 22:55 WBC RBC Hgb Hct RDW Neutrophils # Sodium BUN Glucose POC Glucose (mg/dL) Plasma Lactic Acid Chris Troponin I 0.218 H* Total Protein Albumin Procalcitonin 0.24 H Crossmatch See Detail 02/15/21 02/16/21 02/16/21 22:55 03:00 07:51 WBC RBC Hgb Hct RDW Neutrophils # Sodium BUN Glucose POC Glucose (mg/dL) 168 H Plasma Lactic Acid Chris Troponin I 0.213 H* 0.202 H* Total Protein Albumin Procalcitonin Crossmatch 02/16/21 02/16/21 02/16/21 08:01 15:15 16:55 WBC 12.4 H RBC 2.76 L 2.86 L Hgb 9.2 L D 9.5 L Hct 27.1 L 28.5 L RDW 16.6 H 16.9 H Neutrophils # 9.7 H Sodium BUN Glucose POC Glucose (mg/dL) 245 H Plasma Lactic Acid Chris Troponin I Total Protein Albumin Procalcitonin Crossmatch Assessment and Plan Plan: 1 shortness of breath, multifactorial. The patient was quite tachycardic at time of admission off his metoprolol. Symptoms patient developed small bilateral pleural effusions, expected outcome of surgery. The patient was anemic with a hemoglobin of 7.1. He was also recovering from his four-vessel bypass surgery. 2 coronary artery disease, post four-vessel bypass surgery, off pump completed on 02/09/2021 3 bilateral pleural effusions 4 anemia, likely secondary to blood loss anemia following coronary artery bypass surgery, expected outcome 5 hypertension 6 hyperlipidemia 7 diabetes mellitus with insulin dependence with a preop hemoglobin A1c of 8.6 8 history of CVA without any residual deficits 9 history of ulcerative colitis post colectomy and the patient has a ileostomy which is quite functional at this point in time 10 obstructive sleep apnea Coumadin on home CPAP therapy 11 right thigh hematoma Plan Check Doppler of the right lower extremities rule out DVT Monitor right thigh hematoma Monitor hemoglobin and agree on transfusing the patient with units of packed RBC Pleural effusions are small and these will be monitored. No need for any immediate thoracentesis Echocardiogram showed an ejection fraction of 40-45% consistent with mild to moderate impairment of the left ventricular ejection fraction. There was evidence of distal septal hypokinesis without any pericardial effusion Resume home medications including metoprolol Resume baby aspirin and Plavix and monitor the right thigh hematoma Levemir insulin 40 units along with sliding scale coverage Encourage use of incentive spirometer We'll continue to follow
[2021-02-16 20:27] LABS: Glucose,Whole Blood 185 mg/dL (75-99)
[2021-02-16] MEDS ORDERED: TAMSULOSIN 0.4 MG CAP.ER.24H PO SCH (21:00)
[2021-02-16] MEDS ORDERED: INSULIN DETEMIR (LEVEMIR) 100 UNIT/ML SYR SQ SCH (21:00)
[2021-02-16] MEDS ORDERED: FERROUS SULFATE 325 MG TAB PO SCH (21:00)
[2021-02-16] MEDS ORDERED: ATORVASTATIN 40 MG TAB PO SCH (21:00)
[2021-02-16] MEDS ORDERED: MELATONIN 5 MG TABLET PO PRN (21:00)
[2021-02-17 07:11] LABS: Glucose,Whole Blood 105 mg/dL (75-99)
--- NOTE | 2021-02-17 08:18 | P.PN ---
Subjective Progress Note Date: 02/17/21 Principal diagnosis: Tachycardia, shortness of breath at home, small bilateral pleural effusions, right medial thigh hematoma, anemia. History of coronary artery disease with left main disease, status post off-pump three-vessel CABG 02/09/21, hypertension, hyperlipidemia, insulin-dependent diabetes, CVA in 2014 and 2017 without residual deficits, previous tobacco dependence, ostructive sleep apnea with home CPAP use, history of GI bleed, ulcerative colitis with colectomy and ileostomy pouch placement, family history of premature coronary artery disease. The patient is currently sitting up in bed in the cardiac observation unit in no acute distress. Denies any pain, states shortness of breath has resolved. Remains in sinus rhythm with occasional PVCs, hemodynamically stable. He did receive 1 unit packed red blood cells yesterday for hemoglobin 7.1, repeat hemoglobin yesterday was 9.5. Right medial thigh hematoma remains present and tender to touch, however has not increased in size and we did recommend intermittent heat pack application. Remains on room air with oxygen saturation in the high 90s, able to achieve 1500 mL on his incentive spirometry. Limited echo was completed yesterday demonstrating mild to moderately impaired LV systolic function with EF 40-45%, and no pericardial effusion. The patient was seen by pulmonology regarding pleural effusions with recommendations for no treatment at this time. Chest x-ray was reviewed this morning, stable. The patient is in good spirits and hoping to go home today. Objective - Vital Signs Vital signs: Vital Signs Temp 97.8 F 02/17/21 01:12 Pulse 86 02/17/21 01:12 Resp 18 02/17/21 02:00 BP 118/74 02/17/21 01:12 Pulse Ox 98 02/17/21 01:12 Intake & Output 02/16/21 02/17/21 02/17/21 18:59 06:59 18:59 Intake Total 180 Output Total 500 Balance 180 -500 Weight 85.275 kg Intake: Oral 180 Output: Urine 500 Other: Voiding Method Urinal # Voids 2 - Exam CONSTITUTIONAL: Appears comfortable, cooperative, no acute distress RESPIRATORY: Lungs sounds diminished in the bases bilaterally. Respirations even, nonlabored. Currently on room air with oxygen saturation 98%. Able to achieve 1500 mL on incentive spirometry. Strong cough. CARDIOVASCULAR: S1, S2 present. Regular rate and rhythm, sinus rhythm with occasional PVCs on telemetry. Sternum stable. Palpable peripheral pulses bilaterally. Right lower extremity edema present, expected after vein harvest. No calf pain or tenderness noted. Heart hugger in place with patient demonstrating appropriate use. Antiembolism stockings present. GASTROINTESTINAL: Abdomen soft, nontender, nondistended. Active bowel sounds present 4 quadrants. Tolerating diet. Right-sided ileostomy present with stool GENITOURINARY: Continues to void INTEGUMENTARY: Skin is warm and dry with evidence of good perfusion. Anterior chest incision well approximated without redness or drainage. Right thigh area ecchymotic and tender to the touch, ecchymosis still outlined without significant increase NEUROLOGIC: Cranial nerves II through XII intact MUSKULOSKELETAL: Able to move all extremities, strength equal bilaterally, gait normal PSYCHIATRIC: Alert and oriented to person place and time, appropriate affect, intact judgment and insight - Allied health notes Allied health notes reviewed: nursing - Labs CBC & Chem 7: 02/16/21 16:55 02/15/21 20:31 Labs: Abnormal Lab Results - Last 24 Hours (Table) 02/15/21 02/16/21 02/16/21 Range/Units 22:55 08:01 15:15 WBC (3.8-10.6) k/uL RBC 2.76 L (4.30-5.90) m/uL Hgb 9.2 L D (13.0-17.5) gm/dL Hct 27.1 L (39.0-53.0) % RDW 16.6 H (11.5-15.5) % Neutrophils # (1.3-7.7) k/uL POC Glucose (mg/dL) 245 H (75-99) mg/dL Procalcitonin 0.24 H (0.02-0.09) ng/mL 02/16/21 02/16/21 02/17/21 Range/Units 16:55 20:26 07:10 WBC 12.4 H (3.8-10.6) k/uL RBC 2.86 L (4.30-5.90) m/uL Hgb 9.5 L (13.0-17.5) gm/dL Hct 28.5 L (39.0-53.0) % RDW 16.9 H (11.5-15.5) % Neutrophils # 9.7 H (1.3-7.7) k/uL POC Glucose (mg/dL) 185 H 105 H (75-99) mg/dL Procalcitonin (0.02-0.09) ng/mL Microbiology - Last 24 Hours (Table) 02/15/21 22:49 Blood Culture - Preliminary Blood No Growth after 24 hours 02/15/21 23:15 Blood Culture - Preliminary Blood No Growth after 24 hours - Imaging and Cardiology Chest x-ray: image reviewed Assessment and Plan Assessment: 1. Tachycardia, shortness of breath at home, patient missed 2 doses of metoprolol 2. Small bilateral pleural effusions, common after open heart surgery 3. Right medial thigh hematoma, known potential after endoscopic vein harvesting 4. Chronic anemia status post 1 unit packed red blood cell transfusion 5. History of coronary artery disease with left main disease, status post off- pump three-vessel CABG 02/09/21 6. History of hypertension 7. Hyperlipidemia, treated, cholesterol 83, LDL 8 8. Insulin-dependent diabetes, uncontrolled with hyperglycemia, preop hemoglobin A1c 8.6% 9. CVA in 2014 and 2017 without residual deficits 10. Previous tobacco dependence, preoperative FEV1 89% of predicted 11. Ostructive sleep apnea with home CPAP use 12. History of GI bleed 13. Ulcerative colitis with colectomy and ileostomy pouch placement 14. Family history of premature coronary artery disease. Plan: 1. Continue to maximize medical therapy with aspirin, statin, Plavix, beta oscar 2. Encourage incentive spirometry 10 times every hour while awake. 3. Increase activity, ambulate as tolerated. 4. No further transfusion necessary. We will give 20 mg IV push Lasix today 5. GI/DVT prophylaxis. 6. Pain control with current medication regimen. 7. Insulin management per primary care service. 8. Strict accurate intake and output. Daily weights 9. Continue warm packs to right medial thigh, discussed with the patient and nursing 10. No thoracentesis necessary per pulmonology 11. Open-heart discharge instructions and follow-up appointments with primary care, cardiology, pulmonology, surgery were placed on the patient's discharge plan 12. From cardiothoracic surgery standpoint patient should be discharged to home today with home care Time with Patient: Greater than 30
--- NOTE | 2021-02-17 08:49 | XR ---
EXAMINATION TYPE: Two view chest xray DATE OF EXAM: 02/17/2021 COMPARISON: 02/15/2021 TECHNIQUE: PA and lateral views submitted. HISTORY: Post cardiac surgery FINDINGS: Bilateral infiltrate and small effusion. Postoperative change. Atherosclerotic change aorta. Arthropa thy of the shoulders. No overt failure. IMPRESSION: 1. Bilateral infiltrate and small effusion mildly progressed on the right.
--- NOTE | 2021-02-17 09:00 | P.DS ---
Providers Date of admission: 02/15/21 23:07 Expected date of discharge: 02/17/21 Attending physician: Cecilia Andre Consults: 02/15/21 22:54 Consult Physician Routine Consulting Provider: Ajay Dhillon Consult Reason/Comments: Shortness of breath; Weakness Do you want consulting provider notified?: Yes Consult Physician Routine Consulting Provider: Nadeen Gaitan Consult Reason/Comments: Shortness of breath; weakness; recent CABG Do you want consulting provider notified?: Already Contacted 02/16/21 07:40 Consult Physician Routine Consulting Provider: Rinku Henley Consult Reason/Comments: left pleural Effusion Do you want consulting provider notified?: Yes Primary care physician: [facility] Course: HISTORY OF PRESENT ILLNESS 70-year-old male a shunt of Dr. Bautista with history of ulcerative colitis, recurrent kidney stone, hypertension, hyperlipidemia and type 2 diabetes on insulin, CVA in 2018, do DVTs, arrhythmia and started on anticoagulation. Patient was recently hospitalized with Dr. Dhillon 4 vessel bypass, ABBOTT to the LAD, vein graft ABBOTT to high diagonal, vein graft to PDA and SANDRA also patient had left atrial appendage with 35mm AtrialCure clip to reduce any type of thrombus from A. fib if it ever happened. A shunt did well in the postop period and was discharged home on February 14. Patient now states that he has increasing shortness of breath as well as lightheadedness when he stands up. He does complain of orthopnea. He does not require home O2 and has not been set up yet for cardiac rehab. He denies any syncopal episode at home. He does have a cough, no fever or chills. No new lower extremity edema. He is utilizing incentive spirometry. Patient presented to [facility] emergency center for evaluation and found to be afebrile, heart rate 88, blood pressure 114/70, pulse ox 98%. EKG was a sinus rhythm with no acute ST changes. WBC 9.6, hemoglobin 7.1, platelet count 224. Sodium 133, potassium 4.2, chloride 101, CO2 25, BUN 22 and creatinine 0.95. Blood sugar 209. Troponin 0.218. BNP 555. Patient was found to have large hematoma on the right medial thigh and ordered for 1 unit of packed RBCs transfused today. Chest x-ray showed small left pleural effusion and atelectasis versus infiltrate on the left. Ultrasound of the right lower extremity negative for DVT CT of the chest revealed no evidence of pulmonary embolism. Mild aneurysm of the ascending aorta. Cardiomegaly with pleural effusions and basilar pulmonary infiltrate and atelectasis. This could relate to congestive heart failure. Mild pericardial effusion. Limited echocardiogram reveals EF 40-45%, distal septal hypokinesia, no pericardial effusion. Ultrasound of the chest reveals bilateral small pleural effusions, right pleural effusion 6.8 cm, left pleural effusion 7.3 cm. Patient is seen today in the emergency center waiting for a bed on the observation unit. Consults in place with pulmonary medicine, cardiothoracic surgery. 02/17: Patient has been cleared for discharge by multiple consultants including cardiothoracic surgery, pulmonary medicine, her etiology. Repeat chest x-ray reveals bilateral infiltrate and small effusion on the right. Patient states his breathing is good. He is not utilizing oxygen therapy. Pulmonary medicine does not plan for any thoracentesis. He has been afebrile, heart rate 88, blood pressure 100/69, pulse ox 97% on room air. WBC 10.8, hemoglobin 8.8, platelet count 230. Sodium 138, potassium 4.8, chloride 104, CO2 18, BUN 18 and cr eatinine 1. Blood sugar 111. Blood culture no growth after 24 hours. Patient will be discharged home today in stable condition. DISCHARGE DIAGNOSES 1. Shortness of breath secondary to pleural effusions. 2. CAD with multiple coronary artery disease post 4 vessel bypass surgery, stable. 3. History of atrial fibrillation with previous CVA, stable, status post Atrial clip. 4. Right thigh hematoma secondary to endoscopy vein harvesting, stable. 5. Acute blood loss anemia expected. Patient has been transfused 1 unit of packed RBCs. 6. Diabetes mellitus type 2. 7. History of ulcerative colitis with multiple complication up till patient had subtotal colectomy and has been doing well since. 8. History of hypertension. 9. BPH. 10. Hyperlipidemia. 11. 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 12. Chronic iron deficiency anemia. 13. Gastroesophageal reflux disease. 14. Obstructive sleep apnea on CPAP. DISCHARGE PLAN home with [facility] Impression and plan of care have been directed as dictated by the signing physician. Azucena Goode nurse practitioner acting as scribe for signing physician. Patient Condition at Discharge: Good Plan - Discharge Summary Discharge Rx Participant: Yes New Discharge Prescriptions: New Potassium Chloride ER [K-Dur 10] 10 meq PO DAILY #30 tab Furosemide [Lasix] 20 mg PO DAILY #30 tab Continue Multivit-Min/FA/Lycopen/Lutein [Centrum Silver Men Tablet] 1 cap PO DAILY DULoxetine HCL [Cymbalta] 60 mg PO DAILY Trospium Chloride [Sanctura] 20 mg PO BID Tamsulosin [Flomax] 0.4 mg PO HS Finasteride [Proscar] 5 mg PO DAILY Atorvastatin [Lipitor] 40 mg PO HS Cholecalciferol [Vitamin D3 (25 Mcg = 1000 Iu)] 1,000 unit PO DAILY Ferrous Sulfate [Iron (65 MG Elemental)] 325 mg PO HS Omeprazole 40 mg PO DAILY Cranberry Fruit Extract [Cranberry] 450 mg PO DAILY #0 Ascorbic Acid [Vitamin C] 1,000 mg PO DAILY Acetaminophen Tab [Tylenol] 650 mg PO Q4HR PRN tab PRN Reason: Fever And/ Or Pain Insulin Glargine,Hum.rec.anlog [Vincenzo Sellers U-100] 40 unit SQ HS #0 Loratadine [Claritin] 10 mg PO DAILY Turmeric Root Extract [Turmeric] 1,000 mg PO BID Dulaglutide [Trulicity] 1.5 mg SQ TH Aspirin 81 mg PO DAILY Cyclobenzaprine [Flexeril] 5 mg PO TID PRN #90 tab PRN Reason: Muscle Spasm Lidocaine 4% Cream [Lmx 4] 1 applic TOPICAL TID Metoprolol Tartrate [Lopressor] 75 mg PO BID #120 tab Melatonin 5 mg PO HS PRN tablet PRN Reason: Insomnia Clopidogrel [Plavix] 75 mg PO DAILY #30 tab INSULIN LISPRO (HumaLOG) [humaLOG] 4 units SQ TID-W/MEALS #0 DULoxetine HCL [Cymbalta] 30 mg PO DAILY Discharge Medication List Atorvastatin [Lipitor] 40 mg PO HS 02/06/17 [History] DULoxetine HCL [Cymbalta] 60 mg PO DAILY 02/06/17 [History] Finasteride [Proscar] 5 mg PO DAILY 02/06/17 [History] Multivit-Min/FA/Lycopen/Lutein [Centrum Silver Men Tablet] 1 cap PO DAILY 02/06/17 [History] Tamsulosin [Flomax] 0.4 mg PO HS 02/06/17 [History] Trospium Chloride [Sanctura] 20 mg PO BID 02/06/17 [History] Cholecalciferol [Vitamin D3 (25 Mcg = 1000 Iu)] 1,000 unit PO DAILY 11/19/17 [History] Ferrous Sulfate [Iron (65 MG Elemental)] 325 mg PO HS 12/18/17 [History] Omeprazole 40 mg PO DAILY 12/05/18 [History] Ascorbic Acid [Vitamin C] 1,000 mg PO DAILY 08/29/20 [History] Cranberry Fruit Extract [Cranberry] 450 mg PO DAILY #0 08/29/20 [History] Loratadine [Claritin] 10 mg PO DAILY 08/29/20 [History] Turmeric Root Extract [Turmeric] 1,000 mg PO BID 08/29/20 [History] Dulaglutide [Trulicity] 1.5 mg SQ TH 02/01/21 [History] Aspirin 81 mg PO DAILY 02/08/21 [History] Acetaminophen Tab [Tylenol] 650 mg PO Q4HR PRN tab 02/14/21 [Rx] Clopidogrel [Plavix] 75 mg PO DAILY #30 tab 02/14/21 [Rx] Cyclobenzaprine [Flexeril] 5 mg PO TID PRN #90 tab 02/14/21 [Rx] INSULIN LISPRO (HumaLOG) [humaLOG] 4 units SQ TID-W/MEALS #0 02/14/21 [Rx] Insulin Glargine,Hum.rec.anlog [Basaglar Kwikpen U-100] 40 unit SQ HS #0 02/14/21 [Rx] Lidocaine 4% Cream [Lmx 4] 1 applic TOPICAL TID 02/14/21 [Rx] Melatonin 5 mg PO HS PRN tablet 02/14/21 [Rx] Metoprolol Tartrate [Lopressor] 75 mg PO BID #120 tab 02/14/21 [Rx] DULoxetine HCL [Cymbalta] 30 mg PO DAILY 02/15/21 [History] Furosemide [Lasix] 20 mg PO DAILY #30 tab 02/17/21 [Rx] Potassium Chloride ER [K-Dur 10] 10 meq PO DAILY #30 tab 02/17/21 [Rx] Follow up Appointment(s)/Referral(s): Kareen Mtz, ELIEL [Nurse Practitioner] - 02/19/21 11:00 am (Come to the surgeon's office after appointment with Dr. Gaitan to see Kareen) Nadeen Gaitan MD [STAFF PHYSICIAN] - 02/19/21 9:15 am [facility] ,[facility] [NON-STAFF] - 1 Week (You will be called in 4-6 weeks for evaluation for cardiac rehab) Miguel Bautista MD [Primary Care Provider] - 02/25/21 1:30 pm Ajay Dhillon MD [STAFF PHYSICIAN] - 03/11/21 1:00 pm Rinku Henley DO [Doctor of Osteopathic Medicine] - 03/11/21 1:45 pm [facility], [NON-STAFF] - 1 Week Asha Gaitan MD [REFERRING] - 1 Week Patient Instructions/Handouts: Pleural Effusion (DC), Anemia (DC), Type 2 Diabetes Management for Adults (DC) Activity/Diet/Wound Care/Special Instructions: DISCHARGE INSTRUCTIONS: 1. No driving for 4 weeks, or until physician gives their ok. 2. The patient should sleep in their own bed, no medical bed needed. 3. Stairs are not an issue. If the bedroom is upstairs, it is advised that the patient go up at night and down in the morning for the first week. Go slowly, using handrail and take 1 step at a time. 4. BRADEN hose are to be worn for 30 days or until physician discontinues. 5. Heart hugger is to be worn 100% of the time until physician discontinues.(except when showering) 6. No lifting, pushing, or pulling more than 10 pounds for 12 weeks. The physician will advise of any restriction changes. 7. The patient is expected to continue the prescribed walking program. 8. Continue pain control per as needed orders. 9. Continue with incentive spirometry and splinting/heart hugger until otherwise directed by the physician. 10. Must shower daily using liquid antibacterial soap and a separate white washcloth for each individual incision. 11. Routine sternal incision care. No powders, lotions, ointments on incisions. No dressings are necessary on incisions unless they are draining. Dermabond tape is to remain on sternal incision until surgeon follow-up. 12. Please call surgeon/OXYGRAPH OPERATOR for temp greater than 101 F or purulent drainage from incisions. 13. All prescriptions given by surgeon for 30 days. Refills need to be filled through supervisor sound technician/primary care physician. 14. A Red armband has been placed on the patient. It should be worn for 30 days post surgery and will be removed by the cardiac surgeons. If an ER visit is necessary, please make sure the number on the Red armband is called. 15. You have been referred to and are expected to begin Cardiac Rehab in approximately 4-6 weeks. 16. You should keep a log of your blood sugars and bring with you to your appointment with Dr. Bautista as well as follow up with Dr. Don HOME HEALTH SERVICES TO PROVIDE: RN SKILLED HOME CARE SERVICES FOR POST-OP SURGICAL PATIENTS WITH THE FOLLOWING: Coronary Artery Bypass Surgery (CABG), Mitral Valve Replacement/Repair ( MVR), Aortic Valve Replacement/Repair (AVR) RN TO CONTINUE EDUCATION FROM ``ROAD TO A HEALTH HEART PATIENT EDUCATION MANUAL (GIVEN TO PATIENT IN THE HOSPITAL) MEDICATION RECONCILIATION WITH EDUCATION NEEDED ON FIRST HOME VISIT EMPHASIZE IMPORTANCE OF WEARING BREAST SUPPORT/HEART HUGGER ENCOURAGE USE OF INCENTIVE SPIROMETER 10 X EVERY HOUR WHILE AWAKE ENCOURAGE UTILIZATION OF LOWER EXTREMITY COMPRESSION STOCKINGS/BRADEN HOSE and ELEVATE LEGS ABOVE LEVEL OF HEART WHILE AT REST. ENCOURAGE AMBULATION 3-5x/day INCREASING TOLERATES, WHILE AVOIDING EXTREMES IN TEMPERATURE FREQUENCY: RN TO OPEN THE PATIENT WITHIN 24 HOURS OF DISCHARGE FROM THE HOSPITAL WITH TELEHEALTH INSTALLED AT [facility] [place], RN TO VISIT 2-3 X A WEEK FOR 4 WEEKS ESTABLISHED BY PATIENT NEEDS. LABORATORY: CBC, CMP TO BE DRAWN ON THE THIRD DAY HOME, (RAN STAT) FAX RESULTS TO [phone]. TELEHEALTH PARAMETERS: WEIGHT: NOTIFY MD OF WEIGHT GAIN OF 2 LBS IN 24 HOURS OR 5 LBS IN ONE WEEK HR: NOTIFY MD OF HR <55 BPM OR HR>100 BPM BP: NOTIFY MD IF BP <90/55 OR BP>140/100 O2 SAT: NOTIFY MD IF PO2<93% ON ROOM AIR SEND TELEHEALTH REPORT TO CREEL SELECTOR AND CARDIOVASCULAR SURGEON THE FIRST WEEK OF CARE AND THEN BI-WEEKLY. PLEASE ADDITIONALLY COMMUNICATE ANY ABNORMALS AND NEW FINDINGS TO THE SURGEONS OFFICE. Discharge Disposition: HOME SELF-CARE
[2021-02-17] MEDS ORDERED: FUROSEMIDE 10 MG/ML 2 ML VIAL IV ONE (09:08)
[2021-02-17] MEDS: METOPROLOL TARTRATE 25 MG TAB PO SCH (09:51)
[2021-02-17] MEDS: CLOPIDOGREL 75 MG TAB PO SCH (09:51)
[2021-02-17] MEDS: DULoxetine HCL 60 MG CAPSULE.DR PO SCH (09:51)
[2021-02-17] MEDS: ASCORBIC ACID 500 MG TAB PO SCH (09:52)
[2021-02-17] MEDS: LORATADINE 10 MG TAB PO SCH (09:52)
[2021-02-17] MEDS: PANTOPRAZOLE 40 MG TABLET PO SCH (09:52)
[2021-02-17] MEDS: CHOLECALCIFEROL 25 MCG (1000 IU) TABLET PO SCH (09:52)
[2021-02-17] MEDS: MULTIVITAMINS, THERA 1 EACH TAB PO SCH (09:52)
[2021-02-17] MEDS: INSULIN ASPART (NovoLOG) 100 UNIT/ML VIAL SQ SCH ×2 (09:53→10:03)
[2021-02-17] MEDS: TROSPIUM CHLORIDE 20 MG TABLET PO SCH (09:57)
[2021-02-17] MEDS: ASPIRIN 81 MG PO SCH (09:58)
[2021-02-17] MEDS: DULoxetine HCL 30 MG CAPSULE.DR PO SCH (09:58)
[2021-02-17] MEDS: FINASTERIDE 5 MG TAB PO SCH (09:58)
[2021-02-17 10:08] VITALS: BP 100/69; PULSE 88; RESP 14; TEMP 97.6
--- NOTE | 2021-02-17 10:25 | P.PN ---
Subjective Progress Note Date: 02/17/21 HISTORY OF PRESENT ILLNESS: Patient examined this morning at the bedside. He is sitting up in the chair. Patient denies chest pain or pressure. Denies shortness of breath. Chest xray this morning reveals bilateral infiltrate and small effusion mildly progressed on the right. Limited echo completed revealed ejection fraction 40-45%. Distal septal hypokinesis. No pericardial effusion. Hemoglobin yesterday afternoon 9.5. Patient feels like his hematoma on his right thigh has gotten a little smaller today. Still mildly tender to touch. Vital signs stable. PHYSICAL EXAM: VITAL SIGNS: Reviewed. GENERAL: Well-developed in no acute distress. NECK: Supple. No JVD or thyromegaly LUNGS: Respirations even and unlabored. Lungs essentially clear to auscultation bilaterally. but diminished. HEART: Regular rate and rhythm. S1 and S2 heard. Heart hugger in place. EXTREMITIES: Normal range of motion. No clubbing or cyanosis. Peripheral pulses intact. No lower extremity edema ASSESSMENT: Tachycardia, resolved Shortness of breath, resolved Right thigh hematoma Anemia, s/p 1 unit RBC Coronary artery disease with recent CABG x 3 Hypertension Hyperlipidemia PLAN: Patient is stable for discharge home this afternoon from a cardiac standpoint Patient to follow up outpatient with Dr. Gaitan Nurse practitioner note has been reviewed by physician. Signing provider agrees with the documented findings, assessment, and plan of care. Objective - Vital Signs Vital signs: Vital Signs Temp 97.6 F 02/17/21 07:00 Pulse 88 02/17/21 08:00 Resp 14 02/17/21 07:00 BP 100/69 02/17/21 07:00 Pulse Ox 97 02/17/21 07:00 Intake & Output 02/16/21 02/17/21 02/17/21 18:59 06:59 18:59 Intake Total 180 236 Output Total 500 Balance 180 -500 236 Weight 85.275 kg Intake: Oral 180 236 Output: Urine 500 Other: Voiding Method Urinal # Voids 2 - Labs CBC & Chem 7: 02/16/21 16:55 02/15/21 20:31 Labs: Abnormal Lab Results - Last 24 Hours (Table) 02/15/21 02/16/21 02/16/21 Range/Units 22:55 15:15 16:55 WBC 12.4 H (3.8-10.6) k/uL RBC 2.86 L (4.30-5.90) m/uL Hgb 9.5 L (13.0-17.5) gm/dL Hct 28.5 L (39.0-53.0) % RDW 16.9 H (11.5-15.5) % Neutrophils # 9.7 H (1.3-7.7) k/uL POC Glucose (mg/dL) 245 H (75-99) mg/dL Procalcitonin 0.24 H (0.02-0.09) ng/mL 02/16/21 02/17/21 Range/Units 20:26 07:10 WBC (3.8-10.6) k/uL RBC (4.30-5.90) m/uL Hgb (13.0-17.5) gm/dL Hct (39.0-53.0) % RDW (11.5-15.5) % Neutrophils # (1.3-7.7) k/uL POC Glucose (mg/dL) 185 H 105 H (75-99) mg/dL Procalcitonin (0.02-0.09) ng/mL Microbiology - Last 24 Hours (Table) 02/15/21 22:49 Blood Culture - Preliminary Blood No Growth after 24 hours 02/15/21 23:15 Blood Culture - Preliminary Blood No Growth after 24 hours
[2021-02-17 11:27] LABS: HCT 28.9 % (39.6-50.0); HGB 8.8 g/dL (13.0-17.0); MCH 31.2 pg (27.0-32.0); MCHC 30.4 g/dL (32.0-37.0); MCV 102.5 fL (80.0-97.0); Mean Platelet Volume 11.8 fL (9.5-12.2); Platelet Count 230 X 10*3/uL (140-440); RBC 2.82 X 10*6/uL (4.40-5.60); RDW 16.5 % (11.5-14.5)
[2021-02-17 13:40] LABS: African American GFR (CKD) 86.8 (60.0-200.0); Anion Gap 15.9 mmol/L (4.00-12.00); Carbon Dioxide 18.1 mmol/L (21.6-31.8); Magnesium 2.1 mg/dL (1.5-2.4); Non-African American GFR(CKD) 74.9 (60.0-200.0); Potassium 4.8 mmol/L (3.5-5.5)
[2021-02-17 17:32] LABS: Hemoglobin A1C 6.7 % (4.0-6.0)
--- NOTE | 2021-02-17 17:48 | P.PN ---
Subjective Progress Note Date: 02/17/21 71-year-old male patient, coming into the hospital because of some increased shortness of breath and tachycardia and a low hemoglobin. Note that the patient has multivessel coronary artery disease. The patient underwent recent coronary artery bypass surgery after he had a cardiac catheterization that showed a left main disease. The patient underwent a four-vessel bypass surgery on 02/09/[address] Ajay Dhillon. The patient postop developed some anemia and the patient also developed a hematoma in the right upper thigh area. Note that the patient reported some increase in size of right upper extremity hematoma. The patient had some bruising and swelling and pain in the involved area specially in the middle thigh area. He came in to the emergency department and the patient was found to have a hemoglobin of 7.1 and note that the patient time of discharge his hemoglobin was at 7.4. Renal function was stable with a creatinine of 0.9. Troponins were minimally elevated. Based on the that, the patient was given a CT angiogram that showed small bilateral pleural effusions more so on the left which was an expected outcome of surgery. The white cells noted at 9.5 with a proBNP level of 555. The patient already received 2 units of packed RBC in the emergency department followed by 10 mg of IV Lasix. He was admitted to the hospital for further care. His comorbid conditions include CAD, diabetes mellitus with insulin dependence, hypertension and hyperlipidemia. History of CVA 2 and the patient has obstructive sleep apnea maintained on home CPAP therapy. He also has history of ulcerative colitis and the patient undergone previous colectomy and has a diverticulectomy which was functional postop without any major issues. No altered mentation. No focal neurological deficit. He is an ex-smoker. Patient is seen today 02/17/2021 in follow-up on the regular medical floor. He is currently sitting up at the bedside. Awake and alert in no acute distress. No worsening shortness of breath, cough or congestion. Maintaining O2 saturations in the mid 90s on room air. He's been afebrile. Hemodynamically stable. Blood cultures reveal no growth. He was taking and he. Hemoglobin 8.8. Sodium 138. Potassium 4.8. Creatinine 1.0. He is status post 1 unit of packed red blood cells since admission. Remains on IV diuretics. Chest x-ray reveals some bilateral infiltrates and small effusion. Doppler of the right lower extremity was negative for DVT. Objective - Vital Signs Vital signs: Vital Signs Temp 97.6 F 02/17/21 07:00 Pulse 88 02/17/21 08:00 Resp 14 02/17/21 07:00 BP 100/69 02/17/21 07:00 Pulse Ox 97 02/17/21 07:00 Intake & Output 02/16/21 02/17/21 02/17/21 18:59 06:59 18:59 Intake Total 180 236 Output Total 500 Balance 180 -500 236 Weight 85.275 kg Intake: Oral 180 236 Output: Urine 500 Other: Voiding Method Urinal # Voids 2 - Exam CONSTITUTIONAL: Awake and alert, very pleasant 70-year-old gentleman, appears comfortable, cooperative, well-developed, well-nourished, no pain, no acute distress EYES: Pupils equal, round, reactive to light, normal ocular movement ENT: Moist mucous membranes without oral lesions present NECK: No masses, no bruits, trachea midline RESPIRATORY: Lungs sounds diminished in the bases bilaterally. Respirations even, nonlabored. CARDIOVASCULAR: S1, S2 present. Regular rate and rhythm, sinus rhythm on telemetry. Sternum stable. Palpable peripheral pulses bilaterally. Right thigh edema present. No calf pain or tenderness noted. GASTROINTESTINAL: Abdomen soft, nontender, nondistended without masses or organomegaly noted. There is no rebound or guarding present. Active bowel sounds present 4 quadrants. Right-sided ileostomy present GENITOURINARY: Deferred INTEGUMENTARY: Skin is warm and dry. Sternal incision well approximated without redness or drainage. Right thigh area very ecchymotic and tender to the touch, ecchymosis still outlined without significant increase NEUROLOGIC: Cranial nerves II through XII intact, normal coordination, no obvious motor or sensory deficits, speech is normal MUSKULOSKELETAL: Able to move all extremities, strength equal bilaterally, normal posture PSYCHIATRIC: Alert and oriented to person place and time, appropriate affect, intact judgment and insight - Labs CBC & Chem 7: 02/17/21 07:43 02/17/21 07:43 Labs: Abnormal Lab Results - Last 24 Hours (Table) 02/16/21 02/17/21 02/17/21 Range/Units 20:26 07:10 07:43 WBC (4.50-10.00) X 10*3/uL RBC (4.40-5.60) X 10*6/uL Hgb (13.0-17.0) g/dL Hct (39.6-50.0) % MCV (80.0-97.0) fL MCHC (32.0-37.0) g/dL RDW (11.5-14.5) % Absolute Nucleated RBC (0.00-0.00) X 10*3/uL NRBC/100 WBC Diff (0.0-0.0) /100 WBCS Carbon Dioxide (21.6-31.8) mmol/L Anion Gap (4.00-12.00) mmol/L Glucose (70-110) mg/dL POC Glucose (mg/dL) 185 H 105 H (75-99) mg/dL Hemoglobin A1c 6.7 H (4.0-6.0) % 02/17/21 02/17/21 Range/Units 07:43 07:43 WBC 10.80 H (4.50-10.00) X 10*3/uL RBC 2.82 L (4.40-5.60) X 10*6/uL Hgb 8.8 L (13.0-17.0) g/dL Hct 28.9 L (39.6-50.0) % MCV 102.5 H (80.0-97.0) fL MCHC 30.4 L (32.0-37.0) g/dL RDW 16.5 H (11.5-14.5) % Absolute Nucleated RBC 0.02 H (0.00-0.00) X 10*3/uL NRBC/100 WBC Diff 0.2 H (0.0-0.0) /100 WBCS Carbon Dioxide 18.1 L (21.6-31.8) mmol/L Anion Gap 15.90 H (4.00-12.00) mmol/L Glucose 111 H (70-110) mg/dL POC Glucose (mg/dL) (75-99) mg/dL Hemoglobin A1c (4.0-6.0) % Microbiology - Last 24 Hours (Table) 02/15/21 22:49 Blood Culture - Preliminary Blood No Growth after 24 hours 02/15/21 23:15 Blood Culture - Preliminary Blood No Growth after 24 hours Assessment and Plan Assessment: 1 shortness of breath, multifactorial. The patient was quite tachycardic at time of admission off his metoprolol. Symptoms patient developed small bilateral pleural effusions, expected outcome of surgery. The patient was anemic with a hemoglobin of 7.1. He was also recovering from his four-vessel bypass surgery. Status post 1 unit of packed red blood cells. Current hemoglobin 8.8. A room air. 2 coronary artery disease, post four-vessel bypass surgery, off pump completed on 02/09/2021 3 bilateral pleural effusions 4 anemia, likely secondary to blood loss anemia following coronary artery bypass surgery, expected outcome 5 hypertension 6 hyperlipidemia 7 diabetes mellitus with insulin dependence with a preop hemoglobin A1c of 8.6 8 history of CVA without any residual deficits 9 history of ulcerative colitis post colectomy and the patient has a ileostomy which is quite functional at this point in time 10 obstructive sleep apnea Coumadin on home CPAP therapy 11 right thigh hematoma Plan The patient was seen and evaluated by Dr. Michelle Hopson from the pulmonary standpoint Home once cleared by CT services I, the cosigning physician, performed a history & physical examination of the patient. Lungs sounds with diminished breath sounds. Maintaining good O2 saturations in the 90s on room air. I discussed the assessment and plan of care with my nurse practitioner, Carin Gonzalez. I attest to the above note as dictated by her.
[2021-02-18] MEDS ORDERED: NON FORMULARY DRUG (Dulaglutide [Trulicity] 1.5 MG/0.5 ML Each) SQ SCH (07:27)
== END 2021-02-17 12:16 | disposition home or self-care (01) ==
LOC: EC 19:25 → 6NMEDSUR 23:07
PROVIDERS: ADMIT Family Medicine; ATTEND Family Medicine
DX: J90 Pleural effusion, not elsewhere classified (principal); I25.10 Atherosclerotic heart disease of native coronary artery without angina pectoris; J98.11 Atelectasis; I97.638 Postprocedural hematoma of a circulatory system organ or structure following other circulatory system procedure; D62 Acute posthemorrhagic anemia; Z79.82 Long term (current) use of aspirin; Z79.02 Long term (current) use of antithrombotics/antiplatelets; Z79.4 Long term (current) use of insulin; Z79.899 Other long term (current) drug therapy; Z88.5 Allergy status to narcotic agent; Z95.1 Presence of aortocoronary bypass graft; I48.91 Unspecified atrial fibrillation; Z86.73 Personal history of transient ischemic attack (TIA), and cerebral infarction without residual deficits; E11.65 Type 2 diabetes mellitus with hyperglycemia; E78.5 Hyperlipidemia, unspecified; F32.9 Major depressive disorder, single episode, unspecified; G47.33 Obstructive sleep apnea (adult) (pediatric); H91.90 Unspecified hearing loss, unspecified ear; S40.021A Contusion of right upper arm, initial encounter; I11.0 Hypertensive heart disease with heart failure; I31.3 Pericardial effusion (noninflammatory); I71.2 Thoracic aortic aneurysm, without rupture; K21.9 Gastro-esophageal reflux disease without esophagitis; K91.2 Postsurgical malabsorption, not elsewhere classified; N40.0 Benign prostatic hyperplasia without lower urinary tract symptoms; Z87.442 Personal history of urinary calculi; Z87.891 Personal history of nicotine dependence; Z90.49 Acquired absence of other specified parts of digestive tract; Z96.1 Presence of intraocular lens; Z96.659 Presence of unspecified artificial knee joint; Z98.41 Cataract extraction status, right eye; Z98.42 Cataract extraction status, left eye
CPT/HCPCS: 96376; 36430; 96374; 99285; 36415; 93005; 93308; 86900; 86901; 83880; 80053; 80048; 83605; 83735 ×2; 84484 ×2; 85025 ×2; 85027; 85610; 85730; 86850; 86920; 87040; 83036; 84145; 71046 ×2; 76604; 93971; 71275; G0378 ×3; P9016; S0138 ×2; J1940 ×2; Q9967

== ENCOUNTER → 2021-02-19 | Outpatient (CLI) | payer MEDICARE ==
[2021-02-19 16:47] LABS: Anisocytosis Slight; Basophils # (A) 0.1 k/uL (0-0.2); Basophils % (A) 1 %; Eosinophils # (A) 0.4 k/uL (0-0.7); Eosinophils % (A) 4 %; HCT 33.7 % (39.0-53.0); Hypochromasia Slight; Lymphocytes % (A) 10 %; MCH 32.5 pg (25.0-35.0); MCHC 32.7 g/dL (31.0-37.0); MCV 99.5 fL (80.0-100.0); Macrocytosis Slight; Mean Platelet Volume 8.7; Monocytes # (A) 0.5 k/uL (0-1.0); Monocytes % (A) 5 %; Neutrophils % (A) 78 %; Platelet Count 359 k/uL (150-450); Poikilocytosis Slight; RBC 3.39 m/uL (4.30-5.90); WBC 10.3 k/uL (3.8-10.6)
[2021-02-19 16:57] LABS: ALT 36 U/L (4-49); AST 70 U/L (17-59); African American GFR (CKD) 82 (>60 ml/min/1.73 sqM); Albumin 4.6 g/dL (3.5-5.0); Albumin/Globulin Ratio 1.4; Alkaline Phosphatase 116 U/L (38-126); Anion Gap 13 mmol/L; Blood Urea Nitrogen 26 mg/dL (9-20); Calcium 9.8 mg/dL (8.4-10.2); Carbon Dioxide 21 mmol/L (22-30); Chloride 102 mmol/L (98-107); Globulin 3.3 g/dL; Glucose 123 mg/dL (74-99); Magnesium 2.3 mg/dL (1.6-2.3); Non-African American GFR(CKD) 71 (>60 ml/min/1.73 sqM); Potassium 4.7 mmol/L (3.5-5.1); Sodium 136 mmol/L (137-145); Total Bilirubin 1.8 mg/dL (0.2-1.3); Total Protein 7.9 g/dL (6.3-8.2)
== END | disposition home or self-care (01) ==
LOC: LABWHC1 16:04
PROVIDERS: ATTEND Nurse Practitioner Acute Care
DX: Z48.812 Encounter for surgical aftercare following surgery on the circulatory system (principal)
CPT/HCPCS: 36415; 80053; 83735; 85025

== ENCOUNTER → 2021-03-24 | Outpatient (CLI) | payer MEDICARE ==
[2021-03-24 17:48] LABS: HGB 12.6 g/dL (13.0-17.0); MCH 29.9 pg (27.0-32.0); MCHC 30.7 g/dL (32.0-37.0); MCV 97.4 fL (80.0-97.0); Mean Platelet Volume 12.9 fL (9.5-12.2); Platelet Count 147 X 10*3/uL (140-440); RBC 4.21 X 10*6/uL (4.40-5.60); RDW 14.5 % (11.5-14.5); WBC 4.88 X 10*3/uL (4.50-10.00)
[2021-03-24 22:29] LABS: T4, Free (Free Thyroxine) 0.79 ng/dL (0.800-1.800)
[2021-03-25 04:41] LABS: Magnesium 2.3 mg/dL (1.5-2.4)
[2021-03-25 05:04] LABS: Albumin 4.4 g/dL (3.8-4.9); Albumin/Globulin Ratio 1.58 (1.60-3.17); Anion Gap 21.8 mmol/L (4.00-12.00); BUN/Creat Ratio 12.68 Ratio (12.00-20.00); Blood Urea Nitrogen 16.1 mg/dL (9.0-27.0); Calcium 9.6 mg/dL (8.7-10.3); Carbon Dioxide 13.1 mmol/L (21.6-31.8); Globulin 2.8 g/dL (1.6-3.3); Non-African American GFR(CKD) 56.1 (60.0-200.0); Potassium 4.8 mmol/L (3.5-5.5); Total Bilirubin 0.4 mg/dL (0.30-1.20); Total Protein 7.1 g/dL (6.2-8.2)
== END | disposition home or self-care (01) ==
LOC: LABWHC1 10:25
PROVIDERS: ATTEND Internal Medicine Interventional Cardiology
DX: E03.9 Hypothyroidism, unspecified (principal); I25.10 Atherosclerotic heart disease of native coronary artery without angina pectoris; E11.9 Type 2 diabetes mellitus without complications
CPT/HCPCS: 36415; 80053; 83735; 84439; 84443; 85027

== ENCOUNTER 2021-04-24 19:02 | Emergency (ER) | payer MEDICARE ==
[2021-04-24] MEDS ORDERED: SODIUM CHLORIDE 0.9% 500 ML 500 ML IV STA (20:31)
--- NOTE | 2021-04-24 20:31 | ED ---
General Adult HPI - General Chief complaint: Fever Stated complaint: Headache,Fever Time Seen by Provider: 04/24/21 20:08 Source: patient, family Mode of arrival: ambulatory Limitations: no limitations - History of Present Illness Initial comments: Dictation was produced using [id number] dictation software. please excuse any grammatical, word or spelling errors. Chief Complaint: 70-year-old male past medical history of coronary artery d isease, status post bypass, ileostomy since emergency Department with fever and chills and urinary frequency. History of Present Illness: She is 70-year-old male who presents to the emergency department for constitutional symptoms, urinary frequency. Patient states she's been feeling under the weather for the last 3 days. Today he had a temperature checked by his was at the bedside reports that he had temperatures measuring approximately 102F. No obvious sick contacts. He complains of urinary frequency, chills, episodic headaches and myalgias. Denies any sore throat. No runny nose. Dental pain. No rashes. The ROS documented in this emergency department record has been reviewed and confirmed by me. Those systems with pertinent positive or negative responses have been documented in the HPI. All other systems are other negative and/or noncontributory. PHYSICAL EXAM: General Impression: Alert and oriented x3, not in acute distress HEENT: Normocephalic atraumatic, extra-ocular movements intact, pupils equal and reactive to light bilaterally, mucous membranes moist. Cardiovascular: Heart regular rate and rhythm Chest: Able to complete full sentences, no retractions, no tachypnea Abdomen: abdomen soft, non-tender, non-distended, no organomegaly Musculoskeletal: Pulses present and equal in all extremities, no peripheral edema Motor: no focal deficits noted Neurological: CN II-XII grossly intact, no focal motor or sensory deficits noted Skin: Intact with no visualized rashes Psych: Normal affect and mood ED course: 70-year-old now presents emergency department for constitutional symptoms and urinary frequency. Vital signs upon arrival are within acceptable limits. Patient's provided patient with Tylenol at approximately 3 PM Laboratory evaluation obtained. CBC unremarkable. Metabolic panel shows mild hyponatremia. Mild acidosis with patient's history of low bicarb. Urinalysis negative for UTI. Negative for coronavirus. Negative for RSV. Chest x-ray is nonacute. Patient was given emergency department for approximately 3 hours and 20 minutes found to be stable medical condition. Disposition options were discussed. Patient is agreeable with discharge. He is advised to follow-up with his primary care doctor and to return if he has worsening symptoms otherwise he is told to monitor his symptoms at home. - Related Data Home Medications Medication Instructions Recorded Confirmed Atorvastatin [Lipitor] 40 mg PO HS 02/06/17 02/15/21 DULoxetine HCL [Cymbalta] 60 mg PO DAILY 02/06/17 02/15/21 Finasteride [Proscar] 5 mg PO DAILY 02/06/17 02/15/21 Multivit-Min/FA/Lycopen/Lutein 1 cap PO DAILY 02/06/17 02/15/21 [Centrum Silver Men Tablet] Tamsulosin [Flomax] 0.4 mg PO HS 02/06/17 02/15/21 Trospium Chloride [Sanctura] 20 mg PO BID 02/06/17 02/15/21 Cholecalciferol [Vitamin D3 (25 1,000 unit PO DAILY 11/19/17 02/15/21 Mcg = 1000 Iu)] Ferrous Sulfate [Iron (65 MG 325 mg PO HS 12/18/17 02/15/21 Elemental)] Omeprazole 40 mg PO DAILY 12/05/18 02/15/21 Ascorbic Acid [Vitamin C] 1,000 mg PO DAILY 08/29/20 02/15/21 Cranberry Fruit Extract [Cranberry] 450 mg PO DAILY #0 08/29/20 02/15/21 Loratadine [Claritin] 10 mg PO DAILY 08/29/20 02/15/21 Turmeric Root Extract [Turmeric] 1,000 mg PO BID 08/29/20 02/15/21 Dulaglutide [Trulicity] 1.5 mg SQ TH 02/01/21 02/15/21 Aspirin 81 mg PO DAILY 02/08/21 02/15/21 DULoxetine HCL [Cymbalta] 30 mg PO DAILY 02/15/21 02/15/21 Previous Rx's Medication Instructions Recorded Acetaminophen Tab [Tylenol] 650 mg PO Q4HR PRN tab 02/14/21 Clopidogrel [Plavix] 75 mg PO DAILY #30 tab 02/14/21 Cyclobenzaprine [Flexeril] 5 mg PO TID PRN #90 tab 02/14/21 INSULIN LISPRO (HumaLOG) [humaLOG] 4 units SQ TID-W/MEALS #0 02/14/21 Insulin Glargine,Hum.rec.anlog 40 unit SQ HS #0 02/14/21 [Basaglgaby Morenopen U-100] Lidocaine 4% Cream [Lmx 4] 1 applic TOPICAL TID 02/14/21 Melatonin 5 mg PO HS PRN tablet 02/14/21 Metoprolol Tartrate [Lopressor] 75 mg PO BID #120 tab 02/14/21 Furosemide [Lasix] 20 mg PO DAILY #30 tab 02/17/21 Potassium Chloride ER [K-Dur 10] 10 meq PO DAILY #30 tab 02/17/21 Allergies Allergy/AdvReac Type Severity Reaction Status Date / Time codeine Allergy Rash/Hives Verified 04/24/21 19:42 morphine Allergy Rash/Hives Verified 04/24/21 19:42 Review of Systems ROS Statement: Those systems with pertinent positive or pertinent negative responses have been documented in the HPI. ROS Other: All systems not noted in ROS Statement are negative. Past Medical History Past Medical History: Atrial Fibrillation, Coronary Artery Disease (CAD), CVA/TIA, Diabetes Mellitus, Eye Disorder, Hearing Disorder / Deafness, Hyperlipidemia, Hypertension, Sleep Apnea/CPAP/BIPAP Additional Past Medical History / Comment(s): 05/2015 CVA and 08/2017, continues to have occasional balance issues. ., Ulcerative Colitis, hx kidney stone. BPH. illeostomy placed March 19, 2018 uses cpap at home for sleep apnea History of Any Multi-Drug Resistant Organisms: None Reported Past Surgical History: Appendectomy, Bowel Resection, Coronary Bypass/CABG, Heart Catheterization, Hernia Repair, Joint Replacement Additional Past Surgical History / Comment(s): APPENDEX RUPTURE, HAD J pouch. Left partial knee replacement. COLONOSCOPY, bilateral cataract extraction with lens implants, mesh with hernia repair, exama, colectomy with ileostomy, off- pump four-vessel CABG 02/09/2021 Past Anesthesia/Blood Transfusion Reactions: No Reported Reaction Additional Past Anesthesia/Blood Transfusion Reaction / Comment(s): PATIENT HAD SURGERY FOR LEFT EYE DETACHED RETINA AND DEVELOPED GAS BUBBLE IN L EYE. HE WAS INSTRUCTED TO NOT RECEIVE NITROUS OXIDE OR RIDE IN A PLANE UNTIL GAS BUBBLE IS GONE. Past Psychological History: Depression Smoking Status: Former smoker Past Alcohol Use History: Occasional, Rare Past Drug Use History: None Reported - Past Family History Mother Family Medical History: Cancer, Diabetes Mellitus Additional Family Medical History / Comment(s): Mother at age 84 from [place] Father Additional Family Medical History / Comment(s): Father is with history of coronary artery disease. Patient has 4 children that are healthy with no major medical problems. Brother(s) Additional Family Medical History / Comment(s): Patient has 4 brothers. Two at the age of 44 from coronary artery disease with history of tobacco use and alcohol dependence. One from aneurysm in the chest. General Exam Limitations: no limitations Course Vital Signs 04/24/21 19:36 Temperature 97.8 F Pulse Rate 73 Respiratory 18 Rate Blood Pressure 97/69 O2 Sat by Pulse 98 Oximetry Medical Decision Making - Lab Data Result diagrams: 04/24/21 21:00 04/24/21 21:00 Lab Results 04/24/21 04/24/21 04/24/21 Range/Units 20:26 20:26 21:00 WBC 9.3 (3.8-10.6) k/uL RBC 4.57 (4.30-5.90) m/uL Hgb 13.8 (13.0-17.5) gm/dL Hct 40.2 (39.0-53.0) % MCV 88.1 D (80.0-100.0) fL MCH 30.3 (25.0-35.0) pg MCHC 34.4 (31.0-37.0) g/dL RDW 14.8 (11.5-15.5) % Plt Count 135 L D (150-450) k/uL MPV 10.9 Neutrophils % 82 % Lymphocytes % 6 % Monocytes % 8 % Eosinophils % 1 % Basophils % 0 % Neutrophils # 7.6 (1.3-7.7) k/uL Lymphocytes # 0.5 L (1.0-4.8) k/uL Monocytes # 0.7 (0-1.0) k/uL Eosinophils # 0.1 (0-0.7) k/uL Basophils # 0.0 (0-0.2) k/uL Sodium (137-145) mmol/L Potassium (3.5-5.1) mmol/L Chloride (98-107) mmol/L Carbon Dioxide (22-30) mmol/L Anion Gap mmol/L BUN (9-20) mg/dL Creatinine (0.66-1.25) mg/dL Est GFR (CKD-EPI)AfAm (>60 ml/min/1.73 sqM) Est GFR (CKD-EPI)NonAf (>60 ml/min/1.73 sqM) Glucose (74-99) mg/dL Calcium (8.4-10.2) mg/dL Urine Color Yellow Urine Appearance Clear (Clear) Urine pH 5.5 (5.0-8.0) Ur Specific Breese 1.021 (1.001-1.035) Urine Protein Trace H (Negative) Urine Glucose (UA) 4+ H (Negative) Urine Ketones Negative (Negative) Urine Blood Negative (Negative) Urine Nitrite Negative (Negative) Urine Bilirubin Negative (Negative) Urine Urobilinogen <2.0 (<2.0) mg/dL Ur Leukocyte Esterase Negative (Negative) Coronavirus (PCR) Not Detected (Not Detectd) RSV (PCR) (Negative) 04/24/21 04/24/21 Range/Units 21:00 21:39 WBC (3.8-10.6) k/uL RBC (4.30-5.90) m/uL Hgb (13.0-17.5) gm/dL Hct (39.0-53.0) % MCV (80.0-100.0) fL MCH (25.0-35.0) pg MCHC (31.0-37.0) g/dL RDW (11.5-15.5) % Plt Count (150-450) k/uL MPV Neutrophils % % Lymphocytes % % Monocytes % % Eosinophils % % Basophils % % Neutrophils # (1.3-7.7) k/uL Lymphocytes # (1.0-4.8) k/uL Monocytes # (0-1.0) k/uL Eosinophils # (0-0.7) k/uL Basophils # (0-0.2) k/uL Sodium 130 L (137-145) mmol/L Potassium 4.4 (3.5-5.1) mmol/L Chloride 102 (98-107) mmol/L Carbon Dioxide 16 L (22-30) mmol/L Anion Gap 12 mmol/L BUN 19 (9-20) mg/dL Creatinine 1.25 (0.66-1.25) mg/dL Est GFR (CKD-EPI)AfAm 67 (>60 ml/min/1.73 sqM) Est GFR (CKD-EPI)NonAf 58 (>60 ml/min/1.73 sqM) Glucose 149 H (74-99) mg/dL Calcium 9.4 (8.4-10.2) mg/dL Urine Color Urine Appearance (Clear) Urine pH (5.0-8.0) Ur Specific Breese (1.001-1.035) Urine Protein (Negative) Urine Glucose (UA) (Negative) Urine Ketones (Negative) Urine Blood (Negative) Urine Nitrite (Negative) Urine Bilirubin (Negative) Urine Urobilinogen (<2.0) mg/dL Ur Leukocyte Esterase (Negative) Coronavirus (PCR) (Not Detectd) RSV (PCR) Negative (Negative) Disposition Clinical Impression: Fever Disposition: HOME SELF-CARE Condition: Good Instructions (If sedation given, give patient instructions): Fever in Adults (ED) Is patient prescribed a controlled substance at d/c from ED?: No Referrals: Miguel Bautista MD [Primary Care Provider] - 1-2 days
[2021-04-24 20:34] LABS: Appearance,Urine Clear (Clear); Bilirubin,Urine Negative (Negative); Blood,Urine Negative (Negative); Color,Urine Yellow; Glucose,Urine (UA) 4+ (Negative); Ketones,Urine Negative (Negative); Leukocyte Esterase,Urine Negative (Negative); Nitrite,Urine Negative (Negative); PH, Urine 5.5 (5.0-8.0); Protein,Urine Trace (Negative); Specific Gravity,Urine 1.021 (1.001-1.035); Urobilinogen,Urine <2.0 mg/dL (<2.0)
[2021-04-24 21:16] LABS: WBC 9.3 k/uL (3.8-10.6)
[2021-04-24 21:17] LABS: Basophils % (A) 0 %; Eosinophils # (A) 0.1 k/uL (0-0.7); Eosinophils % (A) 1 %; HCT 40.2 % (39.0-53.0); HGB 13.8 gm/dL (13.0-17.5); Lymphocytes # (A) 0.5 k/uL (1.0-4.8); Lymphocytes % (A) 6 %; MCH 30.3 pg (25.0-35.0); MCHC 34.4 g/dL (31.0-37.0); Mean Platelet Volume 10.9; Monocytes # (A) 0.7 k/uL (0-1.0); Monocytes % (A) 8 %; Neutrophils # (A) 7.6 k/uL (1.3-7.7); Neutrophils % (A) 82 %; RBC 4.57 m/uL (4.30-5.90); RDW 14.8 % (11.5-15.5)
[2021-04-24 21:21] LABS: MCV 88.1 fL (80.0-100.0); Platelet Count 135 k/uL (150-450)
--- NOTE | 2021-04-24 21:24 | XR ---
EXAMINATION TYPE: XR chest 1V portable DATE OF EXAM: 04/24/2021 COMPARISON: 03/11/2021 HISTORY: Fever TECHNIQUE: FINDINGS: Heart is normal. Lungs are clear of infiltrate. There is no heart failure. There are sterna l wires. Costophrenic angles are clear. IMPRESSION: No active cardiopulmonary disease. Normal heart. No change.
[2021-04-24 21:36] LABS: Calcium 9.4 mg/dL (8.4-10.2); Potassium 4.4 mmol/L (3.5-5.1)
[2021-04-24 22:48] VITALS: BP 101/60; PULSE 84; RESP 20; TEMP 98
== END 2021-04-24 22:47 | disposition home or self-care (01) ==
LOC: EC 19:02
DX: R50.9 Fever, unspecified (principal); I25.10 Atherosclerotic heart disease of native coronary artery without angina pectoris; I48.91 Unspecified atrial fibrillation; E11.9 Type 2 diabetes mellitus without complications; E78.5 Hyperlipidemia, unspecified; I10 Essential (primary) hypertension; F32.A Depression, unspecified; Z20.822 Contact with and (suspected) exposure to COVID-19; Z79.82 Long term (current) use of aspirin; Z79.4 Long term (current) use of insulin; Z88.5 Allergy status to narcotic agent; Z79.02 Long term (current) use of antithrombotics/antiplatelets; Z86.73 Personal history of transient ischemic attack (TIA), and cerebral infarction without residual deficits; Z87.442 Personal history of urinary calculi; Z90.49 Acquired absence of other specified parts of digestive tract; Z96.652 Presence of left artificial knee joint; Z87.891 Personal history of nicotine dependence; Z95.1 Presence of aortocoronary bypass graft; Z79.899 Other long term (current) drug therapy
CPT/HCPCS: 36415; 71045; 80048; 81003; 85025; 87040; 87634; 87635; 99284

== ENCOUNTER → 2021-06-03 | Outpatient (CLI) | payer MEDICARE ==
[2021-06-03 14:35] LABS: Basophils # (A) 0.07 X 10*3/uL (0.00-0.10); Basophils % (A) 0.8 %; Eosinophils # (A) 0.12 X 10*3/uL (0.04-0.35); Eosinophils % (A) 1.3 %; HCT 49.8 % (39.6-50.0); HGB 15.5 g/dL (13.0-17.0); Lymphocytes % (A) 15.6 %; MCH 27.9 pg (27.0-32.0); MCHC 31.1 g/dL (32.0-37.0); MCV 89.7 fL (80.0-97.0); Mean Platelet Volume 12.7 fL (9.5-12.2); Monocytes # (A) 0.74 X 10*3/uL (0.20-1.00); Monocytes % (A) 8.3 %; Neutrophils # (A) 6.57 X 10*3/uL (1.80-7.70); Neutrophils % (A) 73.3 %; Platelet Count 242 X 10*3/uL (140-440); RBC 5.55 X 10*6/uL (4.40-5.60); RDW 14.7 % (11.5-14.5); WBC 8.96 X 10*3/uL (4.50-10.00)
[2021-06-03 16:02] LABS: ALT 30 U/L (10-49); AST 33 U/L (14-35); African American GFR (CKD) 62.2 (60.0-200.0); Albumin 4.9 g/dL (3.8-4.9); Albumin/Globulin Ratio 1.56 (1.60-3.17); Alkaline Phosphatase 133 U/L (41-126); BUN/Creat Ratio 17.63 Ratio (12.00-20.00); Blood Urea Nitrogen 23.1 mg/dL (9.0-27.0); Calcium 10.1 mg/dL (8.7-10.3); Carbon Dioxide 17.8 mmol/L (20.0-27.5); Chloride 104 mmol/L (96-109); Chol/HDL Ratio 2.93 Ratio; Globulin 3.2 g/dL (1.6-3.3); Glucose 170 mg/dL (70-110); LDL Cholesterol,Calculated 21.9 mg/dL (0.0-131.0); Non-African American GFR(CKD) 53.6 (60.0-200.0); Potassium 5.1 mmol/L (3.5-5.5); Sodium 136 mmol/L (135-145); Total Protein 8.1 g/dL (6.2-8.2)
[2021-06-03 18:52] LABS: Microalbumin Creatinine Ratio <30 mg/g Creat (0-30); Urine Creatinine 85.6 mg/dL (39.0-259.0)
== END | disposition home or self-care (01) ==
LOC: LABWHC1 09:45
PROVIDERS: ATTEND Internal Medicine Geriatric Medicine
DX: E11.65 Type 2 diabetes mellitus with hyperglycemia (principal); I25.810 Atherosclerosis of coronary artery bypass graft(s) without angina pectoris; I48.0 Paroxysmal atrial fibrillation
CPT/HCPCS: 36415; 80053; 80061; 82043; 82570; 83036; 84443; 85025

== ENCOUNTER → 2021-09-29 | Outpatient (CLI) | payer MEDICARE ==
[2021-09-29 15:05] LABS: Basophils # (A) 0.04 X 10*3/uL (0.00-0.10); Basophils % (A) 0.4 %; Eosinophils # (A) 0.12 X 10*3/uL (0.04-0.35); Eosinophils % (A) 1.2 %; HCT 43.9 % (39.6-50.0); HGB 13.9 g/dL (13.0-17.0); Immature Grans, Automated 0.9 %; Lymphocytes # (A) 0.81 X 10*3/uL (0.90-5.00); Lymphocytes % (A) 7.9 %; MCH 29.6 pg (27.0-32.0); MCHC 31.7 g/dL (32.0-37.0); MCV 93.6 fL (80.0-97.0); Mean Platelet Volume 13.7 fL (9.5-12.2); Monocytes # (A) 1.19 X 10*3/uL (0.20-1.00); Monocytes % (A) 11.6 %; NRBC Per 100 WBC 0 /100 WBCS (0.0-0.0); Neutrophils # (A) 7.97 X 10*3/uL (1.80-7.70); Platelet Count 167 X 10*3/uL (140-440); RBC 4.69 X 10*6/uL (4.40-5.60); RDW 14.7 % (11.5-14.5); WBC 10.22 X 10*3/uL (4.50-10.00)
[2021-09-29 15:16] LABS: ALT 23 U/L (10-49); AST 26 U/L (14-35); African American GFR (CKD) 63.9 (60.0-200.0); Albumin 4.4 g/dL (3.8-4.9); Alkaline Phosphatase 133 U/L (41-126); BUN/Creat Ratio 17.27 Ratio (12.00-20.00); Blood Urea Nitrogen 22.1 mg/dL (9.0-27.0); Calcium 9.8 mg/dL (8.7-10.3); Carbon Dioxide 18.3 mmol/L (20.0-27.5); Chloride 104 mmol/L (96-109); Chol/HDL Ratio 2.59 Ratio; Globulin 3.1 g/dL (1.6-3.3); Glucose 147 mg/dL (70-110); LDL Cholesterol,Calculated 27.9 mg/dL (0.0-131.0); Non-African American GFR(CKD) 55.2 (60.0-200.0); Potassium 4.7 mmol/L (3.5-5.5); Sodium 134 mmol/L (135-145); Total Protein 7.5 g/dL (6.2-8.2)
== END | disposition home or self-care (01) ==
LOC: LABWHC1 08:31
PROVIDERS: ATTEND Internal Medicine Geriatric Medicine
DX: I25.810 Atherosclerosis of coronary artery bypass graft(s) without angina pectoris (principal); E78.2 Mixed hyperlipidemia; E11.65 Type 2 diabetes mellitus with hyperglycemia; N40.1 Benign prostatic hyperplasia with lower urinary tract symptoms; I49.9 Cardiac arrhythmia, unspecified
CPT/HCPCS: 36415; 80053; 80061; 83036; 84153; 84443; 85025

== ENCOUNTER → 2021-11-09 | Outpatient (CLI) | payer MEDICARE ==
--- NOTE | 2021-11-09 14:52 | CT ---
EXAMINATION TYPE: CT abdomen pelvis w con DATE OF EXAM: 11/09/2021 COMPARISON: CT abdomen and pelvis August 29, 2020 HISTORY: COLITIS CT DLP: 1115 mGycm, Automated Exposure Control for Dose Reduction was Utilized. CONTRAST: CT scan of the abdomen and pelvis is performed with oral and with IV Contrast, patient injected with 100 ML mL of Isovue 300. FINDINGS: LUNG BASES: No significant abnormality is appreciated. LIVER/GB: Contracted gallbladder on current study. PANCREAS: No significant abnormality is seen. SPLEEN: No significant abnormality is seen. ADRENALS: No significant abnormality is seen. KIDNEYS: Some simple-appearing thin-walled cysts scattered throughout the left kidney are redemonstra dayanara. BOWEL: Contrast reaches right-sided ostomy. No suspicious small bowel dilatation. Surgical changes to right pelvic bowel loop redemonstrated. Colectomy changes including absent rectum redemonstrated. No suspicious wall thickening or fat stranding currently. PROSTATE/SEMINAL VESICLES: Scattered pelvic phleboliths. Heterogeneous prostate gland measures upper limits of normal in size. LYMPH NODES: No greater than 1cm abdominal or pelvic lymph nodes are appreciated. OSSEOUS STRUCTURES: No significant abnormality is seen. OTHER: Moderate calcified plaque of the aorta extends into branch vessels. Vertical oriented scar in the anterior abdominal wall is redemonstrated. IMPRESSION: Total colectomy changes redemonstrated. There is right-sided ileostomy redemonstrated. No suspicious wall thickening or fat stranding to suggest colitis currently.
== END | disposition home or self-care (01) ==
LOC: RADCTMAIN 12:29
PROVIDERS: ATTEND Internal Medicine Geriatric Medicine
DX: K52.9 Noninfective gastroenteritis and colitis, unspecified (principal); Z90.49 Acquired absence of other specified parts of digestive tract; Z93.2 Ileostomy status
CPT/HCPCS: 82565; 84520; 74177; 36415; Q9967

== ENCOUNTER 2021-11-25 10:46 | Emergency (ER) | payer MEDICARE ==
[2021-11-25] MEDS ORDERED: SODIUM CHLORIDE 0.9% 1,000 ML IV ONE ×2 (15:29→16:57)
[2021-11-25 15:48] LABS: Basophils # (A) 0.1 k/uL (0-0.2); Basophils % (A) 1 %; Eosinophils # (A) 0.2 k/uL (0-0.7); Eosinophils % (A) 2 %; HCT 44.2 % (39.0-53.0); HGB 14.3 gm/dL (13.0-17.5); Lymphocytes # (A) 1.3 k/uL (1.0-4.8); Lymphocytes % (A) 12 %; MCH 29.7 pg (25.0-35.0); MCHC 32.4 g/dL (31.0-37.0); MCV 91.8 fL (80.0-100.0); Mean Platelet Volume 10.9; Monocytes # (A) 1.1 k/uL (0-1.0); Monocytes % (A) 10 %; Neutrophils # (A) 8.1 k/uL (1.3-7.7); Neutrophils % (A) 73 %; Platelet Count 219 k/uL (150-450); RBC 4.82 m/uL (4.30-5.90); RDW 14.5 % (11.5-15.5); WBC 11.1 k/uL (3.8-10.6)
[2021-11-25 15:51] VITALS: RESP 18
--- NOTE | 2021-11-25 15:59 | ED ---
Weakness HPI - General Chief complaint: Weakness Stated complaint: Dehydration Time Seen by Provider: 11/25/21 14:58 Source: patient Mode of arrival: ambulatory Limitations: no limitations - History of Present Illness Initial comments: Steve is a pleasant 71-year-old gentleman with a history of ileostomy who reports that for the past few days he's had higher output and despite trying to drink plenty of fluids however he started to feel weak and dehydrated. Patient presents the ER today stating that he feels like he needs IV fluid rehydration. He states that today the ileostomy output is decreased. He has been prescribed medications in the past to slow his ileostomy output however they usually resolve hyperglycemia therefore he doesn't typically take them. Patient denies any other fevers chills abdominal pain nausea or vomiting. He reports he is otherwise feeling well. - Related Data Home Medications Medication Instructions Recorded Confirmed Atorvastatin [Lipitor] 40 mg PO HS 02/06/17 02/15/21 DULoxetine HCL [Cymbalta] 60 mg PO DAILY 02/06/17 02/15/21 Finasteride [Proscar] 5 mg PO DAILY 02/06/17 02/15/21 Multivit-Min/FA/Lycopen/Lutein 1 cap PO DAILY 02/06/17 02/15/21 [Centrum Silver Men Tablet] Tamsulosin [Flomax] 0.4 mg PO HS 02/06/17 02/15/21 Trospium Chloride [Sanctura] 20 mg PO BID 02/06/17 02/15/21 Cholecalciferol [Vitamin D3 (25 1,000 unit PO DAILY 11/19/17 02/15/21 Mcg = 1000 Iu)] Ferrous Sulfate [Iron (65 MG 325 mg PO HS 12/18/17 02/15/21 Elemental)] Omeprazole 40 mg PO DAILY 12/05/18 02/15/21 Ascorbic Acid [Vitamin C] 1,000 mg PO DAILY 08/29/20 02/15/21 Cranberry Fruit Extract [Cranberry] 450 mg PO DAILY #0 08/29/20 02/15/21 Loratadine [Claritin] 10 mg PO DAILY 08/29/20 02/15/21 Turmeric Root Extract [Turmeric] 1,000 mg PO BID 08/29/20 02/15/21 Dulaglutide [Trulicity] 1.5 mg SQ TH 02/01/21 02/15/21 Aspirin 81 mg PO DAILY 02/08/21 02/15/21 DULoxetine HCL [Cymbalta] 30 mg PO DAILY 02/15/21 02/15/21 Previous Rx's Medication Instructions Recorded Acetaminophen Tab [Tylenol] 650 mg PO Q4HR PRN tab 02/14/21 Clopidogrel [Plavix] 75 mg PO DAILY #30 tab 02/14/21 Cyclobenzaprine [Flexeril] 5 mg PO TID PRN #90 tab 02/14/21 INSULIN LISPRO (HumaLOG) [humaLOG] 4 units SQ TID-W/MEALS #0 02/14/21 Insulin Glargine,Hum.rec.anlog 40 unit SQ HS #0 02/14/21 [Basaglar Kwikpen U-100] Lidocaine 4% Cream [Lmx 4] 1 applic TOPICAL TID 02/14/21 Melatonin 5 mg PO HS PRN tablet 02/14/21 Metoprolol Tartrate [Lopressor] 75 mg PO BID #120 tab 02/14/21 Furosemide [Lasix] 20 mg PO DAILY #30 tab 02/17/21 Potassium Chloride ER [K-Dur 10] 10 meq PO DAILY #30 tab 02/17/21 Allergies Allergy/AdvReac Type Severity Reaction Status Date / Time codeine Allergy Rash/Hives Verified 11/25/21 18:28 morphine Allergy Rash/Hives Verified 11/25/21 18:28 Review of Systems ROS Statement: Those systems with pertinent positive or pertinent negative responses have been documented in the HPI. ROS Other: All systems not noted in ROS Statement are negative. Past Medical History Past Medical History: Atrial Fibrillation, Coronary Artery Disease (CAD), CVA/TIA, Diabetes Mellitus, Eye Disorder, Hearing Disorder / Deafness, Hyperlipidemia, Hypertension, Sleep Apnea/CPAP/BIPAP Additional Past Medical History / Comment(s): 05/2015 CVA and 08/2017, continues to have occasional balance issues. ., Ulcerative Colitis, hx kidney stone. B PH. illeostomy placed March 19, 2018 uses cpap at home for sleep apnea History of Any Multi-Drug Resistant Organisms: None Reported Past Surgical History: Appendectomy, Bowel Resection, Coronary Bypass/CABG, Heart Catheterization, Hernia Repair, Joint Replacement Additional Past Surgical History / Comment(s): APPENDEX RUPTURE, HAD J pouch. Left partial knee replacement. COLONOSCOPY, bilateral cataract extraction with lens implants, mesh with hernia repair, exama, colectomy with ileostomy, off- pump four-vessel CABG 02/09/2021 Past Anesthesia/Blood Transfusion Reactions: No Reported Reaction Additional Past Anesthesia/Blood Transfusion Reaction / Comment(s): PATIENT HAD SURGERY FOR LEFT EYE DETACHED RETINA AND DEVELOPED GAS BUBBLE IN L EYE. HE WAS INSTRUCTED TO NOT RECEIVE NITROUS OXIDE OR RIDE IN A PLANE UNTIL GAS BUBBLE IS GONE. Past Psychological History: Depression Smoking Status: Former smoker Past Alcohol Use History: Occasional, Rare Past Drug Use History: None Reported - Past Family History Mother Family Medical History: Cancer, Diabetes Mellitus Additional Family Medical History / Comment(s): Mother at age 84 from [place] Father Additional Family Medical History / Comment(s): Father is with history of coronary artery disease. Patient has 4 children that are healthy with no major medical problems. Brother(s) Additional Family Medical History / Comment(s): Patient has 4 brothers. Two at the age of 44 from coronary artery disease with history of tobacco use and alcohol dependence. One from aneurysm in the chest. General Exam - General Exam Comments Initial Comments: Physical Exam GENERAL: Appears dehydrated Patient is well-developed and well-nourished. Patient is nontoxic in no distress. HENT: Normocephalic, Atraumatic. EYES: PERRL, EOMI PULMONARY: Unlabored respirations. No audible rales rhonchi or wheezing was noted. CARDIOVASCULAR: There is a regular rate and rhythm without any murmurs gallops or rubs. Midline sternal scar consistent with history of CABG ABDOMEN: Soft and nontender with normal bowel sounds. Ileostomy in the right lower quadrant SKIN: There is mild skin tenting : Deferred NEUROLOGIC: Patient is alert and oriented x3. Moving all extremities spontaneously MUSCULOSKELETAL: Normal extremities with adequate strength and full range of motion. No lower extremity swelling or edema. No calf tenderness. PSYCHIATRIC: Normal psychiatric evaluation. Limitations: no limitations Course Vital Signs 11/25/21 11/25/21 11/25/21 11:09 15:08 16:49 Temperature 97.8 F Pulse Rate 91 77 78 Respiratory 20 18 18 Rate Blood Pressure 94/66 102/56 108/67 O2 Sat by Pulse 97 97 97 Oximetry 11/25/21 18:29 Temperature 97.8 F Pulse Rate 80 Respiratory 18 Rate Blood Pressure 104/72 O2 Sat by Pulse 96 Oximetry Medical Decision Making - Lab Data Result diagrams: 11/25/21 15:37 11/25/21 17:17 Lab Results 11/25/21 11/25/21 Range/Units 15:37 17:17 WBC 11.1 H (3.8-10.6) k/uL RBC 4.82 (4.30-5.90) m/uL Hgb 14.3 (13.0-17.5) gm/dL Hct 44.2 (39.0-53.0) % MCV 91.8 (80.0-100.0) fL MCH 29.7 (25.0-35.0) pg MCHC 32.4 (31.0-37.0) g/dL RDW 14.5 (11.5-15.5) % Plt Count 219 (150-450) k/uL MPV 10.9 Neutrophils % 73 % Lymphocytes % 12 % Monocytes % 10 % Eosinophils % 2 % Basophils % 1 % Neutrophils # 8.1 H (1.3-7.7) k/uL Lymphocytes # 1.3 (1.0-4.8) k/uL Monocytes # 1.1 H (0-1.0) k/uL Eosinophils # 0.2 (0-0.7) k/uL Basophils # 0.1 (0-0.2) k/uL Sodium 133 L (137-145) mmol/L Potassium 4.7 (3.5-5.1) mmol/L Chloride 110 H (98-107) mmol/L Carbon Dioxide 15 L (22-30) mmol/L Anion Gap 8 mmol/L BUN 42 H (9-20) mg/dL Creatinine 1.28 H (0.66-1.25) mg/dL Est GFR (CKD-EPI)AfAm 64 (>60 ml/min/1.73 sqM) Est GFR (CKD-EPI)NonAf 55 (>60 ml/min/1.73 sqM) Glucose 119 H (74-99) mg/dL Calcium 8.6 (8.4-10.2) mg/dL Magnesium 2.2 (1.6-2.3) mg/dL Total Bilirubin 0.3 (0.2-1.3) mg/dL AST 29 (17-59) U/L ALT 22 (4-49) U/L Alkaline Phosphatase 100 (38-126) U/L Total Protein 7.1 (6.3-8.2) g/dL Albumin 4.0 (3.5-5.0) g/dL Disposition Clinical Impression: Dehydration Disposition: HOME SELF-CARE Condition: Stable Additional Instructions: You were slightly dehydrated, try to continue to drink plenty, follow up with your regular doctor about increased iliostomy output Return to the ER for any worsening Is patient prescribed a controlled substance at d/c from ED?: No Referrals: Miguel Bautista MD [Primary Care Provider] - 1-2 days
[2021-11-25 17:36] LABS: Calcium 8.6 mg/dL (8.4-10.2); Magnesium 2.2 mg/dL (1.6-2.3); Potassium 4.7 mmol/L (3.5-5.1); Total Bilirubin 0.3 mg/dL (0.2-1.3); Total Protein 7.1 g/dL (6.3-8.2)
[2021-11-25 19:17] VITALS: BP 106/67; PULSE 78; TEMP 97.9
== END 2021-11-25 19:18 | disposition home or self-care (01) ==
LOC: EC 10:46
DX: E86.0 Dehydration (principal); I10 Essential (primary) hypertension; E78.5 Hyperlipidemia, unspecified; I25.10 Atherosclerotic heart disease of native coronary artery without angina pectoris; E11.9 Type 2 diabetes mellitus without complications; I48.91 Unspecified atrial fibrillation; Z86.73 Personal history of transient ischemic attack (TIA), and cerebral infarction without residual deficits; Z87.891 Personal history of nicotine dependence; Z95.1 Presence of aortocoronary bypass graft; Z79.899 Other long term (current) drug therapy; Z88.5 Allergy status to narcotic agent; Z79.82 Long term (current) use of aspirin
CPT/HCPCS: 36415; 80053; 83735; 85025; 96360; 96361; 99284

== ENCOUNTER 2021-12-14 21:38 | Emergency (ER) | payer MEDICARE ==
[2021-12-14 23:09] VITALS: TEMP 98.2
[2021-12-14 23:50] LABS: Basophils # (A) 0.1 k/uL (0-0.2); Basophils % (A) 1 %; Eosinophils # (A) 0.2 k/uL (0-0.7); Eosinophils % (A) 2 %; HCT 40.3 % (39.0-53.0); HGB 13.6 gm/dL (13.0-17.5); Lymphocytes # (A) 1.7 k/uL (1.0-4.8); Lymphocytes % (A) 16 %; MCH 30.5 pg (25.0-35.0); MCHC 33.7 g/dL (31.0-37.0); MCV 90.4 fL (80.0-100.0); Mean Platelet Volume 9.7; Monocytes # (A) 0.8 k/uL (0-1.0); Monocytes % (A) 7 %; Neutrophils # (A) 7.5 k/uL (1.3-7.7); Neutrophils % (A) 72 %; Platelet Count 256 k/uL (150-450); RBC 4.45 m/uL (4.30-5.90); RDW 14.8 % (11.5-15.5); WBC 10.5 k/uL (3.8-10.6)
[2021-12-14 23:58] LABS: Albumin 4.7 g/dL (3.5-5.0); Calcium 9.5 mg/dL (8.4-10.2); Potassium 4.6 mmol/L (3.5-5.1); Total Bilirubin 0.4 mg/dL (0.2-1.3); Total Protein 8.3 g/dL (6.3-8.2)
--- NOTE | 2021-12-14 23:58 | ED ---
Weakness HPI - General Chief complaint: Weakness Stated complaint: Dehydration, Right Ear Pain Time Seen by Provider: 12/14/21 23:58 Source: patient, RN notes reviewed, old records reviewed Mode of arrival: ambulatory Limitations: no limitations - History of Present Illness Initial comments: This is a 71-year-old male to the ER today patient presents today for evaluation of weakness feels dehydrated. Patient states that increased output through his ostomy history of colitis. Patient has mild nausea but no vomiting feels significantly dehydrated and weak. Otherwise no fevers no other complaints no abdominal pain MD Complaint: generalized weakness, lack of energy -: days(s) Location: generalized Severity: moderate Severity scale (1-10): 4 Consistency: constant Improves with: none Worsens with: none Context: recent illness, history of similar Associated Symptoms: loss of appetite, nausea/vomiting - Related Data Home Medications Medication Instructions Recorded Confirmed Atorvastatin [Lipitor] 40 mg PO HS 02/06/17 02/15/21 DULoxetine HCL [Cymbalta] 60 mg PO DAILY 02/06/17 02/15/21 Finasteride [Proscar] 5 mg PO DAILY 02/06/17 02/15/21 Multivit-Min/FA/Lycopen/Lutein 1 cap PO DAILY 02/06/17 02/15/21 [Centrum Silver Men Tablet] Tamsulosin [Flomax] 0.4 mg PO HS 02/06/17 02/15/21 Trospium Chloride [Sanctura] 20 mg PO BID 02/06/17 02/15/21 Cholecalciferol [Vitamin D3 (25 1,000 unit PO DAILY 11/19/17 02/15/21 Mcg = 1000 Iu)] Ferrous Sulfate [Iron (65 MG 325 mg PO HS 12/18/17 02/15/21 Elemental)] Omeprazole 40 mg PO DAILY 12/05/18 02/15/21 Ascorbic Acid [Vitamin C] 1,000 mg PO DAILY 08/29/20 02/15/21 Cranberry Fruit Extract [Cranberry] 450 mg PO DAILY #0 08/29/20 02/15/21 Loratadine [Claritin] 10 mg PO DAILY 08/29/20 02/15/21 Turmeric Root Extract [Turmeric] 1,000 mg PO BID 08/29/20 02/15/21 Dulaglutide [Trulicity] 1.5 mg SQ TH 02/01/21 02/15/21 Aspirin 81 mg PO DAILY 02/08/21 02/15/21 DULoxetine HCL [Cymbalta] 30 mg PO DAILY 02/15/21 02/15/21 Previous Rx's Medication Instructions Recorded Acetaminophen Tab [Tylenol] 650 mg PO Q4HR PRN tab 02/14/21 Clopidogrel [Plavix] 75 mg PO DAILY #30 tab 02/14/21 Cyclobenzaprine [Flexeril] 5 mg PO TID PRN #90 tab 02/14/21 INSULIN LISPRO (HumaLOG) [humaLOG] 4 units SQ TID-W/MEALS #0 02/14/21 Insulin Glargine,Hum.rec.anlog 40 unit SQ HS #0 02/14/21 [Basaglar Kwikpen U-100] Lidocaine 4% Cream [Lmx 4] 1 applic TOPICAL TID 02/14/21 Melatonin 5 mg PO HS PRN tablet 02/14/21 Metoprolol Tartrate [Lopressor] 75 mg PO BID #120 tab 02/14/21 Furosemide [Lasix] 20 mg PO DAILY #30 tab 02/17/21 Potassium Chloride ER [K-Dur 10] 10 meq PO DAILY #30 tab 02/17/21 Allergies Allergy/AdvReac Type Severity Reaction Status Date / Time codeine Allergy Rash/Hives Verified 12/14/21 23:09 morphine Allergy Rash/Hives Verified 12/14/21 23:09 Review of Systems ROS Statement: Those systems with pertinent positive or pertinent negative responses have been documented in the HPI. ROS Other: All systems not noted in ROS Statement are negative. Past Medical History Past Medical History: Atrial Fibrillation, Coronary Artery Disease (CAD), CVA/TIA, Diabetes Mellitus, Eye Disorder, Hearing Disorder / Deafness, Hyperlipidemia, Hypertension, Sleep Apnea/CPAP/BIPAP Additional Past Medical History / Comment(s): 05/2015 CVA and 08/2017, continues to have occasional balance issues. ., Ulcerative Colitis, hx kidney stone. BPH. illeostomy placed March 19, 2018 uses cpap at home for sleep apnea History of Any Multi-Drug Resistant Organisms: None Reported Past Surgical History: Appendectomy, Bowel Resection, Coronary Bypass/CABG, Heart Catheterization, Hernia Repair, Joint Replacement Additional Past Surgical History / Comment(s): APPENDEX RUPTURE, HAD J pouch. Left partial knee replacement. COLONOSCOPY, bilateral cataract extraction with lens implants, mesh with hernia repair, exama, colectomy with ileostomy, off- pump four-vessel CABG 02/09/2021 Past Anesthesia/Blood Transfusion Reactions: No Reported Reaction Additional Past Anesthesia/Blood Transfusion Reaction / Comment(s): PATIENT HAD SURGERY FOR LEFT EYE DETACHED RETINA AND DEVELOPED GAS BUBBLE IN L EYE. HE WAS INSTRUCTED TO NOT RECEIVE NITROUS OXIDE OR RIDE IN A PLANE UNTIL GAS BUBBLE IS GONE. Past Psychological History: Depression Smoking Status: Former smoker Past Alcohol Use History: Occasional, Rare Past Drug Use History: None Reported - Past Family History Mother Family Medical History: Cancer, Diabetes Mellitus Additional Family Medical History / Comment(s): Mother at age 84 from [place] Father Additional Family Medical History / Comment(s): Father is with history of coronary artery disease. Patient has 4 children that are healthy with no major medical problems. Brother(s) Additional Family Medical History / Comment(s): Patient has 4 brothers. Two at the age of 44 from coronary artery disease with history of tobacco use and alcohol dependence. One from aneurysm in the chest. General Exam General appearance: alert, in no apparent distress Head exam: Present: atraumatic, normocephalic, normal inspection Eye exam: Present: normal appearance, PERRL, EOMI. Absent: scleral icterus, conjunctival injection, periorbital swelling ENT exam: Present: normal exam, mucous membranes moist Neck exam: Present: normal inspection. Absent: tenderness, meningismus, lymphadenopathy Respiratory exam: Present: normal lung sounds bilaterally. Absent: respiratory distress, wheezes, rales, rhonchi, stridor Cardiovascular Exam: Present: regular rate, normal rhythm, normal heart sounds. Absent: systolic murmur, diastolic murmur, rubs, gallop, clicks GI/Abdominal exam: Present: soft, normal bowel sounds. Absent: distended, tenderness, guarding, rebound, rigid Extremities exam: Present: normal inspection, full ROM, normal capillary refill. Absent: tenderness, pedal edema, joint swelling, calf tenderness Back exam: Present: normal inspection Neurological exam: Present: alert, oriented X3, CN II-XII intact Psychiatric exam: Present: normal affect, normal mood Skin exam: Present: warm, dry, intact, normal color. Absent: rash Course Vital Signs 12/14/21 12/15/21 23:05 00:16 Temperature 98.2 F Pulse Rate 90 85 Respiratory 19 16 Rate Blood Pressure 108/68 100/75 O2 Sat by Pulse 98 100 Oximetry - Reevaluation(s) Reevaluation #1: 12/15/21 03:04 Medical record is reviewed Reevaluation #2: 12/15/21 03:04 Patient symptoms are improved Reevaluation #3: 12/15/21 03:04 Patient informed results and questions have been answered EKG Findings - EKG Comments: EKG Findings:: EKG sinus rhythm 86 ME 209 QRS 97 QTC 383 Medical Decision Making - Medical Decision Making 71 male to the emergency department for evaluation patient does have improved symptoms after hydration here in the ER and can be discharged home - Lab Data Result diagrams: 12/14/21 23:36 12/14/21 23:36 Lab Results 12/14/21 12/14/21 12/14/21 Range/Units 23:36 23:36 23:36 WBC 10.5 (3.8-10.6) k/uL RBC 4.45 (4.30-5.90) m/uL Hgb 13.6 (13.0-17.5) gm/dL Hct 40.3 (39.0-53.0) % MCV 90.4 (80.0-100.0) fL MCH 30.5 (25.0-35.0) pg MCHC 33.7 (31.0-37.0) g/dL RDW 14.8 (11.5-15.5) % Plt Count 256 (150-450) k/uL MPV 9.7 Neutrophils % 72 % Lymphocytes % 16 % Monocytes % 7 % Eosinophils % 2 % Basophils % 1 % Neutrophils # 7.5 (1.3-7.7) k/uL Lymphocytes # 1.7 (1.0-4.8) k/uL Monocytes # 0.8 (0-1.0) k/uL Eosinophils # 0.2 (0-0.7) k/uL Basophils # 0.1 (0-0.2) k/uL PT 10.4 (9.0-12.0) sec INR 1.0 (<1.2) APTT 28.1 (22.0-30.0) sec Sodium 134 L (137-145) mmol/L Potassium 4.6 (3.5-5.1) mmol/L Chloride 106 (98-107) mmol/L Carbon Dioxide 13 L (22-30) mmol/L Anion Gap 15 mmol/L BUN 41 H (9-20) mg/dL Creatinine 1.70 H (0.66-1.25) mg/dL Est GFR (CKD-EPI)AfAm 46 (>60 ml/min/1.73 sqM) Est GFR (CKD-EPI)NonAf 39 (>60 ml/min/1.73 sqM) Glucose 168 H (74-99) mg/dL Calcium 9.5 (8.4-10.2) mg/dL Total Bilirubin 0.4 (0.2-1.3) mg/dL AST 41 (17-59) U/L ALT 31 (4-49) U/L Alkaline Phosphatase 140 H (38-126) U/L Troponin I (0.000-0.034) ng/mL Total Protein 8.3 H (6.3-8.2) g/dL Albumin 4.7 (3.5-5.0) g/dL Urine Color Urine Appearance (Clear) Urine pH (5.0-8.0) Ur Specific [place] (1.001-1.035) Urine Protein (Negative) Urine Glucose (UA) (Negative) Urine Ketones (Negative) Urine Blood (Negative) Urine Nitrite (Negative) Urine Bilirubin (Negative) Urine Urobilinogen (<2.0) mg/dL Ur Leukocyte Esterase (Negative) 12/14/21 12/15/21 Range/Units 23:36 00:53 WBC (3.8-10.6) k/uL RBC (4.30-5.90) m/uL Hgb (13.0-17.5) gm/dL Hct (39.0-53.0) % MCV (80.0-100.0) fL MCH (25.0-35.0) pg MCHC (31.0-37.0) g/dL RDW (11.5-15.5) % Plt Count (150-450) k/uL MPV Neutrophils % % Lymphocytes % % Monocytes % % Eosinophils % % Basophils % % Neutrophils # (1.3-7.7) k/uL Lymphocytes # (1.0-4.8) k/uL Monocytes # (0-1.0) k/uL Eosinophils # (0-0.7) k/uL Basophils # (0-0.2) k/uL PT (9.0-12.0) sec INR (<1.2) APTT (22.0-30.0) sec Sodium (137-145) mmol/L Potassium (3.5-5.1) mmol/L Chloride (98-107) mmol/L Carbon Dioxide (22-30) mmol/L Anion Gap mmol/L BUN (9-20) mg/dL Creatinine (0.66-1.25) mg/dL Est GFR (CKD-EPI)AfAm (>60 ml/min/1.73 sqM) Est GFR (CKD-EPI)NonAf (>60 ml/min/1.73 sqM) Glucose (74-99) mg/dL Calcium (8.4-10.2) mg/dL Total Bilirubin (0.2-1.3) mg/dL AST (17-59) U/L ALT (4-49) U/L Alkaline Phosphatase (38-126) U/L Troponin I <0.012 (0.000-0.034) ng/mL Total Protein (6.3-8.2) g/dL Albumin (3.5-5.0) g/dL Urine Color Yellow Urine Appearance Clear (Clear) Urine pH 5.5 (5.0-8.0) Ur Specific [place] 1.013 (1.001-1.035) Urine Protein Trace H (Negative) Urine Glucose (UA) Negative (Negative) Urine Ketones Negative (Negative) Urine Blood Negative (Negative) Urine Nitrite Negative (Negative) Urine Bilirubin Negative (Negative) Urine Urobilinogen <2.0 (<2.0) mg/dL Ur Leukocyte Esterase Negative (Negative) Disposition Clinical Impression: Generalized weakness, Dehydration, Ulcerative colitis Disposition: HOME SELF-CARE Condition: Good Instructions (If sedation given, give patient instructions): Dehydration (ED) Is patient prescribed a controlled substance at d/c from ED?: No Referrals: Miguel Bautista MD [Primary Care Provider] - 1-2 days Time of Disposition: 03:00
[2021-12-15 00:05] LABS: Partial Thromboplastin Time 28.1 sec (22.0-30.0); Prothrombin Time 10.4 sec (9.0-12.0)
--- NOTE | 2021-12-15 00:08 | XR ---
EXAMINATION TYPE: XR chest 2V DATE OF EXAM: 12/15/2021 COMPARISON: 04/24/2021 HISTORY: Weakness TECHNIQUE: 2 views FINDINGS: Heart is normal. Lungs are clear of infiltrate. No heart failure. There are sternal wires. Diaphragm is normal. Bony thorax is intact IMPRESSION: No cardiopulmonary disease. No change.
[2021-12-15 00:17] VITALS: RESP 16
[2021-12-15 01:37] LABS: Appearance,Urine Clear (Clear); Bilirubin,Urine Negative (Negative); Blood,Urine Negative (Negative); Color,Urine Yellow; Glucose,Urine (UA) Negative (Negative); Ketones,Urine Negative (Negative); Leukocyte Esterase,Urine Negative (Negative); Nitrite,Urine Negative (Negative); PH, Urine 5.5 (5.0-8.0); Protein,Urine Trace (Negative); Specific Gravity,Urine 1.013 (1.001-1.035); Urobilinogen,Urine <2.0 mg/dL (<2.0)
[2021-12-15] MEDS ORDERED: SODIUM CHLORIDE 0.9% 1,000 ML IV STA (01:39)
[2021-12-15] MEDS ORDERED: SODIUM CHLORIDE 0.9% 500 ML 500 ML IV STA (01:39)
[2021-12-15 03:35] VITALS: BP 104/71; PULSE 82
== END 2021-12-15 03:35 | disposition home or self-care (01) ==
LOC: EC 21:38
DX: R53.1 Weakness (principal); E86.0 Dehydration; K51.90 Ulcerative colitis, unspecified, without complications; I25.10 Atherosclerotic heart disease of native coronary artery without angina pectoris; E11.9 Type 2 diabetes mellitus without complications; I10 Essential (primary) hypertension; E78.5 Hyperlipidemia, unspecified; F32.A Depression, unspecified; Z86.73 Personal history of transient ischemic attack (TIA), and cerebral infarction without residual deficits; Z87.891 Personal history of nicotine dependence; Z88.5 Allergy status to narcotic agent; Z88.6 Allergy status to analgesic agent; Z79.899 Other long term (current) drug therapy
CPT/HCPCS: 36415; 71046; 80053; 81003; 84484; 85025; 85610; 85730; 93005; 99285

== ENCOUNTER → 2021-12-28 | Outpatient (CLI) | payer MEDICARE ==
[2021-12-28 14:40] LABS: ALT 27 U/L (10-49); AST 31 U/L (14-35); African American GFR (CKD) 58.9 (60.0-200.0); Albumin 4.4 g/dL (3.8-4.9); Albumin/Globulin Ratio 1.43 (1.60-3.17); Alkaline Phosphatase 126 U/L (41-126); Blood Urea Nitrogen 24.8 mg/dL (9.0-27.0); Calcium 10.2 mg/dL (8.7-10.3); Carbon Dioxide 21.7 mmol/L (20.0-27.5); Chloride 102 mmol/L (96-109); Chol/HDL Ratio 2.58 Ratio; Globulin 3.1 g/dL (1.6-3.3); Glucose 134 mg/dL (70-110); Non-African American GFR(CKD) 50.8 (60.0-200.0); Potassium 4.8 mmol/L (3.5-5.5); Sodium 137 mmol/L (135-145); Total Protein 7.5 g/dL (6.2-8.2)
[2021-12-28 15:00] LABS: Basophils # (A) 0.04 X 10*3/uL (0.00-0.10); Basophils % (A) 0.4 %; Eosinophils # (A) 0.12 X 10*3/uL (0.04-0.35); Eosinophils % (A) 1.1 %; HCT 42.1 % (39.6-50.0); HGB 12.9 g/dL (13.0-17.0); Immature Grans, Automated 0.9 %; Lymphocytes # (A) 1.17 X 10*3/uL (0.90-5.00); Lymphocytes % (A) 10.7 %; MCH 28.2 pg (27.0-32.0); MCHC 30.6 g/dL (32.0-37.0); MCV 91.9 fL (80.0-97.0); Mean Platelet Volume 13.3 fL (9.5-12.2); Monocytes # (A) 1.09 X 10*3/uL (0.20-1.00); Monocytes % (A) 9.9 %; NRBC Per 100 WBC 0 /100 WBCS (0.0-0.0); Neutrophils # (A) 8.46 X 10*3/uL (1.80-7.70); Platelet Count 205 X 10*3/uL (140-440); RBC 4.58 X 10*6/uL (4.40-5.60); RDW 14.9 % (11.5-14.5); WBC 10.98 X 10*3/uL (4.50-10.00)
== END | disposition home or self-care (01) ==
LOC: LABWHC1 09:39
PROVIDERS: ATTEND Internal Medicine Geriatric Medicine
DX: I48.0 Paroxysmal atrial fibrillation (principal); I25.810 Atherosclerosis of coronary artery bypass graft(s) without angina pectoris; E11.22 Type 2 diabetes mellitus with diabetic chronic kidney disease; N18.9 Chronic kidney disease, unspecified; R94.4 Abnormal results of kidney function studies
CPT/HCPCS: 36415; 80053; 80061; 82043; 82570; 83036; 84439; 84443; 85025

== ENCOUNTER 2022-01-12 10:14 | Inpatient (IN) | payer MEDICARE ==
[2022-01-12] MEDS ORDERED: ASPIRIN 81 MG PO STA (11:26)
[2022-01-12] MEDS ORDERED: LIDOCAINE 5% PATCH TOPICAL STA (11:26)
--- NOTE | 2022-01-12 11:29 | CT ---
EXAMINATION TYPE: CT brain óscarine wo con DATE OF EXAM: 01/12/2022 COMPARISON: NONE HISTORY: Fall at 0400 today with headache and neck pain CT DLP: 1427.3 mGycm. Automated Exposure Control for Dose Reduction was Utilized. TECHNIQUE: CT scan of the head and cervical spine are performed without contrast. FINDINGS: There is no acute intracranial hemorrhage or midline shift identified. Mild to moderate v entricular and sulcal prominence. Moderate low-attenuation in the deep and periventricular white jayesh er consistent with product of chronic small vessel ischemic change in patient of this age. The calvar ium is intact. The globes are intact and the visualized sinuses are clear. Vascular calcification di stal internal carotid arteries is incidentally noted Cervical spine is visualized in its entirety from C1 through upper thoracic levels and demonstrates s atisfactory alignment without evidence of acute fracture or dislocation. Prevertebral soft tissue ap pears within normal limits. The C1-C2 articulation is within normal limits on the coronal images. Ve rtebral body heights and disc space heights are maintained. Moderate severe disc space narrowing with mild to moderate spurring C5-C6 level. Moderate disc space narrowing and spurring C6-C7 level. Poste rior spur disc complexes efface the anterior thecal sac at these levels on sagittal and axial images. Review of axial images shows multilevel uncovertebral facet degenerative changes contributing to mul tilevel bilateral neural foraminal narrowing. Thyroid gland appears within normal limits. Lung apices show no pneumothorax. IMPRESSION: 1. There is no acute fracture or dislocation evident in the cervical spine. 2. No acute intracranial hemorrhage or midline shift is seen.
[2022-01-12] MEDS ORDERED: KETOROLAC 15 MG/ML 1 ML VIAL IM STA (11:33)
[2022-01-12] MEDS ORDERED: SODIUM CHLORIDE 0.9% 500 ML 500 ML IV STA ×2 (11:47→13:45)
--- NOTE | 2022-01-12 12:25 | XR ---
EXAMINATION TYPE: XR ribs LT w pa chest xray DATE OF EXAM: 01/12/2022 CLINICAL HISTORY: Chest and left rib pain. TECHNIQUE: Single frontal view of the chest is obtained. A frontal and oblique images of the left-ann-marie ed ribs. COMPARISON: Chest x-ray December 14, 2021 FINDINGS: There is no suspicious focal air space opacity, pleural effusion, or pneumothorax seen. T he cardiac silhouette size remains within normal limits. Overlying sternal wires along with mediastin al clips and left atrial appendage clip are all redemonstrated. The osseous structures are intact. Dedicated images of the left-sided ribs show some demineralization which is noted to lower radiograph ic sensitivity. No acute displaced fractures are clearly evident. Overlying soft tissue is unremarkab le. Some mild to moderate postfracture change of visualized abdominal aorta with surgical sutures lef t mid abdomen and possible nonobstructing small renal calculi incidentally noted. IMPRESSION: 1. No acute cardiopulmonary process. 2. No acute displaced left-sided rib fractures.
[2022-01-12] MEDS ORDERED: KETOROLAC 15 MG/ML 1 ML VIAL IVP STA (12:43)
[2022-01-12 12:53] LABS: Basophils # (A) 0.1 k/uL (0-0.2); Basophils % (A) 0 %; Eosinophils # (A) 0.1 k/uL (0-0.7); Eosinophils % (A) 1 %; HCT 40.9 % (39.0-53.0); HGB 13.1 gm/dL (13.0-17.5); Lymphocytes # (A) 0.9 k/uL (1.0-4.8); Lymphocytes % (A) 6 %; MCH 29.3 pg (25.0-35.0); MCHC 32.2 g/dL (31.0-37.0); MCV 91.2 fL (80.0-100.0); Monocytes % (A) 7 %; Neutrophils % (A) 84 %; Platelet Count 257 k/uL (150-450); RBC 4.48 m/uL (4.30-5.90); RDW 14.6 % (11.5-15.5); WBC 15.5 k/uL (3.8-10.6)
[2022-01-12 13:15] LABS: Partial Thromboplastin Time 29.5 sec (22.0-30.0); Prothrombin Time 10.6 sec (9.0-12.0)
[2022-01-12 13:44] LABS: Albumin 4.7 g/dL (3.5-5.0); Calcium 9.9 mg/dL (8.4-10.2); Magnesium 2.4 mg/dL (1.6-2.3); Potassium 5.6 mmol/L (3.5-5.1); Total Bilirubin 0.6 mg/dL (0.2-1.3); Total Protein 8.5 g/dL (6.3-8.2)
[2022-01-12] MEDS ORDERED: SODIUM CHLORIDE 0.9% 1,000 ML IV STA ×2 (13:45→14:26)
[2022-01-12] MEDS ORDERED: NALOXONE 0.4 MG/ML 1 ML VIAL IV PRN (14:13)
[2022-01-12] MEDS ORDERED: ONDANSETRON 4 MG/2 ML VIAL IVP PRN (14:13)
[2022-01-12] MEDS ORDERED: KETOROLAC 15 MG/ML 1 ML VIAL IVP PRN (14:15)
--- NOTE | 2022-01-12 14:16 | ED ---
General Adult HPI - General Chief complaint: Chest Pain Stated complaint: CHEST PAIN Time Seen by Provider: 01/12/22 10:45 Source: patient, RN notes reviewed, old records reviewed Mode of arrival: ambulatory Limitations: no limitations - History of Present Illness Initial comments: Patient is a 71-year-old male with past medical history remarkable for atrial fibrillation on anticoagulation, diabetes, hypertension, colostomy who presents emergency Department complaining of left-sided rib pain/chest pain. Was also complaining of a syncopal versus fall episode last night. Is uncertain what happened last night but per patient's , patient stood up and then fell to the ground. Landed on carpet. Uncertain if he hit his head. Went back to sleep. Does have a history of sleepwalking and is uncertain if this is what caused it. States he does believe he may be dehydrated at this time. Otherwise has been acting normally since the event. Please see did hit his ribs last night as well, as he is having point tenderness over the left inferior ribs in the anterior axillary line. Pain does not radiate. Denies shortness of breath. States the pain is worse with any movement of the thorax or his left arm. Denies any back pain. Denies any abdominal pain, nausea, vomiting. Denies any cough. His no other acute complaint at this time. Presents for further evaluation.Patient states he has had less by mouth intake of water recently, but denies any worsening or increased output from his ostomy site. States his brother dehydration since the ostomy. Denies any melena, bloody stools. Denies constipation. - Related Data Home Medications Medication Instructions Recorded Confirmed Finasteride [Proscar] 5 mg PO DAILY 02/06/17 01/12/22 Multivit-Min/FA/Lycopen/Lutein 1 cap PO DAILY 02/06/17 01/12/22 [Centrum Silver Men Tablet] Tamsulosin [Flomax] 0.4 mg PO HS 02/06/17 01/12/22 Trospium Chloride [Sanctura] 20 mg PO BID 02/06/17 01/12/22 Cholecalciferol [Vitamin D3 (25 25 mcg PO DAILY 11/19/17 01/12/22 Mcg = 1000 Iu)] Omeprazole 40 mg PO DAILY 12/05/18 01/12/22 Cranberry Fruit Extract [Cranberry] 200 mg PO DAILY #0 08/29/20 01/12/22 Loratadine [Claritin] 10 mg PO DAILY 08/29/20 01/12/22 Turmeric Root Extract [Turmeric] 1,000 mg PO BID 08/29/20 01/12/22 Apixaban [Eliquis] 5 mg PO BID 01/12/22 01/12/22 Ascorbic Acid [Vitamin C] 500 mg PO DAILY 01/12/22 01/12/22 Atorvastatin [Lipitor] 80 mg PO DAILY 01/12/22 01/12/22 Cranberry 450mg 1 tab PO DAILY 01/12/22 01/12/22 Insulin Glargine,Hum.rec.anlog 35 unit SQ HS 01/12/22 01/12/22 [Basaglar Kwikpen U-100] Insulin Lispro [humaLOG Kwikpen] 8 unit SQ AC-TID 01/12/22 01/12/22 Latanoprost/Pf [Latanoprost 0.005% 1 drop BOTH EYES HS 01/12/22 01/12/22 Eye Drop] Metoprolol Tartrate [Lopressor] 25 mg PO DAILY@1200 01/12/22 01/12/22 Metoprolol Tartrate [Lopressor] 75 mg PO BID@0900,2100 01/12/22 01/12/22 Previous Rx's Medication Instructions Recorded Melatonin 5 mg PO HS PRN tablet 02/14/21 Allergies Allergy/AdvReac Type Severity Reaction Status Date / Time codeine Allergy Rash/Hives Verified 01/12/22 13:43 morphine Allergy Rash/Hives Verified 01/12/22 13:43 Review of Systems ROS Statement: Those systems with pertinent positive or pertinent negative responses have been documented in the HPI. Review of Systems: CONST: Denies fever EYES: Denies blurry vision ENT: Denies nasal congestion C/V: Endorses left sided chest wall pain. RESP: Denies shortness of breath GI: Denies abdominal pain : Denies dysuria SKIN: Denies rash. MSK: Denies joint pain. NEURO: Denies headache ROS Other: All systems not noted in ROS Statement are negative. Past Medical History Past Medical History: Atrial Fibrillation, Coronary Artery Disease (CAD), CVA/TIA, Diabetes Mellitus, Eye Disorder, Hearing Disorder / Deafness, Hyperlipidemia, Hypertension, Sleep Apnea/CPAP/BIPAP Additional Past Medical History / Comment(s): 05/2015 CVA and 08/2017, continues to have occasional balance issues. ., Ulcerative Colitis, hx kidney stone. BPH. illeostomy placed March 19, 2018 uses cpap at home for sleep apnea History of Any Multi-Drug Resistant Organisms: None Reported Past Surgical History: Appendectomy, Bowel Resection, Coronary Bypass/CABG, Heart Catheterization, Hernia Repair, Joint Replacement Additional Past Surgical History / Comment(s): APPENDEX RUPTURE, HAD J pouch. Left partial knee replacement. COLONOSCOPY, bilateral cataract extraction with lens implants, mesh with hernia repair, exama, colectomy with ileostomy, off- pump four-vessel CABG 02/09/2021 Past Anesthesia/Blood Transfusion Reactions: No Reported Reaction Additional Past Anesthesia/Blood Transfusion Reaction / Comment(s): PATIENT HAD SURGERY FOR LEFT EYE DETACHED RETINA AND DEVELOPED GAS BUBBLE IN L EYE. HE WAS INSTRUCTED TO NOT RECEIVE NITROUS OXIDE OR RIDE IN A PLANE UNTIL GAS BUBBLE IS GONE. Past Psychological History: Depression Smoking Status: Former smoker Past Alcohol Use History: Rare Past Drug Use History: None Reported - Past Family History Mother Family Medical History: Cancer, Diabetes Mellitus Additional Family Medical History / Comment(s): Mother at age 84 from [place] Father Additional Family Medical History / Comment(s): Father is with history of coronary artery disease. Patient has 4 children that are healthy with no ma jerardo medical problems. Brother(s) Additional Family Medical History / Comment(s): Patient has 4 brothers. Two at the age of 44 from coronary artery disease with history of tobacco use and alcohol dependence. One from aneurysm in the chest. General Exam - General Exam Comments Initial Comments: General: Appears in no acute distress. HEAD: Normal with no signs of head trauma. EYES: PERRLA, EOMI, conjunctiva normal, no discharge. Pupils are 3 mm and equal bilaterally. ENT: Hearing grossly intact, normal oropharynx. RESPIRATORY: Clear breath sounds bilaterally. No wheezes, rales, or rhonchi. C/V: Regular rate and rhythm. S1 and S2 auscultated, no edema, peripheral p ulses 2+ and intact throughout ABD: Abd is soft, nontender, nondistended. Ostomy is intact, no skin changes or tenderness. Adequately draining. EXT: Normal range of motion, no obvious deformity SKIN: No rashes or lesions observed on exposed skin. NEURO: Alert and oriented 4. NIH of 0. GCS of 15. No focal deficits. Is able to ambulate without difficulty. Limitations: no limitations Course Vital Signs 01/12/22 01/12/22 01/12/22 10:29 12:48 13:44 Temperature 97.9 F Pulse Rate 98 75 76 Respiratory 16 18 18 Rate Blood Pressure 101/69 115/77 O2 Sat by Pulse 96 95 Oximetry Medical Decision Making - Medical Decision Making Based on the patient's presentation and physical exam, I'm concerned for acute cardiopulmonary etiology for his symptoms. Appears to be having chest wall pain, as his pain is point tender over the fifth or sixth rib in the anterior axillary line. Does not radiate. It is reproducible on palpation. I did speak with the patient's hand tile maker and neighbor, Dr. Gaitan, requested cardiac workup which I was in agreement with. We will also obtain CT brain and C-spine due to the fall. We'll obtain troponins. Will likely be admitted. Patient was initially evaluated in the waiting room. Vital signs within normal limits. EKG shows no signs of acute ischemia. CT brain and C-spine shows no acute traumatic injury. No acute intracranial process. Chest x-ray with ribs of the left side shows no acute cardio, and process. No left-sided rib fractures. Laboratory studies are remarkable for mild leukocytosis of 15.5 which could be reactive. Patient is hyperkalemic to 5.6 with no ekg changes and likely related to dehydration. Patient has a mild AK I. Troponin is undetectable. Remainder of the labs are unremarkable. Orthostatics are positive. On reevaluation, vital signs remain within normal limits. Patient's chest pain is very much improved. I discussed with him I'm concerned for likely rib or muscle skeletal pain for his chest wall pain which is reproducible on palpation and worse with movement. Cardiac workup at this time is unremarkable. We'll continue to fluid hydrate him, admitted to the hospital on senior safety support manager for further monitoring. Patient was given an aspirin. Patient was in agreement with this plan. I spoke with the admitting physician, Dr. Berrios who is covering Dr. Bautista's group. He was in agreement this plan. Cardiology will be consulted. - Lab Data Result diagrams: 01/12/22 12:19 01/12/22 12:19 Lab Results 01/12/22 01/12/22 01/12/22 Range/Units 12:19 12:19 12:19 WBC 15.5 H (3.8-10.6) k/uL RBC 4.48 (4.30-5.90) m/uL Hgb 13.1 (13.0-17.5) gm/dL Hct 40.9 (39.0-53.0) % MCV 91.2 (80.0-100.0) fL MCH 29.3 (25.0-35.0) pg MCHC 32.2 (31.0-37.0) g/dL RDW 14.6 (11.5-15.5) % Plt Count 257 (150-450) k/uL MPV 10.0 Neutrophils % 84 % Lymphocytes % 6 % Monocytes % 7 % Eosinophils % 1 % Basophils % 0 % Neutrophils # 13.0 H (1.3-7.7) k/uL Lymphocytes # 0.9 L (1.0-4.8) k/uL Monocytes # 1.0 (0-1.0) k/uL Eosinophils # 0.1 (0-0.7) k/uL Basophils # 0.1 (0-0.2) k/uL PT 10.6 (9.0-12.0) sec INR 1.0 (<1.2) APTT 29.5 (22.0-30.0) sec Sodium 133 L (137-145) mmol/L Potassium 5.6 H (3.5-5.1) mmol/L Chloride 100 (98-107) mmol/L Carbon Dioxide 18 L (22-30) mmol/L Anion Gap 15 mmol/L BUN 46 H (9-20) mg/dL Creatinine 1.57 H (0.66-1.25) mg/dL Est GFR (CKD-EPI)AfAm 50 (>60 ml/min/1.73 sqM) Est GFR (CKD-EPI)NonAf 43 (>60 ml/min/1.73 sqM) Glucose 141 H (74-99) mg/dL Calcium 9.9 (8.4-10.2) mg/dL Magnesium 2.4 H (1.6-2.3) mg/dL Total Bilirubin 0.6 (0.2-1.3) mg/dL AST 42 (17-59) U/L ALT 37 (4-49) U/L Alkaline Phosphatase 150 H (38-126) U/L Troponin I (0.000-0.034) ng/mL Total Protein 8.5 H (6.3-8.2) g/dL Albumin 4.7 (3.5-5.0) g/dL 01/12/22 Range/Units 12:19 WBC (3.8-10.6) k/uL RBC (4.30-5.90) m/uL Hgb (13.0-17.5) gm/dL Hct (39.0-53.0) % MCV (80.0-100.0) fL MCH (25.0-35.0) pg MCHC (31.0-37.0) g/dL RDW (11.5-15.5) % Plt Count (150-450) k/uL MPV Neutrophils % % Lymphocytes % % Monocytes % % Eosinophils % % Basophils % % Neutrophils # (1.3-7.7) k/uL Lymphocytes # (1.0-4.8) k/uL Monocytes # (0-1.0) k/uL Eosinophils # (0-0.7) k/uL Basophils # (0-0.2) k/uL PT (9.0-12.0) sec INR (<1.2) APTT (22.0-30.0) sec Sodium (137-145) mmol/L Potassium (3.5-5.1) mmol/L Chloride (98-107) mmol/L Carbon Dioxide (22-30) mmol/L Anion Gap mmol/L BUN (9-20) mg/dL Creatinine (0.66-1.25) mg/dL Est GFR (CKD-EPI)AfAm (>60 ml/min/1.73 sqM) Est GFR (CKD-EPI)NonAf (>60 ml/min/1.73 sqM) Glucose (74-99) mg/dL Calcium (8.4-10.2) mg/dL Magnesium (1.6-2.3) mg/dL Total Bilirubin (0.2-1.3) mg/dL AST (17-59) U/L ALT (4-49) U/L Alkaline Phosphatase (38-126) U/L Troponin I <0.012 (0.000-0.034) ng/mL Total Protein (6.3-8.2) g/dL Albumin (3.5-5.0) g/dL - EKG Data -: EKG Interpreted by Me EKG Comments: 12-lead Electrocardiogram Interpretation Note EKG was reviewed and interpreted by myself. 12-lead ECG performed at 1022 is interpreted by me as revealing normal sinus rhythm at a rate of 90 beats per minute. [place] is normal. ID intervals 204 ms, QRS duration is 94 ms, QTc is 389 ms.. There were no ST or T wave abnormalities to suggest myocardial ischemia or injury. R wave progression across the precordium was satisfactory. By my interpretation this EKG is non-diagnostic for acute ischemia. Disposition Clinical Impression: Fall, Chest wall pain, Dehydration, DOM (acute kidney injury), Orthostatic hypotension Disposition: ADMITTED IP TO THIS [facility] Condition: Stable Referrals: Miguel Bautista MD [Primary Care Provider] - 1-2 days Time of Disposition: 14:00
[2022-01-12] MEDS ORDERED: MELATONIN 5 MG TABLET PO PRN (14:36)
[2022-01-12 17:17] LABS: Glucose,Whole Blood 176 mg/dL (70-110)
[2022-01-12] MEDS ORDERED: INSULIN ASPART (NovoLOG) 100 UNIT/ML VIAL SQ SCH (17:30)
[2022-01-12 18:58] LABS: Appearance,Urine Clear (Clear); Bilirubin,Urine Negative (Negative); Blood,Urine Large (Negative); Color,Urine Yellow; Glucose,Urine (UA) Negative (Negative); Hyaline Casts,Urine 20 /lpf (0-2); Ketones,Urine Negative (Negative); Leukocyte Esterase,Urine Negative (Negative); Mucus,Urine Occasional /hpf; Nitrite,Urine Negative (Negative); PH, Urine 5.5 (5.0-8.0); Protein,Urine 1+ (Negative); RBC,Urine >182 /hpf (0-5); Specific Gravity,Urine 1.018 (1.001-1.035); Squamous Epithelial Cell,Urine <1 /hpf (0-4); Urobilinogen,Urine <2.0 mg/dL (<2.0); WBC,Urine 5 /hpf (0-5)
[2022-01-12 19:34] LABS: Glucose,Whole Blood 204 mg/dL (70-110)
[2022-01-12] MEDS ORDERED: METOPROLOL TARTRATE 25 MG TAB PO SCH (21:00)
[2022-01-12] MEDS: TAMSULOSIN 0.4 MG CAP.ER.24H PO SCH (21:01)
[2022-01-12] MEDS: APIXABAN 5 MG TAB PO SCH (21:01)
[2022-01-12] MEDS: INSULIN DETEMIR (LEVEMIR) 100 UNIT/ML SYR SQ SCH (21:01)
[2022-01-12] MEDS: SODIUM CHLORIDE 0.9% 1,000 ML IV SCH (21:02)
[2022-01-12] MEDS: TROSPIUM CHLORIDE 20 MG TABLET PO SCH (21:02)
[2022-01-12] MEDS: LATANOPROST 0.005% OPHTH DROPS 2.5 ML BTL BOTH EYES SCH (22:03)
--- NOTE | 2022-01-13 03:53 | HP ---
HISTORY AND PHYSICAL CHIEF COMPLAINT: Fall, left-sided chest pain as well as dehydration. HISTORY OF PRESENT ILLNESS: This is a 71-year-old gentleman with a past medical history of atrial fibrillation, multiple medical issues, is being followed by Dr. Bautista in the outpatient setting, apparently had a fall and complains of left-sided chest pain. The patient's rib x-rays are not showing any fractures, but localized tenderness was noted. The patient also has some dehydration, was reporting increased output from the ostomy also. There is no history of fever, rigors, or chills. The patient is orthostatic also. PAST MEDICAL HISTORY: Reviewed and include atrial fibrillation and multiple other medical issues. HOME MEDICATIONS: Reviewed and include Lopressor, dose and rest of medications noted. ALLERGIES: Include codeine. FAMILY HISTORY: History of diabetes mellitus and cancer in the family. SOCIAL HISTORY: Previous history of smoking. REVIEW OF SYSTEMS: A 14-point review of systems negative except as mentioned earlier. PHYSICAL EXAMINATION: VITAL SIGNS: Pulse 75, blood pressure 115/76, respirations 18, mildly orthostatic. HEENT: Conjunctivae normal. Oral mucosa is dry. NECK: No JVD. CARDIOVASCULAR: S1, S2 muffled. RESPIRATIONS: on the left side. ABDOMEN: Soft, nontender. LEGS: No edema. No swelling. NERVOUS SYSTEM: No focal deficit. SKIN: No ulcer, rash, bleeding. LABORATORY DATA: Reviewed. WBC 15. Other labs are reviewed. ASSESSMENT: 1. Left-sided chest pain, possibly secondary to trauma and rib contusion. 2. Dehydration. 3. Orthostatic hypotension. 4. Atrial fibrillation. 5. Diabetes mellitus type 2. 6. Multiple medical issues. RECOMMENDATIONS AND DISCUSSION: This is a 71-year-old gentleman who presented with multiple complex medical issues, we will monitor the patient closely. I will recommend 1 more bolus fluid administration. Otherwise, resume the home medications. Monitor blood pressure closely. Cardiology consultations. IV fluids. Symptomatic treatment. Prognosis guarded. Further recommendations to follow. See orders for details. MMODL / IJN: [id number] / MTDD
[2022-01-13] MEDS: SODIUM CHLORIDE 0.9% 1,000 ML IV SCH ×3 (05:25→21:16)
[2022-01-13 07:22] LABS: Glucose,Whole Blood 65 mg/dL (70-110)
[2022-01-13] MEDS ORDERED: INSULIN ASPART (NovoLOG) 100 UNIT/ML VIAL SQ SCH ×2 (07:30→12:30)
[2022-01-13 07:35] LABS: Glucose,Whole Blood 89 mg/dL (70-110)
[2022-01-13] MEDS: ATORVASTATIN 80 MG TAB PO SCH (08:00)
[2022-01-13] MEDS: MULTIVITAMINS, THERA 1 EACH TAB PO SCH (08:00)
[2022-01-13] MEDS: APIXABAN 5 MG TAB PO SCH ×2 (08:00→21:15)
[2022-01-13] MEDS: LORATADINE 10 MG TAB PO SCH (08:00)
[2022-01-13] MEDS: CHOLECALCIFEROL 25 MCG (1000 IU) TABLET PO SCH (08:00)
[2022-01-13] MEDS: PANTOPRAZOLE 40 MG TABLET PO SCH (08:00)
[2022-01-13] MEDS: ASCORBIC ACID 500 MG TAB PO SCH (08:00)
[2022-01-13] MEDS: TROSPIUM CHLORIDE 20 MG TABLET PO SCH ×2 (08:01→21:15)
--- NOTE | 2022-01-13 09:08 | P.CRDCN ---
History of Present Illness History of present illness: HISTORY OF PRESENT ILLNESS: This is a 71-year-old male with a past medical history significant for coronary artery disease with previous CABG 4 in 2020, paroxysmal atrial flutter, hypertension, hyperlipidemia, diabetes, and ulcerative colitis with ileostomy. Patient follows in the office with Dr. Gaitan. We have been asked to see the patient in consultation for syncope and chest pain. Patient examined at the bedside. Patient got up from his bed at home to empty his ostomy when he ended up on the floor. He does not remember the incident. He is complaining of left chest wall discomfort, which is likely secondary to his fall. His pain is worse with deep inspiration and tender with chest wall palpation. The patient was found to be hypotensive with a blood pressure as low as 70 systolic. The patient also believes he has been dehydrated secondary to his ileostomy. * EKG reveals sinus mechanism with no signs of acute ischemia * Chest xray negative for acute process * Laboratory data: WBC 15.5. Hemoglobin 13.1. Blood count 257. Sodium 133. Potassium 5.6. BUN 46. Creatinine 1.57. Troponin negative 3. * Current home cardiac medications include Lipitor 80 mg daily, Eliquis 5 mg twice a day, metoprolol tartrate 75 mg the morning, 25 mg at noon, and 75 mg at night * Most recent echocardiogram obtained in February 2021 revealed ejection fraction 40-45%. REVIEW OF SYSTEMS: At the time of my exam: CONSTITUTIONAL: Denies fever or chills. HEENT: Denies blurred vision, vision changes, or eye pain. Denies hemoptysis CARDIOVASCULAR: Denies chest pain. Denies orthopnea. Denies PND. Denies palpitations RESPIRATORY: Denies shortness of breath. GASTROINTESTINAL: Denies abdominal pain. Denies nausea or vomiting. HEMATOLOGIC: Denies bleeding disorders. GENITOURINARY: Denies any blood in urine. SKIN: Denies pruitis. Denies rash. PHYSICAL EXAM: VITAL SIGNS: Reviewed. GENERAL: Well-developed in no acute distress. HEENT: Head is normocephalic. Pupils are equal, round. Sclerae anicteric. Mucous membranes of the mouth are moist. Neck supple. No JVD or thyromegaly LUNGS: Respirations even and unlabored. Lungs essentially clear to auscultation bilaterally. HEART: Regular rate and rhythm. S1 and S2 heard. ABDOMEN: Soft. Nondistended. Nontender. EXTREMITIES: Normal range of motion. No clubbing or cyanosis. Peripheral pulses intact. No lower extremity edema NEUROLOGIC: Awake and alert. Oriented x 3. ASSESSMENT: Syncope, likely secondary to hypotension along with dehydration Chest pain, acute coronary syndrome ruled out, likely secondary to fall Coronary artery disease with previous CABG 4 Paroxysmal atrial flutter Hypertension Hyperlipidemia Diabetes Ulcerative colitis with history of ileostomy PLAN: No need to obtain echocardiogram per Dr. Clark Resume home cardiac medications Decrease metoprolol to 50mg BID Monitor blood pressure Patient instructed to change positions slowly at home when he is getting out of bed to a standing position Patient is currently stable from a cardiac standpoint. He may be discharged home today and follow up outpatient with Dr. Gaitan Nurse practitioner note has been reviewed by physician. Signing provider agrees with the documented findings, assessment, and plan of care. 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, IDDM type II, ulcerative colitis/had J pouch and later i leostomy, chronic diarrhea/dehydration, ileal polyps, recurrent nephrolithiasis, pyelonephritis, BPH, ANGEL occasionally wears Cpap, chronic low iron, bilaterally WICHITA/aides, takes eye drops to prevent glaucoma History of Any Multi-Drug Resistant Organisms: None Reported Past Surgical History: Appendectomy, Bowel Resection, Coronary Bypass/CABG, Heart Catheterization, Hernia Repair, Joint Replacement Additional Past Surgical History / Comment(s): 2020 CABG with 4 vessel bypass, colectomy with ileostomy, previous J pouch, colonoscopies, EGD, abdominal hernia/mesh, lithotripsy with R ureteral stent, L partial knee arthroplasty, bilateral cataract removal/lens implants, L eye surgery for detached retina. Past Anesthesia/Blood Transfusion Reactions: No Reported Reaction Additional Past Anesthesia/Blood Transfusion Reaction / Comment(s): PATIENT HAD SURGERY FOR LEFT EYE DETACHED RETINA AND DEVELOPED GAS BUBBLE IN L EYE. HE WAS INSTRUCTED TO NOT RECEIVE NITROUS OXIDE OR RIDE IN A PLANE UNTIL GAS BUBBLE IS GONE. Smoking Status: Former smoker - Past Family History Mother Family Medical History: Cancer, Diabetes Mellitus Additional Family Medical History / Comment(s): Mother at age 84 from [place] Father Additional Family Medical History / Comment(s): Father is with history of coronary artery disease. Brother(s) Family Medical History: Coronary Artery Disease (CAD), Vascular Disorder Additional Family Medical History / Comment(s): Patient has 4 brothers. Two at the age of 44 from coronary artery disease with history of tobacco use and alcohol dependence. One from aneurysm in the chest. Medications and Allergies Home Medications Medication Instructions Recorded Confirmed Type Finasteride [Proscar] 5 mg PO DAILY 02/06/17 01/12/22 History Multivit-Min/FA/Lycopen/Lutein 1 cap PO DAILY 02/06/17 01/12/22 History [Centrum Silver Men Tablet] Tamsulosin [Flomax] 0.4 mg PO HS 02/06/17 01/12/22 History Trospium Chloride [Sanctura] 20 mg PO BID 02/06/17 01/12/22 History Cholecalciferol [Vitamin D3 (25 25 mcg PO DAILY 11/19/17 01/12/22 History Mcg = 1000 Iu)] Omeprazole 40 mg PO DAILY 12/05/18 01/12/22 History Cranberry Fruit Extract [Cranberry] 200 mg PO DAILY #0 08/29/20 01/12/22 History Loratadine [Claritin] 10 mg PO DAILY 08/29/20 01/12/22 History Turmeric Root Extract [Turmeric] 1,000 mg PO BID 08/29/20 01/12/22 History Melatonin 5 mg PO HS PRN tablet 02/14/21 01/12/22 Rx Apixaban [Eliquis] 5 mg PO BID 01/12/22 01/12/22 History Ascorbic Acid [Vitamin C] 500 mg PO DAILY 01/12/22 01/12/22 History Atorvastatin [Lipitor] 80 mg PO DAILY 01/12/22 01/12/22 History Cranberry 450mg 1 tab PO DAILY 01/12/22 01/12/22 History Insulin Glargine,Hum.rec.anlog 35 unit SQ HS 01/12/22 01/12/22 History [Basaglar Kwikpen U-100] Insulin Lispro [humaLOG Kwikpen] 8 unit SQ AC-TID 01/12/22 01/12/22 History Latanoprost/Pf [Latanoprost 0.005% 1 drop BOTH EYES HS 01/12/22 01/12/22 History Eye Drop] Metoprolol Tartrate [Lopressor] 25 mg PO DAILY@1200 01/12/22 01/12/22 History Metoprolol Tartrate [Lopressor] 75 mg PO BID@0900,2100 01/12/22 01/12/22 History Allergies Allergy/AdvReac Type Severity Reaction Status Date / Time codeine Allergy Rash/Hives Verified 01/12/22 13:43 morphine Allergy Rash/Hives Verified 01/12/22 13:43 Physical Exam Vitals: Vital Signs Temp Pulse Pulse Pulse Pulse Pulse Pulse 01/13/22 07:00 97.5 F L 80 01/13/22 01:17 98.4 F 87 01/13/22 00:55 01/12/22 20:51 97 102 H 98 01/12/22 19:35 98.6 F 98 01/12/22 15:50 98.2 F 81 01/12/22 14:46 78 01/12/22 14:39 01/12/22 13:50 01/12/22 13:48 01/12/22 13:44 76 01/12/22 12:48 75 01/12/22 10:29 97.9 F 98 Resp BP BP BP BP BP Pulse Ox 01/13/22 07:00 16 102/64 91 L 01/13/22 01:17 17 96/63 96 01/13/22 00:55 16 01/12/22 20:51 91/60 88/57 100/63 97 01/12/22 19:35 16 100/63 98 01/12/22 15:50 18 97/64 99 01/12/22 14:46 18 92/62 98 01/12/22 14:39 72/56 01/12/22 13:50 78/61 01/12/22 13:48 94/59 01/12/22 13:44 18 01/12/22 12:48 18 115/77 95 01/12/22 10:29 16 101/69 96 Intake and Output 01/12/22 01/13/22 01/13/22 22:59 06:59 14:59 Intake Total 1000 1000 Balance 1000 1000 Intake: Intake, IV Titration 1000 1000 Amount Sodium Chloride 0.9% 1, 1000 1000 000 ml @ 999 mls/hr IV . Q1H1M STA Rx#:[id number] Other: Voiding Method Toilet Toilet Weight 69.4 kg Results 01/12/22 12:19 01/12/22 12:19 Cardiac Enzymes 01/12/22 01/12/22 01/12/22 Range/Units 12:19 12:19 15:29 AST 42 (17-59) U/L Troponin I <0.012 <0.012 (0.000-0.034) ng/mL 01/12/22 Range/Units 18:42 AST (17-59) U/L Troponin I <0.012 (0.000-0.034) ng/mL Coagulation 01/12/22 Range/Units 12:19 PT 10.6 (9.0-12.0) sec APTT 29.5 (22.0-30.0) sec CBC 01/12/22 Range/Units 12:19 WBC 15.5 H (3.8-10.6) k/uL RBC 4.48 (4.30-5.90) m/uL Hgb 13.1 (13.0-17.5) gm/dL Hct 40.9 (39.0-53.0) % Plt Count 257 (150-450) k/uL Comprehensive Metabolic Panel 01/12/22 Range/Units 12:19 Sodium 133 L (137-145) mmol/L Potassium 5.6 H (3.5-5.1) mmol/L Chloride 100 (98-107) mmol/L Carbon Dioxide 18 L (22-30) mmol/L BUN 46 H (9-20) mg/dL Creatinine 1.57 H (0.66-1.25) mg/dL Glucose 141 H (74-99) mg/dL Calcium 9.9 (8.4-10.2) mg/dL AST 42 (17-59) U/L ALT 37 (4-49) U/L Alkaline Phosphatase 150 H (38-126) U/L Total Protein 8.5 H (6.3-8.2) g/dL Albumin 4.7 (3.5-5.0) g/dL Current Medications Generic Name Dose Route Start Last Admin Trade Name Mauriceq PRN Reason Stop Dose Admin Apixaban 5 mg 01/12/22 21:00 01/12/22 21:01 Apixaban 5 Mg Tab PO 5 mg BID [facility] Administration Protocol Ascorbic Acid 500 mg 01/13/22 09:00 Ascorbic Acid 500 Mg Tab PO DAILY [facility] Atorvastatin Calcium 80 mg 01/13/22 09:00 Atorvastatin 80 Mg Tab PO DAILY [facility] Cholecalciferol 25 mcg 01/13/22 09:00 Cholecalciferol 25 Mcg (1000 Iu) Tablet PO DAILY [facility] Finasteride 5 mg 01/13/22 09:00 Finasteride 5 Mg Tab PO DAILY [facility] Sodium Chloride 1,000 mls @ 135 mls/hr 01/12/22 20:45 01/13/22 05:25 Saline 0.9% IV 135 mls/hr .Q7H25M [facility] Administration Insulin Aspart 7 unit 01/13/22 07:30 Insulin Aspart (Novolog) 100 Unit/Ml Vial SQ AC-TID [facility] Insulin Detemir 35 unit 01/12/22 21:00 01/12/22 21:01 Insulin Detemir (Levemir) 100 Unit/Ml Syr SQ 35 unit HS [facility] Administration Ketorolac Tromethamine 15 mg 01/12/22 14:15 Ketorolac 15 Mg/Ml 1 Ml Vial IVP 01/15/22 14:15 Q6HR PRN Pain Latanoprost 1 drops 01/12/22 21:00 01/12/22 22:03 Latanoprost 0.005% Ophth Drops 2.5 Ml Btl BOTH EYES 1 drops HS [facility] Administration Loratadine 10 mg 01/13/22 09:00 Loratadine 10 Mg Tab PO DAILY [facility] Melatonin 5 mg 01/12/22 14:36 Melatonin 5 Mg Tablet PO HS PRN Insomnia Metoprolol Tartrate 25 mg 01/13/22 12:00 Metoprolol Tartrate 25 Mg Tab PO DAILY@1200 [facility] Multivitamins 1 each 01/13/22 09:00 Multivitamins, Thera 1 Each Tab PO DAILY [facility] Naloxone HCl 0.2 mg 01/12/22 14:13 Naloxone 0.4 Mg/Ml 1 Ml Vial IV Q2M PRN Opioid Reversal Ondansetron HCl 4 mg 01/12/22 14:13 Ondansetron 4 Mg/2 Ml Vial IVP Q8HR PRN Nausea And Vomiting Pantoprazole Sodium 40 mg 01/13/22 07:30 Pantoprazole 40 Mg Tablet PO AC-BRKFST KRISTIN Tamsulosin HCl 0.4 mg 01/12/22 21:00 01/12/22 21:01 Tamsulosin 0.4 Mg Cap.Er.24h PO 0.4 mg HS [facility] Administration Trospium 20 mg 01/12/22 21:00 01/12/22 21:02 Trospium Chloride 20 Mg Tablet PO 20 mg BID [facility] Administration Intake and Output 01/12/22 01/13/22 01/13/22 22:59 06:59 14:59 Intake Total 1000 1000 Balance 1000 1000 Intake: Intake, IV Titration 1000 1000 Amount Sodium Chloride 0.9% 1, 1000 1000 000 ml @ 999 mls/hr IV . Q1H1M STA Rx#:[id number] Other: Voiding Method Toilet Toilet Weight 69.4 kg 01/12/22 12:19 01/12/22 12:19
[2022-01-13 09:28] LABS: African American GFR (CKD) 69.1 (60.0-200.0); Anion Gap 7.8 mmol/L (10.00-18.00); BUN/Creat Ratio 21.33 Ratio (12.00-20.00); Blood Urea Nitrogen 25.6 mg/dL (9.0-27.0); Calcium 8.7 mg/dL (8.7-10.3); Carbon Dioxide 22.2 mmol/L (20.0-27.5); Non-African American GFR(CKD) 59.6 (60.0-200.0); Potassium 5.2 mmol/L (3.5-5.5)
[2022-01-13 09:30] LABS: Basophils # (A) 0.04 X 10*3/uL (0.00-0.10); Basophils % (A) 0.3 %; Eosinophils # (A) 0.06 X 10*3/uL (0.04-0.35); Eosinophils % (A) 0.5 %; HCT 34.8 % (39.6-50.0); HGB 10.8 g/dL (13.0-17.0); Immature Grans, Automated 0.9 %; Lymphocytes # (A) 0.73 X 10*3/uL (0.90-5.00); Lymphocytes % (A) 5.8 %; MCH 28.8 pg (27.0-32.0); MCV 92.8 fL (80.0-97.0); Mean Platelet Volume 12.9 fL (9.5-12.2); Monocytes % (A) 10.3 %; NRBC Per 100 WBC 0 /100 WBCS (0.0-0.0); Neutrophils # (A) 10.35 X 10*3/uL (1.80-7.70); Neutrophils % (A) 82.2 %; Platelet Count 190 X 10*3/uL (140-440); RBC 3.75 X 10*6/uL (4.40-5.60); RDW 14.6 % (11.5-14.5); WBC 12.59 X 10*3/uL (4.50-10.00)
[2022-01-13] MEDS: METOPROLOL TARTRATE 50 MG TAB PO SCH ×2 (11:06→21:20)
[2022-01-13 11:45] LABS: Glucose,Whole Blood 134 mg/dL (70-110)
[2022-01-13] MEDS ORDERED: METOPROLOL TARTRATE 25 MG TAB PO SCH (12:00)
[2022-01-13] MEDS: FINASTERIDE 5 MG TAB PO SCH (14:45)
[2022-01-13 17:05] LABS: Glucose,Whole Blood 158 mg/dL (70-110)
[2022-01-13] MEDS: INSULIN ASPART (NovoLOG) 100 UNIT/ML VIAL SQ SCH ×2 (18:13→21:20)
[2022-01-13] MEDS: ACETAMINOPHEN TAB 325 MG TAB PO PRN (19:39)
[2022-01-13 21:14] LABS: Glucose,Whole Blood 292 mg/dL (70-110)
[2022-01-13] MEDS: INSULIN DETEMIR (LEVEMIR) 100 UNIT/ML SYR SQ SCH (21:14)
[2022-01-13] MEDS: TAMSULOSIN 0.4 MG CAP.ER.24H PO SCH (21:15)
[2022-01-13] MEDS: LATANOPROST 0.005% OPHTH DROPS 2.5 ML BTL BOTH EYES SCH (21:15)
[2022-01-14] MEDS: ACETAMINOPHEN TAB 325 MG TAB PO PRN ×3 (04:13→19:59)
--- NOTE | 2022-01-14 04:54 | PN ---
PROGRESS NOTE This is a 71-year-old gentleman admitted with left-sided chest pain, possibly rib contusion and dehydration, is being closely monitored. The patient's blood pressure is borderline. No chest pain. No palpitation. PHYSICAL EXAMINATION: VITAL SIGNS: Pulse is 86, blood pressure 97/63. Not much orthostatic changes. Respiration 20. HEENT: Conjunctivae normal. NECK: No jugular venous distention. CARDIOVASCULAR: S1, S2 muffled. RESPIRATION: Breath sounds diminished at the bases. No rhonchi. No crackles. ABDOMEN: Soft. NERVOUS SYSTEM: No focal deficits. LABORATORY DATA: WBC , hemoglobin is 10.8. ASSESSMENT: 1. Left-sided chest pain, possibly secondary to trauma and rib contusion. 2. Dehydration. 3. Orthostatic hypotension. 4. Atrial fibrillation. 5. Diabetes mellitus, type 2. 6. Multiple medical issues. RECOMMENDATIONS AND DISCUSSION: Recommend to continue current medications, continue symptomatic treatment. Otherwise, I recommend pain medications. Continue with IV fluids. Add iron and closely follow with Cardiology. Further recommendations to follow. Cut down the dose of beta blockers. MMODL / IJN: [id number] /
[2022-01-14] MEDS: SODIUM CHLORIDE 0.9% 1,000 ML IV SCH ×3 (05:07→18:31)
[2022-01-14 07:29] LABS: Glucose,Whole Blood 169 mg/dL (70-110)
[2022-01-14] MEDS: TROSPIUM CHLORIDE 20 MG TABLET PO SCH ×2 (07:29→21:03)
[2022-01-14] MEDS: CHOLECALCIFEROL 25 MCG (1000 IU) TABLET PO SCH (07:30)
[2022-01-14] MEDS: ASCORBIC ACID 500 MG TAB PO SCH (07:30)
[2022-01-14] MEDS: MULTIVITAMINS, THERA 1 EACH TAB PO SCH (07:30)
[2022-01-14] MEDS: APIXABAN 5 MG TAB PO SCH ×2 (07:30→21:00)
[2022-01-14] MEDS: PANTOPRAZOLE 40 MG TABLET PO SCH (07:30)
[2022-01-14] MEDS: FINASTERIDE 5 MG TAB PO SCH (07:30)
[2022-01-14] MEDS: ATORVASTATIN 80 MG TAB PO SCH (07:30)
[2022-01-14] MEDS: METOPROLOL TARTRATE 50 MG TAB PO SCH ×2 (07:31→21:06)
[2022-01-14] MEDS: LORATADINE 10 MG TAB PO SCH (07:31)
[2022-01-14] MEDS: INSULIN ASPART (NovoLOG) 100 UNIT/ML VIAL SQ SCH ×3 (08:18→21:06)
[2022-01-14 09:18] LABS: Basophils # (A) 0.1 k/uL (0-0.2); Basophils % (A) 0 %; Eosinophils # (A) 0.2 k/uL (0-0.7); Eosinophils % (A) 1 %; HCT 33.3 % (39.0-53.0); HGB 10.6 gm/dL (13.0-17.5); Hypochromasia Slight; Lymphocytes # (A) 0.7 k/uL (1.0-4.8); Lymphocytes % (A) 5 %; MCH 29.9 pg (25.0-35.0); MCHC 31.7 g/dL (31.0-37.0); MCV 94.3 fL (80.0-100.0); Mean Platelet Volume 11.9; Monocytes # (A) 0.9 k/uL (0-1.0); Monocytes % (A) 7 %; Neutrophils # (A) 11.5 k/uL (1.3-7.7); Neutrophils % (A) 85 %; Platelet Count 173 k/uL (150-450); RBC 3.53 m/uL (4.30-5.90); RDW 14.9 % (11.5-15.5); WBC 13.4 k/uL (3.8-10.6)
[2022-01-14 09:23] LABS: African American GFR (CKD) 80 (>60 ml/min/1.73 sqM); Anion Gap 6 mmol/L; Blood Urea Nitrogen 16 mg/dL (9-20); Carbon Dioxide 17 mmol/L (22-30); Chloride 113 mmol/L (98-107); Glucose 98 mg/dL (74-99); Non-African American GFR(CKD) 69 (>60 ml/min/1.73 sqM); Potassium 4.2 mmol/L (3.5-5.1); Sodium 136 mmol/L (137-145)
[2022-01-14] MEDS: LIDOCAINE 5% PATCH TOPICAL SCH (09:35)
--- NOTE | 2022-01-14 11:52 | P.PN ---
Subjective Progress Note Date: 01/14/22 HISTORY OF PRESENT ILLNESS: This is a 71-year-old male with a past medical history significant for coronary artery disease with previous CABG 4 in 2020, paroxysmal atrial flutter, h ypertension, hyperlipidemia, diabetes, and ulcerative colitis with ileostomy. Patient follows in the office with Dr. Gaitan. We have been asked to see the patient in consultation for syncope and chest pain. Patient examined at the bedside. Patient got up from his bed at home to empty his ostomy when he ended up on the floor. He does not remember the incident. He is complaining of left chest wall discomfort, which is likely secondary to his fall. His pain is worse with deep inspiration and tender with chest wall palpation. The patient was found to be hypotensive with a blood pressure as low as 70 systolic. The patient also believes he has been dehydrated secondary to his ileostomy. * EKG reveals sinus mechanism with no signs of acute ischemia * Chest xray negative for acute process * Laboratory data: WBC 15.5. Hemoglobin 13.1. Blood count 257. Sodium 133. Potassium 5.6. BUN 46. Creatinine 1.57. Troponin negative 3. * Current home cardiac medications include Lipitor 80 mg daily, Eliquis 5 mg twice a day, metoprolol tartrate 75 mg the morning, 25 mg at noon, and 75 mg at night * Most recent echocardiogram obtained in February 2021 revealed ejection fraction 40-45%. 01/14/2022 Patient examined this morning at the bedside. Patient denies chest pain or pressure. Denies SOB. Patients was not discharged home yesterday secondary to developing a fever of 102. PHYSICAL EXAM: VITAL SIGNS: Reviewed. GENERAL: Well-developed in no acute distress. HEENT: Head is normocephalic. Pupils are equal, round. Sclerae anicteric. Mucous membranes of the mouth are moist. Neck supple. No JVD or thyromegaly LUNGS: Respirations even and unlabored. Lungs essentially clear to auscultation bilaterally. HEART: Regular rate and rhythm. S1 and S2 heard. ABDOMEN: Soft. Nondistended. Nontender. EXTREMITIES: Normal range of motion. No clubbing or cyanosis. Peripheral pulses intact. No lower extremity edema NEUROLOGIC: Awake and alert. Oriented x 3. ASSESSMENT: Fever Syncope, likely secondary to hypotension along with dehydration Chest pain, acute coronary syndrome ruled out, likely secondary to fall Coronary artery disease with previous CABG 4 Paroxysmal atrial flutter Hypertension Hyperlipidemia Diabetes Ulcerative colitis with history of ileostomy PLAN: Continue current cardiac medications Monitor blood pressure Hold cardiac medications for SBP less than 90 Management of fever per internal medicine We will sign off. Please reconsult if needed. Nurse practitioner note has been reviewed by physician. Signing provider agrees with the documented findings, assessment, and plan of care. Objective - Vital Signs Vital signs: Vital Signs Temp 99 F 01/14/22 07:00 Pulse 87 01/14/22 08:00 Resp 18 01/14/22 08:00 BP 75/46 01/14/22 07:00 Pulse Ox 97 01/14/22 07:00 FiO2 Intake & Output 01/13/22 01/14/22 01/14/22 18:59 06:59 18:59 Intake Total 236 Output Total 350 Balance -114 Intake: Oral 236 Output: Urine 350 Other: Voiding Method Toilet Toilet Toilet # Voids 1 3 # Bowel Movements 3 - Labs CBC & Chem 7: 01/14/22 04:22 01/14/22 04:22 Labs: Abnormal Lab Results - Last 24 Hours (Table) 01/13/22 01/13/22 01/14/22 Range/Units 17:00 21:13 04:22 WBC 13.4 H (3.8-10.6) k/uL RBC 3.53 L (4.30-5.90) m/uL Hgb 10.6 L (13.0-17.5) gm/dL Hct 33.3 L (39.0-53.0) % Neutrophils # 11.5 H (1.3-7.7) k/uL Lymphocytes # 0.7 L (1.0-4.8) k/uL Sodium (137-145) mmol/L Chloride (98-107) mmol/L Carbon Dioxide (22-30) mmol/L POC Glucose (mg/dL) 158 H 292 H (70-110) mg/dL Calcium (8.4-10.2) mg/dL 01/14/22 01/14/22 Range/Units 04:22 07:26 WBC (3.8-10.6) k/uL RBC (4.30-5.90) m/uL Hgb (13.0-17.5) gm/dL Hct (39.0-53.0) % Neutrophils # (1.3-7.7) k/uL Lymphocytes # (1.0-4.8) k/uL Sodium 136 L (137-145) mmol/L Chloride 113 H (98-107) mmol/L Carbon Dioxide 17 L (22-30) mmol/L POC Glucose (mg/dL) 169 H (70-110) mg/dL Calcium 8.0 L (8.4-10.2) mg/dL
[2022-01-14 12:38] LABS: Glucose,Whole Blood 130 mg/dL (70-110)
[2022-01-14 15:00] LABS: Appearance,Urine Clear (Clear); Bacteria,Urine Rare /hpf; Bilirubin,Urine Negative (Negative); Blood,Urine Trace (Negative); Color,Urine Yellow; Glucose,Urine (UA) Negative (Negative); Ketones,Urine Negative (Negative); Leukocyte Esterase,Urine Negative (Negative); Mucus,Urine Rare /hpf; Nitrite,Urine Negative (Negative); Protein,Urine Trace (Negative); RBC,Urine 10 /hpf (0-5); Specific Gravity,Urine 1.011 (1.001-1.035); Squamous Epithelial Cell,Urine <1 /hpf (0-4); Urobilinogen,Urine <2.0 mg/dL (<2.0); WBC,Urine <1 /hpf (0-5)
[2022-01-14 17:25] LABS: Glucose,Whole Blood 234 mg/dL (70-110)
--- NOTE | 2022-01-14 18:54 | P.PN ---
Subjective Progress Note Date: 01/14/22 71-year-old male with past medical history remarkable for atrial fibrillation on anticoagulation, diabetes, hypertension, colostomy who presents emergency Department complaining of left-sided rib pain/chest pain. Was also complaining of a syncopal versus fall episode last night. Is uncertain what happened last night but per patient's , patient stood up and then fell to the ground. Landed on carpet. Uncertain if he hit his head. Went back to sleep. Does have a history of sleepwalking and is uncertain if this is what caused it. States he does believe he may be dehydrated at this time. Otherwise has been acting normally since the event. Please see did hit his ribs last night as well, as he is having point tenderness over the left inferior ribs in the anterior axillary line. Pain does not radiate. Denies shortness of breath. States the pain is worse with any movement of the thorax or his left arm. Denies any back pain. Denies any abdominal pain, nausea, vomiting. Denies any cough. His no other acute complaint at this time. Presents for further evaluation.Patient states he has had less by mouth intake of water recently, but denies any worsening or increased output from his ostomy site. States his brother dehydration since the ostomy. Denies any melena, bloody stools. Denies constipation. Objective - Vital Signs Vital signs: Vital Signs Temp 99 F 01/14/22 07:00 Pulse 87 01/14/22 08:00 Resp 18 01/14/22 08:00 BP 75/46 01/14/22 07:00 Pulse Ox 97 01/14/22 07:00 FiO2 Intake & Output 01/13/22 01/14/22 01/14/22 18:59 06:59 18:59 Intake Total 236 Output Total 350 Balance -114 Intake: Oral 236 Output: Urine 350 Other: Voiding Method Toilet Toilet Toilet # Voids 1 3 # Bowel Movements 3 - Exam PHYSICAL EXAMINATION: GENERAL: The patient is alert and oriented x3, not in any acute distress. Well developed, well nourished. HEENT: Pupils are round and equally reacting to light. EOMI. No scleral icterus. No conjunctival pallor. Normocephalic, atraumatic. No pharyngeal erythema. No thyromegaly. CARDIOVASCULAR: S1 and S2 present. No murmurs, rubs, or gallops. PULMONARY: Chest is clear to auscultation, no wheezing or crackles. ABDOMEN: Soft, nontender, nondistended, normoactive bowel sounds. No palpable organomegaly. MUSCULOSKELETAL: No joint swelling or deformity. EXTREMITIES: No cyanosis, clubbing, or pedal edema. NEUROLOGICAL: Gross neurological examination did not reveal any focal deficits. SKIN: No rashes. - Labs CBC & Chem 7: 01/14/22 04:22 01/14/22 04:22 Labs: Abnormal Lab Results - Last 24 Hours (Table) 01/13/22 01/13/22 01/14/22 Range/Units 17:00 21:13 04:22 WBC 13.4 H (3.8-10.6) k/uL RBC 3.53 L (4.30-5.90) m/uL Hgb 10.6 L (13.0-17.5) gm/dL Hct 33.3 L (39.0-53.0) % Neutrophils # 11.5 H (1.3-7.7) k/uL Lymphocytes # 0.7 L (1.0-4.8) k/uL Sodium (137-145) mmol/L Chloride (98-107) mmol/L Carbon Dioxide (22-30) mmol/L POC Glucose (mg/dL) 158 H 292 H (70-110) mg/dL Calcium (8.4-10.2) mg/dL 01/14/22 01/14/22 01/14/22 Range/Units 04:22 07:26 12:36 WBC (3.8-10.6) k/uL RBC (4.30-5.90) m/uL Hgb (13.0-17.5) gm/dL Hct (39.0-53.0) % Neutrophils # (1.3-7.7) k/uL Lymphocytes # (1.0-4.8) k/uL Sodium 136 L (137-145) mmol/L Chloride 113 H (98-107) mmol/L Carbon Dioxide 17 L (22-30) mmol/L POC Glucose (mg/dL) 169 H 130 H (70-110) mg/dL Calcium 8.0 L (8.4-10.2) mg/dL Assessment and Plan Assessment: Syncope, likely secondary to hypotension along with dehydration Chest pain, acute coronary syndrome ruled out, likely secondary to fall Coronary artery disease with previous CABG 4 Paroxysmal atrial flutter Hypertension Hyperlipidemia Diabetes Ulcerative colitis with history of ileostomy PLAN: No need to obtain echocardiogram per Dr. Clark Resume home cardiac medications Decrease metoprolol to 50mg BID Monitor blood pressure Patient instructed to change positions slowly at home when he is getting out of bed to a standing position
[2022-01-14 20:48] LABS: Glucose,Whole Blood 180 mg/dL (70-110)
[2022-01-14] MEDS: TAMSULOSIN 0.4 MG CAP.ER.24H PO SCH (21:00)
[2022-01-14] MEDS: LATANOPROST 0.005% OPHTH DROPS 2.5 ML BTL BOTH EYES SCH (21:00)
[2022-01-14] MEDS: INSULIN DETEMIR (LEVEMIR) 100 UNIT/ML SYR SQ SCH (21:00)
--- NOTE | 2022-01-14 22:45 | P.CONS ---
History of Present Illness - Reason for Consult Consult date: 01/14/22 Fever Requesting physician: Shamir E Sheet - Chief Complaint Fall and passed out x 2 days - History of Present Illness Patient is a 71-year-old male with a past medical history significant for atrial fibrillation diabetes mellitus hypertension ulcerative colitis and has been status post colectomy and ileostomy patient was brought into the ER 2 days ago after apparently the patient did have a fall/syncopal episode the night before presentation to the hospital patient apparently mention he may have woken up at night to go to the bathroom to empty his ileostomy and apparently did have a fall which he did not remember patient was not sure if he hit his head went back to sleep however the next day presented hospital complaining of weakness and has been not been acting normal patient on presentation to the hospital was afebrile however he did spike a fever last evening of 102.6 F that has prompted this infectious disease consultation patient was mildly tachycardic however not hypoxic or need for supplemental oxygen patient did have a admission value of 15.4 which is down to 13.4 patient did have a normal creatinine level recently normal urinary patient was showing some hematuria patient did have a chest and rib x-ray that was negative for acute cardiopulmonary process Review of Systems Positive point has been mentioned in the HPI rest of the systems are negative 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, IDDM type II, ulcerative colitis/had J pouch and later ileostomy, chronic diarrhea/dehydration, ileal polyps, recurrent nephrolithiasis, pyelonephritis, BPH, ANGEL occasionally wears Cpap, chronic low iron, bilaterally REDDING/aides, takes eye drops to prevent glaucoma History of Any Multi-Drug Resistant Organisms: None Reported Past Surgical History: Appendectomy, Bowel Resection, Coronary Bypass/CABG, Heart Catheterization, Hernia Repair, Joint Replacement Additional Past Surgical History / Comment(s): 2020 CABG with 4 vessel bypass, colectomy with ileostomy, previous J pouch, colonoscopies, EGD, abdominal hernia/mesh, lithotripsy with R ureteral stent, L partial knee arthroplasty, bilateral cataract removal/lens implants, L eye surgery for detached retina. Past Anesthesia/Blood Transfusion Reactions: No Reported Reaction Additional Past Anesthesia/Blood Transfusion Reaction / Comm: PATIENT HAD SURGERY FOR LEFT EYE DETACHED RETINA AND DEVELOPED GAS BUBBLE IN L EYE. HE WAS INSTRUCTED TO NOT RECEIVE NITROUS OXIDE OR RIDE IN A PLANE UNTIL GAS BUBBLE IS GONE. Smoking Status: Former smoker - Past Family History Mother Family Medical History: Cancer, Diabetes Mellitus Additional Family Medical History / Comment(s): Mother at age 84 from [place] Father Additional Family Medical History / Comment(s): Father is with history of coronary artery disease. Brother(s) Family Medical History: Coronary Artery Disease (CAD), Vascular Disorder Additional Family Medical History / Comment(s): Patient has 4 brothers. Two at the age of 44 from coronary artery disease with history of tobacco use and alcohol dependence. One from aneurysm in the chest. Medications and Allergies Home Medications Medication Instructions Recorded Confirmed Type Finasteride [Proscar] 5 mg PO DAILY 02/06/17 01/12/22 History Multivit-Min/FA/Lycopen/Lutein 1 cap PO DAILY 02/06/17 01/12/22 History [Centrum Silver Men Tablet] Tamsulosin [Flomax] 0.4 mg PO HS 02/06/17 01/12/22 History Trospium Chloride [Sanctura] 20 mg PO BID 02/06/17 01/12/22 History Cholecalciferol [Vitamin D3 (25 25 mcg PO DAILY 11/19/17 01/12/22 History Mcg = 1000 Iu)] Omeprazole 40 mg PO DAILY 12/05/18 01/12/22 History Cranberry Fruit Extract [Cranberry] 200 mg PO DAILY #0 08/29/20 01/12/22 History Loratadine [Claritin] 10 mg PO DAILY 08/29/20 01/12/22 History Turmeric Root Extract [Turmeric] 1,000 mg PO BID 08/29/20 01/12/22 History Melatonin 5 mg PO HS PRN tablet 02/14/21 01/12/22 Rx Apixaban [Eliquis] 5 mg PO BID 01/12/22 01/12/22 History Ascorbic Acid [Vitamin C] 500 mg PO DAILY 01/12/22 01/12/22 History Atorvastatin [Lipitor] 80 mg PO DAILY 01/12/22 01/12/22 History Cranberry 450mg 1 tab PO DAILY 01/12/22 01/12/22 History Insulin Glargine,Hum.rec.anlog 35 unit SQ HS 01/12/22 01/12/22 History [Basaglar Kwikpen U-100] Insulin Lispro [humaLOG Kwikpen] 8 unit SQ AC-TID 01/12/22 01/12/22 History Latanoprost/Pf [Latanoprost 0.005% 1 drop BOTH EYES HS 01/12/22 01/12/22 History Eye Drop] Metoprolol Tartrate [Lopressor] 25 mg PO DAILY@1200 01/12/22 01/12/22 History Metoprolol Tartrate [Lopressor] 75 mg PO BID@0900,2100 01/12/22 01/12/22 History Allergies Allergy/AdvReac Type Severity Reaction Status Date / Time codeine Allergy Rash/Hives Verified 01/12/22 13:43 morphine Allergy Rash/Hives Verified 01/12/22 13:43 Physical Exam Vitals: Vital Signs Temp Pulse Pulse Pulse Pulse Pulse Resp 01/14/22 08:00 87 94 100 106 H 98 18 01/14/22 07:00 99 F 94 18 01/14/22 03:46 100.4 F H 100 19 01/13/22 21:24 98.6 F 01/13/22 19:46 18 01/13/22 19:37 102.2 F H 121 H 19 01/13/22 18:45 102.6 F H 01/13/22 14:09 98.2 F 99 18 01/13/22 14:07 98.2 F 100 106 H 98 BP BP BP BP Pulse Ox 01/14/22 08:00 01/14/22 07:00 75/46 97 01/14/22 03:46 96/62 97 01/13/22 21:24 01/13/22 19:46 01/13/22 19:37 101/66 97 01/13/22 18:45 01/13/22 14:09 119/74 98 01/13/22 14:07 116/75 113/72 119/74 Intake and Output 01/13/22 01/14/22 01/14/22 22:59 06:59 14:59 Output Total 350 Balance -350 Output: Urine 350 Other: Voiding Method Toilet Toilet Toilet # Voids 2 3 # Bowel Movements 3 GENERAL DESCRIPTION: Elderly male up in the chair, no distress. No tachypnea or accessory muscle of respiration use. HEENT: Shows Pallor , no scleral icterus. Oral mucous membrane is dry. No pharyngeal erythema or thrush NECK: Trachea central, no thyromegaly. LUNGS: Unlabored breathing. Decreased breath sound at the base. No wheeze or crackle. HEART: S1, S2, regular rate and rhythm. No loud murmur ABDOMEN: Soft, no tenderness , guarding or rigidity, no organomegaly EXTREMITIES: No edema of feet. SKIN: No rash, no masses palpable. NEUROLOGICAL: The patient is awake, alert, oriented x3, mood and affect normal. Results CBC & Chem 7: 01/15/22 06:23 01/15/22 06:23 Labs: Abnormal Lab Results - Last 24 Hours (Table) 01/13/22 01/13/22 01/14/22 Range/Units 17:00 21:13 04:22 WBC 13.4 H (3.8-10.6) k/uL RBC 3.53 L (4.30-5.90) m/uL Hgb 10.6 L (13.0-17.5) gm/dL Hct 33.3 L (39.0-53.0) % Neutrophils # 11.5 H (1.3-7.7) k/uL Lymphocytes # 0.7 L (1.0-4.8) k/uL Sodium (137-145) mmol/L Chloride (98-107) mmol/L Carbon Dioxide (22-30) mmol/L POC Glucose (mg/dL) 158 H 292 H (70-110) mg/dL Calcium (8.4-10.2) mg/dL 01/14/22 01/14/22 01/14/22 Range/Units 04:22 07:26 12:36 WBC (3.8-10.6) k/uL RBC (4.30-5.90) m/uL Hgb (13.0-17.5) gm/dL Hct (39.0-53.0) % Neutrophils # (1.3-7.7) k/uL Lymphocytes # (1.0-4.8) k/uL Sodium 136 L (137-145) mmol/L Chloride 113 H (98-107) mmol/L Carbon Dioxide 17 L (22-30) mmol/L POC Glucose (mg/dL) 169 H 130 H (70-110) mg/dL Calcium 8.0 L (8.4-10.2) mg/dL Assessment and Plan (1) Fever Current Visit: Yes Status: Acute Code(s): R50.9 - FEVER, UNSPECIFIED SNOMED Code(s): 997017266 Plan: 1patient presenting to the hospital with a fall/syncopal episode and has been complaining of pain to the left side of the chest from the fall now with a fever but no obvious localizing signs and symptoms of infection. 2blood culture has been obtained we will obtain a CRP procalcitonin repeat his UA also check influenza and howell PCR. 3we will empirically add Rocephin 1 g daily while awaiting further work-up to be completed's We will follow on clinical condition and cultures to further adjust medication if needed Thank you for this consultation will follow this patient along with you Time with Patient: Greater than 30
[2022-01-15] MEDS: SODIUM CHLORIDE 0.9% 1,000 ML IV SCH ×3 (00:53→22:02)
[2022-01-15] MEDS: ACETAMINOPHEN TAB 325 MG TAB PO PRN ×2 (05:41→21:57)
[2022-01-15 07:27] LABS: Glucose,Whole Blood 123 mg/dL (70-110)
--- NOTE | 2022-01-15 07:49 | XR ---
EXAMINATION TYPE: XR chest 2V DATE OF EXAM: 01/15/2022 7:33 AM COMPARISON: Chest radiographs from 01/12/2022. TECHNIQUE: XR chest 2V Frontal and lateral views of the chest. CLINICAL INDICATION:Male, 71 years old with history of pneumonia; FINDINGS: Lungs/Pleura: There is no evidence of pleural effusion, focal consolidation, or pneumothorax. Left b asilar atelectasis. Pulmonary vascularity: Unremarkable. Heart/mediastinum: Cardiomediastinal silhouette is unremarkable. Left atrial appendage occlusion dev ice is present. Musculoskeletal: No acute osseous pathology. Sternotomy wires are present. IMPRESSION: No acute cardiopulmonary disease/process.
[2022-01-15] MEDS: PANTOPRAZOLE 40 MG TABLET PO SCH (08:35)
[2022-01-15] MEDS: APIXABAN 5 MG TAB PO SCH ×2 (08:35→21:57)
[2022-01-15] MEDS: ASCORBIC ACID 500 MG TAB PO SCH (08:35)
[2022-01-15] MEDS: ATORVASTATIN 80 MG TAB PO SCH (08:35)
[2022-01-15] MEDS: MULTIVITAMINS, THERA 1 EACH TAB PO SCH (08:35)
[2022-01-15] MEDS: TROSPIUM CHLORIDE 20 MG TABLET PO SCH ×2 (08:35→22:02)
[2022-01-15] MEDS: METOPROLOL TARTRATE 50 MG TAB PO SCH ×2 (08:35→21:56)
[2022-01-15] MEDS: CHOLECALCIFEROL 25 MCG (1000 IU) TABLET PO SCH (08:35)
[2022-01-15] MEDS: LIDOCAINE 5% PATCH TOPICAL SCH (08:36)
[2022-01-15] MEDS: LORATADINE 10 MG TAB PO SCH (08:36)
[2022-01-15] MEDS: FINASTERIDE 5 MG TAB PO SCH (08:36)
[2022-01-15] MEDS: INSULIN ASPART (NovoLOG) 100 UNIT/ML VIAL SQ SCH ×3 (08:36→22:03)
[2022-01-15 09:00] LABS: Basophils # (A) 0.04 X 10*3/uL (0.00-0.10); Basophils % (A) 0.2 %; Eosinophils # (A) 0.04 X 10*3/uL (0.04-0.35); Eosinophils % (A) 0.2 %; HCT 31.7 % (39.6-50.0); HGB 9.7 g/dL (13.0-17.0); Immature Grans, Automated 0.7 %; Lymphocytes # (A) 0.78 X 10*3/uL (0.90-5.00); Lymphocytes % (A) 4.7 %; MCH 28.5 pg (27.0-32.0); MCHC 30.6 g/dL (32.0-37.0); MCV 93.2 fL (80.0-97.0); Mean Platelet Volume 13.1 fL (9.5-12.2); Monocytes # (A) 1.29 X 10*3/uL (0.20-1.00); Monocytes % (A) 7.7 %; NRBC Per 100 WBC 0 /100 WBCS (0.0-0.0); Neutrophils # (A) 14.45 X 10*3/uL (1.80-7.70); Neutrophils % (A) 86.5 %; Platelet Count 147 X 10*3/uL (140-440); RDW 15.2 % (11.5-14.5); WBC 16.71 X 10*3/uL (4.50-10.00)
[2022-01-15 11:26] LABS: C Reactive Protein 12.2 mg/dL (0.00-0.80)
[2022-01-15 11:34] LABS: Glucose,Whole Blood 174 mg/dL (70-110)
[2022-01-15 12:02] LABS: African American GFR (CKD) 76.8 (60.0-200.0); Albumin 3.1 g/dL (3.8-4.9); Albumin/Globulin Ratio 1.24 (1.60-3.17); Anion Gap 12.1 mmol/L (10.00-18.00); BUN/Creat Ratio 8.73 Ratio (12.00-20.00); Blood Urea Nitrogen 9.6 mg/dL (9.0-27.0); Calcium 8.3 mg/dL (8.7-10.3); Carbon Dioxide 18.9 mmol/L (20.0-27.5); Globulin 2.5 g/dL (1.6-3.3); Non-African American GFR(CKD) 66.2 (60.0-200.0); Potassium 3.9 mmol/L (3.5-5.5); Total Bilirubin 0.3 mg/dL (0.30-1.20); Total Protein 5.6 g/dL (6.2-8.2)
--- NOTE | 2022-01-15 14:01 | P.PN ---
Subjective Progress Note Date: 01/15/22 Principal diagnosis: Fever Patient is a 71-year-old male with multiple comorbidities presenting to the hospital after the patient apparently did have a fall syncopal episode subsequently the patient to spike fever that prompted this infectious disease consultation. On today's evaluation that is 01/15/2022, the patient did have a low-grade fever of 100.1 last evening however it is afebrile this morning, the patient is breathing comfortably on room air the patient had left-sided chest pain has decreased in intensity denies any nausea no vomiting and abdominal pain no diarrhea Objective - Vital Signs Vital signs: Vital Signs Temp 98.3 F 01/15/22 07:00 Pulse 131 H 01/15/22 07:00 Resp 18 01/15/22 07:00 BP 92/62 01/15/22 07:00 Pulse Ox 97 01/15/22 07:00 FiO2 Intake & Output 01/14/22 01/15/22 01/15/22 18:59 06:59 18:59 Intake Total 118 120 Output Total 200 Balance 118 -200 120 Intake: Oral 118 120 Output: Urine 200 Other: Voiding Method Toilet Toilet Toilet Urinal Urinal Urinal # Voids 1 1 1 - Exam GENERAL DESCRIPTION: An elderly male lying in bed in no distress RESPIRATORY SYSTEM: Unlabored breathing , decreased breath sounds at bases HEART: S1 S2 regular rate and rhythm , ABDOMEN: Soft , no tenderness EXTREMITIES: No edema feet - Labs CBC & Chem 7: 01/15/22 06:23 01/15/22 06:23 Labs: Abnormal Lab Results - Last 24 Hours (Table) 01/14/22 01/14/22 01/14/22 Range/Units 14:44 17:23 20:47 WBC (4.50-10.00) X 10*3/uL RBC (4.40-5.60) X 10*6/uL Hgb (13.0-17.0) g/dL Hct (39.6-50.0) % MCHC (32.0-37.0) g/dL RDW (11.5-14.5) % MPV (9.5-12.2) fL Immature Gran # (0.00-0.04) X 10*3/uL Neutrophils # (1.80-7.70) X 10*3/uL Lymphocytes # (0.90-5.00) X 10*3/uL Monocytes # (0.20-1.00) X 10*3/uL Chloride (96-109) mmol/L Carbon Dioxide (20.0-27.5) mmol/L BUN/Creatinine Ratio (12.00-20.00) Ratio Glucose (70-110) mg/dL POC Glucose (mg/dL) 234 H 180 H (70-110) mg/dL Calcium (8.7-10.3) mg/dL C-Reactive Protein (0.00-0.80) mg/dL Total Protein (6.2-8.2) g/dL Albumin (3.8-4.9) g/dL Albumin/Globulin Ratio (1.60-3.17) g/dL Urine Protein Trace H (Negative) Urine Blood Trace H (Negative) Urine RBC 10 H (0-5) /hpf Urine Bacteria Rare H (None) /hpf Urine Mucus Rare H (None) /hpf 01/15/22 01/15/22 01/15/22 Range/Units 06:23 06:23 07:15 WBC 16.71 H (4.50-10.00) X 10*3/uL RBC 3.40 L (4.40-5.60) X 10*6/uL Hgb 9.7 L (13.0-17.0) g/dL Hct 31.7 L (39.6-50.0) % MCHC 30.6 L (32.0-37.0) g/dL RDW 15.2 H (11.5-14.5) % MPV 13.1 H (9.5-12.2) fL Immature Gran # 0.11 H (0.00-0.04) X 10*3/uL Neutrophils # 14.45 H (1.80-7.70) X 10*3/uL Lymphocytes # 0.78 L (0.90-5.00) X 10*3/uL Monocytes # 1.29 H (0.20-1.00) X 10*3/uL Chloride 110 H (96-109) mmol/L Carbon Dioxide 18.9 L (20.0-27.5) mmol/L BUN/Creatinine Ratio 8.73 L (12.00-20.00) Ratio Glucose 117 H (70-110) mg/dL POC Glucose (mg/dL) 123 H (70-110) mg/dL Calcium 8.3 L (8.7-10.3) mg/dL C-Reactive Protein 12.20 H (0.00-0.80) mg/dL Total Protein 5.6 L (6.2-8.2) g/dL Albumin 3.1 L (3.8-4.9) g/dL Albumin/Globulin Ratio 1.24 L (1.60-3.17) g/dL Urine Protein (Negative) Urine Blood (Negative) Urine RBC (0-5) /hpf Urine Bacteria (None) /hpf Urine Mucus (None) /hpf 01/15/22 Range/Units 11:22 WBC (4.50-10.00) X 10*3/uL RBC (4.40-5.60) X 10*6/uL Hgb (13.0-17.0) g/dL Hct (39.6-50.0) % MCHC (32.0-37.0) g/dL RDW (11.5-14.5) % MPV (9.5-12.2) fL Immature Gran # (0.00-0.04) X 10*3/uL Neutrophils # (1.80-7.70) X 10*3/uL Lymphocytes # (0.90-5.00) X 10*3/uL Monocytes # (0.20-1.00) X 10*3/uL Chloride (96-109) mmol/L Carbon Dioxide (20.0-27.5) mmol/L BUN/Creatinine Ratio (12.00-20.00) Ratio Glucose (70-110) mg/dL POC Glucose (mg/dL) 174 H (70-110) mg/dL Calcium (8.7-10.3) mg/dL C-Reactive Protein (0.00-0.80) mg/dL Total Protein (6.2-8.2) g/dL Albumin (3.8-4.9) g/dL Albumin/Globulin Ratio (1.60-3.17) g/dL Urine Protein (Negative) Urine Blood (Negative) Urine RBC (0-5) /hpf Urine Bacteria (None) /hpf Urine Mucus (None) /hpf Microbiology - Last 24 Hours (Table) 01/13/22 19:51 Blood Culture - Preliminary Blood No Growth after 24 hours Assessment and Plan (1) Fever Current Visit: Yes Status: Acute Code(s): R50.9 - FEVER, UNSPECIFIED SNOMED Code(s): 092813221 Plan: 1patient presenting to the hospital with a fall/syncopal episode and has been complaining of pain to the left side of the chest from the fall now with a fever but no obvious localizing signs and symptoms of infection. 2blood culture has been obtained which are currently pending, chest x-ray this morning did not show any acute cardiopulmonary process, CRP is elevated pro- cultures pending 3-we will obtain a CT of abdominal pelvis to rule out intra-abdominal source and switch antibiotic therapy to Zosyn Time with Patient: Less than 30
[2022-01-15] MEDS: IOPAMIDOL CONTRAST (ORAL USE) VIAL PO PRN ×2 (14:24→15:27)
[2022-01-15] MEDS: PIPERACILLIN-TAZOBACTAM 3.375 GM in SODIUM CHLORIDE 0.9% 100 ML IVPB SCH (16:35)
--- NOTE | 2022-01-15 16:51 | CT ---
EXAMINATION TYPE: CT abdomen pelvis w con DATE OF EXAM: 01/15/2022 COMPARISON: HISTORY: abdominal pain, fever, back pain from fall CT DLP: 939.9 mGycm Automated exposure control for dose reduction was used. CONTRAST: Performed with IV Contrast, patient injected with 100 mL of Isovue 300. Images obtained from the diaphragm to the floor the pelvis with the oral and IV contrast. There are bilateral mild pleural effusions. There is some mild infiltrate or atelectasis at both post erior lung bases. No pericardial effusion. Liver and spleen are intact. Gallbladder is contracted. There is small amount of fluid around the gal lbladder. No evidence of pancreatic mass. The bile ducts are not dilated. There are some enlarged hep atopedal pancreatic lymph nodes in the right upper quadrant. The largest measures 2 cm. There is no adrenal mass. There is 3.2 cm rounded mass on the lateral left kidney. This is an area of cortical cyst on the previous CT scan and likely hemorrhagic cyst. There is 3 cm cortical cyst media l left kidney. Right kidney is intact. No retroperitoneal adenopathy. Abdominal aorta is atheromatous . There is some free fluid in the pelvis. Bladder distends smoothly. There is prostate calcification. No inguinal hernia. There is ileostomy in the right mid abdomen. There is apparent total colectomy. The lumbar vertebrae are normal alignment. Posterior elements are intact. No compression fracture. Ab dominal aorta is atheromatous. Bony pelvis is intact. IMPRESSION: Bilateral pleural effusions and basilar pulmonary infiltrates and atelectasis which are new compared to recent exam. Complex left renal cyst consistent with hemorrhagic cyst that is a change compared to the old exam. There are some enlarged hepatopedal pancreatic lymph nodes in the right upper quadrant which appear n ot significantly different. There is a new small amount of abdominal ascites fluid compared to the old exam.
[2022-01-15 17:45] LABS: Glucose,Whole Blood 98 mg/dL (70-110)
[2022-01-15] MEDS: TAMSULOSIN 0.4 MG CAP.ER.24H PO SCH (21:56)
[2022-01-15] MEDS: LATANOPROST 0.005% OPHTH DROPS 2.5 ML BTL BOTH EYES SCH (21:59)
[2022-01-15] MEDS: INSULIN DETEMIR (LEVEMIR) 100 UNIT/ML SYR SQ SCH (22:03)
[2022-01-15 22:04] LABS: Glucose,Whole Blood 130 mg/dL (70-110)
[2022-01-16] MEDS: PIPERACILLIN-TAZOBACTAM 3.375 GM in SODIUM CHLORIDE 0.9% 100 ML IVPB SCH ×4 (00:17→23:13)
[2022-01-16 08:04] LABS: Glucose,Whole Blood 75 mg/dL (70-110)
[2022-01-16] MEDS: INSULIN ASPART (NovoLOG) 100 UNIT/ML VIAL SQ SCH ×3 (08:05→21:58)
[2022-01-16] MEDS: MULTIVITAMINS, THERA 1 EACH TAB PO SCH (08:10)
[2022-01-16] MEDS: APIXABAN 5 MG TAB PO SCH ×2 (08:10→22:33)
[2022-01-16] MEDS: DULoxetine HCL 30 MG CAPSULE.DR PO SCH (08:10)
[2022-01-16] MEDS: METOPROLOL TARTRATE 50 MG TAB PO SCH ×2 (08:10→22:33)
[2022-01-16] MEDS: LORATADINE 10 MG TAB PO SCH (08:10)
[2022-01-16] MEDS: ASCORBIC ACID 500 MG TAB PO SCH (08:10)
[2022-01-16] MEDS: PANTOPRAZOLE 40 MG TABLET PO SCH (08:10)
[2022-01-16] MEDS: ATORVASTATIN 80 MG TAB PO SCH (08:10)
[2022-01-16] MEDS: FINASTERIDE 5 MG TAB PO SCH (08:10)
[2022-01-16] MEDS: CHOLECALCIFEROL 25 MCG (1000 IU) TABLET PO SCH (08:10)
[2022-01-16] MEDS: LIDOCAINE 5% PATCH TOPICAL SCH (08:11)
[2022-01-16] MEDS: TROSPIUM CHLORIDE 20 MG TABLET PO SCH ×2 (08:11→22:33)
[2022-01-16 09:53] LABS: African American GFR (CKD) 67.7 (60.0-200.0); Albumin 2.8 g/dL (3.8-4.9); Albumin/Globulin Ratio 1.23 (1.60-3.17); Anion Gap 10.5 mmol/L (10.00-18.00); BUN/Creat Ratio 10.41 Ratio (12.00-20.00); Blood Urea Nitrogen 12.7 mg/dL (9.0-27.0); C Reactive Protein 12.3 mg/dL (0.00-0.80); Calcium 8.1 mg/dL (8.7-10.3); Globulin 2.3 g/dL (1.6-3.3); Non-African American GFR(CKD) 58.5 (60.0-200.0); Potassium 4.1 mmol/L (3.5-5.5); Total Bilirubin 0.3 mg/dL (0.30-1.20); Total Protein 5.1 g/dL (6.2-8.2)
[2022-01-16 10:25] LABS: Basophils # (A) 0.03 X 10*3/uL (0.00-0.10); Basophils % (A) 0.3 %; Eosinophils # (A) 0.18 X 10*3/uL (0.04-0.35); Eosinophils % (A) 1.6 %; HCT 29.3 % (39.6-50.0); HGB 8.9 g/dL (13.0-17.0); Immature Grans, Automated 1.2 %; Lymphocytes # (A) 0.92 X 10*3/uL (0.90-5.00); Lymphocytes % (A) 8.2 %; MCH 28.8 pg (27.0-32.0); MCHC 30.4 g/dL (32.0-37.0); MCV 94.8 fL (80.0-97.0); Mean Platelet Volume 13.1 fL (9.5-12.2); Monocytes # (A) 0.86 X 10*3/uL (0.20-1.00); Monocytes % (A) 7.7 %; NRBC Per 100 WBC 0 /100 WBCS (0.0-0.0); Platelet Count 154 X 10*3/uL (140-440); RBC 3.09 X 10*6/uL (4.40-5.60); RDW 15.4 % (11.5-14.5); WBC 11.22 X 10*3/uL (4.50-10.00)
[2022-01-16 11:49] LABS: Glucose,Whole Blood 164 mg/dL (70-110)
[2022-01-16] MEDS: SODIUM CHLORIDE 0.9% 1,000 ML IV SCH ×3 (14:16→22:34)
[2022-01-16 17:14] LABS: Glucose,Whole Blood 182 mg/dL (70-110)
[2022-01-16 21:10] LABS: Glucose,Whole Blood 142 mg/dL (70-110)
[2022-01-16] MEDS: TAMSULOSIN 0.4 MG CAP.ER.24H PO SCH (22:33)
[2022-01-16] MEDS: INSULIN DETEMIR (LEVEMIR) 100 UNIT/ML SYR SQ SCH (22:33)
[2022-01-16] MEDS: LATANOPROST 0.005% OPHTH DROPS 2.5 ML BTL BOTH EYES SCH (22:34)
[2022-01-17] MEDS: ACETAMINOPHEN TAB 325 MG TAB PO PRN (01:44)
[2022-01-17 03:30] LABS: Glucose,Whole Blood 57 mg/dL (70-110)
[2022-01-17 03:47] LABS: Glucose,Whole Blood 83 mg/dL (70-110)
[2022-01-17] MEDS: SODIUM CHLORIDE 0.9% 1,000 ML IV SCH ×3 (05:42→20:46)
[2022-01-17 07:09] LABS: Glucose,Whole Blood 119 mg/dL (70-110)
--- NOTE | 2022-01-17 08:16 | P.PN ---
Subjective Progress Note Date: 01/15/22 Principal diagnosis: Fall/syncope Fever/leukocytosis 71-year-old male with past medical history remarkable for atrial fibrillation on anticoagulation, diabetes, hypertension, colostomy who presents emergency Department complaining of left-sided rib pain/chest pain. Was also complaining of a syncopal versus fall episode last night. Is uncertain what happened last night but per patient's , patient stood up and then fell to the ground. Landed on carpet. Uncertain if he hit his head. Went back to sleep. Does have a history of sleepwalking and is uncertain if this is what caused it. States he does believe he may be dehydrated at this time. Otherwise has been acting normally since the event. Please see did hit his ribs last night as well, as he is having point tenderness over the left inferior ribs in the anterior axillary line. Pain does not radiate. Denies shortness of breath. States the pain is worse with any movement of the thorax or his left arm. Denies any back pain. Denies any abdominal pain, nausea, vomiting. Denies any cough. His no other acute complaint at this time. Presents for further evaluation.Patient states he has had less by mouth intake of water recently, but denies any worsening or increased output from his ostomy site. States his brother dehydration since the ostomy. Denies any melena, bloody stools. Denies constipation. 01/15/2022 patient presenting to the hospital with a fall/syncopal episode and has been complaining of pain to the left side of the chest from the fall now with a fever but no obvious localizing signs and symptoms of infection. blood culture has been obtained which are currently pending, chest x-ray this morning did not show any acute cardiopulmonary process, CRP is elevated pro- cultures pending we will obtain a CT of abdominal pelvis to rule out intra-abdominal source and switch antibiotic therapy to Zosyn Objective - Vital Signs Vital signs: Vital Signs Temp 98.3 F 01/15/22 07:00 Pulse 131 H 01/15/22 07:00 Resp 18 01/15/22 07:00 BP 92/62 01/15/22 07:00 Pulse Ox 97 01/15/22 07:00 FiO2 Intake & Output 01/14/22 01/15/22 01/15/22 18:59 06:59 18:59 Intake Total 118 120 Output Total 200 Balance 118 -200 120 Intake: Oral 118 120 Output: Urine 200 Other: Voiding Method Toilet Toilet Toilet Urinal Urinal Urinal # Voids 1 1 1 - Exam PHYSICAL EXAMINATION: GENERAL: The patient is alert and oriented x3, not in any acute distress. Well developed, well nourished. HEENT: Pupils are round and equally reacting to light. EOMI. No scleral icterus. No conjunctival pallor. Normocephalic, atraumatic. No pharyngeal erythema. No thyromegaly. CARDIOVASCULAR: S1 and S2 present. No murmurs, rubs, or gallops. PULMONARY: Chest is clear to auscultation, no wheezing or crackles. ABDOMEN: Soft, nontender, nondistended, normoactive bowel sounds. No palpable organomegaly. MUSCULOSKELETAL: No joint swelling or deformity. EXTREMITIES: No cyanosis, clubbing, or pedal edema. NEUROLOGICAL: Gross neurological examination did not reveal any focal deficits. SKIN: No rashes. - Labs CBC & Chem 7: 01/16/22 03:43 01/16/22 03:43 Labs: Abnormal Lab Results - Last 24 Hours (Table) 01/14/22 01/14/22 01/14/22 Range/Units 12:36 14:44 17:23 WBC (4.50-10.00) X 10*3/uL RBC (4.40-5.60) X 10*6/uL Hgb (13.0-17.0) g/dL Hct (39.6-50.0) % MCHC (32.0-37.0) g/dL RDW (11.5-14.5) % MPV (9.5-12.2) fL Immature Gran # (0.00-0.04) X 10*3/uL Neutrophils # (1.80-7.70) X 10*3/uL Lymphocytes # (0.90-5.00) X 10*3/uL Monocytes # (0.20-1.00) X 10*3/uL Chloride (96-109) mmol/L Carbon Dioxide (20.0-27.5) mmol/L BUN/Creatinine Ratio (12.00-20.00) Ratio Glucose (70-110) mg/dL POC Glucose (mg/dL) 130 H 234 H (70-110) mg/dL Calcium (8.7-10.3) mg/dL C-Reactive Protein (0.00-0.80) mg/dL Total Protein (6.2-8.2) g/dL Albumin (3.8-4.9) g/dL Albumin/Globulin Ratio (1.60-3.17) g/dL Urine Protein Trace H (Negative) Urine Blood Trace H (Negative) Urine RBC 10 H (0-5) /hpf Urine Bacteria Rare H (None) /hpf Urine Mucus Rare H (None) /hpf 01/14/22 01/15/22 01/15/22 Range/Units 20:47 06:23 06:23 WBC 16.71 H (4.50-10.00) X 10*3/uL RBC 3.40 L (4.40-5.60) X 10*6/uL Hgb 9.7 L (13.0-17.0) g/dL Hct 31.7 L (39.6-50.0) % MCHC 30.6 L (32.0-37.0) g/dL RDW 15.2 H (11.5-14.5) % MPV 13.1 H (9.5-12.2) fL Immature Gran # 0.11 H (0.00-0.04) X 10*3/uL Neutrophils # 14.45 H (1.80-7.70) X 10*3/uL Lymphocytes # 0.78 L (0.90-5.00) X 10*3/uL Monocytes # 1.29 H (0.20-1.00) X 10*3/uL Chloride 110 H (96-109) mmol/L Carbon Dioxide 18.9 L (20.0-27.5) mmol/L BUN/Creatinine Ratio 8.73 L (12.00-20.00) Ratio Glucose 117 H (70-110) mg/dL POC Glucose (mg/dL) 180 H (70-110) mg/dL Calcium 8.3 L (8.7-10.3) mg/dL C-Reactive Protein 12.20 H (0.00-0.80) mg/dL Total Protein 5.6 L (6.2-8.2) g/dL Albumin 3.1 L (3.8-4.9) g/dL Albumin/Globulin Ratio 1.24 L (1.60-3.17) g/dL Urine Protein (Negative) Urine Blood (Negative) Urine RBC (0-5) /hpf Urine Bacteria (None) /hpf Urine Mucus (None) /hpf 01/15/22 01/15/22 Range/Units 07:15 11:22 WBC (4.50-10.00) X 10*3/uL RBC (4.40-5.60) X 10*6/uL Hgb (13.0-17.0) g/dL Hct (39.6-50.0) % MCHC (32.0-37.0) g/dL RDW (11.5-14.5) % MPV (9.5-12.2) fL Immature Gran # (0.00-0.04) X 10*3/uL Neutrophils # (1.80-7.70) X 10*3/uL Lymphocytes # (0.90-5.00) X 10*3/uL Monocytes # (0.20-1.00) X 10*3/uL Chloride (96-109) mmol/L Carbon Dioxide (20.0-27.5) mmol/L BUN/Creatinine Ratio (12.00-20.00) Ratio Glucose (70-110) mg/dL POC Glucose (mg/dL) 123 H 174 H (70-110) mg/dL Calcium (8.7-10.3) mg/dL C-Reactive Protein (0.00-0.80) mg/dL Total Protein (6.2-8.2) g/dL Albumin (3.8-4.9) g/dL Albumin/Globulin Ratio (1.60-3.17) g/dL Urine Protein (Negative) Urine Blood (Negative) Urine RBC (0-5) /hpf Urine Bacteria (None) /hpf Urine Mucus (None) /hpf Microbiology - Last 24 Hours (Table) 01/13/22 19:51 Blood Culture - Preliminary Blood No Growth after 24 hours Assessment and Plan Assessment: Syncope, likely secondary to hypotension along with dehydration Chest pain, acute coronary syndrome ruled out, likely secondary to fall Coronary artery disease with previous CABG 4 Paroxysmal atrial flutter Hypertension Hyperlipidemia Diabetes Ulcerative colitis with history of ileostomy PLAN: No need to obtain echocardiogram per Dr. Clark Resume home cardiac medications Decrease metoprolol to 50mg BID Monitor blood pressure Patient instructed to change positions slowly at home when he is getting out of bed to a standing position
[2022-01-17] MEDS: MULTIVITAMINS, THERA 1 EACH TAB PO SCH (08:20)
[2022-01-17] MEDS: DULoxetine HCL 30 MG CAPSULE.DR PO SCH (08:20)
[2022-01-17] MEDS: TROSPIUM CHLORIDE 20 MG TABLET PO SCH ×2 (08:20→20:45)
[2022-01-17] MEDS: ATORVASTATIN 80 MG TAB PO SCH (08:21)
[2022-01-17] MEDS: PANTOPRAZOLE 40 MG TABLET PO SCH (08:21)
[2022-01-17] MEDS: FINASTERIDE 5 MG TAB PO SCH (08:21)
[2022-01-17] MEDS: CHOLECALCIFEROL 25 MCG (1000 IU) TABLET PO SCH (08:21)
[2022-01-17] MEDS: PIPERACILLIN-TAZOBACTAM 3.375 GM in SODIUM CHLORIDE 0.9% 100 ML IVPB SCH ×2 (08:21→17:32)
[2022-01-17] MEDS: ASCORBIC ACID 500 MG TAB PO SCH (08:21)
[2022-01-17] MEDS: LORATADINE 10 MG TAB PO SCH (08:21)
[2022-01-17] MEDS: APIXABAN 5 MG TAB PO SCH ×2 (08:21→20:45)
[2022-01-17] MEDS: INSULIN ASPART (NovoLOG) 100 UNIT/ML VIAL SQ SCH ×3 (08:22→20:44)
[2022-01-17] MEDS: LIDOCAINE 5% PATCH TOPICAL SCH (08:22)
--- NOTE | 2022-01-17 08:22 | P.PN ---
Subjective Progress Note Date: 01/16/22 Principal diagnosis: Fall/syncope Fever/leukocytosis 71-year-old male with past medical history remarkable for atrial fibrillation on anticoagulation, diabetes, hypertension, colostomy who presents emergency Department complaining of left-sided rib pain/chest pain. Was also complaining of a syncopal versus fall episode last night. Is uncertain what happened last night but per patient's , patient stood up and then fell to the ground. Landed on carpet. Uncertain if he hit his head. Went back to sleep. Does have a history of sleepwalking and is uncertain if this is what caused it. States he does believe he may be dehydrated at this time. Otherwise has been acting normally since the event. Please see did hit his ribs last night as well, as he is having point tenderness over the left inferior ribs in the anterior axillary line. Pain does not radiate. Denies shortness of breath. States the pain is worse with any movement of the thorax or his left arm. Denies any back pain. Denies any abdominal pain, nausea, vomiting. Denies any cough. His no other acute complaint at this time. Presents for further evaluation.Patient states he has had less by mouth intake of water recently, but denies any worsening or increased output from his ostomy site. States his brother dehydration since the ostomy. Denies any melena, bloody stools. Denies constipation. 01/15/2022 patient presenting to the hospital with a fall/syncopal episode and has been complaining of pain to the left side of the chest from the fall now with a fever but no obvious localizing signs and symptoms of infection. blood culture has been obtained which are currently pending, chest x-ray this morning did not show any acute cardiopulmonary process, CRP is elevated pro- cultures pending we will obtain a CT of abdominal pelvis to rule out intra-abdominal source and switch antibiotic therapy to Zosyn 01/16/2022 Patient is seen and evaluated sitting up in the bedside chair; denies any complaints of chest pain, shortness of breath, fever or chills Vital signs are reviewed; patient remains afebrile with a T-max of 99.1 Blood work reveals an improved WBC of 11.2 from 16.7 yesterday; patient remains on IV Zosyn per ID recommendations CT of abdomen reveals bilateral pleural effusions with basilar pulmonary infiltrates and atelectasis; complex left renal cyst which is consistent with hemorrhagic cyst; some enlarged hepatopedal and pancreatic lymph nodes with small ascites We will consult urology for follow-up on renal cyst; obtain abdominal ultrasound to evaluate ascites Objective - Vital Signs Vital signs: Vital Signs Temp 97.8 F 01/16/22 07:00 Pulse 60 01/16/22 07:00 Resp 18 01/16/22 08:00 BP 98/66 01/16/22 07:00 Pulse Ox 96 01/16/22 07:00 FiO2 Intake & Output 01/15/22 01/16/22 01/16/22 18:59 06:59 18:59 Intake Total 240 240 Balance 240 240 Intake: Oral 240 240 Other: Voiding Method Toilet Toilet Toilet Urinal Urinal Urinal # Voids 3 2 - Labs CBC & Chem 7: 01/16/22 03:43 01/16/22 03:43 Labs: Abnormal Lab Results - Last 24 Hours (Table) 01/15/22 01/16/22 01/16/22 Range/Units 22:02 03:43 03:43 WBC 11.22 H (4.50-10.00) X 10*3/uL RBC 3.09 L (4.40-5.60) X 10*6/uL Hgb 8.9 L (13.0-17.0) g/dL Hct 29.3 L (39.6-50.0) % MCHC 30.4 L (32.0-37.0) g/dL RDW 15.4 H (11.5-14.5) % MPV 13.1 H (9.5-12.2) fL Immature Gran # 0.13 H (0.00-0.04) X 10*3/uL Neutrophils # 9.10 H (1.80-7.70) X 10*3/uL Chloride 111 H (96-109) mmol/L Carbon Dioxide 19.0 L (20.0-27.5) mmol/L Est GFR (CKD-EPI)NonAf 58.5 L (60.0-200.0) BUN/Creatinine Ratio 10.41 L (12.00-20.00) Ratio POC Glucose (mg/dL) 130 H (70-110) mg/dL Calcium 8.1 L (8.7-10.3) mg/dL C-Reactive Protein 12.30 H (0.00-0.80) mg/dL Total Protein 5.1 L (6.2-8.2) g/dL Albumin 2.8 L (3.8-4.9) g/dL Albumin/Globulin Ratio 1.23 L (1.60-3.17) g/dL 01/16/22 Range/Units 11:46 WBC (4.50-10.00) X 10*3/uL RBC (4.40-5.60) X 10*6/uL Hgb (13.0-17.0) g/dL Hct (39.6-50.0) % MCHC (32.0-37.0) g/dL RDW (11.5-14.5) % MPV (9.5-12.2) fL Immature Gran # (0.00-0.04) X 10*3/uL Neutrophils # (1.80-7.70) X 10*3/uL Chloride (96-109) mmol/L Carbon Dioxide (20.0-27.5) mmol/L Est GFR (CKD-EPI)NonAf (60.0-200.0) BUN/Creatinine Ratio (12.00-20.00) Ratio POC Glucose (mg/dL) 164 H (70-110) mg/dL Calcium (8.7-10.3) mg/dL C-Reactive Protein (0.00-0.80) mg/dL Total Protein (6.2-8.2) g/dL Albumin (3.8-4.9) g/dL Albumin/Globulin Ratio (1.60-3.17) g/dL Microbiology - Last 24 Hours (Table) 01/13/22 19:51 Blood Culture - Preliminary Blood No Growth after 48 hours
--- NOTE | 2022-01-17 08:23 | P.PN ---
Subjective Progress Note Date: 01/16/22 Principal diagnosis: Fever Patient is a 71-year-old male with multiple comorbidities presenting to the hospital after the patient apparently did have a fall syncopal episode subsequently the patient to spike fever that prompted this infectious disease consultation. On today's evaluation that is 01/16/2022, the patient is afebrile this morning, the patient is breathing comfortably on room air , the patient had left-sided chest pain has decreased in intensity, the patient denies any nausea no vomiting and abdominal pain no diarrhea Objective - Vital Signs Vital signs: Vital Signs Temp 97.8 F 01/16/22 07:00 Pulse 60 01/16/22 07:00 Resp 18 01/16/22 08:00 BP 98/66 01/16/22 07:00 Pulse Ox 96 01/16/22 07:00 FiO2 Intake & Output 01/15/22 01/16/22 01/16/22 18:59 06:59 18:59 Intake Total 240 240 Balance 240 240 Intake: Oral 240 240 Other: Voiding Method Toilet Toilet Toilet Urinal Urinal Urinal # Voids 3 2 1 - Exam GENERAL DESCRIPTION: An elderly male lying in bed in no distress RESPIRATORY SYSTEM: Unlabored breathing , decreased breath sounds at bases HEART: S1 S2 regular rate and rhythm , ABDOMEN: Soft , no tenderness EXTREMITIES: No edema feet - Labs CBC & Chem 7: 01/16/22 03:43 01/16/22 03:43 Labs: Abnormal Lab Results - Last 24 Hours (Table) 01/15/22 01/16/22 01/16/22 Range/Units 22:02 03:43 03:43 WBC 11.22 H (4.50-10.00) X 10*3/uL RBC 3.09 L (4.40-5.60) X 10*6/uL Hgb 8.9 L (13.0-17.0) g/dL Hct 29.3 L (39.6-50.0) % MCHC 30.4 L (32.0-37.0) g/dL RDW 15.4 H (11.5-14.5) % MPV 13.1 H (9.5-12.2) fL Immature Gran # 0.13 H (0.00-0.04) X 10*3/uL Neutrophils # 9.10 H (1.80-7.70) X 10*3/uL Chloride 111 H (96-109) mmol/L Carbon Dioxide 19.0 L (20.0-27.5) mmol/L Est GFR (CKD-EPI)NonAf 58.5 L (60.0-200.0) BUN/Creatinine Ratio 10.41 L (12.00-20.00) Ratio POC Glucose (mg/dL) 130 H (70-110) mg/dL Calcium 8.1 L (8.7-10.3) mg/dL C-Reactive Protein 12.30 H (0.00-0.80) mg/dL Total Protein 5.1 L (6.2-8.2) g/dL Albumin 2.8 L (3.8-4.9) g/dL Albumin/Globulin Ratio 1.23 L (1.60-3.17) g/dL 01/16/22 Range/Units 11:46 WBC (4.50-10.00) X 10*3/uL RBC (4.40-5.60) X 10*6/uL Hgb (13.0-17.0) g/dL Hct (39.6-50.0) % MCHC (32.0-37.0) g/dL RDW (11.5-14.5) % MPV (9.5-12.2) fL Immature Gran # (0.00-0.04) X 10*3/uL Neutrophils # (1.80-7.70) X 10*3/uL Chloride (96-109) mmol/L Carbon Dioxide (20.0-27.5) mmol/L Est GFR (CKD-EPI)NonAf (60.0-200.0) BUN/Creatinine Ratio (12.00-20.00) Ratio POC Glucose (mg/dL) 164 H (70-110) mg/dL Calcium (8.7-10.3) mg/dL C-Reactive Protein (0.00-0.80) mg/dL Total Protein (6.2-8.2) g/dL Albumin (3.8-4.9) g/dL Albumin/Globulin Ratio (1.60-3.17) g/dL Microbiology - Last 24 Hours (Table) 01/13/22 19:51 Blood Culture - Preliminary Blood No Growth after 48 hours Assessment and Plan (1) Fever Current Visit: Yes Status: Acute Code(s): R50.9 - FEVER, UNSPECIFIED SNOMED Code(s): 557514842 Plan: 1patient presenting to the hospital with a fall/syncopal episode and has been complaining of pain to the left side of the chest from the fall now with a fever but no obvious localizing signs and symptoms of infection. 2blood culture has been obtained which are currently pending, chest x-ray did not show any acute cardiopulmonary process, 3-patient did have CT of abdominal pelvis concerning for possible less renal hemorrhagic cyst may be responsible for this fever CT will be reviewed with the radiologist continue with the Juan Atnonio while waiting for the culture finalized Time with Patient: Less than 30
[2022-01-17] MEDS: METOPROLOL TARTRATE 50 MG TAB PO SCH ×2 (09:17→20:45)
[2022-01-17 10:22] LABS: ALT 50 U/L (4-49); AST 63 U/L (17-59); African American GFR (CKD) 78 (>60 ml/min/1.73 sqM); Albumin 2.6 g/dL (3.5-5.0); Alkaline Phosphatase 154 U/L (38-126); Anion Gap 5 mmol/L; Bilirubin,Unconjugated 0.1 mg/dL (0.0-1.1); Blood Urea Nitrogen 12 mg/dL (9-20); Calcium 7.7 mg/dL (8.4-10.2); Carbon Dioxide 20 mmol/L (22-30); Chloride 110 mmol/L (98-107); Globulin 2.6 g/dL; Glucose 176 mg/dL (74-99); Non-African American GFR(CKD) 67 (>60 ml/min/1.73 sqM); Potassium 3.8 mmol/L (3.5-5.1); Sodium 135 mmol/L (137-145); Total Bilirubin 0.3 mg/dL (0.2-1.3); Total Protein 5.2 g/dL (6.3-8.2)
[2022-01-17 10:37] LABS: Basophils % (A) 0 %; Eosinophils # (A) 0.1 k/uL (0-0.7); Eosinophils % (A) 2 %; HCT 29.9 % (39.0-53.0); HGB 9.5 gm/dL (13.0-17.5); Hypochromasia Slight; Lymphocytes # (A) 0.6 k/uL (1.0-4.8); Lymphocytes % (A) 8 %; MCH 30.2 pg (25.0-35.0); MCHC 31.9 g/dL (31.0-37.0); MCV 94.7 fL (80.0-100.0); Mean Platelet Volume 10.5; Monocytes # (A) 0.5 k/uL (0-1.0); Monocytes % (A) 7 %; Neutrophils # (A) 6.3 k/uL (1.3-7.7); Neutrophils % (A) 81 %; Platelet Count 171 k/uL (150-450); RBC 3.15 m/uL (4.30-5.90); RDW 15.1 % (11.5-15.5); WBC 7.7 k/uL (3.8-10.6)
[2022-01-17 11:40] LABS: Glucose,Whole Blood 222 mg/dL (70-110)
--- NOTE | 2022-01-17 12:38 | US ---
EXAMINATION TYPE: US abdomen limited DATE OF EXAM: 01/17/2022 COMPARISON: CT CLINICAL HISTORY: Ascites. Ascites check. Scanned abdomen to check for ascites. Small amount of fluid seen in LUQ and LLQ. IMPRESSION: 1. Small amount of ascites present on the left within the abdomen.
--- NOTE | 2022-01-17 15:31 | P.PN ---
Subjective Progress Note Date: 01/17/22 Principal diagnosis: Fall/syncope Fever/leukocytosis 71-year-old male with past medical history remarkable for atrial fibrillation on anticoagulation, diabetes, hypertension, colostomy who presents emergency Department complaining of left-sided rib pain/chest pain. Was also complaining of a syncopal versus fall episode last night. Is uncertain what happened last night but per patient's , patient stood up and then fell to the ground. Landed on carpet. Uncertain if he hit his head. Went back to sleep. Does have a history of sleepwalking and is uncertain if this is what caused it. States he does believe he may be dehydrated at this time. Otherwise has been acting normally since the event. Please see did hit his ribs last night as well, as he is having point tenderness over the left inferior ribs in the anterior axillary line. Pain does not radiate. Denies shortness of breath. States the pain is worse with any movement of the thorax or his left arm. Denies any back pain. Denies any abdominal pain, nausea, vomiting. Denies any cough. His no other acute complaint at this time. Presents for further evaluation.Patient states he has had less by mouth intake of water recently, but denies any worsening or increased output from his ostomy site. States his brother dehydration since the ostomy. Denies any melena, bloody stools. Denies constipation. 01/15/2022 patient presenting to the hospital with a fall/syncopal episode and has been complaining of pain to the left side of the chest from the fall now with a fever but no obvious localizing signs and symptoms of infection. blood culture has been obtained which are currently pending, chest x-ray this morning did not show any acute cardiopulmonary process, CRP is elevated pro- cultures pending we will obtain a CT of abdominal pelvis to rule out intra-abdominal source and switch antibiotic therapy to Zosyn 01/16/2022 Patient is seen and evaluated sitting up in the bedside chair; denies any complaints of chest pain, shortness of breath, fever or chills Vital signs are reviewed; patient remains afebrile with a T-max of 99.1 Blood work reveals an improved WBC of 11.2 from 16.7 yesterday; patient remains on IV Zosyn per ID recommendations CT of abdomen reveals bilateral pleural effusions with basilar pulmonary infiltrates and atelectasis; complex left renal cyst which is consistent with hemorrhagic cyst; some enlarged hepatopedal and pancreatic lymph nodes with small ascites We will consult urology for follow-up on renal cyst; obtain abdominal ultrasound to evaluate ascites 01/17/2022 Patient is seen and evaluated with at bedside; denying any specific complaints; RESTING and results were discussed with patient and family and all questions answered to their satisfaction Vital signs are reviewed; patient remains afebrile; lab review reveals a WBC of 7.7, hemoglobin of 9.5 and platelet count of 171, sodium 135, potassium 3.8 BUN/creatinine of 12/1.09 CT of the abdomen and results and presence of complex left renal cyst consistent with hemorrhagic cyst was discussed with patient and ; urology has been consulted Abdominal ultrasound is ordered to evaluate ascites with plans for possible diagnostic paracentesis Patient is eager to be discharged; discussed with ID via secure texting; patient not cleared for discharge at this point Objective - Vital Signs Vital signs: Vital Signs Temp 97.9 F 01/17/22 07:00 Pulse 90 01/17/22 07:00 Resp 18 01/17/22 07:00 BP 96/60 01/17/22 07:00 Pulse Ox 96 01/17/22 07:00 FiO2 Intake & Output 01/16/22 01/17/22 01/17/22 18:59 06:59 18:59 Intake Total 360 Output Total 400 Balance 360 -400 Intake: Oral 360 Output: Urine 400 Other: Voiding Method Toilet Toilet Urinal Urinal # Voids 1 3 - Exam PHYSICAL EXAMINATION: GENERAL: The patient is alert and oriented x3, not in any acute distress. Well developed, well nourished. HEENT: Pupils are round and equally reacting to light. EOMI. No scleral icterus. No conjunctival pallor. Normocephalic, atraumatic. No pharyngeal erythema. No thyromegaly. CARDIOVASCULAR: S1 and S2 present. No murmurs, rubs, or gallops. PULMONARY: Chest is clear to auscultation, no wheezing or crackles. ABDOMEN: Soft, nontender, nondistended, normoactive bowel sounds. No palpable organomegaly. MUSCULOSKELETAL: No joint swelling or deformity. EXTREMITIES: No cyanosis, clubbing, or pedal edema. NEUROLOGICAL: Gross neurological examination did not reveal any focal deficits. SKIN: No rashes. - Labs CBC & Chem 7: 01/17/22 09:26 01/17/22 09:26 Labs: Abnormal Lab Results - Last 24 Hours (Table) 01/16/22 01/16/22 01/16/22 Range/Units 03:43 03:43 11:46 WBC 11.22 H (4.50-10.00) X 10*3/uL RBC 3.09 L (4.40-5.60) X 10*6/uL Hgb 8.9 L (13.0-17.0) g/dL Hct 29.3 L (39.6-50.0) % MCHC 30.4 L (32.0-37.0) g/dL RDW 15.4 H (11.5-14.5) % MPV 13.1 H (9.5-12.2) fL Immature Gran # 0.13 H (0.00-0.04) X 10*3/uL Neutrophils # 9.10 H (1.80-7.70) X 10*3/uL Chloride 111 H (96-109) mmol/L Carbon Dioxide 19.0 L (20.0-27.5) mmol/L Est GFR (CKD-EPI)NonAf 58.5 L (60.0-200.0) BUN/Creatinine Ratio 10.41 L (12.00-20.00) Ratio POC Glucose (mg/dL) 164 H (70-110) mg/dL Calcium 8.1 L (8.7-10.3) mg/dL C-Reactive Protein 12.30 H (0.00-0.80) mg/dL Total Protein 5.1 L (6.2-8.2) g/dL Albumin 2.8 L (3.8-4.9) g/dL Albumin/Globulin Ratio 1.23 L (1.60-3.17) g/dL 01/16/22 01/16/22 01/17/22 Range/Units 17:06 21:08 03:28 WBC (4.50-10.00) X 10*3/uL RBC (4.40-5.60) X 10*6/uL Hgb (13.0-17.0) g/dL Hct (39.6-50.0) % MCHC (32.0-37.0) g/dL RDW (11.5-14.5) % MPV (9.5-12.2) fL Immature Gran # (0.00-0.04) X 10*3/uL Neutrophils # (1.80-7.70) X 10*3/uL Chloride (96-109) mmol/L Carbon Dioxide (20.0-27.5) mmol/L Est GFR (CKD-EPI)NonAf (60.0-200.0) BUN/Creatinine Ratio (12.00-20.00) Ratio POC Glucose (mg/dL) 182 H 142 H 57 L (70-110) mg/dL Calcium (8.7-10.3) mg/dL C-Reactive Protein (0.00-0.80) mg/dL Total Protein (6.2-8.2) g/dL Albumin (3.8-4.9) g/dL Albumin/Globulin Ratio (1.60-3.17) g/dL 01/17/22 Range/Units 07:05 WBC (4.50-10.00) X 10*3/uL RBC (4.40-5.60) X 10*6/uL Hgb (13.0-17.0) g/dL Hct (39.6-50.0) % MCHC (32.0-37.0) g/dL RDW (11.5-14.5) % MPV (9.5-12.2) fL Immature Gran # (0.00-0.04) X 10*3/uL Neutrophils # (1.80-7.70) X 10*3/uL Chloride (96-109) mmol/L Carbon Dioxide (20.0-27.5) mmol/L Est GFR (CKD-EPI)NonAf (60.0-200.0) BUN/Creatinine Ratio (12.00-20.00) Ratio POC Glucose (mg/dL) 119 H (70-110) mg/dL Calcium (8.7-10.3) mg/dL C-Reactive Protein (0.00-0.80) mg/dL Total Protein (6.2-8.2) g/dL Albumin (3.8-4.9) g/dL Albumin/Globulin Ratio (1.60-3.17) g/dL Microbiology - Last 24 Hours (Table) 01/13/22 19:51 Blood Culture - Preliminary Blood No Growth after 72 hours Assessment and Plan Assessment: Syncope, likely secondary to hypotension along with dehydration Chest pain, acute coronary syndrome ruled out, likely secondary to fall Coronary artery disease with previous CABG 4 Paroxysmal atrial flutter Hypertension Hyperlipidemia Diabetes Ulcerative colitis with history of ileostomy PLAN: No need to obtain echocardiogram per Dr. Clark Resume home cardiac medications Decrease metoprolol to 50mg BID Monitor blood pressure Patient instructed to change positions slowly at home when he is getting out of bed to a standing position
[2022-01-17 16:32] LABS: Glucose,Whole Blood 192 mg/dL (70-110)
[2022-01-17 19:59] LABS: Glucose,Whole Blood 219 mg/dL (70-110)
[2022-01-17] MEDS: TAMSULOSIN 0.4 MG CAP.ER.24H PO SCH (20:45)
[2022-01-17] MEDS: LATANOPROST 0.005% OPHTH DROPS 2.5 ML BTL BOTH EYES SCH (20:45)
[2022-01-18] MEDS: PIPERACILLIN-TAZOBACTAM 3.375 GM in SODIUM CHLORIDE 0.9% 100 ML IVPB SCH ×2 (00:30→08:56)
[2022-01-18] MEDS: INSULIN DETEMIR (LEVEMIR) 100 UNIT/ML SYR SQ SCH (00:30)
[2022-01-18] MEDS: SODIUM CHLORIDE 0.9% 1,000 ML IV SCH ×2 (06:10→08:59)
[2022-01-18 07:28] LABS: Glucose,Whole Blood 84 mg/dL (70-110)
[2022-01-18 07:47] VITALS: BP 112/69; PULSE 77; RESP 16; TEMP 98.5
[2022-01-18] MEDS: DULoxetine HCL 30 MG CAPSULE.DR PO SCH (08:57)
[2022-01-18] MEDS: ATORVASTATIN 80 MG TAB PO SCH (08:58)
[2022-01-18] MEDS: LORATADINE 10 MG TAB PO SCH (08:59)
[2022-01-18] MEDS: METOPROLOL TARTRATE 50 MG TAB PO SCH (08:59)
[2022-01-18] MEDS: PANTOPRAZOLE 40 MG TABLET PO SCH (08:59)
[2022-01-18] MEDS: MULTIVITAMINS, THERA 1 EACH TAB PO SCH (08:59)
[2022-01-18] MEDS: FINASTERIDE 5 MG TAB PO SCH (08:59)
[2022-01-18] MEDS: TROSPIUM CHLORIDE 20 MG TABLET PO SCH (08:59)
[2022-01-18] MEDS: CHOLECALCIFEROL 25 MCG (1000 IU) TABLET PO SCH (08:59)
[2022-01-18] MEDS: APIXABAN 5 MG TAB PO SCH (08:59)
[2022-01-18] MEDS: ASCORBIC ACID 500 MG TAB PO SCH (08:59)
[2022-01-18] MEDS: INSULIN ASPART (NovoLOG) 100 UNIT/ML VIAL SQ SCH (09:22)
[2022-01-18] MEDS: LIDOCAINE 5% PATCH TOPICAL SCH (09:22)
--- NOTE | 2022-01-18 10:07 | P.GSCN ---
History of Present Illness Consult date: 01/18/22 Reason for Consult: left renal cyst History of present illness: this is a 71-year-old male admitted to the hospital following a fall. Urology i s consulted for a finding of a left renal cyst. Of note he has history of kidney stones require ureteroscopy in the past. Review of imaging cyst has been present since 2018 at that time it measured 2.[address] scan yesterday showed it to measure approximately 3.2 cm. Of note the consistency of cyst policy change clerk time it does appear more hyperdense on imaging today compared to 2018 and 2020. Denies any flank pain or voiding issues. No known family history of renal cell carcinoma. Review of Systems - Constitutional Denies fever, Denies weight loss - Cardiovascular Denies chest pain, Denies shortness of breath - Respiratory Denies cough, Denies 7 - Gastrointestinal Reports as per HPI - Genitourinary Denies dysuria, Denies hematuria - Neurological Denies headaches, Denies syncope - Hematologic/Lymphatic Denies easy bleeding, Denies easy bruising 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, IDDM type II, ulcerative colitis/had J pouch and later ileostomy, chronic diarrhea/dehydration, ileal polyps, recurrent nephrolithiasis, pyelonephritis, BPH, ANGEL occasionally wears Cpap, chronic low iron, bilaterally [place] CHIN/aides, takes eye drops to prevent glaucoma History of Any Multi-Drug Resistant Organisms: None Reported Past Surgical History: Appendectomy, Bowel Resection, Coronary Bypass/CABG, Heart Catheterization, Hernia Repair, Joint Replacement Additional Past Surgical History / Comment(s): 2020 CABG with 4 vessel bypass, colectomy with ileostomy, previous J pouch, colonoscopies, EGD, abdominal hernia/mesh, lithotripsy with R ureteral stent, L partial knee arthroplasty, bilateral cataract removal/lens implants, L eye surgery for detached retina. Past Anesthesia/Blood Transfusion Reactions: No Reported Reaction Additional Past Anesthesia/Blood Transfusion Reaction / Comm: PATIENT HAD SURGERY FOR LEFT EYE DETACHED RETINA AND DEVELOPED GAS BUBBLE IN L EYE. HE WAS INSTRUCTED TO NOT RECEIVE NITROUS OXIDE OR RIDE IN A PLANE UNTIL GAS BUBBLE IS GONE. Smoking Status: Former smoker - Past Family History Mother Family Medical History: Cancer, Diabetes Mellitus Additional Family Medical History / Comment(s): Mother at age 84 from [place] Father Additional Family Medical History / Comment(s): Father is with history of coronary artery disease. Brother(s) Family Medical History: Coronary Artery Disease (CAD), Vascular Disorder Additional Family Medical History / Comment(s): Patient has 4 brothers. Two at the age of 44 from coronary artery disease with history of tobacco use and alcohol dependence. One from aneurysm in the chest. Medications and Allergies Home Medications Medication Instructions Recorded Confirmed Type Finasteride [Proscar] 5 mg PO DAILY 02/06/17 01/12/22 History Multivit-Min/FA/Lycopen/Lutein 1 cap PO DAILY 02/06/17 01/12/22 History [Centrum Silver Men Tablet] Tamsulosin [Flomax] 0.4 mg PO HS 02/06/17 01/12/22 History Trospium Chloride [Sanctura] 20 mg PO BID 02/06/17 01/12/22 History Cholecalciferol [Vitamin D3 (25 25 mcg PO DAILY 11/19/17 01/12/22 History Mcg = 1000 Iu)] Omeprazole 40 mg PO DAILY 12/05/18 01/12/22 History Cranberry Fruit Extract [Cranberry] 200 mg PO DAILY #0 08/29/20 01/12/22 History Loratadine [Claritin] 10 mg PO DAILY 08/29/20 01/12/22 History Turmeric Root Extract [Turmeric] 1,000 mg PO BID 08/29/20 01/12/22 History Melatonin 5 mg PO HS PRN tablet 02/14/21 01/12/22 Rx Apixaban [Eliquis] 5 mg PO BID 01/12/22 01/12/22 History Ascorbic Acid [Vitamin C] 500 mg PO DAILY 01/12/22 01/12/22 History Atorvastatin [Lipitor] 80 mg PO DAILY 01/12/22 01/12/22 History Cranberry 450mg 1 tab PO DAILY 01/12/22 01/12/22 History Insulin Glargine,Hum.rec.anlog 35 unit SQ HS 01/12/22 01/12/22 History [Basaglar Kwikpen U-100] Insulin Lispro [humaLOG Kwikpen] 8 unit SQ AC-TID 01/12/22 01/12/22 History Latanoprost/Pf [Latanoprost 0.005% 1 drop BOTH EYES HS 01/12/22 01/12/22 History Eye Drop] Metoprolol Tartrate [Lopressor] 25 mg PO DAILY@1200 01/12/22 01/12/22 History Metoprolol Tartrate [Lopressor] 75 mg PO BID@0900,2100 01/12/22 01/12/22 History DULoxetine HCL [Cymbalta] 90 mg PO DAILY 01/15/22 01/15/22 History Allergies Allergy/AdvReac Type Severity Reaction Status Date / Time codeine Allergy Rash/Hives Verified 01/12/22 13:43 morphine Allergy Rash/Hives Verified 01/12/22 13:43 Surgical - Exam Vital Signs Temp Pulse Resp BP Pulse Ox 97.9 F 98 16 101/69 96 01/12/22 10:29 01/12/22 10:29 01/12/22 10:29 01/12/22 10:29 01/12/22 10:29 - General no distress, no no pain - Eyes normal ocular movement, no pale - ENT normal nares, normal mucosa - Respiratory normal expansion, normal respiratory effort - Abdomen Abdomen: soft, non tender - Psychiatric oriented to time, oriented to person, oriented to place Results - Labs 01/17/22 09:26 01/17/22 09:26 Abnormal Lab Results - Last 24 Hours (Table) 01/15/22 01/17/22 01/17/22 Range/Units 06:23 09:26 09:26 RBC 3.15 L (4.30-5.90) m/uL Hgb 9.5 L (13.0-17.5) gm/dL Hct 29.9 L (39.0-53.0) % Lymphocytes # 0.6 L (1.0-4.8) k/uL Sodium 135 L (137-145) mmol/L Chloride 110 H (98-107) mmol/L Carbon Dioxide 20 L (22-30) mmol/L Glucose 176 H (74-99) mg/dL POC Glucose (mg/dL) (70-110) mg/dL Calcium 7.7 L (8.4-10.2) mg/dL AST 63 H (17-59) U/L ALT 50 H (4-49) U/L Alkaline Phosphatase 154 H (38-126) U/L Total Protein 5.2 L (6.3-8.2) g/dL Albumin 2.6 L (3.5-5.0) g/dL Procalcitonin 0.22 H (0.02-0.09) ng/mL 01/17/22 01/17/22 01/17/22 Range/Units 11:34 16:18 19:57 RBC (4.30-5.90) m/uL Hgb (13.0-17.5) gm/dL Hct (39.0-53.0) % Lymphocytes # (1.0-4.8) k/uL Sodium (137-145) mmol/L Chloride (98-107) mmol/L Carbon Dioxide (22-30) mmol/L Glucose (74-99) mg/dL POC Glucose (mg/dL) 222 H 192 H 219 H (70-110) mg/dL Calcium (8.4-10.2) mg/dL AST (17-59) U/L ALT (4-49) U/L Alkaline Phosphatase (38-126) U/L Total Protein (6.3-8.2) g/dL Albumin (3.5-5.0) g/dL Procalcitonin (0.02-0.09) ng/mL Microbiology - Last 24 Hours (Table) 01/13/22 19:51 Blood Culture - Preliminary Blood No Growth after 96 hours Diabetes panel 01/17/22 Range/Units 09:26 Sodium 135 L (137-145) mmol/L Potassium 3.8 (3.5-5.1) mmol/L Chloride 110 H (98-107) mmol/L Carbon Dioxide 20 L (22-30) mmol/L BUN 12 (9-20) mg/dL Creatinine 1.09 (0.66-1.25) mg/dL Glucose 176 H (74-99) mg/dL Calcium 7.7 L (8.4-10.2) mg/dL AST 63 H (17-59) U/L ALT 50 H (4-49) U/L Alkaline Phosphatase 154 H (38-126) U/L Total Protein 5.2 L (6.3-8.2) g/dL Albumin 2.6 L (3.5-5.0) g/dL Calcium panel 01/17/22 Range/Units 09:26 Calcium 7.7 L (8.4-10.2) mg/dL Albumin 2.6 L (3.5-5.0) g/dL Pituitary panel 01/17/22 Range/Units 09:26 Sodium 135 L (137-145) mmol/L Potassium 3.8 (3.5-5.1) mmol/L Chloride 110 H (98-107) mmol/L Carbon Dioxide 20 L (22-30) mmol/L BUN 12 (9-20) mg/dL Creatinine 1.09 (0.66-1.25) mg/dL Glucose 176 H (74-99) mg/dL Calcium 7.7 L (8.4-10.2) mg/dL Adrenal panel 01/17/22 Range/Units 09:26 Sodium 135 L (137-145) mmol/L Potassium 3.8 (3.5-5.1) mmol/L Chloride 110 H (98-107) mmol/L Carbon Dioxide 20 L (22-30) mmol/L BUN 12 (9-20) mg/dL Creatinine 1.09 (0.66-1.25) mg/dL Glucose 176 H (74-99) mg/dL Calcium 7.7 L (8.4-10.2) mg/dL Total Bilirubin 0.3 (0.2-1.3) mg/dL AST 63 H (17-59) U/L ALT 50 H (4-49) U/L Alkaline Phosphatase 154 H (38-126) U/L Total Protein 5.2 L (6.3-8.2) g/dL Albumin 2.6 L (3.5-5.0) g/dL Assessment and Plan Assessment: 71-year-old male with a 3.2 cm left-sided complex cyst. I reviewed the imaging and has been slowly increasing in size, but fairly slow rate up. Currently measures 3.2 cm. But of note the consistency of cyst has changed overtime it does appear partially more hyperdense. Discussed with the patient given this finding I recommend obtaining an MRI to better evaluate. From urology standpoint he is stable for discharge we will arrange for an MRI as an outpatient.
[2022-01-18 10:25] LABS: Basophils % (A) 0 %; Eosinophils # (A) 0.2 k/uL (0-0.7); Eosinophils % (A) 3 %; HCT 31.4 % (39.0-53.0); HGB 9.6 gm/dL (13.0-17.5); Hypochromasia Slight; Lymphocytes # (A) 0.6 k/uL (1.0-4.8); Lymphocytes % (A) 8 %; MCH 28.8 pg (25.0-35.0); MCHC 30.7 g/dL (31.0-37.0); MCV 93.8 fL (80.0-100.0); Mean Platelet Volume 9.3; Monocytes # (A) 0.5 k/uL (0-1.0); Monocytes % (A) 7 %; Neutrophils # (A) 6.1 k/uL (1.3-7.7); Neutrophils % (A) 81 %; Platelet Count 185 k/uL (150-450); RBC 3.34 m/uL (4.30-5.90); RDW 14.8 % (11.5-15.5); WBC 7.5 k/uL (3.8-10.6)
[2022-01-18 10:35] LABS: African American GFR (CKD) 82 (>60 ml/min/1.73 sqM); Anion Gap 8 mmol/L; Blood Urea Nitrogen 10 mg/dL (9-20); Calcium 8.1 mg/dL (8.4-10.2); Carbon Dioxide 21 mmol/L (22-30); Chloride 107 mmol/L (98-107); Glucose 142 mg/dL (74-99); Non-African American GFR(CKD) 71 (>60 ml/min/1.73 sqM); Potassium 4.2 mmol/L (3.5-5.1); Sodium 136 mmol/L (137-145)
[2022-01-18 11:57] LABS: Glucose,Whole Blood 141 mg/dL (70-110)
--- NOTE | 2022-01-18 12:28 | P.PN ---
Subjective Progress Note Date: 01/17/22 Principal diagnosis: Fever Patient is a 71-year-old male with multiple comorbidities presenting to the hospital after the patient apparently did have a fall syncopal episode subsequently the patient to spike fever that prompted this infectious disease consultation. On today's evaluation that is 01/17/2022, the patient did have a low-grade fever 100.1 after midnight however the patient is afebrile since then, the patient left-sided chest as well as flank pain has decreased in intensity, the patient denies having any shortness of breath or cough no abdominal pain or diarrhea Objective - Vital Signs Vital signs: Vital Signs Temp 97.9 F 01/17/22 07:00 Pulse 90 01/17/22 08:00 Resp 18 01/17/22 08:00 BP 96/60 01/17/22 07:00 Pulse Ox 96 01/17/22 07:00 FiO2 Intake & Output 01/16/22 01/17/22 01/17/22 18:59 06:59 18:59 Intake Total 360 120 Output Total 400 Balance 360 -400 120 Intake: Oral 360 120 Output: Urine 400 Other: Voiding Method Toilet Toilet Toilet Urinal Urinal Urinal # Voids 1 3 - Exam GENERAL DESCRIPTION: An elderly male lying in bed in no distress RESPIRATORY SYSTEM: Unlabored breathing , decreased breath sounds at bases HEART: S1 S2 regular rate and rhythm , ABDOMEN: Soft , no tenderness EXTREMITIES: No edema feet - Labs CBC & Chem 7: 01/18/22 09:55 01/18/22 09:55 Labs: Abnormal Lab Results - Last 24 Hours (Table) 01/16/22 01/16/22 01/17/22 Range/Units 17:06 21:08 03:28 RBC (4.30-5.90) m/uL Hgb (13.0-17.5) gm/dL Hct (39.0-53.0) % Lymphocytes # (1.0-4.8) k/uL Sodium (137-145) mmol/L Chloride (98-107) mmol/L Carbon Dioxide (22-30) mmol/L Glucose (74-99) mg/dL POC Glucose (mg/dL) 182 H 142 H 57 L (70-110) mg/dL Calcium (8.4-10.2) mg/dL AST (17-59) U/L ALT (4-49) U/L Alkaline Phosphatase (38-126) U/L Total Protein (6.3-8.2) g/dL Albumin (3.5-5.0) g/dL 01/17/22 01/17/22 01/17/22 Range/Units 07:05 09:26 09:26 RBC 3.15 L (4.30-5.90) m/uL Hgb 9.5 L (13.0-17.5) gm/dL Hct 29.9 L (39.0-53.0) % Lymphocytes # 0.6 L (1.0-4.8) k/uL Sodium 135 L (137-145) mmol/L Chloride 110 H (98-107) mmol/L Carbon Dioxide 20 L (22-30) mmol/L Glucose 176 H (74-99) mg/dL POC Glucose (mg/dL) 119 H (70-110) mg/dL Calcium 7.7 L (8.4-10.2) mg/dL AST 63 H (17-59) U/L ALT 50 H (4-49) U/L Alkaline Phosphatase 154 H (38-126) U/L Total Protein 5.2 L (6.3-8.2) g/dL Albumin 2.6 L (3.5-5.0) g/dL 01/17/22 Range/Units 11:34 RBC (4.30-5.90) m/uL Hgb (13.0-17.5) gm/dL Hct (39.0-53.0) % Lymphocytes # (1.0-4.8) k/uL Sodium (137-145) mmol/L Chloride (98-107) mmol/L Carbon Dioxide (22-30) mmol/L Glucose (74-99) mg/dL POC Glucose (mg/dL) 222 H (70-110) mg/dL Calcium (8.4-10.2) mg/dL AST (17-59) U/L ALT (4-49) U/L Alkaline Phosphatase (38-126) U/L Total Protein (6.3-8.2) g/dL Albumin (3.5-5.0) g/dL Microbiology - Last 24 Hours (Table) 01/13/22 19:51 Blood Culture - Preliminary Blood No Growth after 72 hours Assessment and Plan (1) Fever Current Visit: Yes Status: Acute Code(s): R50.9 - FEVER, UNSPECIFIED SNOMED Code(s): 010735876 Plan: 1patient presenting to the hospital with a fall/syncopal episode and has been complaining of pain to the left side of the chest from the fall now with a fever but no obvious localizing signs and symptoms of infection. 2blood culture has been obtained which are currently pending, chest x-ray did not show any acute cardiopulmonary process, 3-patient did have CT of abdominal pelvis concerning for possible less renal hemorrhagic cyst which was reviewed with the radiologist and more likely the source of the fever urology has been consulted await their evaluation continue with empiric Zosyn Time with Patient: Less than 30
--- NOTE | 2022-01-18 12:29 | P.PN ---
Subjective Progress Note Date: 01/18/22 Principal diagnosis: Fever Patient is a 71-year-old male with multiple comorbidities presenting to the hospital after the patient apparently did have a fall syncopal episode subsequently the patient to spike fever that prompted this infectious disease consultation. On today's evaluation that is 01/18/2022, the patient is afebrile for more than 24 hours, the patient left-sided chest as well as flank pain has decreased in intensity, the patient denies having any shortness of breath or cough , the patient denies abdominal pain or diarrhea, the patient is feeling better wants to go home Objective - Vital Signs Vital signs: Vital Signs Temp 98.5 F 01/18/22 07:00 Pulse 77 01/18/22 07:00 Resp 16 01/18/22 07:00 BP 112/69 01/18/22 07:00 Pulse Ox 98 01/18/22 07:00 FiO2 Intake & Output 01/17/22 01/18/22 01/18/22 18:59 06:59 18:59 Intake Total 240 336 Output Total 1000 Balance -760 336 Intake: Oral 240 336 Output: Urine 200 Stool 800 Other: Voiding Method Toilet Toilet Urinal Urinal # Voids 3 2 # Bowel Movements 2 - Exam GENERAL DESCRIPTION: An elderly male lying in bed in no distress RESPIRATORY SYSTEM: Unlabored breathing , decreased breath sounds at bases HEART: S1 S2 regular rate and rhythm , ABDOMEN: Soft , no tenderness EXTREMITIES: No edema feet - Labs CBC & Chem 7: 01/18/22 09:55 01/18/22 09:55 Labs: Abnormal Lab Results - Last 24 Hours (Table) 01/15/22 01/17/22 01/17/22 Range/Units 06:23 09:26 11:34 RBC 3.15 L (4.30-5.90) m/uL Hgb 9.5 L (13.0-17.5) gm/dL Hct 29.9 L (39.0-53.0) % MCHC (31.0-37.0) g/dL Lymphocytes # 0.6 L (1.0-4.8) k/uL POC Glucose (mg/dL) 222 H (70-110) mg/dL Procalcitonin 0.22 H (0.02-0.09) ng/mL 01/17/22 01/17/2201/18/22 Range/Units 16:18 19:57 09:55 RBC 3.34 L (4.30-5.90) m/uL Hgb 9.6 L (13.0-17.5) gm/dL Hct 31.4 L (39.0-53.0) % MCHC 30.7 L (31.0-37.0) g/dL Lymphocytes # 0.6 L (1.0-4.8) k/uL POC Glucose (mg/dL) 192 H 219 H (70-110) mg/dL Procalcitonin (0.02-0.09) ng/mL Microbiology - Last 24 Hours (Table) 01/13/22 19:51 Blood Culture - Preliminary Blood No Growth after 96 hours Assessment and Plan (1) Fever Current Visit: Yes Status: Acute Code(s): R50.9 - FEVER, UNSPECIFIED SNOMED Code(s): 937321207 Plan: 1patient presenting to the hospital with a fall/syncopal episode and has been complaining of pain to the left side of the chest from the fall now with a fever but no obvious localizing signs and symptoms of infection. 2blood culture has been obtained which are currently pending, chest x-ray did not show any acute cardiopulmonary process, 3-patient did have CT of abdominal pelvis concerning for possible less renal hemorrhagic cyst which was reviewed with the radiologist and more likely the source of the fever urology has evaluated the patient recommended outpatient MRI patient is eager to go home culture has been negative we'll give a short course of oral Augmentin to be on the safe side and close outpatient follow-up
--- NOTE | 2022-01-20 10:50 | P.DS ---
Providers Date of admission: 01/17/22 09:26 Expected date of discharge: 01/18/22 Attending physician: Xiomara Berrios Consults: 01/13/22 19:10 Consult Physician Routine Consulting Provider: Thu Diaz Consult Reason/Comments: Fever Do you want consulting provider notified?: Yes, Notify in am 01/17/22 13:02 Consult Physician Routine Consulting Provider: Raphael Hernandez Consult Reason/Comments: Complex renal cyst Do you want consulting provider notified?: Yes Primary care physician: Miguel Bautista [facility] Course: Final diagnosis Discharge disposition Patient is being discharged in a stable condition with guarded prognosis to home . Patient will follow-up with Dr. Bautista in the outpatient setting upon discharge. Patient is to also follow-up with cardiology, and urology as scheduled. Patient will continue on oral Augmentin twice daily for the next one week. Total time taken is greater than 35 minutes. Hospital course This is a 71-year-old male who was recently admitted with fall with possible syncope and was being closely monitored. 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 Patient also continued to have some left anterior rib pain. Patient also experienced time fevers with no obvious signs of infection and infectious disease was consulted and following. Patient underwent CT of the abdomen which revealed a bilateral pleural effusion and basilar pulmonary infiltrates with atelectasis with a complex left renal cyst which is consistent with a hemorrhagic cyst with small ascites noted. Urology was consulted and evaluated the patient recommending outpatient MRI and follow-up in the clinic. Patient reports he is feeling well and is extremely eager to go home today. Patient reports he will be discharged today. Currently patient remains afebrile and discussed with infectious disease and patient will continue on oral Augmentin twice daily for the next 1 week and strongly encouraged outpatient follow-up with primary care provider along with cardiology and urology as discussed. Currently no reports of chest pain, shortness of breath, or palpitations. Patient is afebrile. No reports of nausea or vomiting and patient is tolerating diet. Patient will be discharged home today. Physical exam: Gen: This is a 71-year-old male awake, alert and oriented 3, well-developed, we ll-nourished. HEENT: Head is atraumatic, normocephalic. Pupils equal, round. Sclerae is anicteric. NECK: Supple. No JVD. No lymphadenopathy. No thyromegaly. LUNGS: Clear to auscultation. No wheezes or rhonchi. No intercostal retractions. HEART: Regular rate and rhythm. No murmur. ABDOMEN: Soft. Bowel sounds are present. No masses. Mild tenderness on the left upper quadrant with deep palpation. EXTREMITIES: No pedal edema. No calf tenderness. NEUROLOGICAL: Patient is awake, alert and oriented x3. Cranial nerves 2 through 12 are grossly intact. Please refer to medication reconciliation sheet for a list of medications. The impression and plan of care has been dictated by Micki Tucker, Nurse Practitioner as directed. Dr. Mi MD I have performed a history and examination and MDM of this patient, discussed the same with the dictator, and agree with the dictator's assessment and plan as written ,documented as a scribe. Based on total visit time, I have performed more than 50% of the visit. Patient Condition at Discharge: Stable Plan - Discharge Summary Discharge Rx Participant: No New Discharge Prescriptions: New Amoxic-Pot Clav 875-125Mg [Augmentin 875-125] 1 tab PO Q12HR 7 Days #14 tab Metoprolol Tartrate [Lopressor] 50 mg PO BID 30 Days #60 tab Acetaminophen Tab [Tylenol] 325 mg PO Q6HR PRN tab PRN Reason: Fever And/ Or Pain Continue Multivit-Min/FA/Lycopen/Lutein [Centrum Silver Men Tablet] 1 cap PO DAILY Trospium Chloride [Sanctura] 20 mg PO BID Tamsulosin [Flomax] 0.4 mg PO HS Finasteride [Proscar] 5 mg PO DAILY Cholecalciferol [Vitamin D3 (25 Mcg = 1000 Iu)] 25 mcg PO DAILY Omeprazole 40 mg PO DAILY Cranberry Fruit Extract [Cranberry] 200 mg PO DAILY #0 Ascorbic Acid [Vitamin C] 500 mg PO DAILY Latanoprost/Pf [Latanoprost 0.005% Eye Drop] 1 drop BOTH EYES HS Cranberry 450mg 1 tab PO DAILY DULoxetine HCL [Cymbalta] 90 mg PO DAILY Loratadine [Claritin] 10 mg PO DAILY Turmeric Root Extract [Turmeric] 1,000 mg PO BID Melatonin 5 mg PO HS PRN tablet PRN Reason: Insomnia Apixaban [Eliquis] 5 mg PO BID Atorvastatin [Lipitor] 80 mg PO DAILY Changed Insulin Lispro [humaLOG Kwikpen] 6 unit SQ AC-TID #0 Insulin Glargine,Hum.rec.anlog [Basaglar Kwikpen U-100] 32 unit SQ HS #0 Discontinued Metoprolol Tartrate [Lopressor] 25 mg PO DAILY@1200 Metoprolol Tartrate [Lopressor] 75 mg PO BID@0900,2100 Discharge Medication List Finasteride [Proscar] 5 mg PO DAILY 02/06/17 [History] Multivit-Min/FA/Lycopen/Lutein [Centrum Silver Men Tablet] 1 cap PO DAILY 02/06/17 [History] Tamsulosin [Flomax] 0.4 mg PO HS 02/06/17 [History] Trospium Chloride [Sanctura] 20 mg PO BID 02/06/17 [History] Cholecalciferol [Vitamin D3 (25 Mcg = 1000 Iu)] 25 mcg PO DAILY 11/19/17 [Histor y] Omeprazole 40 mg PO DAILY 12/05/18 [History] Cranberry Fruit Extract [Cranberry] 200 mg PO DAILY #0 08/29/20 [History] Loratadine [Claritin] 10 mg PO DAILY 08/29/20 [History] Turmeric Root Extract [Turmeric] 1,000 mg PO BID 08/29/20 [History] Melatonin 5 mg PO HS PRN tablet 02/14/21 [Rx] Apixaban [Eliquis] 5 mg PO BID 01/12/22 [History] Ascorbic Acid [Vitamin C] 500 mg PO DAILY 01/12/22 [History] Atorvastatin [Lipitor] 80 mg PO DAILY 01/12/22 [History] Cranberry 450mg 1 tab PO DAILY 01/12/22 [History] Latanoprost/Pf [Latanoprost 0.005% Eye Drop] 1 drop BOTH EYES HS 01/12/22 [History] DULoxetine HCL [Cymbalta] 90 mg PO DAILY 01/15/22 [History] Acetaminophen Tab [Tylenol] 325 mg PO Q6HR PRN tab 01/18/22 [Rx] Amoxic-Pot Clav 875-125Mg [Augmentin 875-125] 1 tab PO Q12HR 7 Days #14 tab 08/ 09/22 [Rx] Insulin Glargine,Hum.rec.anlog [Basaglar Kwikpen U-100] 32 unit SQ HS #0 01/18/22 [Rx] Insulin Lispro [humaLOG Kwikpen] 6 unit SQ AC-TID #0 01/18/22 [Rx] Metoprolol Tartrate [Lopressor] 50 mg PO BID 30 Days #60 tab 01/18/22 [Rx] Follow up Appointment(s)/Referral(s): Nadeen Gaitan MD [STAFF PHYSICIAN] - 1 Week Mitesh Wilson MD [STAFF PHYSICIAN] - 1 Week Miguel Bautista MD [Primary Care Provider] - 1-2 days Ambulatory/Diagnostic Orders: Complete Blood Count w/diff [LAB.AMB] Time Frame: 3 Days, Location: None Selected Patient Instructions/Handouts: Acute Kidney Injury (DC) Activity/Diet/Wound Care/Special Instructions: outpatient MRI with urology Activity Limited until follow-up Follow-up with primary care provider on discharge Continue taking medications as prescribed Follow-up outpatient with MRI and urology Continue taking medications as prescribed and follow-up with cardiology outpatient Recommend repeat labs in the next 2-3 days Continue heart healthy consistent carb diet Continue monitoring blood sugars closely and keep a diary for primary care follow-up Discharge Disposition: HOME SELF-CARE
== END 2022-01-18 13:43 | disposition home or self-care (01) | DRG 699 ==
LOC: EC 10:14 → 6NMEDSUR 14:15 → OBSVTOIN 01-17 09:26
PROVIDERS: ADMIT Hospitalist; ATTEND Hospitalist
DX: N28.1 Cyst of kidney, acquired (principal); I48.92 Unspecified atrial flutter; J90 Pleural effusion, not elsewhere classified; J98.11 Atelectasis; K51.90 Ulcerative colitis, unspecified, without complications; R18.8 Other ascites; I95.1 Orthostatic hypotension; N17.9 Acute kidney failure, unspecified; R50.9 Fever, unspecified; E87.5 Hyperkalemia; H91.90 Unspecified hearing loss, unspecified ear; I10 Essential (primary) hypertension; I25.10 Atherosclerotic heart disease of native coronary artery without angina pectoris; I48.91 Unspecified atrial fibrillation; N40.0 Benign prostatic hyperplasia without lower urinary tract symptoms; W19.XXXA Unspecified fall, initial encounter; E86.0 Dehydration; E78.5 Hyperlipidemia, unspecified; D72.829 Elevated white blood cell count, unspecified; E11.9 Type 2 diabetes mellitus without complications; Z96.652 Presence of left artificial knee joint; Z20.822 Contact with and (suspected) exposure to COVID-19; G47.30 Sleep apnea, unspecified; F51.3 Sleepwalking [somnambulism]; Z96.1 Presence of intraocular lens; R07.89 Other chest pain; Z79.01 Long term (current) use of anticoagulants; Z79.4 Long term (current) use of insulin; Z79.899 Other long term (current) drug therapy; Z86.73 Personal history of transient ischemic attack (TIA), and cerebral infarction without residual deficits; Z87.442 Personal history of urinary calculi; Z87.891 Personal history of nicotine dependence; Z90.49 Acquired absence of other specified parts of digestive tract; Z93.2 Ileostomy status; Z95.1 Presence of aortocoronary bypass graft; Z98.41 Cataract extraction status, right eye; Z98.42 Cataract extraction status, left eye; Z98.890 Other specified postprocedural states; Z88.5 Allergy status to narcotic agent; Z80.0 Family history of malignant neoplasm of digestive organs; Z82.49 Family history of ischemic heart disease and other diseases of the circulatory system; Z83.3 Family history of diabetes mellitus
CPT/HCPCS: 36415; 70450; 71046; 72125; 74177; 76705; 80048; 80053; 80076; 81001; 83605; 83735; 84145; 84484; 85025; 85610; 85730; 86140; 87040; 87502; 87635; 93005; 96361; 96374; 99285

== ENCOUNTER → 2022-02-11 | Outpatient (CLI) | payer MEDICARE ==
--- NOTE | 2022-02-12 06:12 | MR ---
EXAMINATION TYPE: MR kidney wo/w con DATE OF EXAM: 02/11/2022 COMPARISON: CT scan 01/15/2022 and 05/15/2018 HISTORY: Left renal mass. CONTRAST: Standard multiplanar, multisequence MRI departmental protocol images were obtained without contrast a nd with 7 mL intravenous Gadavist gadolinium contrast. Liver and spleen appear intact. The bile ducts are not dilated. Spleen is large and measures 14 cm. T here is no evidence of pancreatic mass. The stomach is intact. Gallbladder is intact. The bile ducts are not dilated. No evidence of pleural effusion. No sign of pericardial effusion. There is 3.2 cm rounded fluid signal mass medial left kidney consistent with simple cyst. There is 2. 5 cm rounded mixed signal mass lateral left kidney. There is no adrenal mass. No retroperitoneal festus opathy. I see no definite pathologic renal enhancement There is no ascites. No sign of a bowel obstruction. Lumbar spine appears intact. IMPRESSION: Simple cyst medial left kidney. There is a atypical cyst lateral left kidney. Margins are sharp. No p athologic enhancement. I have low suspicion of malignancy.
== END | disposition home or self-care (01) ==
LOC: RADMRIMAIN 15:10
PROVIDERS: ATTEND Urology
DX: N28.1 Cyst of kidney, acquired (principal)
CPT/HCPCS: 74183; A9585

== ENCOUNTER → 2022-02-17 | Outpatient (CLI) | payer MEDICARE ==
[2022-02-17 15:47] LABS: Basophils # (A) 0.06 X 10*3/uL (0.00-0.10); Basophils % (A) 0.5 %; Eosinophils # (A) 0.11 X 10*3/uL (0.04-0.35); Eosinophils % (A) 0.9 %; HCT 40.8 % (39.6-50.0); HGB 12.8 g/dL (13.0-17.0); Immature Grans, Automated 2.5 %; Lymphocytes # (A) 0.87 X 10*3/uL (0.90-5.00); Lymphocytes % (A) 7.1 %; MCH 29.2 pg (27.0-32.0); MCHC 31.4 g/dL (32.0-37.0); MCV 92.9 fL (80.0-97.0); Mean Platelet Volume 14.3 fL (9.5-12.2); Monocytes # (A) 0.96 X 10*3/uL (0.20-1.00); Monocytes % (A) 7.8 %; NRBC Per 100 WBC 0 /100 WBCS (0.0-0.0); Neutrophils # (A) 9.93 X 10*3/uL (1.80-7.70); Neutrophils % (A) 81.2 %; Platelet Count 143 X 10*3/uL (140-440); RBC 4.39 X 10*6/uL (4.40-5.60); RDW 14.5 % (11.5-14.5); WBC 12.23 X 10*3/uL (4.50-10.00)
[2022-02-17 16:52] LABS: Immunoglobulin M 70.2 mg/dL (40.0-280.0)
[2022-02-17 19:04] LABS: African American GFR (CKD) 59.9 (60.0-200.0); Albumin 4.4 g/dL (3.8-4.9); Albumin/Globulin Ratio 1.2 (1.60-3.17); Anion Gap 15.2 mmol/L (10.00-18.00); BUN/Creat Ratio 31.19 Ratio (12.00-20.00); Blood Urea Nitrogen 42.1 mg/dL (9.0-27.0); Carbon Dioxide 16.9 mmol/L (20.0-27.5); Globulin 3.7 g/dL (1.6-3.3); Non-African American GFR(CKD) 51.7 (60.0-200.0); Potassium 5.5 mmol/L (3.5-5.5); Total Bilirubin 0.3 mg/dL (0.30-1.20); Total Protein 8.1 g/dL (6.2-8.2)
[2022-02-18 08:27] LABS: Protein, Total 7.9 g/dL (6.2-8.2)
[2022-02-21 11:10] LABS: Albumin 3.71 g/dL (3.80-4.90); Gamma Globulin 1.35 g/dL (0.70-1.50)
== END | disposition home or self-care (01) ==
LOC: LABWHC1 09:59
PROVIDERS: ATTEND Internal Medicine Interventional Cardiology
DX: E11.9 Type 2 diabetes mellitus without complications (principal); I25.10 Atherosclerotic heart disease of native coronary artery without angina pectoris; D72.829 Elevated white blood cell count, unspecified; R35.89 Other polyuria; R77.1 Abnormality of globulin
CPT/HCPCS: 36415; 80053; 82784; 83930; 83935; 84165; 84300; 85025

== ENCOUNTER → 2022-02-24 | Outpatient (CLI) | payer MEDICARE ==
--- NOTE | 2022-02-24 15:50 | XR ---
EXAM TYPE: LUMBAR SPINE X RAY SERIES COMPARISON: NONE HISTORY: Pain TECHNIQUE: 4 views are submitted. FINDINGS: The pedicles are intact. The transverse processes are intact. There is postsurgical change in the a bdomen with vascular calcifications. There is a superior endplate compression fracture L1 of indeterm inate age. Not seen on the CT scan in the 622. Curvature of the spine noted with multilevel hypertrop hic and degenerative change. Severe facet arthropathy lower lumbar spine with grade 1 anterolisthesis L4 on L5. Report called to referring clinician. 02/24/2022 at 3:45 PM. IMPRESSION: 1. There is a mild superior endplate compression fracture L1 which was not seen on the CT scan of 01/11 correlate clinically. Acute compression fracture in the differential diagnosis. Follow-up MRI could be obtained. 2. Severe facet arthropathy and multilevel degenerative disc disease most marked at L4-5 and L5-S1. S uspect foraminal encroachment.
== END | disposition home or self-care (01) ==
LOC: RADXRMAIN 12:07
PROVIDERS: ATTEND Nurse Practitioner Family
DX: M51.27 Other intervertebral disc displacement, lumbosacral region (principal); M47.816 Spondylosis without myelopathy or radiculopathy, lumbar region
CPT/HCPCS: 72100

== ENCOUNTER → 2022-02-25 | Outpatient (CLI) | payer MEDICARE ==
[2022-02-25 23:36] LABS: Basophils # (A) 0.05 X 10*3/uL (0.00-0.10); Basophils % (A) 0.3 %; Eosinophils # (A) 0.07 X 10*3/uL (0.04-0.35); Eosinophils % (A) 0.4 %; HCT 39.8 % (39.6-50.0); HGB 12.4 g/dL (13.0-17.0); Immature Grans, Automated 1.2 %; Lymphocytes # (A) 0.71 X 10*3/uL (0.90-5.00); Lymphocytes % (A) 4.3 %; MCH 29.4 pg (27.0-32.0); MCHC 31.2 g/dL (32.0-37.0); MCV 94.3 fL (80.0-97.0); Mean Platelet Volume 13.2 fL (9.5-12.2); Monocytes # (A) 1.29 X 10*3/uL (0.20-1.00); Monocytes % (A) 7.7 %; NRBC Per 100 WBC 0 /100 WBCS (0.0-0.0); Neutrophils # (A) 14.37 X 10*3/uL (1.80-7.70); Neutrophils % (A) 86.1 %; Platelet Count 231 X 10*3/uL (140-440); RBC 4.22 X 10*6/uL (4.40-5.60); RDW 14.4 % (11.5-14.5); WBC 16.69 X 10*3/uL (4.50-10.00)
[2022-02-25 23:42] LABS: African American GFR (CKD) 61.6 (60.0-200.0); Albumin 4.2 g/dL (3.8-4.9); Albumin/Globulin Ratio 1.25 (1.60-3.17); Anion Gap 14.4 mmol/L (10.00-18.00); BUN/Creat Ratio 18.79 Ratio (12.00-20.00); Blood Urea Nitrogen 24.8 mg/dL (9.0-27.0); Calcium 9.6 mg/dL (8.7-10.3); Carbon Dioxide 20.2 mmol/L (20.0-27.5); Globulin 3.3 g/dL (1.6-3.3); Non-African American GFR(CKD) 53.1 (60.0-200.0); Total Bilirubin 0.5 mg/dL (0.30-1.20); Total Protein 7.5 g/dL (6.2-8.2)
--- NOTE | 2022-02-27 09:02 | XR ---
EXAMINATION TYPE: XR chest 2V DATE OF EXAM: 02/25/2022 COMPARISON: 01/15/2022 HISTORY: 71-year-old male [id number], chest tightness. TECHNIQUE: Frontal and lateral views FINDINGS: Heart normal size. Mild tortuous thoracic aorta. Median sternotomy wires are present. No pleural effu halley. Focal patchy left basilar opacity appears new. IMPRESSION: Some focal left basilar opacity has developed. Correlate for atelectasis or early developing pneumoni a. Follow-up exam in 4-6 weeks to assess for clearance.
== END | disposition home or self-care (01) ==
LOC: LABWHC1 15:28
PROVIDERS: ATTEND Internal Medicine Geriatric Medicine
DX: E11.22 Type 2 diabetes mellitus with diabetic chronic kidney disease (principal); R05.9 Cough, unspecified; N18.9 Chronic kidney disease, unspecified
CPT/HCPCS: 36415; 71046; 80053; 85025

== ENCOUNTER → 2022-03-03 | Outpatient (CLI) | payer MEDICARE ==
--- NOTE | 2022-03-03 22:47 | MR ---
EXAMINATION TYPE: MR MRCP DATE OF EXAM: 03/03/2022 COMPARISON: MRI kidney 20 days ago and older studies. HISTORY: Abdominal pain, weight loss. Standard multiplanar, multisequence MRI departmental protocol Multiplanar, multisequence images of the abdomen were acquired without contrast. Diffusion weighted i maging was performed. Thin and thick slice MRCP imaging performed on the MRI scanner. FINDINGS: The liver/gallbladder/pancreas/biliary system: No intraluminal gallstones. Liver normal in size witho ut concerning solid or cystic mass. Pancreas is normal in size without concerning solid or cystic mas s. MRCP imaging shows no suspicious intrahepatic or extrahepatic biliary dilatation. Patent cystic du ct is identified. Pancreatic duct is patent and within normal limits. Other: Susceptibility artifact from lower sternotomy wires is redemonstrated. Lung bases are clear. S pleen and both adrenal glands appear within normal limits. There is some cortical thinning in both ki dneys with occasional benign thin-walled cyst noted scattered throughout the left kidney. There is mi dpole lesion of T1 hyperintensity and T2 hyperintensity with rim T2 hypointensity at site of prior la rger nonsimple cyst on most recent CT suggests resolving hemorrhagic cyst. No suspicious small or lar ge bowel dilatation. Right-sided ostomy redemonstrated. Osseous structures are intact. IMPRESSION: No suspicious biliary or pancreatic duct dilatation. Nonsimple cyst lateral left kidney m idpole level diminished in size from most recent CT strongly favors benign etiology such as resolving hemorrhagic cyst.
== END | disposition home or self-care (01) ==
LOC: RADMRIMAIN 07:22
PROVIDERS: ATTEND Nurse Practitioner Family
DX: R10.9 Unspecified abdominal pain (principal); R74.8 Abnormal levels of other serum enzymes
CPT/HCPCS: 74181

== ENCOUNTER → 2022-03-04 | Outpatient (CLI) | payer MEDICARE ==
[2022-03-04 17:11] LABS: Partial Thromboplastin Time 25.7 sec (22.0-30.0); Prothrombin Time 10.6 sec (9.0-12.0)
[2022-03-04 22:55] LABS: Basophils # (A) 0.05 X 10*3/uL (0.00-0.10); Basophils % (A) 0.5 %; Eosinophils # (A) 0.18 X 10*3/uL (0.04-0.35); Eosinophils % (A) 1.8 %; HCT 40.5 % (39.6-50.0); HGB 12.5 g/dL (13.0-17.0); Lymphocytes # (A) 1.03 X 10*3/uL (0.90-5.00); Lymphocytes % (A) 10.2 %; MCH 29.5 pg (27.0-32.0); MCHC 30.9 g/dL (32.0-37.0); MCV 95.5 fL (80.0-97.0); Mean Platelet Volume 12.7 fL (9.5-12.2); Monocytes # (A) 0.78 X 10*3/uL (0.20-1.00); Monocytes % (A) 7.7 %; NRBC Per 100 WBC 0 /100 WBCS (0.0-0.0); Neutrophils # (A) 7.83 X 10*3/uL (1.80-7.70); Neutrophils % (A) 77.8 %; Platelet Count 381 X 10*3/uL (140-440); RBC 4.24 X 10*6/uL (4.40-5.60); RDW 14.1 % (11.5-14.5); WBC 10.07 X 10*3/uL (4.50-10.00)
[2022-03-04 23:18] LABS: Appearance,Urine Clear (Clear); Bilirubin,Urine Negative (Negative); Blood,Urine Negative (Negative); Color,Urine Yellow (Yellow); Ketones,Urine Negative (Negative); Nitrite,Urine Negative (Negative); PH, Urine 5.5 (5.0-8.0); Specific Gravity,Urine 1.016 (1.001-1.030); Urobilinogen,Urine 0.2 (0.2,1.0)
[2022-03-05 00:32] LABS: African American GFR (CKD) 65.8 (60.0-200.0); Albumin/Globulin Ratio 1.06 (1.60-3.17); Anion Gap 13.8 mmol/L (10.00-18.00); BUN/Creat Ratio 22.08 Ratio (12.00-20.00); Blood Urea Nitrogen 27.6 mg/dL (9.0-27.0); Calcium 9.6 mg/dL (8.7-10.3); Carbon Dioxide 18.2 mmol/L (20.0-27.5); Globulin 3.8 g/dL (1.6-3.3); Non-African American GFR(CKD) 56.8 (60.0-200.0); Potassium 5.6 mmol/L (3.5-5.5); Total Bilirubin 0.3 mg/dL (0.30-1.20); Total Protein 7.8 g/dL (6.2-8.2)
== END | disposition home or self-care (01) ==
LOC: LABPAT 15:37
PROVIDERS: ATTEND Orthopaedic Surgery Orthopaedic Surgery of the Spine
DX: Z01.818 Encounter for other preprocedural examination (principal); M48.56XA Collapsed vertebra, not elsewhere classified, lumbar region, initial encounter for fracture; I44.30 Unspecified atrioventricular block
CPT/HCPCS: 80053; 81003; 85025; 85610; 85730; 93005

== ENCOUNTER 2022-03-14 06:23 | Day surgery (SDC) | payer MEDICARE ==
[2022-03-09 12:01] VITALS: BMI 20.7
[2022-03-14] MEDS ORDERED: fentaNYL (PF) 50 MCG/ML 2 ML AMP IV PRN (06:43)
[2022-03-14] MEDS ORDERED: LIDOCAINE 1% (10MG/ML) FOR IV START INTRADERMA PRN (06:43)
[2022-03-14] MEDS ORDERED: ONDANSETRON 4 MG/2 ML VIAL IVP ONE (06:43)
[2022-03-14 07:13] LABS: Glucose,Whole Blood 99 mg/dL (70-110)
[2022-03-14] MEDS: LACTATED RINGERS 1,000 ML IV SCH ×2 (07:13→07:26)
[2022-03-14] MEDS ORDERED: MIDAZOLAM 2 MG/2 ML VIAL ONE (07:22)
[2022-03-14] MEDS ORDERED: PHENYLEPHRINE-0.9% NACL SYG 1,000 MCG/10 ML SYRINGE ONE (07:22)
[2022-03-14] MEDS ORDERED: fentaNYL (PF) 50 MCG/ML 2 ML AMP ONE (07:22)
[2022-03-14] MEDS ORDERED: LIDOCAINE 2% INJ 20 MG/ML (2 ML VIAL) ONE (07:22)
[2022-03-14] MEDS ORDERED: PROPOFOL 10 MG/ML 20 ML VIAL IV ONE (07:22)
[2022-03-14] MEDS ORDERED: IOPAMIDOL M200 10 ML VIAL MISCELLANE ONE ×2 (07:53)
[2022-03-14] MEDS ORDERED: BUPIVACAINE (PF) 0.5% 30 ML VIAL SQ ONE ×2 (07:53)
[2022-03-14] MEDS ORDERED: BENZOCAINE/MENTHOL LOZENG 1 EACH LOZENGE MUCOUS MEM PRN (08:26)
[2022-03-14] MEDS ORDERED: ONDANSETRON 4 MG/2 ML VIAL IVP PRN (08:26)
[2022-03-14] MEDS ORDERED: HYDROmorphone 0.5 MG/0.5 ML SYRINGE IVP PRN (08:26)
[2022-03-14] MEDS ORDERED: ACETAMINOPHEN TAB 325 MG TAB PO PRN (08:29)
[2022-03-14] MEDS ORDERED: traMADol 50 MG TAB PO PRN (08:29)
[2022-03-14] MEDS ORDERED: MELATONIN 5 MG TABLET PO PRN (08:29)
[2022-03-14] MEDS ORDERED: SODIUM CHLORIDE 0.9% 1,000 ML IV SCH (08:30)
[2022-03-14 08:33] VITALS: TEMP 97
--- NOTE | 2022-03-14 08:34 | P.OP ---
Date of Procedure: 03/14/22 Preoperative Diagnosis: L1 vertebral compression fracture, subacute traumatic Postoperative Diagnosis: L1 vertebral compression fracture, subacute traumatic Anesthesia: GETA Pathology: other (L1 vertebral body biopsy sent to pathology) Condition: stable Disposition: PACU Description of Procedure: BRIEF OPERATIVE NOTE Preoperative Diagnosis: L1 vertebral compression fracture, subacute traumatic Postoperative Diagnosis: L1 vertebral compression fracture, subacute traumatic Procedure: Kyphoplasty of L1 Vertebral body biopsy of L1 Use of biplanar fluoroscopic guidance Surgeon: Dr. Browning Reinsurance Claim Analyst: Georges Gee is present throughout the entire the case persistence during positioning, dissection, exposure, visualization, and all crucial elements of the case as well as closure. Anesthesia: General anesthesia Estimated blood loss: Less than 10 mL Specimen: Vertebral body biopsy of L1 sent to pathology in formalin Complications: None apparent Components implanted: Bone cement approximately 6 mL Disposition: To recovery room in good stable condition. OPERATIVE INDICATIONS The patient has been having issues in their back ever since sustaining an injury. The patient has been through conservative treatment. They attempted conservative care with bracing however they're not having any benefit despite attempted brace use. He has a colostomy which was impeding with the use of any brace. They continue to have significant pain and debility due to their fracture. He is not having significant benefit was continue to have significant pain centered at the thoracolumbar junction. We felt that the pain was stemming from the fracture at L1. The pain correlated with his imaging findings. We d iscussed various treatment options including surgery, and the patient wishes to proceed with surgery We discussed the risk, patient's alternatives and benefits of surgery including but not limited to, risk of bleeding risk of infection, risk of need for further surgery, risk of decreased, loss of motion, loss of function, cement extravasation, nerve damage, paralysis, heart attack, blindness and . OPERATIVE SUMMARY After discussing all the risks, patient alternatives and benefits at length, the patient elected to proceed with surgical intervention, signed informed consent, and presented for their procedure. The patient was seen and examined in the preoperative holding area and the surgical site was marked. The patient was given antibiotics and brought to the operating room. The patient was sedated and intubated by anesthesia in standard fashion. The patient was positioned on to the operating room table in a prone position on the appropriate well-padded and well molded bilateral chest rolls. We were careful to pad any bony prominences and pressure points. We were careful to maintain the patient's cervical spine and good neutral alignment and position throughout. We used 2 C-arm machines to establish biplanar fluoroscopic guidance in AP and lateral positions. We were able to localize the fractures at L1 appropriately. The patient was prepped and draped in a normal standard fashion. An appropriate timeout and keystone protocol performed. We were able to proceed with the surgery. The local wound area was infiltrated with local anesthetic. An incision was made over the lateral aspect of the pedicle over the appropriate levels with a small 2 mm stab incision on the left. Intraoperative fluoroscopy was taken which showed a marker at the appropriate level at L1. With the appropriate level positively confirmed, I was able to position a sharp trocar over the lateral aspect of the pedicle. As able to advance the trocar into the pedicle and into the posterior aspect of vertebral body being careful to avoid penetration cephalad caudad or medially. The trocar was placed appropriately into the posterior aspect of vertebral body at the appropriate levels of L1. This was confirmed with C-arm guidance. With the trocar intact I was then able to take a bone biopsy with a biopsy punch or a bony drill. The L1 biopsy specimen was passed off to be sent to pathology in formalin. I was then able to place the kyphoplasty balloon within the vertebral body. The position was checked on C-arm. I was able to inflate the balloon under low pressure and visualization with C-arm. The balloon was well enclosed within the vertebral body. The cement was prepared. With the cement at appropriate working condition the balloons were deflated and removed. I was able to place bony cement with trocar with the cement delivery device under low pressure. It had good fill within the vertebral body. There is no evidence of any extravasation of the cement posteriorly toward the canal. The cement was well contained at the appropriate levels of L1. The cement was allowed to cure appropriately. The trochars removed and final images were taken on C-arm. This showed the cement at the appropriate levels of L1. We were able to proceed with closure. The wound was cleaned and dried and dressed with the appropriate dressing. The drapes were broken down. The patient was gently rolled back onto their hospital bed being careful to maintain their cervical spine and good neutral alignment and position. They were woken up by anesthesia, extubated, and brought to the recovery room in good stable condition. The patient will be admitted to the hospital for observation and for appropriate postoperative care, medical management and monitoring. We will continue to follow them closely about the postoperative course.
[2022-03-14 08:48] LABS: Glucose,Whole Blood 106 mg/dL (70-110)
[2022-03-14 08:51] VITALS: RESP 16
--- NOTE | 2022-03-14 08:55 | FL ---
Intraoperative/procedural fluoroscopic services were provided. Total fluoroscopy time is 24 seconds w ith a total of 4 submitted images to PACS. Please see the operative/procedural note for further detai ls.
[2022-03-14] MEDS ORDERED: LORATADINE 10 MG TAB PO SCH (09:00)
[2022-03-14] MEDS ORDERED: NON FORMULARY DRUG (Turmeric Root Extract [Turmeric] 500 MG Capsule) PO SCH (09:00)
[2022-03-14] MEDS ORDERED: FINASTERIDE 5 MG TAB PO SCH (09:00)
[2022-03-14] MEDS ORDERED: CRANBERRY 450 MG PO SCH (09:00)
[2022-03-14] MEDS ORDERED: NON FORMULARY DRUG (Omeprazole [Omeprazole] 40 MG Capsule.Dr) PO SCH (09:00)
[2022-03-14] MEDS ORDERED: METOPROLOL TARTRATE 50 MG TAB PO SCH (09:00)
[2022-03-14] MEDS ORDERED: PIOGLITAZONE 30 MG TAB PO SCH (09:00)
[2022-03-14] MEDS ORDERED: NON FORMULARY DRUG (Cholecalciferol 1,000 UNIT Tab) PO SCH (09:00)
[2022-03-14] MEDS ORDERED: TROSPIUM CHLORIDE 20 MG TABLET PO SCH (09:00)
[2022-03-14] MEDS ORDERED: DULoxetine HCL 30 MG CAPSULE.DR PO SCH (09:00)
[2022-03-14] MEDS ORDERED: ASCORBIC ACID 500 MG TAB PO SCH (09:00)
[2022-03-14] MEDS ORDERED: NON FORMULARY DRUG (Multivit-Min/Fa/Lycopen/Lutein [Centrum Silver Men Tablet] 1 EACH Tabl PO SCH (09:00)
[2022-03-14 10:04] VITALS: BP 119/77; PULSE 65
[2022-03-14] MEDS ORDERED: ACETAMINOPHEN TAB 325 MG TAB PO SCH (12:00)
[2022-03-14] MEDS ORDERED: NON FORMULARY DRUG (Insulin Lispro [Humalog Kwikpen] 100 UNIT/ML Insuln.Pen) SQ SCH (12:30)
[2022-03-14] MEDS ORDERED: TAMSULOSIN 0.4 MG CAP.ER.24H PO SCH (21:00)
[2022-03-14] MEDS ORDERED: NON FORMULARY DRUG (Insulin Glargine,Hum.Rec.Anlog [Basaglar Kwikpen U-100] 100 UNIT/ML In SQ SCH (21:00)
[2022-03-14] MEDS ORDERED: NON FORMULARY DRUG (Latanoprost/Pf [Latanoprost 0.005% Eye Drop] 7.5 ML Ml) BOTH EYES SCH (21:00)
[2022-03-15] MEDS ORDERED: APIXABAN 5 MG TAB PO SCH (09:00)
== END 2022-03-14 10:27 | disposition home or self-care (01) ==
LOC: OR 06:23
PROVIDERS: ATTEND Orthopaedic Surgery Orthopaedic Surgery of the Spine
DX: S32.010A Wedge compression fracture of first lumbar vertebra, initial encounter for closed fracture (principal); I10 Essential (primary) hypertension; E78.5 Hyperlipidemia, unspecified; E10.69 Type 1 diabetes mellitus with other specified complication; F32.A Depression, unspecified; M47.817 Spondylosis without myelopathy or radiculopathy, lumbosacral region; M51.37 Other intervertebral disc degeneration, lumbosacral region; M47.816 Spondylosis without myelopathy or radiculopathy, lumbar region; M25.78 Osteophyte, vertebrae; I48.91 Unspecified atrial fibrillation; G47.33 Obstructive sleep apnea (adult) (pediatric); K21.9 Gastro-esophageal reflux disease without esophagitis; G45.9 Transient cerebral ischemic attack, unspecified; Z83.3 Family history of diabetes mellitus; Z97.3 Presence of spectacles and contact lenses; Z88.5 Allergy status to narcotic agent; Z90.49 Acquired absence of other specified parts of digestive tract; Z96.652 Presence of left artificial knee joint; Z82.49 Family history of ischemic heart disease and other diseases of the circulatory system; Z87.891 Personal history of nicotine dependence; Z86.59 Personal history of other mental and behavioral disorders; I25.10 Atherosclerotic heart disease of native coronary artery without angina pectoris; Z79.899 Other long term (current) drug therapy; X58.XXXA Exposure to other specified factors, initial encounter
CPT/HCPCS: 22514; 20225; 86900; 86901; 84132; 86850; 88307; 88311; 72100; C1713; J2250; J0690; J2405; J3010; J2370; J2704; J1170; Q9966; J2001

== ENCOUNTER → 2022-04-05 | Outpatient (CLI) | payer MEDICARE ==
[2022-04-05 23:37] LABS: Basophils # (A) 0.07 X 10*3/uL (0.00-0.10); Basophils % (A) 0.6 %; Eosinophils % (A) 0.8 %; HCT 41.4 % (39.6-50.0); HGB 12.9 g/dL (13.0-17.0); Immature Grans, Automated 1.2 %; Lymphocytes # (A) 0.94 X 10*3/uL (0.90-5.00); Lymphocytes % (A) 7.4 %; MCH 28.7 pg (27.0-32.0); MCHC 31.2 g/dL (32.0-37.0); Mean Platelet Volume 12.3 fL (9.5-12.2); Monocytes # (A) 0.79 X 10*3/uL (0.20-1.00); Monocytes % (A) 6.2 %; NRBC Per 100 WBC 0 /100 WBCS (0.0-0.0); Neutrophils % (A) 83.8 %; Platelet Count 460 X 10*3/uL (140-440); RDW 14.5 % (11.5-14.5); WBC 12.65 X 10*3/uL (4.50-10.00)
[2022-04-06 04:09] LABS: African American GFR (CKD) 71.3 (60.0-200.0); Albumin/Globulin Ratio 1.02 (1.60-3.17); Anion Gap 15.9 mmol/L (10.00-18.00); BUN/Creat Ratio 35.73 Ratio (12.00-20.00); Blood Urea Nitrogen 41.8 mg/dL (9.0-27.0); Calcium 10.2 mg/dL (8.7-10.3); Carbon Dioxide 11.3 mmol/L (20.0-27.5); Globulin 3.9 g/dL (1.6-3.3); Magnesium 2.2 mg/dL (1.5-2.4); Non-African American GFR(CKD) 61.5 (60.0-200.0); Potassium 5.9 mmol/L (3.5-5.5); Total Bilirubin 0.3 mg/dL (0.30-1.20); Total Protein 7.9 g/dL (6.2-8.2)
== END | disposition home or self-care (01) ==
LOC: LABWHC1 13:39
PROVIDERS: ATTEND Internal Medicine Geriatric Medicine
DX: N17.9 Acute kidney failure, unspecified (principal); D75.81 Myelofibrosis; R55 Syncope and collapse
CPT/HCPCS: 36415; 80053; 83735; 84443; 85025

== ENCOUNTER 2022-05-06 21:12 | Inpatient (IN) | payer MEDICARE ==
[2022-05-06] MEDS ORDERED: ONDANSETRON 4 MG/2 ML VIAL IVP STA (21:33)
[2022-05-06] MEDS ORDERED: KETOROLAC 15 MG/ML 1 ML VIAL IVP STA (21:33)
[2022-05-06] MEDS ORDERED: SODIUM CHLORIDE 0.9% 1,000 ML IV STA (21:33)
--- NOTE | 2022-05-06 21:34 | ED ---
Fever HPI - General Chief Complaint: Fever Stated Complaint: Fever,Weakness Time Seen by Provider: 05/06/22 21:27 Source: patient, family, RN notes reviewed, old records reviewed Mode of arrival: wheelchair Limitations: no limitations - History of Present Illness Initial Comments: This is a 71-year-old male to the emergency department for evaluation. Patient presents today for evaluation regards to fevers. Fevers feeling weak and fatigued not feeling well. Patient has been recently going through a significant workup for underlying cancer. Patient unsure if significant results. No recent change in treatment in medications. Patient feeling weak and feverish with a fever the 10-103 area has no other complaints MD Complaint: fever, malaise, weakness -: days(s) Temperature Source: subjective Context: sick contacts, recent travel, recent procedure Associated Symptoms: chills, myalgias Treatments Prior to Arrival: Acetaminophen - Related Data Home Medications Medication Instructions Recorded Confirmed Finasteride [Proscar] 5 mg PO DAILY 02/06/17 05/06/22 Multivit-Min/FA/Lycopen/Lutein 0.5 tab PO BID 02/06/17 05/06/22 [Centrum Silver Men Tablet] Tamsulosin [Flomax] 0.4 mg PO HS 02/06/17 05/06/22 Omeprazole 40 mg PO QAM 12/05/18 05/06/22 Loratadine [Claritin] 10 mg PO DAILY 08/29/20 05/06/22 Turmeric Root Extract [Turmeric] 1,000 mg PO BID 08/29/20 05/06/22 Apixaban [Eliquis] 5 mg PO BID 01/12/22 05/06/22 Ascorbic Acid [Vitamin C] 500 mg PO DAILY 01/12/22 05/06/22 Cranberry 450mg 1 tab PO HS 01/12/22 05/06/22 Latanoprost/Pf [Latanoprost 0.005% 1 drop BOTH EYES HS 01/12/22 05/06/22 Eye Drop] DULoxetine HCL [Cymbalta] 90 mg PO DAILY 01/15/22 05/06/22 Insulin Glargine,Hum.rec.anlog 35 unit SQ HS 03/09/22 05/06/22 [Basaglar Kwikpen U-100] Insulin Lispro [humaLOG Kwikpen] 10 unit SQ TID-W/MEALS 03/09/22 05/06/22 Pioglitazone [Actos] 30 mg PO MOWEFRSA 03/09/22 05/06/22 Cholecalciferol [Vitamin D3 (25 25 mcg PO DAILY 05/06/22 05/06/22 Mcg = 1000 Iu)] Ferrous Sulfate [Feosol] 325 mg PO HS 05/06/22 05/06/22 Loperamide [Imodium] 2 - 4 mg PO QID PRN 05/06/22 05/06/22 Mirabegron [Myrbetriq] 50 mg PO DIRECTED 05/06/22 05/06/22 Previous Rx's Medication Instructions Recorded Melatonin 5 mg PO HS PRN tablet 02/14/21 Acetaminophen Tab [Tylenol] 325 mg PO Q6HR PRN tab 01/18/22 Metoprolol Tartrate [Lopressor] 50 mg PO BID 30 Days #60 tab 01/18/22 traMADol HCl [Ultram] 50 mg PO Q6HR PRN 3 Days #12 tab 03/14/22 Allergies Allergy/AdvReac Type Severity Reaction Status Date / Time codeine Allergy Rash/Hives Verified 05/06/22 21:19 morphine Allergy Rash/Hives Verified 05/06/22 21:19 Review of Systems ROS Statement: Those systems with pertinent positive or pertinent negative responses have been documented in the HPI. ROS Other: All systems not noted in ROS Statement are negative. 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, IDDM type II, ulcerative colitis/had J pouch and later ileostomy, chronic diarrhea/dehydration, ileal polyps, recurrent neph rolithiasis, pyelonephritis, BPH, ANGEL occasionally wears Cpap, chronic low iron, bilaterally SAXMAN/aides, takes eye drops to prevent glaucoma History of Any Multi-Drug Resistant Organisms: None Reported Past Surgical History: Appendectomy, Bowel Resection, Coronary Bypass/CABG, Heart Catheterization, Hernia Repair, Joint Replacement Additional Past Surgical History / Comment(s): 2020 CABG with 4 vessel bypass, colectomy with ileostomy, previous J pouch, colonoscopies, EGD, abdominal hernia/mesh, lithotripsy with R ureteral stent, L partial knee arthroplasty, bilateral cataract removal/lens implants, L eye surgery for detached retina. Past Anesthesia/Blood Transfusion Reactions: No Reported Reaction Additional Past Anesthesia/Blood Transfusion Reaction / Comment(s): PATIENT HAD SURGERY FOR LEFT EYE DETACHED RETINA AND DEVELOPED GAS BUBBLE IN L EYE. HE WAS INSTRUCTED TO NOT RECEIVE NITROUS OXIDE OR RIDE IN A PLANE UNTIL GAS BUBBLE IS GONE. Past Psychological History: Depression Smoking Status: Former smoker Past Alcohol Use History: None Reported Past Drug Use History: None Reported - Past Family History Mother Family Medical History: Cancer, Diabetes Mellitus Additional Family Medical History / Comment(s): Mother at age 84 from [place] Father Additional Family Medical History / Comment(s): Father is with history of coronary artery disease. Brother(s) Family Medical History: Coronary Artery Disease (CAD), Vascular Disorder Additional Family Medical History / Comment(s): Patient has 4 brothers. Two at the age of 44 from coronary artery disease with history of tobacco use and alcohol dependence. One from aneurysm in the chest. General Exam Limitations: no limitations General appearance: alert, in no apparent distress Head exam: Present: atraumatic, normocephalic, normal inspection Eye exam: Present: normal appearance, PERRL, EOMI. Absent: scleral icterus, conjunctival injection, periorbital swelling ENT exam: Present: normal exam, mucous membranes moist Neck exam: Present: normal inspection. Absent: tenderness, meningismus, lymphadenopathy Respiratory exam: Present: normal lung sounds bilaterally. Absent: respiratory distress, wheezes, rales, rhonchi, stridor Cardiovascular Exam: Present: normal rhythm, tachycardia, normal heart sounds. Absent: systolic murmur, diastolic murmur, rubs, gallop, clicks GI/Abdominal exam: Present: soft, normal bowel sounds. Absent: distended, tenderness, guarding, rebound, rigid Extremities exam: Present: normal inspection, full ROM, normal capillary refill. Absent: tenderness, pedal edema, joint swelling, calf tenderness Back exam: Present: normal inspection Neurological exam: Present: alert, oriented X3, CN II-XII intact Psychiatric exam: Present: normal affect, normal mood Skin exam: Present: warm, dry, intact, normal color. Absent: rash Course Vital Signs 05/06/22 05/06/22 05/06/22 21:19 21:32 22:14 Temperature 98.0 F Pulse Rate 113 H 109 H 93 Respiratory 18 16 Rate Blood Pressure 77/49 78/68 79/56 O2 Sat by Pulse 96 Oximetry 05/06/22 05/07/22 23:42 00:00 Temperature Pulse Rate 90 Respiratory 18 Rate Blood Pressure 79/58 81/58 O2 Sat by Pulse 93 L Oximetry - Reevaluation(s) Reevaluation #1: 05/06/22 22:20 Medical records reviewed Reevaluation #2: 05/07/22 00:43 Patient family informed of results and questions answered Reevaluation #3: 05/07/22 00:43 Patient still hydration - Consultations Consultation #1: Spoke with admitting physicians who agree to admit this patient Procedures - Sepsis Sepsis Focused Exam #1 Time Sepsis Criteria Met: 00:45 Sepsis Focused Exam Date: 05/07/22 Sepsis Focused Exam Time: 03:30 Sepsis Focused Exam Complete: Yes Vital Signs & RN Notes Reviewed: Yes Capillary Refill: < 2 Seconds: Fingers, Toes Peripheral Pulses: Normal: Radial (R), Radial (L), Posterior Tibialis (R), Posterior Tibialis (L), Dorsalis Pedis (R), Dorsalis Pedis (L) Skin Color: Normal for Patient Respiratory Exam: normal lung sounds Cardiovascular Exam: regular rate Medical Decision Making - Medical Decision Making 71 male to the emergency department for evaluation patient presents today with fever severe weakness significant weight loss as of late, anorexia. Patient will be admitted for monitoring of fever prophylactic antibiotics significant hydration monitoring of sepsis no sources noted for septic symptoms - Lab Data Result diagrams: 05/06/22 21:50 05/06/22 21:50 Lab Results 05/06/22 05/06/22 05/06/22 Range/Units 21:50 21:50 21:50 WBC 17.5 H (3.8-10.6) k/uL RBC 4.10 L (4.30-5.90) m/uL Hgb 12.0 L (13.0-17.5) gm/dL Hct 35.6 L (39.0-53.0) % MCV 87.0 (80.0-100.0) fL MCH 29.3 (25.0-35.0) pg MCHC 33.6 (31.0-37.0) g/dL RDW 14.6 (11.5-15.5) % Plt Count 222 (150-450) k/uL MPV 10.1 Neutrophils % 91 % Lymphocytes % 4 % Monocytes % 4 % Eosinophils % 1 % Basophils % 0 % Neutrophils # 15.9 H (1.3-7.7) k/uL Lymphocytes # 0.7 L (1.0-4.8) k/uL Monocytes # 0.6 (0-1.0) k/uL Eosinophils # 0.1 (0-0.7) k/uL Basophils # 0.0 (0-0.2) k/uL PT 11.0 (9.0-12.0) sec INR 1.0 (<1.2) APTT 29.8 (22.0-30.0) sec Sodium 124 L (137-145) mmol/L Potassium 4.9 (3.5-5.1) mmol/L Chloride 98 (98-107) mmol/L Carbon Dioxide 14 L (22-30) mmol/L Anion Gap 12 mmol/L BUN 40 H (9-20) mg/dL Creatinine 1.61 H (0.66-1.25) mg/dL Est GFR (CKD-EPI)AfAm 49 (>60 ml/min/1.73 sqM) Est GFR (CKD-EPI)NonAf 42 (>60 ml/min/1.73 sqM) Glucose 175 H (74-99) mg/dL Plasma Lactic Acid Chris (0.7-2.0) mmol/L Calcium 9.0 (8.4-10.2) mg/dL Phosphorus 3.8 (2.5-4.5) mg/dL Magnesium 1.9 (1.6-2.3) mg/dL Total Bilirubin 0.7 (0.2-1.3) mg/dL AST 35 (17-59) U/L ALT 23 (4-49) U/L Alkaline Phosphatase 169 H (38-126) U/L Troponin I (0.000-0.034) ng/mL NT-Pro-B Natriuret Pep pg/mL Total Protein 7.1 (6.3-8.2) g/dL Albumin 3.8 (3.5-5.0) g/dL TSH 2.150 (0.465-4.680) mIU/L Urine Color Urine Appearance (Clear) Urine pH (5.0-8.0) Ur Specific [place] (1.001-1.035) Urine Protein (Negative) Urine Glucose (UA) (Negative) Urine Ketones (Negative) Urine Blood (Negative) Urine Nitrite (Negative) Urine Bilirubin (Negative) Urine Urobilinogen (<2.0) mg/dL Ur Leukocyte Esterase (Negative) Urine WBC (0-5) /hpf Amorphous Sediment (None) /hpf Urine Bacteria (None) /hpf Cellular Casts (0) /lpf Hyaline Casts (0-2) /lpf Granular Casts (0) /lpf Urine Mucus (None) /hpf Influenza Type A (PCR) (Not Detectd) Influenza Type B (PCR) (Not Detectd) RSV (PCR) (Not Detectd) SARS-CoV-2 (PCR) (Not Detectd) 05/06/22 05/06/22 05/06/22 Range/Units 21:50 21:50 21:50 WBC (3.8-10.6) k/uL RBC (4.30-5.90) m/uL Hgb (13.0-17.5) gm/dL Hct (39.0-53.0) % MCV (80.0-100.0) fL MCH (25.0-35.0) pg MCHC (31.0-37.0) g/dL RDW (11.5-15.5) % Plt Count (150-450) k/uL MPV Neutrophils % % Lymphocytes % % Monocytes % % Eosinophils % % Basophils % % Neutrophils # (1.3-7.7) k/uL Lymphocytes # (1.0-4.8) k/uL Monocytes # (0-1.0) k/uL Eosinophils # (0-0.7) k/uL Basophils # (0-0.2) k/uL PT (9.0-12.0) sec INR (<1.2) APTT (22.0-30.0) sec Sodium (137-145) mmol/L Potassium (3.5-5.1) mmol/L Chloride (98-107) mmol/L Carbon Dioxide (22-30) mmol/L Anion Gap mmol/L BUN (9-20) mg/dL Creatinine (0.66-1.25) mg/dL Est GFR (CKD-EPI)AfAm (>60 ml/min/1.73 sqM) Est GFR (CKD-EPI)NonAf (>60 ml/min/1.73 sqM) Glucose (74-99) mg/dL Plasma Lactic Acid Chris 1.2 (0.7-2.0) mmol/L Calcium (8.4-10.2) mg/dL Phosphorus (2.5-4.5) mg/dL Magnesium (1.6-2.3) mg/dL Total Bilirubin (0.2-1.3) mg/dL AST (17-59) U/L ALT (4-49) U/L Alkaline Phosphatase (38-126) U/L Troponin I <0.012 (0.000-0.034) ng/mL NT-Pro-B Natriuret Pep 4100 pg/mL Total Protein (6.3-8.2) g/dL Albumin (3.5-5.0) g/dL TSH (0.465-4.680) mIU/L Urine Color Urine Appearance (Clear) Urine pH (5.0-8.0) Ur Specific [place] (1.001-1.035) Urine Protein (Negative) Urine Glucose (UA) (Negative) Urine Ketones (Negative) Urine Blood (Negative) Urine Nitrite (Negative) Urine Bilirubin (Negative) Urine Urobilinogen (<2.0) mg/dL Ur Leukocyte Esterase (Negative) Urine WBC (0-5) /hpf Amorphous Sediment (None) /hpf Urine Bacteria (None) /hpf Cellular Casts (0) /lpf Hyaline Casts (0-2) /lpf Granular Casts (0) /lpf Urine Mucus (None) /hpf Influenza Type A (PCR) (Not Detectd) Influenza Type B (PCR) (Not Detectd) RSV (PCR) (Not Detectd) SARS-CoV-2 (PCR) (Not Detectd) 05/06/22 05/07/22 Range/Units 21:50 00:17 WBC (3.8-10.6) k/uL RBC (4.30-5.90) m/uL Hgb (13.0-17.5) gm/dL Hct (39.0-53.0) % MCV (80.0-100.0) fL MCH (25.0-35.0) pg MCHC (31.0-37.0) g/dL RDW (11.5-15.5) % Plt Count (150-450) k/uL MPV Neutrophils % % Lymphocytes % % Monocytes % % Eosinophils % % Basophils % % Neutrophils # (1.3-7.7) k/uL Lymphocytes # (1.0-4.8) k/uL Monocytes # (0-1.0) k/uL Eosinophils # (0-0.7) k/uL Basophils # (0-0.2) k/uL PT (9.0-12.0) sec INR (<1.2) APTT (22.0-30.0) sec Sodium (137-145) mmol/L Potassium (3.5-5.1) mmol/L Chloride (98-107) mmol/L Carbon Dioxide (22-30) mmol/L Anion Gap mmol/L BUN (9-20) mg/dL Creatinine (0.66-1.25) mg/dL Est GFR (CKD-EPI)AfAm (>60 ml/min/1.73 sqM) Est GFR (CKD-EPI)NonAf (>60 ml/min/1.73 sqM) Glucose (74-99) mg/dL Plasma Lactic Acid Chris (0.7-2.0) mmol/L Calcium (8.4-10.2) mg/dL Phosphorus (2.5-4.5) mg/dL Magnesium (1.6-2.3) mg/dL Total Bilirubin (0.2-1.3) mg/dL AST (17-59) U/L ALT (4-49) U/L Alkaline Phosphatase (38-126) U/L Troponin I (0.000-0.034) ng/mL NT-Pro-B Natriuret Pep pg/mL Total Protein (6.3-8.2) g/dL Albumin (3.5-5.0) g/dL TSH (0.465-4.680) mIU/L Urine Color Yellow Urine Appearance Cloudy (Clear) Urine pH 5.5 (5.0-8.0) Ur Specific [place] 1.009 (1.001-1.035) Urine Protein Trace H (Negative) Urine Glucose (UA) Negative (Negative) Urine Ketones Negative (Negative) Urine Blood Negative (Negative) Urine Nitrite Negative (Negative) Urine Bilirubin Negative (Negative) Urine Urobilinogen <2.0 (<2.0) mg/dL Ur Leukocyte Esterase Negative (Negative) Urine WBC 1 (0-5) /hpf Amorphous Sediment Rare H (None) /hpf Urine Bacteria Rare H (None) /hpf Cellular Casts 3 (0) /lpf Hyaline Casts 3 H (0-2) /lpf Granular Casts 4 (0) /lpf Urine Mucus Rare H (None) /hpf Influenza Type A (PCR) Not Detected (Not Detectd) Influenza Type B (PCR) Not Detected (Not Detectd) RSV (PCR) Not Detected (Not Detectd) SARS-CoV-2 (PCR) Not Detected (Not Detectd) - EKG Data -: EKG Interpreted by Me (EKG sinus tachycardia 102 UT 198 QRS 97 QTC 380) - Radiology Data Radiology results: report reviewed (Chest x-rays negative for acute disease), image reviewed Critical Care Time Critical Care Time: Yes Total Critical Care Time: 31 Disposition Clinical Impression: Generalized weakness, Anemia, Fever Disposition: ADMITTED IP TO THIS [facility] Condition: Fair Is patient prescribed a controlled substance at d/c from ED?: No Referrals: Miguel Bautista MD [Primary Care Provider] - 1-2 days Time of Disposition: 00:50
[2022-05-06 22:04] LABS: Basophils % (A) 0 %; Eosinophils # (A) 0.1 k/uL (0-0.7); Eosinophils % (A) 1 %; HCT 35.6 % (39.0-53.0); Lymphocytes # (A) 0.7 k/uL (1.0-4.8); Lymphocytes % (A) 4 %; MCH 29.3 pg (25.0-35.0); MCHC 33.6 g/dL (31.0-37.0); Mean Platelet Volume 10.1; Monocytes # (A) 0.6 k/uL (0-1.0); Monocytes % (A) 4 %; Neutrophils # (A) 15.9 k/uL (1.3-7.7); Neutrophils % (A) 91 %; Platelet Count 222 k/uL (150-450); RDW 14.6 % (11.5-15.5); WBC 17.5 k/uL (3.8-10.6)
[2022-05-06 22:15] LABS: Potassium 4.9 mmol/L (3.5-5.1)
[2022-05-06 22:16] LABS: Albumin 3.8 g/dL (3.5-5.0); Magnesium 1.9 mg/dL (1.6-2.3); Partial Thromboplastin Time 29.8 sec (22.0-30.0); Phosphorus 3.8 mg/dL (2.5-4.5); Total Bilirubin 0.7 mg/dL (0.2-1.3); Total Protein 7.1 g/dL (6.3-8.2)
--- NOTE | 2022-05-06 23:12 | XR ---
EXAMINATION TYPE: XR chest 1V portable DATE OF EXAM: 05/06/2022 COMPARISON: 02/25/2022 HISTORY: Fever. Weakness. TECHNIQUE: FINDINGS: Heart is normal. Lungs are clear of infiltrate. There are sternal wires. Costophrenic angle s are clear. There are no hilar masses. There are chest leads. IMPRESSION: No active cardiopulmonary disease. No change.
[2022-05-07 00:35] LABS: Amorphous Sediment,Urine Rare /hpf; Appearance,Urine Cloudy (Clear); Bacteria,Urine Rare /hpf; Bilirubin,Urine Negative (Negative); Blood,Urine Negative (Negative); Cellular Casts,Urine 3 /lpf (0); Color,Urine Yellow; Glucose,Urine (UA) Negative (Negative); Granular Casts,Urine 4 /lpf (0); Hyaline Casts,Urine 3 /lpf (0-2); Ketones,Urine Negative (Negative); Leukocyte Esterase,Urine Negative (Negative); Mucus,Urine Rare /hpf; Nitrite,Urine Negative (Negative); PH, Urine 5.5 (5.0-8.0); Protein,Urine Trace (Negative); Specific Gravity,Urine 1.009 (1.001-1.035); Urobilinogen,Urine <2.0 mg/dL (<2.0); WBC,Urine 1 /hpf (0-5)
[2022-05-07] MEDS ORDERED: SODIUM CHLORIDE 0.9% 1,000 ML IV STA ×2 (00:38)
[2022-05-07] MEDS ORDERED: NALOXONE 0.4 MG/ML 1 ML VIAL IV PRN (00:38)
[2022-05-07] MEDS ORDERED: ONDANSETRON 4 MG/2 ML VIAL IVP PRN (00:38)
[2022-05-07] MEDS ORDERED: SODIUM CHLORIDE 0.9% 500 ML 500 ML IV STA (00:38)
[2022-05-07] MEDS: ACETAMINOPHEN TAB 500 MG TAB PO STA ×2 (04:41→06:38)
[2022-05-07] MEDS ORDERED: DEXTROSE 50% SYRINGE 50 ML IVP PRN ×2 (06:34)
--- NOTE | 2022-05-07 07:11 | P.HPIM ---
History of Present Illness This is a pleasant 71 years old male with past medical history of diabetes mellitus, hypertension, chronic anemia, atrial fibrillation on Eliquis blood thinner at home Patient states that she has been losing weight over several months with decreased appetite, he lost about 50 pounds and his PCP Dr. Lord is working him up, he has scheduled PET scan on May 13. Over the last 3 weeks this been feeling more weak with low appetite. Over the last few days he's been feeling feverish and his checked his temperature at home and he states it was between 101 and 103. He has some coughing and shortness of breath but no chest pain, no GI symptoms like diarrhea or vomiting. 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 He complains from urgency and sometimes dysuria. No neurological symptoms like headache or dizziness or weakness or numbness. He denies Smoking alcohol or illicit drug Vitals reviewed since admission he has no fever. Patient was hypotensive on admission 83/63 and currently blood pressure 105/69. He is tachycardic 118. He is saturating 94% on room air. showing leukocytosis 17.5, he has chronic leukocytosis since 02/08/2022 at 12.8, at times at 16.6 and then 12.6. Hemoglobin 12. Sodium 124. Acute kidney injury most likely prerenal creatinine 1.6, baseline 1.2 . Liver enzymes not elevated. Urine analysis is negative for infection. Viral test including howell, confluence and RSV viruses are undetected Chest x-ray: No active pulmonary process On admission her received ceftriaxone once daily, Toradol 1 and more than 2.5 L of normal saline. He was admitted with oncology and ID team consult. Review of Systems Review of systems -CONSTITUTIONAL: As above HEENT: No recent visual problems or hearing problems. Denied any sore throat. CARDIOVASCULAR: No orthopnea, PND, no palpitations, no syncope. PULMONARY: No shortness of breath, no cough, no hemoptysis. GASTROINTESTINAL: No diarrhea, no nausea, no vomiting, no abdominal pain. Normoactive bowel sounds. NEUROLOGICAL: No headaches, no weakness, no numbness. HEMATOLOGICAL: Denies any bleeding or petechiae. GENITOURINARY: Denies any burning micturition, frequency, or urgency. MUSCULOSKELETAL/RHEUMATOLOGICAL: Denies any joint pain, swelling, or any muscle pain. ENDOCRINE: Denies any polyuria or polydipsia. 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, IDDM type II, ulcerative colitis/had J pouch and later ileostomy, chronic diarrhea/dehydration, ileal polyps, recurrent nephrolithiasis, pyelonephritis, BPH, ANGEL occasionally wears Cpap, chronic low iron, bilaterally MOAPA/aides, takes eye drops to prevent glaucoma History of Any Multi-Drug Resistant Organisms: None Reported Past Surgical History: Appendectomy, Bowel Resection, Coronary Bypass/CABG, Heart Catheterization, Hernia Repair, Joint Replacement Additional Past Surgical History / Comment(s): 2020 CABG with 4 vessel bypass, colectomy with ileostomy, previous J pouch, colonoscopies, EGD, abdominal hernia/mesh, lithotripsy with R ureteral stent, L partial knee arthroplasty, bilateral cataract removal/lens implants, L eye surgery for detached retina. Past Anesthesia/Blood Transfusion Reactions: No Reported Reaction Additional Past Anesthesia/Blood Transfusion Reaction / Comment(s): PATIENT HAD SURGERY FOR LEFT EYE DETACHED RETINA AND DEVELOPED GAS BUBBLE IN L EYE. HE WAS INSTRUCTED TO NOT RECEIVE NITROUS OXIDE OR RIDE IN A PLANE UNTIL GAS BUBBLE IS GONE. Past Psychological History: Depression Smoking Status: Former smoker Past Alcohol Use History: None Reported Past Drug Use History: None Reported - Past Family History Mother Family Medical History: Cancer, Diabetes Mellitus Additional Family Medical History / Comment(s): Mother at age 84 from [place] Father Additional Family Medical History / Comment(s): Father is with history of coronary artery disease. Brother(s) Family Medical History: Coronary Artery Disease (CAD), Vascular Disorder Additional Family Medical History / Comment(s): Patient has 4 brothers. Two at the age of 44 from coronary artery disease with history of tobacco use and alcohol dependence. One from aneurysm in the chest. Medications and Allergies Home Medications Medication Instructions Recorded Confirmed Type Finasteride [Proscar] 5 mg PO DAILY 02/06/17 05/06/22 History Multivit-Min/FA/Lycopen/Lutein 0.5 tab PO BID 02/06/17 05/06/22 History [Centrum Silver Men Tablet] Tamsulosin [Flomax] 0.4 mg PO HS 02/06/17 05/06/22 History Omeprazole 40 mg PO QAM 12/05/18 05/06/22 History Loratadine [Claritin] 10 mg PO DAILY 08/29/20 05/06/22 History Turmeric Root Extract [Turmeric] 1,000 mg PO BID 08/29/20 05/06/22 History Melatonin 5 mg PO HS PRN tablet 02/14/21 05/06/22 Rx Apixaban [Eliquis] 5 mg PO BID 01/12/22 05/06/22 History Ascorbic Acid [Vitamin C] 500 mg PO DAILY 01/12/22 05/06/22 History Cranberry 450mg 1 tab PO HS 01/12/22 05/06/22 History Latanoprost/Pf [Latanoprost 0.005% 1 drop BOTH EYES HS 01/12/22 05/06/22 History Eye Drop] DULoxetine HCL [Cymbalta] 90 mg PO DAILY 01/15/22 05/06/22 History Acetaminophen Tab [Tylenol] 325 mg PO Q6HR PRN tab 01/18/22 05/06/22 Rx Metoprolol Tartrate [Lopressor] 50 mg PO BID 30 Days #60 tab 01/18/22 05/06/22 Rx Insulin Glargine,Hum.rec.anlog 35 unit SQ HS 03/09/22 05/06/22 History [Basaglar Kwikpen U-100] Insulin Lispro [humaLOG Kwikpen] 10 unit SQ TID-W/MEALS 03/09/22 05/06/22 History Pioglitazone [Actos] 30 mg PO MOWEFRSA 03/09/22 05/06/22 History traMADol HCl [Ultram] 50 mg PO Q6HR PRN 3 Days #12 tab 03/14/22 05/06/22 Rx Cholecalciferol [Vitamin D3 (25 25 mcg PO DAILY 05/06/22 05/06/22 History Mcg = 1000 Iu)] Ferrous Sulfate [Feosol] 325 mg PO HS 05/06/22 05/06/22 History Loperamide [Imodium] 2 - 4 mg PO QID PRN 05/06/22 05/06/22 History Mirabegron [Myrbetriq] 50 mg PO DIRECTED 05/06/22 05/06/22 History Allergies Allergy/AdvReac Type Severity Reaction Status Date / Time codeine Allergy Rash/Hives Verified 05/06/22 21:19 morphine Allergy Rash/Hives Verified 05/06/22 21:19 Physical Exam Vitals: Vital Signs Temp Pulse Resp BP Pulse Ox 05/07/22 06:12 118 H 18 105/69 05/07/22 05:01 104 H 20 93/74 94 L 05/07/22 04:41 97.6 F 05/07/22 04:01 80 18 81/58 05/07/22 02:14 88 83/63 05/07/22 01:34 82 18 87/44 98 05/07/22 00:53 97.8 F 05/07/22 00:00 90 18 81/58 93 L 05/06/22 23:42 79/58 05/06/22 22:14 93 16 79/56 05/06/22 21:32 109 H 78/68 05/06/22 21:19 98.0 F 113 H 18 77/49 96 Intake and Output 05/06/22 05/06/22 05/07/22 14:59 22:59 06:59 Output Total 902 Balance -902 Output: Urine 700 Stool 2 Other 200 Other: Weight 67.132 kg -GENERAL: The patient is alert and oriented x3, not in any acute distress. Thin built HEENT: Pupils are round and equally reacting to light. EOMI. No scleral icterus. No conjunctival pallor. Normocephalic, atraumatic. No pharyngeal erythema. No thyromegaly. CARDIOVASCULAR: S1 and S2 present. No murmurs, rubs, or gallops. PULMONARY: Chest is clear to auscultation, no wheezing or crackles. -ABDOMEN: Soft, nontender, nondistended, normoactive bowel sounds. No palpable organomegaly. right ileostomy with empty bag MUSCULOSKELETAL: No joint swelling or deformity. EXTREMITIES: No cyanosis, clubbing, or pedal edema. NEUROLOGICAL: Gross neurological examination did not reveal any focal deficits. SKIN: No rashes. no petechiae. Results CBC & Chem 7: 05/06/22 21:50 05/06/22 21:50 Labs: Abnormal Lab Results - Last 24 Hours (Table) 05/06/22 05/06/22 05/07/22 Range/Units 21:50 21:50 00:17 WBC 17.5 H (3.8-10.6) k/uL RBC 4.10 L (4.30-5.90) m/uL Hgb 12.0 L (13.0-17.5) gm/dL Hct 35.6 L (39.0-53.0) % Neutrophils # 15.9 H (1.3-7.7) k/uL Lymphocytes # 0.7 L (1.0-4.8) k/uL Sodium 124 L (137-145) mmol/L Carbon Dioxide 14 L (22-30) mmol/L BUN 40 H (9-20) mg/dL Creatinine 1.61 H (0.66-1.25) mg/dL Glucose 175 H (74-99) mg/dL Alkaline Phosphatase 169 H (38-126) U/L Urine Protein Trace H (Negative) Amorphous Sediment Rare H (None) /hpf Urine Bacteria Rare H (None) /hpf Hyaline Casts 3 H (0-2) /lpf Urine Mucus Rare H (None) /hpf Assessment and Plan Assessment: Mildly worsening leukocytosis. Patient also reports subjective feeling of fever, no fever documented.. Recent loss of weight with low appetite, undergoing workup for possible cancer, mostly related to dehydration Hypovolemic hyponatremia acute kidney injury on chronic kidney disease stage III, most likely prerenal. atrial fibrillation on Eliquis blood thinner at home Diabetes mellitus Hypertension Chronic anemia Plan: Continue with antibiotic ceftriaxone Follow-up culture results, including blood culture. Continue with IV hydration Consult follow up with ID and oncology team Cold blood pressure medications including metoprolol 50 mg twice daily Lantus 35 units at bedtime and insulin lispro 10 units with meals. We will start with cautious Levemir 20 units at bedtime and 5 units with meals, with insulin sliding scale Labs and medication were reviewed.. Continue same treatment. Continue with symptomatic treatment. Resume home medication. Monitor labs and vitals. DVT and GI prophylaxis. Further recommendations as per clinical course of the patient DVT prophylaxis: Eliquis GI prophylaxis: Ppi PT/OT: Pending Prognosis is guarded
[2022-05-07 07:39] LABS: Basophils % (A) 0 %; Eosinophils % (A) 0 %; HCT 32.7 % (39.0-53.0); HGB 10.6 gm/dL (13.0-17.5); Hypochromasia Slight; Lymphocytes # (A) 0.2 k/uL (1.0-4.8); Lymphocytes % (A) 2 %; MCH 28.8 pg (25.0-35.0); MCHC 32.3 g/dL (31.0-37.0); MCV 89.3 fL (80.0-100.0); Mean Platelet Volume 10.4; Monocytes # (A) 0.4 k/uL (0-1.0); Monocytes % (A) 3 %; Neutrophils # (A) 12.2 k/uL (1.3-7.7); Neutrophils % (A) 94 %; Platelet Count 167 k/uL (150-450); RBC 3.66 m/uL (4.30-5.90); WBC 13.1 k/uL (3.8-10.6)
[2022-05-07 07:51] LABS: Albumin 2.9 g/dL (3.5-5.0); Calcium 7.7 mg/dL (8.4-10.2); Magnesium 1.8 mg/dL (1.6-2.3); Potassium 4.2 mmol/L (3.5-5.1); Total Bilirubin 0.5 mg/dL (0.2-1.3); Total Protein 5.7 g/dL (6.3-8.2)
[2022-05-07 08:51] LABS: Glucose,Whole Blood 148 mg/dL (70-110)
[2022-05-07] MEDS: INSULIN ASPART (NovoLOG) 100 UNIT/ML VIAL SQ SCH ×4 (08:54→23:29)
[2022-05-07] MEDS: SODIUM CHLORIDE 0.9% 1,000 ML IV SCH (08:55)
[2022-05-07] MEDS: APIXABAN 5 MG TAB PO SCH ×2 (10:36→23:28)
[2022-05-07] MEDS: DULoxetine HCL 30 MG CAPSULE.DR PO SCH (10:36)
[2022-05-07] MEDS: LORATADINE 10 MG TAB PO SCH (10:36)
[2022-05-07] MEDS: FINASTERIDE 5 MG TAB PO SCH (10:36)
[2022-05-07] MEDS: PANTOPRAZOLE 40 MG/10 ML VIAL IVP SCH (10:38)
[2022-05-07 12:39] LABS: Glucose,Whole Blood 118 mg/dL (70-110)
[2022-05-07 12:58] LABS: Appearance,Urine Clear (Clear); Bilirubin,Urine Negative (Negative); Blood,Urine Negative (Negative); Color,Urine Yellow; Glucose,Urine (UA) Negative (Negative); Ketones,Urine Negative (Negative); Leukocyte Esterase,Urine Negative (Negative); Nitrite,Urine Negative (Negative); Protein,Urine Trace (Negative); Specific Gravity,Urine 1.013 (1.001-1.035); Urobilinogen,Urine <2.0 mg/dL (<2.0)
[2022-05-07] MEDS: ACETAMINOPHEN TAB 325 MG TAB PO PRN (14:34)
[2022-05-07 14:36] LABS: Reticulocyte % 1.7 % (0.5-2.0)
[2022-05-07 14:45] LABS: Amylase 38 U/L (30-110); LDH 309 U/L (313-618); Lipase 88 U/L (23-300)
[2022-05-07 17:50] LABS: Glucose,Whole Blood 213 mg/dL (70-110)
--- NOTE | 2022-05-07 19:53 | P.CONS ---
History of Present Illness - Reason for Consult Consult date: 05/07/22 Oncologic Care Requesting physician: Diego Arana - History of Present Illness Mr Morse physical pleasant white male, with him. Past medical and surgical history. The patient had a long-standing history of ulcerative colitis, and ultimately required total colectomy in 2018 with creation of ileostomy. He states that he was doing quite well with that until . At that time he developed significant increase in his ostomy output, leading to multiple symptoms including weight loss in the range of 40-50 pounds, decrease in appetite, marked weakness as well as heat and cold intolerance. He states that he had extensive workup, including upper endoscopy as well as enteroscopy thr ough his ostomy at the [facility] in 12/01, multiple imaging including abdominal ultrasound, CAT scans, MRCP and chest x-rays which apparently did not show any definite pathology. The patient was started on Imodium in mid 03/03. He'll also been having problems with urinary frequency with negative workup. He was placed on medication by urology with improvement. He states that ileostomy output has decreased significantly since starting Imodium and his weight has been more stable. In 12/31 his WBC was 10.98 with hemoglobin 12.9 and platelets 205. Differential showed predominant neutrophils at 8.46. There was mild monocyte elevation at 1.09 with upper limit of normal 1000. Chem panel showed normal liver enzymes at that time. In early 01/31 coags were normal. WBC was 15.5, with neutrophils of 13, and monocytes of 1. Liver enzymes within normal. On 02/01/22 hemoglobin is 12.5, WBC normal at 9.01 with monocytes mildly elevated at 1.07. At that time AST was elevated at 267, ALT at 315 and alkaline phosphatase at 308. on 02/08/22 ALT was improved 0.27, AST 83 and alkaline phosphatase 226. Hemoglobin is 12.3, WBC 12.83 with monocytes elevated at 1.55 and neutrophils at 9.87. On 02/18/20 AST and ALT was 84 and 104 respectively, WBC 12.3, with monocytes now normal at 0.96 The patient denied any history of malignancy or blood problems in the past. He did require hospitalization for hydration in 01/31. He denies any known history of chronic liver disease or heavy alcohol use. He and his stated that he did have stool testing done which was negative for infection. the patient had additional labs done, that were consistent with a reactive phenomenon, with monocytes normal, and mild WBC elevation with predominant neutrophilia. Testing for deficiency states was also negative, with ferritin and B12 actually somewhat higher than normal indicating mild bone marrow suppression consistent with inflammation/chronic illness He denied any fever/chills/nausea/vomiting. He states that ostomy output appears to have increased again. He continues to have urinary frequency and has not yet started the new medicine prescribed by urology. He continues to have persistent weakness, easy fatigability, and increased sleeping time. No history of any unusual bleeding or bruising. Review of systems otherwise as per HPI and negative out of 10. He was last seen on 04.06.[address] Little in [facility] at that time the patient's workup so far was negative for any evidence of malignancy or a significant blood abnormality. With his mild monocytosis being intermittent, it is extremely unlikely that he has a primary MPD. Even if he did have CMML, this would be very early, which would typically not required any treatment. - The patient and his remain concerned about a possible occult malignancy. We again discussed that there is absolutely no evidence of the same based on extensive testing which includes imaging as well as upper and lower endoscopies. While early occult malignancy not be ruled out despite extensive testing, something like that is highly unlikely to cause any significant systemic symptoms - Based on his symptoms I recommended testing for possible occult carcinoid. Patient was somewhat reluctant for the same initially was subsequently agreed. Any abnormalities found of the same, then additional testing will be ordered. Otherwise I will repeat imaging and labs in about 2 months. Urine 5-HIAA neg and at this time we have not been able to find evidence of malignancy. He presented to hospital with fever, nausea and vomiting. 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, IDDM type II, ulcerative colitis/had J pouch and later ileostomy, chronic diarrhea/dehydration, ileal polyps, recurrent nephrolithiasis, pyelonephritis, BPH, ANGEL occasionally wears Cpap, chronic low iron, bilaterally [place]/aides, takes eye drops to prevent glaucoma History of Any Multi-Drug Resistant Organisms: None Reported Past Surgical History: Appendectomy, Bowel Resection, Coronary Bypass/CABG, Heart Catheterization, Hernia Repair, Joint Replacement Additional Past Surgical History / Comment(s): 2020 CABG with 4 vessel bypass, colectomy with ileostomy, previous J pouch, colonoscopies, EGD, abdominal hernia/mesh, lithotripsy with R ureteral stent, L partial knee arthroplasty, bilateral cataract removal/lens implants, L eye surgery for detached retina. Past Anesthesia/Blood Transfusion Reactions: No Reported Reaction Additional Past Anesthesia/Blood Transfusion Reaction / Comm: PATIENT HAD SURGERY FOR LEFT EYE DETACHED RETINA AND DEVELOPED GAS BUBBLE IN L EYE. HE WAS INSTRUCTED TO NOT RECEIVE NITROUS OXIDE OR RIDE IN A PLANE UNTIL GAS BUBBLE IS GONE. Past Psychological History: Depression Smoking Status: Former smoker Past Alcohol Use History: None Reported Past Drug Use History: None Reported - Past Family History Mother Family Medical History: Cancer, Diabetes Mellitus Additional Family Medical History / Comment(s): Mother at age 84 from [place] Father Additional Family Medical History / Comment(s): Father is with history of coronary artery disease. Brother(s) Family Medical History: Coronary Artery Disease (CAD), Vascular Disorder Additional Family Medical History / Comment(s): Patient has 4 brothers. Two at the age of 44 from coronary artery disease with history of tobacco use and alcohol dependence. One from aneurysm in the chest. Medications and Allergies Home Medications Medication Instructions Recorded Confirmed Type Finasteride [Proscar] 5 mg PO DAILY 02/06/17 05/06/22 History Multivit-Min/FA/Lycopen/Lutein 0.5 tab PO BID 02/06/17 05/06/22 History [Centrum Silver Men Tablet] Tamsulosin [Flomax] 0.4 mg PO HS 02/06/17 05/06/22 History Omeprazole 40 mg PO QAM 12/05/18 05/06/22 History Loratadine [Claritin] 10 mg PO DAILY 08/29/20 05/06/22 History Turmeric Root Extract [Turmeric] 1,000 mg PO BID 08/29/20 05/06/22 History Melatonin 5 mg PO HS PRN tablet 02/14/21 05/06/22 Rx Apixaban [Eliquis] 5 mg PO BID 01/12/22 05/06/22 History Ascorbic Acid [Vitamin C] 500 mg PO DAILY 01/12/22 05/06/22 History Cranberry 450mg 1 tab PO HS 01/12/22 05/06/22 History Latanoprost/Pf [Latanoprost 0.005% 1 drop BOTH EYES HS 01/12/22 05/06/22 History Eye Drop] DULoxetine HCL [Cymbalta] 90 mg PO DAILY 01/15/22 05/06/22 History Acetaminophen Tab [Tylenol] 325 mg PO Q6HR PRN tab 01/18/22 05/06/22 Rx Metoprolol Tartrate [Lopressor] 50 mg PO BID 30 Days #60 tab 01/18/22 05/06/22 R x Insulin Glargine,Hum.rec.anlog 35 unit SQ HS 03/09/22 05/06/22 History [Basaglar Kwikpen U-100] Insulin Lispro [humaLOG Kwikpen] 10 unit SQ TID-W/MEALS 03/09/22 05/06/22 History Pioglitazone [Actos] 30 mg PO MOWEFRSA 03/09/22 05/06/22 History traMADol HCl [Ultram] 50 mg PO Q6HR PRN 3 Days #12 tab 03/14/22 05/06/22 Rx Cholecalciferol [Vitamin D3 (25 25 mcg PO DAILY 05/06/22 05/06/22 History Mcg = 1000 Iu)] Ferrous Sulfate [Feosol] 325 mg PO HS 05/06/22 05/06/22 History Loperamide [Imodium] 2 - 4 mg PO QID PRN 05/06/22 05/06/22 History Mirabegron [Myrbetriq] 50 mg PO DIRECTED 05/06/22 05/06/22 History Allergies Allergy/AdvReac Type Severity Reaction Status Date / Time codeine Allergy Rash/Hives Verified 05/06/22 21:19 morphine Allergy Rash/Hives Verified 05/06/22 21:19 Physical Exam Vitals: Vital Signs Temp Pulse Resp BP Pulse Ox 05/07/22 13:15 100.6 F H 131 H 18 105/95 96 05/07/22 08:43 99.1 F 96 18 76/51 96 05/07/22 06:37 100.3 F H 05/07/22 06:12 118 H 18 105/69 05/07/22 05:01 104 H 20 93/74 94 L 05/07/22 04:41 97.6 F 05/07/22 04:01 80 18 81/58 05/07/22 02:14 88 83/63 05/07/22 01:34 82 18 87/44 98 05/07/22 00:53 97.8 F 05/07/22 00:00 90 18 81/58 93 L 05/06/22 23:42 79/58 05/06/22 22:14 93 16 79/56 05/06/22 21:32 109 H 78/68 05/06/22 21:19 98.0 F 113 H 18 77/49 96 Intake and Output 05/06/22 05/07/22 05/07/22 22:59 06:59 14:59 Output Total 902 Balance -902 Output: Urine 700 Stool 2 Other 200 Other: Weight 67.132 kg - Constitutional General appearance: cooperative, no acute distress - EENT Eyes: EOMI ENT: NA/AT - Neck Neck: normal ROM - Respiratory Respiratory: bilateral: diminished - Cardiovascular Rhythm: regularly irregular - Gastrointestinal General gastrointestinal: soft - Integumentary Integumentary: pale - Psychiatric Psychiatric: A&O x's 3 Results CBC & Chem 7: 05/07/22 07:03 05/07/22 07:03 Labs: Abnormal Lab Results - Last 24 Hours (Table) 05/06/22 05/06/22 05/07/22 Range/Units 21:50 21:50 00:17 WBC 17.5 H (3.8-10.6) k/uL RBC 4.10 L (4.30-5.90) m/uL Hgb 12.0 L (13.0-17.5) gm/dL Hct 35.6 L (39.0-53.0) % Neutrophils # 15.9 H (1.3-7.7) k/uL Lymphocytes # 0.7 L (1.0-4.8) k/uL Sodium 124 L (137-145) mmol/L Carbon Dioxide 14 L (22-30) mmol/L BUN 40 H (9-20) mg/dL Creatinine 1.61 H (0.66-1.25) mg/dL Glucose 175 H (74-99) mg/dL POC Glucose (mg/dL) (70-110) mg/dL Calcium (8.4-10.2) mg/dL Alkaline Phosphatase 169 H (38-126) U/L Total Protein (6.3-8.2) g/dL Albumin (3.5-5.0) g/dL Urine Protein Trace H (Negative) Amorphous Sediment Rare H (None) /hpf Urine Bacteria Rare H (None) /hpf Hyaline Casts 3 H (0-2) /lpf Urine Mucus Rare H (None) /hpf 05/07/22 05/07/22 05/07/22 Range/Units 07:03 07:03 08:50 WBC 13.1 H (3.8-10.6) k/uL RBC 3.66 L (4.30-5.90) m/uL Hgb 10.6 L (13.0-17.5) gm/dL Hct 32.7 L (39.0-53.0) % Neutrophils # 12.2 H (1.3-7.7) k/uL Lymphocytes # 0.2 L (1.0-4.8) k/uL Sodium 131 L (137-145) mmol/L Carbon Dioxide 17 L (22-30) mmol/L BUN 29 H (9-20) mg/dL Creatinine (0.66-1.25) mg/dL Glucose 170 H (74-99) mg/dL POC Glucose (mg/dL) 148 H (70-110) mg/dL Calcium 7.7 L (8.4-10.2) mg/dL Alkaline Phosphatase (38-126) U/L Total Protein 5.7 L (6.3-8.2) g/dL Albumin 2.9 L (3.5-5.0) g/dL Urine Protein (Negative) Amorphous Sediment (None) /hpf Urine Bacteria (None) /hpf Hyaline Casts (0-2) /lpf Urine Mucus (None) /hpf 05/07/22 05/07/22 Range/Units 12:38 12:51 WBC (3.8-10.6) k/uL RBC (4.30-5.90) m/uL Hgb (13.0-17.5) gm/dL Hct (39.0-53.0) % Neutrophils # (1.3-7.7) k/uL Lymphocytes # (1.0-4.8) k/uL Sodium (137-145) mmol/L Carbon Dioxide (22-30) mmol/L BUN (9-20) mg/dL Creatinine (0.66-1.25) mg/dL Glucose (74-99) mg/dL POC Glucose (mg/dL) 118 H (70-110) mg/dL Calcium (8.4-10.2) mg/dL Alkaline Phosphatase (38-126) U/L Total Protein (6.3-8.2) g/dL Albumin (3.5-5.0) g/dL Urine Protein Trace H (Negative) Amorphous Sediment (None) /hpf Urine Bacteria (None) /hpf Hyaline Casts (0-2) /lpf Urine Mucus (None) /hpf Assessment and Plan (1) Normocytic anemia Current Visit: Yes Status: Acute Code(s): D64.9 - ANEMIA, UNSPECIFIED SNOMED Code(s): 518440925 (2) Neutrophil dysfunction Current Visit: Yes Status: Acute Code(s): D72.9 - DISORDER OF WHITE BLOOD CELLS, UNSPECIFIED SNOMED Code(s): 439471414 (3) Fever Current Visit: Yes Status: Acute Code(s): R50.9 - FEVER, UNSPECIFIED SNOMED Code(s): 406859028 (4) DOM (acute kidney injury) Current Visit: No Status: Acute Code(s): N17.9 - ACUTE KIDNEY FAILURE, UNSPECIFIED SNOMED Code(s): 59933032 Plan: After comprehensive work-up there has been no evidence to identify malignancy as root cause for his symptoms. He is admitted with fever at this time. Additional studies ordered He is admitted and fever is 103 while seen in ER, Full infectious work-up, ID to follow. Await resolution of infection and follow-up after
[2022-05-07 20:03] LABS: Glucose,Whole Blood 158 mg/dL (70-110)
[2022-05-07] MEDS: IOPAMIDOL CONTRAST (ORAL USE) VIAL PO PRN ×2 (21:20→22:14)
[2022-05-07 22:42] LABS: Protein, Total 5.9 g/dL (6.2-8.2)
[2022-05-07 22:44] LABS: Immunoglobulin M 52.2 mg/dL (40.0-280.0)
[2022-05-07 22:51] LABS: % Iron Saturation 6.45 (15.00-50.00); Iron 12 ug/dL (65-175); Total Iron Binding Capacity 188 ug/dL (228-460)
--- NOTE | 2022-05-07 23:08 | P.CONS ---
History of Present Illness - Reason for Consult Consult date: 05/07/22 Fever Requesting physician: Diego Arana - Chief Complaint Fever x few days - History of Present Illness Patient is a 71-year-old male with a past medical history significant for diabetes mellitus hypertension patient did have a history of ulcerative coli tis status post colectomy and did have ileostomy patient apparently recently being worked up by his oncologist for possible malignancy and the patient is scheduled for a PET scan as the patient did have about 50 pound weight loss. The patient has been brought into the hospital concerning for weakness and a fever apparently has been running a temperature of around 103 F over the last few days, the patient denies having any headache or URI symptoms except some sore throat patient denies having any chest pain shortness of breath or cough no nausea no vomiting no abdominal pain or any worsening output in his ileostomy bag with the symptoms the patient was evaluated by ER physician on arrival to the ER the patient was afebrile however he did spike a fever of 103.6 F patient also tachycardic patient did have white count of 17.5 with a left shift kidney function slightly elevated on admission however repeat creatinine down to normal level enzymes are normal urine was negative x2 influenza COVID RSV PCR was negative stool for C. difficile was negative patient did have a chest x-ray that was reported negative for acute cardiopulmonary disease patient was admitted to the hospital infectious was consulted for further management of antibiotic therapy Review of Systems Positive point has been mentioned in the HPI rest of the systems are negative Past Medical History Past Medical History: Atrial Fibrillation, Coronary Artery Disease (CAD), CVA/TIA, Diabetes Mellitus, Eye Disorder, GERD/Reflux, GI Bleed, Hearing Disor harmeet / Deafness, Hyperlipidemia, Hypertension, Prostate Disorder, Renal Disease, Sleep Apnea/CPAP/BIPAP Additional Past Medical History / Comment(s): CVA in 2014 and 2018/some residual balance issues, IDDM type II, ulcerative colitis/had J pouch and later ileostomy, chronic diarrhea/dehydration, ileal polyps, recurrent nephrolithiasis, pyelonephritis, BPH, ANGEL occasionally wears Cpap, chronic low iron, bilaterally [place]/aides, takes eye drops to prevent glaucoma History of Any Multi-Drug Resistant Organisms: None Reported Past Surgical History: Appendectomy, Bowel Resection, Coronary Bypass/CABG, Heart Catheterization, Hernia Repair, Joint Replacement Additional Past Surgical History / Comment(s): 2020 CABG with 4 vessel bypass, colectomy with ileostomy, previous J pouch, colonoscopies, EGD, abdominal hernia/mesh, lithotripsy with R ureteral stent, L partial knee arthroplasty, bilateral cataract removal/lens implants, L eye surgery for detached retina. Past Anesthesia/Blood Transfusion Reactions: No Reported Reaction Additional Past Anesthesia/Blood Transfusion Reaction / Comm: PATIENT HAD SURGERY FOR LEFT EYE DETACHED RETINA AND DEVELOPED GAS BUBBLE IN L EYE. HE WAS INSTRUCTED TO NOT RECEIVE NITROUS OXIDE OR RIDE IN A PLANE UNTIL GAS BUBBLE IS GONE. Past Psychological History: Depression Smoking Status: Former smoker Past Alcohol Use History: None Reported Past Drug Use History: None Reported - Past Family History Mother Family Medical History: Cancer, Diabetes Mellitus Additional Family Medical History / Comment(s): Mother at age 84 from [place] Father Additional Family Medical History / Comment(s): Father is with history of coronary artery disease. Brother(s) Family Medical History: Coronary Artery Disease (CAD), Vascular Disorder Additional Family Medical History / Comment(s): Patient has 4 brothers. Two at the age of 44 from coronary artery disease with history of tobacco use and alcohol dependence. One from aneurysm in the chest. Medications and Allergies Home Medications Medication Instructions Recorded Confirmed Type Finasteride [Proscar] 5 mg PO DAILY 02/06/17 05/06/22 History Multivit-Min/FA/Lycopen/Lutein 0.5 tab PO BID 02/06/17 05/06/22 History [Centrum Silver Men Tablet] Tamsulosin [Flomax] 0.4 mg PO HS 02/06/17 05/06/22 History Omeprazole 40 mg PO QAM 12/05/18 05/06/22 History Loratadine [Claritin] 10 mg PO DAILY 08/29/20 05/06/22 History Turmeric Root Extract [Turmeric] 1,000 mg PO BID 08/29/20 05/06/22 History Melatonin 5 mg PO HS PRN tablet 02/14/21 05/06/22 Rx Apixaban [Eliquis] 5 mg PO BID 01/12/22 05/06/22 History Ascorbic Acid [Vitamin C] 500 mg PO DAILY 01/12/22 05/06/22 History Cranberry 450mg 1 tab PO HS 01/12/22 05/06/22 History Latanoprost/Pf [Latanoprost 0.005% 1 drop BOTH EYES HS 01/12/22 05/06/22 History Eye Drop] DULoxetine HCL [Cymbalta] 90 mg PO DAILY 01/15/22 05/06/22 History Acetaminophen Tab [Tylenol] 325 mg PO Q6HR PRN tab 01/18/22 05/06/22 Rx Cholecalciferol [Vitamin D3 (25 25 mcg PO DAILY 05/06/22 05/06/22 History Mcg = 1000 Iu)] Ferrous Sulfate [Iron (65 MG 325 mg PO HS 05/06/22 05/06/22 History Elemental)] Loperamide [Imodium] 2 - 4 mg PO QID PRN 05/06/22 05/06/22 History Mirabegron [Myrbetriq] 50 mg PO DAILY 05/06/22 05/09/22 History traMADol HCl [Ultram] 50 mg PO Q12HR PRN 3 Days #5 tab 05/16/22 Rx Amoxic-Pot Clav 875-125Mg 1 tab PO BID 10 Days #20 tab 05/17/22 Rx [Augmentin 875-125] INSULIN ASPART (NovoLOG) [NovoLOG 0 unit SQ ACHS each 05/17/22 Rx (formulary)] Insulin Detemir (Levemir) [Levemir] 16 unit SQ HS each 05/17/22 Rx Metoprolol Tartrate [Lopressor] 25 mg PO TID tab 05/17/22 Rx Allergies Allergy/AdvReac Type Severity Reaction Status Date / Time codeine Allergy Rash/Hives Verified 05/06/22 21:19 morphine Allergy Rash/Hives Verified 05/06/22 21:19 Physical Exam Vitals: Vital Signs Temp Pulse Resp BP Pulse Ox FiO2 05/07/22 15:40 103.2 F H 135 H 18 111/63 95 05/07/22 15:27 95 21 05/07/22 14:10 103.6 F H 144 H 18 120/80 95 05/07/22 13:15 100.6 F H 131 H 18 105/95 96 05/07/22 12:00 102 H 20 106/66 95 05/07/22 11:00 102 H 19 106/66 95 05/07/22 08:43 99.1 F 96 18 76/51 96 05/07/22 06:37 100.3 F H 05/07/22 06:12 118 H 18 105/69 05/07/22 05:01 104 H 20 93/74 94 L 05/07/22 04:41 97.6 F 05/07/22 04:01 80 18 81/58 05/07/22 02:14 88 83/63 05/07/22 01:34 82 18 87/44 98 05/07/22 00:53 97.8 F 05/07/22 00:00 90 18 81/58 93 L 05/06/22 23:42 79/58 05/06/22 22:14 93 16 79/56 05/06/22 21:32 109 H 78/68 05/06/22 21:19 98.0 F 113 H 18 77/49 96 Intake and Output 05/07/22 05/07/22 05/07/22 06:59 14:59 22:59 Output Total 902 Balance -902 Output: Urine 700 Stool 2 Other 200 GENERAL DESCRIPTION: Elderly male lying in bed, no distress. No tachypnea or accessory muscle of respiration use. HEENT: Shows Pallor , no scleral icterus. Oral mucous membrane is dry. No pharyngeal erythema or thrush NECK: Trachea central, no thyromegaly. LUNGS: Unlabored breathing. Clear to auscultation anteriorly. No wheeze or crackle. HEART: S1, S2, regular rate and rhythm. No loud murmur ABDOMEN: Soft, no tenderness , guarding or rigidity, no organomegaly EXTREMITIES: No edema of feet. SKIN: No rash, no masses palpable. NEUROLOGICAL: The patient is awake, alert, oriented x3, mood and affect normal. Results CBC & Chem 7: 05/16/22 10:58 05/16/22 10:58 Labs: Abnormal Lab Results - Last 24 Hours (Table) 05/06/22 05/06/22 05/07/22 Range/Units 21:50 21:50 00:17 WBC 17.5 H (3.8-10.6) k/uL RBC 4.10 L (4.30-5.90) m/uL Hgb 12.0 L (13.0-17.5) gm/dL Hct 35.6 L (39.0-53.0) % Neutrophils # 15.9 H (1.3-7.7) k/uL Lymphocytes # 0.7 L (1.0-4.8) k/uL ESR (0-15) mm/hr Sodium 124 L (137-145) mmol/L Carbon Dioxide 14 L (22-30) mmol/L BUN 40 H (9-20) mg/dL Creatinine 1.61 H (0.66-1.25) mg/dL Glucose 175 H (74-99) mg/dL POC Glucose (mg/dL) (70-110) mg/dL Hemoglobin A1c (0.0-6.0) % Calcium (8.4-10.2) mg/dL Alkaline Phosphatase 169 H (38-126) U/L Lactate Dehydrogenase (313-618) U/L Total Protein (6.3-8.2) g/dL Albumin (3.5-5.0) g/dL Urine Protein Trace H (Negative) Amorphous Sediment Rare H (None) /hpf Urine Bacteria Rare H (None) /hpf Hyaline Casts 3 H (0-2) /lpf Urine Mucus Rare H (None) /hpf 05/07/22 05/07/22 05/07/22 Range/Units 07:03 07:03 07:03 WBC 13.1 H (3.8-10.6) k/uL RBC 3.66 L (4.30-5.90) m/uL Hgb 10.6 L (13.0-17.5) gm/dL Hct 32.7 L (39.0-53.0) % Neutrophils # 12.2 H (1.3-7.7) k/uL Lymphocytes # 0.2 L (1.0-4.8) k/uL ESR (0-15) mm/hr Sodium 131 L (137-145) mmol/L Carbon Dioxide 17 L (22-30) mmol/L BUN 29 H (9-20) mg/dL Creatinine (0.66-1.25) mg/dL Glucose 170 H (74-99) mg/dL POC Glucose (mg/dL) (70-110) mg/dL Hemoglobin A1c 7.1 H (0.0-6.0) % Calcium 7.7 L (8.4-10.2) mg/dL Alkaline Phosphatase (38-126) U/L Lactate Dehydrogenase (313-618) U/L Total Protein 5.7 L (6.3-8.2) g/dL Albumin 2.9 L (3.5-5.0) g/dL Urine Protein (Negative) Amorphous Sediment (None) /hpf Urine Bacteria (None) /hpf Hyaline Casts (0-2) /lpf Urine Mucus (None) /hpf 05/07/22 05/07/22 05/07/22 Range/Units 08:50 12:38 12:51 WBC (3.8-10.6) k/uL RBC (4.30-5.90) m/uL Hgb (13.0-17.5) gm/dL Hct (39.0-53.0) % Neutrophils # (1.3-7.7) k/uL Lymphocytes # (1.0-4.8) k/uL ESR (0-15) mm/hr Sodium (137-145) mmol/L Carbon Dioxide (22-30) mmol/L BUN (9-20) mg/dL Creatinine (0.66-1.25) mg/dL Glucose (74-99) mg/dL POC Glucose (mg/dL) 148 H 118 H (70-110) mg/dL Hemoglobin A1c (0.0-6.0) % Calcium (8.4-10.2) mg/dL Alkaline Phosphatase (38-126) U/L Lactate Dehydrogenase (313-618) U/L Total Protein (6.3-8.2) g/dL Albumin (3.5-5.0) g/dL Urine Protein Trace H (Negative) Amorphous Sediment (None) /hpf Urine Bacteria (None) /hpf Hyaline Casts (0-2) /lpf Urine Mucus (None) /hpf 05/07/22 05/07/22 Range/Units 14:20 14:20 WBC (3.8-10.6) k/uL RBC (4.30-5.90) m/uL Hgb (13.0-17.5) gm/dL Hct (39.0-53.0) % Neutrophils # (1.3-7.7) k/uL Lymphocytes # (1.0-4.8) k/uL ESR 103 H (0-15) mm/hr Sodium (137-145) mmol/L Carbon Dioxide (22-30) mmol/L BUN (9-20) mg/dL Creatinine (0.66-1.25) mg/dL Glucose (74-99) mg/dL POC Glucose (mg/dL) (70-110) mg/dL Hemoglobin A1c (0.0-6.0) % Calcium (8.4-10.2) mg/dL Alkaline Phosphatase (38-126) U/L Lactate Dehydrogenase 309 L (313-618) U/L Total Protein (6.3-8.2) g/dL Albumin (3.5-5.0) g/dL Urine Protein (Negative) Amorphous Sediment (None) /hpf Urine Bacteria (None) /hpf Hyaline Casts (0-2) /lpf Urine Mucus (None) /hpf Assessment and Plan (1) Fever Status: Acute Priority: High Code(s): R50.9 - FEVER, UNSPECIFIED SNOMED Code(s): 249022607 Plan: 1patient presented to hospital with a fever in this patient with no significant localizing signs or symptoms and initial work-up has been negative question of possible abdominal source 2we will check a CT of abdominal pelvis 3we will check inflammatory markers 4discontinue Rocephin start the patient on Unasyn while awaiting further work- up to be completed We will follow on clinical condition and cultures to further adjust medication if needed Thank you for this consultation will follow this patient along with you Time with Patient: Greater than 30
--- NOTE | 2022-05-07 23:11 | CT ---
EXAMINATION TYPE: CT abdomen pelvis w con DATE OF EXAM: 05/07/2022 COMPARISON: 01/15/2022 HISTORY: ABD PAIN, SEPSIS HX ILEOSTOMY CT DLP: 1056.5 mGycm Automated exposure control for dose reduction was used. CONTRAST: Performed with IV Contrast, patient injected with 80 mL of Isovue 300. Images obtained from the diaphragm to the floor the pelvis with the oral and IV contrast. There is some atelectasis at the posterior lung bases with mild pleural thickening. No pericardial ef fusion. Liver and spleen are intact. No pancreatic mass. Gallbladder is intact. The stomach is intact. There is no adrenal mass. Kidneys show satisfactory contrast opacification. No hydronephrosis. Ureter s are not dilated. No retroperitoneal adenopathy. Bladder distends smoothly. No inguinal hernia. Ther e is some stranding in the pelvis consistent with previous surgery. There is right-sided ileostomy no dayanara. No evidence of a bowel obstruction. No mesenteric edema. No free air. There is apparent total co lectomy. There is tiny amount of fluid adjacent to the right lobe of the liver. The lumbar vertebra. With normal alignment. There is vertebroplasty of L1 with 25% compression fractu re. The bony pelvis is intact. The hip joints are intact. IMPRESSION: Bilateral lower lobe pleural thickening and atelectasis without change compared to old exam No acute abnormality within the abdomen and pelvis. No bowel obstruction. Tiny amount of ascites flui d decreased compared to last exam.
[2022-05-07] MEDS: FERROUS SULFATE 325 MG TAB PO SCH (23:28)
[2022-05-07] MEDS: INSULIN DETEMIR (LEVEMIR) 100 UNIT/ML SYR SQ SCH (23:28)
[2022-05-07] MEDS: TAMSULOSIN 0.4 MG CAP.ER.24H PO SCH (23:29)
[2022-05-07] MEDS: AMPICILLIN-SULBACTAM 3 GM in SODIUM CHLORIDE 0.9% 100 ML IVPB SCH (23:29)
[2022-05-07 23:46] LABS: Vitamin B12 >1800.0 pg/mL (200.0-944.0)
[2022-05-08 06:11] LABS: Glucose,Whole Blood 143 mg/dL (70-110)
[2022-05-08] MEDS: SODIUM CHLORIDE 0.9% 1,000 ML IV SCH ×4 (06:23→20:44)
[2022-05-08] MEDS: INSULIN ASPART (NovoLOG) 100 UNIT/ML VIAL SQ SCH ×4 (06:32→20:44)
[2022-05-08] MEDS: AMPICILLIN-SULBACTAM 3 GM in SODIUM CHLORIDE 0.9% 100 ML IVPB SCH ×4 (06:44→22:44)
[2022-05-08 08:18] LABS: Basophils % (A) 0 %; Eosinophils % (A) 0 %; HCT 33.6 % (39.0-53.0); HGB 10.9 gm/dL (13.0-17.5); Hypochromasia Moderate; Lymphocytes # (A) 0.4 k/uL (1.0-4.8); Lymphocytes % (A) 3 %; MCH 29.5 pg (25.0-35.0); MCHC 32.5 g/dL (31.0-37.0); MCV 90.6 fL (80.0-100.0); Mean Platelet Volume 10.5; Monocytes # (A) 0.5 k/uL (0-1.0); Monocytes % (A) 3 %; Neutrophils # (A) 13.8 k/uL (1.3-7.7); Neutrophils % (A) 93 %; Platelet Count 139 k/uL (150-450); RBC 3.71 m/uL (4.30-5.90); RDW 14.6 % (11.5-15.5); WBC 14.9 k/uL (3.8-10.6)
[2022-05-08] MEDS: FINASTERIDE 5 MG TAB PO SCH (08:23)
[2022-05-08] MEDS: DULoxetine HCL 30 MG CAPSULE.DR PO SCH (08:24)
[2022-05-08] MEDS: LORATADINE 10 MG TAB PO SCH (08:24)
[2022-05-08] MEDS: PANTOPRAZOLE 40 MG/10 ML VIAL IVP SCH (08:24)
[2022-05-08] MEDS: APIXABAN 5 MG TAB PO SCH ×2 (08:24→20:44)
[2022-05-08 08:32] LABS: Calcium 7.8 mg/dL (8.4-10.2)
--- NOTE | 2022-05-08 09:05 | P.PN ---
Subjective This is a pleasant 71 years old male with past medical history of diabetes mellitus, hypertension, chronic anemia, atrial fibrillation on Eliquis blood thinner at home Patient states that she has been losing weight over several months with decrease d appetite, he lost about 50 pounds and his PCP Dr. Lord is working him up, he has scheduled PET scan on May 13. Over the last 3 weeks this been feeling more weak with low appetite. Over the last few days he's been feeling feverish and his checked his temperature at home and he states it was between 101 and 103. He has some coughing and shortness of breath but no chest pain, no GI symptoms like diarrhea or vomiting. 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 He complains from urgency and sometimes dysuria. No n eurological symptoms like headache or dizziness or weakness or numbness. He denies Smoking alcohol or illicit drug Vitals reviewed since admission he has no fever. Patient was hypotensive on admission 83/63 and currently blood pressure 105/69. He is tachycardic 118. He is saturating 94% on room air. showing leukocytosis 17.5, he has chronic leukocytosis since 02/08/2022 at 12.8, at times at 16.6 and then 12.6. Hemoglobin 12. Sodium 124. Acute kidney injury most likely prerenal creatinine 1.6, baseline 1.2 . Liver enzymes not elevated. Urine analysis is negative for infection. Viral test including howell, confluence and RSV viruses are undetected Chest x-ray: No active pulmonary process On admission her received ceftriaxone once daily, Toradol 1 and more than 2.5 L of normal saline. He was admitted with oncology and ID team consult. 05/08/2022 N awake and alert, lying in bed does not look in distress, still feels generally weak, still has low appetite but no other complaint. No dyspnea or cough and No chest pain or abdominal pain, no vomiting. Patient reports watery diarrhea of the right abdomen colostomy back and more frequent. he still have low-grade temperature 100.1 this morning Blood pressure is borderline and slightly tachycardic but creatinine improved down to 1.0. CT of the abdomen and pelvis showing no change in bilateral pleural effusion and atelectasis with no acute abnormality to explain patient's symptoms. Check for C. diff was negative. Patient currently on normal saline at 1 25 mL/h and Unasyn intravenously. No glucose is controlled on Levemir 20 units Review of systems CONSTITUTIONAL: No fever, no malaise, no fatigue. HEENT: No recent visual problems or hearing problems. Denied any sore throat. CARDIOVASCULAR: No orthopnea, PND, no palpitations, no syncope. PULMONARY: No shortness of breath, no cough, no hemoptysis. GASTROINTESTINAL: no nausea, no vomiting, no abdominal pain. Normoactive bowel sounds. NEUROLOGICAL: No headaches, no weakness, no numbness. HEMATOLOGICAL: Denies any bleeding or petechiae. Active Medications Generic Name Dose Route Start Last Admin Trade Name Freq PRN Reason Stop Dose Admin Acetaminophen 650 mg 05/07/22 14:30 05/07/22 14:34 Acetaminophen Tab 325 Mg Tab PO 650 mg Q4HR PRN Administration Fever and/ or Pain Apixaban 5 mg 05/07/22 09:00 05/08/22 08:24 Apixaban 5 Mg Tab PO 5 mg BID KRISTIN Administration Protocol Dextrose/Water 50 ml 05/07/22 06:34 Dextrose 50% Syringe 50 Ml IVP PER PROTOCOL PRN Hypoglycemia Protocol Dextrose/Water 25 ml 05/07/22 06:34 Dextrose 50% Syringe 50 Ml IVP PER PROTOCOL PRN Hypoglycemia Protocol Duloxetine HCl 90 mg 05/07/22 09:00 05/08/22 08:24 Duloxetine Hcl 30 Mg Capsule.Dr PO 90 mg DAILY KRISTIN Administration Ferrous Sulfate 325 mg 05/07/22 21:00 05/07/22 23:28 Ferrous Sulfate 325 Mg Tab PO 325 mg HS KRISTIN Administration Finasteride 5 mg 05/07/22 09:00 05/08/22 08:23 Finasteride 5 Mg Tab PO 5 mg DAILY KRISTIN Administration Sodium Chloride 1,000 mls @ 125 mls/hr 05/07/22 07:15 05/08/22 06:52 Saline 0.9% IV 125 mls/hr .Q8H KRISTIN Administration Ampicillin Sodium/Sulbactam 100 mls @ 200 mls/hr 05/08/22 00:00 05/08/22 06:44 Sodium 3 gm/ Sodium Chloride IVPB 200 mls/hr Q6HR KRISTIN Administration Protocol Insulin Aspart 0 unit 05/07/22 07:30 05/08/22 06:32 Insulin Aspart (Novolog) 100 Unit/Ml Vial SQ Not Given ACHS KRISTIN Protocol Insulin Detemir 20 unit 05/07/22 21:00 05/07/22 23:28 Insulin Detemir (Levemir) 100 Unit/Ml Syr SQ 20 unit HS KRISTIN Administration Loratadine 10 mg 05/07/22 09:00 05/08/22 08:24 Loratadine 10 Mg Tab PO 10 mg DAILY KRISTIN Administration Melatonin 5 mg 05/07/22 06:32 Melatonin 5 Mg Tablet PO HS PRN Insomnia Naloxone HCl 0.2 mg 05/07/22 00:38 Naloxone 0.4 Mg/Ml 1 Ml Vial IV Q2M PRN Opioid Reversal Ondansetron HCl 4 mg 05/07/22 00:38 Ondansetron 4 Mg/2 Ml Vial IVP Q8HR PRN Nausea And Vomiting Pantoprazole Sodium 40 mg 05/07/22 09:00 05/08/22 08:24 Pantoprazole 40 Mg/10 Ml Vial IVP 40 mg DAILY KRISTIN Administration Tamsulosin HCl 0.4 mg 05/07/22 21:00 05/07/22 23:29 Tamsulosin 0.4 Mg Cap.Er.24h PO 0.4 mg HS KRISTIN Administration Tramadol HCl 50 mg 05/07/22 06:32 Tramadol 50 Mg Tab PO Q6HR PRN Pain Objective - Vital Signs Vital signs: Vital Signs Temp 97.9 F 05/08/22 08:28 Pulse 123 H 05/08/22 08:28 Resp 16 05/08/22 08:28 BP 99/63 05/08/22 08:28 Pulse Ox 99 05/08/22 08:28 FiO2 21 05/07/22 15:27 Intake & Output 05/07/22 05/08/22 05/08/22 18:59 06:59 18:59 Intake Total 237 Output Total 200 2000 Balance -200 -1763 Intake: Oral 237 Output: Urine 900 Stool 200 1100 Other: Voiding Method External Catheter - Exam -GENERAL: The patient is alert and oriented x3, not in any acute distress. Thin built HEENT: Pupils are round and equally reacting to light. EOMI. No scleral icterus. No conjunctival pallor. Normocephalic, atraumatic. No pharyngeal erythema. No thyromegaly. CARDIOVASCULAR: S1 and S2 present. No murmurs, rubs, or gallops. PULMONARY: Chest is clear to auscultation, no wheezing or crackles. -ABDOMEN: Soft, nontender, nondistended, normoactive bowel sounds. No palpable organomegaly. right ileostomy with empty bag MUSCULOSKELETAL: No joint swelling or deformity. EXTREMITIES: No cyanosis, clubbing, or pedal edema. NEUROLOGICAL: Gross neurological examination did not reveal any focal deficits. SKIN: No rashes. no petechiae. - Labs CBC & Chem 7: 05/08/22 06:53 05/08/22 06:53 Labs: Abnormal Lab Results - Last 24 Hours (Table) 05/07/22 05/07/22 05/07/22 Range/Units 07:03 12:38 12:51 WBC (3.8-10.6) k/uL RBC (4.30-5.90) m/uL Hgb (13.0-17.5) gm/dL Hct (39.0-53.0) % Plt Count (150-450) k/uL Neutrophils # (1.3-7.7) k/uL Lymphocytes # (1.0-4.8) k/uL ESR (0-15) mm/hr Sodium (137-145) mmol/L Carbon Dioxide (22-30) mmol/L Glucose (74-99) mg/dL POC Glucose (mg/dL) 118 H (70-110) mg/dL Hemoglobin A1c 7.1 H (0.0-6.0) % Calcium (8.4-10.2) mg/dL Iron (65-175) ug/dL TIBC (228-460) ug/dL % Saturation (15.00-50.00) Transferrin (204.0-354.0) mg/dL Ferritin (22.0-322.0) ng/mL Lactate Dehydrogenase (313-618) U/L Total Protein (PEP) (6.2-8.2) g/dL Vitamin B12 (200.0-944.0) pg/mL Vitamin D 25-Hydroxy (30.0-100.0) ng/mL Urine Protein Trace H (Negative) 05/07/22 05/07/22 05/07/22 Range/Units 14:20 14:20 14:20 WBC (3.8-10.6) k/uL RBC (4.30-5.90) m/uL Hgb (13.0-17.5) gm/dL Hct (39.0-53.0) % Plt Count (150-450) k/uL Neutrophils # (1.3-7.7) k/uL Lymphocytes # (1.0-4.8) k/uL ESR 103 H (0-15) mm/hr Sodium (137-145) mmol/L Carbon Dioxide (22-30) mmol/L Glucose (74-99) mg/dL POC Glucose (mg/dL) (70-110) mg/dL Hemoglobin A1c (0.0-6.0) % Calcium (8.4-10.2) mg/dL Iron 12 L (65-175) ug/dL TIBC 188 L (228-460) ug/dL % Saturation 6.45 L (15.00-50.00) Transferrin 134.0 L (204.0-354.0) mg/dL Ferritin 1510.0 H (22.0-322.0) ng/mL Lactate Dehydrogenase 309 L (313-618) U/L Total Protein (PEP) 5.9 L (6.2-8.2) g/dL Vitamin B12 >1800.0 H (200.0-944.0) pg/mL Vitamin D 25-Hydroxy 29.0 L (30.0-100.0) ng/mL Urine Protein (Negative) 05/07/22 05/07/22 05/08/22 Range/Units 17:29 20:02 06:06 WBC (3.8-10.6) k/uL RBC (4.30-5.90) m/uL Hgb (13.0-17.5) gm/dL Hct (39.0-53.0) % Plt Count (150-450) k/uL Neutrophils # (1.3-7.7) k/uL Lymphocytes # (1.0-4.8) k/uL ESR (0-15) mm/hr Sodium (137-145) mmol/L Carbon Dioxide (22-30) mmol/L Glucose (74-99) mg/dL POC Glucose (mg/dL) 213 H 158 H 143 H (70-110) mg/dL Hemoglobin A1c (0.0-6.0) % Calcium (8.4-10.2) mg/dL Iron (65-175) ug/dL TIBC (228-460) ug/dL % Saturation (15.00-50.00) Transferrin (204.0-354.0) mg/dL Ferritin (22.0-322.0) ng/mL Lactate Dehydrogenase (313-618) U/L Total Protein (PEP) (6.2-8.2) g/dL Vitamin B12 (200.0-944.0) pg/mL Vitamin D 25-Hydroxy (30.0-100.0) ng/mL Urine Protein (Negative) 05/08/22 05/08/22 Range/Units 06:53 06:53 WBC 14.9 H (3.8-10.6) k/uL RBC 3.71 L (4.30-5.90) m/uL Hgb 10.9 L (13.0-17.5) gm/dL Hct 33.6 L (39.0-53.0) % Plt Count 139 L (150-450) k/uL Neutrophils # 13.8 H (1.3-7.7) k/uL Lymphocytes # 0.4 L (1.0-4.8) k/uL ESR (0-15) mm/hr Sodium 129 L (137-145) mmol/L Carbon Dioxide 20 L (22-30) mmol/L Glucose 120 H (74-99) mg/dL POC Glucose (mg/dL) (70-110) mg/dL Hemoglobin A1c (0.0-6.0) % Calcium 7.8 L (8.4-10.2) mg/dL Iron (65-175) ug/dL TIBC (228-460) ug/dL % Saturation (15.00-50.00) Transferrin (204.0-354.0) mg/dL Ferritin (22.0-322.0) ng/mL Lactate Dehydrogenase (313-618) U/L Total Protein (PEP) (6.2-8.2) g/dL Vitamin B12 (200.0-944.0) pg/mL Vitamin D 25-Hydroxy (30.0-100.0) ng/mL Urine Protein (Negative) Microbiology - Last 24 Hours (Table) 05/06/22 22:10 Blood Culture - Preliminary Blood No Growth after 24 hours 05/06/22 21:50 Blood Culture - Preliminary Blood No Growth after 24 hours Assessment and Plan Assessment: Watery diarrhea with no abdominal pain suspicious for gastroenteritis. C. diff is negative Sepsis with fever and leukocytosis. No clear source of infection Recent loss of weight with low appetite, workup for possible cancer was unremarkable so far with oncology on the case Hypovolemic hyponatremia acute kidney injury on chronic kidney disease stage III, most likely prerenal. atrial fibrillation on Eliquis blood thinner at home Diabetes mellitus Hypertension Chronic anemia Plan: Continue with antibiotic Unasyn Follow-up culture results, including blood culture. Continue with IV hydration Consult follow up with ID and oncology team hold blood pressure medications including metoprolol 50 mg twice daily Lantus 35 units at bedtime and insulin lispro 10 units with meals. We will start with cautious Levemir 20 units at bedtime and 5 units with meals, with insulin sliding scale Labs and medication were reviewed.. Continue same treatment. Continue with symptomatic treatment. Resume home medication. Monitor labs and vitals. DVT and GI prophylaxis. Further recommendations as per clinical course of the patient DVT prophylaxis: Eliquis GI prophylaxis: Ppi PT/OT: Pending Prognosis is guarded
[2022-05-08 11:39] LABS: Glucose,Whole Blood 209 mg/dL (70-110)
[2022-05-08] MEDS: traMADol 50 MG TAB PO PRN ×2 (15:31→22:48)
--- NOTE | 2022-05-08 15:33 | P.PN ---
Subjective Progress Note Date: 05/08/22 Principal diagnosis: Fever Patient is a 71-year-old male with a past medical history significant for diabetes mellitus hypertension patient did have a history of ulcerative colitis status post colectomy and did have ileostomy patient apparently recently being worked up by his oncologist for possible malignancy and the patient is scheduled for a PET scan as the patient did have about 50 pound weight loss.The patient has been brought into the hospital concerning for weakness and a fever apparently has been running a temperature of around 103 F over the last few day s On today's evaluation and that is 05/08/2022, the patient overall fever pattern has improved with a low-grade fever of 99.9F this morning, the patient is currently breathing comfortably on room air. Denies any chest pain shortness of breath or cough no nausea no vomiting and abdominal pain Objective - Vital Signs Vital signs: Vital Signs Temp 98.0 F 05/08/22 12:50 Pulse 120 H 05/08/22 12:50 Resp 18 05/08/22 12:50 BP 99/54 05/08/22 12:50 Pulse Ox 97 05/08/22 12:50 FiO2 21 05/07/22 15:27 Intake & Output 05/07/22 05/08/22 05/08/22 18:59 06:59 18:59 Intake Total 237 Output Total 200 2000 Balance -200 -1763 Intake: Oral 237 Output: Urine 900 Stool 200 1100 Other: Voiding Method External Catheter External Catheter - Exam GENERAL DESCRIPTION: An elderly male lying in bed in no distress RESPIRATORY SYSTEM: Unlabored breathing , decreased breath sounds at bases HEART: S1 S2 regular rate and rhythm , ABDOMEN: Soft , no tenderness EXTREMITIES: No edema feet - Labs CBC & Chem 7: 05/08/22 06:53 05/08/22 06:53 Labs: Abnormal Lab Results - Last 24 Hours (Table) 05/07/22 05/07/22 05/07/22 Range/Units 14:20 14:20 14:20 WBC (3.8-10.6) k/uL RBC (4.30-5.90) m/uL Hgb (13.0-17.5) gm/dL Hct (39.0-53.0) % Plt Count (150-450) k/uL Neutrophils # (1.3-7.7) k/uL Lymphocytes # (1.0-4.8) k/uL ESR 103 H (0-15) mm/hr Sodium (137-145) mmol/L Carbon Dioxide (22-30) mmol/L Glucose (74-99) mg/dL POC Glucose (mg/dL) (70-110) mg/dL Calcium (8.4-10.2) mg/dL Iron 12 L (65-175) ug/dL TIBC 188 L (228-460) ug/dL % Saturation 6.45 L (15.00-50.00) Transferrin 134.0 L (204.0-354.0) mg/dL Ferritin 1510.0 H (22.0-322.0) ng/mL Total Protein (PEP) 5.9 L (6.2-8.2) g/dL Vitamin B12 >1800.0 H (200.0-944.0) pg/mL Vitamin D 25-Hydroxy 29.0 L (30.0-100.0) ng/mL Procalcitonin (0.02-0.09) ng/mL 05/07/22 05/07/22 05/08/22 Range/Units 17:29 20:02 06:06 WBC (3.8-10.6) k/uL RBC (4.30-5.90) m/uL Hgb (13.0-17.5) gm/dL Hct (39.0-53.0) % Plt Count (150-450) k/uL Neutrophils # (1.3-7.7) k/uL Lymphocytes # (1.0-4.8) k/uL ESR (0-15) mm/hr Sodium (137-145) mmol/L Carbon Dioxide (22-30) mmol/L Glucose (74-99) mg/dL POC Glucose (mg/dL) 213 H 158 H 143 H (70-110) mg/dL Calcium (8.4-10.2) mg/dL Iron (65-175) ug/dL TIBC (228-460) ug/dL % Saturation (15.00-50.00) Transferrin (204.0-354.0) mg/dL Ferritin (22.0-322.0) ng/mL Total Protein (PEP) (6.2-8.2) g/dL Vitamin B12 (200.0-944.0) pg/mL Vitamin D 25-Hydroxy (30.0-100.0) ng/mL Procalcitonin (0.02-0.09) ng/mL 05/08/22 05/08/22 05/08/22 Range/Units 06:53 06:53 06:53 WBC 14.9 H (3.8-10.6) k/uL RBC 3.71 L (4.30-5.90) m/uL Hgb 10.9 L (13.0-17.5) gm/dL Hct 33.6 L (39.0-53.0) % Plt Count 139 L (150-450) k/uL Neutrophils # 13.8 H (1.3-7.7) k/uL Lymphocytes # 0.4 L (1.0-4.8) k/uL ESR (0-15) mm/hr Sodium 129 L (137-145) mmol/L Carbon Dioxide 20 L (22-30) mmol/L Glucose 120 H (74-99) mg/dL POC Glucose (mg/dL) (70-110) mg/dL Calcium 7.8 L (8.4-10.2) mg/dL Iron (65-175) ug/dL TIBC (228-460) ug/dL % Saturation (15.00-50.00) Transferrin (204.0-354.0) mg/dL Ferritin (22.0-322.0) ng/mL Total Protein (PEP) (6.2-8.2) g/dL Vitamin B12 (200.0-944.0) pg/mL Vitamin D 25-Hydroxy (30.0-100.0) ng/mL Procalcitonin 0.77 H (0.02-0.09) ng/mL 05/08/22 Range/Units 11:38 WBC (3.8-10.6) k/uL RBC (4.30-5.90) m/uL Hgb (13.0-17.5) gm/dL Hct (39.0-53.0) % Plt Count (150-450) k/uL Neutrophils # (1.3-7.7) k/uL Lymphocytes # (1.0-4.8) k/uL ESR (0-15) mm/hr Sodium (137-145) mmol/L Carbon Dioxide (22-30) mmol/L Glucose (74-99) mg/dL POC Glucose (mg/dL) 209 H (70-110) mg/dL Calcium (8.4-10.2) mg/dL Iron (65-175) ug/dL TIBC (228-460) ug/dL % Saturation (15.00-50.00) Transferrin (204.0-354.0) mg/dL Ferritin (22.0-322.0) ng/mL Total Protein (PEP) (6.2-8.2) g/dL Vitamin B12 (200.0-944.0) pg/mL Vitamin D 25-Hydroxy (30.0-100.0) ng/mL Procalcitonin (0.02-0.09) ng/mL Microbiology - Last 24 Hours (Table) 05/06/22 22:10 Blood Culture - Preliminary Blood No Growth after 24 hours 05/06/22 21:50 Blood Culture - Preliminary Blood No Growth after 24 hours Assessment and Plan (1) Fever Current Visit: Yes Status: Acute Code(s): R50.9 - FEVER, UNSPECIFIED [facility] MED Code(s): 781526489 Plan: 1patient presented to hospital with a fever in this patient with no significant localizing signs or symptoms and initial work-up has been negative question of possible abdominal source 2patient did have a CT of abdominal pelvis which did not show any acute abnormality 3patient did have elevated inflammatory markers and white count which is trending down 4patient to continue Unasyn while waiting for the cultures to finalize Time with Patient: Less than 30
[2022-05-08] MEDS ORDERED: GUAR GUM PO PRN (15:45)
[2022-05-08 16:23] LABS: Glucose,Whole Blood 147 mg/dL (70-110)
[2022-05-08] MEDS: ACETAMINOPHEN TAB 325 MG TAB PO PRN (16:33)
[2022-05-08 20:11] LABS: Glucose,Whole Blood 311 mg/dL (70-110)
[2022-05-08] MEDS: INSULIN DETEMIR (LEVEMIR) 100 UNIT/ML SYR SQ SCH (20:44)
[2022-05-08] MEDS: TAMSULOSIN 0.4 MG CAP.ER.24H PO SCH (20:44)
[2022-05-08] MEDS: FERROUS SULFATE 325 MG TAB PO SCH (20:44)
[2022-05-09] MEDS: ACETAMINOPHEN TAB 325 MG TAB PO PRN ×2 (00:39→22:38)
[2022-05-09] MEDS: SODIUM CHLORIDE 0.9% 1,000 ML IV SCH ×3 (02:49→20:59)
[2022-05-09 06:13] LABS: Glucose,Whole Blood 210 mg/dL (70-110)
[2022-05-09] MEDS: INSULIN ASPART (NovoLOG) 100 UNIT/ML VIAL SQ SCH ×4 (06:21→20:59)
[2022-05-09] MEDS: AMPICILLIN-SULBACTAM 3 GM in SODIUM CHLORIDE 0.9% 100 ML IVPB SCH ×4 (06:21→22:38)
[2022-05-09] MEDS: LORATADINE 10 MG TAB PO SCH (08:09)
[2022-05-09] MEDS: APIXABAN 5 MG TAB PO SCH ×2 (08:09→20:59)
[2022-05-09] MEDS: DULoxetine HCL 30 MG CAPSULE.DR PO SCH (08:09)
[2022-05-09] MEDS: FINASTERIDE 5 MG TAB PO SCH (08:09)
[2022-05-09] MEDS: traMADol 50 MG TAB PO PRN ×2 (08:09→20:58)
--- NOTE | 2022-05-09 10:10 | P.PN ---
Subjective Progress Note Date: 05/09/22 Pt c/o increased SOB, upper abd/back pain worsened with inspiration. T max 101.1. no n/v. Appetite diminished Objective - Vital Signs Vital signs: Vital Signs Temp 98.7 F 05/09/22 05:04 Pulse 139 H 05/09/22 04:00 Resp 20 05/09/22 04:00 BP 102/70 05/09/22 04:00 Pulse Ox 93 L 05/09/22 04:00 FiO2 21 05/07/22 15:27 Intake & Output 05/08/22 05/09/22 05/09/22 18:59 06:59 18:59 Intake Total 650 480 Output Total 1600 1100 Balance -950 -620 Intake: Intake, IV Titration 100 Amount Ampicillin-Sulbactam 3 gm 100 In Sodium Chloride 0.9% 100 ml @ 200 mls/hr IVPB Q6HR [facility] Rx#:[id number] Oral 550 480 Output: Urine 400 500 Stool 1200 600 Other: Voiding Method External Catheter External Catheter - Constitutional General appearance: Present: mild distress (Increased RR) - EENT Eyes: Present: EOMI ENT: Present: hearing grossly normal, normal oropharynx - Respiratory Respiratory: bilateral: diminished - Cardiovascular Rhythm: irregularly irregular Heart sounds: normal: S1, S2 - Gastrointestinal General gastrointestinal: Present: normal bowel sounds, soft - Integumentary Integumentary: Present: normal - Neurologic Neurologic: Present: CNII-XII intact - Musculoskeletal Musculoskeletal: Present: generalized weakness - Psychiatric Psychiatric: Present: A&O x's 3 - Labs CBC & Chem 7: 05/08/22 06:53 05/08/22 06:53 Labs: Abnormal Lab Results - Last 24 Hours (Table) 05/08/22 05/08/22 05/08/22 Range/Units 06:53 11:38 16:22 POC Glucose (mg/dL) 209 H 147 H (70-110) mg/dL Procalcitonin 0.77 H (0.02-0.09) ng/mL 05/08/22 05/09/22 Range/Units 20:09 06:12 POC Glucose (mg/dL) 311 H 210 H (70-110) mg/dL Procalcitonin (0.02-0.09) ng/mL Microbiology - Last 24 Hours (Table) 05/06/22 22:10 Blood Culture - Preliminary Blood No Growth after 48 hours 05/06/22 21:50 Blood Culture - Preliminary Blood No Growth after 48 hours Assessment and Plan (1) Fever Narrative/Plan: Recurrent , cultures negative so far, unclear source. Abx per ID Current Visit: Yes Status: Acute Code(s): R50.9 - FEVER, UNSPECIFIED SN[facility] D Code(s): 739581451 (2) Chest wall pain Narrative/Plan: Worse over past 3-4 days, more marked today. Subjectively SOB. Check CTA Current Visit: No Status: Acute Code(s): R07.89 - OTHER CHEST PAIN SNOMED Code(s): 333144813 Plan: Extensive w/u for occult malignancy negative so far, other than non specific chromogranin elevation. 5HIAA which is more specific was negative however. Dotatate PET for carcinoid ordered, pending CT AP this admission again negative for any evidence of malignancy
--- NOTE | 2022-05-09 10:18 | P.PN ---
Subjective This is a pleasant 71 years old male with past medical history of diabetes mellitus, hypertension, chronic anemia, atrial fibrillation on Eliquis blood thinner at home Patient states that she has been losing weight over several months with decrease d appetite, he lost about 50 pounds and his PCP Dr. Lord is working him up, he has scheduled PET scan on May 13. Over the last 3 weeks this been feeling more weak with low appetite. Over the last few days he's been feeling feverish and his checked his temperature at home and he states it was between 101 and 103. He has some coughing and shortness of breath but no chest pain, no GI symptoms like diarrhea or vomiting. 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 He complains from urgency and sometimes dysuria. No n eurological symptoms like headache or dizziness or weakness or numbness. He denies Smoking alcohol or illicit drug Vitals reviewed since admission he has no fever. Patient was hypotensive on admission 83/63 and currently blood pressure 105/69. He is tachycardic 118. He is saturating 94% on room air. showing leukocytosis 17.5, he has chronic leukocytosis since 02/08/2022 at 12.8, at times at 16.6 and then 12.6. Hemoglobin 12. Sodium 124. Acute kidney injury most likely prerenal creatinine 1.6, baseline 1.2 . Liver enzymes not elevated. Urine analysis is negative for infection. Viral test including howell, confluence and RSV viruses are undetected Chest x-ray: No active pulmonary process On admission her received ceftriaxone once daily, Toradol 1 and more than 2.5 L of normal saline. He was admitted with oncology and ID team consult. 05/08/2022 N awake and alert, lying in bed does not look in distress, still feels generally weak, still has low appetite but no other complaint. No dyspnea or cough and No chest pain or abdominal pain, no vomiting. Patient reports watery diarrhea of the right abdomen colostomy back and more frequent. he still have low-grade temperature 100.1 this morning Blood pressure is borderline and slightly tachycardic but creatinine improved down to 1.0. CT of the abdomen and pelvis showing no change in bilateral pleural effusion and atelectasis with no acute abnormality to explain patient's symptoms. Check for C. diff was negative. Patient currently on normal saline at 1 25 mL/h and Unasyn intravenously. No glucose is controlled on Levemir 20 units 05/09/2022 Patient still feels generally weak and still have some loose stool through his colostomy back about twice yesterday, mainly watery with no blood. Other than that he denies any other complaints, no chest pain or dyspnea, no abdominal pain or vomiting. History of tachycardic and febrile and onto 101 today. Labs improved, leukocytosis of 14.9. Blood culture is still pending. CT of the abdomen showing no acute abdominal findings to explain patient wishes symptoms. At least he kept, and with Unasyn and normal saline at 1 25 mL/h. Also he is on home dome of Eliquis for his A. fib. We will consult cardiology today for tachycardia and history of A. fib Objective - Vital Signs Vital signs: Vital Signs Temp 98.7 F 05/09/22 05:04 Pulse 139 H 05/09/22 04:00 Resp 20 05/09/22 04:00 BP 102/70 05/09/22 04:00 Pulse Ox 93 L 05/09/22 04:00 FiO2 21 05/07/22 15:27 Intake & Output 05/08/22 05/09/22 05/09/22 18:59 06:59 18:59 Intake Total 650 480 Output Total 1600 1100 Balance -950 -620 Intake: Intake, IV Titration 100 Amount Ampicillin-Sulbactam 3 gm 100 In Sodium Chloride 0.9% 100 ml @ 200 mls/hr IVPB Q6HR [facility] Rx#:[id number] Oral 550 480 Output: Urine 400 500 Stool 1200 600 Other: Voiding Method External Catheter External Catheter - Exam -GENERAL: The patient is alert and oriented x3, not in any acute distress. Thin built HEENT: Pupils are round and equally reacting to light. EOMI. No scleral icterus. No conjunctival pallor. Normocephalic, atraumatic. No pharyngeal erythema. No thyromegaly. CARDIOVASCULAR: S1 and S2 present. No murmurs, rubs, or gallops. PULMONARY: Chest is clear to auscultation, no wheezing or crackles. -ABDOMEN: Soft, nontender, nondistended, normoactive bowel sounds. No palpable organomegaly. right ileostomy with empty bag MUSCULOSKELETAL: No joint swelling or deformity. EXTREMITIES: No cyanosis, clubbing, or pedal edema. NEUROLOGICAL: Gross neurological examination did not reveal any focal deficits. SKIN: No rashes. no petechiae. - Labs CBC & Chem 7: 05/08/22 06:53 05/08/22 06:53 Labs: Abnormal Lab Results - Last 24 Hours (Table) 05/08/22 05/08/22 05/08/22 Range/Units 06:53 11:38 16:22 POC Glucose (mg/dL) 209 H 147 H (70-110) mg/dL Procalcitonin 0.77 H (0.02-0.09) ng/mL 05/08/22 05/09/22 Range/Units 20:09 06:12 POC Glucose (mg/dL) 311 H 210 H (70-110) mg/dL Procalcitonin (0.02-0.09) ng/mL Microbiology - Last 24 Hours (Table) 05/06/22 22:10 Blood Culture - Preliminary Blood No Growth after 48 hours 05/06/22 21:50 Blood Culture - Preliminary Blood No Growth after 48 hours Assessment and Plan Assessment: Watery diarrhea with no abdominal pain suspicious for gastroenteritis. C. diff is negative Sepsis with fever and leukocytosis. Continue with antibiotics Unasyn. ID team of the case Recent loss of weight with low appetite, workup for possible cancer was unremarkable so far with oncology on the case Hypovolemic hyponatremia acute kidney injury on chronic kidney disease stage III, most likely prerenal. atrial fibrillation on Eliquis blood thinner at home Diabetes mellitus Hypertension Chronic anemia Plan: Continue with antibiotic Unasyn Follow-up culture results, including blood culture. 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 We will start with cautious Levemir 20 units at bedtime and 5 units with meals, with insulin sliding scale Labs and medication were reviewed.. Continue same treatment. Continue with symptomatic treatment. Resume home medication. Monitor labs and vitals. DVT and GI prophylaxis. Further recommendations as per clinical course of the patient DVT prophylaxis: Eliquis GI prophylaxis: Ppi PT/OT: Pending Prognosis is guarded
[2022-05-09 10:25] LABS: Basophils % (A) 0 %; Eosinophils % (A) 0 %; HCT 37.2 % (39.0-53.0); Hypochromasia Slight; Lymphocytes # (A) 0.3 k/uL (1.0-4.8); Lymphocytes % (A) 2 %; MCH 29.1 pg (25.0-35.0); MCHC 32.4 g/dL (31.0-37.0); MCV 89.8 fL (80.0-100.0); Mean Platelet Volume 10.4; Monocytes # (A) 0.4 k/uL (0-1.0); Monocytes % (A) 2 %; Neutrophils # (A) 13.9 k/uL (1.3-7.7); Neutrophils % (A) 95 %; Platelet Count 171 k/uL (150-450); RBC 4.14 m/uL (4.30-5.90); RDW 14.7 % (11.5-15.5); WBC 14.7 k/uL (3.8-10.6)
[2022-05-09 10:34] LABS: Albumin 2.59 g/dL (3.80-4.90); Gamma Globulin 1.01 g/dL (0.70-1.50)
[2022-05-09 10:41] LABS: Calcium 7.9 mg/dL (8.4-10.2); Potassium 4.2 mmol/L (3.5-5.1)
[2022-05-09 11:13] LABS: Free Lambda Lt Chain Qnt, Seru 3.68 mg/dL (0.57-2.63)
[2022-05-09 11:59] LABS: Glucose,Whole Blood 179 mg/dL (70-110)
[2022-05-09] MEDS: PANTOPRAZOLE 40 MG/10 ML VIAL IVP SCH (11:59)
--- NOTE | 2022-05-09 12:09 | CT ---
CT CHEST FOR PULMONARY EMBOLISM. EXAMINATION TYPE: CT angio chest DATE OF EXAM: 05/09/2022 INDICATION: Fever, weakness, and sepsis CT DLP: 325.8 mGycm, Automated exposure control for dose reduction was used. CONTRAST: Patient injected with 100, wasted 30 mL of Isovue 370. COMPARISON: None TECHNIQUE: CT of the chest is performed on a spiral scan at 2 mm thick sections. Study is performed with intravenous contrast timed for evaluation for pulmonary embolism. This will limit additional po rtions of the evaluation. 3-D MIP images reconstructed by the technologist are reviewed on the compu ter in the coronal and sagittal planes. FINDINGS: No persistent filling defects are evident to suggest an acute pulmonary embolism. No mediastinal or hilar adenopathy enlarged by CT criteria is evident. The ascending aorta diameter at the level of the main pulmonary artery is 3.9 cm. The main pulmonary artery diameter at the bifur cation is 3.4 cm. Small bilateral pleural effusions are present. There is adjacent compressive atelectasis at the lung bases greater on the left. There appears to be some streaky atelectasis in the posterior right lung b ase mid lung and in the posterior lateral left lung base. Limited CT section through the upper abdomen are unremarkable. IMPRESSIONS: 1. No acute pulmonary embolism. 2. Small bilateral pleural effusions with adjacent atelectasis. Some additional streak atelectasis li hedy present bilaterally within the mid lungs.
[2022-05-09 16:34] LABS: Glucose,Whole Blood 240 mg/dL (70-110)
[2022-05-09 20:05] LABS: Glucose,Whole Blood 182 mg/dL (70-110)
[2022-05-09] MEDS: FERROUS SULFATE 325 MG TAB PO SCH (20:59)
[2022-05-09] MEDS: TAMSULOSIN 0.4 MG CAP.ER.24H PO SCH (20:59)
[2022-05-09] MEDS: INSULIN DETEMIR (LEVEMIR) 100 UNIT/ML SYR SQ SCH (20:59)
[2022-05-10] MEDS: SODIUM CHLORIDE 0.9% 1,000 ML IV SCH ×2 (03:17→17:45)
[2022-05-10 05:49] LABS: Methylmalonic Acid 0.22 umol/L (<0.40)
[2022-05-10] MEDS: traMADol 50 MG TAB PO PRN ×3 (06:02→22:30)
[2022-05-10] MEDS: AMPICILLIN-SULBACTAM 3 GM in SODIUM CHLORIDE 0.9% 100 ML IVPB SCH ×4 (06:02→23:10)
[2022-05-10 06:05] LABS: Glucose,Whole Blood 94 mg/dL (70-110)
[2022-05-10] MEDS: INSULIN ASPART (NovoLOG) 100 UNIT/ML VIAL SQ SCH ×4 (06:06→20:52)
[2022-05-10] MEDS ORDERED: HYDROmorphone 1 MG/ML 1 ML SYRINGE IVP STA (07:19)
[2022-05-10] MEDS: DULoxetine HCL 30 MG CAPSULE.DR PO SCH (07:58)
[2022-05-10] MEDS: FINASTERIDE 5 MG TAB PO SCH (07:58)
[2022-05-10] MEDS: APIXABAN 5 MG TAB PO SCH ×2 (07:58→20:59)
[2022-05-10] MEDS: LORATADINE 10 MG TAB PO SCH (07:58)
[2022-05-10] MEDS: PANTOPRAZOLE 40 MG/10 ML VIAL IVP SCH (08:11)
[2022-05-10 08:46] LABS: HCT 34.7 % (39.0-53.0); HGB 11.2 gm/dL (13.0-17.5); Hypochromasia Moderate; MCHC 32.1 g/dL (31.0-37.0); MCV 90.5 fL (80.0-100.0); Platelet Count 149 k/uL (150-450); RBC 3.84 m/uL (4.30-5.90); RDW 15.1 % (11.5-15.5); WBC 16.3 k/uL (3.8-10.6)
[2022-05-10] MEDS ORDERED: METOPROLOL TARTRATE 12.5 MG TAB PO SCH (09:00)
[2022-05-10 09:01] LABS: African American GFR (CKD) >90 (>60 ml/min/1.73 sqM); Anion Gap 11 mmol/L; Blood Urea Nitrogen 13 mg/dL (9-20); Calcium 7.5 mg/dL (8.4-10.2); Carbon Dioxide 19 mmol/L (22-30); Chloride 102 mmol/L (98-107); Glucose 97 mg/dL (74-99); Non-African American GFR(CKD) 85 (>60 ml/min/1.73 sqM); Sodium 132 mmol/L (137-145)
--- NOTE | 2022-05-10 09:08 | XR ---
EXAMINATION TYPE: XR chest 1V DATE OF EXAM: 05/10/2022 CLINICAL HISTORY: Difficulty breathing progress study. TECHNIQUE: Single AP portable upright view of the chest is obtained. COMPARISON: CTA chest from one day earlier FINDINGS: Cardiac silhouette size stable and upper limits of normal. Overlying sternal wires and med iastinal clips are redemonstrated. Cyst and ectatic and atherosclerotic thoracic aorta. Left atrial a ppendage clip again seen. Persistent small left greater than right pleural effusions and associated b ibasilar opacities. Osseous structures are intact. IMPRESSION: Small left greater than right pleural effusions and associated bibasilar atelectasis and/ or infiltrates. No significant change from one day earlier.
[2022-05-10] MEDS ORDERED: FUROSEMIDE 10 MG/ML 4 ML VIAL IV STA (09:40)
--- NOTE | 2022-05-10 09:52 | P.CRDCN ---
History of Present Illness Consult date: 05/10/22 History of present illness: HISTORY OF PRESENT ILLNESS: This is a 71-year-old male with a past medical history significant for coronary artery disease with previous CABG 4 in 2020, paroxysmal atrial flutter, hypertension, hyperlipidemia, diabetes, and ulcerative colitis with ileostomy. Patient follows in the office with Dr. Gaitan. We have been asked to see the patient in consultation for sinus tachycardia. Patient presented to the hospital on 05/06 with sepsis picture, fever and malaise, loss of appetite and weight loss. Patient's gives history that his WBC has been elevated for the past 6 months. He has been evaluated by Dr. Little and no determination has been made. He is scheduled for a PET scan as an outpatient on Monday. Patient states that he is feeling ill, no appetite. He has been seen by oncology and also infectious disease maintained on antibiotics. Regarding atrial fibrillation, patient's beta oscar was held on admission due to his initial blood pressure 77/49. Blood pressure today is 99/65 and heart rate 144. * EKG reveals sinus mechanism with no signs of acute ischemia, heart rate 102 on admission, quality assurance monitor body * reveals sinus rhythm with heart rate 110 244CTA of the chest showed no pulmonary embolism. Small lateral pleural effusion with adjacent atelectasis, additional streak atelectasis * CAT scan of the abdomen and pelvis revealed * Laboratory data: WBC 16.3, hemoglobin 11.3, platelet count 149. Sodium 132. Creatinine 0.89.Troponin negative 1. proBNP 4190. * Current home cardiac medications include Lipitor 80 mg daily, Eliquis 5 mg twice a day, metoprolol tartrate 50 mg twice daily * Most recent echocardiogram obtained in February 2021 revealed ejection fraction 40-45%. REVIEW OF SYSTEMS: At the time of my exam: CONSTITUTIONAL: reports fever, for generalized malaise and fatigue HEENT: Denies blurred vision, vision changes, or eye pain. Denies hemoptysis CARDIOVASCULAR: Denies chest pain. Denies orthopnea. Denies PND. Denies palpitations RESPIRATORY: Denies shortness of breath. GASTROINTESTINAL: Denies abdominal pain. Denies nausea or vomiting. reports no appetite HEMATOLOGIC: Denies bleeding disorders. GENITOURINARY: Denies any blood in urine. SKIN: Denies pruitis. Denies rash. PHYSICAL EXAM: VITAL SIGNS: Reviewed. GENERAL: Well-developed in no acute distress. HEENT: Head is normocephalic. Pupils are equal, round. Sclerae anicteric. Mucous membranes of the mouth are somewhat dry. .No JVD or thyromegaly LUNGS: Respirations even and unlabored. Lungs essentially clear to auscultation bilaterally. HEART: Regular rate and rhythm. S1 and S2 heard. Tachycardic. ABDOMEN: Soft. Nondistended. Nontender. EXTREMITIES: Normal range of motion. No clubbing or cyanosis. Peripheral pulses intact. No lower extremity edema NEUROLOGIC: Awake and alert. Oriented x 3. ASSESSMENT: Sepsis picture rule out occult infection, rule out occult malignancy Sinus tachycardia secondary to sepsis and lack of BB(held for hypotension) Coronary artery disease with previous CABG 4 Paroxysmal atrial flutter Hypertension Hyperlipidemia Diabetes Ulcerative colitis with history of ileostomy PLAN: Resume metoprolol at lower dose of 12.5 mg bid and titrate according to heart rate and blood pressure Continue eliquis 5 mg bid Monitor blood pressure Continue cardiac monitoring Further recommendations depending on patient's progress. Nurse practitioner note has been reviewed by physician. Signing provider agrees with the documented findings, assessment, and plan of care. Past Medical History Past Medical History: Atrial Fibrillation, Coronary Artery Disease (CAD), CVA/TIA, Diabetes Mellitus, Eye Disorder, GERD/Reflux, GI Bleed, Hearing Disorder / Deafness, Hyperlipidemia, Hypertension, Prostate Disorder, Renal Disease, Sleep Apnea/CPAP/BIPAP Additional Past Medical History / Comment(s): CVA in 2014 and 2018/some residual balance issues, IDDM type II, ulcerative colitis/had J pouch and later ileostomy, chronic diarrhea/dehydration, ileal polyps, recurrent nephrolithiasis, pyelonephritis, BPH, ANGEL occasionally wears Cpap, chronic low iron, bilaterally [place]/aides, takes eye drops to prevent glaucoma History of Any Multi-Drug Resistant Organisms: None Reported Past Surgical History: Appendectomy, Bowel Resection, Coronary Bypass/CABG, Heart Catheterization, Hernia Repair, Joint Replacement Additional Past Surgical History / Comment(s): 2020 CABG with 4 vessel bypass, colectomy with ileostomy, previous J pouch, colonoscopies, EGD, abdominal hernia/mesh, lithotripsy with R ureteral stent, L partial knee arthroplasty, bilateral cataract removal/lens implants, L eye surgery for detached retina. Past Anesthesia/Blood Transfusion Reactions: No Reported Reaction Additional Past Anesthesia/Blood Transfusion Reaction / Comment(s): PATIENT HAD SURGERY FOR LEFT EYE DETACHED RETINA AND DEVELOPED GAS BUBBLE IN L EYE. HE WAS INSTRUCTED TO NOT RECEIVE NITROUS OXIDE OR RIDE IN A PLANE UNTIL GAS BUBBLE IS GONE. Past Psychological History: Depression Smoking Status: Former smoker Past Alcohol Use History: None Reported Past Drug Use History: None Reported - Past Family History Mother Family Medical History: Cancer, Diabetes Mellitus Additional Family Medical History / Comment(s): Mother at age 84 from [place] Father Additional Family Medical History / Comment(s): Father is with history of coronary artery disease. Brother(s) Family Medical History: Coronary Artery Disease (CAD), Vascular Disorder Additional Family Medical History / Comment(s): Patient has 4 brothers. Two at the age of 44 from coronary artery disease with history of tobacco use and alcohol dependence. One from aneurysm in the chest. Medications and Allergies Home Medications Medication Instructions Recorded Confirmed Type Finasteride [Proscar] 5 mg PO DAILY 02/06/17 05/06/22 History Multivit-Min/FA/Lycopen/Lutein 0.5 tab PO BID 02/06/17 05/06/22 History [Centrum Silver Men Tablet] Tamsulosin [Flomax] 0.4 mg PO HS 02/06/17 05/06/22 History Omeprazole 40 mg PO QAM 12/05/18 05/06/22 History Loratadine [Claritin] 10 mg PO DAILY 08/29/20 05/06/22 History Turmeric Root Extract [Turmeric] 1,000 mg PO BID 08/29/20 05/06/22 History Melatonin 5 mg PO HS PRN tablet 02/14/21 05/06/22 Rx Apixaban [Eliquis] 5 mg PO BID 01/12/22 05/06/22 History Ascorbic Acid [Vitamin C] 500 mg PO DAILY 01/12/22 05/06/22 History Cranberry 450mg 1 tab PO HS 01/12/22 05/06/22 History Latanoprost/Pf [Latanoprost 0.005% 1 drop BOTH EYES HS 01/12/22 05/06/22 History Eye Drop] DULoxetine HCL [Cymbalta] 90 mg PO DAILY 01/15/22 05/06/22 History Acetaminophen Tab [Tylenol] 325 mg PO Q6HR PRN tab 01/18/22 05/06/22 Rx Metoprolol Tartrate [Lopressor] 50 mg PO BID 30 Days #60 tab 01/18/22 05/06/22 Rx Insulin Glargine,Hum.rec.anlog 35 unit SQ HS 03/09/22 05/06/22 History [Basaglar Kwikpen U-100] Insulin Lispro [humaLOG Kwikpen] 10 unit SQ TID-W/MEALS 03/09/22 05/06/22 History Pioglitazone [Actos] 30 mg PO MOWEFRSA 03/09/22 05/06/22 History traMADol HCl [Ultram] 50 mg PO Q6HR PRN 3 Days #12 tab 03/14/22 05/06/22 Rx Cholecalciferol [Vitamin D3 (25 25 mcg PO DAILY 05/06/22 05/06/22 History Mcg = 1000 Iu)] Ferrous Sulfate [Feosol] 325 mg PO HS 05/06/22 05/06/22 History Loperamide [Imodium] 2 - 4 mg PO QID PRN 05/06/22 05/06/22 History Mirabegron [Myrbetriq] 50 mg PO DAILY 05/06/22 05/09/22 History Allergies Allergy/AdvReac Type Severity Reaction Status Date / Time codeine Allergy Rash/Hives Verified 05/06/22 21:19 morphine Allergy Rash/Hives Verified 05/06/22 21:19 Physical Exam Vitals: Vital Signs Temp Pulse Resp BP Pulse Ox 05/10/22 03:42 97.3 F L 110 H 20 99/65 92 L 05/10/22 00:30 101.3 F H 120 H 05/09/22 23:30 101 F H 144 H 22 125/79 93 L 05/09/22 20:00 98.9 F 140 H 24 152/92 93 L 05/09/22 16:24 97.9 F 126 H 18 124/74 96 05/09/22 14:37 98.5 F 05/09/22 11:57 101.1 F H 145 H 16 120/78 93 L Intake and Output 05/09/22 05/10/22 05/10/22 22:59 06:59 14:59 Intake Total 540 240 Output Total 500 725 Balance 40 -485 Intake: Oral 540 240 Output: Urine 500 425 Stool 300 Other: Voiding Method External Catheter External Catheter # Bowel Movements 250 Results 05/10/22 07:34 05/10/22 07:34 Cardiac Enzymes 05/07/22 Range/Units 14:20 Lactate Dehydrogenase 309 L (313-618) U/L CBC 05/09/22 Range/Units 09:43 WBC 14.7 H (3.8-10.6) k/uL RBC 4.14 L (4.30-5.90) m/uL Hgb 12.0 L (13.0-17.5) gm/dL Hct 37.2 L (39.0-53.0) % Plt Count 171 (150-450) k/uL Comprehensive Metabolic Panel 05/09/22 Range/Units 09:43 Sodium 130 L (137-145) mmol/L Potassium 4.2 (3.5-5.1) mmol/L Chloride 99 (98-107) mmol/L Carbon Dioxide 22 (22-30) mmol/L BUN 14 (9-20) mg/dL Creatinine 1.08 (0.66-1.25) mg/dL Glucose 159 H (74-99) mg/dL Calcium 7.9 L (8.4-10.2) mg/dL Current Medications Generic Name Dose Route Start Last Admin Trade Name Freq PRN Reason Stop Dose Admin Acetaminophen 650 mg 05/07/22 14:30 05/09/22 22:38 Acetaminophen Tab 325 Mg Tab PO 650 mg Q4HR PRN Administration Fever and/ or Pain Apixaban 5 mg 05/07/22 09:00 05/10/22 07:58 Apixaban 5 Mg Tab PO 5 mg BID KRISTIN Administration Protocol Dextrose/Water 50 ml 05/07/22 06:34 Dextrose 50% Syringe 50 Ml IVP PER PROTOCOL PRN Hypoglycemia Protocol Dextrose/Water 25 ml 05/07/22 06:34 Dextrose 50% Syringe 50 Ml IVP PER PROTOCOL PRN Hypoglycemia Protocol Duloxetine HCl 90 mg 05/07/22 09:00 05/10/22 07:58 Duloxetine Hcl 30 Mg Capsule.Dr PO 90 mg DAILY KRISTIN Administration Ferrous Sulfate 325 mg 05/07/22 21:00 05/09/22 20:59 Ferrous Sulfate 325 Mg Tab PO 325 mg HS KRISTIN Administration Finasteride 5 mg 05/07/22 09:00 05/10/22 07:58 Finasteride 5 Mg Tab PO 5 mg DAILY KRISTIN Administration Sodium Chloride 1,000 mls @ 125 mls/hr 05/07/22 07:15 05/10/22 03:17 Saline 0.9% IV 125 mls/hr .Q8H KRISTIN Administration Ampicillin Sodium/Sulbactam 100 mls @ 200 mls/hr 05/08/22 00:00 05/10/22 06:02 Sodium 3 gm/ Sodium Chloride IVPB 200 mls/hr Q6HR KRISTIN Administration Protocol Insulin Aspart 0 unit 05/07/22 07:30 05/10/22 06:06 Insulin Aspart (Novolog) 100 Unit/Ml Vial SQ Not Given ACHS [facility] Protocol Insulin Detemir 20 unit 05/07/22 21:00 05/09/22 20:59 Insulin Detemir (Levemir) 100 Unit/Ml Syr SQ 20 unit HS KRISTIN Administration Loratadine 10 mg 05/07/22 09:00 05/10/22 07:58 Loratadine 10 Mg Tab PO 10 mg DAILY KRISTIN Administration Melatonin 5 mg 05/07/22 06:32 Melatonin 5 Mg Tablet PO HS PRN Insomnia Naloxone HCl 0.2 mg 05/07/22 00:38 Naloxone 0.4 Mg/Ml 1 Ml Vial IV Q2M PRN Opioid Reversal Guar Gum 1 each 05/08/22 15:45 PO QID PRN . Ondansetron HCl 4 mg 05/07/22 00:38 Ondansetron 4 Mg/2 Ml Vial IVP Q8HR PRN Nausea And Vomiting Pantoprazole Sodium 40 mg 05/07/22 09:00 05/09/22 11:59 Pantoprazole 40 Mg/10 Ml Vial IVP 40 mg DAILY KRISTIN Administration Tamsulosin HCl 0.4 mg 05/07/22 21:00 05/09/22 20:59 Tamsulosin 0.4 Mg Cap.Er.24h PO 0.4 mg HS KRISTIN Administration Tramadol HCl 50 mg 05/07/22 06:32 05/10/22 06:02 Tramadol 50 Mg Tab PO 50 mg Q6HR PRN Administration Pain Intake and Output 05/09/22 05/10/22 05/10/22 22:59 06:59 14:59 Intake Total 540 240 Output Total 500 725 Balance 40 -485 Intake: Oral 540 240 Output: Urine 500 425 Stool 300 Other: Voiding Method External Catheter External Catheter # Bowel Movements 250 05/09/22 09:43 05/09/22 09:43
--- NOTE | 2022-05-10 10:32 | P.PN ---
Subjective This is a pleasant 71 years old male with past medical history of diabetes mellitus, hypertension, chronic anemia, atrial fibrillation on Eliquis blood thinner at home Patient states that she has been losing weight over several months with decrease d appetite, he lost about 50 pounds and his PCP Dr. Lord is working him up, he has scheduled PET scan on May 13. Over the last 3 weeks this been feeling more weak with low appetite. Over the last few days he's been feeling feverish and his checked his temperature at home and he states it was between 101 and 103. He has some coughing and shortness of breath but no chest pain, no GI symptoms like diarrhea or vomiting. 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 He complains from urgency and sometimes dysuria. No n eurological symptoms like headache or dizziness or weakness or numbness. He denies Smoking alcohol or illicit drug Vitals reviewed since admission he has no fever. Patient was hypotensive on admission 83/63 and currently blood pressure 105/69. He is tachycardic 118. He is saturating 94% on room air. showing leukocytosis 17.5, he has chronic leukocytosis since 02/08/2022 at 12.8, at times at 16.6 and then 12.6. Hemoglobin 12. Sodium 124. Acute kidney injury most likely prerenal creatinine 1.6, baseline 1.2 . Liver enzymes not elevated. Urine analysis is negative for infection. Viral test including howell, confluence and RSV viruses are undetected Chest x-ray: No active pulmonary process On admission her received ceftriaxone once daily, Toradol 1 and more than 2.5 L of normal saline. He was admitted with oncology and ID team consult. 05/08/2022 N awake and alert, lying in bed does not look in distress, still feels generally weak, still has low appetite but no other complaint. No dyspnea or cough and No chest pain or abdominal pain, no vomiting. Patient reports watery diarrhea of the right abdomen colostomy back and more frequent. he still have low-grade temperature 100.1 this morning Blood pressure is borderline and slightly tachycardic but creatinine improved down to 1.0. CT of the abdomen and pelvis showing no change in bilateral pleural effusion and atelectasis with no acute abnormality to explain patient's symptoms. Check for C. diff was negative. Patient currently on normal saline at 1 25 mL/h and Unasyn intravenously. No glucose is controlled on Levemir 20 units 05/09/2022 Patient still feels generally weak and still have some loose stool through his colostomy back about twice yesterday, mainly watery with no blood. Other than that he denies any other complaints, no chest pain or dyspnea, no abdominal pain or vomiting. History of tachycardic and febrile and onto 101 today. Labs improved, leukocytosis of 14.9. Blood culture is still pending. CT of the abdomen showing no acute abdominal findings to explain patient wishes symptoms. At least he kept, and with Unasyn and normal saline at 1 25 mL/h. Also he is on home dome of Eliquis for his A. fib. We will consult cardiology today for tachycardia and history of A. fib 05/10/2022 Patient awake alert, looks tired but answers questions appropriately. Mentation at baseline. Patient was significantly tachypneic this morning, repeat chest x-ray showing no acute infiltrate however there was suspicion of some more congestion and more left pleural effusion compared to admission therefore we will repeat his IV fluids 125 down to 75 mL/h and we will give one-time dose of Lasix. Patient is with no significant fever. Blood pressure 122/77, patient is still tachycardic and metoprolol 12.5 mg resumed yesterday. Cardiology already evaluated the patient. For tachycardia which is mostly secondary to sepsis and holding of beta oscar on admission He denies any other specific complaint. WBC is slightly worse 16,000, hemoglobin of 11.2. Sodium of 132. Creatinine improved down to 0.8. WBC scan is ordered for sepsis. Patient remains on Unasyn and home dose of Eliquis. Review of systems CONSTITUTIONAL: No fever, no malaise, no fatigue. HEENT: No recent visual problems or hearing problems. Denied any sore throat. CARDIOVASCULAR: No orthopnea, PND, no palpitations, no syncope. PULMONARY: No chest wall tenderness, no hemoptysis. GASTROINTESTINAL: No diarrhea, no nausea, no vomiting, no abdominal pain. Normoactive bowel sounds. Active Medications Generic Name Dose Route Start Last Admin Trade Name Freq PRN Reason Stop Dose Admin Acetaminophen 650 mg 05/07/22 14:30 05/09/22 22:38 Acetaminophen Tab 325 Mg Tab PO 650 mg Q4HR PRN Administration Fever and/ or Pain Apixaban 5 mg 05/07/22 09:00 05/10/22 07:58 Apixaban 5 Mg Tab PO 5 mg BID KRISTIN Administration Protocol Dextrose/Water 50 ml 05/07/22 06:34 Dextrose 50% Syringe 50 Ml IVP PER PROTOCOL PRN Hypoglycemia Protocol Dextrose/Water 25 ml 05/07/22 06:34 Dextrose 50% Syringe 50 Ml IVP PER PROTOCOL PRN Hypoglycemia Protocol Duloxetine HCl 90 mg 05/07/22 09:00 05/10/22 07:58 Duloxetine Hcl 30 Mg Capsule.Dr PO 90 mg DAILY KRISTIN Administration Ferrous Sulfate 325 mg 05/07/22 21:00 05/09/22 20:59 Ferrous Sulfate 325 Mg Tab PO 325 mg HS KRISTIN Administration Finasteride 5 mg 05/07/22 09:00 05/10/22 07:58 Finasteride 5 Mg Tab PO 5 mg DAILY KRISTIN Administration Sodium Chloride 1,000 mls @ 75 mls/hr 05/07/22 07:15 05/10/22 03:17 Saline 0.9% IV 125 mls/hr .[id number] KRISTIN Administration Ampicillin Sodium/Sulbactam 100 mls @ 200 mls/hr 05/08/22 00:00 05/10/22 06:02 Sodium 3 gm/ Sodium Chloride IVPB 200 mls/hr Q6HR KRISTIN Administration Protocol Insulin Aspart 0 unit 05/07/22 07:30 05/10/22 06:06 Insulin Aspart (Novolog) 100 Unit/Ml Vial SQ Not Given ACHS [facility] Protocol Insulin Detemir 20 unit 05/07/22 21:00 05/09/22 20:59 Insulin Detemir (Levemir) 100 Unit/Ml Syr SQ 20 unit HS KRISTIN Administration Loratadine 10 mg 05/07/22 09:00 05/10/22 07:58 Loratadine 10 Mg Tab PO 10 mg DAILY KRISTIN Administration Melatonin 5 mg 05/07/22 06:32 Melatonin 5 Mg Tablet PO HS PRN Insomnia Metoprolol Tartrate 12.5 mg 05/10/22 09:00 05/10/22 09:09 Metoprolol Tartrate 12.5 Mg Tab PO 12.5 mg BID KRISTIN Administration Naloxone HCl 0.2 mg 05/07/22 00:38 Naloxone 0.4 Mg/Ml 1 Ml Vial IV Q2M PRN Opioid Reversal Guar Gum 1 each 05/08/22 15:45 PO QID PRN . Ondansetron HCl 4 mg 05/07/22 00:38 Ondansetron 4 Mg/2 Ml Vial IVP Q8HR PRN Nausea And Vomiting Pantoprazole Sodium 40 mg 05/07/22 09:00 05/10/22 08:11 Pantoprazole 40 Mg/10 Ml Vial IVP 40 mg DAILY KRISTIN Administration Tamsulosin HCl 0.4 mg 05/07/22 21:00 05/09/22 20:59 Tamsulosin 0.4 Mg Cap.Er.24h PO 0.4 mg HS KRISTIN Administration Tramadol HCl 50 mg 05/07/22 06:32 05/10/22 06:02 Tramadol 50 Mg Tab PO 50 mg Q6HR PRN Administration Pain Objective - Vital Signs Vital signs: Vital Signs Temp 97.5 F L 05/10/22 08:12 Pulse 126 H 05/10/22 08:12 Resp 18 05/10/22 08:12 BP 122/77 05/10/22 08:12 Pulse Ox 98 05/10/22 08:12 FiO2 21 05/07/22 15:27 Intake & Output 05/09/22 05/10/22 05/10/22 18:59 06:59 18:59 Intake Total 780 118 Output Total 1100 1225 Balance -1100 -445 118 Intake: Oral 780 118 Output: Urine 900 925 Stool 200 300 Other: Voiding Method External Catheter External Catheter # Bowel Movements 600 250 - Exam -GENERAL: The patient is alert and oriented x3, not in any acute distress. Thin built HEENT: Pupils are round and equally reacting to light. EOMI. No scleral icterus. No conjunctival pallor. Normocephalic, atraumatic. No pharyngeal erythema. No thyromegaly. CARDIOVASCULAR: S1 and S2 present. No murmurs, rubs, or gallops. PULMONARY: Chest is clear to auscultation, no wheezing or crackles. -ABDOMEN: Soft, nontender, nondistended, normoactive bowel sounds. No palpable organomegaly. right ileostomy with empty bag MUSCULOSKELETAL: No joint swelling or deformity. EXTREMITIES: No cyanosis, clubbing, or pedal edema. NEUROLOGICAL: Gross neurological examination did not reveal any focal deficits. SKIN: No rashes. no petechiae. - Labs CBC & Chem 7: 05/10/22 07:34 05/10/22 07:34 Labs: Abnormal Lab Results - Last 24 Hours (Table) 05/07/22 05/07/22 05/07/22 Range/Units 14:20 14:20 14:20 WBC (3.8-10.6) k/uL RBC (4.30-5.90) m/uL Hgb (13.0-17.5) gm/dL Hct (39.0-53.0) % Plt Count (150-450) k/uL ESR 103 H (0-15) mm/hr Sodium (137-145) mmol/L Carbon Dioxide (22-30) mmol/L Glucose (74-99) mg/dL POC Glucose (mg/dL) (70-110) mg/dL Calcium (8.4-10.2) mg/dL Iron 12 L (65-175) ug/dL TIBC 188 L (228-460) ug/dL % Saturation 6.45 L (15.00-50.00) Transferrin 134.0 L (204.0-354.0) mg/dL Ferritin 1510.0 H (22.0-322.0) ng/mL Lactate Dehydrogenase 309 L (313-618) U/L Albumin (PEP) (3.80-4.90) g/dL Joluh-1-Duxckocyc (0.10-0.40) g/dL Gzlul-5-Ovhvqkjkf (0.60-1.00) g/dL Vitamin B12 >1800.0 H (200.0-944.0) pg/mL Vitamin D 25-Hydroxy 29.0 L (30.0-100.0) ng/mL RBC Folate 852 H (280 - 791) ng/mL OLI Screen (NEGATIVE) Free [place] LC, Quant (0.33-1.94) mg/dL Free Lambda LC, Quant (0.57-2.63) mg/dL 05/07/22 05/09/22 05/09/22 Range/Units 14:20 09:43 11:54 WBC (3.8-10.6) k/uL RBC (4.30-5.90) m/uL Hgb (13.0-17.5) gm/dL Hct (39.0-53.0) % Plt Count (150-450) k/uL ESR (0-15) mm/hr Sodium 130 L (137-145) mmol/L Carbon Dioxide (22-30) mmol/L Glucose 159 H (74-99) mg/dL POC Glucose (mg/dL) 179 H (70-110) mg/dL Calcium 7.9 L (8.4-10.2) mg/dL Iron (65-175) ug/dL TIBC (228-460) ug/dL % Saturation (15.00-50.00) Transferrin (204.0-354.0) mg/dL Ferritin (22.0-322.0) ng/mL Lactate Dehydrogenase (313-618) U/L Albumin (PEP) 2.59 L (3.80-4.90) g/dL Tskiq-1-Nhvgpvnsw 0.47 H (0.10-0.40) g/dL Osjfe-3-Yhgnztlhn 1.02 H (0.60-1.00) g/dL Vitamin B12 (200.0-944.0) pg/mL Vitamin D 25-Hydroxy (30.0-100.0) ng/mL RBC Folate (280 - 791) ng/mL OLI Screen POSITIVE A (NEGATIVE) Free [place] LC, Quant 7.30 H (0.33-1.94) mg/dL Free Lambda LC, Quant 3.68 H (0.57-2.63) mg/dL 05/09/22 05/09/22 05/10/22 Range/Units 16:33 20:04 07:34 WBC 16.3 H (3.8-10.6) k/uL RBC 3.84 L (4.30-5.90) m/uL Hgb 11.2 L (13.0-17.5) gm/dL Hct 34.7 L (39.0-53.0) % Plt Count 149 L (150-450) k/uL ESR (0-15) mm/hr Sodium (137-145) mmol/L Carbon Dioxide (22-30) mmol/L Glucose (74-99) mg/dL POC Glucose (mg/dL) 240 H 182 H (70-110) mg/dL Calcium (8.4-10.2) mg/dL Iron (65-175) ug/dL TIBC (228-460) ug/dL % Saturation (15.00-50.00) Transferrin (204.0-354.0) mg/dL Ferritin (22.0-322.0) ng/mL Lactate Dehydrogenase (313-618) U/L Albumin (PEP) (3.80-4.90) g/dL Zondm-8-Upydfnanu (0.10-0.40) g/dL Dpvte-5-Vosqanleu (0.60-1.00) g/dL Vitamin B12 (200.0-944.0) pg/mL Vitamin D 25-Hydroxy (30.0-100.0) ng/mL RBC Folate (280 - 791) ng/mL OLI Screen (NEGATIVE) Free [place] LC, Quant (0.33-1.94) mg/dL Free Lambda LC, Quant (0.57-2.63) mg/dL 05/10/22 Range/Units 07:34 WBC (3.8-10.6) k/uL RBC (4.30-5.90) m/uL Hgb (13.0-17.5) gm/dL Hct (39.0-53.0) % Plt Count (150-450) k/uL ESR (0-15) mm/hr Sodium 132 L (137-145) mmol/L Carbon Dioxide 19 L (22-30) mmol/L Glucose (74-99) mg/dL POC Glucose (mg/dL) (70-110) mg/dL Calcium 7.5 L (8.4-10.2) mg/dL Iron (65-175) ug/dL TIBC (228-460) ug/dL % Saturation (15.00-50.00) Transferrin (204.0-354.0) mg/dL Ferritin (22.0-322.0) ng/mL Lactate Dehydrogenase (313-618) U/L Albumin (PEP) (3.80-4.90) g/dL Kabal-1-Wkzpcaqxc (0.10-0.40) g/dL Mjpxu-6-Lxdmswyvl (0.60-1.00) g/dL Vitamin B12 (200.0-944.0) pg/mL Vitamin D 25-Hydroxy (30.0-100.0) ng/mL RBC Folate (280 - 791) ng/mL OLI Screen (NEGATIVE) Free [place] LC, Quant (0.33-1.94) mg/dL Free Lambda LC, Quant (0.57-2.63) mg/dL Microbiology - Last 24 Hours (Table) 05/06/22 22:10 Blood Culture - Preliminary Blood No Growth after 72 hours 05/06/22 21:50 Blood Culture - Preliminary Blood No Growth after 72 hours 05/08/22 17:03 Blood Culture - Preliminary Blood No Growth after 24 hours 05/08/22 17:03 Blood Culture - Preliminary Blood No Growth after 24 hours Assessment and Plan Assessment: Watery diarrhea with no abdominal pain suspicious for gastroenteritis. C. diff is negative. Rule out other causes of sepsis Sepsis with fever and leukocytosis. Continue with antibiotics Unasyn. ID team of the case Recent loss of weight with low appetite, workup for possible cancer was unremarkable so far with oncology on the case Hypovolemic hyponatremia acute kidney injury on chronic kidney disease stage III, most likely prerenal. atrial fibrillation on Eliquis blood thinner at home Diabetes mellitus Hypertension Chronic anemia Plan: Continue with antibiotic Unasyn Follow-up culture results, including blood culture. 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 We will start with cautious Levemir 20 units at bedtime and 5 units with meals, with insulin sliding scale Labs and medication were reviewed.. Continue same treatment. Continue with symptomatic treatment. Resume home medication. Monitor labs and vitals. DVT and GI prophylaxis. Further recommendations as per clinical course of the pat ient DVT prophylaxis: Eliquis GI prophylaxis: Ppi PT/OT: Pending Prognosis is guarded
[2022-05-10 11:47] LABS: Glucose,Whole Blood 149 mg/dL (70-110)
[2022-05-10] MEDS: METOPROLOL TARTRATE 25 MG TAB PO SCH ×2 (12:49→20:59)
[2022-05-10 16:49] LABS: Glucose,Whole Blood 113 mg/dL (70-110)
[2022-05-10 20:09] LABS: Glucose,Whole Blood 150 mg/dL (70-110)
[2022-05-10] MEDS: TAMSULOSIN 0.4 MG CAP.ER.24H PO SCH (20:58)
[2022-05-10] MEDS: INSULIN DETEMIR (LEVEMIR) 100 UNIT/ML SYR SQ SCH (20:59)
[2022-05-10] MEDS: FERROUS SULFATE 325 MG TAB PO SCH (20:59)
[2022-05-11] MEDS: SODIUM CHLORIDE 0.9% 1,000 ML IV SCH ×2 (03:08→17:37)
[2022-05-11 05:57] LABS: Glucose,Whole Blood 104 mg/dL (70-110)
[2022-05-11] MEDS: INSULIN ASPART (NovoLOG) 100 UNIT/ML VIAL SQ SCH ×4 (06:17→20:53)
[2022-05-11] MEDS: AMPICILLIN-SULBACTAM 3 GM in SODIUM CHLORIDE 0.9% 100 ML IVPB SCH ×4 (06:22→23:53)
--- NOTE | 2022-05-11 06:34 | P.PN ---
Subjective Progress Note Date: 05/09/22 Principal diagnosis: Fever Patient is a 71-year-old male with a past medical history significant for diabetes mellitus hypertension patient did have a history of ulcerative colitis status post colectomy and did have ileostomy patient apparently recently being worked up by his oncologist for possible malignancy and the patient is scheduled for a PET scan as the patient did have about 50 pound weight loss.The patient has been brought into the hospital concerning for weakness and a fever apparently has been running a temperature of around 103 F over the last few day s On today's evaluation and that is 05/09/2022, the patient did spike another fever of 101 F this morning, the patient is currently breathing comfortably on room air. The patient denies chest pain shortness of breath or cough no nausea no vomiting and abdominal pain Objective - Vital Signs Vital signs: Vital Signs Temp 99.0 F 05/09/22 08:00 Pulse 128 H 05/09/22 08:00 Resp 22 05/09/22 08:00 BP 115/64 05/09/22 08:00 Pulse Ox 94 L 05/09/22 08:00 FiO2 21 05/07/22 15:27 Intake & Output 05/08/22 05/09/22 05/09/22 18:59 06:59 18:59 Intake Total 650 480 Output Total 1600 1100 Balance -950 -620 Intake: Intake, IV Titration 100 Amount Ampicillin-Sulbactam 3 gm 100 In Sodium Chloride 0.9% 100 ml @ 200 mls/hr IVPB Q6HR [facility] Rx#:[id number] Oral 550 480 Output: Urine 400 500 Stool 1200 600 Other: Voiding Method External Catheter External Catheter External Catheter - Exam GENERAL DESCRIPTION: An elderly male lying in bed in no distress RESPIRATORY SYSTEM: Unlabored breathing , decreased breath sounds at bases HEART: S1 S2 regular rate and rhythm , ABDOMEN: Soft , no tenderness EXTREMITIES: No edema feet - Labs CBC & Chem 7: 05/10/22 07:34 05/10/22 07:34 Labs: Abnormal Lab Results - Last 24 Hours (Table) 05/07/22 05/08/22 05/08/22 Range/Units 14:20 06:53 11:38 WBC (3.8-10.6) k/uL RBC (4.30-5.90) m/uL Hgb (13.0-17.5) gm/dL Hct (39.0-53.0) % Neutrophils # (1.3-7.7) k/uL Lymphocytes # (1.0-4.8) k/uL Sodium (137-145) mmol/L Glucose (74-99) mg/dL POC Glucose (mg/dL) 209 H (70-110) mg/dL Calcium (8.4-10.2) mg/dL Albumin (PEP) 2.59 L (3.80-4.90) g/dL Tiadc-7-Buycpyfdz 0.47 H (0.10-0.40) g/dL Boyyh-5-Hgfsqhnoq 1.02 H (0.60-1.00) g/dL Procalcitonin 0.77 H (0.02-0.09) ng/mL Free [place] LC, Quant 7.30 H (0.33-1.94) mg/dL Free Lambda LC, Quant 3.68 H (0.57-2.63) mg/dL 05/08/22 05/08/22 05/09/22 Range/Units 16:22 20:09 06:12 WBC (3.8-10.6) k/uL RBC (4.30-5.90) m/uL Hgb (13.0-17.5) gm/dL Hct (39.0-53.0) % Neutrophils # (1.3-7.7) k/uL Lymphocytes # (1.0-4.8) k/uL Sodium (137-145) mmol/L Glucose (74-99) mg/dL POC Glucose (mg/dL) 147 H 311 H 210 H (70-110) mg/dL Calcium (8.4-10.2) mg/dL Albumin (PEP) (3.80-4.90) g/dL Kprdf-5-Ysfoatbee (0.10-0.40) g/dL Hloot-5-Xrobrjhfn (0.60-1.00) g/dL Procalcitonin (0.02-0.09) ng/mL Free [place] LC, Quant (0.33-1.94) mg/dL Free Lambda LC, Quant (0.57-2.63) mg/dL 05/09/22 05/09/22 Range/Units 09:43 09:43 WBC 14.7 H (3.8-10.6) k/uL RBC 4.14 L (4.30-5.90) m/uL Hgb 12.0 L (13.0-17.5) gm/dL Hct 37.2 L (39.0-53.0) % Neutrophils # 13.9 H (1.3-7.7) k/uL Lymphocytes # 0.3 L (1.0-4.8) k/uL Sodium 130 L (137-145) mmol/L Glucose 159 H (74-99) mg/dL POC Glucose (mg/dL) (70-110) mg/dL Calcium 7.9 L (8.4-10.2) mg/dL Albumin (PEP) (3.80-4.90) g/dL Lmcnx-1-Vxwafpgfd (0.10-0.40) g/dL Dkwrl-3-Tqwcmrsgs (0.60-1.00) g/dL Procalcitonin (0.02-0.09) ng/mL Free [place] LC, Quant (0.33-1.94) mg/dL Free Lambda LC, Quant (0.57-2.63) mg/dL Microbiology - Last 24 Hours (Table) 05/06/22 22:10 Blood Culture - Preliminary Blood No Growth after 48 hours 05/06/22 21:50 Blood Culture - Preliminary Blood No Growth after 48 hours Assessment and Plan (1) Fever Current Visit: Yes Status: Acute Code(s): R50.9 - FEVER, UNSPECIFIED SNOMED Code(s): 358969028 Plan: 1patient presented to hospital with a fever in this patient with no significant localizing signs or symptoms and initial work-up has been negative question of possible abdominal source 2patient did have a CT of abdominal pelvis which did not show any acute abnorma lity, the patient did have a CT angiogram of the chest that was negative for PE or any pneumonia 3with negative workup so far we will order WBC scan 4patient to continue Unasyn and monitor clinical course closely Time with Patient: Less than 30
--- NOTE | 2022-05-11 06:36 | P.PN ---
Subjective Progress Note Date: 05/10/22 Principal diagnosis: Fever Patient is a 71-year-old male with a past medical history significant for diabetes mellitus hypertension patient did have a history of ulcerative colitis status post colectomy and did have ileostomy patient apparently recently being worked up by his oncologist for possible malignancy and the patient is scheduled for a PET scan as the patient did have about 50 pound weight loss.The patient has been brought into the hospital concerning for weakness and a fever apparently has been running a temperature of around 103 F over the last few day s On today's evaluation and that is 05/09/2022, the patient did spike another fever of 101 F at midnight the patient is afebrile since then, the patient is breathing comfortably on 2 L nasal cannula. The patient denies chest pain shortness of breath or cough no nausea no vomiting and abdominal pain Objective - Vital Signs Vital signs: Vital Signs Temp 97.4 F L 05/10/22 12:27 Pulse 120 H 05/10/22 12:27 Resp 18 05/10/22 12:27 BP 120/66 05/10/22 12:27 Pulse Ox 94 L 05/10/22 12:27 FiO2 21 05/07/22 15:27 Intake & Output 05/09/22 05/10/22 05/10/22 18:59 06:59 18:59 Intake Total 780 236 Output Total 1100 1225 Balance -1100 -445 236 Intake: Oral 780 236 Output: Urine 900 925 Stool 200 300 Other: Voiding Method External Catheter External Catheter External Catheter # Bowel Movements 600 250 - Exam GENERAL DESCRIPTION: An elderly male lying in bed in no distress RESPIRATORY SYSTEM: Unlabored breathing , decreased breath sounds at bases HEART: S1 S2 regular rate and rhythm , ABDOMEN: Soft , no tenderness EXTREMITIES: No edema feet - Labs CBC & Chem 7: 05/10/22 07:34 05/10/22 07:34 Labs: Abnormal Lab Results - Last 24 Hours (Table) 05/07/22 05/07/22 05/09/22 Range/Units 14:20 14:20 16:33 WBC (3.8-10.6) k/uL RBC (4.30-5.90) m/uL Hgb (13.0-17.5) gm/dL Hct (39.0-53.0) % Plt Count (150-450) k/uL Sodium (137-145) mmol/L Carbon Dioxide (22-30) mmol/L POC Glucose (mg/dL) 240 H (70-110) mg/dL Calcium (8.4-10.2) mg/dL RBC Folate 852 H (280 - 791) ng/mL Reverse T3 45.0 H (9.0 - 27.0) ng/dL 05/09/22 05/10/22 05/10/22 Range/Units 20:04 07:34 07:34 WBC 16.3 H (3.8-10.6) k/uL RBC 3.84 L (4.30-5.90) m/uL Hgb 11.2 L (13.0-17.5) gm/dL Hct 34.7 L (39.0-53.0) % Plt Count 149 L (150-450) k/uL Sodium 132 L (137-145) mmol/L Carbon Dioxide 19 L (22-30) mmol/L POC Glucose (mg/dL) 182 H (70-110) mg/dL Calcium 7.5 L (8.4-10.2) mg/dL RBC Folate (280 - 791) ng/mL Reverse T3 (9.0 - 27.0) ng/dL 05/10/22 Range/Units 11:42 WBC (3.8-10.6) k/uL RBC (4.30-5.90) m/uL Hgb (13.0-17.5) gm/dL Hct (39.0-53.0) % Plt Count (150-450) k/uL Sodium (137-145) mmol/L Carbon Dioxide (22-30) mmol/L POC Glucose (mg/dL) 149 H (70-110) mg/dL Calcium (8.4-10.2) mg/dL RBC Folate (280 - 791) ng/mL Reverse T3 (9.0 - 27.0) ng/dL Microbiology - Last 24 Hours (Table) 05/06/22 22:10 Blood Culture - Preliminary Blood No Growth after 72 hours 05/06/22 21:50 Blood Culture - Preliminary Blood No Growth after 72 hours 05/08/22 17:03 Blood Culture - Preliminary Blood No Growth after 24 hours 05/08/22 17:03 Blood Culture - Preliminary Blood No Growth after 24 hours Assessment and Plan (1) Fever Current Visit: Yes Status: Acute Code(s): R50.9 - FEVER, UNSPECIFIED SNOMED Code(s): 783230912 Plan: 1patient presented to hospital with a fever in this patient with no significant localizing signs or symptoms and initial work-up has been negative question of possible abdominal source 2patient did have a CT of abdominal pelvis which did not show any acute abnormality, the patient did have a CT angiogram of the chest that was negative for PE or any pneumonia 3patient was unable to have his WBC scan this morning as the tech was unable to obtain enough blood midline has been requested 4patient to continue Unasyn on waiting further workup to be completed multiple family members at the bedside questions concerned were answered Time with Patient: Less than 30
[2022-05-11] MEDS: METOPROLOL TARTRATE 25 MG TAB PO SCH ×2 (08:37→20:53)
[2022-05-11] MEDS: DULoxetine HCL 30 MG CAPSULE.DR PO SCH (08:37)
[2022-05-11] MEDS: FINASTERIDE 5 MG TAB PO SCH (08:37)
[2022-05-11] MEDS: LORATADINE 10 MG TAB PO SCH (08:37)
[2022-05-11] MEDS: APIXABAN 5 MG TAB PO SCH ×2 (08:37→20:53)
[2022-05-11] MEDS: PANTOPRAZOLE 40 MG/10 ML VIAL IVP SCH (08:38)
--- NOTE | 2022-05-11 09:58 | XR ---
EXAMINATION TYPE: XR ribs bilateral DATE OF EXAM: 05/11/2022 COMPARISON: Chest x-ray from yesterday. CTA chest from 2 days ago. HISTORY: Bilateral rib pain when moving. TECHNIQUE: The frontal and oblique images of the bilateral ribs. FINDINGS: No acute displaced bilateral rib fractures. No suspicious expansile or destructive rib lesi ons are seen. Small bilateral pleural effusions remain present. IMPRESSION: As above.
[2022-05-11 10:12] LABS: Basophils % (A) 0 %; Eosinophils % (A) 0 %; HCT 33.5 % (39.0-53.0); HGB 10.6 gm/dL (13.0-17.5); Hypochromasia Slight; Lymphocytes # (A) 0.3 k/uL (1.0-4.8); Lymphocytes % (A) 2 %; MCHC 31.6 g/dL (31.0-37.0); MCV 88.5 fL (80.0-100.0); Monocytes # (A) 0.3 k/uL (0-1.0); Monocytes % (A) 2 %; Neutrophils # (A) 14.5 k/uL (1.3-7.7); Neutrophils % (A) 94 %; Platelet Count 221 k/uL (150-450); RBC 3.79 m/uL (4.30-5.90); WBC 15.3 k/uL (3.8-10.6)
[2022-05-11 10:29] LABS: ALT 18 U/L (4-49); AST 41 U/L (17-59); African American GFR (CKD) >90 (>60 ml/min/1.73 sqM); Albumin 2.5 g/dL (3.5-5.0); Alkaline Phosphatase 148 U/L (38-126); Anion Gap 6 mmol/L; Bilirubin, Delta 0.6 mg/dL (0.0-0.2); Bilirubin,Unconjugated 0.1 mg/dL (0.0-1.1); Blood Urea Nitrogen 18 mg/dL (9-20); Calcium 7.5 mg/dL (8.4-10.2); Carbon Dioxide 23 mmol/L (22-30); Chloride 97 mmol/L (98-107); Glucose 110 mg/dL (74-99); Non-African American GFR(CKD) 79 (>60 ml/min/1.73 sqM); Potassium 3.8 mmol/L (3.5-5.1); Sodium 126 mmol/L (137-145); Total Bilirubin 0.7 mg/dL (0.2-1.3); Total Protein 5.2 g/dL (6.3-8.2)
[2022-05-11] MEDS ORDERED: SODIUM CHLORIDE 0.9% 500 ML 500 ML IV ONE (10:41)
--- NOTE | 2022-05-11 10:50 | P.PN ---
Subjective This is a pleasant 71 years old male with past medical history of diabetes mellitus, hypertension, chronic anemia, atrial fibrillation on Eliquis blood thinner at home Patient states that she has been losing weight over several months with decrease d appetite, he lost about 50 pounds and his PCP Dr. Lord is working him up, he has scheduled PET scan on May 13. Over the last 3 weeks this been feeling more weak with low appetite. Over the last few days he's been feeling feverish and his checked his temperature at home and he states it was between 101 and 103. He has some coughing and shortness of breath but no chest pain, no GI symptoms like diarrhea or vomiting. 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 He complains from urgency and sometimes dysuria. No n eurological symptoms like headache or dizziness or weakness or numbness. He denies Smoking alcohol or illicit drug Vitals reviewed since admission he has no fever. Patient was hypotensive on admission 83/63 and currently blood pressure 105/69. He is tachycardic 118. He is saturating 94% on room air. showing leukocytosis 17.5, he has chronic leukocytosis since 02/08/2022 at 12.8, at times at 16.6 and then 12.6. Hemoglobin 12. Sodium 124. Acute kidney injury most likely prerenal creatinine 1.6, baseline 1.2 . Liver enzymes not elevated. Urine analysis is negative for infection. Viral test including howell, confluence and RSV viruses are undetected Chest x-ray: No active pulmonary process On admission her received ceftriaxone once daily, Toradol 1 and more than 2.5 L of normal saline. He was admitted with oncology and ID team consult. 05/08/2022 N awake and alert, lying in bed does not look in distress, still feels generally weak, still has low appetite but no other complaint. No dyspnea or cough and No chest pain or abdominal pain, no vomiting. Patient reports watery diarrhea of the right abdomen colostomy back and more frequent. he still have low-grade temperature 100.1 this morning Blood pressure is borderline and slightly tachycardic but creatinine improved down to 1.0. CT of the abdomen and pelvis showing no change in bilateral pleural effusion and atelectasis with no acute abnormality to explain patient's symptoms. Check for C. diff was negative. Patient currently on normal saline at 1 25 mL/h and Unasyn intravenously. No glucose is controlled on Levemir 20 units 05/09/2022 Patient still feels generally weak and still have some loose stool through his colostomy back about twice yesterday, mainly watery with no blood. Other than that he denies any other complaints, no chest pain or dyspnea, no abdominal pain or vomiting. History of tachycardic and febrile and onto 101 today. Labs improved, leukocytosis of 14.9. Blood culture is still pending. CT of the abdomen showing no acute abdominal findings to explain patient wishes symptoms. At least he kept, and with Unasyn and normal saline at 1 25 mL/h. Also he is on home dome of Eliquis for his A. fib. We will consult cardiology today for tachycardia and history of A. fib 05/10/2022 Patient awake alert, looks tired but answers questions appropriately. Mentation at baseline. Patient was significantly tachypneic this morning, repeat chest x-ray showing no acute infiltrate however there was suspicion of some more congestion and more left pleural effusion compared to admission therefore we will repeat his IV fluids 125 down to 75 mL/h and we will give one-time dose of Lasix. Patient is with no significant fever. Blood pressure 122/77, patient is still tachycardic and metoprolol 12.5 mg resumed yesterday. Cardiology already evaluated the patient. For tachycardia which is mostly secondary to sepsis and holding of beta oscar on admission He denies any other specific complaint. WBC is slightly worse 16,000, hemoglobin of 11.2. Sodium of 132. Creatinine improved down to 0.8. WBC scan is ordered for sepsis. Patient remains on Unasyn and home dose of Eliquis. 05/11/2012 Patient still feels generally weak and still felt sick and he still have diarrhea going frequently however he denies abdominal pain or nausea vomiting. He is tolerating diet better last night. However generally he has poor appetite and we will keep monitoring He was complaining from pain and both sides of the rib cage, patient reports history of fall few days prior to hospitalization, rib x-ray was negative. He still has a fever of 99.9 today. Slightly tachycardic and tachypneic. Blood pressure 98/67 Blood pressure was borderline this morning however is still on normal saline 75 mL/h as well as Unasyn. Continue treatment as of Eliquis for his A. fib and RVR. Patient is tachycardia better today after increasing metoprolol to 25 mg twice a day per supervisor cd area, however that may contributing to more slight drop in blood pressure. Objective - Vital Signs Vital signs: Vital Signs Temp 98.7 F 05/11/22 08:35 Pulse 107 H 05/11/22 08:35 Resp 26 H 05/11/22 08:35 BP 98/62 05/11/22 08:35 Pulse Ox 94 L 05/11/22 08:35 FiO2 21 05/07/22 15:27 Intake & Output 05/10/22 05/11/22 05/11/22 18:59 06:59 18:59 Intake Total 236 957 240 Output Total 800 1525 300 Balance -564 -568 -60 Intake: Oral 236 957 240 Output: Urine 300 525 Stool 500 1000 300 Other: Voiding Method External Catheter External Catheter External Catheter # Voids 2 - Exam -GENERAL: The patient is alert and oriented x3, not in any acute distress. Thin built HEENT: Pupils are round and equally reacting to light. EOMI. No scleral icterus. No conjunctival pallor. Normocephalic, atraumatic. No pharyngeal erythema. No thyromegaly. CARDIOVASCULAR: S1 and S2 present. No murmurs, rubs, or gallops. PULMONARY: Chest is clear to auscultation, no wheezing or crackles. -ABDOMEN: Soft, nontender, nondistended, normoactive bowel sounds. No palpable organomegaly. right ileostomy with empty bag MUSCULOSKELETAL: No joint swelling or deformity. EXTREMITIES: No cyanosis, clubbing, or pedal edema. NEUROLOGICAL: Gross neurological examination did not reveal any focal deficits. SKIN: No rashes. no petechiae. - Labs CBC & Chem 7: 05/11/22 08:50 05/11/22 08:50 Labs: Abnormal Lab Results - Last 24 Hours (Table) 05/07/22 05/10/22 05/10/22 Range/Units 14:20 11:42 16:47 WBC (3.8-10.6) k/uL RBC (4.30-5.90) m/uL Hgb (13.0-17.5) gm/dL Hct (39.0-53.0) % Neutrophils # (1.3-7.7) k/uL Lymphocytes # (1.0-4.8) k/uL Sodium (137-145) mmol/L Chloride (98-107) mmol/L Glucose (74-99) mg/dL POC Glucose (mg/dL) 149 H 113 H (70-110) mg/dL Calcium (8.4-10.2) mg/dL Delta Bilirubin (0.0-0.2) mg/dL Alkaline Phosphatase (38-126) U/L Total Protein (6.3-8.2) g/dL Albumin (3.5-5.0) g/dL Reverse T3 45.0 H (9.0 - 27.0) ng/dL 05/10/22 05/11/22 05/11/22 Range/Units 20:07 08:50 08:50 WBC 15.3 H (3.8-10.6) k/uL RBC 3.79 L (4.30-5.90) m/uL Hgb 10.6 L (13.0-17.5) gm/dL Hct 33.5 L (39.0-53.0) % Neutrophils # 14.5 H (1.3-7.7) k/uL Lymphocytes # 0.3 L (1.0-4.8) k/uL Sodium 126 L (137-145) mmol/L Chloride 97 L (98-107) mmol/L Glucose 110 H (74-99) mg/dL POC Glucose (mg/dL) 150 H (70-110) mg/dL Calcium 7.5 L (8.4-10.2) mg/dL Delta Bilirubin 0.6 H (0.0-0.2) mg/dL Alkaline Phosphatase 148 H (38-126) U/L Total Protein 5.2 L (6.3-8.2) g/dL Albumin 2.5 L (3.5-5.0) g/dL Reverse T3 (9.0 - 27.0) ng/dL Microbiology - Last 24 Hours (Table) 05/10/22 16:32 Stool Culture - Preliminary Stool 05/06/22 22:10 Blood Culture - Preliminary Blood No Growth after 96 hours 05/06/22 21:50 Blood Culture - Preliminary Blood No Growth after 96 hours 05/08/22 17:03 Blood Culture - Preliminary Blood No Growth after 48 hours 05/08/22 17:03 Blood Culture - Preliminary Blood No Growth after 48 hours Assessment and Plan Assessment: Watery diarrhea with no abdominal pain suspicious for gastroenteritis. C. diff is negative. Rule out other causes of sepsis Sepsis with fever and leukocytosis. Continue with antibiotics Unasyn. ID team of the case Recent loss of weight with low appetite, workup for possible cancer was unremarkable so far with oncology on the case Hypovolemic hyponatremia acute kidney injury on chronic kidney disease stage III, most likely prerenal. atrial fibrillation on Eliquis blood thinner at home Diabetes mellitus Hypertension Chronic anemia Plan: Continue with antibiotic Unasyn Follow-up culture results, including blood culture. Continue with IV hydration Consult follow up with ID and oncology team Consult supervisor cd area team hold blood pressure medications including metoprolol 50 mg twice daily Lantus 35 units at bedtime and insulin lispro 10 units with meals. We will start with cautious Levemir 20 units at bedtime and 5 units with meals, with insulin sliding scale Labs and medication were reviewed.. Continue same treatment. Continue with symptomatic treatment. Resume home medication. Monitor labs and vitals. DVT and GI prophylaxis. Further recommendations as per clinical course of the patient DVT prophylaxis: Eliquis GI prophylaxis: Ppi PT/OT: Pending Prognosis is guarded
[2022-05-11] MEDS ORDERED: FUROSEMIDE 10 MG/ML 2 ML VIAL IV ONE (10:51)
[2022-05-11 11:36] LABS: Glucose,Whole Blood 149 mg/dL (70-110)
[2022-05-11] MEDS: guaiFENesin-DM 100-10MG/5ML 10 ML CUP PO SCH ×3 (12:24→23:53)
--- NOTE | 2022-05-11 13:04 | CDI ---
Documentation Clarification Form Date: 05/11/2022 12:39:00 PM From: Stefany Thompson RN, CCDS Admit Date: 05/07/2022 12:38:00 AM Patient Name: Steve Morse Visit Number: [id number] Discharge Date: ATTENTION: The Clinical Documentation Specialists (CDI) and [facility] Coding Staff appreciate your assistance in clarifying documentation. Please respond to the clarification below the line at the bottom and electronically sign. The CDI & [facility] Coding staff will review the response and follow-up if needed. Please note: Queries are made part of the Legal Health Record. If you have any questions, please contact the author of this message via ITS. Dr. Michael Escoto Paroxysmal atrial flutter is documented in the consult on 05/10/22. Additional clarification regarding the type of Atrial Flutter is requested. History/Risk factors: Coronary artery disease, Diabetes Clinical Indicators: 71-year-old male with present with fever, fever malaise, loss of appetite and weight loss. EKG/telemetry: sinus mechanism with no signs of acute ischemia, heart rate 102 on admission night monitor reveals sinus rhythm with heart rate 110 per consult. 05/07 chest x-ray: Small lateral pleural effusion with adjacent atelectasis. 05/07 Labs: WBC 16.3 HGB 11.3 Sodium 132. Creatinine 0.89 Troponin negative x1 proBNP 4190 02/2021 ECHO: EF 40-45 % Treatment: Cardiac/Telemetry monitoring Monitor blood pressure Lipitor 80 MG PO Daily, Eliquis 5 MG BID, Metoprolol tartrate 25 MG BID Please clarify the type of Atrial Flutter, if known: [ x ] Typical/Type I [ ] Atypical/Type II [ ] Other, please specify [ ] Unable to determine (Template Last Revised: August 2020) MTDD
--- NOTE | 2022-05-11 14:06 | P.PN ---
Subjective Progress Note Date: 05/11/22 HISTORY OF PRESENT ILLNESS: This is a 71-year-old male with a past medical history significant for coronary artery disease with previous CABG 4 in 2020, paroxysmal atrial flutter, h ypertension, hyperlipidemia, diabetes, and ulcerative colitis with ileostomy. Patient follows in the office with Dr. Gaitan. We have been asked to see the patient in consultation for sinus tachycardia. Patient presented to the hospital on 05/06 with sepsis picture, fever and malaise, loss of appetite and weight loss. Patient's gives history that his WBC has been elevated for the past 6 months. He has been evaluated by Dr. Little and no determination has been made. He is scheduled for a PET scan as an outpatient on Monday. Patient states that he is feeling ill, no appetite. He has been seen by oncology and also infectious disease maintained on antibiotics. Regarding atrial fibrillation, patient's beta oscar was held on admission due to his initial blood pressure 77/49. Blood pressure today is 99/65 and heart rate 144. 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 Small lateral pleural effusion with adjacent atelectasis, additional streak atelectasis * CAT scan of the abdomen and pelvis revealed * Laboratory data: WBC 16.3, hemoglobin 11.3, platelet count 149. Sodium 132. Creatinine 0.89.Troponin negative 1. proBNP 4190. * Current home cardiac medications include Lipitor 80 mg daily, Eliquis 5 mg twice a day, metoprolol tartrate 50 mg twice daily * Most recent echocardiogram obtained in February 2021 revealed ejection fraction 40-45%. 05/11 The patient states that he is feeling much better today from yesterday. He did eat a little bit of breakfast this morning. 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 Plan is to maintain him on Lopressor 25 mg twice daily and continue eliquis. Blood pressure systolic of 90s. Repeat blood work reveals WBC 15.3, hemoglobin 10.6, platelet count 221. Sodium 126, creatinine 0.96. Alkaline phosphatase 148. PHYSICAL EXAM: VITAL SIGNS: Reviewed. GENERAL: Well-developed in no acute distress. HEENT: Head is normocephalic. Pupils are equal, round. Sclerae anicteric. Mucous membranes of the mouth are moist. No JVD or thyromegaly LUNGS: Respirations even and unlabored. Lungs essentially clear to auscultation bilaterally. HEART: Regular rate and rhythm. S1 and S2 heard. ABDOMEN: Soft. Nondistended. Nontender. EXTREMITIES: Normal range of motion. No clubbing or cyanosis. Peripheral pulses intact. No lower extremity edema NEUROLOGIC: Awake and alert. Oriented x 3. ASSESSMENT: Sepsis picture rule out occult infection, rule out occult malignancy Sinus tachycardia secondary to sepsis and lack of BB(held for hypotension) Coronary artery disease with previous CABG 4 Paroxysmal atrial flutter Hypertension Hyperlipidemia Diabetes Ulcerative colitis with history of ileostomy PLAN: Continue metoprolol at lower dose of 12.5 mg bid and titrate according to heart rate and blood pressure Continue eliquis 5 mg bid Monitor blood pressure Continue cardiac monitoring Further recommendations depending on patient's progress. Nurse practitioner note has been reviewed by physician. Signing provider agrees with the documented findings, assessment, and plan of care. Objective - Vital Signs Vital signs: Vital Signs Temp 98.7 F 05/11/22 08:35 Pulse 107 H 05/11/22 08:35 Resp 26 H 05/11/22 08:35 BP 98/62 05/11/22 08:35 Pulse Ox 94 L 05/11/22 08:35 FiO2 21 05/07/22 15:27 Intake & Output 05/10/22 05/11/22 05/11/22 18:59 06:59 18:59 Intake Total 236 957 240 Output Total 800 1525 300 Balance -564 -568 -60 Intake: Oral 236 957 240 Output: Urine 300 525 Stool 500 1000 300 Other: Voiding Method External Catheter External Catheter External Catheter # Voids 2 - Labs CBC & Chem 7: 05/11/22 08:50 05/11/22 08:50 Labs: Abnormal Lab Results - Last 24 Hours (Table) 05/10/22 05/10/22 05/10/22 Range/Units 11:42 16:32 16:47 WBC (3.8-10.6) k/uL RBC (4.30-5.90) m/uL Hgb (13.0-17.5) gm/dL Hct (39.0-53.0) % Neutrophils # (1.3-7.7) k/uL Lymphocytes # (1.0-4.8) k/uL Sodium (137-145) mmol/L Chloride (98-107) mmol/L Glucose (74-99) mg/dL POC Glucose (mg/dL) 149 H 113 H (70-110) mg/dL Calcium (8.4-10.2) mg/dL Delta Bilirubin (0.0-0.2) mg/dL Alkaline Phosphatase (38-126) U/L Total Protein (6.3-8.2) g/dL Albumin (3.5-5.0) g/dL Stool Lactoferrin POSITIVE A (NEGATIVE) 05/10/22 05/11/22 05/11/22 Range/Units 20:07 08:50 08:50 WBC 15.3 H (3.8-10.6) k/uL RBC 3.79 L (4.30-5.90) m/uL Hgb 10.6 L (13.0-17.5) gm/dL Hct 33.5 L (39.0-53.0) % Neutrophils # 14.5 H (1.3-7.7) k/uL Lymphocytes # 0.3 L (1.0-4.8) k/uL Sodium 126 L (137-145) mmol/L Chloride 97 L (98-107) mmol/L Glucose 110 H (74-99) mg/dL POC Glucose (mg/dL) 150 H (70-110) mg/dL Calcium 7.5 L (8.4-10.2) mg/dL Delta Bilirubin 0.6 H (0.0-0.2) mg/dL Alkaline Phosphatase 148 H (38-126) U/L Total Protein 5.2 L (6.3-8.2) g/dL Albumin 2.5 L (3.5-5.0) g/dL Stool Lactoferrin (NEGATIVE) 05/11/22 Range/Units 11:34 WBC (3.8-10.6) k/uL RBC (4.30-5.90) m/uL Hgb (13.0-17.5) gm/dL Hct (39.0-53.0) % Neutrophils # (1.3-7.7) k/uL Lymphocytes # (1.0-4.8) k/uL Sodium (137-145) mmol/L Chloride (98-107) mmol/L Glucose (74-99) mg/dL POC Glucose (mg/dL) 149 H (70-110) mg/dL Calcium (8.4-10.2) mg/dL Delta Bilirubin (0.0-0.2) mg/dL Alkaline Phosphatase (38-126) U/L Total Protein (6.3-8.2) g/dL Albumin (3.5-5.0) g/dL Stool Lactoferrin (NEGATIVE) Microbiology - Last 24 Hours (Table) 05/10/22 16:32 Stool Culture - Preliminary Stool 05/06/22 22:10 Blood Culture - Preliminary Blood No Growth after 96 hours 05/06/22 21:50 Blood Culture - Preliminary Blood No Growth after 96 hours 05/08/22 17:03 Blood Culture - Preliminary Blood No Growth after 48 hours 05/08/22 17:03 Blood Culture - Preliminary Blood No Growth after 48 hours
--- NOTE | 2022-05-11 16:11 | NM ---
EXAMINATION TYPE: NM WBC whole body DATE OF EXAM: 05/11/2022 COMPARISON: Radiograph chest 05/10/2022 HISTORY: 71-year-old male fever of unknown source TECHNIQUE: Following administration of 22.1 mCi Tc99m Ceretec. Whole-body images obtained [address] injection. FINDINGS: Normal physiological tracer activity is noted in the liver and spleen and in the bone marrow of the a xial and appendicular skeleton. There is increased activity within the lungs. There is also tiny focus of activity posteriorly at the mid abdomen. Additional bladder activity is seen. IMPRESSION: 1. Tracer activity in the bilateral lungs could represent variant uptake. Correlate to exclude sympto ms of pneumonia. 2. Bladder uptake may be secondary to untagged technetium. Correlate to exclude cystitis. 3. Additional tiny focus seen posteriorly at the left mid abdomen. Correlate to a exclude any cutaneo us infection here. Given proximity to the kidney, correlate to exclude the possibility of a small foc us of pyelonephritis.
[2022-05-11 16:38] LABS: Glucose,Whole Blood 143 mg/dL (70-110)
[2022-05-11] MEDS: ACETAMINOPHEN TAB 325 MG TAB PO PRN (18:27)
[2022-05-11 20:02] LABS: Glucose,Whole Blood 202 mg/dL (70-110)
--- NOTE | 2022-05-11 20:30 | CA ---
Transthoracic Echo Report Name: Steve Morse Age: 71 Gender: M : 1950 Exam Date: 05/11/2022 08:07 Exam Location: [place] [facility] Ht (in): 71 Wt (lb): 148 Ordering Physician: Azucena Goode Attending/Referring Phys: [id number], Russel Staffing Administrator Josefina Ramirez RDCS Procedure CPT: Indications: LVF Cardiac Hx: Technical Quality: Fair Contrast 1: Total Dose (mL): Contrast 2: Total Dose (mL): MEASUREMENTS (Male / Female) Normal Values 2D ECHO LV Diastolic Diameter PLAX 4.1 cm 4.2 - 5.9 / 3.9 - 5.3 cm LV Systolic Diameter PLAX 3.4 cm IVS Diastolic Thickness 1.1 cm 0.6 - 1.0 / 0.6 - 0.9 cm LVPW Diastolic Thickness 1.0 cm 0.6 - 1.0 / 0.6 - 0.9 cm LV Relative Wall Thickness 0.5 RV Internal Dim ED PLAX 3.3 cm LA Systolic Diameter LX 4.4 cm 3.0 - 4.0 / 2.7 - 3.8 cm LV Diastolic Volume MOD 4C 96.3 cm??? LV Systolic Volume MOD 4C 54.3 cm??? LV Ejection Fraction MOD 4C 43.6 % LV Diastolic Length 4C 9.2 cm LV Systolic Length 4C 7.7 cm LV Diastolic Volume MOD 2C 87.9 cm??? LV Systolic Volume MOD 2C 53.8 cm??? LV Ejection Fraction MOD 2C 38.8 % LV Diastolic Length 2C 8.3 cm LV Systolic Length 2C 7.5 cm LA Volume 53.7 cm??? 18 - 58 / 22 - 52 cm??? M-MODE Aortic Root Diameter MM 3.8 cm MV E Point Septal Separation 1.0 cm AV Cusp Separation MM 1.9 cm DOPPLER AV Peak Velocity 154.9 cm/s AV Peak Gradient 9.6 mmHg AI Peak Velocity 326.1 cm/s AI Peak Gradient 42.5 mmHg AI Pressure Half Time 530.1 ms MV Area PHT 7.1 cm??? MV Deceleration Time 87.4 ms TR Peak Velocity 230.5 cm/s TR Peak Gradient 21.3 mmHg Right Ventricular Systolic Press 25.5 mmHg FINDINGS Left Ventricle Left ventricular ejection fraction is estimated at 50 %. Left ventricular cavity size normal. Mildly increased septal wall thickness. Right Ventricle Mild right ventricular dilatation. Right ventricular systolic pressure within normal limits. Right Atrium Normal right atrial size. Left Atrium Mildly increased left atrial diameter. No evidence for an atrial septal defect. Mitral Valve Mitral valve thickened. Mitral annular calcification. No mitral stenosis, regurgitation or prolapse. Aortic Valve Trileaflet aortic valve. Aortic valve sclerosis. No aortic valve stenosis or regurgitation. Tricuspid Valve Structurally normal tricuspid valve. Mild tricuspid regurgitation. Pulmonic Valve Pulmonic valve not well visualized. Pericardium Normal pericardium. No pericardial effusion. Aorta Mild aortic dilatation at the level of the sinuses of valsalva 38 mm CONCLUSIONS Normal LV size with preserved systolic function. No pericardial effusion. Mild mitral and tricuspid insufficiency. Atypical septal motion Previewed by: Dr. Nadeen Gaitan MD (Electronically Signed) Final Date: 11 May 2022 20:30
[2022-05-11] MEDS: TAMSULOSIN 0.4 MG CAP.ER.24H PO SCH (20:53)
[2022-05-11] MEDS: FERROUS SULFATE 325 MG TAB PO SCH (20:53)
[2022-05-11] MEDS: INSULIN DETEMIR (LEVEMIR) 100 UNIT/ML SYR SQ SCH (20:53)
[2022-05-11] MEDS: traMADol 50 MG TAB PO PRN (23:53)
[2022-05-12 05:59] LABS: Glucose,Whole Blood 72 mg/dL (70-110)
[2022-05-12] MEDS: SODIUM CHLORIDE 0.9% 1,000 ML IV SCH (06:20)
[2022-05-12] MEDS: AMPICILLIN-SULBACTAM 3 GM in SODIUM CHLORIDE 0.9% 100 ML IVPB SCH ×4 (06:25→22:53)
[2022-05-12] MEDS: guaiFENesin-DM 100-10MG/5ML 10 ML CUP PO SCH ×3 (06:26→17:55)
[2022-05-12] MEDS: INSULIN ASPART (NovoLOG) 100 UNIT/ML VIAL SQ SCH ×4 (06:26→20:33)
[2022-05-12] MEDS: METOPROLOL TARTRATE 25 MG TAB PO SCH ×2 (10:36→20:30)
[2022-05-12] MEDS: DULoxetine HCL 30 MG CAPSULE.DR PO SCH (10:36)
[2022-05-12] MEDS: LORATADINE 10 MG TAB PO SCH (10:37)
[2022-05-12] MEDS: FINASTERIDE 5 MG TAB PO SCH (10:37)
[2022-05-12] MEDS: PANTOPRAZOLE 40 MG/10 ML VIAL IVP SCH (10:37)
[2022-05-12] MEDS: APIXABAN 5 MG TAB PO SCH (10:37)
[2022-05-12] MEDS: traMADol 50 MG TAB PO PRN ×2 (10:45→22:53)
[2022-05-12 11:09] LABS: African American GFR (CKD) >90 (>60 ml/min/1.73 sqM); Anion Gap 7 mmol/L; Blood Urea Nitrogen 18 mg/dL (9-20); Calcium 7.6 mg/dL (8.4-10.2); Carbon Dioxide 23 mmol/L (22-30); Chloride 103 mmol/L (98-107); Glucose 90 mg/dL (74-99); Magnesium 1.8 mg/dL (1.6-2.3); Non-African American GFR(CKD) 87 (>60 ml/min/1.73 sqM); Potassium 3.4 mmol/L (3.5-5.1); Sodium 133 mmol/L (137-145)
[2022-05-12 11:46] LABS: Glucose,Whole Blood 117 mg/dL (70-110)
[2022-05-12 13:03] LABS: Basophils % (A) 0 %; Eosinophils # (A) 0.2 k/uL (0-0.7); Eosinophils % (A) 1 %; HCT 33.8 % (39.0-53.0); HGB 10.7 gm/dL (13.0-17.5); Hypochromasia Slight; Lymphocytes # (A) 0.4 k/uL (1.0-4.8); Lymphocytes % (A) 3 %; MCH 28.1 pg (25.0-35.0); MCHC 31.6 g/dL (31.0-37.0); MCV 88.7 fL (80.0-100.0); Mean Platelet Volume 9.7; Monocytes # (A) 0.4 k/uL (0-1.0); Monocytes % (A) 3 %; Neutrophils # (A) 11.4 k/uL (1.3-7.7); Neutrophils % (A) 91 %; Platelet Count 228 k/uL (150-450); RDW 15.1 % (11.5-15.5); WBC 12.5 k/uL (3.8-10.6)
[2022-05-12] MEDS ORDERED: LOPERAMIDE 2 MG CAP PO PRN (13:30)
[2022-05-12] MEDS ORDERED: LOPERAMIDE 2 MG CAP PO STA (13:30)
--- NOTE | 2022-05-12 13:35 | P.PN ---
Subjective This is a pleasant 71 years old male with past medical history of diabetes mellitus, hypertension, chronic anemia, atrial fibrillation on Eliquis blood thinner at home Patient states that she has been losing weight over several months with decrease d appetite, he lost about 50 pounds and his PCP Dr. Lord is working him up, he has scheduled PET scan on May 13. Over the last 3 weeks this been feeling more weak with low appetite. Over the last few days he's been feeling feverish and his checked his temperature at home and he states it was between 101 and 103. He has some coughing and shortness of breath but no chest pain, no GI symptoms like diarrhea or vomiting. 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 He complains from urgency and sometimes dysuria. No n eurological symptoms like headache or dizziness or weakness or numbness. He denies Smoking alcohol or illicit drug Vitals reviewed since admission he has no fever. Patient was hypotensive on admission 83/63 and currently blood pressure 105/69. He is tachycardic 118. He is saturating 94% on room air. showing leukocytosis 17.5, he has chronic leukocytosis since 02/08/2022 at 12.8, at times at 16.6 and then 12.6. Hemoglobin 12. Sodium 124. Acute kidney injury most likely prerenal creatinine 1.6, baseline 1.2 . Liver enzymes not elevated. Urine analysis is negative for infection. Viral test including howell, confluence and RSV viruses are undetected Chest x-ray: No active pulmonary process On admission her received ceftriaxone once daily, Toradol 1 and more than 2.5 L of normal saline. He was admitted with oncology and ID team consult. 05/08/2022 N awake and alert, lying in bed does not look in distress, still feels generally weak, still has low appetite but no other complaint. No dyspnea or cough and No chest pain or abdominal pain, no vomiting. Patient reports watery diarrhea of the right abdomen colostomy back and more frequent. he still have low-grade temperature 100.1 this morning Blood pressure is borderline and slightly tachycardic but creatinine improved down to 1.0. CT of the abdomen and pelvis showing no change in bilateral pleural effusion and atelectasis with no acute abnormality to explain patient's symptoms. Check for C. diff was negative. Patient currently on normal saline at 1 25 mL/h and Unasyn intravenously. No glucose is controlled on Levemir 20 units 05/09/2022 Patient still feels generally weak and still have some loose stool through his colostomy back about twice yesterday, mainly watery with no blood. Other than that he denies any other complaints, no chest pain or dyspnea, no abdominal pain or vomiting. History of tachycardic and febrile and onto 101 today. Labs improved, leukocytosis of 14.9. Blood culture is still pending. CT of the abdomen showing no acute abdominal findings to explain patient wishes symptoms. At least he kept, and with Unasyn and normal saline at 1 25 mL/h. Also he is on home dome of Eliquis for his A. fib. We will consult cardiology today for tachycardia and history of A. fib 05/10/2022 Patient awake alert, looks tired but answers questions appropriately. Mentation at baseline. Patient was significantly tachypneic this morning, repeat chest x-ray showing no acute infiltrate however there was suspicion of some more congestion and more left pleural effusion compared to admission therefore we will repeat his IV fluids 125 down to 75 mL/h and we will give one-time dose of Lasix. Patient is with no significant fever. Blood pressure 122/77, patient is still tachycardic and metoprolol 12.5 mg resumed yesterday. Cardiology already evaluated the patient. For tachycardia which is mostly secondary to sepsis and holding of beta oscar on admission He denies any other specific complaint. WBC is slightly worse 16,000, hemoglobin of 11.2. Sodium of 132. Creatinine improved down to 0.8. WBC scan is ordered for sepsis. Patient remains on Unasyn and home dose of Eliquis. 05/11/2012 Patient still feels generally weak and still felt sick and he still have diarrhea going frequently however he denies abdominal pain or nausea vomiting. He is tolerating diet better last night. However generally he has poor appetite and we will keep monitoring He was complaining from pain and both sides of the rib cage, patient reports history of fall few days prior to hospitalization, rib x-ray was negative. He still has a fever of 99.9 today. Slightly tachycardic and tachypneic. Blood pressure 98/67 Blood pressure was borderline this morning however is still on normal saline 75 mL/h as well as Unasyn. Continue treatment as of Eliquis for his A. fib and RVR. Patient is tachycardia better today after increasing metoprolol to 25 mg twice a day per print support specialist, however that may contributing to more slight drop in blood pressure. 05/12/2012 Patient today is less tachypneic, his breathing little easier, is less tachycardic, blood pressure slightly better 109/71, his fever subsided today. The hydrocele also trending down to 12.5 thousand. Hemoglobin and sodium are stable. Creatinine is normal. WBC scan showing possible pneumonia and cystitis however UA is negative and patient is asymptomatic. Most likely patient sepsis secondary to pneumonia. Patient remains on IV Unasyn. Also he is on home dose of Eliquis no lower the IV fluid rate to 50 mL/h at bedside and updated and QUESTIONS answered PET scan still pending Objective - Vital Signs Vital signs: Vital Signs Temp 98.7 F 05/12/22 08:00 Pulse 94 05/12/22 08:00 Resp 16 05/12/22 08:00 BP 109/71 05/12/22 08:00 Pulse Ox 92 L 05/12/22 08:00 FiO2 21 05/07/22 15:27 Intake & Output 05/11/22 05/12/22 05/12/22 18:59 06:59 18:59 Intake Total 598 540 Output Total 1100 1250 675 Balance -502 -1250 -135 Intake: Oral 598 540 Output: Urine 650 300 Stool 1100 600 100 Urine/Stool Mix 275 Other: Voiding Method External Catheter External Catheter External Catheter - Exam -GENERAL: The patient is alert and oriented x3, not in any acute distress. Thin built HEENT: Pupils are round and equally reacting to light. EOMI. No scleral icterus. No conjunctival pallor. Normocephalic, atraumatic. No pharyngeal erythema. No thyromegaly. CARDIOVASCULAR: S1 and S2 present. No murmurs, rubs, or gallops. PULMONARY: Chest is clear to auscultation, no wheezing or crackles. -ABDOMEN: Soft, nontender, nondistended, normoactive bowel sounds. No palpable organomegaly. right ileostomy with empty bag MUSCULOSKELETAL: No joint swelling or deformity. EXTREMITIES: No cyanosis, clubbing, or pedal edema. NEUROLOGICAL: Gross neurological examination did not reveal any focal deficits. SKIN: No rashes. no petechiae. - Labs CBC & Chem 7: 05/12/22 12:28 05/12/22 09:30 Labs: Abnormal Lab Results - Last 24 Hours (Table) 05/11/22 05/11/22 05/11/22 Range/Units 08:50 16:34 19:59 Sodium (137-145) mmol/L Potassium (3.5-5.1) mmol/L POC Glucose (mg/dL) 143 H 202 H (70-110) mg/dL Calcium (8.4-10.2) mg/dL Procalcitonin 0.61 H (0.02-0.09) ng/mL 05/12/22 05/12/22 Range/Units 09:30 11:45 Sodium 133 L (137-145) mmol/L Potassium 3.4 L (3.5-5.1) mmol/L POC Glucose (mg/dL) 117 H (70-110) mg/dL Calcium 7.6 L (8.4-10.2) mg/dL Procalcitonin (0.02-0.09) ng/mL Microbiology - Last 24 Hours (Table) 05/06/22 22:10 Blood Culture - Preliminary Blood No Growth after 120 hours 05/06/22 21:50 Blood Culture - Preliminary Blood No Growth after 120 hours 05/08/22 17:03 Blood Culture - Preliminary Blood No Growth after 72 hours 05/08/22 17:03 Blood Culture - Preliminary Blood No Growth after 72 hours Assessment and Plan Assessment: Acute healthcare associated pneumonia Sepsis with fever and leukocytosis. Continue with antibiotics Unasyn. ID team of the case Watery diarrhea with no abdominal pain suspicious for reactive gastroenteritis. C. diff is negative. Recent loss of weight with low appetite, workup for possible cancer was unremarkable so far with oncology on the case, but this can is pending Hypovolemic hyponatremia acute kidney injury on chronic kidney disease stage III, most likely prerenal. atrial fibrillation on Eliquis blood thinner at home Diabetes mellitus Hypertension Chronic anemia Plan: Continue with antibiotic Unasyn Follow-up culture results, including blood culture. Continue with IV hydration Consult follow up with ID and oncology team Consult print support specialist team Continue with metoprolol 25 mg twice daily Lantus 35 units at bedtime and insulin lispro 10 units with meals. We will start with cautious Levemir 20 units at bedtime and 5 units with meals, with insulin sliding scale Labs and medication were reviewed.. Continue same treatment. Continue with symptomatic treatment. Resume home medication. Monitor labs and vitals. DVT and GI prophylaxis. Further recommendations as per clinical course of the patient DVT prophylaxis: Eliquis GI prophylaxis: Ppi PT/OT: Pending Prognosis is guarded
--- NOTE | 2022-05-12 13:59 | PN ---
PROGRESS NOTE SUBJECTIVE: A 71-year-old gentleman who is admitted to hospital with weight loss, fatigue, and not feeling well, underwent extensive workup so far and is currently on antibiotics. The patient has history of atrial fibrillation, is currently on Eliquis. We were involved in his care because his heart rate was elevated when he first came. He is doing better from that standpoint. OBJECTIVE: VITAL SIGNS: Heart rate is 90 beats per minute, blood pressure is 110/70, respiratory rate is 16. NECK: There is no jugular venous distention. CHEST: Reveals good air entry bilaterally. HEART: Reveals first and second heart sounds. No gallop. ABDOMEN: Soft. EXTREMITIES: Did not reveal any edema. Peripheral pulses are felt. LABS: Show a creatinine of 0.8. MEDICATIONS: The patient is currently on, 1. Eliquis 5 b.i.d. 2. Insulin. 3. Lopressor 25 b.i.d. ASSESSMENT: 1. Paroxysmal atrial fibrillation. 2. History of weight loss, workup in progress. 3. Possible infection. PLAN: From cardiac standpoint, his echo looks good. He will continue current medications. Heart rate is better controlled. MMODL / IJN: [id number] /
[2022-05-12 16:28] LABS: Glucose,Whole Blood 161 mg/dL (70-110)
[2022-05-12] MEDS: POTASSIUM CHLORIDE ER 20 MEQ TAB.ER PO SCH ×2 (17:36→17:56)
[2022-05-12] MEDS: FERROUS SULFATE 325 MG TAB PO SCH (20:30)
[2022-05-12] MEDS: TAMSULOSIN 0.4 MG CAP.ER.24H PO SCH (20:30)
[2022-05-12 20:31] LABS: Glucose,Whole Blood 153 mg/dL (70-110)
[2022-05-12] MEDS: INSULIN DETEMIR (LEVEMIR) 100 UNIT/ML SYR SQ SCH (20:31)
--- NOTE | 2022-05-12 23:50 | P.PN ---
Subjective Progress Note Date: 05/11/22 Principal diagnosis: Fever Patient is a 71-year-old male with a past medical history significant for diabetes mellitus hypertension patient did have a history of ulcerative colitis status post colectomy and did have ileostomy patient apparently recently being worked up by his oncologist for possible malignancy and the patient is scheduled for a PET scan as the patient did have about 50 pound weight loss.The patient has been brought into the hospital concerning for weakness and a fever apparently has been running a temperature of around 103 F over the last few day s On today's evaluation and that is 05/10/2022, the patient did have a low-grade fever of 99.9F at 4 AM the patient is afebrile since then, the patient is breathing comfortably on 2 L nasal cannula. The patient denies chest pain shortness of breath or cough no nausea no vomiting and abdominal pain Objective - Vital Signs Vital signs: Vital Signs Temp 98.7 F 05/11/22 08:35 Pulse 107 H 05/11/22 08:35 Resp 26 H 05/11/22 08:35 BP 98/62 05/11/22 08:35 Pulse Ox 94 L 05/11/22 08:35 FiO2 21 05/07/22 15:27 Intake & Output 05/10/22 05/11/22 05/11/22 18:59 06:59 18:59 Intake Total 236 957 240 Output Total 800 1525 300 Balance -564 -568 -60 Intake: Oral 236 957 240 Output: Urine 300 525 Stool 500 1000 300 Other: Voiding Method External Catheter External Catheter External Catheter # Voids 2 - Exam GENERAL DESCRIPTION: An elderly male lying in bed in no distress RESPIRATORY SYSTEM: Unlabored breathing , decreased breath sounds at bases HEART: S1 S2 regular rate and rhythm , ABDOMEN: Soft , no tenderness EXTREMITIES: No edema feet - Labs CBC & Chem 7: 05/12/22 12:28 05/12/22 09:30 Labs: Abnormal Lab Results - Last 24 Hours (Table) 05/10/22 05/10/22 05/10/22 Range/Units 16:32 16:47 20:07 WBC (3.8-10.6) k/uL RBC (4.30-5.90) m/uL Hgb (13.0-17.5) gm/dL Hct (39.0-53.0) % Neutrophils # (1.3-7.7) k/uL Lymphocytes # (1.0-4.8) k/uL Sodium (137-145) mmol/L Chloride (98-107) mmol/L Glucose (74-99) mg/dL POC Glucose (mg/dL) 113 H 150 H (70-110) mg/dL Calcium (8.4-10.2) mg/dL Delta Bilirubin (0.0-0.2) mg/dL Alkaline Phosphatase (38-126) U/L Total Protein (6.3-8.2) g/dL Albumin (3.5-5.0) g/dL Stool Lactoferrin POSITIVE A (NEGATIVE) 05/11/22 05/11/22 05/11/22 Range/Units 08:50 08:50 11:34 WBC 15.3 H (3.8-10.6) k/uL RBC 3.79 L (4.30-5.90) m/uL Hgb 10.6 L (13.0-17.5) gm/dL Hct 33.5 L (39.0-53.0) % Neutrophils # 14.5 H (1.3-7.7) k/uL Lymphocytes # 0.3 L (1.0-4.8) k/uL Sodium 126 L (137-145) mmol/L Chloride 97 L (98-107) mmol/L Glucose 110 H (74-99) mg/dL POC Glucose (mg/dL) 149 H (70-110) mg/dL Calcium 7.5 L (8.4-10.2) mg/dL Delta Bilirubin 0.6 H (0.0-0.2) mg/dL Alkaline Phosphatase 148 H (38-126) U/L Total Protein 5.2 L (6.3-8.2) g/dL Albumin 2.5 L (3.5-5.0) g/dL Stool Lactoferrin (NEGATIVE) Microbiology - Last 24 Hours (Table) 05/10/22 16:32 Stool Culture - Preliminary Stool 05/06/22 22:10 Blood Culture - Preliminary Blood No Growth after 96 hours 05/06/22 21:50 Blood Culture - Preliminary Blood No Growth after 96 hours 05/08/22 17:03 Blood Culture - Preliminary Blood No Growth after 48 hours 05/08/22 17:03 Blood Culture - Preliminary Blood No Growth after 48 hours Assessment and Plan (1) Fever Current Visit: Yes Status: Acute Code(s): R50.9 - FEVER, UNSPECIFIED SNOMED Code(s): 609723937 Plan: 1patient presented to hospital with a fever in this patient with no significant localizing signs or symptoms and initial work-up has been negative question of possible abdominal source 2patient did have a CT of abdominal pelvis which did not show any acute abnormality, the patient did have a CT angiogram of the chest that was negative for PE or any pneumonia 3patient did have WBC scan this morning with report currently pending scan will be reviewed with the radiologist in the a.m. 4patient to continue Unasyn and monitor clinical course closely Time with Patient: Less than 30
--- NOTE | 2022-05-12 23:53 | P.PN ---
Subjective Progress Note Date: 05/12/22 Principal diagnosis: Fever Patient is a 71-year-old male with a past medical history significant for diabetes mellitus hypertension patient did have a history of ulcerative colitis status post colectomy and did have ileostomy patient apparently recently being worked up by his oncologist for possible malignancy and the patient is scheduled for a PET scan as the patient did have about 50 pound weight loss.The patient has been brought into the hospital concerning for weakness and a fever apparently has been running a temperature of around 103 F over the last few day s On today's evaluation and that is 05/12/2022 the patient is afebrile for more than 24 hours , the patient is breathing comfortably, the patient denies having any chest pain occasional dry cough no nausea no vomiting no abdominal pain no diarrhea Objective - Vital Signs Vital signs: Vital Signs Temp 98.7 F 05/12/22 08:00 Pulse 94 05/12/22 08:00 Resp 16 05/12/22 08:00 BP 109/71 05/12/22 08:00 Pulse Ox 92 L 05/12/22 08:00 FiO2 21 05/07/22 15:27 Intake & Output 05/11/22 05/12/22 05/12/22 18:59 06:59 18:59 Intake Total 598 540 Output Total 1100 1250 675 Balance -502 -1250 -135 Intake: Oral 598 540 Output: Urine 650 300 Stool 1100 600 100 Urine/Stool Mix 275 Other: Voiding Method External Catheter External Catheter External Catheter - Exam GENERAL DESCRIPTION: An elderly male lying in bed in no distress RESPIRATORY SYSTEM: Unlabored breathing , decreased breath sounds at bases HEART: S1 S2 regular rate and rhythm , ABDOMEN: Soft , no tenderness EXTREMITIES: No edema feet - Labs CBC & Chem 7: 05/12/22 12:28 05/12/22 09:30 Labs: Abnormal Lab Results - Last 24 Hours (Table) 05/11/22 05/11/22 05/11/22 Range/Units 08:50 16:34 19:59 WBC (3.8-10.6) k/uL RBC (4.30-5.90) m/uL Hgb (13.0-17.5) gm/dL Hct (39.0-53.0) % Neutrophils # (1.3-7.7) k/uL Lymphocytes # (1.0-4.8) k/uL Sodium (137-145) mmol/L Potassium (3.5-5.1) mmol/L POC Glucose (mg/dL) 143 H 202 H (70-110) mg/dL Calcium (8.4-10.2) mg/dL Procalcitonin 0.61 H (0.02-0.09) ng/mL 05/12/22 05/12/22 05/12/22 Range/Units 09:30 11:45 12:28 WBC 12.5 H (3.8-10.6) k/uL RBC 3.80 L (4.30-5.90) m/uL Hgb 10.7 L (13.0-17.5) gm/dL Hct 33.8 L (39.0-53.0) % Neutrophils # 11.4 H (1.3-7.7) k/uL Lymphocytes # 0.4 L (1.0-4.8) k/uL Sodium 133 L (137-145) mmol/L Potassium 3.4 L (3.5-5.1) mmol/L POC Glucose (mg/dL) 117 H (70-110) mg/dL Calcium 7.6 L (8.4-10.2) mg/dL Procalcitonin (0.02-0.09) ng/mL Microbiology - Last 24 Hours (Table) 05/06/22 22:10 Blood Culture - Preliminary Blood No Growth after 120 hours 05/06/22 21:50 Blood Culture - Preliminary Blood No Growth after 120 hours 05/08/22 17:03 Blood Culture - Preliminary Blood No Growth after 72 hours 05/08/22 17:03 Blood Culture - Preliminary Blood No Growth after 72 hours Assessment and Plan (1) Fever Current Visit: Yes Status: Acute Code(s): R50.9 - FEVER, UNSPECIFIED SNOM ED Code(s): 887810364 Plan: 1patient presented to hospital with a fever in this patient with no significant localizing signs or symptoms and initial work-up has been negative , patient did have a CT of abdominal pelvis as well as CT angiogram of the chest that was negative for any DVT or acute source of infection both CTs were reviewed with the radiologist, there is L 1 level kyphoplasty but no edema and the WBC scan did not point towards any a single focus of infection. 2with overall resolution of his fever and the white count is trending down to 1 2,000 today we will continue the patient on Unasyn and will transition to oral Augmentin on discharge 3case was discussed with his oncologist was currently waiting for octreotide PET scan looking for carcinoid syndrome which if negative plan will be to do a bone marrow biopsy in the Outpatient setting Multiple family members were at the bedside their questions and concerns were answered in Layman terms Time with Patient: Greater than 30
[2022-05-13] MEDS: SODIUM CHLORIDE 0.9% 1,000 ML IV SCH ×2 (00:52→09:24)
[2022-05-13] MEDS: guaiFENesin-DM 100-10MG/5ML 10 ML CUP PO SCH ×4 (01:00→17:30)
[2022-05-13] MEDS: AMPICILLIN-SULBACTAM 3 GM in SODIUM CHLORIDE 0.9% 100 ML IVPB SCH ×4 (05:50→22:59)
[2022-05-13 06:03] LABS: Glucose,Whole Blood 128 mg/dL (70-110)
[2022-05-13] MEDS: INSULIN ASPART (NovoLOG) 100 UNIT/ML VIAL SQ SCH ×4 (06:06→20:11)
[2022-05-13 07:31] LABS: Basophils % (A) 0 %; Eosinophils # (A) 0.2 k/uL (0-0.7); Eosinophils % (A) 2 %; HCT 31.1 % (39.0-53.0); HGB 9.9 gm/dL (13.0-17.5); Hypochromasia Slight; Lymphocytes # (A) 0.5 k/uL (1.0-4.8); Lymphocytes % (A) 5 %; MCH 28.5 pg (25.0-35.0); MCHC 31.8 g/dL (31.0-37.0); MCV 89.6 fL (80.0-100.0); Mean Platelet Volume 9.3; Monocytes # (A) 0.2 k/uL (0-1.0); Monocytes % (A) 3 %; Neutrophils # (A) 8.3 k/uL (1.3-7.7); Neutrophils % (A) 89 %; Platelet Count 260 k/uL (150-450); RBC 3.47 m/uL (4.30-5.90); RDW 15.1 % (11.5-15.5); WBC 9.4 k/uL (3.8-10.6)
[2022-05-13 07:47] LABS: African American GFR (CKD) >90 (>60 ml/min/1.73 sqM); Anion Gap 4 mmol/L; Blood Urea Nitrogen 15 mg/dL (9-20); Calcium 7.3 mg/dL (8.4-10.2); Carbon Dioxide 25 mmol/L (22-30); Chloride 105 mmol/L (98-107); Glucose 99 mg/dL (74-99); Non-African American GFR(CKD) 88 (>60 ml/min/1.73 sqM); Potassium 3.5 mmol/L (3.5-5.1); Sodium 134 mmol/L (137-145)
--- NOTE | 2022-05-13 08:35 | XR ---
EXAMINATION TYPE: XR chest 1V DATE OF EXAM: 05/13/2022 COMPARISON: 05/10/2022 HISTORY: 71 year-old male shortness of breath TECHNIQUE: Single frontal view of the chest is obtained. FINDINGS: Median sternotomy wires post-CABG clips in the mediastinum. Heart borderline enlarged. Small left ple ural effusion with retrocardiac and left basilar opacity. Mild interstitial opacity at the right lowe r lung as well. Aeration to be slightly worsening at the left midlung level. IMPRESSION: Similar small left pleural effusion with bibasilar atelectasis and/or consolidation, left greater kimberly n right. Aeration slightly worsening at the left mid lung now.
[2022-05-13] MEDS: DULoxetine HCL 30 MG CAPSULE.DR PO SCH (09:21)
[2022-05-13] MEDS: PANTOPRAZOLE 40 MG/10 ML VIAL IVP SCH (09:22)
[2022-05-13] MEDS: FINASTERIDE 5 MG TAB PO SCH (09:22)
[2022-05-13] MEDS: LORATADINE 10 MG TAB PO SCH (09:22)
[2022-05-13] MEDS: METOPROLOL TARTRATE 25 MG TAB PO SCH ×2 (09:24→20:12)
[2022-05-13] MEDS: traMADol 50 MG TAB PO PRN (09:31)
[2022-05-13 11:53] LABS: Glucose,Whole Blood 94 mg/dL (70-110)
--- NOTE | 2022-05-13 12:43 | P.PN ---
Subjective This is a pleasant 71 years old male with past medical history of diabetes mellitus, hypertension, chronic anemia, atrial fibrillation on Eliquis blood thinner at home Patient states that she has been losing weight over several months with decrease d appetite, he lost about 50 pounds and his PCP Dr. Lord is working him up, he has scheduled PET scan on May 13. Over the last 3 weeks this been feeling more weak with low appetite. Over the last few days he's been feeling feverish and his checked his temperature at home and he states it was between 101 and 103. He has some coughing and shortness of breath but no chest pain, no GI symptoms like diarrhea or vomiting. 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 He complains from urgency and sometimes dysuria. No n eurological symptoms like headache or dizziness or weakness or numbness. He denies Smoking alcohol or illicit drug Vitals reviewed since admission he has no fever. Patient was hypotensive on admission 83/63 and currently blood pressure 105/69. He is tachycardic 118. He is saturating 94% on room air. showing leukocytosis 17.5, he has chronic leukocytosis since 02/08/2022 at 12.8, at times at 16.6 and then 12.6. Hemoglobin 12. Sodium 124. Acute kidney injury most likely prerenal creatinine 1.6, baseline 1.2 . Liver enzymes not elevated. Urine analysis is negative for infection. Viral test including howell, confluence and RSV viruses are undetected Chest x-ray: No active pulmonary process On admission her received ceftriaxone once daily, Toradol 1 and more than 2.5 L of normal saline. He was admitted with oncology and ID team consult. 05/08/2022 N awake and alert, lying in bed does not look in distress, still feels generally weak, still has low appetite but no other complaint. No dyspnea or cough and No chest pain or abdominal pain, no vomiting. Patient reports watery diarrhea of the right abdomen colostomy back and more frequent. he still have low-grade temperature 100.1 this morning Blood pressure is borderline and slightly tachycardic but creatinine improved down to 1.0. CT of the abdomen and pelvis showing no change in bilateral pleural effusion and atelectasis with no acute abnormality to explain patient's symptoms. Check for C. diff was negative. Patient currently on normal saline at 1 25 mL/h and Unasyn intravenously. No glucose is controlled on Levemir 20 units 05/09/2022 Patient still feels generally weak and still have some loose stool through his colostomy back about twice yesterday, mainly watery with no blood. Other than that he denies any other complaints, no chest pain or dyspnea, no abdominal pain or vomiting. History of tachycardic and febrile and onto 101 today. Labs improved, leukocytosis of 14.9. Blood culture is still pending. CT of the abdomen showing no acute abdominal findings to explain patient wishes symptoms. At least he kept, and with Unasyn and normal saline at 1 25 mL/h. Also he is on home dome of Eliquis for his A. fib. We will consult cardiology today for tachycardia and history of A. fib 05/10/2022 Patient awake alert, looks tired but answers questions appropriately. Mentation at baseline. Patient was significantly tachypneic this morning, repeat chest x-ray showing no acute infiltrate however there was suspicion of some more congestion and more left pleural effusion compared to admission therefore we will repeat his IV fluids 125 down to 75 mL/h and we will give one-time dose of Lasix. Patient is with no significant fever. Blood pressure 122/77, patient is still tachycardic and metoprolol 12.5 mg resumed yesterday. Cardiology already evaluated the patient. For tachycardia which is mostly secondary to sepsis and holding of beta oscar on admission He denies any other specific complaint. WBC is slightly worse 16,000, hemoglobin of 11.2. Sodium of 132. Creatinine improved down to 0.8. WBC scan is ordered for sepsis. Patient remains on Unasyn and home dose of Eliquis. 05/11/2012 Patient still feels generally weak and still felt sick and he still have diarrhea going frequently however he denies abdominal pain or nausea vomiting. He is tolerating diet better last night. However generally he has poor appetite and we will keep monitoring He was complaining from pain and both sides of the rib cage, patient reports history of fall few days prior to hospitalization, rib x-ray was negative. He still has a fever of 99.9 today. Slightly tachycardic and tachypneic. Blood pressure 98/67 Blood pressure was borderline this morning however is still on normal saline 75 mL/h as well as Unasyn. Continue treatment as of Eliquis for his A. fib and RVR. 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 05/12/2012 Patient today is less tachypneic, his breathing little easier, is less tachycardic, blood pressure slightly better 109/71, his fever subsided today. The hydrocele also trending down to 12.5 thousand. Hemoglobin and sodium are stable. Creatinine is normal. WBC scan showing possible pneumonia and cystitis however UA is negative and patient is asymptomatic. Most likely patient sepsis secondary to pneumonia. Patient remains on IV Unasyn. Also he is on home dose of Eliquis no lower the IV fluid rate to 50 mL/h at bedside and updated and QUESTIONS answered PET scan still pending 05/13/22 Patient most dyspneic and tachypneic today, his breathing is more quietly, denies any coughing, he says that his pain on the left side have resolved completely but on the right side still there. He is saturating 94% on 2 L oxygen via nasal cannula However chest x-ray today: showing similar small left pleural effusion with bibasilar atelectasis and/or consolidation, left greater than right. Radiation slightly worsening at the left mid lung now Patient still has diarrhea despite started him on the per minute Discussed the case with ID team Oncology team also on the case for loss of weight and others, they are following for PET scan and further workup. Sugar is better controlled Objective - Vital Signs Vital signs: Vital Signs Temp 97.4 F L 05/13/22 12:00 Pulse 84 05/13/22 12:00 Resp 18 05/13/22 12:00 BP 104/68 05/13/22 12:00 Pulse Ox 94 L 05/13/22 12:00 FiO2 21 05/07/22 15:27 Intake & Output 05/12/22 05/13/22 05/13/22 18:59 06:59 18:59 Intake Total 540 240 Output Total 1775 400 600 Balance -1235 -400 -360 Intake: Oral 540 240 Output: Urine 500 400 Stool 1000 600 Urine/Stool Mix 275 Other: Voiding Method External Catheter External Catheter External Catheter # Voids 1 - Exam -GENERAL: The patient is alert and oriented x3, not in any acute distress. Thin built HEENT: Pupils are round and equally reacting to light. EOMI. No scleral icterus. No conjunctival pallor. Normocephalic, atraumatic. No pharyngeal erythema. No th yromegaly. CARDIOVASCULAR: S1 and S2 present. No murmurs, rubs, or gallops. PULMONARY: Chest is clear to auscultation, no wheezing or crackles. -ABDOMEN: Soft, nontender, nondistended, normoactive bowel sounds. No palpable organomegaly. right ileostomy with empty bag MUSCULOSKELETAL: No joint swelling or deformity. EXTREMITIES: No cyanosis, clubbing, or pedal edema. NEUROLOGICAL: Gross neurological examination did not reveal any focal deficits. SKIN: No rashes. no petechiae. - Labs CBC & Chem 7: 05/13/22 06:39 05/13/22 06:39 Labs: Abnormal Lab Results - Last 24 Hours (Table) 05/10/22 05/12/22 05/12/22 Range/Units 16:32 12:28 16:27 WBC 12.5 H (3.8-10.6) k/uL RBC 3.80 L (4.30-5.90) m/uL Hgb 10.7 L (13.0-17.5) gm/dL Hct 33.8 L (39.0-53.0) % Neutrophils # 11.4 H (1.3-7.7) k/uL Lymphocytes # 0.4 L (1.0-4.8) k/uL Sodium (137-145) mmol/L POC Glucose (mg/dL) 161 H (70-110) mg/dL Calcium (8.4-10.2) mg/dL Stool Calprotectin 60.6 H (<50) mcg/g 05/12/22 05/13/22 05/13/22 Range/Units 20:29 06:01 06:39 WBC (3.8-10.6) k/uL RBC 3.47 L (4.30-5.90) m/uL Hgb 9.9 L (13.0-17.5) gm/dL Hct 31.1 L (39.0-53.0) % Neutrophils # 8.3 H (1.3-7.7) k/uL Lymphocytes # 0.5 L (1.0-4.8) k/uL Sodium (137-145) mmol/L POC Glucose (mg/dL) 153 H 128 H (70-110) mg/dL Calcium (8.4-10.2) mg/dL Stool Calprotectin (<50) mcg/g 05/13/22 Range/Units 06:39 WBC (3.8-10.6) k/uL RBC (4.30-5.90) m/uL Hgb (13.0-17.5) gm/dL Hct (39.0-53.0) % Neutrophils # (1.3-7.7) k/uL Lymphocytes # (1.0-4.8) k/uL Sodium 134 L (137-145) mmol/L POC Glucose (mg/dL) (70-110) mg/dL Calcium 7.3 L (8.4-10.2) mg/dL Stool Calprotectin (<50) mcg/g Microbiology - Last 24 Hours (Table) 05/06/22 22:10 Blood Culture - Final Blood No Growth after 144 hours 05/06/22 21:50 Blood Culture - Final Blood No Growth after 144 hours 05/08/22 17:03 Blood Culture - Preliminary Blood No Growth after 96 hours 05/08/22 17:03 Blood Culture - Preliminary Blood No Growth after 96 hours Assessment and Plan Assessment: Acute healthcare associated pneumonia Sepsis with fever and leukocytosis. Continue with antibiotics Unasyn. ID team of the case Watery diarrhea with no abdominal pain suspicious for reactive gastroenteritis. C. diff is negative. Recent loss of weight with low appetite, workup for possible cancer was unremarkable so far with oncology on the case, but this can is pending Hypovolemic hyponatremia acute kidney injury on chronic kidney disease stage III, most likely prerenal. atrial fibrillation on Eliquis blood thinner at home Diabetes mellitus Hypertension Chronic anemia Plan: Continue with antibiotic Unasyn Follow-up culture results, including blood culture. 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 We will start with cautious Levemir 20 units at bedtime and 5 units with meals, with insulin sliding scale Labs and medication were reviewed.. Continue same treatment. Continue with symptomatic treatment. Resume home medication. Monitor labs and vitals. DVT and GI prophylaxis. Further recommendations as per clinical course of the patient DVT prophylaxis: Eliquis GI prophylaxis: Ppi PT/OT: Pending Prognosis is guarded
[2022-05-13 13:42] VITALS: BMI 20.6
[2022-05-13 16:39] LABS: Glucose,Whole Blood 113 mg/dL (70-110)
[2022-05-13 20:08] LABS: Glucose,Whole Blood 219 mg/dL (70-110)
[2022-05-13] MEDS: INSULIN DETEMIR (LEVEMIR) 100 UNIT/ML SYR SQ SCH (20:11)
[2022-05-13] MEDS: APIXABAN 5 MG TAB PO SCH (20:11)
[2022-05-13] MEDS: FERROUS SULFATE 325 MG TAB PO SCH (20:11)
[2022-05-13] MEDS: TAMSULOSIN 0.4 MG CAP.ER.24H PO SCH (20:12)
--- NOTE | 2022-05-13 23:12 | PN ---
PROGRESS NOTE SUBJECTIVE: This is a 71-year-old gentleman, who is admitted to hospital with significant weight loss and is currently being worked up for possible sepsis and occult malignancy, for which extensive workup had been negative. We were consulted because of tachycardia. This morning, he is feeling better. OBJECTIVE: VITAL SIGNS: Afebrile. Heart rate is 87 beats per minute. Blood pressure is 118/94, respiratory rate is 18. CHEST: Reveals good air entry bilaterally. HEART: Reveals first and second heart sounds. No gallop. Has a systolic murmur at the apex. ABDOMEN: Soft. EXTREMITIES: Did not reveal any edema. Peripheral pulses are palpable. LABORATORY DATA: Labs show a hemoglobin of 9.9, potassium is 3.5, creatinine is 0.8. His white cell count which was 17.5 on presentation had come down to 9.4. ASSESSMENT: 1. Atrial fibrillation with controlled ventricular rate. 2. Weight loss secondary to possible underlying infection. PLAN: I will continue current medications. The patient is actually doing very well since being started on the Augmentin. MMODL / IJN: [id number] /
[2022-05-14] MEDS: guaiFENesin-DM 100-10MG/5ML 10 ML CUP PO SCH ×3 (00:23→12:40)
[2022-05-14] MEDS: MELATONIN 5 MG TABLET PO PRN (00:24)
[2022-05-14 04:32] LABS: Glucose,Whole Blood 54 mg/dL (70-110)
[2022-05-14 04:49] LABS: Glucose,Whole Blood 69 mg/dL (70-110)
[2022-05-14 05:26] LABS: Glucose,Whole Blood 85 mg/dL (70-110)
[2022-05-14] MEDS: AMPICILLIN-SULBACTAM 3 GM in SODIUM CHLORIDE 0.9% 100 ML IVPB SCH ×4 (06:07→23:48)
[2022-05-14] MEDS: INSULIN ASPART (NovoLOG) 100 UNIT/ML VIAL SQ SCH ×4 (08:08→21:18)
[2022-05-14 08:21] VITALS: RESP 18
[2022-05-14] MEDS: PANTOPRAZOLE 40 MG/10 ML VIAL IVP SCH (08:22)
[2022-05-14] MEDS: DULoxetine HCL 30 MG CAPSULE.DR PO SCH (08:22)
[2022-05-14] MEDS: METOPROLOL TARTRATE 25 MG TAB PO SCH ×2 (08:22→20:22)
[2022-05-14] MEDS: LORATADINE 10 MG TAB PO SCH (08:22)
[2022-05-14] MEDS: APIXABAN 5 MG TAB PO SCH ×2 (08:22→20:22)
[2022-05-14] MEDS: FINASTERIDE 5 MG TAB PO SCH (08:22)
[2022-05-14 12:01] LABS: Glucose,Whole Blood 115 mg/dL (70-110)
[2022-05-14] MEDS: SODIUM CHLORIDE 0.9% 1,000 ML IV SCH (12:40)
[2022-05-14] MEDS: ACETAMINOPHEN TAB 325 MG TAB PO PRN (12:43)
--- NOTE | 2022-05-14 13:54 | P.PN ---
Subjective Progress Note Date: 05/14/22 Patient initially presented to the hospital with significant weight loss and currently being worked up for possible sepsis occult malignancy so far his extensive workup has been negative. We are consulted see the patient for tachycardia. Patient is doing well today. He denies chest pain palpitations or increased shortness of breath. He remains in atrial fibrillation with a controlled ventricular rate. He is on Eliquis for anticoagulation. Objective - Vital Signs Vital signs: Vital Signs Temp 98 F 05/14/22 12:00 Pulse 86 05/14/22 12:00 Resp 18 05/14/22 12:00 BP 146/68 05/14/22 12:00 Pulse Ox 95 05/14/22 12:00 FiO2 21 05/07/22 15:27 Intake & Output 05/13/22 05/14/22 05/14/22 18:59 06:59 18:59 Intake Total 480 240 Output Total 1625 1200 1300 Balance -1145 -1200 -1060 Weight 67.132 kg Intake: Oral 480 240 Output: Urine 400 600 350 Stool 1225 200 950 Urine/Stool Mix 400 Other: Voiding Method External Catheter External Catheter External Catheter # Voids 1 - Exam PHYSICAL EXAM: VITAL SIGNS: Reviewed. GENERAL: Well-developed in no acute distress. HEENT: Head is normocephalic. Pupils are equal, round. Sclerae anicteric. Mucous membranes of the mouth are moist. NECK: Supple. No JVD or thyromegaly RESPIRATORY: Respirations even and unlabored. Lungs diminished to auscultation bilaterally. CARDIO: irRegular rate and rhythm. S1 and S2 heard. No murmur or gallops. EXTREMITIES: Normal range of motion. No clubbing or cyanosis. Peripheral pulses intact. Negative for bilateral lower extremity edema NEURO: Orientated to person, time, mood is appropriate - Labs CBC & Chem 7: 05/13/22 06:39 05/13/22 06:39 Labs: Abnormal Lab Results - Last 24 Hours (Table) 05/13/22 05/13/22 05/13/22 Range/Units 06:39 16:37 20:07 POC Glucose (mg/dL) 113 H 219 H (70-110) mg/dL Procalcitonin 0.34 H (0.02-0.09) ng/mL 12/03/22 12/03/22 12/03/22 Range/Units 04:31 04:48 12:00 POC Glucose (mg/dL) 54 L 69 L 115 H (70-110) mg/dL Procalcitonin (0.02-0.09) ng/mL Microbiology - Last 24 Hours (Table) 05/10/22 16:32 Stool Culture - Preliminary Stool Raine albicans 05/08/22 17:03 Blood Culture - Preliminary Blood No Growth after 120 hours 05/08/22 17:03 Blood Culture - Preliminary Blood No Growth after 120 hours Assessment and Plan Assessment: Atrial fibrillation with a controlled ventricular rate Weight loss secondary to possible underlying infection Plan: Continue with all current cardiac medications Continue telemetry monitoring Further recommendations based on clinical course The above impression and plan of care have been discussed and directed by the signing physician. Nancy Azul, nurse practitioner, acting as scribe for signing physician.
--- NOTE | 2022-05-14 13:55 | P.PN ---
Subjective Progress Note Date: 05/14/22 This is a pleasant 71 years old male with past medical history of diabetes mellitus, hypertension, chronic anemia, atrial fibrillation on Eliquis blood thinner at home Patient states that she has been losing weight over several months with decreased appetite, he lost about 50 pounds and his PCP Dr. Lord is working him up, he has scheduled PET scan on May 13. Over the last 3 weeks this been feeling more weak with low appetite. Over the last few days he's been feeling feverish and his checked his temperature at home and he states it was between 101 and 103. He has some coughing and shortness of breath but no chest pain, no GI symptoms like diarrhea or vomiting. 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 He complains from urgency and sometimes dysuria. No neurological symptoms like headache or dizziness or weakness or numbness. He denies Smoking alcohol or illicit drug Vitals reviewed since admission he has no fever. Patient was hypotensive on admission 83/63 and currently blood pressure 105/69. He is tachycardic 118. He is saturating 94% on room air. showing leukocytosis 17.5, he has chronic leukocytosis since 02/08/2022 at 12.8, at times at 16.6 and then 12.6. Hemoglobin 12. Sodium 124. Acute kidney injury most likely prerenal creatinine 1.6, baseline 1.2 . Liver enzymes not elevated. Urine analysis is negative for infection. Viral test including howell, confluence and RSV viruses are undetected Chest x-ray: No active pulmonary process On admission her received ceftriaxone once daily, Toradol 1 and more than 2.5 L of normal saline. He was admitted with oncology and ID team consult. 05/08/2022 N awake and alert, lying in bed does not look in distress, still feels generally weak, still has low appetite but no other complaint. No dyspnea or cough and No chest pain or abdominal pain, no vomiting. Patient reports watery diarrhea of the right abdomen colostomy back and more frequent. he still have low-grade temperature 100.1 this morning Blood pressure is borderline and slightly tachycardic but creatinine improved down to 1.0. CT of the abdomen and pelvis showing no change in bilateral pleural effusion and atelectasis with no acute abnormality to explain patient's symptoms. Check for C. diff was negative. Patient currently on normal saline at 1 25 mL/h and Unasyn intravenously. No glucose is controlled on Levemir 20 units 05/09/2022 Patient still feels generally weak and still have some loose stool through his colostomy back about twice yesterday, mainly watery with no blood. Other than that he denies any other complaints, no chest pain or dyspnea, no abdominal pain or vomiting. History of tachycardic and febrile and onto 101 today. Labs improved, leukocytosis of 14.9. Blood culture is still pending. CT of the abdomen showing no acute abdominal findings to explain patient wishes symptoms. At least he kept, and with Unasyn and normal saline at 1 25 mL/h. Also he is on home dome of Eliquis for his A. fib. We will consult cardiology today for tachycardia and history of A. fib 05/10/2022 Patient awake alert, looks tired but answers questions appropriately. Mentation at baseline. Patient was significantly tachypneic this morning, repeat chest x-ray showing no acute infiltrate however there was suspicion of some more congestion and more left pleural effusion compared to admission therefore we will repeat his IV fluids 125 down to 75 mL/h and we will give one-time dose of Lasix. Patient is with no significant fever. Blood pressure 122/77, patient is still tachycardic and metoprolol 12.5 mg resumed yesterday. Cardiology already evaluated the patient. For tachycardia which is mostly secondary to sepsis and holding of beta oscar on admission He denies any other specific complaint. WBC is slightly worse 16,000, hemoglobin of 11.2. Sodium of 132. Creatinine improved down to 0.8. WBC scan is ordered for sepsis. Patient remains on Unasyn and home dose of Eliquis. 05/11/2012 Patient still feels generally weak and still felt sick and he still have diarrhea going frequently however he denies abdominal pain or nausea vomiting. He is tolerating diet better last night. However generally he has poor appetite and we will keep monitoring He was complaining from pain and both sides of the rib cage, patient reports history of fall few days prior to hospitalization, rib x-ray was negative. He still has a fever of 99.9 today. Slightly tachycardic and tachypneic. Blood pressure 98/67 Blood pressure was borderline this morning however is still on normal saline 75 mL/h as well as Unasyn. Continue treatment as of Eliquis for his A. fib and RVR. 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 05/12/2012 Patient today is less tachypneic, his breathing little easier, is less tachycardic, blood pressure slightly better 109/71, his fever subsided today. The hydrocele also trending down to 12.5 thousand. Hemoglobin and sodium are stable. Creatinine is normal. WBC scan showing possible pneumonia and cystitis however UA is negative and patient is asymptomatic. Most likely patient sepsis secondary to pneumonia. Patient remains on IV Unasyn. Also he is on home dose of Eliquis no lower the IV fluid rate to 50 mL/h at bedside and updated and QUESTIONS answered PET scan still pending 05/13/22 Patient most dyspneic and tachypneic today, his breathing is more quietly, denies any coughing, he says that his pain on the left side have resolved completely but on the right side still there. He is saturating 94% on 2 L oxygen via nasal cannula However chest x-ray today: showing similar small left pleural effusion with bibasilar atelectasis and/or consolidation, left greater than right. Radiation slightly worsening at the left mid lung now Patient still has diarrhea despite started him on the per minute Discussed the case with ID team Oncology team also on the case for loss of weight and others, they are following for PET scan and further workup. Sugar is better controlled /3. Patient seen and examined. States breathing is improving. Still complaining of cough REVIEW OF SYSTEMS: CONSTITUTIONAL: No fever, no malaise,. CARDIOVASCULAR: No chest pain, no palpitations, no syncope. PULMONARY: No shortness of breath, no cough, GASTROINTESTINAL: No diarrhea, no nausea, no vomiting, no abdominal pain. NEUROLOGICAL: No headaches, no weakness, PHYSICAL EXAMINATION: GENERAL: The patient is alert and oriented x3, not in any acute distress. Well developed, well nourished. HEENT: Pupils are round and equally reacting to light. EOMI. No scleral icterus. No conjunctival pallor. Normocephalic, atraumatic. No pharyngeal erythema. No thyromegaly. CARDIOVASCULAR: S1 and S2 present. No murmurs, rubs, or gallops. PULMONARY: Chest is clear to auscultation, no wheezing or crackles. ABDOMEN: Soft, nontender, nondistended, normoactive bowel sounds. No palpable organomegaly. MUSCULOSKELETAL: No joint swelling or deformity. EXTREMITIES: No cyanosis, clubbing, or pedal edema. NEUROLOGICAL: Gross neurological examination did not reveal any focal deficits. SKIN: No rashes. Assessment and plan Bacterial pneumonia Sepsis with fever and leukocytosis. Continue with antibiotics Unasyn. ID team of the case Watery diarrhea with no abdominal pain suspicious for reactive gastroenteritis. C. diff is negative. Recent loss of weight with low appetite, workup for possible cancer was unremarkable so far with oncology on the case, but this can is pending Hypovolemic hyponatremia acute kidney injury on chronic kidney disease stage III, most likely prerenal. atrial fibrillation on Eliquis blood thinner at home Diabetes mellitus Hypertension Chronic anemia Plan: Monitor vital signs Monitor CBC Continue with antibiotic Unasyn Follow-up culture results, including blood culture. Continue with IV hydration, his currently on normal saline with 50 mL/h Monitor blood sugar levels, continue current insulin regimen Follow-up in ID recs Follow-up on PT and OT recommendations Objective - Vital Signs Vital signs: Vital Signs Temp 98 F 05/14/22 12:00 Pulse 86 05/14/22 12:00 Resp 18 05/14/22 12:00 BP 146/68 05/14/22 12:00 Pulse Ox 95 05/14/22 12:00 FiO2 21 05/07/22 15:27 Intake & Output 05/13/22 05/14/22 05/14/22 18:59 06:59 18:59 Intake Total 480 240 Output Total 1625 1200 1300 Balance -1145 -1200 -1060 Weight 67.132 kg Intake: Oral 480 240 Output: Urine 400 600 350 Stool 1225 200 950 Urine/Stool Mix 400 Other: Voiding Method External Catheter External Catheter External Catheter # Voids 1 - Labs CBC & Chem 7: 05/13/22 06:39 05/13/22 06:39 Labs: Abnormal Lab Results - Last 24 Hours (Table) 05/13/22 05/13/22 05/13/22 Range/Units 06:39 16:37 20:07 POC Glucose (mg/dL) 113 H 219 H (70-110) mg/dL Procalcitonin 0.34 H (0.02-0.09) ng/mL 05/14/22 05/14/22 05/14/22 Range/Units 04:31 04:48 12:00 POC Glucose (mg/dL) 54 L 69 L 115 H (70-110) mg/dL Procalcitonin (0.02-0.09) ng/mL Microbiology - Last 24 Hours (Table) 05/10/22 16:32 Stool Culture - Preliminary Stool Raine albicans 05/08/22 17:03 Blood Culture - Preliminary Blood No Growth after 120 hours 05/08/22 17:03 Blood Culture - Preliminary Blood No Growth after 120 hours
[2022-05-14 16:51] LABS: Glucose,Whole Blood 132 mg/dL (70-110)
[2022-05-14 20:22] LABS: Glucose,Whole Blood 172 mg/dL (70-110)
[2022-05-14] MEDS: FERROUS SULFATE 325 MG TAB PO SCH (20:22)
[2022-05-14] MEDS: TAMSULOSIN 0.4 MG CAP.ER.24H PO SCH (20:22)
[2022-05-14] MEDS: INSULIN DETEMIR (LEVEMIR) 100 UNIT/ML SYR SQ SCH (20:22)
[2022-05-14] MEDS: traMADol 50 MG TAB PO PRN (22:04)
--- NOTE | 2022-05-14 23:50 | P.PN ---
Subjective Progress Note Date: 05/13/22 Principal diagnosis: Fever Patient is a 71-year-old male with a past medical history significant for diabetes mellitus hypertension patient did have a history of ulcerative colitis status post colectomy and did have ileostomy patient apparently recently being worked up by his oncologist for possible malignancy and the patient is scheduled for a PET scan as the patient did have about 50 pound weight loss.The patient has been brought into the hospital concerning for weakness and a fever apparently has been running a temperature of around 103 F over the last few day s On today's evaluation and that is 05/13/2022 the patient remains to be afebrile , the patient is breathing comfortably on room air, the patient denies having any chest pain occasional dry cough no nausea no vomiting no abdominal pain no diarrhea Objective - Vital Signs Vital signs: Vital Signs Temp 97.4 F L 05/13/22 12:00 Pulse 84 05/13/22 12:00 Resp 18 05/13/22 12:00 BP 104/68 05/13/22 12:00 Pulse Ox 94 L 05/13/22 12:00 FiO2 21 05/07/22 15:27 Intake & Output 05/12/22 05/13/22 05/13/22 18:59 06:59 18:59 Intake Total 540 240 Output Total 1775 400 600 Balance -1235 -400 -360 Intake: Oral 540 240 Output: Urine 500 400 Stool 1000 600 Urine/Stool Mix 275 Other: Voiding Method External Catheter External Catheter External Catheter # Voids 1 - Exam GENERAL DESCRIPTION: An elderly male lying in bed in no distress RESPIRATORY SYSTEM: Unlabored breathing , decreased breath sounds at bases HEART: S1 S2 regular rate and rhythm , ABDOMEN: Soft , no tenderness EXTREMITIES: No edema feet - Labs CBC & Chem 7: 05/13/22 06:39 05/13/22 06:39 Labs: Abnormal Lab Results - Last 24 Hours (Table) 05/10/22 05/12/22 05/12/22 Range/Units 16:32 12:28 16:27 WBC 12.5 H (3.8-10.6) k/uL RBC 3.80 L (4.30-5.90) m/uL Hgb 10.7 L (13.0-17.5) gm/dL Hct 33.8 L (39.0-53.0) % Neutrophils # 11.4 H (1.3-7.7) k/uL Lymphocytes # 0.4 L (1.0-4.8) k/uL Sodium (137-145) mmol/L POC Glucose (mg/dL) 161 H (70-110) mg/dL Calcium (8.4-10.2) mg/dL Stool Calprotectin 60.6 H (<50) mcg/g 05/12/22 05/13/22 05/13/22 Range/Units 20:29 06:01 06:39 WBC (3.8-10.6) k/uL RBC 3.47 L (4.30-5.90) m/uL Hgb 9.9 L (13.0-17.5) gm/dL Hct 31.1 L (39.0-53.0) % Neutrophils # 8.3 H (1.3-7.7) k/uL Lymphocytes # 0.5 L (1.0-4.8) k/uL Sodium (137-145) mmol/L POC Glucose (mg/dL) 153 H 128 H (70-110) mg/dL Calcium (8.4-10.2) mg/dL Stool Calprotectin (<50) mcg/g 05/13/22 Range/Units 06:39 WBC (3.8-10.6) k/uL RBC (4.30-5.90) m/uL Hgb (13.0-17.5) gm/dL Hct (39.0-53.0) % Neutrophils # (1.3-7.7) k/uL Lymphocytes # (1.0-4.8) k/uL Sodium 134 L (137-145) mmol/L POC Glucose (mg/dL) (70-110) mg/dL Calcium 7.3 L (8.4-10.2) mg/dL Stool Calprotectin (<50) mcg/g Microbiology - Last 24 Hours (Table) 05/06/22 22:10 Blood Culture - Final Blood No Growth after 144 hours 05/06/22 21:50 Blood Culture - Final Blood No Growth after 144 hours 05/08/22 17:03 Blood Culture - Preliminary Blood No Growth after 96 hours 05/08/22 17:03 Blood Culture - Preliminary Blood No Growth after 96 hours Assessment and Plan (1) Fever Current Visit: Yes Status: Acute Code(s): R50.9 - FEVER, UNSPECIFIED SNOMED Code(s): 486153160 Plan: 1patient presented to hospital with a fever in this patient with no significant localizing signs or symptoms and initial work-up has been negative , patient did have a CT of abdominal pelvis as well as CT angiogram of the chest that was negative for any DVT or acute source of infection both CTs were reviewed with the radiologist, there is L 1 level kyphoplasty but no edema and the WBC scan did not point towards any a single focus of infection. 2the patient did have resolution of his fever and the white count has normalized to continue with Unasyn while inpatient finishing therapy with oral Augmentin, discussed with the admitting physician Time with Patient: Less than 30
--- NOTE | 2022-05-14 23:51 | P.PN ---
Subjective Progress Note Date: 05/14/22 Principal diagnosis: Fever Patient is a 71-year-old male with a past medical history significant for diabetes mellitus hypertension patient did have a history of ulcerative colitis status post colectomy and did have ileostomy patient apparently recently being worked up by his oncologist for possible malignancy and the patient is scheduled for a PET scan as the patient did have about 50 pound weight loss.The patient has been brought into the hospital concerning for weakness and a fever apparently has been running a temperature of around 103 F over the last few day s On today's evaluation and that is 05/14/2022 the patient continues to be afebrile , the patient is breathing comfortably on room air, the patient denies chest pain no shortness with occasional cough no nausea no vomiting no abdominal pain no diarrhea Objective - Vital Signs Vital signs: Vital Signs Temp 98 F 05/14/22 12:00 Pulse 86 05/14/22 12:00 Resp 18 05/14/22 12:00 BP 146/68 05/14/22 12:00 Pulse Ox 95 05/14/22 12:00 FiO2 21 05/07/22 15:27 Intake & Output 05/13/22 05/14/22 05/14/22 18:59 06:59 18:59 Intake Total 480 240 Output Total 1625 1200 1300 Balance -1145 -1200 -1060 Weight 67.132 kg Intake: Oral 480 240 Output: Urine 400 600 350 Stool 1225 200 950 Urine/Stool Mix 400 Other: Voiding Method External Catheter External Catheter External Catheter # Voids 1 - Exam GENERAL DESCRIPTION: An elderly male lying in bed in no distress RESPIRATORY SYSTEM: Unlabored breathing , decreased breath sounds at bases HEART: S1 S2 regular rate and rhythm , ABDOMEN: Soft , no tenderness EXTREMITIES: No edema feet - Labs CBC & Chem 7: 05/13/22 06:39 05/13/22 06:39 Labs: Abnormal Lab Results - Last 24 Hours (Table) 05/13/22 05/13/22 05/13/22 Range/Units 06:39 16:37 20:07 POC Glucose (mg/dL) 113 H 219 H (70-110) mg/dL Procalcitonin 0.34 H (0.02-0.09) ng/mL 05/14/22 05/14/22 05/14/22 Range/Units 04:31 04:48 12:00 POC Glucose (mg/dL) 54 L 69 L 115 H (70-110) mg/dL Procalcitonin (0.02-0.09) ng/mL Microbiology - Last 24 Hours (Table) 05/10/22 16:32 Stool Culture - Preliminary Stool Raine albicans 05/08/22 17:03 Blood Culture - Preliminary Blood No Growth after 120 hours 05/08/22 17:03 Blood Culture - Preliminary Blood No Growth after 120 hours Assessment and Plan (1) Fever Current Visit: Yes Status: Acute Code(s): R50.9 - FEVER, UNSPECIFIED SNOMED Code(s): 816799151 Plan: 1patient presented to hospital with a fever in this patient with no significant localizing signs or symptoms and initial work-up has been negative , patient did have a CT of abdominal pelvis as well as CT angiogram of the chest that was negative for any DVT or acute source of infection both CTs were reviewed with the radiologist, there is L 1 level kyphoplasty but no edema and the WBC scan did not point towards any a single focus of infection. 2the patient did have resolution of his fever and the white count has normalized, the patient cultures have been negative we will continue the patient on Unasyn while inpatient and transition to oral Augmentin on discharge Time with Patient: Less than 30
[2022-05-15] MEDS: AMPICILLIN-SULBACTAM 3 GM in SODIUM CHLORIDE 0.9% 100 ML IVPB SCH ×4 (05:36→23:53)
[2022-05-15 06:06] LABS: Glucose,Whole Blood 56 mg/dL (70-110)
[2022-05-15] MEDS: INSULIN ASPART (NovoLOG) 100 UNIT/ML VIAL SQ SCH ×4 (06:10→20:42)
[2022-05-15 06:29] LABS: Glucose,Whole Blood 75 mg/dL (70-110)
[2022-05-15] MEDS: LORATADINE 10 MG TAB PO SCH (08:59)
[2022-05-15] MEDS: DULoxetine HCL 30 MG CAPSULE.DR PO SCH (08:59)
[2022-05-15] MEDS: APIXABAN 5 MG TAB PO SCH ×2 (08:59→20:41)
[2022-05-15] MEDS: FINASTERIDE 5 MG TAB PO SCH (08:59)
[2022-05-15] MEDS: METOPROLOL TARTRATE 25 MG TAB PO SCH ×2 (08:59→20:41)
[2022-05-15] MEDS: PANTOPRAZOLE 40 MG/10 ML VIAL IVP SCH (09:00)
[2022-05-15] MEDS: SODIUM CHLORIDE 0.9% 1,000 ML IV SCH ×2 (09:02→23:54)
[2022-05-15 11:49] LABS: Glucose,Whole Blood 120 mg/dL (70-110)
--- NOTE | 2022-05-15 13:25 | P.PN ---
Subjective Progress Note Date: 05/15/22 This is a pleasant 71 years old male with past medical history of diabetes mellitus, hypertension, chronic anemia, atrial fibrillation on Eliquis blood thinner at home Patient states that she has been losing weight over several months with decreased appetite, he lost about 50 pounds and his PCP Dr. Lord is working him up, he has scheduled PET scan on May 13. Over the last 3 weeks this been feeling more weak with low appetite. Over the last few days he's been feeling feverish and his checked his temperature at home and he states it was between 101 and 103. He has some coughing and shortness of breath but no chest pain, no GI symptoms like diarrhea or vomiting. 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 He complains from urgency and sometimes dysuria. No neurological symptoms like headache or dizziness or weakness or numbness. He denies Smoking alcohol or illicit drug Vitals reviewed since admission he has no fever. Patient was hypotensive on admission 83/63 and currently blood pressure 105/69. He is tachycardic 118. He is saturating 94% on room air. showing leukocytosis 17.5, he has chronic leukocytosis since 02/08/2022 at 12.8, at times at 16.6 and then 12.6. Hemoglobin 12. Sodium 124. Acute kidney injury most likely prerenal creatinine 1.6, baseline 1.2 . Liver enzymes not elevated. Urine analysis is negative for infection. Viral test including howell, confluence and RSV viruses are undetected Chest x-ray: No active pulmonary process On admission her received ceftriaxone once daily, Toradol 1 and more than 2.5 L of normal saline. He was admitted with oncology and ID team consult. 05/08/2022 N awake and alert, lying in bed does not look in distress, still feels generally weak, still has low appetite but no other complaint. No dyspnea or cough and No chest pain or abdominal pain, no vomiting. Patient reports watery diarrhea of the right abdomen colostomy back and more frequent. he still have low-grade temperature 100.1 this morning Blood pressure is borderline and slightly tachycardic but creatinine improved down to 1.0. CT of the abdomen and pelvis showing no change in bilateral pleural effusion and atelectasis with no acute abnormality to explain patient's symptoms. Check for C. diff was negative. Patient currently on normal saline at 1 25 mL/h and Unasyn intravenously. No glucose is controlled on Levemir 20 units 05/09/2022 Patient still feels generally weak and still have some loose stool through his colostomy back about twice yesterday, mainly watery with no blood. Other than that he denies any other complaints, no chest pain or dyspnea, no abdominal pain or vomiting. History of tachycardic and febrile and onto 101 today. Labs improved, leukocytosis of 14.9. Blood culture is still pending. CT of the abdomen showing no acute abdominal findings to explain patient wishes symptoms. At least he kept, and with Unasyn and normal saline at 1 25 mL/h. Also he is on home dome of Eliquis for his A. fib. We will consult cardiology today for tachycardia and history of A. fib 05/10/2022 Patient awake alert, looks tired but answers questions appropriately. Mentation at baseline. Patient was significantly tachypneic this morning, repeat chest x-ray showing no acute infiltrate however there was suspicion of some more congestion and more left pleural effusion compared to admission therefore we will repeat his IV fluids 125 down to 75 mL/h and we will give one-time dose of Lasix. Patient is with no significant fever. Blood pressure 122/77, patient is still tachycardic and metoprolol 12.5 mg resumed yesterday. Cardiology already evaluated the patient. For tachycardia which is mostly secondary to sepsis and holding of beta oscar on admission He denies any other specific complaint. WBC is slightly worse 16,000, hemoglobin of 11.2. Sodium of 132. Creatinine improved down to 0.8. WBC scan is ordered for sepsis. Patient remains on Unasyn and home dose of Eliquis. 05/11/2012 Patient still feels generally weak and still felt sick and he still have diarrhea going frequently however he denies abdominal pain or nausea vomiting. He is tolerating diet better last night. However generally he has poor appetite and we will keep monitoring He was complaining from pain and both sides of the rib cage, patient reports history of fall few days prior to hospitalization, rib x-ray was negative. He still has a fever of 99.9 today. Slightly tachycardic and tachypneic. Blood pressure 98/67 Blood pressure was borderline this morning however is still on normal saline 75 mL/h as well as Unasyn. Continue treatment as of Eliquis for his A. fib and RVR. Patient is tachycardia better today after increasing metoprolol to 25 mg twice a day per signal person, however that may contributing to more slight drop in blood pressure. 05/12/2012 Patient today is less tachypneic, his breathing little easier, is less tachycardic, blood pressure slightly better 109/71, his fever subsided today. The hydrocele also trending down to 12.5 thousand. Hemoglobin and sodium are stable. Creatinine is normal. WBC scan showing possible pneumonia and cystitis however UA is negative and patient is asymptomatic. Most likely patient sepsis secondary to pneumonia. Patient remains on IV Unasyn. Also he is on home dose of Eliquis no lower the IV fluid rate to 50 mL/h at bedside and updated and QUESTIONS answered PET scan still pending 05/13/22 Patient most dyspneic and tachypneic today, his breathing is more quietly, denies any coughing, he says that his pain on the left side have resolved completely but on the right side still there. He is saturating 94% on 2 L oxygen via nasal cannula However chest x-ray today: showing similar small left pleural effusion with bibasilar atelectasis and/or consolidation, left greater than right. Radiation slightly worsening at the left mid lung now Patient still has diarrhea despite started him on the per minute Discussed the case with ID team Oncology team also on the case for loss of weight and others, they are following for PET scan and further workup. Sugar is better controlled 05/14. Patient seen and examined. States breathing is improving. Still complaining of cough 05/15. Patient seen and examined. Labs reviewed. Patient is very weak, agreeable to go to rehab. REVIEW OF SYSTEMS: CONSTITUTIONAL: No fever, no malaise,. CARDIOVASCULAR: No chest pain, no palpitations, no syncope. PULMONARY: No shortness of breath, no cough, GASTROINTESTINAL: No diarrhea, no abdominal pain. NEUROLOGICAL: No headaches, no weakness, PHYSICAL EXAMINATION: GENERAL: The patient is alert and oriented x3, not in any acute distress. Well developed, well nourished. HEENT: Pupils are round and equally reacting to light. EOMI. No scleral icterus. No conjunctival pallor. Normocephalic, atraumatic. No pharyngeal erythema. No thyromegaly. CARDIOVASCULAR: S1 and S2 present. No murmurs, rubs, or gallops. PULMONARY: Chest is clear to auscultation, no wheezing or crackles. ABDOMEN: Soft, nontender, nondistended, normoactive bowel sounds. No palpable organomegaly. MUSCULOSKELETAL: No joint swelling or deformity. EXTREMITIES: No cyanosis, clubbing, or pedal edema. NEUROLOGICAL: Gross neurological examination did not reveal any focal deficits. SKIN: No rashes. Assessment and plan Bacterial pneumonia Sepsis with fever and leukocytosis. Continue with antibiotics Unasyn. ID team of the case Watery diarrhea with no abdominal pain suspicious for reactive gastroenteritis. C. diff is negative. Recent loss of weight with low appetite, workup for possible cancer was unremarkable so far with oncology on the case, but this can is pending Hypovolemic hyponatremia acute kidney injury on chronic kidney disease stage III, most likely prerenal. atrial fibrillation on Eliquis blood thinner at home Diabetes mellitus Hypertension Chronic anemia Plan: Monitor vital signs Monitor CBC Continue with antibiotic Unasyn, can be changed to Augmentin at discharge for 2 weeks Follow-up culture results, including blood culture. Continue with IV hydration, his currently on normal saline with 50 mL/h Monitor blood sugar levels, continue current insulin regimen Follow-up in ID recs Follow-up on PT and OT recommendations Objective - Vital Signs Vital signs: Vital Signs Temp 97.8 F 05/15/22 08:00 Pulse 95 05/15/22 08:00 Resp 18 05/15/22 08:00 BP 133/82 05/15/22 08:00 Pulse Ox 94 L 05/15/22 08:00 FiO2 21 05/07/22 15:27 Intake & Output 05/14/22 05/15/22 05/15/22 18:59 06:59 18:59 Intake Total 358 480 Output Total 2550 1450 1025 Balance -2192 -1450 -545 Intake: Oral 358 480 Output: Urine 600 750 400 Stool 1950 700 625 Other: Voiding Method External Catheter External Catheter External Catheter - Labs CBC & Chem 7: 05/13/22 06:39 05/13/22 06:39 Labs: Abnormal Lab Results - Last 24 Hours (Table) 05/14/22 05/14/22 05/15/22 Range/Units 16:50 20:20 06:05 POC Glucose (mg/dL) 132 H 172 H 56 L (70-110) mg/dL 05/15/22 Range/Units 11:48 POC Glucose (mg/dL) 120 H (70-110) mg/dL Microbiology - Last 24 Hours (Table) 05/08/22 17:03 Blood Culture - Final Blood No Growth after 144 hours 05/08/22 17:03 Blood Culture - Final Blood No Growth after 144 hours
[2022-05-15 16:43] LABS: Glucose,Whole Blood 97 mg/dL (70-110)
[2022-05-15 20:10] LABS: Glucose,Whole Blood 168 mg/dL (70-110)
[2022-05-15] MEDS: TAMSULOSIN 0.4 MG CAP.ER.24H PO SCH (20:41)
[2022-05-15] MEDS: FERROUS SULFATE 325 MG TAB PO SCH (20:41)
[2022-05-15] MEDS ORDERED: INSULIN DETEMIR (LEVEMIR) 100 UNIT/ML SYR SQ SCH ×2 (21:00)
[2022-05-15] MEDS: MELATONIN 5 MG TABLET PO PRN (21:27)
[2022-05-15] MEDS: traMADol 50 MG TAB PO PRN (21:27)
--- NOTE | 2022-05-15 23:09 | P.PN ---
Subjective Progress Note Date: 05/15/22 Principal diagnosis: Fever Patient is a 71-year-old male with a past medical history significant for diabetes mellitus hypertension patient did have a history of ulcerative colitis status post colectomy and did have ileostomy patient apparently recently being worked up by his oncologist for possible malignancy and the patient is scheduled for a PET scan as the patient did have about 50 pound weight loss.The patient has been brought into the hospital concerning for weakness and a fever apparently has been running a temperature of around 103 F over the last few day s On today's evaluation and that is 05/15/2022 the patient remains to be afebrile , the patient is breathing comfortably on room air, the patient has mild right- sided chest pain however improving no shortness breath, the patient did have occasional cough no nausea no vomiting no abdominal pain no diarrhea Objective - Vital Signs Vital signs: Vital Signs Temp 97.8 F 05/15/22 08:00 Pulse 95 05/15/22 08:00 Resp 18 05/15/22 08:00 BP 133/82 05/15/22 08:00 Pulse Ox 94 L 05/15/22 08:00 FiO2 21 05/07/22 15:27 Intake & Output 05/14/22 05/15/22 05/15/22 18:59 06:59 18:59 Intake Total 358 480 Output Total 2550 1450 1025 Balance -2192 -1450 -545 Intake: Oral 358 480 Output: Urine 600 750 400 Stool 1950 700 625 Other: Voiding Method External Catheter External Catheter External Catheter - Exam GENERAL DESCRIPTION: An elderly male lying in bed in no distress RESPIRATORY SYSTEM: Unlabored breathing , decreased breath sounds at bases HEART: S1 S2 regular rate and rhythm , ABDOMEN: Soft , no tenderness EXTREMITIES: No edema feet - Labs CBC & Chem 7: 05/13/22 06:39 05/13/22 06:39 Labs: Abnormal Lab Results - Last 24 Hours (Table) 05/14/22 05/14/22 05/15/22 Range/Units 16:50 20:20 06:05 POC Glucose (mg/dL) 132 H 172 H 56 L (70-110) mg/dL 05/15/22 Range/Units 11:48 POC Glucose (mg/dL) 120 H (70-110) mg/dL Microbiology - Last 24 Hours (Table) 05/08/22 17:03 Blood Culture - Final Blood No Growth after 144 hours 05/08/22 17:03 Blood Culture - Final Blood No Growth after 144 hours Assessment and Plan (1) Fever Current Visit: Yes Status: Acute Code(s): R50.9 - FEVER, UNSPECIFIED SNOMED Code(s): 302678799 Plan: 1patient presented to hospital with a fever in this patient with no significant localizing signs or symptoms and initial work-up has been negative , patient did have a CT of abdominal pelvis as well as CT angiogram of the chest that was negative for any DVT or acute source of infection both CTs were reviewed with the radiologist, there is L 1 level kyphoplasty but no edema and the WBC scan did not point towards any a single focus of infection. 2the patient did have resolution of his fever and the white count has normalized, the patient cultures have been negative 3-patient has shown overall improvement on IV Unasyn which should be continued while inpatient and finish therapy with oral Augmentin on discharge Time with Patient: Less than 30
[2022-05-16 02:55] LABS: Glucose,Whole Blood 57 mg/dL (70-110)
[2022-05-16 03:10] LABS: Glucose,Whole Blood 69 mg/dL (70-110)
[2022-05-16 03:27] LABS: Glucose,Whole Blood 88 mg/dL (70-110)
[2022-05-16] MEDS: INSULIN ASPART (NovoLOG) 100 UNIT/ML VIAL SQ SCH ×4 (04:52→21:04)
[2022-05-16] MEDS: AMPICILLIN-SULBACTAM 3 GM in SODIUM CHLORIDE 0.9% 100 ML IVPB SCH ×4 (05:24→23:48)
[2022-05-16 05:59] LABS: Glucose,Whole Blood 127 mg/dL (70-110)
[2022-05-16] MEDS: APIXABAN 5 MG TAB PO SCH ×2 (08:24→21:03)
[2022-05-16] MEDS: FINASTERIDE 5 MG TAB PO SCH (08:24)
[2022-05-16] MEDS: LORATADINE 10 MG TAB PO SCH (08:24)
[2022-05-16] MEDS: PANTOPRAZOLE 40 MG/10 ML VIAL IVP SCH (08:25)
[2022-05-16] MEDS: DULoxetine HCL 30 MG CAPSULE.DR PO SCH (08:25)
[2022-05-16] MEDS: METOPROLOL TARTRATE 25 MG TAB PO SCH ×2 (08:25→21:03)
[2022-05-16 11:47] LABS: Glucose,Whole Blood 114 mg/dL (70-110)
[2022-05-16 11:52] LABS: ALT 22 U/L (4-49); AST 38 U/L (17-59); African American GFR (CKD) >90 (>60 ml/min/1.73 sqM); Albumin 2.5 g/dL (3.5-5.0); Alkaline Phosphatase 169 U/L (38-126); Anion Gap 4 mmol/L; Blood Urea Nitrogen 12 mg/dL (9-20); Calcium 7.9 mg/dL (8.4-10.2); Carbon Dioxide 26 mmol/L (22-30); Chloride 105 mmol/L (98-107); Glucose 117 mg/dL (74-99); Non-African American GFR(CKD) 88 (>60 ml/min/1.73 sqM); Sodium 135 mmol/L (137-145); Total Bilirubin 0.3 mg/dL (0.2-1.3); Total Protein 5.4 g/dL (6.3-8.2)
[2022-05-16 11:55] LABS: HCT 33.8 % (39.0-53.0); HGB 10.6 gm/dL (13.0-17.5); Hypochromasia Moderate; MCH 28.4 pg (25.0-35.0); MCHC 31.2 g/dL (31.0-37.0); MCV 90.8 fL (80.0-100.0); Mean Platelet Volume 8.9; Platelet Count 346 k/uL (150-450); RBC 3.72 m/uL (4.30-5.90); WBC 11.3 k/uL (3.8-10.6)
[2022-05-16 16:50] LABS: Glucose,Whole Blood 129 mg/dL (70-110)
--- NOTE | 2022-05-16 19:00 | P.PN ---
Subjective This is a pleasant 71 years old male with past medical history of diabetes mellitus, hypertension, chronic anemia, atrial fibrillation on Eliquis blood thinner at home Patient states that she has been losing weight over several months with decrease d appetite, he lost about 50 pounds and his PCP Dr. Lord is working him up, he has scheduled PET scan on May 13. Over the last 3 weeks this been feeling more weak with low appetite. Over the last few days he's been feeling feverish and his checked his temperature at home and he states it was between 101 and 103. He has some coughing and shortness of breath but no chest pain, no GI symptoms like diarrhea or vomiting. 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 He complains from urgency and sometimes dysuria. No n eurological symptoms like headache or dizziness or weakness or numbness. He denies Smoking alcohol or illicit drug Vitals reviewed since admission he has no fever. Patient was hypotensive on admission 83/63 and currently blood pressure 105/69. He is tachycardic 118. He is saturating 94% on room air. showing leukocytosis 17.5, he has chronic leukocytosis since 02/08/2022 at 12.8, at times at 16.6 and then 12.6. Hemoglobin 12. Sodium 124. Acute kidney injury most likely prerenal creatinine 1.6, baseline 1.2 . Liver enzymes not elevated. Urine analysis is negative for infection. Viral test including hwoell, confluence and RSV viruses are undetected Chest x-ray: No active pulmonary process On admission her received ceftriaxone once daily, Toradol 1 and more than 2.5 L of normal saline. He was admitted with oncology and ID team consult. 05/08/2022 N awake and alert, lying in bed does not look in distress, still feels generally weak, still has low appetite but no other complaint. No dyspnea or cough and No chest pain or abdominal pain, no vomiting. Patient reports watery diarrhea of the right abdomen colostomy back and more frequent. he still have low-grade temperature 100.1 this morning Blood pressure is borderline and slightly tachycardic but creatinine improved down to 1.0. CT of the abdomen and pelvis showing no change in bilateral pleural effusion and atelectasis with no acute abnormality to explain patient's symptoms. Check for C. diff was negative. Patient currently on normal saline at 1 25 mL/h and Unasyn intravenously. No glucose is controlled on Levemir 20 units 05/09/2022 Patient still feels generally weak and still have some loose stool through his colostomy back about twice yesterday, mainly watery with no blood. Other than that he denies any other complaints, no chest pain or dyspnea, no abdominal pain or vomiting. History of tachycardic and febrile and onto 101 today. Labs improved, leukocytosis of 14.9. Blood culture is still pending. CT of the abdomen showing no acute abdominal findings to explain patient wishes symptoms. At least he kept, and with Unasyn and normal saline at 1 25 mL/h. Also he is on home dome of Eliquis for his A. fib. We will consult cardiology today for tachycardia and history of A. fib 05/10/2022 Patient awake alert, looks tired but answers questions appropriately. Mentation at baseline. Patient was significantly tachypneic this morning, repeat chest x-ray showing no acute infiltrate however there was suspicion of some more congestion and more left pleural effusion compared to admission therefore we will repeat his IV fluids 125 down to 75 mL/h and we will give one-time dose of Lasix. Patient is with no significant fever. Blood pressure 122/77, patient is still tachycardic and metoprolol 12.5 mg resumed yesterday. Cardiology already evaluated the patient. For tachycardia which is mostly secondary to sepsis and holding of beta oscar on admission He denies any other specific complaint. WBC is slightly worse 16,000, hemoglobin of 11.2. Sodium of 132. Creatinine improved down to 0.8. WBC scan is ordered for sepsis. Patient remains on Unasyn and home dose of Eliquis. 05/11/2012 Patient still feels generally weak and still felt sick and he still have diarrhea going frequently however he denies abdominal pain or nausea vomiting. He is tolerating diet better last night. However generally he has poor appetite and we will keep monitoring He was complaining from pain and both sides of the rib cage, patient reports history of fall few days prior to hospitalization, rib x-ray was negative. He still has a fever of 99.9 today. Slightly tachycardic and tachypneic. Blood pressure 98/67 Blood pressure was borderline this morning however is still on normal saline 75 mL/h as well as Unasyn. Continue treatment as of Eliquis for his A. fib and RVR. Patient is tachycardia better today after increasing metoprolol to 25 mg twice a day per flame gouger, however that may contributing to more slight drop in blood pressure. 05/12/2012 Patient today is less tachypneic, his breathing little easier, is less tachycardic, blood pressure slightly better 109/71, his fever subsided today. The hydrocele also trending down to 12.5 thousand. Hemoglobin and sodium are stable. Creatinine is normal. WBC scan showing possible pneumonia and cystitis however UA is negative and patient is asymptomatic. Most likely patient sepsis secondary to pneumonia. Patient remains on IV Unasyn. Also he is on home dose of Eliquis no lower the IV fluid rate to 50 mL/h at bedside and updated and QUESTIONS answered PET scan still pending 05/13/22 Patient most dyspneic and tachypneic today, his breathing is more quietly, denies any coughing, he says that his pain on the left side have resolved completely but on the right side still there. He is saturating 94% on 2 L oxygen via nasal cannula However chest x-ray today: showing similar small left pleural effusion with bibasilar atelectasis and/or consolidation, left greater than right. Radiation slightly worsening at the left mid lung now Patient still has diarrhea despite started him on the per minute Discussed the case with ID team Oncology team also on the case for loss of weight and others, they are following for PET scan and further workup. Sugar is better controlled Resume the care of the patient 05/16/2022 Patient respiratory symptoms significantly improved while on Unasyn, most likely he has pneumonia which responded to treatment and currently he denies any dyspnea chest pain and only have occasional coughing. He is saturating well on room air. His WBCs 11.3, hemoglobin 10.6. Patient remains on Unasyn. Patient could be considered for discharge for rehab was cleared by ID team and oncology Discussed with the staff Lower Levemir 16 units with meals, his sugar better after we are to 17 units yesterday. Construction Plant Operator recommended Eliquis and they signed off the case currently Possible discharge 24-48 hours was cleared by ID team and oncologist. Informed the patient to follow-up with oncologist as an outpatient for PET scan and further workup Patient will most likely discharged on Augmentin per ID team Objective - Vital Signs Vital signs: Vital Signs Temp 98.5 F 05/16/22 12:00 Pulse 72 05/16/22 14:00 Resp 18 05/16/22 14:00 BP 132/76 05/16/22 12:00 Pulse Ox 97 05/16/22 12:00 FiO2 21 05/07/22 15:27 Intake & Output 05/15/22 05/16/22 05/16/22 18:59 06:59 18:59 Intake Total 720 10 120 Output Total 2084 727 4137 Balance -1255 -840 -1180 Weight 67.132 kg Intake: IV 10 Invasive Line 3 10 Oral 720 120 Output: Urine 800 400 600 Stool 1175 450 700 Other: Voiding Method External Catheter External Catheter External Catheter - Exam -GENERAL: The patient is alert and oriented x3, not in any acute distress. Thin built HEENT: Pupils are round and equally reacting to light. EOMI. No scleral icterus. No conjunctival pallor. Normocephalic, atraumatic. No pharyngeal erythema. No thyromegaly. CARDIOVASCULAR: S1 and S2 present. No murmurs, rubs, or gallops. PULMONARY: Chest is clear to auscultation, no wheezing or crackles. -ABDOMEN: Soft, nontender, nondistended, normoactive bowel sounds. No palpable organomegaly. right ileostomy with empty bag MUSCULOSKELETAL: No joint swelling or deformity. EXTREMITIES: No cyanosis, clubbing, or pedal edema. NEUROLOGICAL: Gross neurological examination did not reveal any focal deficits. SKIN: No rashes. no petechiae. - Labs CBC & Chem 7: 05/16/22 10:58 05/16/22 10:58 Labs: Abnormal Lab Results - Last 24 Hours (Table) 05/15/22 05/16/22 05/16/22 Range/Units 20:08 02:53 03:08 WBC (3.8-10.6) k/uL RBC (4.30-5.90) m/uL Hgb (13.0-17.5) gm/dL Hct (39.0-53.0) % Sodium (137-145) mmol/L Glucose (74-99) mg/dL POC Glucose (mg/dL) 168 H 57 L 69 L (70-110) mg/dL Calcium (8.4-10.2) mg/dL Alkaline Phosphatase (38-126) U/L Total Protein (6.3-8.2) g/dL Albumin (3.5-5.0) g/dL 05/16/22 05/16/22 05/16/22 Range/Units 05:58 10:58 10:58 WBC 11.3 H (3.8-10.6) k/uL RBC 3.72 L (4.30-5.90) m/uL Hgb 10.6 L (13.0-17.5) gm/dL Hct 33.8 L (39.0-53.0) % Sodium 135 L (137-145) mmol/L Glucose 117 H (74-99) mg/dL POC Glucose (mg/dL) 127 H (70-110) mg/dL Calcium 7.9 L (8.4-10.2) mg/dL Alkaline Phosphatase 169 H (38-126) U/L Total Protein 5.4 L (6.3-8.2) g/dL Albumin 2.5 L (3.5-5.0) g/dL 05/16/22 Range/Units 11:46 WBC (3.8-10.6) k/uL RBC (4.30-5.90) m/uL Hgb (13.0-17.5) gm/dL Hct (39.0-53.0) % Sodium (137-145) mmol/L Glucose (74-99) mg/dL POC Glucose (mg/dL) 114 H (70-110) mg/dL Calcium (8.4-10.2) mg/dL Alkaline Phosphatase (38-126) U/L Total Protein (6.3-8.2) g/dL Albumin (3.5-5.0) g/dL Assessment and Plan Assessment: Acute healthcare associated pneumonia Sepsis with fever and leukocytosis. Continue with antibiotics Unasyn. ID team of the case Watery diarrhea with no abdominal pain suspicious for reactive gastroenteritis. C. diff is negative. Recent loss of weight with low appetite, workup for possible cancer was unremarkable so far with oncology on the case, but this can is pending Hypovolemic hyponatremia acute kidney injury on chronic kidney disease stage III, most likely prerenal. atrial fibrillation on Eliquis blood thinner at home Diabetes mellitus Hypertension Chronic anemia Plan: Continue with antibiotic Unasyn Follow-up culture results, including blood culture. Continue with IV hydration, his currently on normal saline with 50 mL/h until patient was on Consult follow up with ID and oncology team Consult flame gouger team Continue with metoprolol 25 mg twice daily Lantus 35 units at bedtime and insulin lispro 10 units with meals. We will start with cautious Levemir 20 units at bedtime and 5 units with meals, with insulin sliding scale Labs and medication were reviewed.. Continue same treatment. Continue with symptomatic treatment. Resume home medication. Monitor labs and vitals. DVT and GI prophylaxis. Further recommendations as per clinical course of the patient DVT prophylaxis: Eliquis GI prophylaxis: Ppi PT/OT: Pending Prognosis is guarded
[2022-05-16 19:53] LABS: Glucose,Whole Blood 182 mg/dL (70-110)
[2022-05-16] MEDS ORDERED: INSULIN DETEMIR (LEVEMIR) 100 UNIT/ML SYR SQ SCH (21:00)
[2022-05-16] MEDS: TAMSULOSIN 0.4 MG CAP.ER.24H PO SCH (21:04)
[2022-05-16] MEDS: FERROUS SULFATE 325 MG TAB PO SCH (21:04)
[2022-05-16] MEDS: SODIUM CHLORIDE 0.9% 1,000 ML IV SCH (23:49)
[2022-05-17 01:18] LABS: Glucose,Whole Blood 142 mg/dL (70-110)
[2022-05-17] MEDS: ACETAMINOPHEN TAB 325 MG TAB PO PRN (02:53)
[2022-05-17] MEDS: MELATONIN 5 MG TABLET PO PRN (02:55)
[2022-05-17] MEDS: AMPICILLIN-SULBACTAM 3 GM in SODIUM CHLORIDE 0.9% 100 ML IVPB SCH ×2 (05:35→13:24)
[2022-05-17 06:00] LABS: Glucose,Whole Blood 126 mg/dL (70-110)
[2022-05-17] MEDS: INSULIN ASPART (NovoLOG) 100 UNIT/ML VIAL SQ SCH ×2 (06:25→11:48)
[2022-05-17 08:00] VITALS: TEMP 97.4
[2022-05-17] MEDS: FINASTERIDE 5 MG TAB PO SCH (08:44)
[2022-05-17] MEDS: DULoxetine HCL 30 MG CAPSULE.DR PO SCH (08:44)
[2022-05-17] MEDS: APIXABAN 5 MG TAB PO SCH (08:45)
[2022-05-17] MEDS: METOPROLOL TARTRATE 25 MG TAB PO SCH (08:45)
[2022-05-17] MEDS: PANTOPRAZOLE 40 MG/10 ML VIAL IVP SCH (08:45)
[2022-05-17] MEDS: LORATADINE 10 MG TAB PO SCH (08:45)
--- NOTE | 2022-05-17 10:27 | P.DS ---
Providers Date of admission: 05/07/22 00:38 Attending physician: Xiomara Berrios Consults: 05/07/22 00:38 Consult Physician Routine Consulting Provider: Patrick Little Consult Reason/Comments: oncology Do you want consulting provider notified?: Yes Consult Physician Routine Consulting Provider: Thu Diaz Consult Reason/Comments: fever Do you want consulting provider notified?: Yes Primary care physician: [facility] Course: Diagnoses: Acute healthcare associated pneumonia, resolved significantly Sepsis with fever and leukocytosis. Resolved Watery diarrhea with no abdominal pain. C. diff is negative. This is his normal bowel movement pattern as per patient Recent loss of weight with low appetite, workup so far for possible cancer was unremarkable with oncology on the case, further workup is pending like PET Scan and others, patient stated he will follow-up outpatient with Dr. Little in one week as instructed Hypovolemic hyponatremia, resolved acute kidney injury on chronic kidney disease stage III, most likely prerenal.. Improved atrial fibrillation on Eliquis blood thinner at home Diabetes mellitus Hypertension Chronic anemia Hospital course: This is a pleasant 71 years old male with past medical history of diabetes mellitus, hypertension, chronic anemia, atrial fibrillation on Eliquis blood thinner at home. Patient has been having weight loss for a few months and his been followed closely by oncology team, workup was unremarkable, now is waiting for PET scan as well as of this negative he will need further workup for oncology team, patient is aware about this plan. This time he presents because of worsening dyspnea and sepsis, the source of infection was unknown at the beginning and patient has WBC computed tomography scan ordered by ID team, the results was suspicious for pneumonia. Patient was on Unasyn and he responded to treatment well. Over the last 2 days his breathing is quiet and back to baseline, he is saturating well on room air, no chest pain or significant coughing. Patient strength also improved and he thinks he is back close to his baseline Patient has a right colostomy and states that normally he has 4-5 watery bowel movement each day which is the case now. No abdominal pain. He tolerates that well. Kitchen Steward/Stewardess also evaluated the patient for A. fib, currently is on Eliquis 5 mg per cardiology's recommendation as well as metoprolol. At home he was on metoprolol 50 mg twice a day, during this admission was lowered to 25 mg twice a day, today I increased the dose to 25 mg 3 times a day with close monitoring of blood pressure and heart rate. Today patient is fully awake and oriented, calm and pleasant, denies any other symptoms. No chest pain or dyspnea or coughing. No abdominal pain or vomiting. No urinary complaints. No fever. Patient agreeable to be discharged today subacute rehab. Patient was cleared for discharge by all consultants including ID team, oncologist and electric utility lineworker Patient will be discharged on short course of oral Augmentin per ID team recommendation Problems and management plan were discussed with the patient and he verbalized understanding and acceptance Patient was found stable and can be discharged home in guarded prognosis however he needs follow-up as an outpatient. Patient was instructed to follow up with PCP Dr. Lord within one week and patient agrees Patient was instructed to follow up with oncologist Dr. astudillo in 1-2 weeks and he agrees Physical exam Gen: patient is a AAOx3, no distress CVS: S1-S2, RRR, no murmur Lungs: B/L CTA, no wheezing Abdomen: soft, no distention, no tenderness, positive bowel sounds Extremity: no leg edema or induration Time spent more than 35 minutes Patient Condition at Discharge: Fair Plan - Discharge Summary Discharge Rx Participant: No New Discharge Prescriptions: Continue Multivit-Min/FA/Lycopen/Lutein [Centrum Silver Men Tablet] 0.5 tab PO BID Tamsulosin [Flomax] 0.4 mg PO HS Finasteride [Proscar] 5 mg PO DAILY Omeprazole 40 mg PO QAM Ascorbic Acid [Vitamin C] 500 mg PO DAILY Latanoprost/Pf [Latanoprost 0.005% Eye Drop] 1 drop BOTH EYES HS Cranberry 450mg 1 tab PO HS DULoxetine HCL [Cymbalta] 90 mg PO DAILY Metoprolol Tartrate [Lopressor] 50 mg PO BID 30 Days #60 tab Acetaminophen Tab [Tylenol] 325 mg PO Q6HR PRN tab PRN Reason: Fever And/ Or Pain Pioglitazone [Actos] 30 mg PO MOWEFRSA Loperamide [Imodium] 2 - 4 mg PO QID PRN PRN Reason: Diarrhea Cholecalciferol [Vitamin D3 (25 Mcg = 1000 Iu)] 25 mcg PO DAILY Loratadine [Claritin] 10 mg PO DAILY Turmeric Root Extract [Turmeric] 1,000 mg PO BID Melatonin 5 mg PO HS PRN tablet PRN Reason: Insomnia Apixaban [Eliquis] 5 mg PO BID Insulin Lispro [humaLOG Kwikpen] 10 unit SQ TID-W/MEALS Insulin Glargine,Hum.rec.anlog [Basaglar Kwikpen U-100] 35 unit SQ HS Mirabegron [Myrbetriq] 50 mg PO DAILY Ferrous Sulfate [Iron (65 MG Elemental)] 325 mg PO HS Changed traMADol HCl [Ultram] 50 mg PO Q12HR PRN 3 Days #5 tab PRN Reason: Pain Discharge Medication List Finasteride [Proscar] 5 mg PO DAILY 02/06/17 [History] Multivit-Min/FA/Lycopen/Lutein [Centrum Silver Men Tablet] 0.5 tab PO BID 02/06/17 [History] Tamsulosin [Flomax] 0.4 mg PO HS 02/06/17 [History] Omeprazole 40 mg PO QAM 12/05/18 [History] Loratadine [Claritin] 10 mg PO DAILY 08/29/20 [History] Turmeric Root Extract [Turmeric] 1,000 mg PO BID 08/29/20 [History] Melatonin 5 mg PO HS PRN tablet 02/14/21 [Rx] Apixaban [Eliquis] 5 mg PO BID 01/12/22 [History] Ascorbic Acid [Vitamin C] 500 mg PO DAILY 01/12/22 [History] Cranberry 450mg 1 tab PO HS 01/12/22 [History] Latanoprost/Pf [Latanoprost 0.005% Eye Drop] 1 drop BOTH EYES HS 01/12/22 [History] DULoxetine HCL [Cymbalta] 90 mg PO DAILY 01/15/22 [History] Acetaminophen Tab [Tylenol] 325 mg PO Q6HR PRN tab 01/18/22 [Rx] Metoprolol Tartrate [Lopressor] 50 mg PO BID 30 Days #60 tab 01/18/22 [Rx] Insulin Glargine,Hum.rec.anlog [Basaglar Kwikpen U-100] 35 unit SQ HS 03/09/22 [History] Insulin Lispro [humaLOG Kwikpen] 10 unit SQ TID-W/MEALS 03/09/22 [History] Pioglitazone [Actos] 30 mg PO MOWEFRSA 03/09/22 [History] Cholecalciferol [Vitamin D3 (25 Mcg = 1000 Iu)] 25 mcg PO DAILY 05/06/22 [History] Ferrous Sulfate [Iron (65 MG Elemental)] 325 mg PO HS 05/06/22 [History] Loperamide [Imodium] 2 - 4 mg PO QID PRN 05/06/22 [History] Mirabegron [Myrbetriq] 50 mg PO DAILY 05/06/22 [History] traMADol HCl [Ultram] 50 mg PO Q12HR PRN 3 Days #5 tab 05/16/22 [Rx] Follow up Appointment(s)/Referral(s): Patrick Little MD [STAFF PHYSICIAN] - 06/08/22 11:15 am Miguel Bautista MD [Primary Care Provider] - 1-2 days Activity/Diet/Wound Care/Special Instructions: Dotatate PET scan being rescheduled. Will contact pt with new appt date and time
[2022-05-17 11:36] LABS: Glucose,Whole Blood 118 mg/dL (70-110)
[2022-05-17 11:37] VITALS: BP 125/79; PULSE 77
--- NOTE | 2022-05-17 13:53 | P.PN ---
Subjective Progress Note Date: 05/17/22 Principal diagnosis: weakness In f/u today pt is feeling better, he is breathing comfortably, he can ambulate short distance without difficulty breathing. No recent fevers, appetite is fair, no N,V, acute changes in bowel or bladder. He is going to rehab today Objective - Vital Signs Vital signs: Vital Signs Temp 97.4 F L 05/17/22 07:59 Pulse 77 05/17/22 11:37 Resp 18 05/17/22 11:37 BP 125/79 05/17/22 11:37 Pulse Ox 92 L 05/17/22 11:37 FiO2 21 05/07/22 15:27 Intake & Output 05/16/22 05/17/22 05/17/22 18:59 06:59 18:59 Intake Total 120 Output Total 2700 1890 1350 Balance -2580 -1890 -1350 Weight 67.132 kg Intake: Oral 120 Output: Urine 1200 400 300 Stool 1500 1490 800 Other 250 Other: Voiding Method External Catheter External Catheter External Catheter - Constitutional General appearance: Present: cooperative, no acute distress, thin - EENT Eyes: Present: anicteric sclerae, EOMI ENT: Present: hearing grossly normal - Respiratory Details: resp even and unlabored - Neurologic Neurologic: Present: CNII-XII intact - Musculoskeletal Musculoskeletal: Present: generalized weakness, strength equal bilaterally - Psychiatric Psychiatric: Present: A&O x's 3, appropriate affect, intact judgment & insight - Labs CBC & Chem 7: 05/16/22 10:58 05/16/22 10:58 Labs: Abnormal Lab Results - Last 24 Hours (Table) 05/16/22 05/16/22 05/17/22 Range/Units 16:49 19:52 01:14 POC Glucose (mg/dL) 129 H 182 H 142 H (70-110) mg/dL 05/17/22 05/17/22 Range/Units 05:58 11:35 POC Glucose (mg/dL) 126 H 118 H (70-110) mg/dL Microbiology - Last 24 Hours (Table) 05/10/22 16:32 Stool Culture - Final Stool Raine albicans Assessment and Plan (1) Fever Current Visit: Yes Status: Acute Priority: High Code(s): R50.9 - FEVER, UNSPECIFIED SNOMED Code(s): 912895837 (2) Generalized weakness Current Visit: Yes Status: Acute Priority: High Code(s): R53.1 - WEAKNESS SNOMED Code(s): 13173875 Plan: Cultures neg. Pt has improved on abx. Will complete course of abx per ID. Gen weakness from illness and hospitalization. He is going to rehab. Agree with plan Pt missed dotatate PET scan that was ordered. This will be rescheduled for 2-3 weeks so he is out of rehab. He will be contacted with appt date and time. He verbalized understanding.
[2022-05-17] MEDS ORDERED: METOPROLOL TARTRATE 25 MG TAB PO SCH (16:00)
--- NOTE | 2022-05-23 17:33 | CDI ---
Documentation Clarification Form Date: 05/23/2022 05:17:58 PM From: Rona Boyce Phone: Admit Date: 05/07/2022 12:38:00 AM Patient Name: Steve Morse Visit Number: [id number] Discharge Date: 05/17/2022 02:50:00 PM ATTENTION: The Clinical Documentation Specialists (CDI) and [facility] Coding Staff appreciate your assistance in clarifying documentation. Please respond to the clarification below the line at the bottom and electronically sign. The CDI & [facility] Coding staff will review the response and follow-up if needed. Please note: Queries are made part of the Legal Health Record. If you have any questions, please contact the author of this message via ITS. Dr. Shamir Eduardo Hydrocele is documented per Dr. Shamir Muhammad Progress Note 05/23/2022 which may lack sufficient clinical evidence/support in the medical record. Additional clarification is requested. History/Risk Factors: 71yo M, Typical atrial flutter, bacterial pneumonia, DMII, sepsis, HTN, DOM on CKD III w anemia, PAF, BPH w frequency Clinical Indicators: The hydrocele also trending down to 12.5 thousand. Treatment: Patient remains on IV Unasyn. Also he is on home dose of Eliquis no lower the IV fluid rate to 50 mL/h. PET scan still pending Please clarify if Hydrocele is a valid diagnosis? [ ] Yes, Hydrocele is present as evidence by (additional clinical support): [ ] No, Hydrocele is ruled out [ ] Other (please specify diagnosis) [ ] Unable to determine (Template Last Revised: August 2020) Unable to determine (there is no Progress Note 05/23/2022 ) MTDD
--- NOTE | 2022-05-24 11:23 | P.PN ---
Subjective Progress Note Date: 05/16/22 Principal diagnosis: Fever Patient is a 71-year-old male with a past medical history significant for diabetes mellitus hypertension patient did have a history of ulcerative colitis status post colectomy and did have ileostomy patient apparently recently being worked up by his oncologist for possible malignancy and the patient is scheduled for a PET scan as the patient did have about 50 pound weight loss.The patient has been brought into the hospital concerning for weakness and a fever apparently has been running a temperature of around 103 F over the last few day s On today's evaluation and that is 05/16/2022 the patient continues to be afebrile , the patient is breathing comfortably on room air, the patient right- sided chest pain has decreased in intensity, the patient denies shortness breath, the patient did have occasional cough no nausea no vomiting no abdominal pain no diarrhea Objective - Vital Signs Vital signs: Vital Signs Temp 98.5 F 05/16/22 12:00 Pulse 72 05/16/22 12:00 Resp 18 05/16/22 12:00 BP 132/76 05/16/22 12:00 Pulse Ox 97 05/16/22 12:00 FiO2 21 05/07/22 15:27 Intake & Output 05/15/22 05/16/22 05/16/22 18:59 06:59 18:59 Intake Total 720 10 Output Total 8504 402 1867 Balance -1255 -840 -1300 Weight 67.132 kg Intake: IV 10 Invasive Line 3 10 Oral 720 Output: Urine 800 400 600 Stool 1175 450 700 Other: Voiding Method External Catheter External Catheter External Catheter - Exam GENERAL DESCRIPTION: An elderly male lying in bed in no distress RESPIRATORY SYSTEM: Unlabored breathing , decreased breath sounds at bases HEART: S1 S2 regular rate and rhythm , ABDOMEN: Soft , no tenderness EXTREMITIES: No edema feet - Labs CBC & Chem 7: 05/16/22 10:58 05/16/22 10:58 Labs: Abnormal Lab Results - Last 24 Hours (Table) 05/15/22 05/16/22 05/16/22 Range/Units 20:08 02:53 03:08 WBC (3.8-10.6) k/uL RBC (4.30-5.90) m/uL Hgb (13.0-17.5) gm/dL Hct (39.0-53.0) % Sodium (137-145) mmol/L Glucose (74-99) mg/dL POC Glucose (mg/dL) 168 H 57 L 69 L (70-110) mg/dL Calcium (8.4-10.2) mg/dL Alkaline Phosphatase (38-126) U/L Total Protein (6.3-8.2) g/dL Albumin (3.5-5.0) g/dL 05/16/22 05/16/22 05/16/22 Range/Units 05:58 10:58 10:58 WBC 11.3 H (3.8-10.6) k/uL RBC 3.72 L (4.30-5.90) m/uL Hgb 10.6 L (13.0-17.5) gm/dL Hct 33.8 L (39.0-53.0) % Sodium 135 L (137-145) mmol/L Glucose 117 H (74-99) mg/dL POC Glucose (mg/dL) 127 H (70-110) mg/dL Calcium 7.9 L (8.4-10.2) mg/dL Alkaline Phosphatase 169 H (38-126) U/L Total Protein 5.4 L (6.3-8.2) g/dL Albumin 2.5 L (3.5-5.0) g/dL 05/16/22 Range/Units 11:46 WBC (3.8-10.6) k/uL RBC (4.30-5.90) m/uL Hgb (13.0-17.5) gm/dL Hct (39.0-53.0) % Sodium (137-145) mmol/L Glucose (74-99) mg/dL POC Glucose (mg/dL) 114 H (70-110) mg/dL Calcium (8.4-10.2) mg/dL Alkaline Phosphatase (38-126) U/L Total Protein (6.3-8.2) g/dL Albumin (3.5-5.0) g/dL Assessment and Plan (1) Fever Status: Acute Priority: High Code(s): R50.9 - FEVER, UNSPECIFIED SNOMED Code(s): 111489172 Plan: 1patient presented to hospital with a fever in this patient with no significant localizing signs or symptoms and initial work-up has been negative , patient did have a CT of abdominal pelvis as well as CT angiogram of the chest that was negative for any DVT or acute source of infection both CTs were reviewed with the radiologist, there is L 1 level kyphoplasty but no edema and the WBC scan did not point towards any a single focus of infection. 2the patient did have resolution of his fever and the white count has normalized, the patient cultures have been negative 3-patient has shown overall improvement on IV Unasyn to continue while inpatient and plan is to finish therapy with oral Augmentin on discharge Time with Patient: Less than 30
--- NOTE | 2022-05-24 11:24 | P.PN ---
Subjective Progress Note Date: 05/17/22 Principal diagnosis: Fever Patient is a 71-year-old male with a past medical history significant for diabetes mellitus hypertension patient did have a history of ulcerative colitis status post colectomy and did have ileostomy patient apparently recently being worked up by his oncologist for possible malignancy and the patient is scheduled for a PET scan as the patient did have about 50 pound weight loss.The patient has been brought into the hospital concerning for weakness and a fever apparently has been running a temperature of around 103 F over the last few day s On today's evaluation and that is 05/17/2022 the patient denies any fever or any chills, the patient is breathing comfortably on room air, the patient right- sided chest pain has almost resolved, the patient did have occasional cough no nausea no vomiting no abdominal pain no diarrhea Objective - Vital Signs Vital signs: Vital Signs Temp 97.4 F L 05/17/22 07:59 Pulse 77 05/17/22 11:37 Resp 18 05/17/22 11:37 BP 125/79 05/17/22 11:37 Pulse Ox 92 L 05/17/22 11:37 FiO2 21 05/07/22 15:27 Intake & Output 05/16/22 05/17/22 05/17/22 18:59 06:59 18:59 Intake Total 120 Output Total 2700 1890 1350 Balance -2580 -1890 -1350 Weight 67.132 kg Intake: Oral 120 Output: Urine 1200 400 300 Stool 1500 1490 800 Other 250 Other: Voiding Method External Catheter External Catheter External Catheter - Exam GENERAL DESCRIPTION: An elderly male lying in bed in no distress RESPIRATORY SYSTEM: Unlabored breathing , decreased breath sounds at bases HEART: S1 S2 regular rate and rhythm , ABDOMEN: Soft , no tenderness EXTREMITIES: No edema feet - Labs CBC & Chem 7: 05/16/22 10:58 05/16/22 10:58 Labs: Abnormal Lab Results - Last 24 Hours (Table) 05/16/22 05/16/22 05/16/22 Range/Units 10:58 10:58 11:46 WBC 11.3 H (3.8-10.6) k/uL RBC 3.72 L (4.30-5.90) m/uL Hgb 10.6 L (13.0-17.5) gm/dL Hct 33.8 L (39.0-53.0) % Sodium 135 L (137-145) mmol/L Glucose 117 H (74-99) mg/dL POC Glucose (mg/dL) 114 H (70-110) mg/dL Calcium 7.9 L (8.4-10.2) mg/dL Alkaline Phosphatase 169 H (38-126) U/L Total Protein 5.4 L (6.3-8.2) g/dL Albumin 2.5 L (3.5-5.0) g/dL 05/16/22 05/16/22 05/17/22 Range/Units 16:49 19:52 01:14 WBC (3.8-10.6) k/uL RBC (4.30-5.90) m/uL Hgb (13.0-17.5) gm/dL Hct (39.0-53.0) % Sodium (137-145) mmol/L Glucose (74-99) mg/dL POC Glucose (mg/dL) 129 H 182 H 142 H (70-110) mg/dL Calcium (8.4-10.2) mg/dL Alkaline Phosphatase (38-126) U/L Total Protein (6.3-8.2) g/dL Albumin (3.5-5.0) g/dL 05/17/22 05/17/22 Range/Units 05:58 11:35 WBC (3.8-10.6) k/uL RBC (4.30-5.90) m/uL Hgb (13.0-17.5) gm/dL Hct (39.0-53.0) % Sodium (137-145) mmol/L Glucose (74-99) mg/dL POC Glucose (mg/dL) 126 H 118 H (70-110) mg/dL Calcium (8.4-10.2) mg/dL Alkaline Phosphatase (38-126) U/L Total Protein (6.3-8.2) g/dL Albumin (3.5-5.0) g/dL Microbiology - Last 24 Hours (Table) 05/10/22 16:32 Stool Culture - Final Stool Raine albicans Assessment and Plan (1) Fever Status: Acute Priority: High Code(s): R50.9 - FEVER, UNSPECIFIED SNOMED Code(s): 351078665 Plan: 1patient presented to hospital with a fever in this patient with no significant localizing signs or symptoms and initial work-up has been negative , patient did have a CT of abdominal pelvis as well as CT angiogram of the chest that was negative for any DVT or acute source of infection both CTs were reviewed with the radiologist, there is L 1 level kyphoplasty but no edema and the WBC scan did not point towards any a single focus of infection. 2the patient did have resolution of his fever and the white count has normalized, the patient cultures have been negative 3-patient has shown overall improvement and plan is to finish therapy with oral Augmentin 10 days on discharge and it was outpatient follow-up Time with Patient: Less than 30
--- NOTE | 2022-05-30 12:25 | CDI ---
Documentation Clarification Form Date: 05/30/2022 12:20 PM From: Rona Boyce Phone: Admit Date: 05/07/2022 12:38:00 AM Patient Name: Steve Morse Visit Number: [id number] Discharge Date: 05/17/2022 02:50:00 PM ATTENTION: The Clinical Documentation Specialists (CDI) and [facility] Coding Staff appreciate your assistance in clarifying documentation. Please respond to the clarification below the line at the bottom and electronically sign. The CDI & [facility] Coding staff will review the response and follow-up if needed. Please note: Queries are made part of the Legal Health Record. If you have any questions, please contact the author of this message via ITS. Dr. Shamir Eduardo Thank you for your previously response. I have revised the date for the Progress Note in question. Hydrocele is documented per Dr. Shamir Muhammad Progress Note 05/12/2022 which may lack sufficient clinical evidence/support in the medical record. Additional clarification is requested. History/Risk Factors: 71yo M, Typical atrial flutter, bacterial pneumonia, DMII, sepsis, HTN, DOM on CKD III w anemia, PAF, BPH w frequency Clinical Indicators: The hydrocele also trending down to 12.5 thousand. Treatment: Patient remains on IV Unasyn. Also he is on home dose of Eliquis no lower the IV fluid rate to 50 mL/h. PET scan still pending Please clarify if Hydrocele is a valid diagnosis? [ ] Yes, Hydrocele is present as evidence by (additional clinical support): [ ] No, Hydrocele is ruled out [ ] Other (please specify diagnosis) [ ] Unable to determine (Template Last Revised: August 2020) No Hydrocele Dx (dictation error) MTDD
== END 2022-05-17 14:50 | DRG 871 ==
LOC: EC 21:12 → 3SCARD 05-07 00:38
PROVIDERS: ADMIT Hospitalist; ATTEND Hospitalist
PROC: 05HB33Z Insertion of Infusion Device into Right Basilic Vein, Percutaneous Approach (ICD-10-PCS; principal; 2022-05-11)
DX: A41.9 Sepsis, unspecified organism (principal); J15.9 Unspecified bacterial pneumonia; B37.89 Other sites of candidiasis; N17.9 Acute kidney failure, unspecified; J90 Pleural effusion, not elsewhere classified; E87.1 Hypo-osmolality and hyponatremia; K51.90 Ulcerative colitis, unspecified, without complications; J98.11 Atelectasis; I48.3 Typical atrial flutter; D63.1 Anemia in chronic kidney disease; E11.22 Type 2 diabetes mellitus with diabetic chronic kidney disease; N18.30 Chronic kidney disease, stage 3 unspecified; I12.9 Hypertensive chronic kidney disease with stage 1 through stage 4 chronic kidney disease, or unspecified chronic kidney disease; R63.4 Abnormal weight loss; I08.3 Combined rheumatic disorders of mitral, aortic and tricuspid valves; D72.821 Monocytosis (symptomatic); I25.10 Atherosclerotic heart disease of native coronary artery without angina pectoris; E78.5 Hyperlipidemia, unspecified; G47.33 Obstructive sleep apnea (adult) (pediatric); R63.0 Anorexia; N40.1 Benign prostatic hyperplasia with lower urinary tract symptoms; R35.0 Frequency of micturition; R53.81 Other malaise; I48.0 Paroxysmal atrial fibrillation; H91.90 Unspecified hearing loss, unspecified ear; Y95 Nosocomial condition; R30.0 Dysuria; R39.15 Urgency of urination; D72.89 Other specified disorders of white blood cells; Z93.3 Colostomy status; E86.1 Hypovolemia; K52.9 Noninfective gastroenteritis and colitis, unspecified; D72.9 Disorder of white blood cells, unspecified; Z96.653 Presence of artificial knee joint, bilateral; Z20.822 Contact with and (suspected) exposure to COVID-19; Z86.73 Personal history of transient ischemic attack (TIA), and cerebral infarction without residual deficits; Z95.1 Presence of aortocoronary bypass graft; Z90.49 Acquired absence of other specified parts of digestive tract; Z93.2 Ileostomy status; Z87.891 Personal history of nicotine dependence; Z79.01 Long term (current) use of anticoagulants; Z79.899 Other long term (current) drug therapy; Z79.4 Long term (current) use of insulin; Z79.84 Long term (current) use of oral hypoglycemic drugs; Z88.5 Allergy status to narcotic agent; Z28.310 Unvaccinated for COVID-19; Z68.20 Body mass index [BMI] 20.0-20.9, adult
CPT/HCPCS: 36410; 36415; 71045; 71110; 71275; 74177; 76937; 78306; 80048; 80053; 80076; 81001; 81003; 82150; 82306; 82607; 82668; 82728; 82747; 82784; 83036; 83540; 83550; 83605; 83615; 83630; 83690; 83735; 83880; 83883; 83921; 83993; 84100; 84145; 84165; 84425; 84443; 84482; 84484; 85025; 85027; 85045; 85610; 85652; 85730; 86038; 86039; 86334; 87040; 87045; 87046; 87324; 87636; 93005; 93306; 94760; 96361; 96365; 96366; 96375; 99291

== ENCOUNTER → 2022-05-27 | Outpatient (CLI) | payer MEDICARE ==
--- NOTE | 2022-05-30 22:54 | PE ---
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 Images are reviewed on the computer in the c oronal, axial, and sagittal planes. Reconstructed rotating images are created on independent worksta tion and reviewed on the computer. A non-contrast CT is performed in conjunction with the PET scan. COMPARISON: CT 05/07/2022, PET/CT None, FINDINGS: Mediastinal SUV mean is 0.7 cm. Hepatic parenchyma SUV mean is 4.6. SKULL BASE AND NECK: No suspicious radiotracer activity. Physiologic uptake within the pituitary gla nd max SUV 5.3 CHEST, MEDIASTINUM, AND HILAR REGION: No suspicious radiotracer activity. ABDOMEN AND PELVIS : * Patchy low-level radiotracer activity within the pancreatic head max SUV 5.1 * Left adrenal gland activity max SUV 6.7 * Right adrenal gland activity max SUV 7.2 * Patchy uptake within the pancreatic head max SUV 5.1. * Limited evaluation of liver secondary to physiologic uptake OSSEOUS STRUCTURES: No suspicious radiotracer activity. OTHER CT: Atherosclerosis of the arterial vasculature including the carotid bifurcations and coronary arteries. There is post CABG changes. There is borderline ectasia of the ascending thoracic aorta. S cattered upper abdominal lymph nodes surgical changes of bowel. The needle taken out and get IV or co alescent surrounded by in on the [facility] no [facility] scanner anywhere in [place] centimeters throug hout Measuring up to 8 mm in short axis. Anterior abdominal wall ostomy small amount of parastomal fa t. IMPRESSION: Misregistration artifact slightly limits evaluation, there is patchy uptake in the pancreatic head wi th mild increased activity no discrete abnormality visualized.
== END | disposition home or self-care (01) ==
LOC: RADPETMAIN 14:45
PROVIDERS: ATTEND Internal Medicine Hematology & Oncology
DX: E34.0 Carcinoid syndrome (principal); R93.3 Abnormal findings on diagnostic imaging of other parts of digestive tract
CPT/HCPCS: 78815; A9592

== ENCOUNTER → 2022-06-06 | Outpatient (CLI) | payer MEDICARE ==
[2022-06-06 22:42] LABS: Basophils # (A) 0.11 X 10*3/uL (0.00-0.10); Basophils % (A) 0.7 %; Eosinophils # (A) 0.16 X 10*3/uL (0.04-0.35); HCT 39.1 % (39.6-50.0); HGB 11.8 g/dL (13.0-17.0); Lymphocytes # (A) 1.25 X 10*3/uL (0.90-5.00); Lymphocytes % (A) 7.6 %; MCH 28.4 pg (27.0-32.0); MCHC 30.2 g/dL (32.0-37.0); Mean Platelet Volume 13.5 fL (9.5-12.2); Monocytes # (A) 0.95 X 10*3/uL (0.20-1.00); Monocytes % (A) 5.8 %; NRBC Per 100 WBC 0 /100 WBCS (0.0-0.0); Neutrophils # (A) 13.32 X 10*3/uL (1.80-7.70); Neutrophils % (A) 80.9 %; Platelet Count 349 X 10*3/uL (140-440); RBC 4.16 X 10*6/uL (4.40-5.60); RDW 16.8 % (11.5-14.5); WBC 16.45 X 10*3/uL (4.50-10.00)
[2022-06-06 22:44] LABS: African American GFR (CKD) 64.1 (60.0-200.0); Albumin 4.1 g/dL (3.8-4.9); Albumin/Globulin Ratio 1.19 (1.60-3.17); Anion Gap 12.7 mmol/L (10.00-18.00); BUN/Creat Ratio 21.5 Ratio (12.00-20.00); Blood Urea Nitrogen 27.3 mg/dL (9.0-27.0); C Reactive Protein 8.5 mg/dL (0.00-0.80); Calcium 10.2 mg/dL (8.7-10.3); Globulin 3.5 g/dL (1.6-3.3); Non-African American GFR(CKD) 55.3 (60.0-200.0); Potassium 5.3 mmol/L (3.5-5.5); Total Bilirubin 0.4 mg/dL (0.30-1.20); Total Protein 7.6 g/dL (6.2-8.2)
[2022-06-06 22:46] LABS: Erythrocyte Sedimentation Rate 68 mm/Hr (0-20)
== END | disposition home or self-care (01) ==
LOC: LABWHC1 14:12
PROVIDERS: ATTEND Internal Medicine Geriatric Medicine
DX: E11.65 Type 2 diabetes mellitus with hyperglycemia (principal); M79.10 Myalgia, unspecified site
CPT/HCPCS: 36415; 80053; 83036; 85025; 85652; 86140

== ENCOUNTER → 2022-06-10 | Outpatient (CLI) | payer MEDICARE | END | disposition home or self-care (01) | LOC: LABWHC1 14:45 | PROVIDERS: ATTEND Internal Medicine | DX: R63.4 Abnormal weight loss (principal) | CPT/HCPCS: 36415; 82941; 83519; 86316 ==

== ENCOUNTER → 2022-06-30 | Outpatient (CLI) | payer MEDICARE ==
[2022-07-01 00:58] LABS: Basophils # (A) 0.05 X 10*3/uL (0.00-0.10); Basophils % (A) 0.4 %; Eosinophils # (A) 0.26 X 10*3/uL (0.04-0.35); Eosinophils % (A) 2.1 %; HCT 39.1 % (39.6-50.0); HGB 11.8 g/dL (13.0-17.0); Lymphocytes # (A) 1.07 X 10*3/uL (0.90-5.00); Lymphocytes % (A) 8.5 %; MCH 28.8 pg (27.0-32.0); MCHC 30.2 g/dL (32.0-37.0); MCV 95.4 fL (80.0-97.0); Mean Platelet Volume 13.1 fL (9.5-12.2); Monocytes # (A) 0.95 X 10*3/uL (0.20-1.00); Monocytes % (A) 7.5 %; NRBC Per 100 WBC 0 /100 WBCS (0.0-0.0); Neutrophils # (A) 10.15 X 10*3/uL (1.80-7.70); Neutrophils % (A) 80.5 %; Platelet Count 324 X 10*3/uL (140-440); WBC 12.61 X 10*3/uL (4.50-10.00)
[2022-07-01 04:05] LABS: Albumin 4.3 g/dL (3.8-4.9); Albumin/Globulin Ratio 1.19 (1.60-3.17); Anion Gap 9.5 mmol/L (10.00-18.00); BUN/Creat Ratio 22.43 Ratio (12.00-20.00); Blood Urea Nitrogen 31.4 mg/dL (9.0-27.0); Calcium 9.9 mg/dL (8.7-10.3); Carbon Dioxide 24.5 mmol/L (20.0-27.5); Globulin 3.6 g/dL (1.6-3.3); Non-African American GFR(CKD) 49.1 (60.0-200.0); Potassium 5.5 mmol/L (3.5-5.5); Total Bilirubin 0.3 mg/dL (0.30-1.20); Total Protein 7.9 g/dL (6.2-8.2)
== END | disposition home or self-care (01) ==
LOC: LABWHC1 15:52
PROVIDERS: ATTEND Nurse Practitioner Family
DX: E11.65 Type 2 diabetes mellitus with hyperglycemia (principal)
CPT/HCPCS: 36415; 80053; 85025

== ENCOUNTER → 2022-07-05 | Outpatient (CLI) | payer MEDICARE ==
--- NOTE | 2022-07-05 17:33 | US ---
EXAMINATION TYPE: US kidneys/renal and bladder DATE OF EXAM: 07/05/2022 COMPARISON: 02/04/2022 CLINICAL HISTORY: 72-year-old male N28.1 RENAL CYST. TECHNIQUE: Multiple sonographic images of the kidneys and bladder are obtained. FINDINGS: EXAM MEASUREMENTS: Right Kidney: 10.8 x 5.3 x 5.4 cm Left Kidney: 10.5 x 4.7 x 4.5 cm Right Kidney: wnl. No hydronephrosis. Left Kidney: Hypoechoic cortical lesion at the upper pole measuring 1.1 x 1.2 x 1.3cm. Other prior cy sts not visualized on today's exam. No hydronephrosis. Bladder: Partial distention limits evaluation. Bilateral Jets seen: No IMPRESSION: 1. Hypoechoic cortical lesion upper pole left kidney measuring 1.3 cm. This seems to be in the same l ocation as a 3.2 cm cyst seen on 02/04/2022. Probable cyst decreasing in size. Internal echoes could b e artifactual or could represent debris. An additional 6 month follow-up to reassess. 2. No hydronephrosis.
== END | disposition home or self-care (01) ==
LOC: RADUSWWP 15:03
PROVIDERS: ATTEND Urology
DX: N28.1 Cyst of kidney, acquired (principal)
CPT/HCPCS: 76770

== ENCOUNTER → 2022-07-12 | Outpatient (CLI) | payer MEDICARE ==
[2022-07-12 16:20] LABS: Luteinizing Hormone 14.1 mIU/mL; Prolactin 10.5 ng/mL (2.100-17.700); T4, Free (Free Thyroxine) 0.92 ng/dL (0.800-1.800)
== END | disposition home or self-care (01) ==
LOC: LABWHC1 08:18
PROVIDERS: ATTEND Internal Medicine
DX: E27.9 Disorder of adrenal gland, unspecified (principal); R63.4 Abnormal weight loss
CPT/HCPCS: 36415; 82024; 82040; 82533; 83001; 83002; 84146; 84270; 84305; 84403; 84439; 84443

== ENCOUNTER 2022-10-08 15:39 | Emergency (ER) | payer MEDICARE ==
[2022-10-08 15:44] VITALS: TEMP 98
[2022-10-08] MEDS ORDERED: SODIUM CHLORIDE 0.9% 1,000 ML IV STA (16:18)
--- NOTE | 2022-10-08 16:33 | ED ---
General Adult HPI - General Chief complaint: Recheck/Abnormal Lab/Rx Stated complaint: Dehydration Time Seen by Provider: 10/08/22 15:59 Source: patient Mode of arrival: ambulatory Limitations: no limitations - History of Present Illness Initial comments: Patient is a 72-year-old male who presents to the emergency department with concern for dehydration. Patient has an ileostomy states there has been increased output for the past week. He denies history of C. diff. No blood in the stool. Patient states he feels dehydrated. He denies nausea, vomiting, abdominal pain. Patient has had intermittent fever. He was at Dr. Bautista's office earlier week and placed on flagyl. Patient and family very adamant that patient just needs IV fluids. He is tolerating oral intake. States he needs to be hydrated for Monday when he will go to [facility] for MRCP. Patient has been following with them for enlarged lymph nodes in the liver and pancreatic region. He will have them biopsied on Monday. He has had some weight loss over the past month. No night sweats. Patient and family refused any blood work or imaging. Patient denies chest pain, shortness of breath, cold-like symptoms, burning with urination. - Related Data Home Medications Medication Instructions Recorded Confirmed Finasteride [Proscar] 5 mg PO DAILY 02/06/17 05/06/22 Multivit-Min/FA/Lycopen/Lutein 0.5 tab PO BID 02/06/17 05/06/22 [Centrum Silver Men Tablet] Tamsulosin [Flomax] 0.4 mg PO HS 02/06/17 05/06/22 Omeprazole 40 mg PO QAM 12/05/18 05/06/22 Loratadine [Claritin] 10 mg PO DAILY 08/29/20 05/06/22 Turmeric Root Extract [Turmeric] 1,000 mg PO BID 08/29/20 05/06/22 Apixaban [Eliquis] 5 mg PO BID 01/12/22 05/06/22 Ascorbic Acid [Vitamin C] 500 mg PO DAILY 01/12/22 05/06/22 Cranberry 450mg 1 tab PO HS 01/12/22 05/06/22 Latanoprost/Pf [Latanoprost 0.005% 1 drop BOTH EYES HS 01/12/22 05/06/22 Eye Drop] DULoxetine HCL [Cymbalta] 90 mg PO DAILY 01/15/22 05/06/22 Cholecalciferol [Vitamin D3 (25 25 mcg PO DAILY 05/06/22 05/06/22 Mcg = 1000 Iu)] Ferrous Sulfate [Iron (65 MG 325 mg PO HS 05/06/22 05/06/22 Elemental)] Loperamide [Imodium] 2 - 4 mg PO QID PRN 05/06/22 05/06/22 Mirabegron [Myrbetriq] 50 mg PO DAILY 05/06/22 05/09/22 Previous Rx's Medication Instructions Recorded Melatonin 5 mg PO HS PRN tablet 02/14/21 Acetaminophen Tab [Tylenol] 325 mg PO Q6HR PRN tab 01/18/22 traMADol HCl [Ultram] 50 mg PO Q12HR PRN 3 Days #5 tab 05/16/22 Amoxic-Pot Clav 875-125Mg 1 tab PO BID 10 Days #20 tab 05/17/22 [Augmentin 875-125] INSULIN ASPART (NovoLOG) [NovoLOG 0 unit SQ ACHS each 05/17/22 (formulary)] Insulin Detemir (Levemir) [Levemir] 16 unit SQ HS each 05/17/22 Metoprolol Tartrate [Lopressor] 25 mg PO TID tab 05/17/22 Allergies Allergy/AdvReac Type Severity Reaction Status Date / Time codeine Allergy Rash/Hives Verified 10/08/22 15:44 morphine Allergy Rash/Hives Verified 10/08/22 15:44 Review of Systems ROS Statement: Those systems with pertinent positive or pertinent negative responses have been documented in the HPI. ROS Other: All systems not noted in ROS Statement are negative. 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, IDDM type II, ulcerative colitis/had J pouch and later ileostomy, chronic diarrhea/dehydration, ileal polyps, recurrent nephrolithiasis, pyelonephritis, BPH, ANGEL occasionally wears Cpap, chronic low iron, bilaterally HAVASUPAI/aides, takes eye drops to prevent glaucoma History of Any Multi-Drug Resistant Organisms: None Reported Past Surgical History: Appendectomy, Bowel Resection, Coronary Bypass/CABG, Heart Catheterization, Hernia Repair, Joint Replacement Additional Past Surgical History / Comment(s): 2020 CABG with 4 vessel bypass, colectomy with ileostomy, previous J pouch, colonoscopies, EGD, abdominal hernia/mesh, lithotripsy with R ureteral stent, L partial knee arthroplasty, bilateral cataract removal/lens implants, L eye surgery for detached retina. Past Anesthesia/Blood Transfusion Reactions: No Reported Reaction Additional Past Anesthesia/Blood Transfusion Reaction / Comment(s): PATIENT HAD SURGERY FOR LEFT EYE DETACHED RETINA AND DEVELOPED GAS BUBBLE IN L EYE. HE WAS INSTRUCTED TO NOT RECEIVE NITROUS OXIDE OR RIDE IN A PLANE UNTIL GAS BUBBLE IS GONE. Past Psychological History: Depression Smoking Status: Former smoker Past Alcohol Use History: None Reported Past Drug Use History: None Reported - Past Family History Mother Family Medical History: Cancer, Diabetes Mellitus Additional Family Medical History / Comment(s): Mother at age 84 from [place] Father Additional Family Medical History / Comment(s): Father is with history of coronary artery disease. Brother(s) Family Medical History: Coronary Artery Disease (CAD), Vascular Disorder Additional Family Medical History / Comment(s): Patient has 4 brothers. Two at the age of 44 from coronary artery disease with history of tobacco use and alcohol dependence. One from aneurysm in the chest. General Exam Limitations: no limitations General appearance: alert, in no apparent distress Head exam: Present: atraumatic, normocephalic, normal inspection Eye exam: Present: normal appearance, PERRL, EOMI. Absent: scleral icterus, conjunctival injection, periorbital swelling ENT exam: Present: normal oropharynx, mucous membranes moist Neck exam: Present: normal inspection, full ROM. Absent: tenderness Respiratory exam: Present: normal lung sounds bilaterally. Absent: respiratory distress, wheezes, rales, rhonchi, stridor Cardiovascular Exam: Present: regular rate, normal rhythm, normal heart sounds. Absent: systolic murmur, diastolic murmur, rubs, gallop, clicks GI/Abdominal exam: Present: soft, normal bowel sounds. Absent: distended, tenderness, guarding, rebound, rigid Rectal exam: Absent: bloody stool Neurological exam: Present: alert, oriented X3, CN II-XII intact Psychiatric exam: Present: normal affect, normal mood Skin exam: Present: warm, dry, intact, normal color. Absent: rash Course Vital Signs 10/08/22 15:40 Temperature 98 F Pulse Rate 91 Respiratory 20 Rate Blood Pressure 101/68 O2 Sat by Pulse 96 Oximetry Medical Decision Making - Medical Decision Making Was pt. sent in by a medical professional or institution (, PA, SALES REPRESENTATIVE PRINTING, urgent care, hospital, or care home...) When possible be specific @ -No Did you speak to anyone other than the patient for history (EMS, parent, family, police, friend...)? What history was obtained from this source @ -No Did you review nursing and triage notes (agree or disagree)? Why? @ -I reviewed and agree with nursing and triage notes Were old charts reviewed (outside hosp., previous admission, EMS record, old EKG, old radiological studies, urgent care reports/EKG's, care home records)? Report findings @ -No old charts were reviewed Differential Diagnosis (chest pain, altered mental status, abdominal pain women, abdominal pain men, vaginal bleeding, weakness, fever, dyspnea, syncope, headache, dizziness, GI bleed, back pain, seizure, CVA, palpatations, mental health)? @ -Differential Fever: Pneumonia, viral URI, endocarditis, myocarditis, pericarditis, otitis, sinusitis, peritonsillar Abscess, retropharyngeal Abscess, epiglottitis, peritonitis, appendicitis, Kaila cystitis, diverticulitis, hepatitis, colitis, UTI, PID, TOA, pyelonephritis, prostatitis, epididymitis, meningitis, encephalitis, pulmonary embolism, CVA, thyroid storm, pancreatitis, adrenal crisis, cavernous sinus thrombosis, this is not meant to be an all-inclusive list. EKG interpreted by me (3pts min.). @ -As above X-rays interpreted by me (1pt min.). @ -None done CT interpreted by me (1pt min.). @ -None done U/S interpreted by me (1pt. min.). @ -None done What testing was considered but not performed or refused? (CT, X-rays, U/S, labs)? Why? @ -None What meds were considered but not given or refused? Why? @ -None Did you discuss the management of the patient with other professionals (professionals i.e. , PA, SALES REPRESENTATIVE PRINTING, lab, RT, psych nurse, renal social worker, qualitative researcher, teacher, eeo officer, bottle caser)? Give summary @ -No Was smoking cessation discussed for >3mins.? @ -No Was critical care preformed (if so, how long)? @ -No Were there social determinants of health that impacted care today? How? (Homelessness, low income, unemployed, alcoholism, drug addiction, transportation, low edu. Level, literacy, decrease access to med. care, residential, rehab)? @ -No Was there de-escalation of care discussed even if they declined (Discuss DNR or withdrawal of care, Hospice)? DNR status @ -No What co-morbidities impacted this encounter? (DM, HTN, Smoking, COPD, CAD, Cancer, CVA, ARF, Chemo, Hep., AIDS, mental health diagnosis, sleep apnea, morbi d obesity)? @ -None Was patient admitted / discharged? Hospital course, mention meds given and route, prescriptions, significant lab abnormalities, going to OR and other pertinent info. @ -Patient presenting for IV fluid hydration. He is afebrile currently. Denies any pain. Refusing any testing. Patient given a fluid bolus and will be discharged home. We discussed return parameters prior to discharge. Undiagnosed new problem with uncertain prognosis? @ -No Drug Therapy requiring intensive monitoring for toxicity (Heparin, Nitro, Insulin, Cardizem)? @ -No Were any procedures done? @ -No Diagnosis/symptom? @ -dehydration Acute, or Chronic, or Acute on Chronic? @ -acute Uncomplicated (without systemic symptoms) or Complicated (systemic symptoms)? @ -uncomplicated Side effects of treatment? @ -No Exacerbation, Progression, or Severe Exacerbation? @ -No Poses a threat to life or bodily function? How? (Chest pain, USA, PR, pneumonia, PE, COPD, DKA, ARF, appy, cholecystitis, CVA, Diverticulitis, Homicidal, Suicidal, threat to staff... and all critical care pts) @ -No Dr. Felder is my attending Disposition Clinical Impression: Dehydration Disposition: HOME SELF-CARE Condition: Good Instructions (If sedation given, give patient instructions): Dehydration (ED) Additional Instructions: Increase fluid intake. Follow up with [facility] on Monday as planned. Return to the ED if you experience new, concerning, or worsening symptoms. Is patient prescribed a controlled substance at d/c from ED?: No Referrals: Miguel Bautista MD [Primary Care Provider] - 1-2 days
[2022-10-08 17:59] VITALS: BP 95/65; PULSE 84; RESP 18
== END 2022-10-08 17:59 | disposition home or self-care (01) ==
LOC: EC 15:39
DX: E86.0 Dehydration (principal); I48.91 Unspecified atrial fibrillation; I25.10 Atherosclerotic heart disease of native coronary artery without angina pectoris; E11.9 Type 2 diabetes mellitus without complications; K21.9 Gastro-esophageal reflux disease without esophagitis; I10 Essential (primary) hypertension; G47.30 Sleep apnea, unspecified; F32.A Depression, unspecified; Z87.891 Personal history of nicotine dependence; Z86.73 Personal history of transient ischemic attack (TIA), and cerebral infarction without residual deficits; Z79.01 Long term (current) use of anticoagulants; Z79.899 Other long term (current) drug therapy; Z88.5 Allergy status to narcotic agent
CPT/HCPCS: 96360; 99283

== ENCOUNTER → 2023-04-21 | Outpatient (CLI) | payer MEDICARE ==
[2023-04-22 02:02] LABS: Basophils # (A) 0.05 X 10*3/uL (0.00-0.10); Basophils % (A) 0.5 %; Eosinophils # (A) 0.21 X 10*3/uL (0.04-0.35); Eosinophils % (A) 2.1 %; HCT 43.2 % (39.6-50.0); HGB 13.2 g/dL (13.0-17.0); Lymphocytes # (A) 1.18 X 10*3/uL (0.90-5.00); MCH 28.3 pg (27.0-32.0); MCHC 30.6 g/dL (32.0-37.0); MCV 92.5 FL (80.0-97.0); Mean Platelet Volume 12.9 FL (9.5-12.2); Monocytes # (A) 0.67 X 10*3/uL (0.20-1.00); Monocytes % (A) 6.8 %; NRBC Per 100 WBC 0 X 10*3/uL (0.00-0.01); Neutrophils # (A) 7.68 X 10*3/uL (1.80-7.70); Neutrophils % (A) 77.8 %; Platelet Count 263 X 10*3/uL (140-440); RBC 4.67 X 10*6/uL (4.40-5.60); RDW 15.1 % (11.5-14.5); WBC 9.87 X 10*3/uL (4.50-10.00)
[2023-04-22 02:20] LABS: ALT 15 U/L (10-49); AST 27 U/L (14-35); Albumin 4.6 g/dL (3.8-4.9); Albumin/Globulin Ratio 1.31 Ratio (1.60-3.17); Alkaline Phosphatase 157 U/L (41-126); BUN/Creat Ratio 17.76 Ratio (12.00-20.00); Blood Urea Nitrogen 30.2 mg/dL (9.0-27.0); Calcium 10.2 mg/dL (8.7-10.3); Carbon Dioxide 18.9 mmol/L (21.6-31.8); Chloride 107 mmol/L (96-109); Globulin 3.5 g/dL (1.6-3.3); Glucose 147 mg/dL (70-110); Prostate Specific Antigen 0.47 ng/mL (0.000-6.500); Sodium 137 mmol/L (135-145); Total Bilirubin 0.3 mg/dL (0.3-1.2); Total Protein 8.1 g/dL (6.2-8.2)
== END | disposition home or self-care (01) ==
LOC: LABWHC1 14:19
PROVIDERS: ATTEND Internal Medicine Geriatric Medicine
DX: I48.0 Paroxysmal atrial fibrillation (principal); N40.1 Benign prostatic hyperplasia with lower urinary tract symptoms; E11.65 Type 2 diabetes mellitus with hyperglycemia; E78.2 Mixed hyperlipidemia; D64.9 Anemia, unspecified; R94.6 Abnormal results of thyroid function studies
CPT/HCPCS: 36415; 80053; 83036; 84153; 84443; 85025

== ENCOUNTER → 2023-05-08 | Outpatient (CLI) | payer MEDICARE ==
[2023-05-08 17:08] LABS: ALT 24 U/L (10-49); AST 35 U/L (14-35); Albumin 4.7 g/dL (3.8-4.9); Albumin/Globulin Ratio 1.31 Ratio (1.60-3.17); Alkaline Phosphatase 154 U/L (41-126); BUN/Creat Ratio 21.39 Ratio (12.00-20.00); Blood Urea Nitrogen 38.5 mg/dL (9.0-27.0); Calcium 10.7 mg/dL (8.7-10.3); Carbon Dioxide 15.4 mmol/L (21.6-31.8); Chloride 104 mmol/L (96-109); Globulin 3.6 g/dL (1.6-3.3); Glucose 156 mg/dL (70-110); Potassium 5.1 mmol/L (3.5-5.5); Sodium 135 mmol/L (135-145); Total Bilirubin 0.3 mg/dL (0.3-1.2); Total Protein 8.3 g/dL (6.2-8.2)
== END | disposition home or self-care (01) ==
LOC: LABWHC1 11:04
PROVIDERS: ATTEND Internal Medicine Geriatric Medicine
DX: I48.0 Paroxysmal atrial fibrillation (principal)
CPT/HCPCS: 36415; 80053

== ENCOUNTER → 2023-05-26 | Outpatient (CLI) | payer MEDICARE ==
[2023-05-26 18:52] LABS: Basophils # (A) 0.04 X 10*3/uL (0.00-0.10); Basophils % (A) 0.4 %; Eosinophils # (A) 0.17 X 10*3/uL (0.04-0.35); Eosinophils % (A) 1.8 %; HCT 39.8 % (39.6-50.0); HGB 12.6 g/dL (13.0-17.0); Lymphocytes # (A) 1.38 X 10*3/uL (0.90-5.00); Lymphocytes % (A) 14.5 %; MCH 28.8 pg (27.0-32.0); MCHC 31.7 g/dL (32.0-37.0); MCV 91.1 FL (80.0-97.0); Mean Platelet Volume 12.1 FL (9.5-12.2); Monocytes # (A) 0.67 X 10*3/uL (0.20-1.00); NRBC Per 100 WBC 0 X 10*3/uL (0.00-0.01); Neutrophils # (A) 7.13 X 10*3/uL (1.80-7.70); Platelet Count 241 X 10*3/uL (140-440); RBC 4.37 X 10*6/uL (4.40-5.60); RDW 14.8 % (11.5-14.5); WBC 9.51 X 10*3/uL (4.50-10.00)
[2023-05-26 18:53] LABS: ALT 14 U/L (10-49); AST 22 U/L (14-35); Albumin 4.2 g/dL (3.8-4.9); Albumin/Globulin Ratio 1.35 Ratio (1.60-3.17); Alkaline Phosphatase 125 U/L (41-126); BUN/Creat Ratio 14.41 Ratio (12.00-20.00); Bilirubin, Conjugated <0.20 mg/dL (0.20-0.40); Bilirubin,Unconjugated >0.10 mg/dL (0.20-1.00); Blood Urea Nitrogen 24.5 mg/dL (9.0-27.0); Calcium 9.5 mg/dL (8.7-10.3); Carbon Dioxide 20.3 mmol/L (21.6-31.8); Chloride 106 mmol/L (96-109); Globulin 3.1 g/dL (1.6-3.3); Glucose 140 mg/dL (70-110); Potassium 5.3 mmol/L (3.5-5.5); Sodium 136 mmol/L (135-145); Total Bilirubin 0.3 mg/dL (0.3-1.2); Total Protein 7.3 g/dL (6.2-8.2)
== END | disposition home or self-care (01) ==
LOC: LABWHC1 14:15
PROVIDERS: ATTEND Internal Medicine Gastroenterology
DX: K76.9 Liver disease, unspecified (principal)
CPT/HCPCS: 36415; 80048; 80076; 85025; 86301

== ENCOUNTER → 2023-11-11 | Outpatient (CLI) | payer MEDICARE ==
[2023-11-11 23:17] LABS: Basophils # (A) 0.06 X 10*3/uL (0.00-0.10); Basophils % (A) 0.7 %; Eosinophils # (A) 0.15 X 10*3/uL (0.04-0.35); Eosinophils % (A) 1.6 %; HCT 38.3 % (39.6-50.0); HGB 11.8 g/dL (13.0-17.0); Lymphocytes # (A) 0.93 X 10*3/uL (0.90-5.00); Lymphocytes % (A) 10.1 %; MCH 29.3 pg (27.0-32.0); MCHC 30.8 g/dL (32.0-37.0); Mean Platelet Volume 13.2 FL (9.5-12.2); Monocytes # (A) 0.77 X 10*3/uL (0.20-1.00); Monocytes % (A) 8.4 %; NRBC Per 100 WBC 0 X 10*3/uL (0.00-0.01); Neutrophils # (A) 7.24 X 10*3/uL (1.80-7.70); Neutrophils % (A) 78.5 %; Platelet Count 180 X 10*3/uL (140-440); RBC 4.03 X 10*6/uL (4.40-5.60); RDW 14.1 % (11.5-14.5); WBC 9.21 X 10*3/uL (4.50-10.00)
[2023-11-11 23:26] LABS: Erythrocyte Sedimentation Rate 74 mm/Hr (0-20)
== END | disposition home or self-care (01) ==
LOC: LABWHC1 10:39
PROVIDERS: ATTEND Internal Medicine Interventional Cardiology
DX: K52.81 Eosinophilic gastritis or gastroenteritis (principal)
CPT/HCPCS: 36415; 85025; 85652; 86140

== ENCOUNTER → 2023-11-20 | Outpatient (CLI) | payer MEDICARE ==
[2023-11-20 15:34] LABS: Basophils # (A) 0.05 X 10*3/uL (0.00-0.10); Basophils % (A) 0.6 %; Eosinophils # (A) 0.15 X 10*3/uL (0.04-0.35); Eosinophils % (A) 1.7 %; HCT 38.6 % (39.6-50.0); HGB 11.9 g/dL (13.0-17.0); Lymphocytes # (A) 0.88 X 10*3/uL (0.90-5.00); MCH 28.7 pg (27.0-32.0); MCHC 30.8 g/dL (32.0-37.0); Mean Platelet Volume 12.6 FL (9.5-12.2); Monocytes % (A) 7.9 %; NRBC Per 100 WBC 0 X 10*3/uL (0.00-0.01); Neutrophils # (A) 6.98 X 10*3/uL (1.80-7.70); Neutrophils % (A) 79.1 %; Platelet Count 206 X 10*3/uL (140-440); RBC 4.15 X 10*6/uL (4.40-5.60); RDW 14.3 % (11.5-14.5); WBC 8.82 X 10*3/uL (4.50-10.00)
[2023-11-20 15:57] LABS: BUN/Creat Ratio 16.73 Ratio (12.00-20.00); Blood Urea Nitrogen 25.1 mg/dL (9.0-27.0); Chloride 108 mmol/L (96-109); Chol/HDL Ratio 3.07 Ratio; Glucose 142 mg/dL (70-110); LDL Cholesterol,Calculated 58.3 mg/dL (0.0-131.0); Potassium 5.3 mmol/L (3.5-5.5); Sodium 140 mmol/L (135-145); Uric Acid 7.8 mg/dL (3.7-8.7)
[2023-11-20 15:58] LABS: ALT 15 U/L (10-49); AST 21 U/L (14-35); Albumin 4.5 g/dL (3.8-4.9); Albumin/Globulin Ratio 1.45 Ratio (1.60-3.17); Alkaline Phosphatase 115 U/L (41-126); Calcium 9.8 mg/dL (8.7-10.3); Globulin 3.1 g/dL (1.6-3.3); Prostate Specific Antigen 0.56 ng/mL (0.000-6.500); Total Bilirubin <0.2 mg/dL (0.3-1.2); Total Protein 7.6 g/dL (6.2-8.2)
[2023-11-20 22:50] LABS: Microalbumin Creatinine Ratio <7 mg/g Cr (0-30)
== END | disposition home or self-care (01) ==
LOC: LABWHC1 10:08
PROVIDERS: ATTEND Internal Medicine Geriatric Medicine
DX: E11.22 Type 2 diabetes mellitus with diabetic chronic kidney disease (principal); E11.65 Type 2 diabetes mellitus with hyperglycemia; I48.0 Paroxysmal atrial fibrillation; N18.32 Chronic kidney disease, stage 3b; N40.1 Benign prostatic hyperplasia with lower urinary tract symptoms
CPT/HCPCS: 36415; 80053; 80061; 82043; 82570; 83036; 84153; 84443; 84550; 85025

== ENCOUNTER → 2024-04-19 | Outpatient (CLI) | payer MEDICARE ==
[2024-04-19 15:37] LABS: ALT 11 U/L (10-49); Creatine Kinase 24 U/L (35-257); LDL Cholesterol,Calculated 33.2 mg/dL (0.0-131.0)
[2024-04-19 15:38] LABS: AST 21 U/L (14-35); Chol/HDL Ratio 2.76 Ratio
== END | disposition home or self-care (01) ==
LOC: LABWHC1 10:28
PROVIDERS: ATTEND Internal Medicine
DX: I25.10 Atherosclerotic heart disease of native coronary artery without angina pectoris (principal); E78.5 Hyperlipidemia, unspecified
CPT/HCPCS: 36415; 80061; 82550; 84450; 84460

== ENCOUNTER 2024-07-01 17:39 | Inpatient (IN) | payer MEDICARE ==
--- NOTE | 2024-07-01 17:48 | ED ---
Chest Pain HPI - General Source: patient, RN notes reviewed Mode of arrival: ambulatory Limitations: no limitations - History of Present Illness MD Complaint: chest pain <Kim Andrea - Last Filed: 07/01/24 17:46> - General Source: patient, family, RN/MD (Dr. Gaitan), RN notes reviewed Mode of arrival: ambulatory Limitations: no limitations <Roger Felder - Last Filed: 07/01/24 20:21> - General Chief Complaint: Chest Pain Stated Complaint: chest pain Time Seen by Provider: 07/01/24 17:43 - History of Present Illness Initial Comments: Quick Note: This is a 74-year-old male who presents to the emergency department for chest pain. Patient states that it has been intermittent for the last 3 days and seems to get worse with activity. Pain goes into the jaw as well. He does have a history of a quadruple bypass. Reports associated shortness of breath. (Kim Andrea) Patient is a 74-year-old male presenting to the emergency department with concerns with chest discomfort. Onset of symptoms was 2 to 3 days ago. Patient has symptoms, especially with exertion. There is some mild associated dyspnea. Patient is on Eliquis. Patient has history of heart disease and previous CABG. Discomfort was more severe earlier, rated 7/10. Discomfort is very mild at this time, more in the shoulder region. Patient did have some jaw discomfort earlier. Patient did have some brief chills and shaking as well. (Roger Felder) - Related Data Home Medications Medication Instructions Recorded Confirmed Finasteride [Proscar] 5 mg PO DAILY 02/06/17 07/01/24 Tamsulosin [Flomax] 0.4 mg PO HS 02/06/17 07/01/24 Loratadine [Claritin] 10 mg PO DAILY 08/29/20 07/01/24 Turmeric Root Extract [Turmeric] 1,000 mg PO DAILY 08/29/20 07/01/24 Apixaban [Eliquis] 5 mg PO BID 01/12/22 07/01/24 Ascorbic Acid [Vitamin C] 500 mg PO DAILY 01/12/22 07/01/24 DULoxetine HCL [Cymbalta] 30 mg PO DAILY 01/15/22 07/01/24 Cholecalciferol [Vitamin D3 (25 25 mcg PO DAILY 05/06/22 07/01/24 Mcg = 1000 Iu)] Ferrous Sulfate [Iron (65 MG 325 mg PO HS 05/06/22 07/01/24 Elemental)] Loperamide [Imodium] 8 mg PO TID 05/06/22 07/01/24 Atorvastatin [Lipitor] 10 mg PO HS 07/01/24 07/01/24 Cranberry(Unknown Dose) 1 cap PO HS 07/01/24 07/01/24 Fesoterodine Fumarate 8 mg PO DAILY 07/01/24 07/01/24 [Fesoterodine Fumarate ER] Folate 400mg 400 mg PO HS 07/01/24 07/01/24 Guar Gum 400 2 tab PO BID 07/01/24 07/01/24 Insulin Glargine,Hum.rec.anlog 35 unit SQ HS 07/01/24 07/01/24 [Basaglar Kwikpen U-100] Insulin Lispro [humaLOG Kwikpen] 8 unit SQ AC-BID@0800,1200 07/01/24 07/01/24 Insulin Lispro [humaLOG Kwikpen] 10 unit SQ AC-SUPPER 07/01/24 07/01/24 Loratadine [Claritin] 10 mg PO DAILY PRN 07/01/24 07/01/24 Melatonin 5 mg PO HS 07/01/24 07/01/24 Metoprolol Tartrate [Lopressor] 25 mg PO BID@1800,2100 07/01/24 07/01/24 Metoprolol Tartrate [Lopressor] 50 mg PO DAILY 07/01/24 07/01/24 Omeprazole 20 mg PO DAILY 07/01/24 07/01/24 Pioglitazone [Actos] 15 mg PO MOWEFR 07/01/24 07/01/24 Turmeric Root Extract [Turmeric 500 mg PO HS 07/01/24 07/01/24 Curcumin] Allergies Allergy/AdvReac Type Severity Reaction Status Date / Time codeine Allergy Rash/Hives Verified 07/01/24 19:04 morphine Allergy Rash/Hives Verified 07/01/24 19:04 Review of Systems ROS Other: All systems not noted in ROS Statement are negative. <Kim Andrea - Last Filed: 07/01/24 17:46> ROS Other: All systems not noted in ROS Statement are negative. Constitutional: Reports: as per HPI, chills Eyes: Denies: eye pain ENT: Denies: ear pain Respiratory: Reports: as per HPI Cardiovascular: Reports: as per HPI, chest pain, dyspnea on exertion Gastrointestinal: Denies: abdominal pain Musculoskeletal: Denies: back pain <FelderRoger - Last Filed: 07/01/24 20:21> ROS Statement: Those systems with pertinent positive or pertinent negative responses have been documented in the HPI. EKG Findings - EKG Results: EKG: interpreted by ERMD (Left axis. 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, IDDM type II, ulcerative colitis/had J pouch and later ileostomy, chronic diarrhea/dehydration, ileal polyps, recurrent nephrolithiasis, pyelonephritis, BPH, ANGEL occasionally wears Cpap, chronic low iron, bilaterally SENECA/aides, takes eye drops to prevent glaucoma History of Any Multi-Drug Resistant Organisms: None Reported Past Surgical History: Appendectomy, Bowel Resection, Coronary Bypass/CABG, Heart Catheterization, Hernia Repair, Joint Replacement Additional Past Surgical History / Comment(s): 2020 CABG with 4 vessel bypass, colectomy with ileostomy, previous J pouch, colonoscopies, EGD, abdominal hernia/mesh, lithotripsy with R ureteral stent, L partial knee arthroplasty, bilateral cataract removal/lens implants, L eye surgery for detached retina. Past Anesthesia/Blood Transfusion Reactions: No Reported Reaction Additional Past Anesthesia/Blood Transfusion Reaction / Comment(s): PATIENT HAD SURGERY FOR LEFT EYE DETACHED RETINA AND DEVELOPED GAS BUBBLE IN L EYE. HE WAS INSTRUCTED TO NOT RECEIVE NITROUS OXIDE OR RIDE IN A PLANE UNTIL GAS BUBBLE IS GONE. Past Psychological History: Depression Smoking Status: Former smoker Past Alcohol Use History: None Reported Past Drug Use History: None Reported - Past Family History Mother Family Medical History: Cancer, Diabetes Mellitus Additional Family Medical History / Comment(s): Mother at age 84 from [place] Father Additional Family Medical History / Comment(s): Father is with history of coronary artery disease. Brother(s) Family Medical History: Coronary Artery Disease (CAD), Vascular Disorder Additional Family Medical History / Comment(s): Patient has 4 brothers. Two at the age of 44 from coronary artery disease with history of tobacco use and alcohol dependence. One from aneurysm in the chest. <Kim Andrea - Last Filed: 07/01/24 17:46> General Exam <Kim Andrea - Last Filed: 07/01/24 17:46> Limitations: no limitations General appearance: alert, in no apparent distress Head exam: Present: normocephalic Eye exam: Present: normal appearance Neck exam: Present: normal inspection Respiratory exam: Present: normal lung sounds bilaterally Cardiovascular Exam: Present: regular rate, normal rhythm, normal heart sounds Expanded Peripheral pulses: 2+: Radial (R), Radial (L), Posterior Tibialis (R), Posterior Tibialis (L) GI/Abdominal exam: Present: soft. Absent: tenderness Extremities exam: Present: normal inspection. Absent: pedal edema, calf tenderness Neurological exam: Present: alert Psychiatric exam: Present: normal affect, normal mood Skin exam: Present: normal color <Roger Felder - Last Filed: 07/01/24 20:21> - General Exam Comments Initial Comments: Visual Physical Exam Vital signs reviewed General: Well-appearing, nontoxic, no acute distress. Head: Normocephalic, atraumatic Eyes: PERRLA, EOMI ENT: Airway patent Chest: Nonlabored breathing Skin: No visual rash, normal skin tone Neuro: Alert and oriented 3 Musculoskeletal: No gross abnormalities (Kim Andrea) Course Vital Signs 07/01/24 17:45 Temperature 98.4 F Pulse Rate 94 Respiratory 20 Rate Blood Pressure 118/85 O2 Sat by Pulse 98 Oximetry Chest Pain MDM <Kim Andrea - Last Filed: 07/01/24 17:46> <Roger Felder - Last Filed: 07/01/24 20:21> - MDM I performed the QuickNote portion of this chart. Signed Kim Andrea PA-C. (Kim Andrea) Was pt. sent in by a medical professional or institution (, [facility]RISTIAN, COURT REPORTER, urgent care, hospital, or fdc...) When possible be specific @ -No Did you speak to anyone other than the patient for history (EMS, parent, family, police, friend...)? What history was obtained from this source @ - is present helps provide history including patient's previous cardiac disease Did you review nursing and triage notes (agree or disagree)? Why? @ -I reviewed and agree with nursing and triage notes Were old charts reviewed (outside hosp., previous admission, EMS record, old EKG, old radiological studies, urgent care reports/EKG's, fdc records)? Report findings @ -No old charts were reviewed Differential Diagnosis (chest pain, altered mental status, abdominal pain women, abdominal pain men, vaginal bleeding, weakness, fever, dyspnea, syncope, headache, dizziness, GI bleed, back pain, seizure, CVA, palpatations, mental health, musculoskeletal)? @ -Differential Chest Pain: Stable Angina, Unstable Angina, STEMI, NSTEMI Aortic Dissection, Pneumothorax, Musculoskeletal, Esophageal Spasm GERD, Cholecystitis, Pancreatitis, Zoster, this is not meant to be an all-inclusive list. EKG interpreted by me (3pts min.). @ -As above X-rays interpreted by me (1pt min.). @ -Chest x-ray shows no acute process CT interpreted by me (1pt min.). @ -None done U/S interpreted by me (1pt. min.). @ -None done What testing was considered but not performed or refused? (CT, X-rays, U/S, labs)? Why? @ -None What meds were considered but not given or refused? Why? @ -None Did you discuss the management of the patient with other professionals (professionals i.e. , CHRISTIAN, COURT REPORTER, lab, RT, psych nurse, social sciences instructor, attorney lawyer, teacher, multisensor intelligence officer, case loader operator)? Give summary @ -Case discussed with practitioner Shiela Osman who will admit covering Dr. Leija Was smoking cessation discussed for >3mins.? @ -No Was critical care preformed (if so, how long)? @ -No Were there social determinants of health that impacted care today? How? (Homelessness, low income, unemployed, alcoholism, drug addiction, transportation, low edu. Level, literacy, decrease access to med. care, [facility], rehab)? @ -No Was there de-escalation of care discussed even if they declined (Discuss DNR or withdrawal of care, Hospice)? DNR status @ -No What co-morbidities impacted this encounter? (DM, HTN, Smoking, COPD, CAD, Cancer, CVA, ARF, Chemo, Hep., AIDS, mental health diagnosis, sleep apnea, morbid obesity)? @ -History of cardiac disease Was patient admitted / discharged? Hospital course, mention meds given and route, prescriptions, significant lab abnormalities, going to OR and other pertinent info. @ -Patient presents with chest discomfort worse with exertion. Initial troponin unremarkable. Patient to be admitted with cardiac consult. Admission orders written. Patient reevaluated and updated. Undiagnosed new problem with uncertain prognosis? @ -No Drug Therapy requiring intensive monitoring for toxicity (Heparin, Nitro, Insulin, Cardizem)? @ -No Were any procedures done? @ -No Diagnosis/symptom? @ -Chest pain Acute, or Chronic, or Acute on Chronic? @ -Acute Uncomplicated (without systemic symptoms) or Complicated (systemic symptoms)? @ -Default Side effects of treatment? @ -No Exacerbation, Progression, or Severe Exacerbation? @ -No Poses a threat to life or bodily function? How? (Chest pain, USA, DC, pneumonia, PE, COPD, DKA, ARF, appy, cholecystitis, CVA, Diverticulitis, Homicidal, Suicidal, threat to staff... and all critical care pts) @ -Threat to cardiac function (Roger Felder) Disposition <Kim Andrea - Last Filed: 07/01/24 17:46> Is patient prescribed a controlled substance at d/c from ED?: No Time of Disposition: 20:21 <Roger Felder - Last Filed: 07/01/24 20:21> Clinical Impression: Chest pain Disposition: ADMITTED IP TO THIS HOSP Referrals: Miguel Bautista MD [Primary Care Provider] - 1-2 days
[2024-07-01 18:27] LABS: Basophils % (A) 0 %; Eosinophils # (A) 0.2 k/uL (0-0.7); Eosinophils % (A) 2 %; HCT 36.4 % (39.0-53.0); HGB 11.7 gm/dL (13.0-17.5); Lymphocytes # (A) 1.1 k/uL (1.0-4.8); Lymphocytes % (A) 9 %; MCH 29.6 pg (25.0-35.0); MCHC 32.2 g/dL (31.0-37.0); MCV 92.1 fL (80.0-100.0); Mean Platelet Volume 9.3; Monocytes # (A) 0.5 k/uL (0-1.0); Monocytes % (A) 4 %; Neutrophils # (A) 10.4 k/uL (1.3-7.7); Neutrophils % (A) 84 %; Platelet Count 235 k/uL (150-450); RBC 3.95 m/uL (4.30-5.90); RDW 14.3 % (11.5-15.5); WBC 12.3 k/uL (3.8-10.6)
[2024-07-01 18:35] LABS: Prothrombin Time 11.5 sec (10.0-12.5)
[2024-07-01 18:41] LABS: ALT 17 U/L (4-49); AST 26 U/L (17-59); African American GFR (CKD) 55 (>60 ml/min/1.73 sqM); Albumin 3.9 g/dL (3.5-5.0); Alkaline Phosphatase 131 U/L (38-126); Anion Gap 13 mmol/L; Blood Urea Nitrogen 19 mg/dL (9-20); Calcium 9.4 mg/dL (8.4-10.2); Carbon Dioxide 22 mmol/L (22-30); Chloride 102 mmol/L (98-107); Glucose 173 mg/dL (74-99); Magnesium 1.9 mg/dL (1.6-2.3); Non-African American GFR(CKD) 48 (>60 ml/min/1.73 sqM); Sodium 137 mmol/L (137-145); Total Bilirubin 0.4 mg/dL (0.2-1.3); Total Protein 7.2 g/dL (6.3-8.2)
--- NOTE | 2024-07-01 19:06 | XR ---
EXAMINATION TYPE: XR chest 2V DATE OF EXAM: 07/01/2024 6:59 PM CLINICAL INDICATION:Male, 74 years old with history of Chest Pain; [facility] COMPARISON: Radiograph 08/18/2022 TECHNIQUE: XR chest 2V Frontal view of the chest. FINDINGS: Lungs/Pleura: There is no evidence of pleural effusion, focal consolidation, or pneumothorax. Pulmonary vascularity: Unremarkable. Heart/mediastinum: Cardiomediastinal silhouette is unremarkable. Musculoskeletal: Right-sided rib 6 and 7 deformities are seen. Midline sternotomy wires are stable. IMPRESSION: 1. No acute cardiopulmonary disease/process. 2. Age indeterminate right-sided rib deformities correlate with point tenderness and history of traum a. [facility], , 07/01/2024 7:03 PM
[2024-07-01] MEDS ORDERED: NITROGLYCERIN SL TABS 0.4 MG TAB SUBLINGUAL PRN (20:21)
[2024-07-01] MEDS ORDERED: NON FORMULARY DRUG (Turmeric Root Extract [Turmeric Curcumin] 500 MG Capsule) PO SCH (21:00)
[2024-07-01] MEDS ORDERED: GUAR GUM PO SCH (21:00)
[2024-07-01] MEDS ORDERED: CRANBERRY PO SCH (21:00)
[2024-07-01] MEDS: NITROGLYCERIN OINT 1 INCH/GM PACKET TOPICAL STA (21:59)
[2024-07-01] MEDS: INSULIN DETEMIR (LEVEMIR) 100 UNIT/ML SYR SQ SCH (22:03)
[2024-07-01] MEDS: ASPIRIN 81 MG PO STA (22:10)
[2024-07-01] MEDS: FOLIC ACID 1 MG TAB PO SCH (22:11)
[2024-07-01] MEDS: METOPROLOL TARTRATE 25 MG TAB PO SCH (22:11)
[2024-07-01] MEDS: TAMSULOSIN 0.4 MG CAP.ER.24H PO SCH (22:11)
[2024-07-01] MEDS: ATORVASTATIN 10 MG TAB PO SCH (22:11)
[2024-07-01] MEDS: FERROUS SULFATE 325 MG TAB PO SCH (22:11)
[2024-07-01] MEDS: MELATONIN 5 MG TABLET PO SCH (22:11)
[2024-07-01] MEDS: APIXABAN 5 MG TAB PO SCH (22:11)
[2024-07-01 22:37] LABS: Influenza A Not Detected (Not Detectd); Influenza B Not Detected (Not Detectd); RSV Not Detected (Not Detectd)
[2024-07-01] MEDS: NITROGLYCERIN OINT 1 INCH/GM PACKET TOPICAL SCH (23:57)
[2024-07-02 01:45] LABS: Appearance,Urine Clear (Clear); Bilirubin,Urine Negative (Negative); Blood,Urine Negative (Negative); Color,Urine Yellow; Glucose,Urine (UA) Negative (Negative); Ketones,Urine Negative (Negative); Leukocyte Esterase,Urine Negative (Negative); Nitrite,Urine Negative (Negative); Protein,Urine Trace (Negative); Specific Gravity,Urine 1.017 (1.001-1.035); Urobilinogen,Urine <2.0 mg/dL (<2.0)
[2024-07-02] MEDS: INSULIN ASPART (NovoLOG) 100 UNIT/ML VIAL SQ SCH ×2 (07:54→17:23)
[2024-07-02] MEDS: METOPROLOL TARTRATE 50 MG TAB PO SCH (07:56)
[2024-07-02] MEDS: FINASTERIDE 5 MG TAB PO SCH (08:03)
[2024-07-02] MEDS: DULoxetine HCL 30 MG CAPSULE.DR PO SCH (08:04)
[2024-07-02] MEDS: LORATADINE 10 MG TAB PO SCH (08:04)
[2024-07-02] MEDS: ASCORBIC ACID 500 MG TAB PO SCH (08:05)
[2024-07-02] MEDS: PANTOPRAZOLE 40 MG TABLET PO SCH (08:05)
[2024-07-02] MEDS: ASPIRIN 325 MG TAB PO SCH (08:05)
[2024-07-02] MEDS: CHOLECALCIFEROL 25 MCG (1000 IU) TABLET PO SCH (08:05)
[2024-07-02] MEDS: FESOTERODINE FUMARATE 8 MG PO SCH (08:06)
--- NOTE | 2024-07-02 08:10 | P.HPIM ---
History of Present Illness This is a pleasant 74 years old male with past medical history of multiple medical problems as below including history of coronary artery disease status post CABG, diabetes mellitus. A-fib on Eliquis Patient also was not on aspirin at home but added here in the hospital. He presents initially because of chest pain and jaw pain which are separate. Chest pain is about for 3 days 12/19. In the middle of the chest radiating to the left shoulder increased with activity and decreased with sitting associated with mild jaw pain on the right side No dyspnea or coughing. No specific GI or symptoms no fever or chills He denies smoking or illicit drugs and he used alcohol occasionally No recent fall His manager games is Dr. Gaitan Is afebrile and blood pressure is stable Mild leukocytosis at 12.3 and hemoglobin 11.7 well creatinine at baseline at 1.4 with baseline 1.1-1.5 D-dimer was elevated at 0.61 with a reference 0.60, co rrected for age it will be within the reference range not elevated, this makes acute pulm embolism very unlikely. EKG showing sinus rhythm at [address]-T changes Chest x-ray showing right side rib deformity which could be secondary to trauma. No acute process. Echocardiogram is pending Patient continued on Eliquis 5 mg and aspirin 325 mg Review of Systems Review of systems CONSTITUTIONAL: No fever, no malaise, no fatigue. HEENT: No recent visual problems or hearing problems. Denied any sore throat. CARDIOVASCULAR: No orthopnea, PND, no palpitations, no syncope. PULMONARY: No shortness of breath, no cough, no hemoptysis. GASTROINTESTINAL: No diarrhea, no nausea, no vomiting, no abdominal pain. Normoactive bowel sounds. NEUROLOGICAL: No headaches, no weakness, no numbness. HEMATOLOGICAL: Denies any bleeding or petechiae. GENITOURINARY: Denies any burning micturition, frequency, or urgency. MUSCULOSKELETAL/RHEUMATOLOGICAL: Denies any joint pain, swelling, or any muscle pain. ENDOCRINE: Denies any polyuria or polydipsia. Past Medical History Past Medical History: Atrial Fibrillation, Coronary Artery Disease (CAD), CVA/TIA, Diabetes Mellitus, Eye Disorder, GERD/Reflux, GI Bleed, Hearing D isorder / Deafness, Hyperlipidemia, Hypertension, Prostate Disorder, Renal Disease, Sleep Apnea/CPAP/BIPAP Additional Past Medical History / Comment(s): CVA in 2014 and 2018/some residual balance issues, IDDM type II, ulcerative colitis/had J pouch and later ileostomy, chronic diarrhea/dehydration, ileal polyps, recurrent nephrolithiasis, pyelonephritis, BPH, ANGEL occasionally wears Cpap, chronic low iron, bilaterally UPPER [place]/aides, takes eye drops to prevent glaucoma History of Any Multi-Drug Resistant Organisms: None Reported Past Surgical History: Appendectomy, Bowel Resection, Coronary Bypass/CABG, Heart Catheterization, Hernia Repair, Joint Replacement Additional Past Surgical History / Comment(s): 2020 CABG with 4 vessel bypass, colectomy with ileostomy, previous J pouch, colonoscopies, EGD, abdominal hernia/mesh, lithotripsy with R ureteral stent, L partial knee arthroplasty, bilateral cataract removal/lens implants, L eye surgery for detached retina. Past Anesthesia/Blood Transfusion Reactions: No Reported Reaction Additional Past Anesthesia/Blood Transfusion Reaction / Comment(s): PATIENT HAD SURGERY FOR LEFT EYE DETACHED RETINA AND DEVELOPED GAS BUBBLE IN L EYE. HE WAS INSTRUCTED TO NOT RECEIVE NITROUS OXIDE OR RIDE IN A PLANE UNTIL GAS BUBBLE IS GONE. Past Psychological History: Depression Additional Psychological History / Comment(s): Pt resides with his spouse. He is independent. Smoking Status: Former smoker Past Alcohol Use History: None Reported Additional Past Alcohol Use History / Comment(s): Pt started smoking approximately 1971 and quit about 1979 Past Drug Use History: None Reported - Past Family History Mother Family Medical History: Cancer, Diabetes Mellitus Additional Family Medical History / Comment(s): Mother at age 84 from [place] Father Additional Family Medical History / Comment(s): Father is with history of coronary artery disease. Brother(s) Family Medical History: Coronary Artery Disease (CAD), Vascular Disorder Additional Family Medical History / Comment(s): Patient has 4 brothers. Two at the age of 44 from coronary artery disease with history of tobacco use and alcohol dependence. One from aneurysm in the chest. Medications and Allergies Home Medications Medication Instructions Recorded Confirmed Type Finasteride [Proscar] 5 mg PO DAILY 02/06/17 07/01/24 History Tamsulosin [Flomax] 0.4 mg PO HS 02/06/17 07/01/24 History Loratadine [Claritin] 10 mg PO DAILY 08/29/20 07/01/24 History Turmeric Root Extract [Turmeric] 1,000 mg PO DAILY 08/29/20 07/01/24 History Apixaban [Eliquis] 5 mg PO BID 01/12/22 07/01/24 History Ascorbic Acid [Vitamin C] 500 mg PO DAILY 01/12/22 07/01/24 History DULoxetine HCL [Cymbalta] 30 mg PO DAILY 01/15/22 07/01/24 History Cholecalciferol [Vitamin D3 (25 25 mcg PO DAILY 05/06/22 07/01/24 History Mcg = 1000 Iu)] Ferrous Sulfate [Iron (65 MG 325 mg PO HS 05/06/22 07/01/24 History Elemental)] Loperamide [Imodium] 8 mg PO TID 05/06/22 07/01/24 History Atorvastatin [Lipitor] 10 mg PO HS 07/01/24 07/01/24 History Cranberry(Unknown Dose) 1 cap PO HS 07/01/24 07/01/24 History Fesoterodine Fumarate 8 mg PO DAILY 07/01/24 07/01/24 History [Fesoterodine Fumarate ER] Folate 400mg 400 mg PO HS 07/01/24 07/01/24 History Guar Gum 400 2 tab PO BID 07/01/24 07/01/24 History Insulin Glargine,Hum.rec.anlog 35 unit SQ HS 07/01/24 07/01/24 History [Basaglar Kwikpen U-100] Insulin Lispro [humaLOG Kwikpen] 8 unit SQ AC-BID@0800,1200 07/01/24 07/01/24 History Insulin Lispro [humaLOG Kwikpen] 10 unit SQ AC-SUPPER 07/01/24 07/01/24 History Loratadine [Claritin] 10 mg PO DAILY PRN 07/01/24 07/01/24 History Melatonin 5 mg PO HS 07/01/24 07/01/24 History Metoprolol Tartrate [Lopressor] 25 mg PO BID@1800,2100 07/01/24 07/01/24 History Metoprolol Tartrate [Lopressor] 50 mg PO DAILY 07/01/24 07/01/24 History Omeprazole 20 mg PO DAILY 07/01/24 07/01/24 History Pioglitazone [Actos] 15 mg PO MOWEFR 07/01/24 07/01/24 History Turmeric Root Extract [Turmeric 500 mg PO HS 07/01/24 07/01/24 History Curcumin] Allergies Allergy/AdvReac Type Severity Reaction Status Date / Time codeine Allergy Rash/Hives Verified 07/01/24 19:04 morphine Allergy Rash/Hives Verified 07/01/24 19:04 Physical Exam Vitals: Vital Signs Temp Pulse Pulse Pulse Resp BP BP 07/02/24 07:47 80 16 07/02/24 05:27 73 103/59 07/02/24 00:00 85 16 97/60 07/01/24 23:00 92 16 126/74 07/01/24 22:00 92 16 125/67 07/01/24 17:45 98.4 F 94 20 118/85 Pulse Ox 07/02/24 07:47 07/02/24 05:27 07/02/24 00:00 96 07/01/24 23:00 96 07/01/24 22:00 98 07/01/24 17:45 98 Intake and Output 07/01/24 07/02/24 07/02/24 22:59 06:59 14:59 Other: # Bowel Movements 2 Weight 63.503 kg GENERAL: The patient is alert and oriented x3, not in any acute distress. Well developed, well nourished. HEENT: Pupils are round and equally reacting to light. EOMI. No scleral icterus. No conjunctival pallor. Normocephalic, atraumatic. No pharyngeal erythema. No thyromegaly. CARDIOVASCULAR: S1 and S2 present. No murmurs, rubs, or gallops. PULMONARY: Chest is clear to auscultation, no wheezing , no crackles. ABDOMEN: Soft, nontender, nondistended, normoactive bowel sounds. No palpable organomegaly. MUSCULOSKELETAL: No joint swelling or deformity. EXTREMITIES: No cyanosis, clubbing, or pedal edema. NEUROLOGICAL: Gross neurological examination did not reveal any focal deficits. SKIN: No rashes. no petechiae. Results CBC & Chem 7: 07/01/24 18:06 07/01/24 18:06 Labs: Abnormal Lab Results - Last 24 Hours (Table) 07/01/24 07/01/24 07/01/24 Range/Units 18:06 18:06 21:52 WBC 12.3 H (3.8-10.6) k/uL RBC 3.95 L (4.30-5.90) m/uL Hgb 11.7 L (13.0-17.5) gm/dL Hct 36.4 L (39.0-53.0) % Neutrophils # 10.4 H (1.3-7.7) k/uL D-Dimer 0.61 H (<0.60) mg/L FEU Creatinine 1.43 H (0.66-1.25) mg/dL Glucose 173 H (74-99) mg/dL Alkaline Phosphatase 131 H (38-126) U/L Urine Protein (Negative) 07/01/24 Range/Units 22:51 WBC (3.8-10.6) k/uL RBC (4.30-5.90) m/uL Hgb (13.0-17.5) gm/dL Hct (39.0-53.0) % Neutrophils # (1.3-7.7) k/uL D-Dimer (<0.60) mg/L FEU Creatinine (0.66-1.25) mg/dL Glucose (74-99) mg/dL Alkaline Phosphatase (38-126) U/L Urine Protein Trace H (Negative) Thrombosis Risk Factor Assmnt - Choose All That Apply Any of the Below Risk Factors Present?: No Other Risk Factors: Yes Each Risk Factor Represents 3 Points: Age 75 years or older Other congenital or acquired thrombophilia - If yes, enter type in comment: No Thrombosis Risk Factor Assessment Total Risk Factor Score: 3 Thrombosis Risk Factor Assessment Level: Moderate Risk Assessment and Plan Assessment: Chest pain, rule out cardiac causes History of coronary artery disease status post CABG CKD stage III Chronic atrial fibrillation History of CVA Hypertension Hyperlipidemia Diabetes mellitus History of ulcerative colitis status post right ileostomy History of GI bleed Sleep apnea Plan: Continue with serial troponin Continue with aspirin and Eliquis Cardiology consult Check echocardiogram Labs and medication were reviewed.. Continue same treatment. Continue with symptomatic treatment. Resume home medication. Monitor labs and vitals. DVT and GI prophylaxis. Further recommendations as per clinical course of the patient DVT prophylaxis: Eliquis GI Prophylaxis: P Protonix Prognosis is guarded
[2024-07-02] MEDS ORDERED: NON FORMULARY DRUG (Turmeric Root Extract [Turmeric] 500 MG Capsule) PO SCH (09:00)
[2024-07-02 09:19] LABS: Chol/HDL Ratio 3.13 Ratio; LDL Cholesterol,Calculated 16.9 mg/dL (0.0-131.0)
[2024-07-02] MEDS ORDERED: ALPRAZolam 0.25 MG TAB PO PRN (10:21)
[2024-07-02] MEDS: SODIUM CHLORIDE 0.9% 1,000 ML IV SCH (11:17)
[2024-07-02] MEDS: ATORVASTATIN 80 MG TAB PO STA (11:17)
[2024-07-02] MEDS: ASPIRIN 325 MG TAB PO STA (12:48)
--- NOTE | 2024-07-02 13:06 | CA ---
Transthoracic Echo Report Name: Steve Morse Age: 74 Gender: M : 1950 Exam Date: 07/02/2024 09:15 Exam Location: [facility] Ht (in): 72 Wt (lb): 140 Ordering Physician: Roger Felder DO Attending/Referring Phys: Senior Qa Engineer Josefina Ramirez RDCS Procedure CPT: Indications: CP Cardiac Hx: CABG 2017 Technical Quality: Fair Contrast 1: Total Dose (mL): Contrast 2: Total Dose (mL): MEASUREMENTS (Male / Female) Normal Values 2D ECHO LV Diastolic Diameter PLAX 4.4 cm 4.2 - 5.9 / 3.9 - 5.3 cm LV Systolic Diameter PLAX 3.5 cm IVS Diastolic Thickness 1.1 cm 0.6 - 1.0 / 0.6 - 0.9 cm LVPW Diastolic Thickness 1.4 cm 0.6 - 1.0 / 0.6 - 0.9 cm LV Relative Wall Thickness 0.6 RV Internal Dim ED PLAX 3.4 cm LA Systolic Diameter LX 4.3 cm 3.0 - 4.0 / 2.7 - 3.8 cm LV Diastolic Volume MOD BP 88.4 cm??? 67 - 155 / 56 - 104 cm??? LV Systolic Volume MOD BP 41.4 cm??? 22 - 58 / 19 - 49 cm??? LV Ejection Fraction MOD BP 53.1 % >= 55 % LV Cardiac Index MOD BP 2026.4 cm???/min???m??? LV Diastolic Volume MOD 4C 94.1 cm??? LV Systolic Volume MOD 4C 50.0 cm??? LV Ejection Fraction MOD 4C 46.9 % LV Cardiac Index MOD 4C 1907.2 cm???/min???m??? LV Diastolic Length 4C 9.0 cm LV Systolic Length 4C 7.2 cm LV Diastolic Volume MOD 2C 85.4 cm??? LV Systolic Volume MOD 2C 33.2 cm??? LV Ejection Fraction MOD 2C 61.1 % LV Cardiac Index MOD 2C 2251.2 cm???/min???m??? LV Diastolic Length 2C 9.0 cm LV Systolic Length 2C 7.6 cm LA Volume 35.3 cm??? 18 - 58 / 22 - 52 cm??? LA Volume Index 19.8 cm???/m??? 16 - 28 cm???/m??? M-MODE Aortic Root Diameter MM 3.8 cm AV Cusp Separation MM 1.9 cm DOPPLER AV Peak Velocity 162.9 cm/s AV Peak Gradient 10.6 mmHg AI Peak Velocity 339.6 cm/s AI Peak Gradient 46.1 mmHg AI Pressure Half Time 621.0 ms MV Area PHT 4.8 cm??? Mitral E Point Velocity 80.4 cm/s Mitral A Point Velocity 127.5 cm/s Mitral E to A Ratio 0.6 MV Deceleration Time 158.3 ms TR Peak Velocity 221.9 cm/s TR Peak Gradient 19.7 mmHg Right Ventricular Systolic Press 23.9 mmHg FINDINGS Left Ventricle Left ventricular ejection fraction is estimated at 45-50 %. Left ventricular cavity size normal. Mildly increased septal wall thickness. Mildly decreased left ventricular ejection fraction. Right Ventricle Mild right ventricular dilatation. Right ventricular systolic pressure within normal limits. Reduced right ventricular global systolic function. Right Atrium Normal right atrial size. No right atrial thrombus or mass seen. Left Atrium Mildly increased left atrial diameter. No left atrial thrombus or mass present. Mitral Valve Mitral valve thickened. No evidence for mitral valve prolapse. No mitral stenosis. Mild mitral regurgitation. Aortic Valve Trileaflet aortic valve. Thickened aortic valve without stenosis. Mild aortic regurgitation. Tricuspid Valve Structurally normal tricuspid valve. Mild tricuspid regurgitation. Pulmonic Valve Pulmonic valve not well visualized. No pulmonic regurgitation. Pericardium No pericardial effusion. Aorta Mild aortic dilatation at the level of the sinuses of valsalva 38 mm CONCLUSIONS Left ventricular ejection fraction 45-50% Mild increased left ventricular wall thickness RVSP 24 Mild mitral regurgitation Mild aortic regurgitation Mild tricuspid regurgitation Previewed by: Dr. Alek Birch DO (Electronically Signed) Final Date: 02 July 2024 13:05
--- NOTE | 2024-07-02 13:49 | P.CRDCN ---
History of Present Illness Consult date: 07/02/24 Consult reason: chest pain History of present illness: This is a 74-year-old male patient of Dr. 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 We have been asked to evaluate the patient for chest pain. Patient states that for the past 2 to 3 days he has had chest pain in the midsternal and right upper chest with any exertion. Pain also goes to his shoulder and jaw. When he rests the pain improves. He does not develop any chest pain while at rest. He states he has had some shortness of breath with it. No nausea no sweats. He does complain of shakes. Patient states he just has to rest about 2 to 3 minutes and he feels back to normal. He denies any nausea. No blood in his stool or urine. He denies any recent medication changes. He is without pain at this time. Blood pressure 103/59, heart rate 73, pulse ox 96% on room air. Patient is seen today in the emergency center waiting for bed on the observation unit. -EKG: Sinus rhythm with first-degree block 87 bpm, #2 sinus rhythm 91 bpm -Chest x-ray: No acute process -Laboratory studies: WBC 12.3, hemoglobin 1.7, D-dimer 0.61. Sodium 137, potassium 5.0, BUN 19 and creatinine 1.43. Magnesium 1.9. Troponin negative x 3. Influenza, RSV COVID-19 not detected. -Home cardiac medications: Eliquis 5 mg twice daily, atorvastatin 10 mg at bedtime, Lopressor 50 mg in the morning and 25 mg at 6 PM and 9 PM. -Echocardiogram performed 10/23/2023 in the office revealed EF of 45 to 50%, anterior septal and apical lateral hypokinesia mild mitral regurgitation, tricuspid regurgitation, no significant pulmonary hypertension. -CABG ABBOTT to LAD, free portion of ABBOTT from the ABBOTT to the high diagonal, sequential vein graft to the PDA and PLV of the RCA. Ligation of the left atrial appendage with a clip 02/09/2021 -Lexiscan Cardiolite stress test performed in the office on 10/16/2023 revealed anterior apical distal fixed defect with mild hypokinesia, no ischemia probably old [place]. Review Of Systems: At the time of my exam: CONSTITUTIONAL: Denies fever or chills. HEENT: Denies blurred vision, vision changes, or eye pain. Denies hemoptysis CARDIOVASCULAR: Denies chest pain. Denies orthopnea. Denies PND. Denies palpitations RESPIRATORY: Denies shortness of breath. GASTROINTESTINAL: Denies abdominal pain. Denies nausea or vomiting. HEMATOLOGIC: Denies bleeding disorders. GENITOURINARY: Denies any blood in urine. SKIN: Denies puritis. Denies rash. Physical examination: Gen: This is a 74-year-old male in no acute distress VS: reviewed HEENT: Head is atraumatic, normocephalic. Pupils equal, round. Sclerae is anicteric. NECK: Supple. No JVD. LUNGS: Clear to auscultation. No wheezes or rhonchi. No intercostal ret ractions. HEART: Regular rate and rhythm. No murmur. ABDOMEN: Soft No tenderness. EXTREMITIES: No pedal edema. No calf tenderness. NEUROLOGICAL: Patient is awake, alert and oriented x3. Assessment: Chest pain with symptoms typical of unstable angina History of coronary artery disease with prior [place] and CABG Hypertension Hyperlipidemia Diabetes mellitus type 2 Paroxysmal atrial fibrillation on Eliquis Plan: Resume patient's home cardiac medications Schedule patient for cardiac catheterization tomorrow Hold Eliquis Start patient on IV fluid 0.9 normal saline at 75 cc/h N.p.o. after midnight Obtain 2-D echocardiogram and Doppler study to assess cardiac structure and function Further recommendations to follow based upon clinical course Thank you kindly for this consultation. Nurse practitioner note has been reviewed, I agree with documented findings and plan of care. Patient was seen and examined. 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 issues, IDDM type II, ulcerative colitis/had J pouch and later ileostomy, chronic diarrhea/dehydration, ileal polyps, recurrent nephrolithiasis, pyelonephritis, BPH, ANGEL occasionally wears Cpap, chronic low iron, bilaterally [place] DEE-NI'/aides, takes eye drops to prevent glaucoma History of Any Multi-Drug Resistant Organisms: None Reported Past Surgical History: Appendectomy, Bowel Resection, Coronary Bypass/CABG, Heart Catheterization, Hernia Repair, Joint Replacement Additional Past Surgical History / Comment(s): 2020 CABG with 4 vessel bypass, colectomy with ileostomy, previous J pouch, colonoscopies, EGD, abdominal hernia/mesh, lithotripsy with R ureteral stent, L partial knee arthroplasty, bilateral cataract removal/lens implants, L eye surgery for detached retina. Past Anesthesia/Blood Transfusion Reactions: No Reported Reaction Additional Past Anesthesia/Blood Transfusion Reaction / Comment(s): PATIENT HAD SURGERY FOR LEFT EYE DETACHED RETINA AND DEVELOPED GAS BUBBLE IN L EYE. HE WAS INSTRUCTED TO NOT RECEIVE NITROUS OXIDE OR RIDE IN A PLANE UNTIL GAS BUBBLE IS GONE. Past Psychological History: Depression Additional Psychological History / Comment(s): Pt resides with his spouse. He is independent. Smoking Status: Former smoker Past Alcohol Use History: None Reported Additional Past Alcohol Use History / Comment(s): Pt started smoking approximately 1971 and quit about 1979 Past Drug Use History: None Reported - Past Family History Mother Family Medical History: Cancer, Diabetes Mellitus Additional Family Medical History / Comment(s): Mother at age 84 from [place] Father Additional Family Medical History / Comment(s): Father is with history of coronary artery disease. Brother(s) Family Medical History: Coronary Artery Disease (CAD), Vascular Disorder Additional Family Medical History / Comment(s): Patient has 4 brothers. Two at the age of 44 from coronary artery disease with history of tobacco use and alcohol dependence. One from aneurysm in the chest. Medications and Allergies Home Medications Medication Instructions Recorded Confirmed Type Finasteride [Proscar] 5 mg PO DAILY 02/06/17 07/01/24 History Tamsulosin [Flomax] 0.4 mg PO HS 02/06/17 07/01/24 History Loratadine [Claritin] 10 mg PO DAILY 08/29/20 07/01/24 History Turmeric Root Extract [Turmeric] 1,000 mg PO DAILY 08/29/20 07/01/24 History Apixaban [Eliquis] 5 mg PO BID 01/12/22 07/01/24 History Ascorbic Acid [Vitamin C] 500 mg PO DAILY 01/12/22 07/01/24 History DULoxetine HCL [Cymbalta] 30 mg PO DAILY 01/15/22 07/01/24 History Cholecalciferol [Vitamin D3 (25 25 mcg PO DAILY 05/06/22 07/01/24 History Mcg = 1000 Iu)] Ferrous Sulfate [Iron (65 MG 325 mg PO HS 05/06/22 07/01/24 History Elemental)] Loperamide [Imodium] 8 mg PO TID 05/06/22 07/01/24 History Atorvastatin [Lipitor] 10 mg PO HS 07/01/24 07/01/24 History Cranberry(Unknown Dose) 1 cap PO HS 07/01/24 07/01/24 History Fesoterodine Fumarate 8 mg PO DAILY 07/01/24 07/01/24 History [Fesoterodine Fumarate ER] Folate 400mg 400 mg PO HS 07/01/24 07/01/24 History Guar Gum 400 2 tab PO BID 07/01/24 07/01/24 History Insulin Glargine,Hum.rec.anlog 35 unit SQ HS 07/01/24 07/01/24 History [Basaglar Kwikpen U-100] Insulin Lispro [humaLOG Kwikpen] 8 unit SQ AC-BID@0800,1200 07/01/24 07/01/24 History Insulin Lispro [humaLOG Kwikpen] 10 unit SQ AC-SUPPER 07/01/24 07/01/24 History Loratadine [Claritin] 10 mg PO DAILY PRN 07/01/24 07/01/24 History Melatonin 5 mg PO HS 07/01/24 07/01/24 History Metoprolol Tartrate [Lopressor] 25 mg PO BID@1800,2100 07/01/24 07/01/24 History Metoprolol Tartrate [Lopressor] 50 mg PO DAILY 07/01/24 07/01/24 History Omeprazole 20 mg PO DAILY 07/01/24 07/01/24 History Pioglitazone [Actos] 15 mg PO MOWEFR 07/01/24 07/01/24 History Turmeric Root Extract [Turmeric 500 mg PO HS 07/01/24 07/01/24 History Curcumin] Allergies Allergy/AdvReac Type Severity Reaction Status Date / Time codeine Allergy Rash/Hives Verified 07/01/24 19:04 morphine Allergy Rash/Hives Verified 07/01/24 19:04 Physical Exam Vitals: Vital Signs Temp Pulse Pulse Pulse Resp BP BP 07/02/24 07:47 80 16 07/02/24 05:27 73 103/59 07/02/24 00:00 85 16 97/60 07/01/24 23:00 92 16 126/74 07/01/24 22:00 92 16 125/67 07/01/24 17:45 98.4 F 94 20 118/85 Pulse Ox 07/02/24 07:47 07/02/24 05:27 07/02/24 00:00 96 07/01/24 23:00 96 07/01/24 22:00 98 07/01/24 17:45 98 Intake and Output 07/01/24 07/02/24 07/02/24 22:59 06:59 14:59 Other: # Bowel Movements 2 Weight 63.503 kg Results 07/01/24 18:06 07/01/24 18:06 Cardiac Enzymes 07/01/24 07/01/24 07/01/24 Range/Units 18:06 18:06 23:37 AST 26 (17-59) U/L Troponin I <0.012 <0.012 (0.000-0.034) ng/mL 07/02/24 Range/Units 02:42 AST (17-59) U/L Troponin I <0.012 (0.000-0.034) ng/mL Coagulation 07/01/24 Range/Units 18:06 PT 11.5 (10.0-12.5) sec APTT 28.0 (22.0-30.0) sec CBC 07/01/24 Range/Units 18:06 WBC 12.3 H (3.8-10.6) k/uL RBC 3.95 L (4.30-5.90) m/uL Hgb 11.7 L (13.0-17.5) gm/dL Hct 36.4 L (39.0-53.0) % Plt Count 235 (150-450) k/uL Comprehensive Metabolic Panel 07/01/24 Range/Units 18:06 Sodium 137 (137-145) mmol/L Potassium 5.0 (3.5-5.1) mmol/L Chloride 102 (98-107) mmol/L Carbon Dioxide 22 (22-30) mmol/L BUN 19 (9-20) mg/dL Creatinine 1.43 H (0.66-1.25) mg/dL Glucose 173 H (74-99) mg/dL Calcium 9.4 (8.4-10.2) mg/dL AST 26 (17-59) U/L ALT 17 (4-49) U/L Alkaline Phosphatase 131 H (38-126) U/L Total Protein 7.2 (6.3-8.2) g/dL Albumin 3.9 (3.5-5.0) g/dL Current Medications Generic Name Dose Route Start Last Admin Trade Name Freq PRN Reason Stop Dose Admin Apixaban 5 mg 07/01/24 21:00 07/02/24 08:04 Apixaban 5 Mg Tab PO 5 mg BID KRISTIN Administration Protocol Ascorbic Acid 500 mg 07/02/24 09:00 07/02/24 08:05 Ascorbic Acid 500 Mg Tab PO 500 mg DAILY KRISTIN Administration Aspirin 325 mg 07/02/24 09:00 07/02/24 08:05 Aspirin 325 Mg Tab PO 325 mg DAILY KRISTIN Administration Atorvastatin Calcium 10 mg 07/01/24 21:00 07/01/24 22:11 Atorvastatin 10 Mg Tab PO 10 mg HS [facility] Administration Cholecalciferol 25 mcg 07/02/24 09:00 07/02/24 08:05 Cholecalciferol 25 Mcg (1000 Iu) Tablet PO 25 mcg DAILY KRISTIN Administration Duloxetine HCl 30 mg 07/02/24 09:00 07/02/24 08:04 Duloxetine Hcl 30 Mg Capsule.Dr PO 30 mg DAILY KRISTIN Administration Ferrous Sulfate 325 mg 07/01/24 21:00 07/01/24 22:11 Ferrous Sulfate 325 Mg Tab PO 325 mg HS KRISTIN Administration Finasteride 5 mg 07/02/24 09:00 07/02/24 08:03 Finasteride 5 Mg Tab PO 5 mg DAILY KRISTIN Administration Folic Acid 1 mg 07/01/24 21:00 07/01/24 22:11 Folic Acid 1 Mg Tab PO 1 mg HS KRISTIN Administration Insulin Aspart 10 unit 07/02/24 17:30 Insulin Aspart (Novolog) 100 Unit/Ml Vial SQ AC-SUPPER KRISTIN Insulin Aspart 8 unit 07/02/24 08:00 07/02/24 07:54 Insulin Aspart (Novolog) 100 Unit/Ml Vial SQ Not Given AC-BID@0800,1200 [facility] Insulin Detemir 35 unit 07/01/24 21:00 07/01/24 22:03 Insulin Detemir (Levemir) 100 Unit/Ml Syr SQ Not Given HS [facility] Loratadine 10 mg 07/02/24 09:00 07/02/24 08:04 Loratadine 10 Mg Tab PO 10 mg DAILY [facility] Administration Melatonin 5 mg 07/01/24 21:00 07/01/24 22:11 Melatonin 5 Mg Tablet PO 5 mg HS [facility] Administration Metoprolol Tartrate 50 mg 07/02/24 09:00 07/02/24 07:56 Metoprolol Tartrate 50 Mg Tab PO Not Given DAILY [facility] Metoprolol Tartrate 25 mg 07/01/24 21:00 07/01/24 22:11 Metoprolol Tartrate 25 Mg Tab PO 25 mg BID@1800,2100 [facility] Administration Nitroglycerin 0.4 mg 07/01/24 20:21 Nitroglycerin Sl Tabs 0.4 Mg Tab SUBLINGUAL Q5M PRN Chest Pain Nitroglycerin 1 inch 07/02/24 00:00 07/02/24 07:18 Nitroglycerin Oint 1 Inch/Gm Packet TOPICAL Not Given Q6HR [facility] Non-Formulary Medication 8 mg 07/02/24 09:00 07/02/24 08:06 Fesoterodine Fumarate [Fesoterodine Fumarate Er] PO Not Given DAILY [facility] Pantoprazole Sodium 40 mg 07/02/24 07:30 07/02/24 08:05 Pantoprazole 40 Mg Tablet PO 40 mg AC-BRKFST [facility] Administration Pioglitazone HCl 15 mg 07/03/24 09:00 Pioglitazone 15 Mg Tab PO MOWEFR [facility] Tamsulosin HCl 0.4 mg 07/01/24 21:00 07/01/24 22:11 Tamsulosin 0.4 Mg Cap.Er.24h PO 0.4 mg HS [facility] Administration Intake and Output 07/01/24 07/02/24 07/02/24 22:59 06:59 14:59 Other: # Bowel Movements 2 Weight 63.503 kg 07/01/24 18:06 07/01/24 18:06
[2024-07-02] MEDS: NITROGLYCERIN SL TABS 0.4 MG TAB SUBLINGUAL PRN (15:15)
[2024-07-03] MEDS: LOPERAMIDE 2 MG CAP PO PRN (01:02)
[2024-07-03] MEDS ORDERED: HEPARIN SODIUM,PORCINE (1 ML) 2,500 UNIT in SODIUM CHLORIDE 0.9% 250 ML IRRIGATION PRN (07:00)
[2024-07-03] MEDS ORDERED: HEPARIN SODIUM,PORCINE 10,000 UNIT in SODIUM CHLORIDE 0.9% 1,000 ML IRRIGATION PRN (07:00)
[2024-07-03 09:02] LABS: African American GFR (CKD) 72 (>60 ml/min/1.73 sqM); Anion Gap 10 mmol/L; Blood Urea Nitrogen 15 mg/dL (9-20); Calcium 8.9 mg/dL (8.4-10.2); Carbon Dioxide 23 mmol/L (22-30); Chloride 104 mmol/L (98-107); Glucose 99 mg/dL (74-99); Non-African American GFR(CKD) 63 (>60 ml/min/1.73 sqM); Potassium 4.3 mmol/L (3.5-5.1); Sodium 137 mmol/L (137-145)
[2024-07-03] MEDS: IV FLUID CONTINUATION 200 ML IV ONE (10:03)
--- NOTE | 2024-07-03 10:03 | P.PN ---
Subjective Progress Note Date: 07/03/24 Consult reason: chest pain History of present illness: This is a 74-year-old male patient of Dr. 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 We have been asked to evaluate the patient for chest pain. Patient states that for the past 2 to 3 days he has had chest pain in the midsternal and right upper chest with any exertion. Pain also goes to his shoulder and jaw. When he rests the pain improves. He does not develop any chest pain while at rest. He states he has had some shortness of breath with it. No nausea no sweats. He does complain of shakes. Patient states he just has to rest about 2 to 3 minutes and he feels back to normal. He denies any nausea. No blood in his stool or urine. He denies any recent medication changes. He is without pain at this time. Blood pressure 103/59, heart rate 73, pulse ox 96% on room air. Patient is seen today in the emergency center waiting for bed on the observation unit. -EKG: Sinus rhythm with first-degree block 87 bpm, #2 sinus rhythm 91 bpm -Chest x-ray: No acute process -Laboratory studies: WBC 12.3, hemoglobin 1.7, D-dimer 0.61. Sodium 137, potassium 5.0, BUN 19 and creatinine 1.43. Magnesium 1.9. Troponin negative x 3. Influenza, RSV COVID-19 not detected. -Home cardiac medications: Eliquis 5 mg twice daily, atorvastatin 10 mg at bedtime, Lopressor 50 mg in the morning and 25 mg at 6 PM and 9 PM. -Echocardiogram performed 10/23/2023 in the office revealed EF of 45 to 50%, anterior septal and apical lateral hypokinesia mild mitral regurgitation, tricuspid regurgitation, no significant pulmonary hypertension. -CABG ABBOTT to LAD, free portion of ABBOTT from the ABBOTT to the high diagonal, sequential vein graft to the PDA and PLV of the RCA. Ligation of the left atrial appendage with a clip 02/09/2021 -Lexiscan Cardiolite stress test performed in the office on 10/16/2023 revealed anterior apical distal fixed defect with mild hypokinesia, no ischemia probably old LA. 07/03 Patient is seen today on the observation unit. He states he had some mild chest pain this morning when he woke up. It was at rest versus activity as it normally would happen with activity. He states he had chest pain last evening and Nitropaste seem to help. He is scheduled for cardiac catheterization this morning with Dr. Gaitan. Yesterday's evening dose of Eliquis as well as this morning's dose of Eliquis have been held. Blood pressure 140/65, heart rate 83, pulse ox 99% on room air. Repeat blood work reveals sodium 137, potassium 4.3, UN 15 creatinine 0.14. Triglycerides 174, cholesterol 76, LDL 16, HDL 24. Echocardiogram reveals EF of 45 to 50%, mild increased left ventricular wall thickness. RVSP 24. Mild mitral, aortic and tricuspid regurgitation. Physical examination: Gen: This is a 74-year-old male in no acute distress VS: reviewed HEENT: Head is atraumatic, normocephalic. Pupils equal, round. Sclerae is anicteric. NECK: Supple. No JVD. LUNGS: Clear to auscultation. No wheezes or rhonchi. No intercostal retractio ns. HEART: Regular rate and rhythm. No murmur. ABDOMEN: Soft No tenderness. EXTREMITIES: No pedal edema. No calf tenderness. NEUROLOGICAL: Patient is awake, alert and oriented x3. Assessment: Chest pain with symptoms typical of unstable angina History of coronary artery disease with prior [place] and CABG Hypertension Hyperlipidemia Diabetes mellitus type 2 Paroxysmal atrial fibrillation on Eliquis Plan: Continue patient's home cardiac medications Schedule patient for cardiac catheterization this morning with Dr. Gaitan Hold Eliquis until catheterization is complete Continue patient on IV fluid 0.9 normal saline at 75 cc/h N.p.o. Further recommendations to follow based upon clinical course Nurse practitioner note has been reviewed, I agree with documented findings and plan of care. Patient was seen and examined. Objective - Vital Signs Vital signs: Vital Signs Temp 98.3 F 07/03/24 07:35 Pulse 83 07/03/24 07:35 Resp 16 07/03/24 07:35 BP 140/65 07/03/24 07:35 Pulse Ox 99 07/03/24 07:35 FiO2 Intake & Output 07/02/24 07/03/24 07/03/24 18:59 06:59 18:59 Other: # Voids 2 - Labs CBC & Chem 7: 07/01/24 18:06 07/03/24 08:16 Labs: Abnormal Lab Results - Last 24 Hours (Table) 07/02/24 Range/Units 02:42 Triglycerides 174.00 H (0.00-149.00) mg/dL HDL Cholesterol 24.30 L (40.00-60.00) mg/dL Microbiology - Last 24 Hours (Table) 07/01/24 21:46 Blood Culture - Preliminary Blood
[2024-07-03] MEDS: MIDAZOLAM 2 MG/2 ML VIAL IVP ONE (10:31)
[2024-07-03] MEDS: LIDOCAINE 1% INJ 10MG/ML (20 ML MDV) SQ ONE (10:35)
[2024-07-03] MEDS: VERAPAMIL SYRINGE (5 MG/10 ML) INTRAARTER ONE (10:47)
[2024-07-03] MEDS: HYDROmorphone 0.5 MG/0.5 ML SYRINGE IVP ONE (11:06)
[2024-07-03] MEDS: IOPAMIDOL-370 100ML BTL INJ ONE ×3 (11:12→11:35)
[2024-07-03] MEDS: PIOGLITAZONE 15 MG TAB PO SCH (15:52)
[2024-07-03] MEDS: HEPARIN SOD,PORK IN 0.45% NACL 25,000 UNIT in 0.45% NACL 1 250ML.BAG IV SCH (16:33)
[2024-07-03] MEDS: NITROGLYCERIN OINT 1 INCH/GM PACKET TOPICAL SCH (17:21)
[2024-07-03] MEDS: METOPROLOL TARTRATE 50 MG TAB PO SCH (19:52)
[2024-07-03] MEDS: ATORVASTATIN 40 MG TAB PO SCH (19:52)
[2024-07-03] MEDS: RANOLAZINE 500 MG TAB.ER.12H PO SCH (19:53)
[2024-07-03] MEDS ORDERED: APIXABAN 2.5 MG TABLET PO SCH (21:00)
--- NOTE | 2024-07-03 23:32 | CC ---
CARDIAC CATHETERIZATION REPORT PROCEDURES PERFORMED: 1. Coronary angiography and selective injection of bypass grafts. 2. Aortography. PERFORMED BY: Dr. Israel Gaitan. ASSISTED BY: Dr. Birch. ANESTHESIA: Moderate conscious sedation time was 66 minutes. The patient was administered Versed and also Dilaudid. Oxygen saturation, hemodynamics, and EKG were monitored closely. CLINICAL INFORMATION: Mr. Steve Morse is a 74-year-old gentleman with a known history of CAD with prior bypass surgery and myocardial infarction. He has hypertension, hyperlipidemia, type 2 diabetes with chronic kidney disease. He has ulcerative colitis with ileostomy bag. He came into the hospital with chest pain suggestive of angina with a negative troponin and unremarkable EKG. Because of persistent chest pain, he was advised cardiac catheterization after due discussion. Eliquis was held for 24 hours. The patient's aortocoronary bypass surgery was performed on February 09, 2021. He had a ABBOTT to LAD and from the ABBOTT, a portion of ABBOTT was used to anastomose into the high diagonal branch from the ABBOTT. A sequential vein graft was used for PDA and PLV branches of RCA. The circumflex was nondominant and was mostly in the AV groove and therefore was not grafted. PROCEDURE NOTE: Under strict aseptic precautions and local anesthesia with the help of ultrasound, access into the left radial artery was achieved. A 6-Welsh introducer was placed. I used a Surekha catheter under fluoroscopic guidance, I performed selective injection of the left internal mammary artery. I was able to visualize the ABBOTT graft to LAD as well as the portion of ABBOTT that was attached to the high diagonal, which appears to be subtotally occluded. I then used a right Latoya catheter and performed selective injection of the right coronary artery. With a multipurpose catheter, we were unable to cannulate the vein graft to the RCA. A 3.5 left Latoya guide catheter was used for selective injection of the left coronary artery. The patient received nearly 140 mL of dye. I then performed an aortogram in the [place] projection to look for the vein graft to the RCA, which was not visualized on selective attempts. Following this, the sheath was taken out and TR band applied as per protocol with saturation of the fingers of the left hand of 97%. The patient tolerated the procedure well without complications. CORONARY ANGIOGRAPHY FINDINGS: Right coronary artery: Large dominant vessel, very tortuous distally. The vessel bifurcates into a larger PLV, smaller PDA. PDA is totally occluded. PLV is diffusely diseased with decent flow. I cannot see any attachment of a vein graft to the PLV. PDA is totally occluded. PDA was relatively smaller. Left main coronary artery: This vessel has 80% distal lesion. It bifurcates into LAD and circumflex. Left anterior descending coronary artery: This gives off a small high diagonal, then there is a large high diagonal, then the LAD continues, but is totally occluded in the midportion with some competitive flow. There is diffuse disease in the opacified branches of the LAD, but the 2nd high diagonal which was probably grafted has a significant disease at its origin as well as the LAD itself is highly diseased from the left main onwards. This may be a complex percutaneous intervention if performed into the diagonal branch. The LAD itself distally has some competitive flow. Left internal mammary artery graft to LAD: This graft was opacified and is widely patent with good flow into the LAD, opacifies all the way to the apex. A portion of a free ABBOTT was used to connect the ABBOTT graft to the diagonal. This is subtotally occluded with limited antegrade flow. Saphenous vein, sequential graft to PDA and PLV, branches of RCA was not visualized. Aortogram: Aortogram performed in [place] projection revealed a late flow on to the right side, probably in the distribution of the RCA graft. However, it was a late filling, not well visualized. FINAL IMPRESSION: This patient has a right-dominant system with diffuse disease of the PLV, total occlusion of the PDA. Left main has 80% stenosis with diffuse disease in the opacified branches and total occlusion of the LAD in the midportion. Circumflex is highly diseased mostly in the groove branch, not much antegrade flow in the circumflex vessel. The ABBOTT to LAD is patent, but the attachment to the high diagonal is subtotally occluded. The vein graft to the 2 branches of RCA was not visualized. RECOMMENDATIONS: For now, we will pursue medical therapy and I will discuss the option of performing a percutaneous intervention of the left main LAD into the diagonal branch. This is a relatively high-risk procedure, but we will wait for 48 hours and recheck the creatinine. The patient will be hydrated. I will add Ranexa. Continue beta oscar at increased dose and hold Eliquis for the time being. I discussed my thoughts in detail with the patient, , and daughter. I will discuss further with Dr. Birch regarding the next intervention, which is relatively a high-risk procedure. MMVALERIO / BIBI: [id number] / MARGO
[2024-07-04] MEDS: HEPARIN SODIUM 1,000 UN/ML (10ML VL) IV PRN (00:22)
--- NOTE | 2024-07-04 05:09 | P.PN ---
Subjective This is a pleasant 74 years old male with past medical history of multiple medical problems as below including history of coronary artery disease status post CABG, diabetes mellitus. A-fib on Eliquis Patient also was not on aspirin at home but added here in the hospital. He presents initially because of chest pain and jaw pain which are separate. Chest pain is about for 3 days 12/19. In the middle of the chest radiating to the left shoulder increased with activity and decreased with sitting associated with mild jaw pain on the right side No dyspnea or coughing. No specific GI or symptoms no fever or chills He denies smoking or illicit drugs and he used alcohol occasionally No recent fall His iv rn is Dr. Gaitan Is afebrile and blood pressure is stable Mild leukocytosis at 12.3 and hemoglobin 11.7 well creatinine at baseline at 1.4 with baseline 1.1-1.5 D-dimer was elevated at 0.61 with a reference 0.60, corrected for age it will be within the reference range not elevated, this makes acute pulm embolism very unlikely. EKG showing sinus rhythm at [address]-T changes Chest x-ray showing right side rib deformity which could be secondary to trauma. No acute process. Echocardiogram is pending Patient continued on Eliquis 5 mg and aspirin 325 mg 07/03 Patient seen and examined at bedside, he just came from cardiac cath and is still sleepy from the procedure affect. No other new complaint reported no at bedside. Echocardiogram with ejection fraction 45 to 50% This second high diagonal branch of LAD is with significant disease and this may be a complex percutaneous intervention, as well as the LAD itself from its origin from the left main coronary artery. Within the stent and this diseased artery is high risk procedure, therefore iv rn preferred to wait 48 hours and then going to repeat the cardiac cath again. In the meantime Eliquis remains on hold per iv rn Creatinine today is improved to 1.4 down to 1.1 Patient was placed on IV fluid Recheck creatinine in the morning Review of systems CONSTITUTIONAL: No fever, no malaise, no fatigue. PULMONARY: No shortness of breath, no cough, no hemoptysis. GASTROINTESTINAL: No diarrhea, no nausea, no vomiting, no abdominal pain. Normoactive bowel sounds. NEUROLOGICAL: No headaches, no weakness, no numbness. HEMATOLOGICAL: Denies any bleeding or petechiae. GENITOURINARY: Denies any burning micturition, frequency, or urgency. Active Medications Generic Name Dose Route Start Last Admin Trade Name Freq PRN Reason Stop Dose Admin Alprazolam 0.25 mg 07/02/24 10:21 Alprazolam 0.25 Mg Tab PO Q6HR PRN Mild Anxiety Alprazolam 0.5 mg 07/02/24 10:21 Alprazolam 0.5 Mg Tab PO Q6HR PRN Moderate Anxiety Ascorbic Acid 500 mg 07/02/24 09:00 07/03/24 07:59 Ascorbic Acid 500 Mg Tab PO 500 mg DAILY KRISTIN Administration Aspirin 81 mg 07/04/24 09:00 Aspirin 81 Mg PO DAILY KRISTIN Atorvastatin Calcium 40 mg 07/03/24 21:00 07/03/24 19:52 Atorvastatin 40 Mg Tab PO 40 mg HS [facility] Administration Cholecalciferol 25 mcg 07/02/24 09:00 07/03/24 07:59 Cholecalciferol 25 Mcg (1000 Iu) Tablet PO 25 mcg DAILY KRISTIN Administration Clopidogrel Bisulfate 75 mg 07/04/24 09:00 Clopidogrel 75 Mg Tab PO DAILY KRISTIN Duloxetine HCl 30 mg 07/02/24 09:00 07/03/24 17:49 Duloxetine Hcl 30 Mg Capsule.Dr PO 30 mg DAILY KRISTIN Administration Ferrous Sulfate 325 mg 07/01/24 21:00 07/03/24 19:53 Ferrous Sulfate 325 Mg Tab PO 325 mg HS [facility] Administration Finasteride 5 mg 07/02/24 09:00 07/02/24 08:03 Finasteride 5 Mg Tab PO 5 mg DAILY KRISTIN Administration Folic Acid 1 mg 07/01/24 21:00 07/03/24 19:52 Folic Acid 1 Mg Tab PO 1 mg HS [facility] Administration Heparin Sodium (Porcine) 0 unit 07/03/24 13:44 07/04/24 00:22 Heparin Sodium 1,000 Un/Ml (10ml Vl) IV 3,175.15 unit PER PROTOCOL PRN Administration Low PTT Protocol Sodium Chloride 1,000 mls @ 75 mls/hr 07/02/24 10:30 07/04/24 02:59 Saline 0.9% IV Not Given .[id number] [facility] Heparin Sodium/Sodium Chloride 250 mls @ 7.62 mls/hr 07/03/24 13:45 07/04/24 00:21 25,000 unit/ Sodium Chloride IV 15 units/kg/hr .Q24H KRISTIN 9.525 mls/hr Titration Protocol 12 UNITS/KG/HR Insulin Aspart 10 unit 07/02/24 17:30 07/03/24 17:48 Insulin Aspart (Novolog) 100 Unit/Ml Vial SQ 10 unit AC-SUPPER KRISTIN Administration Insulin Aspart 8 unit 07/02/24 08:00 07/03/24 15:54 Insulin Aspart (Novolog) 100 Unit/Ml Vial SQ Not Given AC-BID@0800,1200 [facility] Insulin Detemir 35 unit 07/01/24 21:00 07/03/24 20:17 Insulin Detemir (Levemir) 100 Unit/Ml Syr SQ 35 unit HS [facility] Administration Loperamide HCl 4 mg 07/02/24 23:17 07/03/24 17:48 Loperamide 2 Mg Cap PO 4 mg Q6H PRN Administration GI Upset Loratadine 10 mg 07/02/24 09:00 07/03/24 07:59 Loratadine 10 Mg Tab PO 10 mg DAILY [facility] Administration Melatonin 5 mg 07/01/24 21:00 07/03/24 19:52 Melatonin 5 Mg Tablet PO 5 mg HS [facility] Administration Metoprolol Tartrate 50 mg 07/03/24 21:00 07/03/24 19:52 Metoprolol Tartrate 50 Mg Tab PO 50 mg BID [facility] Administration Nitroglycerin 0.4 mg 07/02/24 10:21 07/02/24 15:15 Nitroglycerin Sl Tabs 0.4 Mg Tab SUBLINGUAL 0.4 mg Q5M PRN Administration Chest Pain Nitroglycerin 1 inch 07/03/24 12:00 07/04/24 00:00 Nitroglycerin Oint 1 Inch/Gm Packet TOPICAL 1 inch Q6HR [facility] Administration Non-Formulary Medication 8 mg 07/02/24 09:00 07/03/24 10:08 Fesoterodine Fumarate [Fesoterodine Fumarate Er] PO Not Given DAILY [facility] Pantoprazole Sodium 40 mg 07/02/24 07:30 07/03/24 05:24 Pantoprazole 40 Mg Tablet PO Not Given AC-BRKFST [facility] Pioglitazone HCl 15 mg 07/03/24 09:00 07/03/24 15:52 Pioglitazone 15 Mg Tab PO Not Given MOWEFR [facility] Ranolazine 500 mg 07/03/24 21:00 07/03/24 19:53 Ranolazine 500 Mg Tab.Er.12h PO 500 mg Q12HR KRISTIN Administration Tamsulosin HCl 0.4 mg 07/01/24 21:00 07/03/24 19:52 Tamsulosin 0.4 Mg Cap.Er.24h PO 0.4 mg HS KRISTIN Administration Objective - Vital Signs Vital signs: Vital Signs Temp 97.3 F L 07/03/24 11:56 Pulse 69 07/03/24 15:55 Resp 16 07/03/24 11:56 BP 114/61 07/03/24 15:55 Pulse Ox 98 07/03/24 16:00 FiO2 Intake & Output 07/03/24 07/03/24 07/04/24 06:59 18:59 06:59 Intake Total 150 Balance 150 Intake: IV 150 Other: # Voids 2 2 - Exam GENERAL: The patient is alert and oriented x3, not in any acute distress. Well developed, well nourished. HEENT: Pupils are round and equally reacting to light. EOMI. No scleral icterus. No conjunctival pallor. Normocephalic, atraumatic. No pharyngeal erythema. No thyromegaly. CARDIOVASCULAR: S1 and S2 present. No murmurs, rubs, or gallops. PULMONARY: Chest is clear to auscultation, no wheezing , no crackles. ABDOMEN: Soft, nontender, nondistended, normoactive bowel sounds. No palpable or ganomegaly. MUSCULOSKELETAL: No joint swelling or deformity. EXTREMITIES: No cyanosis, clubbing, or pedal edema. NEUROLOGICAL: Gross neurological examination did not reveal any focal deficits. SKIN: No rashes. no petechiae. - Labs CBC & Chem 7: 07/01/24 18:06 07/03/24 08:16 Labs: Microbiology - Last 24 Hours (Table) 07/01/24 22:51 Urine Culture - Final Urine,Voided 07/01/24 21:46 Blood Culture - Preliminary Blood Assessment and Plan Assessment: -Chest pain, status postcardiac cath on 07/03:This second high diagonal branch of LAD is with significant disease and this may be a complex percutaneous intervention, as well as the LAD itself from its origin from the left main coronary artery. -History of coronary artery disease status post CABG -CKD stage III -Chronic atrial fibrillation -History of CVA -Hypertension -Hyperlipidemia -Diabetes mellitus -History of ulcerative colitis status post right ileostomy -History of GI bleed -Sleep apnea Plan: Cardiology team are planning for repeat cardiac cath Restart IV fluid and monitor creatinine, currently creatinine is improving Hold Eliquis per iv rn Continue with aspirin Cardiology consult echocardiogram as reviewed Labs and medication were reviewed.. Continue same treatment. Continue with symptomatic treatment. Resume home medication. Monitor labs and vitals. DVT and GI prophylaxis. Further recommendations as per clinical course of the patient DVT prophylaxis: Eliquis, currently on hold, therefore will place the patient on subcutaneous heparin GI Prophylaxis: Protonix Prognosis is guarded
[2024-07-04 06:49] LABS: African American GFR (CKD) 73 (>60 ml/min/1.73 sqM); Anion Gap 11 mmol/L; Blood Urea Nitrogen 12 mg/dL (9-20); Calcium 9.4 mg/dL (8.4-10.2); Carbon Dioxide 21 mmol/L (22-30); Chloride 105 mmol/L (98-107); Glucose 143 mg/dL (74-99); Non-African American GFR(CKD) 63 (>60 ml/min/1.73 sqM); Potassium 4.5 mmol/L (3.5-5.1); Sodium 137 mmol/L (137-145)
[2024-07-04] MEDS: CLOPIDOGREL 75 MG TAB PO SCH (08:10)
[2024-07-04] MEDS: ASPIRIN 81 MG PO SCH (08:10)
[2024-07-04 09:19] LABS: Basophils # (A) 0.03 X 10*3/uL (0.00-0.10); Basophils % (A) 0.3 %; Eosinophils # (A) 0.13 X 10*3/uL (0.04-0.35); Eosinophils % (A) 1.4 %; HCT 35.4 % (39.6-50.0); HGB 10.7 g/dL (13.0-17.0); Lymphocytes # (A) 0.97 X 10*3/uL (0.90-5.00); Lymphocytes % (A) 10.3 %; MCH 28.6 pg (27.0-32.0); MCHC 30.2 g/dL (32.0-37.0); MCV 94.7 FL (80.0-97.0); Mean Platelet Volume 12.6 FL (9.5-12.2); Monocytes # (A) 0.68 X 10*3/uL (0.20-1.00); Monocytes % (A) 7.2 %; NRBC Per 100 WBC 0 X 10*3/uL (0.00-0.01); Neutrophils # (A) 7.54 X 10*3/uL (1.80-7.70); Neutrophils % (A) 80.2 %; Platelet Count 215 X 10*3/uL (140-440); RBC 3.74 X 10*6/uL (4.40-5.60); RDW 14.4 % (11.5-14.5); WBC 9.41 X 10*3/uL (4.50-10.00)
[2024-07-04] MEDS: ALPRAZolam 0.5 MG TAB PO PRN (09:37)
--- NOTE | 2024-07-04 10:21 | P.PN ---
Subjective Progress Note Date: 07/04/24 Consult reason: chest pain History of present illness: This is a 74-year-old male patient of Dr. DEDE Gaitan with past medical history of paroxysmal atrial fibrillation, CAD with prior DC and bypass surgery, hypertension, hyperlipidemia, diabetes mellitus type 2, ileostomy secondary to colitis. We have been asked to evaluate the patient for chest pain. Patient states that for the past 2 to 3 days he has had chest pain in the midsternal and right upper chest with any exertion. Pain also goes to his shoulder and jaw. When he rests the pain improves. He does not develop any chest pain while at rest. He states he has had some shortness of breath with it. No nausea no sweats. He does complain of shakes. Patient states he just has to rest about 2 to 3 minutes and he feels back to normal. He denies any nausea. No blood in his stool or urine. He denies any recent medication changes. He is without pain at this time. Blood pressure 103/59, heart rate 73, pulse ox 96% on room air. Patient is seen today in the emergency center waiting for bed on the observation unit. -EKG: Sinus rhythm with first-degree block 87 bpm, #2 sinus rhythm 91 bpm -Chest x-ray: No acute process -Laboratory studies: WBC 12.3, hemoglobin 1.7, D-dimer 0.61. Sodium 137, potassium 5.0, BUN 19 and creatinine 1.43. Magnesium 1.9. Troponin negative x 3. Influenza, RSV COVID-19 not detected. -Home cardiac medications: Eliquis 5 mg twice daily, atorvastatin 10 mg at bedtime, Lopressor 50 mg in the morning and 25 mg at 6 PM and 9 PM. -Echocardiogram performed 10/23/2023 in the office revealed EF of 45 to 50%, anterior septal and apical lateral hypokinesia mild mitral regurgitation, tricuspid regurgitation, no significant pulmonary hypertension. -CABG ABBOTT to LAD, free portion of ABBOTT from the ABBOTT to the high diagonal, sequential vein graft to the PDA and PLV of the RCA. Ligation of the left atrial appendage with a clip 02/09/2021 -Lexiscan Cardiolite stress test performed in the office on 10/16/2023 revealed anterior apical distal fixed defect with mild hypokinesia, no ischemia probably old DC. 07/03 Patient is seen today on the observation unit. He states he had some mild chest pain this morning when he woke up. It was at rest versus activity as it normally would happen with activity. He states he had chest pain last evening and Nitropaste seem to help. He is scheduled for cardiac catheterization this morning with Dr. Gaitan. Yesterday's evening dose of Eliquis as well as this morning's dose of Eliquis have been held. Blood pressure 140/65, heart rate 83, pulse ox 99% on room air. Repeat blood work reveals sodium 137, potassium 4.3, UN 15 creatinine 0.14. Triglycerides 174, cholesterol 76, LDL 16, HDL 24. Echocardiogram reveals EF of 45 to 50%, mild increased left ventricular wall thickness. RVSP 24. Mild mitral, aortic and tricuspid regurgitation. 07/04 Patient seen and examined. Yesterday he underwent cardiac catheterization which revealed right dominant system with diffuse disease of the PLV, total occlusion of the PDA. Left main has 80% stenosis with diffuse disease in the opacified branches and total occlusion of the LAD in the midportion. Circumflex highly disease mostly in the groove branch, not much antegrade flow in the circumflex vessel. The ABBOTT to LAD is patent but the attachment to the high diagonal is subtotally occluded. The vein graft to the 2 branches of the RCA was not visualized. Plan for now is medical management and the option of performing percutaneous intervention of the left main LAD into the diagonal branch but known to be relatively high risk procedure. Plan is to wait 48 hours and recheck creatinine, hydrate patient, start Ranexa and continue increased beta- oscar. Eliquis will remain on hold. Patient is still having episodes of chest pain with exertion. Blood pressure 117/76, heart rate 73, pulse ox 99% on room air. Repeat blood work reveals hemoglobin 10.7. BUN 12 and creatinine 1.13. Physical examination: Gen: This is a 74-year-old male in no acute distress VS: reviewed HEENT: Head is atraumatic, normocephalic. Pupils equal, round. Sclerae is anicteric. NECK: Supple. No JVD. LUNGS: Clear to auscultation. No wheezes or rhonchi. No intercostal retractions . HEART: Regular rate and rhythm. No murmur. ABDOMEN: Soft No tenderness. EXTREMITIES: No pedal edema. No calf tenderness. NEUROLOGICAL: Patient is awake, alert and oriented x3. Assessment: Chest pain with symptoms typical of unstable angina History of coronary artery disease with prior DC and CABG Hypertension Hyperlipidemia Diabetes mellitus type 2 Paroxysmal atrial fibrillation on Eliquis Plan: Continue patient's home cardiac medications Continue higher dose of beta-oscar Continue heparin drip Hold Eliquis until determination for PCI finalized Continue patient on IV fluid 0.9 normal saline at 75 cc/h Start patient on nitroglycerin drip Transfer patient to 3 . Repeat Troponin Monitor chest pain closely and if patient continues to have episodes of chest pain with exertion, PCI will be considered for today. Otherwise, if patient's chest pain is controlled with a nitroglycerin drip, plan for PCI tomorrow with Dr. Birch. Further recommendations to follow based upon clinical course Nurse practitioner note has been reviewed, I agree with documented findings and plan of care. Patient was seen and examined. Objective - Vital Signs Vital signs: Vital Signs Temp 97.9 F 07/04/24 07:49 Pulse 73 07/04/24 07:49 Resp 14 07/04/24 07:49 BP 117/76 07/04/24 07:49 Pulse Ox 99 07/04/24 07:49 FiO2 Intake & Output 07/03/24 07/04/24 07/04/24 18:59 06:59 18:59 Intake Total 150 59.436 Balance 150 59.436 Intake: IV 150 Intake, IV Titration 59.436 Amount Heparin Sod,Pork in 0.45% 59.436 NaCl 25,000 unit In 0.45 % NaCl 1 250ml.bag @ 12 UNITS/KG/HR 7.62 mls/hr IV .Q24H KRISTIN Rx#: [id number] Other: # Voids 2 2 - Labs CBC & Chem 7: 07/04/24 05:58 07/04/24 05:58 Labs: Abnormal Lab Results - Last 24 Hours (Table) 07/03/24 07/04/24 07/04/24 Range/Units 23:10 05:54 05:58 RBC 3.74 L (4.40-5.60) X 10*6/uL Hgb 10.7 L (13.0-17.0) g/dL Hct 35.4 L (39.6-50.0) % MCHC 30.2 L (32.0-37.0) g/dL MPV 12.6 H (9.5-12.2) FL Immature Gran # 0.06 H (0.00-0.04) X 10*3/uL APTT 30.1 H 46.1 H (22.0-30.0) sec Carbon Dioxide (22-30) mmol/L Glucose (74-99) mg/dL 07/04/24 Range/Units 05:58 RBC (4.40-5.60) X 10*6/uL Hgb (13.0-17.0) g/dL Hct (39.6-50.0) % MCHC (32.0-37.0) g/dL MPV (9.5-12.2) FL Immature Gran # (0.00-0.04) X 10*3/uL APTT (22.0-30.0) sec Carbon Dioxide 21 L (22-30) mmol/L Glucose 143 H (74-99) mg/dL Microbiology - Last 24 Hours (Table) 07/01/24 21:46 Blood Culture - Preliminary Blood 07/01/24 22:51 Urine Culture - Final Urine,Voided
[2024-07-04] MEDS: NITROGLYCERIN-D5W PMX 50 MG in DEXTROSE/WATER 1 250ML.BAG IV SCH (12:21)
[2024-07-04] MEDS ORDERED: NITROGLYCERIN SL TABS 0.4 MG TAB SUBLINGUAL PRN (12:56)
[2024-07-04] MEDS ORDERED: ALPRAZolam 0.5 MG TAB PO PRN (12:56)
[2024-07-04] MEDS ORDERED: ALPRAZolam 0.25 MG TAB PO PRN (12:56)
[2024-07-04 19:59] LABS: Glucose,Whole Blood 135 mg/dL (70-110)
--- NOTE | 2024-07-05 05:12 | P.PN ---
Subjective Progress Note Date: 07/04/24 This is a pleasant 74 years old male with past medical history of multiple medical problems as below including history of coronary artery disease status post CABG, diabetes mellitus. A-fib on Eliquis Patient also was not on aspirin at home but added here in the hospital. He presents initially because of chest pain and jaw pain which are separate. Chest pain is about for 3 days 12/19. In the middle of the chest radiating to the left shoulder increased with activity and decreased with sitting associated with mild jaw pain on the right side No dyspnea or coughing. No specific GI or symptoms no fever or chills He denies smoking or illicit drugs and he used alcohol occasionally No recent fall His account auditor is Dr. Gaitan Is afebrile and blood pressure is stable Mild leukocytosis at 12.3 and hemoglobin 11.7 well creatinine at baseline at 1.4 with baseline 1.1-1.5 D-dimer was elevated at 0.61 with a reference 0.60, corrected for age it will be within the reference range not elevated, this makes acute pulm embolism very unlikely. EKG showing sinus rhythm at [address]-T changes Chest x-ray showing right side rib deformity which could be secondary to trauma. No acute process. Echocardiogram is pending Patient continued on Eliquis 5 mg and aspirin 325 mg 07/03 Patient seen and examined at bedside, he just came from cardiac cath and is still sleepy from the procedure affect. No other new complaint reported no at bedside. Echocardiogram with ejection fraction 45 to 50% This second high diagonal branch of LAD is with significant disease and this may be a complex percutaneous intervention, as well as the LAD itself from its origin from the left main coronary artery. Within the stent and this diseased artery is high risk procedure, therefore account auditor preferred to wait 48 hours and then going to repeat the cardiac cath again. In the meantime Eliquis rem ains on hold per account auditor Creatinine today is improved to 1.4 down to 1.1 Patient was placed on IV fluid Recheck creatinine in the morning 07/04/2024 Patient is seen in follow-up today with cardiology following closely. Patient scheduled to undergo PCI stenting with cardiology on 07/05/2024. Patient continued on IV heparin drip and will continue other current cardiac medications. Patient is afebrile with no reported chest pain or shortness of breath. Patient is tolerating diet and will be n.p.o. at midnight. Continue monitoring blood sugars and okay for using patient's Dexcom readings. Treat accordingly with insulin and adjust as needed Review of systems CONSTITUTIONAL: No fever, no malaise, no fatigue. PULMONARY: No shortness of breath, no cough, no hemoptysis. GASTROINTESTINAL: No diarrhea, no nausea, no vomiting, no abdominal pain. Normoactive bowel sounds. NEUROLOGICAL: No headaches, no weakness, no numbness. HEMATOLOGICAL: Denies any bleeding or petechiae. GENITOURINARY: Denies any burning micturition, frequency, or urgency. Physical exam: Gen: This is a 74-year-old male who is awake, alert and oriented x 3, well- developed, elderly appearing, thin built HEENT: Head is atraumatic, normocephalic. Pupils equal, round. Sclerae is anicteric. NECK: Supple. No JVD. No lymphadenopathy. No thyromegaly. LUNGS: Diminished breath sounds bilaterally otherwise clear to auscultation. No wheezes or rhonchi. No intercostal retractions. HEART: S1, S2 are muffled ABDOMEN: Soft. Bowel sounds are present. No masses. No tenderness. EXTREMITIES: No pedal edema. No calf tenderness. NEUROLOGICAL: Patient is awake, alert and oriented x3. Cranial nerves 2 through 12 are grossly intact. Assessment: -Chest pain, status postcardiac cath on 07/03:This second high diagonal branch of LAD is with significant disease and this may be a complex percutaneous intervention, as well as the LAD itself from its origin from the left main coronary artery. Patient undergo PCI on 07/05/2024 -History of coronary artery disease status post CABG -CKD stage III -Chronic atrial fibrillation -History of CVA -Hypertension -Hyperlipidemia -Diabetes mellitus, type II, insulin-dependent -History of ulcerative colitis status post right ileostomy -History of GI bleed -Sleep apnea GI prophylaxis DVT prophylaxis Full code Plan: Cardiology team are planning for repeat cardiac cath for possible PCI stenting and will undergo on 07/05/2024 Continue gentle hydration and follow-up on repeat labs Hold Eliquis per account auditor, patient is continued on heparin drip Patient is a diabetic and has a Dexcom device and okay to use these readings as patient is refusing Accu-Cheks. Continue with insulin coverage and adjust accordingly Will await cardiology report on 07/05/2024 Due to multiple complex medical issues, overall prognosis is guarded The impression and plan of care has been dictated by Micki Tucker, Nurse Practitioner as directed. Dr. Yash MD I have performed a history and examination and MDM of this patient, discussed the same with the dictator, and agree with the dictator's assessment and plan as written ,documented as a scribe. Based on total visit time, I have performed more than 50% of the visit. Objective - Vital Signs Vital signs: Vital Signs Temp 97.9 F 07/04/24 20:00 Pulse 71 07/05/24 04:00 Resp 16 07/05/24 04:00 BP 112/55 07/05/24 04:00 Pulse Ox 95 07/05/24 04:00 FiO2 Intake & Output 07/04/24 07/04/24 07/05/24 06:59 18:59 06:59 Intake Total 59.436 565.513 240 Balance 59.436 565.513 240 Weight 63.6 kg Intake: Intake, IV Titration 59.436 163.513 Amount Heparin Sod,Pork in 0.45% 59.436 163.513 NaCl 25,000 unit In 0.45 % NaCl 1 250ml.bag @ 12 UNITS/KG/HR 7.62 mls/hr IV .Q24H [facility] Rx#: [id number] Oral 402 240 Other: # Voids 2 1 - Labs CBC & Chem 7: 07/04/24 05:58 07/04/24 05:58 Labs: Abnormal Lab Results - Last 24 Hours (Table) 07/04/24 07/04/24 07/04/24 Range/Units 05:54 05:58 05:58 RBC 3.74 L (4.40-5.60) X 10*6/uL Hgb 10.7 L (13.0-17.0) g/dL Hct 35.4 L (39.6-50.0) % MCHC 30.2 L (32.0-37.0) g/dL MPV 12.6 H (9.5-12.2) FL Immature Gran # 0.06 H (0.00-0.04) X 10*3/uL APTT 46.1 H (22.0-30.0) sec Carbon Dioxide 21 L (22-30) mmol/L Glucose 143 H (74-99) mg/dL POC Glucose (mg/dL) (70-110) mg/dL 07/04/24 Range/Units 19:56 RBC (4.40-5.60) X 10*6/uL Hgb (13.0-17.0) g/dL Hct (39.6-50.0) % MCHC (32.0-37.0) g/dL MPV (9.5-12.2) FL Immature Gran # (0.00-0.04) X 10*3/uL APTT (22.0-30.0) sec Carbon Dioxide (22-30) mmol/L Glucose (74-99) mg/dL POC Glucose (mg/dL) 135 H (70-110) mg/dL Microbiology - Last 24 Hours (Table) 07/01/24 21:46 Blood Culture - Preliminary Blood
[2024-07-05 06:04] LABS: HCT 34.7 % (39.0-53.0); HGB 10.8 gm/dL (13.0-17.5); Hypochromasia Slight; MCHC 31.2 g/dL (31.0-37.0); Mean Platelet Volume 8.8; Platelet Count 236 k/uL (150-450); RBC 3.73 m/uL (4.30-5.90); RDW 14.3 % (11.5-15.5); WBC 11.8 k/uL (3.8-10.6)
[2024-07-05] MEDS: ASPIRIN 325 MG TAB PO ONE (06:05)
[2024-07-05] MEDS: ATORVASTATIN 80 MG TAB PO ONE (06:05)
[2024-07-05 06:32] LABS: African American GFR (CKD) 65 (>60 ml/min/1.73 sqM); Anion Gap 10 mmol/L; Blood Urea Nitrogen 13 mg/dL (9-20); Calcium 8.9 mg/dL (8.4-10.2); Carbon Dioxide 23 mmol/L (22-30); Chloride 105 mmol/L (98-107); Glucose 88 mg/dL (74-99); Non-African American GFR(CKD) 56 (>60 ml/min/1.73 sqM); Sodium 138 mmol/L (137-145)
[2024-07-05 06:36] LABS: Potassium 5.1 mmol/L (3.5-5.1)
[2024-07-05] MEDS: SODIUM CHLORIDE 0.9% 1,000 ML IV ONE (09:27)
[2024-07-05] MEDS: MIDAZOLAM 2 MG/2 ML VIAL IVP ONE (09:43)
[2024-07-05] MEDS: fentaNYL (PF) 50 MCG/1 ML VIAL IVP ONE (09:43)
[2024-07-05] MEDS: LIDOCAINE 1% INJ 10MG/ML (20 ML MDV) SQ ONE (09:47)
[2024-07-05] MEDS: VERAPAMIL SYRINGE (5 MG/10 ML) INTRAARTER ONE (09:47)
[2024-07-05] MEDS: HEPARIN SODIUM 1,000 UN/ML (10ML VL) IVP ONE (09:52)
[2024-07-05] MEDS: PHENYLEPHRINE-0.9% NACL SYG 1,000 MCG/10 ML SYRINGE IVP ONE (10:04)
[2024-07-05] MEDS: HEPARIN SODIUM,PORCINE (1 ML) 2,500 UNIT in SODIUM CHLORIDE 0.9% 250 ML IRRIGATION PRN (10:14)
[2024-07-05] MEDS: HEPARIN SODIUM,PORCINE 10,000 UNIT in SODIUM CHLORIDE 0.9% 1,000 ML IRRIGATION PRN (10:14)
[2024-07-05] MEDS: IOPAMIDOL-370 100ML BTL INJ ONE ×2 (10:28→10:50)
[2024-07-05] MEDS: NITROGLYCERIN 1000MCG/10ML SYRINGE INTRACORON ONE (10:34)
[2024-07-05] MEDS ORDERED: ATROPINE SULFATE 0.1 MG/ML 10ML SYRINGE IV PRN (11:04)
[2024-07-05] MEDS ORDERED: MAG HYDROX/AL HYDROX/SIMETH 30 ML CUP PO PRN (11:04)
[2024-07-05] MEDS ORDERED: RX INFO: IV CONTRAST WAS GIVEN 1 EACH MISC MISCELLANE PRN (11:04)
[2024-07-05] MEDS ORDERED: ZOLPIDEM 5 MG TAB PO PRN (11:04)
[2024-07-05 11:36] LABS: Glucose,Whole Blood 85 mg/dL (70-110)
--- NOTE | 2024-07-05 17:24 | P.PRCINT ---
Percutaneous Coronary Int. - Percutaneous Coronary Intervention Percutaneous Coronary Intervention: PROCEDURES PERFORMED: Left coronary angiography, SVG to PDA and PLV angiography, ultrasound guided arterial access, PCI left main into diagonal 1 branch with a 3.0 x 18mm Xience ADALGISA, post dilated proximally with a 4.0mm NC balloon, IVUS left main into diagonal INDICATION: Unstable angina, NYHA class 4 symptoms CONSENT:I have discussed the risks, benefits and alternative therapies for the above-mentioned procedure and for both sedation/analgesia as well as necessary blood product administration, if indicated, as they pertain to this patient. The patient has indicated understanding and acceptance of the risks and procedures discussed. PROCEDURE: After the risks, benefits and alternatives of the above mentioned procedure explained in detail with the patient, informed consent was obtained. Patient was taken to the catheterization lab and prepped and draped in usual fashion. Ultrasound guidance was used to assess for arterial access. 1% lidocaine was used to anesthetize the right radial artery. patient previously had diagnostic angiograms which showed severe progression of left main disease in to diagonal 1 branch with patent ABBOTT to LAD and circumflex nearly 100% stenosis with some left to left collaterals. SVG to PDA was not able to be cannulated/found secondary to contrast thresholds. Therefore decision was made to bring patient back for repeat attempted SVG angiography and PCI. A 6-Ecuadorean sheath was placed in the right radial artery using modified Seldinger technique and ultrasound guidance. using a 6-Ecuadorean JL 1.0 diagnostic catheter, the SVG to PDA and PLV was cannulated and angiography was performed. The decision was made to perform PCI of left main and the diagonal 1 branch. Heparin was given. A 6-Ecuadorean CLS 3.5 guide was used to engage the left main. A 0.014 BMW wire was advanced the distal diagonal one superior as well as inferior branch with 2 different wires. Predilation was performed with a 2.5 x 12 balloon. Next intervascular ultrasound showed left main approximately 3.75- 4.0 mm and LAD/diagonal diffusely diseased with reference diagonal 1 branch 3.0 mm. A 3.0 x 18 mm drug-eluting stent was placed. The proximal portion of the stent was postdilated with a 4.0 mm noncompliant balloon. Final angiograms were performed. Repeat intravascular ultrasound showed excellent stent expansion with no dissection. Preintervention there was 99% stenosis and JASON-2 flow and postintervention there is less than 10% stenosis with JASON 3 flow. There did not appear to be any compromise of any of the smaller circumflex, OM1 and/or moles ramus or LAD. Patient was chest pain-free. The right radial sheath was removed and a TR band was placed with hemostasis achieved. The patient tolerated the procedure well. Patient was transported back to the post catheterization holding area in stable condition. Conscious Sedation: Patient was monitored under the direct supervision of myself for conscious sedation using Versed and fentanyl for a total duration of 56 jovita juliet HEMODYNAMICS: Ao: 106/67 SELECTIVE CORONARY ARTERIOGRAPHY: LEFT MAIN: The left main is a large caliber vessel which bifurcates into the LAD and circumflex. There is distal left main 70-80% stenosis. LEFT ANTERIOR DESCENDING CORONARY ARTERY: LAD is a large caliber vessel which wraps around to the apex. There is 99% proximal LAD stenosis mainly leading to a small diagonal 1 branch. Diagonal 2 is small caliber and has proximal disease. There is 100% mid LAD stenosis LEFT CIRCUMFLEX CORONARY ARTERY: Left circumflex is a small caliber vessel with 100% proximal stenosis with left to left collaterals RIGHT CORONARY ARTERY: The right coronary artery was not imaged SVG to PDA/PLV: widely patent ABBOTT to LAD: not imaged however known to be patent to LAD and diagonal jump occluded FINAL IMPRESSION: 1. CAD as described above with 70-80% left main, 99% proximal LAD (into diagonal 1), 100% mid LAD, 100% circumflex stenosis 2. SVG to PDA/PLV patent and known patent ABBOTT to LAD 3. S/p PCI left main into diagonal 1 branch with a 3.0 x 18mm Xience ADALGISA, post dilated proximally with a 4.0mm NC balloon PLAN: 1. Aggressive risk factor modification per most recent ACC/AHA guidelines. 2. Continue dual antiplatelets with aspirin and Plavix for 12 months
[2024-07-05] MEDS: LOPERAMIDE 2 MG CAP PO PRN (20:01)
[2024-07-05 20:35] LABS: Glucose,Whole Blood 117 mg/dL (70-110)
[2024-07-06 06:57] LABS: African American GFR (CKD) 65 (>60 ml/min/1.73 sqM); Anion Gap 9 mmol/L; Blood Urea Nitrogen 12 mg/dL (9-20); Calcium 8.6 mg/dL (8.4-10.2); Carbon Dioxide 25 mmol/L (22-30); Chloride 101 mmol/L (98-107); Glucose 108 mg/dL (74-99); Non-African American GFR(CKD) 57 (>60 ml/min/1.73 sqM); Potassium 4.1 mmol/L (3.5-5.1); Sodium 135 mmol/L (137-145)
[2024-07-06 06:59] LABS: Basophils % (A) 0 %; Eosinophils # (A) 0.1 k/uL (0-0.7); Eosinophils % (A) 1 %; HCT 29.5 % (39.0-53.0); HGB 9.8 gm/dL (13.0-17.5); Lymphocytes # (A) 0.9 k/uL (1.0-4.8); Lymphocytes % (A) 10 %; MCH 30.1 pg (25.0-35.0); MCHC 33.1 g/dL (31.0-37.0); MCV 90.8 fL (80.0-100.0); Mean Platelet Volume 9.5; Monocytes # (A) 0.7 k/uL (0-1.0); Monocytes % (A) 8 %; Neutrophils # (A) 6.7 k/uL (1.3-7.7); Neutrophils % (A) 79 %; Platelet Count 185 k/uL (150-450); RBC 3.25 m/uL (4.30-5.90); RDW 14.5 % (11.5-15.5); WBC 8.5 k/uL (3.8-10.6)
[2024-07-06 09:01] VITALS: BP 97/55; PULSE 70; RESP 20; TEMP 97.7
--- NOTE | 2024-07-06 09:18 | P.PN ---
Subjective Progress Note Date: 07/05/24 This is a pleasant 74 years old male with past medical history of multiple medical problems as below including history of coronary artery disease status post CABG, diabetes mellitus. A-fib on Eliquis Patient also was not on aspirin at home but added here in the hospital. He presents initially because of chest pain and jaw pain which are separate. Chest pain is about for 3 days 12/19. In the middle of the chest radiating to the left shoulder increased with activity and decreased with sitting associated with mild jaw pain on the right side No dyspnea or coughing. No specific GI or symptoms no fever or chills He denies smoking or illicit drugs and he used alcohol occasionally No recent fall His color specialist is Dr. Gaitan Is afebrile and blood pressure is stable Mild leukocytosis at 12.3 and hemoglobin 11.7 well creatinine at baseline at 1.4 with baseline 1.1-1.5 D-dimer was elevated at 0.61 with a reference 0.60, corrected for age it will be within the reference range not elevated, this makes acute pulm embolism very unlikely. EKG showing sinus rhythm at [address]-T changes Chest x-ray showing right side rib deformity which could be secondary to trauma. No acute process. Echocardiogram is pending Patient continued on Eliquis 5 mg and aspirin 325 mg 07/03 Patient seen and examined at bedside, he just came from cardiac cath and is still sleepy from the procedure affect. No other new complaint reported no at bedside. Echocardiogram with ejection fraction 45 to 50% This second high diagonal branch of LAD is with significant disease and this may be a complex percutaneous intervention, as well as the LAD itself from its origin from the left main coronary artery. Within the stent and this diseased artery is high risk procedure, therefore color specialist preferred to wait 48 hours and then going to repeat the cardiac cath again. In the meantime Eliquis rem ains on hold per color specialist Creatinine today is improved to 1.4 down to 1.1 Patient was placed on IV fluid Recheck creatinine in the morning 07/04/2024 Patient is seen in follow-up today with cardiology following closely. Patient scheduled to undergo PCI stenting with cardiology on 07/05/2024. Patient continued on IV heparin drip and will continue other current cardiac medications. Patient is afebrile with no reported chest pain or shortness of breath. Patient is tolerating diet and will be n.p.o. at midnight. Continue monitoring blood sugars and okay for using patient's Dexcom readings. Treat accordingly with insulin and adjust as needed 07/05/2024 Patient is seen in follow-up this morning status post cardiac catheterization and PCI stenting to the LAD with cardiology following closely. Patient will be monitored overnight on continue telemetry monitoring and possible discharge planning in 24 hours. Patient to continue with current cardiac medications and will need close outpatient follow-up with cardiology. Plan is for patient to return home with family. Patient is currently afebrile with no reports of chest pain or shortness of breath. Patient denies nausea or vomiting and has been tolerating diet. Will follow-up on repeat labs in the a.m. Movement in the Review of systems CONSTITUTIONAL: No fever, no malaise, no fatigue. PULMONARY: No shortness of breath, no cough, no hemoptysis. GASTROINTESTINAL: No diarrhea, no nausea, no vomiting, no abdominal pain. N ormoactive bowel sounds. NEUROLOGICAL: No headaches, no weakness, no numbness. HEMATOLOGICAL: Denies any bleeding or petechiae. GENITOURINARY: Denies any burning micturition, frequency, or urgency. Physical exam: Gen: This is a 74-year-old male who is awake, alert and oriented x 3, well-developed, elderly appearing, thin built HEENT: Head is atraumatic, normocephalic. Pupils equal, round. Sclerae is anicteric. NECK: Supple. No JVD. No lymphadenopathy. No thyromegaly. LUNGS: Diminished breath sounds bilaterally otherwise clear to auscultation. No wheezes or rhonchi. No intercostal retractions. HEART: S1, S2 are muffled ABDOMEN: Soft. Bowel sounds are present. No masses. No tenderness. EXTREMITIES: No pedal edema. No calf tenderness. NEUROLOGICAL: Patient is awake, alert and oriented x3. Cranial nerves 2 through 12 are grossly intact. Assessment: -Chest pain, status postcardiac cath on 07/03:This second high diagonal branch of LAD is with significant disease and this may be a complex percutaneous intervention, as well as the LAD itself from its origin from the left main co ronary artery. Patient underwent successful PCI stenting of the LAD 07/05/2024 -History of coronary artery disease status post CABG -CKD stage III -Chronic atrial fibrillation -History of CVA -Hypertension -Hyperlipidemia -Diabetes mellitus, type II, insulin-dependent -History of ulcerative colitis status post right ileostomy -History of GI bleed -Sleep apnea GI prophylaxis DVT prophylaxis Full code Plan: Cardiology team following and patient is status post PCI stenting of the LAD this morning. Patient will be monitored overnight on continue telemetry monitoring and current cardiac medications Continue gentle hydration and follow-up on repeat labs Patient was on Eliquis and will need to discuss with cardiology if resuming. Patient to continue aspirin and Plavix for minimum 12 months Patient is a diabetic and has a Dexcom device and okay to use these readings as patient is refusing Accu-Cheks. Continue with insulin coverage and adjust accordingly Will await cardiology report on 07/05/2024 Due to multiple complex medical issues, overall prognosis is guarded Possible discharge planning in 24 hours The impression and plan of care has been dictated by Micki Tucker, Nurse Practitioner as directed. Dr. Yash MD I have performed a history and examination and MDM of this patient, discussed the same with the dictator, and agree with the dictator's assessment and plan as written ,documented as a scribe. Based on total visit time, I have performed more than 50% of the visit. Objective - Vital Signs Vital signs: Vital Signs Temp 97.7 F 07/06/24 08:00 Pulse 70 07/06/24 08:00 Resp 20 07/06/24 08:00 BP 97/55 07/06/24 08:00 Pulse Ox 96 07/06/24 08:00 FiO2 Intake & Output 07/05/24 07/06/24 07/06/24 18:59 06:59 18:59 Intake Total 1074.997 540 Output Total 450 200 Balance 624.997 340 Weight 76 kg Intake: IV 230 Intake, IV Titration 608.997 Amount Heparin Sod,Pork in 0.45% 8.997 NaCl 25,000 unit In 0.45 % NaCl 1 250ml.bag @ 12 UNITS/KG/HR 7.62 mls/hr IV .Q24H [facility] Rx#: [id number] Sodium Chloride 0.9% 1, 600 000 ml @ 0 mls/hr IV .STK -[facility] Rx#:[id number] Oral 236 540 Output: Urine 450 200 Other: Voiding Method Urinal - Labs CBC & Chem 7: 07/06/24 05:55 07/06/24 05:55 Labs: Abnormal Lab Results - Last 24 Hours (Table) 07/05/24 07/06/24 07/06/24 Range/Units 20:34 05:55 05:55 RBC 3.25 L (4.30-5.90) m/uL Hgb 9.8 L (13.0-17.5) gm/dL Hct 29.5 L (39.0-53.0) % Lymphocytes # 0.9 L (1.0-4.8) k/uL Sodium 135 L (137-145) mmol/L Glucose 108 H (74-99) mg/dL POC Glucose (mg/dL) 117 H (70-110) mg/dL Microbiology - Last 24 Hours (Table) 07/01/24 21:46 Blood Culture - Preliminary Blood
--- NOTE | 2024-07-06 09:31 | P.DS ---
Providers Date of admission: 07/04/24 07:33 Expected date of discharge: 07/06/24 Attending physician: Xiomara Berrios Consults: 07/01/24 20:22 Consult Physician Urgent Consulting Provider: Nadeen Gaitan Consult Reason/Comments: cp Do you want consulting provider notified?: Yes 07/05/24 11:04 Consult Physician Routine Consulting Provider: [facility] Consult Reason/Comments: Post Interventional Patient Do you want consulting provider notified?: Already Contacted Primary care physician: Miguel Bautista [facility] Course: Final diagnosis -Chest pain, status postcardiac cath on 07/03:This second high diagonal branch of LAD is with significant disease and this may be a complex percutaneous intervention, as well as the LAD itself from its origin from the left main coronary artery. Patient underwent successful PCI stenting of the LAD 07/05/2024 -History of coronary artery disease status post CABG -CKD stage III -Chronic atrial fibrillation -History of CVA -Hypertension -Hyperlipidemia -Diabetes mellitus, type II, insulin-dependent -History of ulcerative colitis status post right ileostomy -History of GI bleed -Sleep apnea GI prophylaxis DVT prophylaxis Full code Discharge disposition Patient is being discharged in a stable condition with guarded prognosis to home. Patient will follow-up with Dr. Bautista in the outpatient setting upon discharge. Patient is to continue with current medications including aspirin and Plavix for minimum 12 months and close outpatient follow-up with resort host Dr. Gaitan as scheduled. Total time taken is greater than 35 minutes. Hospital course This is a 74-year-old male who was recently admitted with chest pain being evaluated by cardiology. Patient is status post cardiac catheterization noted to have significant disease of the LAD and is status post PCI stenting to the LAD with Dr. Birch. Patient to continue on aspirin and Plavix and is also maintained on Eliquis for A-fib and will follow-up with Dr. Gaitan outpatient. Patient is a diabetic with a Dexcom device and insulin-dependent to continue monitoring blood sugars and continue with heart healthy diabetic diet. Patient has been cleared by cardiology recommending close outpatient follow-up. Patient reports to feeling well and would like to go home. Please refer to cardiology notes for further HPI. Currently no reports of chest pain, shortness of breath, or palpitations. Patient is afebrile. No reports of nausea or vomiting and patient is tolerating diet. Patient will be discharged home today. Guarded prognosis given significant comorbidities. Physical exam: Gen: This is a 74-year-old male who is awake, alert and oriented x 3, well- developed, elderly appearing, thin built HEENT: Head is atraumatic, normocephalic. Pupils equal, round. Sclerae is anicteric. NECK: Supple. No JVD. No lymphadenopathy. No thyromegaly. LUNGS: Diminished breath sounds bilaterally otherwise clear to auscultation. No wheezes or rhonchi. No intercostal retractions. HEART: S1, S2 are muffled ABDOMEN: Soft. Thin. Bowel sounds are present. No masses. No tenderness. EXTREMITIES: No pedal edema. No calf tenderness. NEUROLOGICAL: Patient is awake, alert and oriented x3. Cranial nerves 2 through 12 are grossly intact. Please refer to medication reconciliation sheet for a list of medications. The impression and plan of care has been dictated by Micki Tucker, Nurse Practitioner as directed. Dr. Yash MD I have performed a history and examination and MDM of this patient, discussed the same with the dictator, and agree with the dictator's assessment and plan as written ,documented as a scribe. Based on total visit time, I have performed more than 50% of the visit. Patient Condition at Discharge: Fair Plan - Discharge Summary Discharge Rx Participant: No New Discharge Prescriptions: New Aspirin 81 mg PO DAILY #30 tab Atorvastatin [Lipitor] 40 mg PO HS #30 tab Metoprolol Tartrate [Lopressor] 50 mg PO BID #60 tab Nitroglycerin Sl Tabs [Nitrostat] 0.4 mg SUBLINGUAL Q5M PRN #20 tab PRN Reason: Chest Pain Clopidogrel [Plavix] 75 mg PO DAILY #30 tab Ranolazine [Ranexa] 500 mg PO Q12HR #60 tab Continue Tamsulosin [Flomax] 0.4 mg PO HS Finasteride [Proscar] 5 mg PO DAILY Ascorbic Acid [Vitamin C] 500 mg PO DAILY DULoxetine HCL [Cymbalta] 30 mg PO DAILY Loperamide [Imodium] 8 mg PO TID Cholecalciferol [Vitamin D3 (25 Mcg = 1000 Iu)] 25 mcg PO DAILY Melatonin 5 mg PO HS Loratadine [Claritin] 10 mg PO DAILY PRN PRN Reason: Allergy Symptoms Omeprazole 20 mg PO DAILY Fesoterodine Fumarate [Fesoterodine Fumarate ER] 8 mg PO DAILY Insulin Lispro [humaLOG Kwikpen] 8 unit SQ AC-BID@0800,1200 Insulin Glargine,Hum.rec.anlog [Basaglar Kwikpen U-100] 35 unit SQ HS Loratadine [Claritin] 10 mg PO DAILY Turmeric Root Extract [Turmeric] 1,000 mg PO DAILY Apixaban [Eliquis] 5 mg PO BID Ferrous Sulfate [Iron (65 MG Elemental)] 325 mg PO HS Folate 400mg 400 mg PO HS Turmeric Root Extract [Turmeric Curcumin] 500 mg PO HS Cranberry(Unknown Dose) 1 cap PO HS Pioglitazone [Actos] 15 mg PO MOWEFR Insulin Lispro [humaLOG Kwikpen] 10 unit SQ AC-SUPPER Guar Gum 400 2 tab PO BID Discontinued Atorvastatin [Lipitor] 10 mg PO HS Metoprolol Tartrate [Lopressor] 25 mg PO BID@1800,2100 Metoprolol Tartrate [Lopressor] 50 mg PO DAILY Discharge Medication List Finasteride [Proscar] 5 mg PO DAILY 02/06/17 [History] Tamsulosin [Flomax] 0.4 mg PO HS 02/06/17 [History] Loratadine [Claritin] 10 mg PO DAILY 08/29/20 [History] Turmeric Root Extract [Turmeric] 1,000 mg PO DAILY 08/29/20 [History] Apixaban [Eliquis] 5 mg PO BID 01/12/22 [History] Ascorbic Acid [Vitamin C] 500 mg PO DAILY 01/12/22 [History] DULoxetine HCL [Cymbalta] 30 mg PO DAILY 01/15/22 [History] Cholecalciferol [Vitamin D3 (25 Mcg = 1000 Iu)] 25 mcg PO DAILY 05/06/22 [History] Ferrous Sulfate [Iron (65 MG Elemental)] 325 mg PO HS 05/06/22 [History] Loperamide [Imodium] 8 mg PO TID 05/06/22 [History] Cranberry(Unknown Dose) 1 cap PO HS 07/01/24 [History] Fesoterodine Fumarate [Fesoterodine Fumarate ER] 8 mg PO DAILY 07/01/24 [History] Folate 400mg 400 mg PO HS 07/01/24 [History] Guar Gum 400 2 tab PO BID 07/01/24 [History] Insulin Glargine,Hum.rec.anlog [Basaglar Kwikpen U-100] 35 unit SQ HS 07/01/24 [History] Insulin Lispro [humaLOG Kwikpen] 8 unit SQ AC-BID@0800,1200 07/01/24 [History] Insulin Lispro [humaLOG Kwikpen] 10 unit SQ AC-SUPPER 07/01/24 [History] Loratadine [Claritin] 10 mg PO DAILY PRN 07/01/24 [History] Melatonin 5 mg PO HS 07/01/24 [History] Omeprazole 20 mg PO DAILY 07/01/24 [History] Pioglitazone [Actos] 15 mg PO MOWEFR 07/01/24 [History] Turmeric Root Extract [Turmeric Curcumin] 500 mg PO HS 07/01/24 [History] Aspirin 81 mg PO DAILY #30 tab 07/06/24 [Rx] Atorvastatin [Lipitor] 40 mg PO HS #30 tab 07/06/24 [Rx] Clopidogrel [Plavix] 75 mg PO DAILY #30 tab 07/06/24 [Rx] Metoprolol Tartrate [Lopressor] 50 mg PO BID #60 tab 07/06/24 [Rx] Nitroglycerin Sl Tabs [Nitrostat] 0.4 mg SUBLINGUAL Q5M PRN #20 tab 07/06/24 [Rx] Ranolazine [Ranexa] 500 mg PO Q12HR #60 tab 07/06/24 [Rx] Follow up Appointment(s)/Referral(s): Miguel Bautista MD [Primary Care Provider] - 1-2 days Nadeen Gaitan MD [STAFF PHYSICIAN] - 1 Week Activity/Diet/Wound Care/Special Instructions: Activity limited until follow-up Follow-up with primary care provider on discharge Follow-up with cardiology outpatient Continue taking medications as prescribed Continue diabetic heart healthy diet Discharge Disposition: HOME SELF-CARE
--- NOTE | 2024-07-06 11:18 | P.PN ---
Subjective HISTORY OF PRESENT ILLNESS: This is a 74-year-old male who underwent initial cardiac catheterization with Dr. Gaitan. He underwent stenting yesterday with Dr. Birch revealing 70 to 80% left main, 99% proximal LAD and diagonal 1, 100% mid LAD, 100% circumflex stenosis. SVG to PDA/PVL patent and known patent ABBOTT to LAD. Patient underwent PCI of the left main into the diagonal branch. Patient examined this morning the bedside. Patient currently denies any chest pain or pressure. He denies any shortness of breath. Vital signs are stable. PHYSICAL EXAM: VITAL SIGNS: Reviewed. GENERAL: Well-developed in no acute distress. NECK: Supple. No JVD or thyromegaly LUNGS: Respirations even and unlabored. Lungs essentially clear to auscultation bilaterally. HEART: Regular rate and rhythm. S1 and S2 heard. EXTREMITIES: Normal range of motion. No clubbing or cyanosis. Peripheral pulses intact. No lower extremity edema ASSESSMENT: Chest pain status post cardiac catheterization as above with stenting of the left main into the diagonal branch History of coronary artery disease with prior CA and CABG Hypertension Hyperlipidemia Diabetes mellitus type 2 Paroxysmal atrial fibrillation on Eliquis PLAN: Continue triple therapy with aspirin, Plavix, and Eliquis for 1 week. After 1 week discontinue aspirin. Continue statin therapy. LDL goal less than 70. Continue additional cardiac medications Patient is stable for discharge home today from a cardiac standpoint Patient to follow-up postdischarge with Dr. Gaitan Nurse practitioner note has been reviewed by physician. Signing provider agrees with the documented findings, assessment, and plan of care documented by MARKETING PROJECT LEAD as a scribe. Objective - Vital Signs Vital signs: Vital Signs Temp 97.7 F 07/06/24 08:00 Pulse 70 07/06/24 08:00 Resp 20 07/06/24 08:00 BP 97/55 07/06/24 08:00 Pulse Ox 96 07/06/24 08:00 FiO2 Intake & Output 07/05/24 07/06/24 07/06/24 18:59 06:59 18:59 Intake Total 1074.997 540 240 Output Total 450 200 Balance 624.997 340 240 Weight 76 kg Intake: IV 230 Intake, IV Titration 608.997 Amount Heparin Sod,Pork in 0.45% 8.997 NaCl 25,000 unit In 0.45 % NaCl 1 250ml.bag @ 12 UNITS/KG/HR 7.62 mls/hr IV .Q24H [facility] Rx#: [id number] Sodium Chloride 0.9% 1, 600 000 ml @ 0 mls/hr IV .[facility] Rx#:[id number] Oral 236 540 240 Output: Urine 450 200 Other: Voiding Method Urinal # Voids 2 - Labs CBC & Chem 7: 07/06/24 05:55 07/06/24 05:55 Labs: Abnormal Lab Results - Last 24 Hours (Table) 07/05/24 07/06/24 07/06/24 Range/Units 20:34 05:55 05:55 RBC 3.25 L (4.30-5.90) m/uL Hgb 9.8 L (13.0-17.5) gm/dL Hct 29.5 L (39.0-53.0) % Lymphocytes # 0.9 L (1.0-4.8) k/uL Sodium 135 L (137-145) mmol/L Glucose 108 H (74-99) mg/dL POC Glucose (mg/dL) 117 H (70-110) mg/dL
== END 2024-07-06 11:34 | disposition home or self-care (01) | DRG 322 ==
LOC: EC 17:39 → 6NMEDSUR 20:23 → OBSVTOIN 07-04 07:33 → 3SCARD 07-04 11:17
PROVIDERS: ADMIT Hospitalist; ATTEND Hospitalist
PROC: B2111ZZ Fluoroscopy of Multiple Coronary Arteries using Low Osmolar Contrast (ICD-10-PCS; 2024-07-03)
PROC: B2181ZZ Fluoroscopy of Left Internal Mammary Bypass Graft using Low Osmolar Contrast (ICD-10-PCS; 2024-07-03)
PROC: B2131ZZ Fluoroscopy of Multiple Coronary Artery Bypass Grafts using Low Osmolar Contrast (ICD-10-PCS; 2024-07-03)
PROC: 4A023N7 Measurement of Cardiac Sampling and Pressure, Left Heart, Percutaneous Approach (ICD-10-PCS; principal; 2024-07-03 10:30)
PROC: B240ZZ3 Ultrasonography of Single Coronary Artery, Intravascular (ICD-10-PCS; 2024-07-05)
PROC: B2111ZZ Fluoroscopy of Multiple Coronary Arteries using Low Osmolar Contrast (ICD-10-PCS; 2024-07-05)
PROC: 027034Z Dilation of Coronary Artery, One Artery with Drug-eluting Intraluminal Device, Percutaneous Approach (ICD-10-PCS; 2024-07-05 07:30)
DX: T82.857A Stenosis of other cardiac prosthetic devices, implants and grafts, initial encounter (principal); I25.720 Atherosclerosis of autologous artery coronary artery bypass graft(s) with unstable angina pectoris; I12.9 Hypertensive chronic kidney disease with stage 1 through stage 4 chronic kidney disease, or unspecified chronic kidney disease; N18.30 Chronic kidney disease, stage 3 unspecified; I08.3 Combined rheumatic disorders of mitral, aortic and tricuspid valves; E11.22 Type 2 diabetes mellitus with diabetic chronic kidney disease; K51.90 Ulcerative colitis, unspecified, without complications; G47.30 Sleep apnea, unspecified; H91.90 Unspecified hearing loss, unspecified ear; I25.2 Old myocardial infarction; I48.0 Paroxysmal atrial fibrillation; Z79.01 Long term (current) use of anticoagulants; K21.9 Gastro-esophageal reflux disease without esophagitis; E78.5 Hyperlipidemia, unspecified; N40.0 Benign prostatic hyperplasia without lower urinary tract symptoms; K52.9 Noninfective gastroenteritis and colitis, unspecified; Z87.19 Personal history of other diseases of the digestive system; Z71.6 Tobacco abuse counseling; Z79.84 Long term (current) use of oral hypoglycemic drugs; Z79.4 Long term (current) use of insulin; Z79.899 Other long term (current) drug therapy; Z82.49 Family history of ischemic heart disease and other diseases of the circulatory system; Z86.73 Personal history of transient ischemic attack (TIA), and cerebral infarction without residual deficits; Z11.52 Encounter for screening for COVID-19; Z87.442 Personal history of urinary calculi; Z98.42 Cataract extraction status, left eye; Z98.41 Cataract extraction status, right eye; Z96.653 Presence of artificial knee joint, bilateral; Z96.1 Presence of intraocular lens; Z88.5 Allergy status to narcotic agent
CPT/HCPCS: 36415; 71046; 80048; 80053; 80061; 81003; 83735; 84484; 85025; 85027; 85379; 85610; 85730; 87040; 87086; 87636; 92978; 93005; 93306; 93455; 93567; 96360; 96361; 99285

== ENCOUNTER 2024-11-14 16:30 | Inpatient (IN) | payer MEDICARE ==
[2024-11-14] MEDS ORDERED: HEPARIN SODIUM 1,000 UN/ML (10ML VL) IV PRN (17:02)
[2024-11-14 17:21] LABS: Basophils # (A) 0.02 10*3/uL (0.00-0.10); Basophils % (A) 0.2 %; Eosinophils # (A) 0.21 10*3/uL (0.04-0.35); Eosinophils % (A) 2.2 %; HCT 30.6 % (39.6-50.0); HGB 9.9 g/dL (13.0-17.0); Lymphocytes # (A) 0.88 10*3/uL (0.90-5.00); Lymphocytes % (A) 9.4 %; MCHC 32.4 g/dL (32.0-37.0); MCV 92.7 fL (80.0-97.0); Mean Platelet Volume 11.8 fL (9.5-12.2); Monocytes # (A) 0.88 10*3/uL (0.20-1.00); Monocytes % (A) 9.4 %; Neutrophils # (A) 7.35 10*3/uL (1.80-7.70); Neutrophils % (A) 78.4 %; Platelet Count 181 10*3/uL (140-440); RDW 14.4 % (11.5-14.5); WBC 9.38 10*3/uL (4.50-10.00)
[2024-11-14 17:31] LABS: INR 1.1 (<1.2); Partial Thromboplastin Time 26.7 sec (22.0-30.0); Prothrombin Time 11.6 sec (10.0-12.5)
--- NOTE | 2024-11-14 17:32 | ED ---
Chest Pain HPI - General Chief Complaint: Chest Pain Stated Complaint: Chest Pain Time Seen by Provider: 11/14/24 16:35 Source: patient Mode of arrival: ambulatory Limitations: no limitations - History of Present Illness Initial Comments: 74-year-old male with past medical history of A-fib on Eliquis, coronary artery disease status post bypass who presents emergency department under the direction of Dr. Gaitan. Patient has had intermittent chest pain over the past couple of weeks. Patient had an intense episode today after he was exerting himself around the house. He did take a nitro which completely resolved his symptoms. He called Dr. Gaitan who directed him to come to the emergency department. At this time he reports he is pain-free. He does admit to some associated shortness of breath. No nausea or vomiting. Patient denies fevers, chills or cough. No other alleviating, precipitating or modifying factors - Related Data Home Medications Medication Instructions Recorded Confirmed Finasteride [Proscar] 5 mg PO DAILY 02/06/17 07/01/24 Tamsulosin [Flomax] 0.4 mg PO HS 02/06/17 07/01/24 Loratadine [Claritin] 10 mg PO DAILY 08/29/20 07/01/24 Turmeric Root Extract [Turmeric] 1,000 mg PO DAILY 08/29/20 07/01/24 Apixaban [Eliquis] 5 mg PO BID 01/12/22 07/01/24 Ascorbic Acid [Vitamin C] 500 mg PO DAILY 01/12/22 07/01/24 DULoxetine HCL [Cymbalta] 30 mg PO DAILY 01/15/22 07/01/24 Cholecalciferol [Vitamin D3 (25 25 mcg PO DAILY 05/06/22 07/01/24 Mcg = 1000 Iu)] Ferrous Sulfate [Iron (65 MG 325 mg PO HS 05/06/22 07/01/24 Elemental)] Loperamide [Imodium] 8 mg PO TID 05/06/22 07/01/24 Cranberry(Unknown Dose) 1 cap PO HS 07/01/24 07/01/24 Fesoterodine Fumarate 8 mg PO DAILY 07/01/24 07/01/24 [Fesoterodine Fumarate ER] Folate 400mg 400 mg PO HS 07/01/24 07/01/24 Guar Gum 400 2 tab PO BID 07/01/24 07/01/24 Insulin Glargine,Hum.rec.anlog 35 unit SQ HS 07/01/24 07/01/24 [Basaglar Kwikpen U-100] Insulin Lispro [humaLOG Kwikpen] 8 unit SQ AC-BID@0800,1200 07/01/24 07/01/24 Insulin Lispro [humaLOG Kwikpen] 10 unit SQ AC-SUPPER 07/01/24 07/01/24 Loratadine [Claritin] 10 mg PO DAILY PRN 07/01/24 07/01/24 Melatonin 5 mg PO HS 07/01/24 07/01/24 Omeprazole 20 mg PO DAILY 07/01/24 07/01/24 Pioglitazone [Actos] 15 mg PO MOWEFR 07/01/24 07/01/24 Turmeric Root Extract [Turmeric 500 mg PO HS 07/01/24 07/01/24 Curcumin] Previous Rx's Medication Instructions Recorded Aspirin 81 mg PO DAILY #30 tab 07/06/24 Atorvastatin [Lipitor] 40 mg PO HS #30 tab 07/06/24 Clopidogrel [Plavix] 75 mg PO DAILY #30 tab 07/06/24 Metoprolol Tartrate [Lopressor] 50 mg PO BID #60 tab 07/06/24 Nitroglycerin Sl Tabs [Nitrostat] 0.4 mg SUBLINGUAL Q5M PRN #20 tab 07/06/24 Ranolazine [Ranexa] 500 mg PO Q12HR #60 tab 07/06/24 Allergies Allergy/AdvReac Type Severity Reaction Status Date / Time codeine Allergy Rash/Hives Verified 11/14/24 16:37 morphine Allergy Rash/Hives Verified 11/14/24 16:37 Review of Systems ROS Statement: Those systems with pertinent positive or pertinent negative responses have been documented in the HPI. ROS Other: All systems not noted in ROS Statement are negative. Past Medical History Past Medical History: Atrial Fibrillation, Coronary Artery Disease (CAD), CVA/TIA, Diabetes Mellitus, Eye Disorder, GERD/Reflux, GI Bleed, Hearing Disorder / Deafness, Hyperlipidemia, Hypertension, Prostate Disorder, Renal Disease, Sleep Apnea/CPAP/BIPAP Additional Past Medical History / Comment(s): CVA in 2014 and 2018/some residual balance issues, IDDM type II, ulcerative colitis/had J pouch and later ileostomy, chronic diarrhea/dehydration, ileal polyps, recurrent nephrolithiasis, pyelonephritis, BPH, ANGEL occasionally wears Cpap, chronic low iron, bilaterally [place]/aides, takes eye drops to prevent glaucoma History of Any Multi-Drug Resistant Organisms: None Reported Past Surgical History: Appendectomy, Bowel Resection, Coronary Bypass/CABG, Heart Catheterization, Hernia Repair, Joint Replacement Additional Past Surgical History / Comment(s): 2020 CABG with 4 vessel bypass, colectomy with ileostomy, previous J pouch, colonoscopies, EGD, abdominal hernia/mesh, lithotripsy with R ureteral stent, L partial knee arthroplasty, bilateral cataract removal/lens implants, L eye surgery for detached retina. Past Anesthesia/Blood Transfusion Reactions: No Reported Reaction Additional Past Anesthesia/Blood Transfusion Reaction / Comment(s): PATIENT HAD SURGERY FOR LEFT EYE DETACHED RETINA AND DEVELOPED GAS BUBBLE IN L EYE. HE WAS INSTRUCTED TO NOT RECEIVE NITROUS OXIDE OR RIDE IN A PLANE UNTIL GAS BUBBLE IS GONE. Past Psychological History: Depression Smoking Status: Former smoker Past Alcohol Use History: Rare Past Drug Use History: None Reported - Past Family History Mother Family Medical History: Cancer, Diabetes Mellitus Additional Family Medical History / Comment(s): Mother at age 84 from [place] Father Additional Family Medical History / Comment(s): Father is with history of coronary artery disease. Brother(s) Family Medical History: Coronary Artery Disease (CAD), Vascular Disorder Additional Family Medical History / Comment(s): Patient has 4 brothers. Two at the age of 44 from coronary artery disease with history of tobacco use and alcohol dependence. One from aneurysm in the chest. General Exam Limitations: no limitations General appearance: alert, in no apparent distress Head exam: Present: atraumatic, normocephalic, normal inspection Eye exam: Present: normal appearance, PERRL, EOMI. Absent: scleral icterus, conjunctival injection, periorbital swelling ENT exam: Present: normal exam, mucous membranes moist Neck exam: Present: normal inspection. Absent: tenderness, meningismus, lymphadenopathy Respiratory exam: Present: normal lung sounds bilaterally. Absent: respiratory distress, wheezes, rales, rhonchi, stridor Cardiovascular Exam: Present: regular rate, normal rhythm, normal heart sounds. Absent: systolic murmur, diastolic murmur, rubs, gallop, clicks GI/Abdominal exam: Present: soft, normal bowel sounds. Absent: distended, tenderness, guarding, rebound, rigid Extremities exam: Present: normal inspection, full ROM, normal capillary refill. Absent: tenderness, pedal edema, joint swelling, calf tenderness Back exam: Present: normal inspection Neurological exam: Present: alert, oriented X3, CN II-XII intact Psychiatric exam: Present: normal affect, normal mood Skin exam: Present: warm, dry, intact, normal color. Absent: rash Course Vital Signs 11/14/24 16:32 Temperature 98.5 F Pulse Rate 80 Respiratory 18 Rate Blood Pressure 114/70 O2 Sat by Pulse 99 Oximetry Chest Pain MDM - MDM Was pt. sent in by a medical professional or institution (, PA, LEASE EXAMINER, urgent care, hospital, or residential...) When possible be specific @ -Patient was sent in by Dr. Gaitan Did you speak to anyone other than the patient for history (EMS, parent, family, police, friend...)? What history was obtained from this source @ -I spoke with Dr. Gaitan and the for history Did you review nursing and triage notes (agree or disagree)? Why? @ -I reviewed and agree with nursing and triage notes Were old charts reviewed (outside hosp., previous admission, EMS record, old EKG, old radiological studies, urgent care reports/EKG's, residential records)? Report findings @ -No old charts were reviewed Differential Diagnosis (chest pain, altered mental status, abdominal pain women, abdominal pain men, vaginal bleeding, weakness, fever, dyspnea, syncope, headache, dizziness, GI bleed, back pain, seizure, CVA, palpatations, mental health, musculoskeletal)? @ -Differential Chest Pain: Stable Angina, Unstable Angina, STEMI, NSTEMI Aortic Dissection, Pneumothorax, Musculoskeletal, Esophageal Spasm GERD, Cholecystitis, Pancreatitis, Zoster, this is not meant to be an all-inclusive list. EKG interpreted by me (3pts min.). @ -yes and demonstrates sinus rhythm with a rate of 75. LA interval 228. QRS 99. QTc of 401. No acute ST segment elevations or depressions X-rays interpreted by me (1pt min.). @ -yes which demonstrates no acute process CT interpreted by me (1pt min.). @ -None done U/S interpreted by me (1pt. min.). @ -None done What testing was considered but not performed or refused? (CT, X-rays, U/S, labs)? Why? @ -None What meds were considered but not given or refused? Why? @ -None Did you discuss the management of the patient with other professionals (professionals i.e. DrDemarcus, PA, LEASE EXAMINER, lab, RT, psych nurse, social security specialist, hot stone setter, teacher, equal opportunity officer, case monitor)? Give summary @ -Spoke with Dr. Gaitan who will take the patient to the [facility]. Also spoke with Micki from [facility] for the admission Was smoking cessation discussed for >3mins.? @ -No Was critical care preformed (if so, how long)? @ -35 minutes for heparinization of the patient Were there social determinants of health that impacted care today? How? (Homelessness, low income, unemployed, alcoholism, drug addiction, transportation, low edu. Level, literacy, decrease access to med. care, snf, rehab)? @ -No Was there de-escalation of care discussed even if they declined (Discuss DNR or withdrawal of care, Hospice)? DNR status @ -No What co-morbidities impacted this encounter? (DM, HTN, Smoking, COPD, CAD, Cancer, CVA, ARF, Chemo, Hep., AIDS, mental health diagnosis, sleep apnea, morbid obesity)? @ -Coronary artery disease status post bypass, A-fib Was patient admitted / discharged? Hospital course, mention meds given and route, prescriptions, significant lab abnormalities, going to OR and other pertinent info. @ -Upon arrival patient seen and evaluated in room 20. He is hooked to continuous pulse ox and cardiac monitoring. Twelve-lead EKG is obtained. IV is established and laboratory studies are conducted. Patient is initiated on heparin without a bolus as he does take Eliquis at home. Spoke with Dr. Gaitan who does want to take the patient to the [facility] at this time. Spoke with Micki from [facility] for the admission Undiagnosed new problem with uncertain prognosis? @ -No Drug Therapy requiring intensive monitoring for toxicity (Heparin, Nitro, Insulin, Cardizem)? @ -heparin Were any procedures done? @ -No Diagnosis/symptom? @ -Acute chest pain, possible ACS, history of atherosclerotic coronary artery disease Acute, or Chronic, or Acute on Chronic? @ -Acute on chronic Uncomplicated (without systemic symptoms) or Complicated (systemic symptoms)? @ -Complicated Side effects of treatment? @ -Bleeding Exacerbation, Progression, or Severe Exacerbation? @ -No Poses a threat to life or bodily function? How? (Chest pain, [place], [place], pneumonia, PE, COPD, DKA, ARF, appy, cholecystitis, CVA, Diverticulitis, Homicidal, Suicidal, threat to staff... and all critical care pts) @ -Yes this patient does have chest pain in the setting of coronary disease Disposition Clinical Impression: Chest pain Disposition: ADMITTED IP TO THIS [facility] Condition: Stable Is patient prescribed a controlled substance at d/c from ED?: No Referrals: Miguel Bautista MD [Primary Care Provider] - 1-2 days Time of Disposition: 17:33 Decision to Admit Reason: Admit from EC Decision Date: 11/14/24 Decision Time: 17:33
[2024-11-14] MEDS ORDERED: NALOXONE 0.4 MG/ML 1 ML VIAL IV PRN (17:34)
--- NOTE | 2024-11-14 18:05 | XR ---
EXAMINATION TYPE: XR chest 2V DATE OF EXAM: 11/14/2024 CLINICAL INDICATION: Male, 74 years old with history of Chest Pain, TECHNIQUE: Frontal and lateral views of the chest are obtained. COMPARISON: Chest x-ray July 01, 2024 FINDINGS: There is mild chronic parenchymal changes bilaterally without suspicious focal air space o pacity, pleural effusion, or pneumothorax seen. Overlying sternal wires and mediastinal clips along w ith left atrial appendage clip are redemonstrated. The cardiac silhouette size is within normal limit s. Old fracture posterior right mid atrium is again seen. Vertebroplasty Macarena L1 level redemonstrated . IMPRESSION: Chronic changes without acute pulmonary process. [facility], , 11/14/2024 6:02 PM
[2024-11-14 18:11] LABS: ALT 14 U/L (4-49); AST 23 U/L (17-59); African American GFR (CKD) 60 (>60 ml/min/1.73 sqM); Albumin 3.8 g/dL (3.5-5.0); Alkaline Phosphatase 93 U/L (38-126); Anion Gap 12 mmol/L; Blood Urea Nitrogen 27 mg/dL (9-20); Calcium 9.2 mg/dL (8.4-10.2); Carbon Dioxide 22 mmol/L (22-30); Chloride 102 mmol/L (98-107); Glucose 163 mg/dL (74-99); Magnesium 2.1 mg/dL (1.6-2.3); Non-African American GFR(CKD) 52 (>60 ml/min/1.73 sqM); Potassium 4.6 mmol/L (3.5-5.1); Sodium 136 mmol/L (137-145); Total Bilirubin 0.5 mg/dL (0.2-1.3); Total Protein 6.8 g/dL (6.3-8.2)
[2024-11-14 18:20] LABS: NT-Pro-B-Type Natriuretic Pept 805 pg/mL
[2024-11-14] MEDS: ASPIRIN 325 MG TAB PO ONE (19:00)
[2024-11-14] MEDS: MIDAZOLAM 2 MG/2 ML VIAL IVP ONE (19:02)
[2024-11-14] MEDS: LIDOCAINE 1% INJ 10MG/ML (20 ML MDV) SQ ONE (19:02)
[2024-11-14] MEDS: HYDROmorphone 0.5 MG/0.5 ML SYRINGE IVP ONE ×2 (19:02→19:49)
[2024-11-14] MEDS: IV FLUID CONTINUATION 1,000 ML IV ONE (19:04)
[2024-11-14] MEDS: NITROGLYCERIN SL TABS 0.4 MG TAB SUBLINGUAL ONE (19:04)
[2024-11-14] MEDS: METOPROLOL TARTRATE 5 MG/5 ML VIAL IVP ONE (19:04)
[2024-11-14 19:15] VITALS: RESP 16
[2024-11-14] MEDS: HEPARIN SODIUM 1,000 UN/ML (10ML VL) IVP ONE (19:16)
[2024-11-14] MEDS: CLOPIDOGREL 75 MG TAB PO ONE (19:27)
[2024-11-14] MEDS: NITROGLYCERIN 1000MCG/10ML SYRINGE INTRACORON ONE (19:42)
[2024-11-14] MEDS: IOPAMIDOL-370 100ML BTL INJ ONE ×2 (19:50→19:57)
--- NOTE | 2024-11-14 20:35 | P.CRDCN ---
History of Present Illness Consult date: 11/14/24 History of present illness: - . 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 He has ulcerative colitis with ileostomy, paroxysmal atrial fibrillation, previous CVA with fairly decent recovery, hypertension hyperlipidemia diabetes with CKD. For the last 3 days he has been having episodes of chest tightness and pressure suggestive of unstable angina. Today he had a prolonged episode of chest pain requiring multiple nitroglycerin and he called me advised him to go to the emergency room and evaluated him in the ER. He was pain-free but the symptom pattern was very classic and concerning and therefore I advised prompt cardiac cath possible PCI. Rationale risk benefits options were explained to the patient and his . He was brought to the cardiac Roll Setter expeditiously after seeing him in the ER. He was on Eliquis no heparin was given we would plan heparin management for intervention based on the ACT etc.. RELEVANT PAST MEDICAL HISTORY: #1 CAD with prior bypass surgery in January 2021, PCI of left main into the diagonal branch in June of this year July 05. #2 diabetes with chronic kidney disease #3 ulcerative colitis with ileostomy #4 paroxysmal atrial fibrillation #5 hypertension with previous CVA decent recovery #6 hyperlipidemia. MEDICATIONS: He is on Plavix, Eliquis, Lipitor 40 mg daily, Lopressor 50 mg twice daily Actos 15 mg daily. He also takes insulin Eliquis 5 mg twice daily loperamide 2 mg capsules 4 capsules 3 times a day vitamin D melatonin Cymbalta ALLERGIES: Questionable allergy to codeine and morphine. REVIEW OF SYSTEMS: Exertional chest pain recurrent over the last 3 to 4 days with a prolonged episode today, no hematemesis melena or genitourinary symptoms fever or chills or cough with expectoration. PHYSICIAL EXAM: Vitals are stable no JVD S1-S2 heard normally short systolic murmur at the base, lungs are clear abdomen is soft ileostomy bag is evident lower extremities reveal diminished pulses Central nervous system grossly there are no focal deficits. IMPRESSION: 1. Unstable angina. 2. CAD with prior bypass surgery and PCI. 3. Paroxysmal atrial fibrillation. 4. History of CVA. 5. Hypertension hyperlipidemia #6 History of ulcerative colitis with ileostomy. #7 diabetes with CKD RECOMMENDATIONS: Prompt cardiac catheterization and PCI based on findings discussed with patient and . Prompt cardiac catheterization and PCI based on findings discussed with patient and . They understand the rationale risks benefits and options and wished to proceed. He was brought to the cardiac Roll Setter expeditiously after seeing him in the ER. He was on Eliquis no heparin was given we would plan heparin management for intervention based on the ACT etc.. 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, IDDM type II, ulcerative colitis/had J pouch and later ileostomy, chronic diarrhea/dehydration, ileal polyps, recurrent nephrolithias is, pyelonephritis, BPH, ANGEL occasionally wears Cpap, chronic low iron, bilaterally ATQASUK/aides, takes eye drops to prevent glaucoma History of Any Multi-Drug Resistant Organisms: None Reported Past Surgical History: Appendectomy, Bowel Resection, Coronary Bypass/CABG, Heart Catheterization, Hernia Repair, Joint Replacement Additional Past Surgical History / Comment(s): 2020 CABG with 4 vessel bypass, colectomy with ileostomy, previous J pouch, colonoscopies, EGD, abdominal hernia/mesh, lithotripsy with R ureteral stent, L partial knee arthroplasty, bilateral cataract removal/lens implants, L eye surgery for detached retina. Past Anesthesia/Blood Transfusion Reactions: No Reported Reaction Additional Past Anesthesia/Blood Transfusion Reaction / Comment(s): PATIENT HAD SURGERY FOR LEFT EYE DETACHED RETINA AND DEVELOPED GAS BUBBLE IN L EYE. HE WAS INSTRUCTED TO NOT RECEIVE NITROUS OXIDE OR RIDE IN A PLANE UNTIL GAS BUBBLE IS GONE. Past Psychological History: Depression Smoking Status: Former smoker Past Alcohol Use History: Rare Past Drug Use History: None Reported - Past Family History Mother Family Medical History: Cancer, Diabetes Mellitus Additional Family Medical History / Comment(s): Mother at age 84 from [place] Father Additional Family Medical History / Comment(s): Father is with history of coronary artery disease. Brother(s) Family Medical History: Coronary Artery Disease (CAD), Vascular Disorder Additional Family Medical History / Comment(s): Patient has 4 brothers. Two at the age of 44 from coronary artery disease with history of tobacco use and alcohol dependence. One from aneurysm in the chest. Medications and Allergies Home Medications Medication Instructions Recorded Confirmed Type Finasteride [Proscar] 5 mg PO DAILY 02/06/17 11/14/24 History Tamsulosin [Flomax] 0.4 mg PO HS 02/06/17 11/14/24 History Loratadine [Claritin] 10 mg PO DAILY 08/29/20 11/14/24 History Turmeric Root Extract [Turmeric] 1,000 mg PO DAILY 08/29/20 11/14/24 History Apixaban [Eliquis] 5 mg PO BID 01/12/22 11/14/24 History Ascorbic Acid [Vitamin C] 500 mg PO HS 01/12/22 11/14/24 History DULoxetine HCL [Cymbalta] 30 mg PO DAILY 01/15/22 11/14/24 History Cholecalciferol [Vitamin D3 (25 25 mcg PO HS 05/06/22 11/14/24 History Mcg = 1000 Iu)] Ferrous Sulfate [Iron (65 MG 325 mg PO HS 05/06/22 11/14/24 History Elemental)] Loperamide [Imodium] 2 - 4 mg PO QID 05/06/22 11/14/24 History Cranberry(Unknown Dose) 1 cap PO HS 07/01/24 11/14/24 History Fesoterodine Fumarate 8 mg PO DAILY 07/01/24 11/14/24 History [Fesoterodine Fumarate ER] Folate 400mg 400 mg PO HS 07/01/24 11/14/24 History Insulin Glargine,Hum.rec.anlog 21 unit SQ DIRECTED 07/01/24 11/14/24 History [Basaglar Kwikpen U-100] Insulin Lispro [humaLOG Kwikpen] 5 unit SQ DIRECTED 07/01/24 11/14/24 History Melatonin 5 mg PO HS 07/01/24 11/14/24 History Omeprazole 20 mg PO DAILY 07/01/24 11/14/24 History Pioglitazone [Actos] 15 mg PO MOWEFRSA 07/01/24 11/14/24 History Turmeric Root Extract [Turmeric 500 mg PO HS 07/01/24 11/14/24 History Curcumin] Atorvastatin [Lipitor] 40 mg PO HS #30 tab 07/06/24 11/14/24 Rx Clopidogrel [Plavix] 75 mg PO DAILY #30 tab 07/06/24 11/14/24 Rx Metoprolol Tartrate [Lopressor] 50 mg PO BID #60 tab 07/06/24 11/14/24 Rx Nitroglycerin Sl Tabs [Nitrostat] 0.4 mg SUBLINGUAL Q5M PRN #20 tab 07/06/24 11/14/24 Rx Ezetimibe [Zetia] 10 mg PO DAILY 11/14/24 11/14/24 History Guar Gum 400mg 800 mg PO BID 11/14/24 11/14/24 History Latanoprost [Latanoprost 0.005%] 1 drop BOTH EYES HS 11/14/24 11/14/24 History Allergies Allergy/AdvReac Type Severity Reaction Status Date / Time codeine Allergy Rash/Hives Verified 11/14/24 19:14 morphine Allergy Rash/Hives Verified 11/14/24 19:14 Physical Exam Vitals: Vital Signs Temp Pulse Resp BP Pulse Ox 11/14/24 18:06 70 16 112/68 98 11/14/24 16:32 98.5 F 80 18 114/70 99 Intake and Output 11/14/24 11/14/24 11/14/24 06:59 14:59 22:59 Intake Total 350 Balance 350 Intake: IV 350 Other: Weight 74.843 kg Results 11/14/24 17:12 11/14/24 17:12 Cardiac Enzymes 11/14/24 11/14/24 Range/Units 17:12 17:12 AST 23 (17-59) U/L Troponin I <0.012 (0.000-0.034) ng/mL Coagulation 11/14/24 Range/Units 17:12 PT 11.6 (10.0-12.5) sec APTT 26.7 (22.0-30.0) sec CBC 11/14/24 Range/Units 17:12 WBC 9.38 (4.50-10.00) 10*3/uL RBC 3.30 L (4.40-5.60) 10*6/uL Hgb 9.9 L (13.0-17.0) g/dL Hct 30.6 L (39.6-50.0) % Plt Count 181 (140-440) 10*3/uL Comprehensive Metabolic Panel 11/14/24 Range/Units 17:12 Sodium 136 L (137-145) mmol/L Potassium 4.6 (3.5-5.1) mmol/L Chloride 102 (98-107) mmol/L Carbon Dioxide 22 (22-30) mmol/L BUN 27 H (9-20) mg/dL Creatinine 1.33 H (0.66-1.25) mg/dL Glucose 163 H (74-99) mg/dL Calcium 9.2 (8.4-10.2) mg/dL AST 23 (17-59) U/L ALT 14 (4-49) U/L Alkaline Phosphatase 93 (38-126) U/L Total Protein 6.8 (6.3-8.2) g/dL Albumin 3.8 (3.5-5.0) g/dL Current Medications Generic Name Dose Route Start Last Admin Trade Name Freq PRN Reason Stop Dose Admin Heparin Sodium (Porcine) 0 unit 11/14/24 17:02 Heparin Sodium 1,000 Un/Ml (10ml Vl) IV PER PROTOCOL PRN Low PTT Protocol Heparin Sodium/Sodium Chloride 250 mls @ 8.981 mls/hr 11/14/24 17:15 25,000 unit/ Sodium Chloride IV .Q24H KRISTIN Protocol 12 UNITS/KG/HR Naloxone HCl 0.2 mg 11/14/24 17:34 Naloxone 0.4 Mg/Ml 1 Ml Vial IV Q2M PRN Opioid Reversal Intake and Output 11/14/24 11/14/24 11/14/24 06:59 14:59 22:59 Intake Total 350 Balance 350 Intake: IV 350 Other: Weight 74.843 kg Patient Weight 11/15/24 06:59 Weight 74.843 kg 11/14/24 17:12 11/14/24 17:12
--- NOTE | 2024-11-14 20:51 | P.CARDCATH ---
Date of Procedure: 11/14/24 Description of Procedure: History: Patient was referred for cardiac catheterization to evaluate for CAD. This is a 74-year-old gentleman with a known history of CAD prior bypass surgery in January 2021 and recent PCI of left main into the diagonal performed on July 05, 2024. He was advised to come into the emergency room because of recurrent chest pain suggestive of unstable angina responding to nitroglycerin. He was seen in the emergency room and advised prompt cardiac cath. Rationale risk benefits options were explained to the patient and . His other comorbid conditions include diabetes with CKD, paroxysmal atrial fibrillation hypertension, hyperlipidemia, previous CVA and diabetes with CKD. He had a ABBOTT to LAD with a sequential graft to the diagonal, vein graft to the PDA and PLV branches of RCA. Previous catheter revealed that the diagonal attachment to the ABBOTT graft was subtotally occluded but the vein graft to the RCA was patent with diffuse disease within the PLV. Procedure: #1 left heart catheterization and coronary angiography with selective injection of ABBOTT and bypass graft #2 intravascular ultrasound adjunctive procedure before and after PCI #3 PTCA of left main, LAD and diagonal branch with a drug-eluting stent in the diagonal branch, left main dilated with a 4.5 noncompliant balloon and diagonal dilated with a 3.5 noncompliant balloon Performed by: Dr. Israel Gaitan, assisted by Dr. Sadiq Reddy Procedure Details: The risks, benefits, complications, treatment options, and expected outcomes were discussed with the patient. The patient and/or family concurred with the proposed plan, giving informed consent. Patient was brought to the labelling machine operator after IV hydration was begun and oral premedication was given. Patient was further sedated with midazolam. He was given IV Dilaudid and beta- blockers during the procedure for angina that occurred on the table Patient was prepped and draped in the usual manner. Under strict aseptic precautions and local anesthesia a 6 Vietnamese introducer was placed in the right femoral artery. Using a JL 4.0 and a JR 4/0 catheters I performed coronary angiography and a pigtail catheter was used to check LV pressures and LV gram was not performed. I started off with a guide catheter with JL 4 in view of his known recent PCI. Following this with a JR4 catheter we did selective coronary angiography of his left main, [place]-apache RCA, vein graft to the RCA. Following the procedure an Angio-Seal device was used to secure hemostasis and because of a very small hematoma FemoStop was applied for 2 hours. PCI procedure details: We started with a standard left JR4 guide catheter to cannulate the left main. We used initially a whisper wire to cross into the diagonal branch was kept in the sidebranch and then we used a run-through wire and kept it distally in the diagonal branch. Using a 3.0 balloon noncompliant of 12 mm length we dilated the left main into the diagonal branch. Following this we used a 3.5 NC trek balloon and dilated the diagonal branch and the same balloon was used to dilate into the left main. Subsequently we performed intravascular ultrasound and noted that there was disease beyond the stented segment as well. A 15 mm long 3.0 caliber Xience stent was deployed in this area. Entire stented segment was then dilated with a 3.5 NC trek balloon. The left main appeared to be larger. For the left main we used a 4.5 caliber NC trek balloon to dilate the left main. Excellent angiographic result was achieved. IVUS revealed that the stents were fully expanded well opposed and the left main stent especially was remarkably well-expanded and good apposition noted with a comparable reference diameter of 4.5 mm. Excellent angiographic result without complication was achieved. Patient received 300 mg of Plavix. He was on Eliquis and Plavix. He received aspirin prior to the procedure. He was already on Eliquis he received 4000 units of heparin and ACT was 214. He will be on a aspirin Plavix Eliquis combination for 3 weeks and then combination with Plavix and Eliquis thereafter for 1 year without interruption. Moderate conscious sedation time was 59 minutes. Patient's oxygen saturation hemodynamics and EKG were monitored closely. After the procedure was completed the sheaths and catheters were all removed. Hemostasis was achieved with Angio-Seal device and FemoStop. Findings: Hemodynamics: Left ventricle end-diastolic pressure was about 18 mmHg no gradient across aortic valve Left Main: 80% ostial and diffuse disease within the previously placed stent suggestive of being a culprit lesion LAD: Totally occluded after diagonal branch but the opacified LAD is also diseased where the stent was placed with in-stent restenosis CIRC: Nondominant vessel diffuse disease goes into the groove branch with limited opacification RCA: Very dominant tortuous vessel diffuse disease distally PDA and PLV branches are noted PDA appears to be smaller PLV has diffuse disease in it of about 70- 80% SVG(s): SVG to PDA and PLV branches of RCA is patent with diffuse disease in the PLV branch BEV: Left internal mammary artery graft to the LAD and sequential to the diagonal is noted the diagonal attachment has significant disease LV: LV gram was not performed Closure Device: Angio-Seal Complications: Estimated Blood Loss: Minimal Impression: This patient has elevated filling pressures no gradient right dominant system with diffuse disease in the RCA distally of 70%, 80 to 90% left main ostium and proximal lesion as well as in-stent restenosis into the diagonal branch. Vein graft to the PDA and PLV branches of RCA is patent with diffuse disease in the PLV branch, ABBOTT to LAD is patent but the attachment of ABBOTT to the diagonal is subtotally occluded. LV gram was not performed Pre Procedure Diagnosis: Unstable angina Final Post Procedure Diagnosis: Unstable angina with in-stent restenosis of left main LAD and diagonal Recommendation: Urgent PCI of left main/ LAD into the diagonal Complications: None; patient tolerated the procedure well. Disposition: Pacu - hemodynamically stable. Condition: Stable Discharge Disposition: To telemetry on a 5 mics nitro drip hemodynamically stable. Findings and results discussed at length with the patient and daughter.
[2024-11-14] MEDS ORDERED: MAG HYDROX/AL HYDROX/SIMETH 30 ML CUP PO PRN (20:54)
[2024-11-14] MEDS ORDERED: ATROPINE SULFATE 0.1 MG/ML 10ML SYRINGE IV PRN (20:54)
[2024-11-14] MEDS ORDERED: NITROGLYCERIN SL TABS 0.4 MG TAB SUBLINGUAL PRN (20:54)
[2024-11-14] MEDS ORDERED: ZOLPIDEM 5 MG TAB PO PRN (20:54)
[2024-11-14] MEDS ORDERED: RX INFO: IV CONTRAST WAS GIVEN 1 EACH MISC MISCELLANE PRN (20:54)
[2024-11-14] MEDS: METOPROLOL TARTRATE 50 MG TAB PO SCH (21:59)
[2024-11-14] MEDS: ATORVASTATIN 80 MG TAB PO SCH (21:59)
[2024-11-14] MEDS: INSULIN GLARGINE (LANTUS) 100 UNIT/ML SYR SQ SCH (21:59)
[2024-11-14] MEDS: NITROGLYCERIN-D5W PMX 50 MG in DEXTROSE/WATER 1 250ML.BAG IV SCH (22:06)
[2024-11-14] MEDS: SODIUM CHLORIDE 0.9% 1,000 ML in EMPTY BAG 1 BAG IV SCH (22:07)
[2024-11-15] MEDS: INSULIN LISPRO (HumaLOG) 100 UNIT/ML 10 mL VL SQ SCH ×2 (06:20→11:44)
[2024-11-15] MEDS: HEPARIN SOD,PORK IN 0.45% NACL 25,000 UNIT in 0.45% NACL 1 250ML.BAG IV SCH (06:22)
[2024-11-15] MEDS: NITROGLYCERIN-D5W PMX 50 MG in DEXTROSE/WATER 1 250ML.BAG IV SCH (06:22)
--- NOTE | 2024-11-15 07:11 | P.PN ---
Subjective Progress Note Date: 11/15/24 HPI: This is a 74-year-old gentleman admitted yesterday with unstable angina underwent prompt cardiac catheterization which revealed severe stenosis within the previously placed stent in left main into the diagonal through the LAD. He underwent PCI of the in-stent restenosis with a additional stent in the diagonal of 3.0 caliber and 15 mm length. He also had postdilatation performed of that vessel and within the diagonal a 3.5 noncompliant balloon was used to dilate. The previously placed stent in the left main was dilated with a 4.5 noncompliant balloon. Excellent angiographic result was achieved. Postprocedure course is uneventful he is resting comfortably right groin is clean and dry with a good pulse. No chest pain or shortness of breath he is doing well. EKG revealed sinus rhythm without acute changes with nondiagnostic Q waves. Vitals are stable. He can be discharged later on today probably around 4 or 5 PM after he is up and about and we have reviewed the labs. EKG is unremarkable discussed my thoughts in detail with the patient will speak to his . PHYSICIAL EXAM: Vitals are stable there is no JVD S1-S2 heard normally no significant murmurs lungs are clear abdomen is soft lower extremities reveal an palpable pulses in the right groin is clean and dry. Central nervous system no focal deficit. IMPRESSION: 1. Unstable angina status post PCI of left main into the diagonal in-stent restenotic lesion and additional stenting excellent result. 2. Ulcerative colitis with ileostomy. 3. Diabetes with CKD. 4. Paroxysmal atrial fibrillation. 5. CAD with a prior bypass surgery and PCI in June of this year also. RECOMMENDATIONS: Plan is to review his labs increase activity if he has no further symptoms he can be discharged at 4 or 5 PM today and I will see him in the office in about a week. Discussed my thoughts in detail with the patient and I will speak to his .. Objective - Vital Signs Vital signs: Vital Signs Temp 97.9 F 11/15/24 03:50 Pulse 78 11/15/24 03:50 Resp 16 11/15/24 03:50 BP 95/57 11/15/24 03:50 Pulse Ox 97 11/15/24 03:50 FiO2 Intake & Output 11/14/24 11/15/24 11/15/24 18:59 06:59 18:59 Intake Total 350 Output Total 400 Balance -50 Weight 74.843 kg 72.7 kg Intake: IV 350 Output: Urine 400 Other: Voiding Method Toilet - Labs CBC & Chem 7: 11/14/24 17:12 11/14/24 17:12 Labs: Abnormal Lab Results - Last 24 Hours (Table) 11/14/24 11/14/24 Range/Units 17:12 17:12 RBC 3.30 L (4.40-5.60) 10*6/uL Hgb 9.9 L (13.0-17.0) g/dL Hct 30.6 L (39.6-50.0) % Lymphocytes # 0.88 L (0.90-5.00) 10*3/uL Sodium 136 L (137-145) mmol/L BUN 27 H (9-20) mg/dL Creatinine 1.33 H (0.66-1.25) mg/dL Glucose 163 H (74-99) mg/dL
[2024-11-15 07:34] LABS: Basophils # (A) 0.04 10*3/uL (0.00-0.10); Basophils % (A) 0.5 %; Eosinophils # (A) 0.16 10*3/uL (0.04-0.35); HCT 29.2 % (39.6-50.0); HGB 9.2 g/dL (13.0-17.0); Lymphocytes # (A) 0.86 10*3/uL (0.90-5.00); Lymphocytes % (A) 10.6 %; MCH 29.9 pg (27.0-32.0); MCHC 31.5 g/dL (32.0-37.0); MCV 94.8 fL (80.0-97.0); Monocytes # (A) 0.74 10*3/uL (0.20-1.00); Monocytes % (A) 9.1 %; Neutrophils # (A) 6.31 10*3/uL (1.80-7.70); Neutrophils % (A) 77.4 %; Platelet Count 166 10*3/uL (140-440); RBC 3.08 10*6/uL (4.40-5.60); RDW 14.4 % (11.5-14.5); WBC 8.14 10*3/uL (4.50-10.00)
[2024-11-15 07:45] LABS: African American GFR (CKD) 63 (>60 ml/min/1.73 sqM); Anion Gap 9 mmol/L; Blood Urea Nitrogen 22 mg/dL (9-20); Calcium 8.8 mg/dL (8.4-10.2); Carbon Dioxide 24 mmol/L (22-30); Chloride 105 mmol/L (98-107); Glucose 110 mg/dL (74-99); Non-African American GFR(CKD) 54 (>60 ml/min/1.73 sqM); Potassium 4.1 mmol/L (3.5-5.1); Sodium 138 mmol/L (137-145)
[2024-11-15 10:15] VITALS: BP 118/68; PULSE 70; TEMP 97.8
[2024-11-15] MEDS: ASPIRIN 81 MG PO SCH (10:17)
[2024-11-15] MEDS: CLOPIDOGREL 75 MG TAB PO SCH (10:17)
[2024-11-15] MEDS: LOPERAMIDE 2 MG CAP PO PRN (10:17)
[2024-11-15] MEDS: PIOGLITAZONE 15 MG TAB PO SCH (10:17)
[2024-11-15] MEDS: DULoxetine HCL 30 MG CAPSULE.DR PO SCH (10:17)
[2024-11-15 11:25] VITALS: BMI 21.7
--- NOTE | 2024-11-15 11:58 | P.HPIM ---
History of Present Illness H&P Date: 11/15/24 History of present illness; 74-year-old gentleman past medical his significant for atrial fibrillation, coronary artery disease disease who presented to the hospital because of chest pain. Patient was all right this morning when started having chest pain 0 central location, pressure-like, nonradiating, no aggravating or relieving factor associated chest pain. Patient had to take nitroglycerin relieved the chest pain. There is no complaint of shortness of breath. Patient denies any palpitation. There is no complaint of orthopnea or PND. Denies any nausea, vomiting abdominal pain. Patient denies any complaint of dizziness. There is no complaint of headache. Because of chest pain, daniel delgado called his manager managing told him to the ER Initial lab work done in the ER showed WBC 9.8, hemoglobin 9.9, platelet count 181, sodium 130s, potassium 4.6, BUN 27, creatinine 1.33, glucose 163, calcium 9.2, magnesium 2.1 EKG done in the ER showed heart rate of 75, no ST segment elevation or depress ion seen, no T-wave inversions seen. Chest x-ray done in the ER showed chronic changes with out acute pulmonary process Cardiology reviewed patient and decided take him to the cardiac cath, cardiac ca th done showed diffuse disease in the RCA distally of 70%, 80 to 90% left main ostium and proximal lesion as well as in-stent restenosis into the diagonal branch. Vein graft to the PDA and PLV branches of RCA is patent with diffuse disease in the PLV branch, ABBOTT to LAD is patent but the attachment of ABBOTT to the diagonal is subtotally occluded and underwent PTCA of left main, LAD and diagonal branch with a drug-eluting stent in the diagonal branch, left main dilated with a 4.5 noncompliant balloon and diagonal dilated with a 3.5 noncompliant balloon Patient admitted to internal medicine service REVIEW OF SYSTEMS: CONSTITUTIONAL: No fever, no malaise, no fatigue. HEENT: No recent visual problems or hearing problems. Denied any sore throat. CARDIOVASCULAR: As mentioned above PULMONARY: No shortness of breath, no cough, no hemoptysis. GASTROINTESTINAL: No diarrhea, no nausea, no vomiting, no abdominal pain. NEUROLOGICAL: No headaches, no weakness, no numbness. HEMATOLOGICAL: Denies any bleeding or petechiae. GENITOURINARY: Denies any burning micturition, frequency, or urgency. MUSCULOSKELETAL/RHEUMATOLOGICAL: Denies any joint pain, swelling, or any muscle pain. ENDOCRINE: Denies any polyuria or polydipsia. The rest of the 14-point review of systems is negative. PHYSICAL EXAMINATION: GENERAL: The patient is alert and oriented x3, not in any acute distress. Well developed, well nourished. HEENT: Pupils are round and equally reacting to light. EOMI. No scleral icterus. No conjunctival pallor. Normocephalic, atraumatic. No pharyngeal erythema. No thyromegaly. CARDIOVASCULAR: S1 and S2 present. No murmurs, rubs, or gallops. PULMONARY: Chest is clear to auscultation, no wheezing or crackles. ABDOMEN: Soft, nontender, nondistended, normoactive bowel sounds. No palpable organomegaly. MUSCULOSKELETAL: No joint swelling or deformity. EXTREMITIES: No cyanosis, clubbing, or pedal edema. NEUROLOGICAL: Gross neurological examination did not reveal any focal deficits. SKIN: No rashes. Assessment and plan Unstable angina. CAD with prior bypass surgery and PCI. Paroxysmal atrial fibrillation. History of CVA. Hypertension hyperlipidemia history of ulcerative colitis with ileostomy. diabetes with CKD Monitor vital signs Monitor CBC Monitor CMP Continue telemetry monitoring status post cardiac cath showing diffuse disease in the RCA distally of 70%, 80 to 90% left main ostium and proximal lesion as well as in-stent restenosis into the diagonal branch. Vein graft to the PDA and PLV branches of RCA is patent with diffuse disease in the PLV branch, ABBOTT to LAD is patent but the attachment of ABBOTT to the diagonal is subtotally occluded and underwent PTCA of left main, LAD and diagonal branch with a drug-eluting stent in the diagonal branch, left main dilated with a 4.5 noncompliant balloon and diagonal dilated with a 3.5 noncompliant balloon Start aspirin, continue Plavix Resume Eliquis Resume Lopressor Monitor blood sugar levels, continue sliding scale insulin, resume Lantus Cardiology following Labs and medication were reviewed.. Continue same treatment. Continue with symptomatic treatment. Resume home medication. Monitor labs and vitals. DVT and GI prophylaxis. Further recommendations as per clinical course of the patient Dictation was produced using [employer] software. please excuse any grammatical, word or spelling errors. 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, IDDM type II, ulcerative colitis/had J pouch and later ileostomy, chronic diarrhea/dehydration, ileal polyps, recurrent nephrolithiasis, pyelonephritis, BPH, ANGEL occasionally wears Cpap, chronic low iron, bilaterally ALTURAS/aides, takes eye drops to prevent glaucoma History of Any Multi-Drug Resistant Organisms: None Reported Past Surgical History: Appendectomy, Bowel Resection, Coronary Bypass/CABG, Heart Catheterization, Hernia Repair, Joint Replacement Additional Past Surgical History / Comment(s): 2020 CABG with 4 vessel bypass, colectomy with ileostomy, previous J pouch, colonoscopies, EGD, abdominal hernia/mesh, lithotripsy with R ureteral stent, L partial knee arthroplasty, bilateral cataract removal/lens implants, L eye surgery for detached retina. Past Anesthesia/Blood Transfusion Reactions: No Reported Reaction Additional Past Anesthesia/Blood Transfusion Reaction / Comment(s): PATIENT HAD SURGERY FOR LEFT EYE DETACHED RETINA AND DEVELOPED GAS BUBBLE IN L EYE. HE WAS INSTRUCTED TO NOT RECEIVE NITROUS OXIDE OR RIDE IN A PLANE UNTIL GAS BUBBLE IS GONE. Past Psychological History: Depression Smoking Status: Former smoker Past Alcohol Use History: Rare Past Drug Use History: None Reported - Past Family History Mother Family Medical History: Cancer, Diabetes Mellitus Additional Family Medical History / Comment(s): Mother at age 84 from [place] Father Additional Family Medical History / Comment(s): Father is with history of coronary artery disease. Brother(s) Family Medical History: Coronary Artery Disease (CAD), Vascular Disorder Additional Family Medical History / Comment(s): Patient has 4 brothers. Two at the age of 44 from coronary artery disease with history of tobacco use and alcohol dependence. One from aneurysm in the chest. Medications and Allergies Home Medications Medication Instructions Recorded Confirmed Type Finasteride [Proscar] 5 mg PO DAILY 02/06/17 11/14/24 History Tamsulosin [Flomax] 0.4 mg PO HS 02/06/17 11/14/24 History Loratadine [Claritin] 10 mg PO DAILY 08/29/20 11/14/24 History Turmeric Root Extract [Turmeric] 1,000 mg PO DAILY 08/29/20 11/14/24 History Apixaban [Eliquis] 5 mg PO BID 01/12/22 11/14/24 History Ascorbic Acid [Vitamin C] 500 mg PO HS 01/12/22 11/14/24 History DULoxetine HCL [Cymbalta] 30 mg PO DAILY 01/15/22 11/14/24 History Cholecalciferol [Vitamin D3 (25 25 mcg PO HS 05/06/22 11/14/24 History Mcg = 1000 Iu)] Ferrous Sulfate [Iron (65 MG 325 mg PO HS 05/06/22 11/14/24 History Elemental)] Loperamide [Imodium] 2 - 4 mg PO QID 05/06/22 11/14/24 History Cranberry(Unknown Dose) 1 cap PO HS 07/01/24 11/14/24 History Fesoterodine Fumarate 8 mg PO DAILY 07/01/24 11/14/24 History [Fesoterodine Fumarate ER] Folate 400mg 400 mg PO HS 07/01/24 11/14/24 History Insulin Glargine,Hum.rec.anlog 21 unit SQ DIRECTED 07/01/24 11/14/24 History [Basaglar Kwikpen U-100] Insulin Lispro [humaLOG Kwikpen] 5 unit SQ DIRECTED 07/01/24 11/14/24 History Melatonin 5 mg PO HS 07/01/24 11/14/24 History Omeprazole 20 mg PO DAILY 07/01/24 11/14/24 History Pioglitazone [Actos] 15 mg PO MOWEFRSA 07/01/24 11/14/24 History Turmeric Root Extract [Turmeric 500 mg PO HS 07/01/24 11/14/24 History Curcumin] Atorvastatin [Lipitor] 40 mg PO HS #30 tab 07/06/24 11/14/24 Rx Clopidogrel [Plavix] 75 mg PO DAILY #30 tab 07/06/24 11/14/24 Rx Metoprolol Tartrate [Lopressor] 50 mg PO BID #60 tab 07/06/24 11/14/24 Rx Nitroglycerin Sl Tabs [Nitrostat] 0.4 mg SUBLINGUAL Q5M PRN #20 tab 07/06/24 11/14/24 Rx Ezetimibe [Zetia] 10 mg PO DAILY 11/14/24 11/14/24 History Guar Gum 400mg 800 mg PO BID 11/14/24 11/14/24 History Latanoprost [Latanoprost 0.005%] 1 drop BOTH EYES HS 11/14/24 11/14/24 History Allergies Allergy/AdvReac Type Severity Reaction Status Date / Time codeine Allergy Rash/Hives Verified 11/14/24 19:14 morphine Allergy Rash/Hives Verified 11/14/24 19:14 Physical Exam Vitals: Vital Signs Temp Pulse Pulse Resp BP BP Pulse Ox 11/15/24 03:50 97.9 F 78 16 95/57 97 11/15/24 00:16 98.2 F 84 16 97/55 96 11/14/24 21:08 98.2 F 80 16 101/66 99 11/14/24 18:06 70 16 112/68 98 11/14/24 16:32 98.5 F 80 18 114/70 99 Intake and Output 11/14/24 11/15/24 11/15/24 22:59 06:59 14:59 Intake Total 350 Output Total 400 Balance 350 -400 Intake: IV 350 Output: Urine 400 Other: Voiding Method Toilet Weight 74.843 kg 72.7 kg Results CBC & Chem 7: 11/15/24 07:02 11/15/24 07:02 Labs: Abnormal Lab Results - Last 24 Hours (Table) 11/14/24 11/14/24 11/15/24 Range/Units 17:12 17:12 07:02 RBC 3.30 L 3.08 L (4.40-5.60) 10*6/uL Hgb 9.9 L 9.2 L (13.0-17.0) g/dL Hct 30.6 L 29.2 L (39.6-50.0) % MCHC 31.5 L (32.0-37.0) g/dL Lymphocytes # 0.88 L 0.86 L (0.90-5.00) 10*3/uL Sodium 136 L (137-145) mmol/L BUN 27 H (9-20) mg/dL Creatinine 1.33 H (0.66-1.25) mg/dL Glucose 163 H (74-99) mg/dL 11/15/24 Range/Units 07:02 RBC (4.40-5.60) 10*6/uL Hgb (13.0-17.0) g/dL Hct (39.6-50.0) % MCHC (32.0-37.0) g/dL Lymphocytes # (0.90-5.00) 10*3/uL Sodium (137-145) mmol/L BUN 22 H (9-20) mg/dL Creatinine 1.28 H (0.66-1.25) mg/dL Glucose 110 H (74-99) mg/dL Thrombosis Risk Factor Assmnt - Choose All That Apply Any of the Below Risk Factors Present?: No Each Risk Factor Represents 3 Points: Age 75 years or older Thrombosis Risk Factor Assessment Total Risk Factor Score: 3 Thrombosis Risk Factor Assessment Level: Moderate Risk
[2024-11-15] MEDS ORDERED: MELATONIN 5 MG TABLET PO SCH (21:00)
== END 2024-11-15 16:07 | disposition home or self-care (01) | DRG 322 ==
LOC: EC 16:30 → 3SCARD 17:36 → OBSVTOIN 17:37 → 3SCARD 19:38 → 2SICU 20:04 → 3SCARD 20:09
PROVIDERS: ADMIT Hospitalist; ATTEND Hospitalist
PROC: B2131ZZ Fluoroscopy of Multiple Coronary Artery Bypass Grafts using Low Osmolar Contrast (ICD-10-PCS; 2024-11-14)
PROC: B2181ZZ Fluoroscopy of Left Internal Mammary Bypass Graft using Low Osmolar Contrast (ICD-10-PCS; 2024-11-14)
PROC: 027236Z Dilation of Coronary Artery, Three Arteries with Three Drug-eluting Intraluminal Devices, Percutaneous Approach (ICD-10-PCS; principal; 2024-11-14 18:37)
PROC: 4A023N7 Measurement of Cardiac Sampling and Pressure, Left Heart, Percutaneous Approach (ICD-10-PCS; 2024-11-14 18:37)
PROC: B2111ZZ Fluoroscopy of Multiple Coronary Arteries using Low Osmolar Contrast (ICD-10-PCS; 2024-11-14 18:37)
PROC: B240ZZ3 Ultrasonography of Single Coronary Artery, Intravascular (ICD-10-PCS; 2024-11-14 18:37)
DX: T82.855A Stenosis of coronary artery stent, initial encounter (principal); I25.110 Atherosclerotic heart disease of native coronary artery with unstable angina pectoris; E11.22 Type 2 diabetes mellitus with diabetic chronic kidney disease; N18.30 Chronic kidney disease, stage 3 unspecified; F32.A Depression, unspecified; I12.9 Hypertensive chronic kidney disease with stage 1 through stage 4 chronic kidney disease, or unspecified chronic kidney disease; I48.0 Paroxysmal atrial fibrillation; Z79.4 Long term (current) use of insulin; T82.857A Stenosis of other cardiac prosthetic devices, implants and grafts, initial encounter; Z87.19 Personal history of other diseases of the digestive system; E78.5 Hyperlipidemia, unspecified; H91.90 Unspecified hearing loss, unspecified ear; K21.9 Gastro-esophageal reflux disease without esophagitis; N40.0 Benign prostatic hyperplasia without lower urinary tract symptoms; G47.33 Obstructive sleep apnea (adult) (pediatric); Z86.0100 Personal history of colon polyps, unspecified; Z71.6 Tobacco abuse counseling; Z79.01 Long term (current) use of anticoagulants; Z79.02 Long term (current) use of antithrombotics/antiplatelets; Z79.82 Long term (current) use of aspirin; Z79.84 Long term (current) use of oral hypoglycemic drugs; Z87.442 Personal history of urinary calculi; Z86.73 Personal history of transient ischemic attack (TIA), and cerebral infarction without residual deficits; Z96.1 Presence of intraocular lens; Z95.1 Presence of aortocoronary bypass graft; Z98.42 Cataract extraction status, left eye; Z98.41 Cataract extraction status, right eye; Z96.653 Presence of artificial knee joint, bilateral; Z82.49 Family history of ischemic heart disease and other diseases of the circulatory system; Y71.2 Prosthetic and other implants, materials and accessory cardiovascular devices associated with adverse incidents; Z79.899 Other long term (current) drug therapy; Z88.5 Allergy status to narcotic agent
CPT/HCPCS: 36415; 71046; 80048; 80053; 83735; 83880; 84484; 85025; 85610; 85730; 92921; 92978; 93005; 93459; 99291